=== PATIENT | male | born 1955 | race Caucasian/White ===

== ENCOUNTER 2019-01-09 11:03 | Inpatient (IN) | payer MEDICARE, MEDICAID ==
[~2019-01-09] VITALS: Ht 172.7 cm; Wt 73.2 kg
[2019-01-09] MEDS ORDERED: IV NORMAL SALINE 1,000ML 1,000 ML IV ONE ×2 (11:45→13:15)
[2019-01-09 11:50] LABS: BASO % 0 % (0-3); EOS % 0 % (0-3); HEMATOCRIT 43.8 % (39.0-53.0); HEMOGLOBIN 14.4 g/dL (13.0-17.5); LYMPH # 1.9 x10^3/uL (1.0-4.8); LYMPH % 15 % (24-48); MEAN CORPUSCULAR HEMOGLOBIN 29 pg (25-35); MEAN CORPUSCULAR HGB CONC 33 g/dL (31-37); MEAN CORPUSCULAR VOLUME 89 fL (79-100); MONO # 0.9 x10^3/uL (0.0-1.1); MONO % 7 % (0-9); NEUT # 9.7 x10^3uL (1.8-7.7); NEUT % 77 % (31-73); PLATELET COUNT 254 x10^3/uL (140-400); RED BLOOD COUNT 4.94 x10^6/uL (4.30-5.70); RED CELL DISTRIBUTION WIDTH 13.6 % (11.5-14.5); WHITE BLOOD COUNT 12.5 x10^3/uL (4.0-11.0)
[2019-01-09 12:11] LABS: ACETAMIN < 2.0 mcg/mL (10-30); SALIC 1.6 mg/dL (2.8-20.0)
[2019-01-09 12:17] LABS: ALBUMIN 3.7 g/dL (3.4-5.0); ALBUMIN/GLOBULIN RATIO 0.9 (1.0-1.7); CALCIUM 9.6 mg/dL (8.5-10.1); CREATININE 1.5 mg/dL (0.7-1.3); GFR 47.6; MAGNESIUM 2.3 mg/dL (1.8-2.4); POTASSIUM 3.6 mmol/L (3.5-5.1); TOTAL BILIRUBIN 2.3 mg/dL (0.2-1.0); TOTAL PROTEIN 7.6 g/dL (6.4-8.2)
--- NOTE | 2019-01-09 13:07 | PHYS DOC ---
Past History Past Medical History: Depression, Diabetes, High Cholesterol, Hypertension, Hypothyroid, Other Additional Past Medical Histor: schizoaffective disorder, insomnia, rosacea Past Surgical History: Appendectomy, Tonsillectomy Alcohol Use: None Drug Use: None Adult General Chief Complaint Chief Complaint: PSYCH EVALUATION HPI HPI Patient is a [age] year old [sex] who presents with [] Review of Systems Review of Systems Constitutional: Denies fever or chills [] Eyes: Denies change in visual acuity, redness, or eye pain [] HENT: Denies nasal congestion or sore throat [] Respiratory: Denies cough or shortness of breath [] Cardiovascular: No additional information not addressed in HPI [] GI: Denies abdominal pain, nausea, vomiting, bloody stools or diarrhea [] : Denies dysuria or hematuria [] Musculoskeletal: Denies back pain or joint pain [] Integument: Denies rash or skin lesions [] Neurologic: Denies headache, focal weakness or sensory changes [] Endocrine: Denies polyuria or polydipsia [] All other systems were reviewed and found to be within normal limits, except as documented in this note. Current Medications Current Medications Current Medications Medications (Trade) Dose Ordered Sig/Sanna Start Time Stop Time Status Last Admin Dose Admin Sodium Chloride 1,000 ml @ 1,000 mls/hr 1X ONCE 01/09/19 11:45 01/09/19 12:44 DC 01/09/19 11:52 1,000 MLS/HR Allergies Allergies Allergies Coded Allergies Type Severity Reaction Last Updated Verified No Known Drug Allergies 01/09/19 No Physical Exam Physical Exam Constitutional: Well developed, well nourished, no acute distress, non-toxic appearance. [] HENT: Normocephalic, atraumatic, bilateral external ears normal, oropharynx moist, no oral exudates, nose normal. [] Eyes: PERRLA, EOMI, conjunctiva normal, no discharge. [] Neck: Normal range of motion, no tenderness, supple, no stridor. [] Cardiovascular:Heart rate regular rhythm, no murmur [] Lungs & Thorax: Bilateral breath sounds clear to auscultation [] Abdomen: Bowel sounds normal, soft, no tenderness, no masses, no pulsatile masses. [] Skin: Warm, dry, no erythema, no rash. [] Back: No tenderness, no CVA tenderness. [] Extremities: No tenderness, no cyanosis, no clubbing, ROM intact, no edema. [] Neurologic: Alert and oriented X 3, normal motor function, normal sensory f unction, no focal deficits noted. [] Psychologic: Affect normal, judgement normal, mood normal. [] Current Patient Data Vital Signs Vital Signs Date Time Temp Pulse Resp B/P (MAP) Pulse Ox O2 Delivery O2 Flow Rate FiO2 01/09/19 11:16 97.6 117 16 97 Room Air Lab Results Laboratory Tests Test 01/09/19 11:30 01/09/19 12:00 White Blood Count 12.5 x10^3/uL (4.0-11.0) H Red Blood Count 4.94 x10^6/uL (4.30-5.70) Hemoglobin 14.4 g/dL (13.0-17.5) Hematocrit 43.8 % (39.0-53.0) Mean Corpuscular Volume 89 fL (79-100) Mean Corpuscular Hemoglobin 29 pg (25-35) Mean Corpuscular Hemoglobin Concent 33 g/dL (31-37) Red Cell Distribution Width 13.6 % (11.5-14.5) Platelet Count 254 x10^3/uL (140-400) Neutrophils (%) (Auto) 77 % (31-73) H Lymphocytes (%) (Auto) 15 % (24-48) L Monocytes (%) (Auto) 7 % (0-9) Eosinophils (%) (Auto) 0 % (0-3) Basophils (%) (Auto) 0 % (0-3) Neutrophils # (Auto) 9.7 x10^3uL (1.8-7.7) H Lymphocytes # (Auto) 1.9 x10^3/uL (1.0-4.8) Monocytes # (Auto) 0.9 x10^3/uL (0.0-1.1) Eosinophils # (Auto) 0.0 x10^3/uL (0.0-0.7) Basophils # (Auto) 0.0 x10^3/uL (0.0-0.2) Sodium Level 139 mmol/L (136-145) Potassium Level 3.6 mmol/L (3.5-5.1) Chloride Level 99 mmol/L (98-107) Carbon Dioxide Level 22 mmol/L (21-32) Anion Gap 18 (6-14) H Blood Urea Nitrogen 28 mg/dL (8-26) H Creatinine 1.5 mg/dL (0.7-1.3) H Estimated GFR (Cockcroft-Gault) 47.6 BUN/Creatinine Ratio 19 (6-20) Glucose Level 175 mg/dL (70-99) H Calcium Level 9.6 mg/dL (8.5-10.1) Magnesium Level 2.3 mg/dL (1.8-2.4) Total Bilirubin 2.3 mg/dL (0.2-1.0) H Aspartate Amino Transferase (AST) 83 U/L (15-37) H Alanine Aminotransferase (ALT) 101 U/L (16-63) H Alkaline Phosphatase 94 U/L (46-116) Creatine Kinase 2464 U/L (39-308) H Creatine Kinase MB (Mass) 11.6 ng/mL (0.0-3.6) H Creatine Kinase MB Relative Index 0.5 % (0-4) Troponin I Quantitative < 0.017 ng/mL (0-0.055) Total Protein 7.6 g/dL (6.4-8.2) Albumin 3.7 g/dL (3.4-5.0) Albumin/Globulin Ratio 0.9 (1.0-1.7) L Salicylates Level 1.6 mg/dL (2.8-20.0) L Salicylate Last Dose Date Unknown Salicylate Last Dose Time Unknown Acetaminophen Level < 2.0 mcg/mL (10-30) L Acetaminophen Last Dose Date Unknown Acetaminophen Last Dose Time Unknown Ethyl Alcohol Level < 10 mg/dL (0-10) Prothrombin Time 10.5 SEC (9.4-11.4) Prothrombin Time INR 1.0 (0.9-1.1) Activated Partial Thromboplast Time 24 SEC (23-33) EKG EKG @1140 Sinus tachycardia at 108bpm, NO ST elevation, QRS 86ms, QT/QTc 338/457ms Radiology/Procedures Radiology/Procedures [] Course & Med Decision Making Course & Med Decision Making Pertinent Labs and Imaging studies reviewed. (See chart for details) [] Dragon Disclaimer Dragon Disclaimer This electronic medical record was generated, in whole or in part, using a voice recognition dictation system. Departure Departure: Impression: Primary Impression: Rhabdomyolysis Additional Impressions: Renal insufficiency Dehydration Agitation Disposition: 09 ADMITTED INPATIENT Admitting Physician: Fermín Vera Condition: STABLE Referrals: REAGAN OSUNA DO (PCP) Problem Qualifiers Primary Impression: Rhabdomyolysis Rhabdomyolysis type: non-traumatic Qualified Codes: M62.82 - Rhabdomyolysis TAMMY SCHROEDER DO Jan 09, 2019 13:07
[2019-01-09] MEDS ORDERED: DEXTROSE 50% 25 GM / 50ML DISP.SYRIN. IV PRN (13:15)
[2019-01-09 13:24] LABS: AMPHETAMINE/METHAMPHETAMINE NEG (NEG); BARBITURATES NEG (NEG); BENZODIAZEPINES POS (NEG); CANNABINOIDS NEG (NEG); COCAINE NEG (NEG); METHADONE NEG (NEG); OPIATES NEG (NEG); PHENCYCLIDINE NEG (NEG)
[2019-01-09 13:37] LABS: BACTERIA,URINE FEW /HPF (0-FEW); BILIRUBIN,URINE SMALL (NEG); CLARITY,URINE HAZY; COLOR,URINE AMBER; GLUCOSE,URINE NEG (NEG); NITRITE,URINE NEG (NEG); RBC,URINE OCC /HPF (0-2); SQUAMOUS EPITHELIAL CELL,UR OCC /LPF; UROBILINOGEN,URINE 1 mg/dL (0.2 mg/dL); WBC,URINE OCC /HPF (0-4)
[2019-01-09 13:38] LABS: GRANULAR CASTS,URINE FEW /HPF; HYALINE CASTS, URINE FEW /HPF
[2019-01-09 14:30] VITALS: BP 112/72
[2019-01-09] MEDS ORDERED: METO-239 PO (15:15)
[2019-01-09] MEDS ORDERED: CLOZ100T7 PO (15:15)
[2019-01-09] MEDS ORDERED: MEGE400O2 PO (15:15)
[2019-01-09] MEDS ORDERED: GLIP2.5T4 PO (15:15)
[2019-01-09] MEDS ORDERED: DONE10TA7 PO (15:15)
[2019-01-09] MEDS ORDERED: CITA40TA12 PO (15:15)
[2019-01-09] MEDS ORDERED: LITH300C PO (15:15)
[2019-01-09] MEDS ORDERED: LINA290C PO (15:15)
[2019-01-09] MEDS ORDERED: DIAZ2TAB PO (15:15)
[2019-01-09] MEDS ORDERED: HALO5TAB PO (15:15)
[2019-01-09] MEDS ORDERED: MEDR2.5T28 PO (15:26)
[2019-01-09] MEDS ORDERED: LEVO75TA5 PO (15:26)
[2019-01-09] MEDS ORDERED: CYAN10002 IM (15:26)
[2019-01-09] MEDS ORDERED: TRAZ-86 PO (15:26)
[2019-01-09] MEDS ORDERED: SIMV20TA18 PO (15:26)
--- NOTE | 2019-01-09 15:30 | NUR ---
The patient, SEAN FONTAINE, 63 y/o, M admitted by STEPHANIE GAMING MD, was given written information regarding hospital policies, unit procedures and contact persons. Valuables were checked and left in room. Patient oriented to call light and room, able to make needs known. Denies pain or discomfort at this time. Patient complains of feeling anxious and would like the medication that was given to him in the ER. Dr Gaming here at this time to see patient. Home medications being reviewed at this time. IV fluids continued for possible rhabdo. Patient able to verbalize POC, Dr George consulted.
[2019-01-09] MEDS ORDERED: BENZ2AMP4 PO (15:32)
[2019-01-09] MEDS ORDERED: PANT40TA5 PO (15:32)
[2019-01-09] MEDS: INSULIN LISPRO 300 UNITS/3 ML VIAL. SQ SCH (16:50)
--- NOTE | 2019-01-09 17:18 | NUR ---
Patient feeling comfortable after PRN ativan given. Patient continues to state "just keep giving me meds to help, i know i am in good hands."
[2019-01-09] MEDS ORDERED: COGENTIN PO (18:02)
--- NOTE | 2019-01-09 18:19 | HP ---
ADMIT DATE: 01/09/2019 HISTORY OF PRESENT ILLNESS: The patient is a 63-year-old male patient, a resident at [facility] in [place], [place], who was referred to [facility] on account of self-neglect paranoid, not eating since 01/02/2019, not taking his medication since 01/02/2019, increased paranoia, pacing, has insomnia, combative towards staff on 01/08/2019, agitated, isolated, decreased communication, refused counseling, education, and encouragement. All this in a background of schizoaffective disorder, major depressive disorder; however, when he was evaluated in the Emergency Room of [facility], he was found to have rhabdomyolysis and acute kidney injury. His creatinine is up to 1.5 from his baseline of about 1 mg. As of 08/09/2018, his BUN at that time was also only 14 mg/dL and his CK was high at almost 2500 and therefore he was admitted with rhabdomyolysis as well as acute kidney injury and was started on IV fluid and once medically stabilized, he can be transferred to [facility] for inpatient psychiatric stabilization. PAST MEDICAL HISTORY: Significant for hypothyroidism, type 2 diabetes, hyperlipidemia, hypertension, benign prostatic hypertrophy. PAST SURGICAL HISTORY: Significant for appendectomy. ALLERGIES: He has no known drug allergies. MEDICATIONS: He is currently on following medications: He is on Aricept 10 mg at bedtime, simvastatin 20 mg at bedtime, metoprolol succinate 25 mg once a day, Celexa 40 mg once a day, trazodone 100 mg at bedtime, clozapine 175 mg p.o. b.i.d., haloperidol 5 mg p.o. every 6 hours, diazepam 2 mg 3 times a day, lithium carbonate 300 mg once a day, benztropine mesylate for Cogentin 1 mg twice a day, Protonix 40 mg once a day, linaclotide for Linzess 290 mcg once a day, glipizide 2.5 mg once a day. He is on medroxyprogesterone acetate 5 mg twice a day. He is on Megace 400 mg twice a day, levothyroxine sodium 75 mcg once a day, cyanocobalamin 1000 mcg once a day. FAMILY HISTORY: He has 1 older brother who is alive and apparently healthy. His both parents are still alive in their 90s and the patient is not aware of any medical problems. SOCIAL HISTORY: He is currently residing at [facility]. He is , has no children. He never smoked, does not drink alcohol or use any recreational drugs. 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 He went to college and apparently, according to his statement, he has been punished for his achievement in the college. REVIEW OF SYSTEMS: The patient denied any blurring of vision, cataract, glaucoma or macular degeneration. Denied any earache, tinnitus or sensorineural deafness. Denied any nosebleeds, stuffy nose or postnasal drip. Denied any sore throat, sore tongue, toothache, hoarseness of voice or difficulty swallowing. Denied any nausea, vomiting, diarrhea or constipation. Denied any hematemesis, melena or hematochezia. Denied any dysuria, frequency or hematuria. Denied any chest pain, shortness of breath, orthopnea or paroxysmal nocturnal dyspnea. Denied any cough, phlegm or hemoptysis. Denied any chills, rigors or fever. PHYSICAL EXAMINATION: GENERAL: On arrival to the Emergency Room, he looked well and was clearly in no apparent respiratory distress. No pallor, jaundice, cyanosis or thyromegaly. No jugular venous distention. No limb edema. VITAL SIGNS: His heart rate was 117, blood pressure was 138/77, temperature was 97.6, respiratory rate was 16, and oxygen saturation was 97%. HEAD, EYES, EARS, NOSE AND THROAT: Showed normocephalic, atraumatic. NECK: Supple. HEART: Showed normal first and second heart sounds. No gallop, rub or murmur. CHEST: Clear to auscultation. No crepitation or rhonchi. ABDOMEN: Distended, soft, nontender. NEUROLOGIC: He was awake, alert. Cranial nerves were intact. He is clearly paranoid. He is able to move his extremities without difficulty, apparently ambulates without assistance or assistive devices. LABORATORY DATA: His lab work showed his white cell count to be 12,500, hemoglobin 14.4, hematocrit 44, MCV 89 and platelet count 254,000 with normal manual differential. His chemistry showed a serum sodium 139, potassium 3.6, chloride 99, bicarbonate 22, anion gap of 18, BUN 28, creatinine 1.5, estimated GFR was 47 mL per minute. His glucose 175, calcium was 9.6, magnesium was 2.3. Total bilirubin 2.3. AST and ALT are elevated. Alkaline phosphatase is normal. His CK was 2464. Total protein was 7.6, albumin was 3.7. His prothrombin time was 10.5, INR 1, aPTT was 24. Urinalysis showed the urine was saad, hazy with a pH of 5.5, specific gravity of 1.020. There is trace of protein, negative for glucose, large amount of ketones, negative for blood or nitrite. There was small amount of bilirubin, negative for leukocyte esterase, no rbc's, no wbc's and no bacteria. Toxic screen was positive for benzodiazepine, but negative for opioids, methadone, barbiturates, phencyclidine, amphetamine, methamphetamine, cocaine, cannabinoids and alcohol. IMPRESSION AND PLAN: In summary, this is a 63-year-old male patient, who was evaluated in the Emergency Room for medical stability to be admitted to [facility] as the patient has been self-neglecting, not eating, paranoid since 01/02/2019, not taking his medication since 01/02/2019 with increased paranoia, pacing, insomnia, combative towards staff, agitated, isolated, decreased communication, refused any counseling, education and encouragement. All this is in a background of schizoaffective disorder and major depressive disorder. In the Emergency Room, he was found to have rhabdomyolysis and acute kidney injury and therefore the patient was admitted to [address] [place] [address] for medical stabilization. We will start him on IV fluid. I will probably hold his clozapine and his Haldol as a probable cause of his rhabdomyolysis. We will consult Dr. George to assist with his management and monitor his lab work on a daily basis. STEPHANIE GAMING MD DR: JAY/merced JOB#: [id number] / [id number]
[2019-01-09 19:33] VITALS: BP 105/67
[2019-01-09] MEDS: cloZAPine 100 MG TABLET PO SCH (20:00)
[2019-01-09] MEDS: medroxyPROGESTERone 5 MG TABLET PO SCH (20:00)
[2019-01-09] MEDS: BENZTROPINE MESYLATE 1 MG TABLET PO SCH (20:01)
[2019-01-09] MEDS: HALOPERIDOL 5 MG TABLET PO PRN (20:01)
[2019-01-09] MEDS: cloZAPine 25 MG TABLET PO SCH (20:01)
[2019-01-09] MEDS: diazePAM 2 MG TABLET PO SCH (20:01)
[2019-01-09] MEDS: DONEPEZIL HCL 10 MG TABLET PO SCH (20:01)
[2019-01-09] MEDS: traZODone 100 MG TABLET. PO SCH (20:01)
[2019-01-09] MEDS: MEGESTROL 400 MG/10 ML ORAL.SUSP. PO SCH (20:03)
--- NOTE | 2019-01-09 20:17 | PDOC ---
Exam Note: Vincent Note: Please also refer to the separate dictated note~for this date of service dictated separately.~Patient seen individually. Discussed the patient with Nursing staff reviewed the chart.~Reviewed interim history and current functioning. Reviewed vital signs,~Labs/ Radiology~and current medications noted below. Continue current treatment with the changes noted in the dictated addendum note Assessment: Vital Signs/I&O: Vital Signs Date Time Temp Pulse Resp B/P (MAP) Pulse Ox O2 Delivery O2 Flow Rate FiO2 01/09/19 19:33 97.4 82 20 105/67 (80) 98 Room Air Labs: Laboratory Tests Test 01/09/19 11:30 01/09/19 12:00 01/09/19 12:54 01/09/19 19:30 White Blood Count 12.5 x10^3/uL (4.0-11.0) H Red Blood Count 4.94 x10^6/uL (4.30-5.70) Hemoglobin 14.4 g/dL (13.0-17.5) Hematocrit 43.8 % (39.0-53.0) Mean Corpuscular Volume 89 fL (79-100) Mean Corpuscular Hemoglobin 29 pg (25-35) Mean Corpuscular Hemoglobin Concent 33 g/dL (31-37) Red Cell Distribution Width 13.6 % (11.5-14.5) Platelet Count 254 x10^3/uL (140-400) Neutrophils (%) (Auto) 77 % (31-73) H Lymphocytes (%) (Auto) 15 % (24-48) L Monocytes (%) (Auto) 7 % (0-9) Eosinophils (%) (Auto) 0 % (0-3) Basophils (%) (Auto) 0 % (0-3) Neutrophils # (Auto) 9.7 x10^3uL (1.8-7.7) H Lymphocytes # (Auto) 1.9 x10^3/uL (1.0-4.8) Monocytes # (Auto) 0.9 x10^3/uL (0.0-1.1) Eosinophils # (Auto) 0.0 x10^3/uL (0.0-0.7) Basophils # (Auto) 0.0 x10^3/uL (0.0-0.2) Sodium Level 139 mmol/L (136-145) Potassium Level 3.6 mmol/L (3.5-5.1) Chloride Level 99 mmol/L (98-107) Carbon Dioxide Level 22 mmol/L (21-32) Anion Gap 18 (6-14) H Blood Urea Nitrogen 28 mg/dL (8-26) H Creatinine 1.5 mg/dL (0.7-1.3) H Estimated GFR (Cockcroft-Gault) 47.6 BUN/Creatinine Ratio 19 (6-20) Glucose Level 175 mg/dL (70-99) H Calcium Level 9.6 mg/dL (8.5-10.1) Magnesium Level 2.3 mg/dL (1.8-2.4) Iron Level 24 ug/dL (65-175) L Total Iron Binding Capacity 268 ug/dL (250-450) Iron Saturation 9 % (15-34) L Total Bilirubin 2.3 mg/dL (0.2-1.0) H Aspartate Amino Transferase (AST) 83 U/L (15-37) H Alanine Aminotransferase (ALT) 101 U/L (16-63) H Alkaline Phosphatase 94 U/L (46-116) Creatine Kinase 2464 U/L (39-308) H Creatine Kinase MB (Mass) 11.6 ng/mL (0.0-3.6) H Creatine Kinase MB Relative Index 0.5 % (0-4) Troponin I Quantitative < 0.017 ng/mL (0-0.055) < 0.017 ng/mL (0-0.055) Total Protein 7.6 g/dL (6.4-8.2) Albumin 3.7 g/dL (3.4-5.0) Albumin/Globulin Ratio 0.9 (1.0-1.7) L Salicylates Level 1.6 mg/dL (2.8-20.0) L Salicylate Last Dose Date Unknown Salicylate Last Dose Time Unknown Acetaminophen Level < 2.0 mcg/mL (10-30) L Acetaminophen Last Dose Date Unknown Acetaminophen Last Dose Time Unknown [place] Level 0.1 mmol/L (0.6-1.2) L [place] Last Dose Date 01/08/19 [place] Last Dose Time 1999 Ethyl Alcohol Level < 10 mg/dL (0-10) Prothrombin Time 10.5 SEC (9.4-11.4) Prothrombin Time INR 1.0 (0.9-1.1) Activated Partial Thromboplast Time 24 SEC (23-33) Urine Collection Type Unknown Urine Color Raquel Urine Clarity Hazy Urine pH 5.5 Urine Specific [place] 1.020 Urine Protein Trace (NEG-TRACE) Urine Glucose (UA) Neg mg/dL (NEG) Urine Ketones (Stick) 40 mg/dL (NEG) Urine Blood Neg (NEG) Urine Nitrite Neg (NEG) Urine Bilirubin Small (NEG) Urine Urobilinogen Dipstick 1 mg/dL (0.2 mg/dL) Urine Leukocyte Esterase Neg (NEG) Urine RBC Occ /HPF (0-2) Urine WBC Occ /HPF (0-4) Urine Squamous Epithelial Cells Occ /LPF Urine Bacteria Few /HPF (0-FEW) Urine Cellular Casts Occ /HPF Urine Hyaline Casts Few /HPF Urine Granular Casts Few /HPF Urine Mucus Slight /LPF Urine Opiates Screen Neg (NEG) Urine Methadone Screen Neg (NEG) Urine Barbiturates Neg (NEG) Urine Phencyclidine Screen Neg (NEG) Urine Amphetamine/Methamphetamine Neg (NEG) Urine Benzodiazepines Screen Pos (NEG) Urine Cocaine Screen Neg (NEG) Urine Cannabinoids Screen Neg (NEG) Urine Ethyl Alcohol Neg (NEG) Current Medications: Meds: Current Medications Medications (Trade) Dose Ordered Sig/Sanna Route PRN Reason Start Time Stop Time Status Last Admin Dose Admin Sodium Chloride 1,000 ml @ 1,000 mls/hr 1X ONCE IV 01/09/19 11:45 01/09/19 12:44 DC 01/09/19 11:52 Sodium Chloride 1,000 ml @ 100 mls/hr 1X ONCE IV 01/09/19 13:15 01/09/19 23:14 01/09/19 13:30 Lorazepam (Ativan Inj) 0.5 mg 1X ONCE IVP 01/09/19 13:30 01/09/19 13:31 DC 01/09/19 13:29 Lorazepam (Ativan Inj) 2 mg PRN Q4HRS PRN IVP ANXIETY / AGITATION 01/09/19 15:45 01/09/19 16:02 Clozapine (Clozaril) 100 mg BID PO 01/09/19 21:00 01/09/19 20:00 Diazepam (Valium) 2 mg TID PO 01/09/19 21:00 01/09/19 20:01 Donepezil HCl (Aricept) 10 mg HS PO 01/09/19 21:00 01/09/19 20:01 Haloperidol (Haldol) 5 mg PRN Q6HRS PRN PO PSYCHOSIS 01/09/19 18:00 01/09/19 20:01 Medroxyprogesterone Acetate (Provera) 5 mg BID PO 01/09/19 21:00 01/09/19 20:00 Simvastatin (Zocor) 20 mg QHS PO 01/09/19 21:00 01/09/19 20:01 Trazodone HCl (Desyrel) 100 mg QHS PO 01/09/19 21:00 01/09/19 20:01 Megestrol Acetate (Megace) 400 mg BID PO 01/09/19 21:00 01/09/19 20:03 Benztropine Mesylate (Cogentin) 1 mg BID PO 01/09/19 21:00 01/09/19 20:01 Clozapine (Clozaril) 75 mg BID PO 01/09/19 21:00 01/09/19 20:01 I have reviewed the current psychotropics carefully including drug interactions. Risk benefit ratio favors no change other than as noted in my dictated progress note. Diagnosis: Problems: (1) Anxiety disorder (2) Schizoaffective disorder, chronic condition with acute exacerbation (3) Impulse control disorder KUNAL BEST MD Jan 09, 2019 20:17
[2019-01-09] MEDS ORDERED: SIMVASTATIN 20 MG TABLET PO SCH (21:00)
[2019-01-09] MEDS: IV NORMAL SALINE 1,000ML 1,000 ML IV SCH (23:07)
[2019-01-09 23:32] VITALS: BP 118/71
--- NOTE | 2019-01-10 04:07 | EKG ---
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
--- NOTE | 2019-01-10 05:52 | NUR ---
Shift Note: Pt is a/ox4, VSS, no c/o pain or n/v at this time, IV fluids infusing as ordered, steady gait observed, pt able to sleep throughout the night, pt c/o anxiety this am (haldol given). Pt also c/o congestion and would like throat lozenges, advised would let dayshift know to discuss w/physician during rounds, pt verbalized agreement.
[2019-01-10] MEDS: HALOPERIDOL 5 MG TABLET PO PRN (06:00)
[2019-01-10] MEDS ORDERED: LEVOTHYROXINE 75 MCG TABLET PO SCH (06:00)
[2019-01-10 06:16] LABS: HEMATOCRIT 32.6 % (39.0-53.0); RED BLOOD COUNT 3.7 x10^6/uL (4.30-5.70); RED CELL DISTRIBUTION WIDTH 13.5 % (11.5-14.5); WHITE BLOOD COUNT 6.5 x10^3/uL (4.0-11.0)
[2019-01-10 06:21] VITALS: BP 137/87
[2019-01-10 06:22] LABS: ALBUMIN 2.4 g/dL (3.4-5.0); ALBUMIN/GLOBULIN RATIO 0.8 (1.0-1.7); CALCIUM 7.9 mg/dL (8.5-10.1); CREATININE 1.2 mg/dL (0.7-1.3); GFR 61.6; POTASSIUM 3.1 mmol/L (3.5-5.1); TOTAL BILIRUBIN 0.7 mg/dL (0.2-1.0); TOTAL PROTEIN 5.3 g/dL (6.4-8.2)
[2019-01-10] MEDS ORDERED: LINACLOTIDE 145 MCG CAPSULE. PO SCH (07:00)
[2019-01-10] MEDS ORDERED: POTASSIUM CHLORIDE 20 MEQ TABLET.ER. PO ONE (07:45)
[2019-01-10] MEDS ORDERED: glipiZIDE ER 2.5 MG TAB.ER.24 PO SCH (08:00)
[2019-01-10] MEDS: cloZAPine 100 MG TABLET PO SCH ×2 (08:56→20:55)
[2019-01-10] MEDS: cloZAPine 25 MG TABLET PO SCH ×2 (08:56→20:56)
[2019-01-10] MEDS: medroxyPROGESTERone 5 MG TABLET PO SCH ×2 (08:56→20:56)
[2019-01-10] MEDS: MEGESTROL 400 MG/10 ML ORAL.SUSP. PO SCH ×2 (08:56→20:55)
[2019-01-10] MEDS: BENZTROPINE MESYLATE 1 MG TABLET PO SCH ×2 (08:57→20:55)
[2019-01-10] MEDS: IV NORMAL SALINE 1,000ML 1,000 ML IV SCH ×2 (08:58→19:15)
[2019-01-10] MEDS ORDERED: PANTOPRAZOLE 40 MG TABLET. PO SCH (09:00)
[2019-01-10] MEDS ORDERED: METOPROLOL SUCC 24HR ER 25 MG TAB.ER.24H. PO SCH (09:00)
[2019-01-10] MEDS ORDERED: CITALOPRAM 20 MG TABLET. PO SCH (09:00)
[2019-01-10] MEDS ORDERED: LITHIUM CARBONATE 300 MG TABLET PO SCH (09:00)
[2019-01-10] MEDS: INSULIN LISPRO 300 UNITS/3 ML VIAL. SQ SCH ×3 (09:06→16:35)
--- NOTE | 2019-01-10 09:10 | NUR ---
Patient complains of feeling very anxious. Scheduled diazepam not available in [facility], prn med provided per eMAR, will continue to monitor.
[2019-01-10 10:43] VITALS: BP 117/72
[2019-01-10] MEDS: diazePAM 2 MG TABLET PO SCH ×3 (10:56→20:56)
[2019-01-10 14:50] VITALS: BP 128/76
[2019-01-10 15:50] LABS: CALCIUM 8.1 mg/dL (8.5-10.1); CREATININE 1.2 mg/dL (0.7-1.3); GFR 61.6; POTASSIUM 3.6 mmol/L (3.5-5.1)
--- NOTE | 2019-01-10 17:47 | NUR ---
PT has had anxiety throughout the day most of the day. He was refusing to shower because he is 'not qualified' to take a shower here. He has been Obsessive and attention seeking throughout the shift. PT is to go back upstairs at 8 PM. PT want's to stay down here because he is comfortable here. Cheryl BAIRES
--- NOTE | 2019-01-10 18:57 | DS ---
DATE OF DISCHARGE: 01/09/2019 HOSPITAL COURSE: The patient is a 63-year-old male patient who was referred from [facility] on account of being self-neglect, paranoid and not eating since 01/02, not taking his medication with increased paranoia, pacing, has insomnia and combative towards staff, agitated, isolating himself and decreased communication, refused counseling, education encouragement, all this in a background of schizoaffective disorder, major depressive disorder. However when he was evaluated in the Emergency Room of [facility], he was found to have rhabdomyolysis and acute kidney injury and therefore he was admitted to [address] [place] [address] and was started on IV fluid as his CK was 2500. His kidney function is back to baseline with creatinine down to 1.2 from 1.5 and his CK came down from 2464 to 688 and therefore a decision was made to transfer him to [facility] to start the process of inpatient psychiatric stabilization. When I saw him this afternoon, he was resting flat in bed, in no apparent respiratory distress. PHYSICAL EXAMINATION: VITAL SIGNS: Heart rate was 93, blood pressure was 128/76, temperature was 98.3, respiratory rate 20, and oxygen saturation was 99% on room air. HEAD, EYES, EARS, NOSE AND THROAT: Showed normocephalic, atraumatic. NECK: Supple. HEART: Showed normal first and second heart sounds. No gallop or murmur. CHEST: Clear to auscultation. No crepitation or rhonchi. ABDOMEN: Distended, soft, nontender. NEUROLOGIC: He was awake, alert, responding appropriately. All cranial nerves intact. EXTREMITIES: He moves extremities without difficulty. He ambulates without assistance or assistive devices. LABORATORY DATA: This morning showed his white cell count to be 6500, hemoglobin 11, hematocrit 32, MCV 88 and platelet count of 167,000. His chemistry showed a serum sodium 147, potassium 3.6, chloride 113, bicarbonate 26, anion gap of 8, BUN 15, creatinine 1.2, estimated GFR was 61 mL per minute, his glucose 152, calcium was 8.1. CK was 688. DISCHARGE MEDICATIONS: He was transferred to [facility] to continue with all his medication including citalopram hydrobromide 40 mg once a day, clozapine 175 mg twice a day, Cogentin 1 mg twice a day, cyanocobalamin for vitamin B12 1000 mcg 1 mL intramuscular once a month, diazepam 2 mg 3 times a day, Aricept 10 mg at bedtime, glipizide 2.5 mg once a day, haloperidol 5 mg every 6 hours, levothyroxine sodium 75 mcg once a day, linaclotide for Linzess 290 mcg once a day, lithium carbonate 300 mg once a day, medroxyprogesterone acetate 5 mg twice a day, Megace 400 mg twice a day, metoprolol succinate 25 mg once a day, Protonix 40 mg once a day, simvastatin 20 mg at bedtime and trazodone 100 mg tablet at bedtime. FINAL DISCHARGE DIAGNOSES: 1. Acute kidney injury, resolved. 2. Rhabdomyolysis is improving, hypothyroidism, type 2 diabetes mellitus, hypertension, hyperlipidemia, benign prostatic hypertrophy. STEPHANIE GAMING MD DR: JAY/merced JOB#: [id number] / [id number]
--- NOTE | 2019-01-10 20:27 | PDOC ---
Exam Note: Vincent Note: Please also refer to the separate dictated note~for this date of service dictated separately.~Patient seen individually. Discussed the patient with Nursing staff reviewed the chart.~Reviewed interim history and current functioning. Reviewed vital signs,~Labs/ Radiology~and current medications noted below. Continue current treatment with the changes noted in the dictated addendum note Assessment: Vital Signs/I&O: Vital Signs Date Time Temp Pulse Resp B/P (MAP) Pulse Ox O2 Delivery O2 Flow Rate FiO2 01/10/19 14:50 98.3 93 20 128/76 (93) 99 01/10/19 10:43 Room Air I & O 01/09/19 01/09/19 01/10/19 15:00 23:00 07:00 Intake Total 1150 ml 930 ml 2660 ml Balance 1150 ml 930 ml 2660 ml Labs: Laboratory Tests Test 01/10/19 05:48 01/10/19 11:53 01/10/19 15:25 01/10/19 16:34 White Blood Count 6.5 x10^3/uL (4.0-11.0) Red Blood Count 3.70 x10^6/uL (4.30-5.70) L Hemoglobin 11.0 g/dL (13.0-17.5) L Hematocrit 32.6 % (39.0-53.0) L Mean Corpuscular Volume 88 fL (79-100) Mean Corpuscular Hemoglobin 30 pg (25-35) Mean Corpuscular Hemoglobin Concent 34 g/dL (31-37) Red Cell Distribution Width 13.5 % (11.5-14.5) Platelet Count 167 x10^3/uL (140-400) Sodium Level 143 mmol/L (136-145) 147 mmol/L (136-145) H Potassium Level 3.1 mmol/L (3.5-5.1) L 3.6 mmol/L (3.5-5.1) Chloride Level 110 mmol/L (98-107) H 113 mmol/L (98-107) H Carbon Dioxide Level 23 mmol/L (21-32) 26 mmol/L (21-32) Anion Gap 10 (6-14) 8 (6-14) Blood Urea Nitrogen 17 mg/dL (8-26) 15 mg/dL (8-26) Creatinine 1.2 mg/dL (0.7-1.3) 1.2 mg/dL (0.7-1.3) Estimated GFR (Cockcroft-Gault) 61.6 61.6 BUN/Creatinine Ratio 14 (6-20) Glucose Level 153 mg/dL (70-99) H 152 mg/dL (70-99) H Calcium Level 7.9 mg/dL (8.5-10.1) L 8.1 mg/dL (8.5-10.1) L Total Bilirubin 0.7 mg/dL (0.2-1.0) Aspartate Amino Transferase (AST) 40 U/L (15-37) H Alanine Aminotransferase (ALT) 61 U/L (16-63) Alkaline Phosphatase 69 U/L (46-116) Creatine Kinase 842 U/L (39-308) H 688 U/L (39-308) H Troponin I Quantitative < 0.017 ng/mL (0-0.055) Total Protein 5.3 g/dL (6.4-8.2) L Albumin 2.4 g/dL (3.4-5.0) L Albumin/Globulin Ratio 0.8 (1.0-1.7) L Thyroid Stimulating Hormone (TSH) 1.898 uIU/mL (0.358-3.740) Glucose (Fingerstick) 116 mg/dL (70-99) H 132 mg/dL (70-99) H Current Medications: Meds: Current Medications Medications (Trade) Dose Ordered Sig/Sanna Route PRN Reason Start Time Stop Time Status Last Admin Dose Admin Clozapine (Clozaril) 100 mg BID PO 01/09/19 21:00 01/10/19 08:56 Diazepam (Valium) 2 mg TID PO 01/09/19 21:00 01/10/19 13:39 Donepezil HCl (Aricept) 10 mg HS PO 01/09/19 21:00 01/09/19 20:01 Glipizide (Glucotrol Er) 2.5 mg DAILYWBKFT PO 01/10/19 08:00 01/10/19 08:57 Levothyroxine Sodium (Synthroid) 75 mcg DAILY06 PO 01/10/19 06:00 01/10/19 06:00 Medroxyprogesterone Acetate (Provera) 5 mg BID PO 01/09/19 21:00 01/10/19 08:56 Metoprolol Succinate (Toprol Xl) 25 mg DAILY PO 01/10/19 09:00 01/10/19 08:57 Pantoprazole Sodium (Protonix) 40 mg DAILY PO 01/10/19 09:00 01/10/19 08:57 Simvastatin (Zocor) 20 mg QHS PO 01/09/19 21:00 01/10/19 19:12 DC 01/09/19 20:01 Trazodone HCl (Desyrel) 100 mg QHS PO 01/09/19 21:00 01/09/19 20:01 Citalopram Hydrobromide (CeleXA) 40 mg DAILY PO 01/10/19 09:00 01/10/19 08:57 Linaclotide (Linzess) 290 mcg DAILY07 PO 01/10/19 07:00 01/10/19 06:00 Leland Carbonate 300 mg DAILY PO 01/10/19 09:00 01/10/19 08:56 Megestrol Acetate (Megace) 400 mg BID PO 01/09/19 21:00 01/10/19 08:56 Benztropine Mesylate (Cogentin) 1 mg BID PO 01/09/19 21:00 01/10/19 08:57 Clozapine (Clozaril) 75 mg BID PO 01/09/19 21:00 01/10/19 08:56 Sodium Chloride 1,000 ml @ 100 mls/hr Q10H IV 01/09/19 23:15 01/10/19 08:58 Potassium Chloride (Klor-Con) 40 meq 1X ONCE PO 01/10/19 07:45 01/10/19 07:46 DC 01/10/19 08:58 I have reviewed the current psychotropics carefully including drug interactions. Risk benefit ratio favors no change other than as noted in my dictated progress note. Diagnosis: Problems: (1) Anxiety disorder (2) Schizoaffective disorder, chronic condition with acute exacerbation (3) Impulse control disorder (4) Acute kidney injury (5) Rhabdomyolysis KUNAL BEST MD Jan 10, 2019 20:27
[2019-01-10 20:40] VITALS: BP 138/77
[2019-01-10] MEDS: DONEPEZIL HCL 10 MG TABLET PO SCH (20:55)
[2019-01-10] MEDS: traZODone 100 MG TABLET. PO SCH (20:56)
[2019-01-10 22:38] VITALS: BP 123/72
--- NOTE | 2019-01-11 00:54 | CONS ---
DATE OF CONSULTATION: 01/09/2019 PSYCHIATRIC CONSULTATION This late entry 01/09/2019 covers elements not covered in my initial note. I met with the patient evening of 01/09/2019. IDENTIFYING DATA: The patient is a 63-year-old male seen in bed [address], [address] [place] [address], for a psychiatric consult requested by Dr. Vera after the patient was admitted to [address] [place] [address] Medical/Surgical floor from the ER after he was referred to us from the [facility] by his legal guardian and the staff and his physicians on account of relapse of his schizoaffective disorder, bipolar type, with psychotic features. In the ER, he was found to have rhabdomyolysis and admitted to [address] [place] [address] for medical stabilization. He has remained psychotic, anxious, restless and is referred for psychiatric consultation for recommendations on psychotropics. The patient was seen individually evening of 01/09/2019. HISTORY OF PRESENT ILLNESS: The patient has a long history of schizoaffective disorder, bipolar type, mixed with psychotic features. He has been at the above nursing facility for some time, public sap basis administrator as his guardian. Over the past few weeks, he has been doing poorly, having self-neglect, not eating, paranoid, since start of this month, not taking his medications since 01/02/2019, pacing, having marked insomnia, combative towards staff, agitated, isolating. He has been followed by a psychiatrist at the halfway and has failed all of this with Dr. Adriana Gaytan. He has had a past psychiatric hospitalization in [place] in October-November of this year and [place] in April 2018. DRUG ALLERGIES: Negative. DIET: Regular. FAMILY HISTORY: Noncontributory. SOCIAL HISTORY: No alcohol, drug abuse, physical, sexual or elder abuse history is noted. He states he used to be in the [facility] and was posted in [employer] in 1975, talked about his having extramarital affairs and that is the reason he left her. CURRENT PSYCHOTROPICS: Clozaril 75 mg b.i.d., Celexa 40 mg a day, Valium 2 mg t.i.d., Aricept 10 mg a day, Haldol 5 mg q. 6 hours p.r.n. psychosis, lithium carbonate 300 mg daily, Provera 5 mg b.i.d. MENTAL STATUS EXAMINATION: The patient was seen individually evening of 01/09/2019 in his room. He is oriented to himself and situation. Speech has some latency, coherent, is quite verbal, open, forthcoming, but it is difficult to assess the veracity of some of his past history including his having extramarital affairs resulting in the divorce. Speech is coherent, abstraction fair, computation impaired, language function intact, attention span short. Mood and affect withdrawn, quite paranoid, psychotic. LABORATORY DATA: Reviewed. IMPRESSION: Schizoaffective disorder, bipolar type, mixed with psychotic features; anxiety disorder, unspecified; impulse control disorder, unspecified; rhabdomyolysis, hypothyroidism, diabetes mellitus, hyperlipidemia, hypertension. Rest unchanged. RECOMMENDATIONS: From a psychiatric standpoint, I would continue his current psychotropics. Since he is on Clozaril, weekly CBC, absolute neutrophil count should be checked, a lithium level should be checked. We would be happy to transfer him to [facility] once he is medically stable. Dr. Vera, thank you for the opportunity to participate in your patient's care. We will follow with you. KUNAL BEST MD DR: MARRY/merced JOB#: [id number] / [id number]
--- NOTE | 2019-01-11 03:20 | NUR ---
pt discharged from floor to senior behavioral. pt was escorted by senior behavioral staff in a wheelchair with his belongings.
--- NOTE | 2019-01-11 21:38 | PN ---
DATE: 01/10/2019 PSYCHIATRIC PROGRESS NOTE This late entry 01/10/2019 covers the elements not covered in my initial note. SUBJECTIVE: I met with the patient in his room in the evening. Discussed with nursing staff including staff from [facility] to help facilitate transfer to the Psychiatry service for stabilization. Overall, the patient remains somewhat anxious, restless, paranoid, suspicious, but not aggressive. His rhabdomyolysis seems to be stabilizing. REVIEW OF SYSTEMS: No CV, , pulmonary, eye system symptoms on review, does complain of tiredness. MENTAL STATUS EXAM: Reasonably oriented to place and situation. Speech has some latency, coherent. Abstraction fair, computation impaired, language function intact, attention span short. Mood and affect somewhat withdrawn. LABORATORY DATA: Reviewed. IMPRESSION: Schizoaffective disorder, bipolar type, mixed with psychotic features. Rest unchanged. PLAN: No change from initial note. Continue his current psychotropics. Follow labs level. Consequent to the Clozaril and the lithium, transferred to [facility]. MAN Alan BEST MD DR: MARRY/merced JOB#: [id number] / [id number]
[2019-02-08] MEDS ORDERED: CYANOCOBALAMIN (VITAMIN B-12) 1,000 MCG/ML VIAL IM SCH (09:00)
== END 2019-01-10 22:40 | DRG 557 ==
LOC: ER 11:03 → 1 SOUTH 13:00 → ER 14:14
PROVIDERS: ADMIT Internal Medicine; ATTEND Internal Medicine
DX: M62.82 Rhabdomyolysis (principal); N17.0 Acute kidney failure with tubular necrosis; E78.00 Pure hypercholesterolemia, unspecified; E03.9 Hypothyroidism, unspecified; I10 Essential (primary) hypertension; E11.9 Type 2 diabetes mellitus without complications; F25.0 Schizoaffective disorder, bipolar type; G47.00 Insomnia, unspecified; E78.5 Hyperlipidemia, unspecified; N40.0 Benign prostatic hyperplasia without lower urinary tract symptoms; F41.9 Anxiety disorder, unspecified; F63.9 Impulse disorder, unspecified; E86.0 Dehydration; Z79.899 Other long term (current) drug therapy; Z90.49 Acquired absence of other specified parts of digestive tract
CPT/HCPCS: 36415; 80048; 80053; 80178; 80307; 80329; 81001; 82550; 82553; 82947; 83540; 83550; 83735; 84443; 84484; 85025; 85027; 85610; 85730; 93005; 96361; 96374; G0480; J1815; J2060; 82003; 99285-25; J7030

== ENCOUNTER 2019-01-10 22:45 | Inpatient (IN) | payer MEDICARE, MEDICAID ==
[~2019-01-10] VITALS: Ht 172.7 cm; Wt 78.2 kg
[2019-01-10 22:45] VITALS: BP 134/81
[~2019-01-10 22:45] MED LIST: BENZ2AMP4 PO; CITA40TA12 PO; CLOZ100T7 PO; COGENTIN PO; CYAN10002 IM; DIAZ2TAB PO; DONE10TA7 PO; GLIP2.5T4 PO; HALO5TAB PO; LEVO75TA5 PO; LINA290C PO; LITH300C PO; MEDR2.5T28 PO; MEGE400O2 PO; METO-239 PO; PANT40TA5 PO; SIMV20TA18 PO; TRAZ-125 PO
--- NOTE | 2019-01-10 22:45 | NUR ---
Admission Note with Justification for Admission to [facility] Patient admitted to [facility] for protective oversight for emergency stabilization of acute psychiatric crisis. Pt admitted from: [address] Mode of arrival: wheelchair Accompanied By: [facility] Staff Precipitating behaviors that initiated intake and admission: self-neglect, not eating or taking meds, paranoia, insomnia, pacing, combative with staff Description of failure of out patient attempts at stabilization in previous setting list behavior and medication trials: medication, psychiatrist visit, counseling, education, encouragement Behaviors and assessment findings upon admission: calm, cooperative Plan: Admit for protective oversight for adjustment and stabilization of medications, behaviors and mood. Intense treatment regimen including groups, medication adjustments, therapy, consistent regimen for ADL's, self care, and sleep hygiene. Daily monitoring by Inpatient staff, Psychiatry, and Medical Physician.
[2019-01-11] MEDS ORDERED: MAG HYDROX/AL HYDROX/SIMETH 30 ML ORAL.SUSP PO PRN (03:45)
[2019-01-11] MEDS ORDERED: METHYL SALICYLATE/MENTHOL TOPICAL OINTMENT 57GM TUBE. TP PRN (03:45)
[2019-01-11] MEDS ORDERED: ACETAMINOPHEN 325 MG TABLET PO PRN (03:45)
[2019-01-11] MEDS ORDERED: HALOPERIDOL 5 MG TABLET PO PRN (04:00)
[2019-01-11] MEDS: LEVOTHYROXINE 75 MCG TABLET PO SCH ×2 (06:08→08:40)
[2019-01-11 06:19] VITALS: BP 152/85
[2019-01-11 06:41] LABS: BASO % 0 % (0-3); EOS % 0 % (0-3); HEMATOCRIT 36.2 % (39.0-53.0); HEMOGLOBIN 12.1 g/dL (13.0-17.5); LYMPH # 1.6 x10^3/uL (1.0-4.8); LYMPH % 29 % (24-48); MEAN CORPUSCULAR HEMOGLOBIN 30 pg (25-35); MEAN CORPUSCULAR HGB CONC 33 g/dL (31-37); MEAN CORPUSCULAR VOLUME 89 fL (79-100); MONO # 0.5 x10^3/uL (0.0-1.1); MONO % 9 % (0-9); NEUT # 3.4 x10^3uL (1.8-7.7); NEUT % 62 % (31-73); PLATELET COUNT 191 x10^3/uL (140-400); RED BLOOD COUNT 4.07 x10^6/uL (4.30-5.70); RED CELL DISTRIBUTION WIDTH 13.6 % (11.5-14.5); WHITE BLOOD COUNT 5.4 x10^3/uL (4.0-11.0)
[2019-01-11 06:47] LABS: ALBUMIN 2.8 g/dL (3.4-5.0); ALBUMIN/GLOBULIN RATIO 0.8 (1.0-1.7); CALCIUM 8.9 mg/dL (8.5-10.1); CREATININE 1.1 mg/dL (0.7-1.3); GFR 68.1; MAGNESIUM 2.1 mg/dL (1.8-2.4); TOTAL BILIRUBIN 0.5 mg/dL (0.2-1.0); TOTAL PROTEIN 6.1 g/dL (6.4-8.2)
[2019-01-11] MEDS: LUBIPROSTONE 24 MCG CAPSULE PO SCH ×2 (08:00→17:13)
[2019-01-11] MEDS: CITALOPRAM 20 MG TABLET. PO SCH (08:40)
[2019-01-11] MEDS: MEGESTROL 400 MG/10 ML ORAL.SUSP. PO SCH ×2 (08:40→20:15)
[2019-01-11] MEDS: PANTOPRAZOLE 40 MG TABLET. PO SCH (08:40)
[2019-01-11] MEDS: glipiZIDE ER 2.5 MG TAB.ER.24 PO SCH (08:41)
[2019-01-11] MEDS: BENZTROPINE MESYLATE 1 MG TABLET PO SCH ×2 (08:41→20:14)
[2019-01-11] MEDS: diazePAM 2 MG TABLET PO SCH ×3 (08:41→20:14)
[2019-01-11] MEDS: METOPROLOL SUCC 24HR ER 25 MG TAB.ER.24H. PO SCH (08:41)
[2019-01-11] MEDS: LITHIUM CARBONATE 300 MG TABLET PO SCH (08:43)
[2019-01-11] MEDS ORDERED: cloZAPine 100 MG TABLET PO SCH ×2 (09:00)
[2019-01-11] MEDS ORDERED: CYANOCOBALAMIN (VITAMIN B-12) 1,000 MCG/ML VIAL IM SCH (09:00)
[2019-01-11] MEDS ORDERED: cloZAPine 25 MG TABLET PO SCH (09:00)
--- NOTE | 2019-01-11 11:25 | NUR ---
SIMI spoke with pt son, Tacos, to find that he is the DPOA, as his Aunt has stepped down from the position. She no longer wants to have that position and reports that even if we did try her, she will refer to him. Pt son reports that pt does not complete transfers well. The first few days are rough for him, but after that is typically smooth sailing. Pt son clarified that pt started at [facility] and because [facility] couldn't maintain pt during the transfer, they had a lateral move to [facility]. [facility] had behaviors for a few days until pt was acclimated to the unit. [facility] wanted to send pt to [facility] and it did not work out as the family refused to have him transferred and had to get a lot of people involved to stop the move. Pt spent 3 weeks at [facility] and then transferred to [facility] which pt has been for the last couple weeks. Pt son reports that pt has never been physically aggressive to anyone at [facility]. SW went over the intake with pt and questioned that "held down by 8 men", in which pt son reports that is a delusion. He discussed it with his son and the son reports he is not sure if this happened as a nightmare or as an actual delusions through the day, but pt has never been held by 8 men. Pt son also reports that pt lived at home just up until 4 months ago. "his delusions and paranoia worsened, so we thought it was time for placement". Pt son also reports that pt , Stephen, is a major trigger and SW informed pt that she is not to call or visit at this time. Once pt is able to calm down and is appropriately medicated, this can be reconsidered. Pt son does report that pt likes to help, so if there is anyway to incorporate his "help" as a means to keep him busy, that will make him happy. Pt also likes to zac with things, listen to folk music and talk about his dog Lady. Pt son reports that pt will be going back to [facility] once stabilized. SW will complete the Psychosocial with more information later today and have it posted [facility]. Addendum: 01/11/19 at 1559 by JUAN MANUEL COMER SW Note on wrong person. Please disregard.
[2019-01-11 13:41] LABS: THYROID STIM HORMONE (TSH) 1.442 uIU/mL (0.358-3.740)
[2019-01-11] MEDS ORDERED: FLU VAX QS 2019-20 (36MOS+)/PF 0.5 ML SYRINGE. VAX IM ONE (16:00)
[2019-01-11 16:27] VITALS: BP 125/78
[2019-01-11] MEDS: cloZAPine 100 MG TABLET PO SCH (20:14)
[2019-01-11] MEDS: SIMVASTATIN 20 MG TABLET PO SCH (20:20)
[2019-01-11] MEDS: DONEPEZIL HCL 10 MG TABLET PO SCH (20:20)
[2019-01-11] MEDS: traZODone 100 MG TABLET. PO SCH (20:20)
--- NOTE | 2019-01-11 20:39 | PDOC ---
Exam Note: Vincent Note: Please also refer to the separate dictated note~for this date of service dictated separately. Discussed the patient with Nursing staff reviewed the chart.~Reviewed interim history and current functioning. Reviewed vital signs,~Labs/ Radiology~and current medications noted below. Continue current treatment with the changes noted in the dictated addendum note Assessment: Vital Signs/I&O: Vital Signs Date Time Temp Pulse Resp B/P (MAP) Pulse Ox O2 Delivery O2 Flow Rate FiO2 01/11/19 16:27 98.4 93 18 125/78 (94) 98 Room Air I & O 01/10/19 01/10/19 01/11/19 15:00 23:00 07:00 Intake Total 0 ml Balance 0 ml Labs: Laboratory Tests Test 01/11/19 06:18 01/11/19 07:12 White Blood Count 5.4 x10^3/uL (4.0-11.0) Red Blood Count 4.07 x10^6/uL (4.30-5.70) L Hemoglobin 12.1 g/dL (13.0-17.5) L Hematocrit 36.2 % (39.0-53.0) L Mean Corpuscular Volume 89 fL (79-100) Mean Corpuscular Hemoglobin 30 pg (25-35) Mean Corpuscular Hemoglobin Concent 33 g/dL (31-37) Red Cell Distribution Width 13.6 % (11.5-14.5) Platelet Count 191 x10^3/uL (140-400) Neutrophils (%) (Auto) 62 % (31-73) Lymphocytes (%) (Auto) 29 % (24-48) Monocytes (%) (Auto) 9 % (0-9) Eosinophils (%) (Auto) 0 % (0-3) Basophils (%) (Auto) 0 % (0-3) Neutrophils # (Auto) 3.4 x10^3uL (1.8-7.7) Lymphocytes # (Auto) 1.6 x10^3/uL (1.0-4.8) Monocytes # (Auto) 0.5 x10^3/uL (0.0-1.1) Eosinophils # (Auto) 0.0 x10^3/uL (0.0-0.7) Basophils # (Auto) 0.0 x10^3/uL (0.0-0.2) Sodium Level 149 mmol/L (136-145) H Potassium Level 4.0 mmol/L (3.5-5.1) Chloride Level 114 mmol/L (98-107) H Carbon Dioxide Level 25 mmol/L (21-32) Anion Gap 10 (6-14) Blood Urea Nitrogen 15 mg/dL (8-26) Creatinine 1.1 mg/dL (0.7-1.3) Estimated GFR (Cockcroft-Gault) 68.1 BUN/Creatinine Ratio 14 (6-20) Glucose Level 127 mg/dL (70-99) H Calcium Level 8.9 mg/dL (8.5-10.1) Magnesium Level 2.1 mg/dL (1.8-2.4) Iron Level 27 ug/dL (65-175) L Total Iron Binding Capacity 228 ug/dL (250-450) L Iron Saturation 12 % (15-34) L Total Bilirubin 0.5 mg/dL (0.2-1.0) Aspartate Amino Transferase (AST) 32 U/L (15-37) Alanine Aminotransferase (ALT) 60 U/L (16-63) Alkaline Phosphatase 74 U/L (46-116) Total Protein 6.1 g/dL (6.4-8.2) L Albumin 2.8 g/dL (3.4-5.0) L Albumin/Globulin Ratio 0.8 (1.0-1.7) L Triglycerides Level 107 mg/dL (0-150) Cholesterol Level 103 mg/dL (0-200) LDL Cholesterol, Calculated 43 mg/dL (0-100) VLDL Cholesterol, Calculated 21 mg/dL (0-40) Non-HDL Cholesterol Calculated 64 mg/dL (0-129) HDL Cholesterol 39 mg/dL (40-60) L Cholesterol/HDL Ratio 2.0 Vitamin B12 Level 398 pg/mL (247-911) 25-Hydroxy Vitamin D Total 19.6 ng/mL (30-100) L Thyroid Stimulating Hormone (TSH) 1.442 uIU/mL (0.358-3.740) Butner Level 0.2 mmol/L (0.6-1.2) L Butner Last Dose Date 01/09/19 Butner Last Dose Time 0900 Treponema pallidum Antibody Nonreactive (Nonreactive) Glucose (Fingerstick) 131 mg/dL (70-99) H Current Medications: Meds: Current Medications Medications (Trade) Dose Ordered Sig/Sanna Route PRN Reason Start Time Stop Time Status Last Admin Dose Admin Diazepam (Valium) 2 mg TID PO 01/11/19 09:00 01/11/19 20:14 Donepezil HCl (Aricept) 10 mg HS PO 01/11/19 21:00 01/11/19 20:20 Levothyroxine Sodium (Synthroid) 75 mcg DAILY07 PO 01/11/19 07:00 01/11/19 08:40 Medroxyprogesterone Acetate (Provera) 5 mg BID PO 01/11/19 09:00 01/11/19 20:14 Metoprolol Succinate (Toprol Xl) 25 mg DAILY PO 01/11/19 09:00 01/11/19 08:41 Pantoprazole Sodium (Protonix) 40 mg DAILYAC PO 01/11/19 07:30 01/11/19 08:40 Simvastatin (Zocor) 20 mg QHS PO 01/11/19 21:00 01/11/19 20:20 Trazodone HCl (Desyrel) 100 mg QHS PO 01/11/19 21:00 01/11/19 20:20 Citalopram Hydrobromide (CeleXA) 40 mg DAILY PO 01/11/19 09:00 01/11/19 08:40 Lubiprostone (Amitiza) 24 mcg BIDWMEALS PO 01/11/19 08:00 01/11/19 17:13 Butner Carbonate 300 mg DAILY PO 01/11/19 09:00 01/11/19 08:43 Megestrol Acetate (Megace) 400 mg BID PO 01/11/19 09:00 01/11/19 20:15 Benztropine Mesylate (Cogentin) 1 mg BID PO 01/11/19 09:00 01/11/19 20:14 Clozapine (Clozaril) 100 mg BID PO 01/11/19 09:00 01/11/19 17:38 DC 01/11/19 08:43 Clozapine (Clozaril) 75 mg BID PO 01/11/19 09:00 01/11/19 17:38 DC 01/11/19 08:42 Influenza Virus Vaccine Quadrival (Afluria Quad 2019-20 (3yr Up) Syringe) 0.5 ml ONCE ONCE VAX IM 01/11/19 16:00 01/11/19 16:01 DC 01/11/19 17:16 Clozapine (Clozaril) 200 mg BID PO 01/11/19 21:00 01/11/19 20:14 I have reviewed the current psychotropics carefully including drug interactions. Risk benefit ratio favors no change other than as noted in my dictated progress note. Diagnosis: Problems: (1) Anxiety disorder (2) Schizoaffective disorder, chronic condition with acute exacerbation (3) Impulse control disorder (4) Acute kidney injury KUNAL BEST MD Jan 11, 2019 20:39
[2019-01-11 22:06] LABS: THYROXINE 5.5 ug/dL (4.5-12.0)
--- NOTE | 2019-01-11 22:55 | NUR ---
Nsg Note: Patient was in day room at time of medication administration and assessments. Patient was calm, cooperative and compliant. Patient appeared anxious and shaky. Patient was open and friendly. Patient went to sleep shortly after interaction. No other notable behaviors at this time.
[2019-01-12 00:06] LABS: HEMOGLOBIN A1C 7.2 % (4.8-5.6)
[2019-01-12 06:03] VITALS: BP 129/73
[2019-01-12] MEDS: LUBIPROSTONE 24 MCG CAPSULE PO SCH ×2 (08:07→17:09)
[2019-01-12] MEDS: PANTOPRAZOLE 40 MG TABLET. PO SCH (08:07)
[2019-01-12] MEDS: CITALOPRAM 20 MG TABLET. PO SCH (08:08)
[2019-01-12] MEDS: cloZAPine 100 MG TABLET PO SCH ×2 (08:08→20:00)
[2019-01-12] MEDS: LITHIUM CARBONATE 300 MG TABLET PO SCH (08:08)
[2019-01-12] MEDS: BENZTROPINE MESYLATE 1 MG TABLET PO SCH ×2 (08:08→19:59)
[2019-01-12] MEDS: diazePAM 2 MG TABLET PO SCH ×3 (08:09→19:59)
[2019-01-12] MEDS: glipiZIDE ER 2.5 MG TAB.ER.24 PO SCH (08:09)
[2019-01-12] MEDS: MEGESTROL 400 MG/10 ML ORAL.SUSP. PO SCH ×2 (08:09→19:59)
[2019-01-12] MEDS: METOPROLOL SUCC 24HR ER 25 MG TAB.ER.24H. PO SCH (08:09)
--- NOTE | 2019-01-12 09:50 | NUR ---
Patient was in the dining room during morning rounding, took medications whole, allowed for morning assessment. Patient denies pain, said that he slept "alright." No agitation noted. Will continue to monitor.
[2019-01-12 16:00] VITALS: BP 120/76
[2019-01-12] MEDS ORDERED: LEVOTHYROXINE 75 MCG TABLET PO SCH (16:30)
[2019-01-12] MEDS: CHOLECALCIFEROL (VITAMIN D3) 50,000 UNIT CAPSULE PO SCH (17:09)
[2019-01-12] MEDS: SIMVASTATIN 20 MG TABLET PO SCH (19:59)
[2019-01-12] MEDS: DONEPEZIL HCL 10 MG TABLET PO SCH (19:59)
[2019-01-12] MEDS: traZODone 100 MG TABLET. PO SCH (20:00)
--- NOTE | 2019-01-12 20:42 | PDOC ---
Exam Note: Vincent Note: Please also refer to the separate dictated note~for this date of service dictated separately.~Patient seen individually. Discussed the patient with Nursing staff reviewed the chart.~Reviewed interim history and current functioning. Reviewed vital signs,~Labs/ Radiology~and current medications noted below. Continue current treatment with the changes noted in the dictated addendum note Assessment: Vital Signs/I&O: Vital Signs Date Time Temp Pulse Resp B/P (MAP) Pulse Ox O2 Delivery O2 Flow Rate FiO2 01/12/19 16:00 98.9 102 14 120/76 (91) 95 01/12/19 06:03 Room Air I & O 01/11/19 01/11/19 01/12/19 15:00 23:00 07:00 Intake Total 0 ml 720 ml Balance 0 ml 720 ml Labs: Laboratory Tests Test 01/12/19 07:51 Glucose (Fingerstick) 143 mg/dL (70-99) H Current Medications: Meds: Current Medications Medications (Trade) Dose Ordered Sig/Sanna Route PRN Reason Start Time Stop Time Status Last Admin Dose Admin Donepezil HCl (Aricept) 10 mg HS PO 01/11/19 21:00 01/12/19 19:59 Simvastatin (Zocor) 20 mg QHS PO 01/11/19 21:00 01/12/19 19:59 Trazodone HCl (Desyrel) 100 mg QHS PO 01/11/19 21:00 01/12/19 20:00 Clozapine (Clozaril) 200 mg BID PO 01/11/19 21:00 01/12/19 20:00 Vitamin D (Vitamin D3) 50,000 unit WEEKLY PO 01/12/19 17:00 01/12/19 17:09 I have reviewed the current psychotropics carefully including drug interactions. Risk benefit ratio favors no change other than as noted in my dictated progress note. Diagnosis: Problems: (1) Anxiety disorder (2) Schizoaffective disorder, chronic condition with acute exacerbation (3) Impulse control disorder (4) Acute kidney injury (5) Rhabdomyolysis KUNAL BEST MD Jan 12, 2019 20:42
--- NOTE | 2019-01-12 23:24 | NUR ---
Pt in room at shift change he did not want to shower said he had one yesterday, none was documented. He eventually did shower. Meds were taken whole without difficulty. Pt withdrawn to room with flat affect. No behaviors.
[2019-01-13] MEDS: LEVOTHYROXINE 100 MCG TABLET PO SCH (05:34)
[2019-01-13 05:50] VITALS: BP 126/81
[2019-01-13] MEDS: LUBIPROSTONE 24 MCG CAPSULE PO SCH ×2 (08:37→17:54)
[2019-01-13] MEDS: PANTOPRAZOLE 40 MG TABLET. PO SCH (08:38)
[2019-01-13] MEDS: glipiZIDE ER 2.5 MG TAB.ER.24 PO SCH (08:38)
[2019-01-13] MEDS: LITHIUM CARBONATE 300 MG TABLET PO SCH ×2 (08:38→19:52)
[2019-01-13] MEDS: CITALOPRAM 20 MG TABLET. PO SCH (08:38)
[2019-01-13] MEDS: METOPROLOL SUCC 24HR ER 25 MG TAB.ER.24H. PO SCH (08:39)
[2019-01-13] MEDS: diazePAM 2 MG TABLET PO SCH ×3 (08:39→19:53)
[2019-01-13] MEDS: MEGESTROL 400 MG/10 ML ORAL.SUSP. PO SCH ×2 (08:40→19:54)
[2019-01-13] MEDS: BENZTROPINE MESYLATE 1 MG TABLET PO SCH ×2 (08:40→19:53)
[2019-01-13] MEDS: cloZAPine 100 MG TABLET PO SCH ×2 (08:40→19:52)
[2019-01-13 08:56] LABS: CALCIUM 9.5 mg/dL (8.5-10.1); CREATININE 1.3 mg/dL (0.7-1.3); GFR 56.1; POTASSIUM 4.5 mmol/L (3.5-5.1)
--- NOTE | 2019-01-13 09:38 | CONS ---
DATE OF CONSULTATION: 01/12/2019 REASON FOR CONSULTATION: Medical management. HISTORY OF PRESENT ILLNESS: The patient is a 63-year-old male patient, a resident at [facility] in [place], [place] who was referred recently to [facility] on account of self-neglect, paranoid, not eating since 01/02/2019, not taking his medication since 01/02/2019. Increased paranoia, pacing, has insomnia, combative towards staff, agitated, isolated, decreased communication, refused counseling, education encouragement all this in a background of schizoaffective disorder, major depressive disorder, however, he was evaluated in the Emergency Room at [facility], he was found to have rhabdomyolysis, acute kidney injury. His creatinine was up to 1.5 from his baseline of about 1 mg as of 08/17/2018. His BUN at that time was only mg/dL. His CK was high at 2500 and therefore, he was admitted to [address] [place] [address] with rhabdomyolysis as well as acute kidney injury, was started on IV fluid and his lab work and his kidney function and CK has improved. His creatinine came down from 1.5 to 1.2 and his CK came down from to 688, it was felt that the patient is stable to be admitted to [facility] for inpatient psychiatric stabilization. PAST MEDICAL HISTORY: Significant for hypothyroidism, type 2 diabetes mellitus, hyperlipidemia, hypertension, benign prostatic hypertrophy. PAST SURGICAL HISTORY: Significant for appendectomy. ALLERGIES: He has no known drug allergies. FAMILY HISTORY: He has 1 older brother who is alive and apparently healthy. His both parents are still alive in their 90s and the patient is not aware of any medical problem. SOCIAL HISTORY: He is currently residing at [facility]. He is , has no children. He never smoked. Does not drink alcohol or use any recreational drugs. 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 He went to college and apparently, according to his statement has been for his achievement in the college. MEDICATIONS: He is currently on following medication: He is on Aricept 10 mg once a day, simvastatin 20 mg at bedtime, metoprolol succinate 25 mg once a day, citalopram hydrobromide 40 mg once a day, trazodone 100 mg at bedtime, clozapine 175 mg twice a day, haloperidol 5 mg every 6 hours as needed, diazepam 2 mg 3 times a day, lithium carbonate 300 mg 1 capsule once a day and Protonix 40 mg once a day, Linzess 290 mcg once a day, glipizide extended release 2.5 mg once a day, medroxyprogesterone acetate 5 mg twice a day and Megace 400 mg twice a day. He is also on levothyroxine sodium 75 mcg once a day, cyanocobalamin vitamin B12 1000 mcg in 1 mL intramuscular every month and he is on Cogentin 1 mg p.o. b.i.d. REVIEW OF SYSTEMS: As per history of present illness. When I saw him this afternoon, he was resting, slightly propped up in bed, in no apparent respiratory distress. Sleepy but arousable . On questioning him, he denied any complaint. The nursing staff did not voice any concern. PHYSICAL EXAMINATION: GENERAL: On examining him, he looked well and was clearly in no apparent respiratory distress. No pallor, jaundice, cyanosis or thyromegaly. No jugular venous distention. No limb edema. VITAL SIGNS: Her heart rate was 102, blood pressure was 120/76, temperature was 98.9, respiratory rate was 14 and oxygen saturation was 95%. HEAD, EYES, EARS, NOSE AND THROAT: Normocephalic, atraumatic. NECK: Supple. HEART: Showed normal first and second heart sounds. No gallop or murmur. CHEST: Clear to auscultation. No crepitation or rhonchi. ABDOMEN: Distended, soft, nontender. No guarding or rigidity. No organomegaly. All hernial orifice intact sounds normal. NEUROLOGIC: He was grossly intact. LABORATORY DATA: This morning showed a white cell count 5400, hemoglobin 12, hematocrit 36, MCV 89 and platelet count 291,000. His chemistry showed that his serum sodium 149, potassium 4, chloride 114, bicarbonate 25, anion gap of 10, BUN 15, creatinine 1.1, estimated GFR was 68 mL per minute, his glucose was 127, calcium was 8.9, magnesium was 2.1. Serum iron, TIBC and iron saturation are all low consistent with anemia of chronic disease. Total bilirubin, AST, ALT, alkaline phosphatase were all normal. Total protein is 6.1, albumin 2.8. Serum triglycerides 107, total cholesterol 103, LDL was 43, VLDL was 21, HDL was 39 and ratio was 2. His TSH was 1.44. His total T4 and total T3 are both normal, however, 25-hydroxy vitamin D is low at 19.6. His hemoglobin A1c was 7.2%. His pallidum antibodies were negative and toxic screen showed that the lithium level is very low. IMPRESSION: In summary, this is a 63-year-old male patient who was admitted to [facility] on account of self-neglect, paranoia, not eating, not taking his medication with increased paranoia, pacing, has insomnia, combative towards staff, agitated to decreased communication, refused counseling, education encouragement all this in a background of schizoaffective disorder, major depressive disorder. Medically, he is known to have type 2 diabetes mellitus, hypothyroidism, hyperlipidemia, hypertension, benign prostatic hypertrophy. He was diagnosed with acute kidney injury that has resolved, rhabdomyolysis that has improved. He now has hypernatremia as well as vitamin D deficiency. PLAN: My plan is to replenish his vitamin D and also encouraged water intake. I would repeat his lab work tomorrow, particularly his BMP as well as CK to make sure that his rhabdomyolysis has completely resolved. STEPHANIE GAMING MD DR: JAY/merced JOB#: [id number] / [id number]
--- NOTE | 2019-01-13 14:17 | NUR ---
PRN tylenol given for L hip pain. He has been up for meals, otherwise withdraws to bed. Would not get up for P/T eval. Refuses to answer or move, even though awake. This afternoon he did talk more with 2 pm valium. States the only thing that helps his hip pain is to stay off of it. If he walks too much it hurts. A & O X3. Denies hallucinations, does not appear delusional. States "I just don't talk much". Reports he grew up in [place], [place]. Denies needs.
[2019-01-13 15:40] VITALS: BP 133/88
[2019-01-13] MEDS: DONEPEZIL HCL 10 MG TABLET PO SCH (19:52)
[2019-01-13] MEDS: traZODone 100 MG TABLET. PO SCH (19:53)
[2019-01-13] MEDS: SIMVASTATIN 20 MG TABLET PO SCH (19:53)
[2019-01-13] MEDS: cloZAPine 25 MG TABLET PO SCH (19:54)
--- NOTE | 2019-01-13 19:59 | PDOC ---
Exam Note: Vincent Note: Please also refer to the separate dictated note~for this date of service dictated separately.~Patient seen individually. Discussed the patient with Nursing staff reviewed the chart.~Reviewed interim history and current functioning. Reviewed vital signs,~Labs/ Radiology~and current medications noted below. Continue current treatment with the changes noted in the dictated addendum note Assessment: Vital Signs/I&O: Vital Signs Date Time Temp Pulse Resp B/P (MAP) Pulse Ox O2 Delivery O2 Flow Rate FiO2 01/13/19 15:40 98.2 96 14 133/88 (103) 100 01/12/19 06:03 Room Air I & O 01/12/19 01/12/19 01/13/19 15:00 23:00 07:00 Intake Total 480 ml 540 ml Balance 480 ml 540 ml Labs: Laboratory Tests Test 01/13/19 07:28 01/13/19 07:53 Glucose (Fingerstick) 155 mg/dL (70-99) H Sodium Level 145 mmol/L (136-145) Potassium Level 4.5 mmol/L (3.5-5.1) Chloride Level 109 mmol/L (98-107) H Carbon Dioxide Level 28 mmol/L (21-32) Anion Gap 8 (6-14) Blood Urea Nitrogen 17 mg/dL (8-26) Creatinine 1.3 mg/dL (0.7-1.3) Estimated GFR (Cockcroft-Gault) 56.1 Glucose Level 164 mg/dL (70-99) H Calcium Level 9.5 mg/dL (8.5-10.1) Creatine Kinase 637 U/L (39-308) H Current Medications: Meds: Current Medications Medications (Trade) Dose Ordered Sig/Sanna Route PRN Reason Start Time Stop Time Status Last Admin Dose Admin Levothyroxine Sodium (Synthroid) 100 mcg DAILY@0600 PO 01/13/19 06:00 01/13/19 05:34 Clozapine (Clozaril) 200 mg DAILY PO 01/13/19 09:00 01/13/19 08:40 [place] Carbonate 300 mg BID PO 01/13/19 09:00 01/13/19 19:52 Clozapine (Clozaril) 25 mg HS PO 01/13/19 21:00 01/13/19 19:54 Clozapine (Clozaril) 200 mg QHS PO 01/13/19 21:00 01/13/19 19:52 I have reviewed the current psychotropics carefully including drug interactions. Risk benefit ratio favors no change other than as noted in my dictated progress note. Diagnosis: Problems: (1) Anxiety disorder (2) Schizoaffective disorder, chronic condition with acute exacerbation (3) Impulse control disorder (4) Acute kidney injury KUNAL BEST MD Jan 13, 2019 19:59
--- NOTE | 2019-01-13 21:41 | HP ---
ADMIT DATE: 01/10/2019 PSYCHIATRIC ADMISSION HISTORY/EVALUATION This late entry 01/11/2019 covers the elements not covered in my initial note. IDENTIFYING DATA: The patient is a 63-year-old male referred to us from [facility], admitted by his public marketing administrator guardian on account of relapse of his schizoaffective disorder, bipolar type, with psychotic features. He was having self-neglect, paranoia, not eating or taking his medications since 01/02/2019. He was pacing, had marked insomnia, agitated, isolative, combative towards staff since 01/08/2019. Behaviors were deemed dangerous, unmanageable, resulting in this referral. Following arrival at the ER at [facility], he was found to have rhabdomyolysis, admitted to [address] [place] [address]. I followed him there from a psychiatric standpoint, once stable, he is then being referred to us for this inpatient psychiatric stabilization. CHIEF COMPLAINT: "I am okay. I am just tired." HISTORY OF PRESENT ILLNESS: The patient has a long history of schizoaffective disorder, bipolar type. The reader is referred to my consultation report from [address] [place] [address] for details. He had been stable, but recently having marked relapse with sleep and appetite changes, paranoia, agitation. He also has a history of significant mood swings. No suicidal or homicidal ideation. PAST PSYCHIATRIC HISTORY: As above. MEDICAL HISTORY: Hypothyroidism, type 2 diabetes mellitus, hyperlipidemia, hypertension, BPH. ACCU-CHEKS: Before meals and at bedtime. DIET: Regular, diabetic, takes medications whole, ambulates independently. ALLERGIES: Negative. CODE STATUS: Full code. UA: On 01/09/2019 was negative. CURRENT PSYCHOTROPICS: Celexa 40 mg a day, clozapine 200 mg twice a day, Cogentin 2 mg daily, Valium 2 mg t.i.d., Aricept 10 mg a day, Haldol p.r.n., lithium level was significantly subtherapeutic on 300 mg at bedtime and increased to 300 mg twice a day. Check CBC, CMP, lithium level in 3 days, trazodone 100 mg at bedtime. He is on medroxyprogesterone 5 mg b.i.d. FAMILY HISTORY: Noncontributory. SOCIAL HISTORY: No alcohol, drug abuse, physical, sexual or elder abuse history is noted. Not known to be a perpetrator. REACTION TO HOSPITALIZATION: The patient accepting of it. ASSETS: Supportive living at the facility, public marketing administrator guardian. MENTAL STATUS EXAMINATION: The patient was seen individually in the evening of 01/11/2019. He is oriented to himself and situation, somewhat withdrawn. Speech has some latency, often responses monosyllabic. Abstraction fair, computation impaired, language function intact. He is somewhat paranoid. No active suicidal or homicidal ideation. LABORATORY DATA: Reviewed. IMPRESSION: Schizoaffective disorder, bipolar type, mixed with psychotic features; anxiety disorder, unspecified; impulse control disorder, unspecified; history of major depressive disorder. Rest unchanged from above. PLAN: Admit to geropsychiatry unit at [facility]. I will see the patient daily individually from a psychiatric standpoint. Medical followup with Dr. Vera. Increase clozapine from 200 b.i.d. to 200 a.m., 225 at bedtime. Check weekly CBC, absolute neutrophil count. Increase lithium carbonate from 300 mg a day to 300 mg twice a day. Check CBC, CMP, lithium level in 3 days. Rest unchanged for now and we will gradually reduce his Valium and perhaps the Cogentin. ESTIMATED LENGTH OF STAY: 10-12 days. DISPOSITION: Plans back to senior living when stable. MAN Alan BEST MD DR: MARRY/merced JOB#: [id number] / [id number]
--- NOTE | 2019-01-13 22:13 | NUR ---
Nursing note: Assumed care of pt in the day room. He was sitting alone and ready to go back to his room. He is compliant with meds and assessment but not very interactive. He has no behaviors and no c/o pain at this time.
[2019-01-14 06:12] VITALS: BP 145/91
[2019-01-14] MEDS: LEVOTHYROXINE 100 MCG TABLET PO SCH (06:21)
[2019-01-14 07:24] LABS: BASO % 0 % (0-3); EOS % 0 % (0-3); HEMATOCRIT 41.6 % (39.0-53.0); HEMOGLOBIN 13.6 g/dL (13.0-17.5); LYMPH # 2.1 x10^3/uL (1.0-4.8); LYMPH % 26 % (24-48); MEAN CORPUSCULAR HEMOGLOBIN 29 pg (25-35); MEAN CORPUSCULAR HGB CONC 33 g/dL (31-37); MEAN CORPUSCULAR VOLUME 89 fL (79-100); MONO # 0.6 x10^3/uL (0.0-1.1); MONO % 8 % (0-9); NEUT # 5.4 x10^3uL (1.8-7.7); NEUT % 66 % (31-73); PLATELET COUNT 239 x10^3/uL (140-400); RED BLOOD COUNT 4.66 x10^6/uL (4.30-5.70); RED CELL DISTRIBUTION WIDTH 13.3 % (11.5-14.5); WHITE BLOOD COUNT 8.1 x10^3/uL (4.0-11.0)
[2019-01-14 07:43] LABS: ALBUMIN 3.1 g/dL (3.4-5.0); ALBUMIN/GLOBULIN RATIO 0.8 (1.0-1.7); CALCIUM 9.6 mg/dL (8.5-10.1); CREATININE 1.3 mg/dL (0.7-1.3); GFR 56.1; POTASSIUM 4.4 mmol/L (3.5-5.1); TOTAL BILIRUBIN 0.5 mg/dL (0.2-1.0); TOTAL PROTEIN 6.9 g/dL (6.4-8.2)
[2019-01-14] MEDS: MEGESTROL 400 MG/10 ML ORAL.SUSP. PO SCH ×2 (08:30→21:00)
[2019-01-14] MEDS: LUBIPROSTONE 24 MCG CAPSULE PO SCH ×2 (08:31→17:30)
[2019-01-14] MEDS: BENZTROPINE MESYLATE 1 MG TABLET PO SCH ×2 (08:32→21:00)
[2019-01-14] MEDS: PANTOPRAZOLE 40 MG TABLET. PO SCH (08:32)
[2019-01-14] MEDS: LITHIUM CARBONATE 300 MG TABLET PO SCH ×2 (08:32→21:00)
[2019-01-14] MEDS: diazePAM 2 MG TABLET PO SCH ×3 (08:32→21:00)
[2019-01-14] MEDS: METOPROLOL SUCC 24HR ER 25 MG TAB.ER.24H. PO SCH (08:32)
[2019-01-14] MEDS: glipiZIDE ER 2.5 MG TAB.ER.24 PO SCH (08:32)
[2019-01-14] MEDS: cloZAPine 100 MG TABLET PO SCH ×2 (08:33→21:00)
[2019-01-14] MEDS: CITALOPRAM 20 MG TABLET. PO SCH (08:33)
--- NOTE | 2019-01-14 09:40 | NUR ---
ACTIVITY THERAPY ASSESSMENT Completed based on observation and interview. Pt. was laying in the supine position, in the secure hallway. He sat up and was initially willing to speak with GLOBAL MARKETING OPERATIONS MANAGER; however, had difficulty focusing and staying on topic and towards the end, he refused to answer any questions on leisure interest. He quickly explained he was in anguish, extreme anguish and that he was unable to cope. He thought he was going to or said he wish he had. He said he has felt this way for a very long time. He thought a nervous breakdown or a stroke could have started this and said prune juice was the only thing that seemed to help. He said he does take medication and takes whatever is asked of him. He wants to lay in his bed and thinks staff wants to kill or hurt him if they do not let him lay down. He was distressed, appear to be slightly trembling with a tense body. When asked about leisure interest/ hobbies, Pt. replied I am not required to answer that, then he laid in a supine position on the floor again, with his eyes closed. GLOBAL MARKETING OPERATIONS MANAGER asked if he was done talking and he said I think so. Initial goal aimed to increase relaxation techniques and leisure engagement: Pt. will participate in at least five individual or Activity Therapy groups before discharge. Addendum: 01/26/19 at 1230 by [employer] ACT Goal changed 01/24: Pt. will participate in at least one individual Activity Therapy group before discharge. Addendum: 02/16/19 at 0923 by FOREIGN SNOWDEN ACT Goal changed 02/15: Pt. will participate in at least one Activity Therapy group or individual session per week
--- NOTE | 2019-01-14 11:52 | NUR ---
Nursing note: Pt in dining room for morning meds and assessment. He was compliant with taking his meds whole and was cooperative with his assessment. Pt denied having any pain. Pt has been withdrawn to himself and walking the hallways this morning. Will continue to monitor.
--- NOTE | 2019-01-14 12:30 | NUR ---
SIMI spoke to Elizabeth Henderson, Public Wool Carder Batch Mixing Truck Driver, to let her know pt. had arrived on the unit, as notification was requested.
--- NOTE | 2019-01-14 15:30 | NUR ---
SIMI spoke with Elizabeth, the case picker through the PA office to gather information for pt PSA. Elizabeth reports that pt at this time is to return to placement and encouraged SW to contact placement to find out more information that may pertain to what they are seeing with pt at placement. SW to complete PSA with the information and keep Elizabeth up to date.
[2019-01-14 15:54] VITALS: BP 130/84
--- NOTE | 2019-01-14 15:55 | NUR ---
PSYCHOSOCIAL ASSESSMENT ADMISSION DATE: 01/10/19 CONTACT INFORMATION: DPOA/Guardian Contact Name: Elizabeth LuoKassie (Public Reel Worker) Contact Address: [place], [place] Contact Phone #: ETHNIC ORIGIN: REASONS FOR ADMISSION: Agitated Combative Poor impulse control Suspicious/paranoid Other ADDITIONAL ADMISSION COMMENTS: According to the intake, pt has increased paranoia, not eating or taking medications since 01/02, pacing, insomnia, combative towards staff, agitated and isolative. REASON FOR ADMISSION IN PATIENT/FAMILY'S OWN WORDS: Pt has been having an increase in paranoia, which is just an increase in behaviors for him. Non-compliant with medications. PATIENT/FAMILY EXPECTATIONS FOR ADMISSION: Medication and Behavioral Management LIVING SITUATION: Patient lives with: [facility] Other living arrangements: Contact Name: Grand Mullen Contact Address: [address] [place] [address]; [place] [address] Contact Phone #: Contact Fax #: FAMILY RELATIONS: Marital Status: Single # of Marriages: 1 # of Children: [address] 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 It is unknown if pt is or his has . SIGNIFICANT PSYCHIATRIC/MEDICAL HISTORY: Psychiatric/Treatment History: Pt has been in April 2018 and had some time at [facility] unit. Pt has a hx of Schizoaffective D/O and MDD. Pertinent Family History: Public Reel Worker is not sure at this time. HISTORICAL DATA: Childhood Environment: Other-see below Childhood Environment Additional Comments: Pt mother originally had guardianship of pt until she in June 2017. Pt father is still living at the age of 89 at [facility] in [place], [place]. Psychological Abuse: None Additional Comments: None that the public aix system administrator office is aware of. Drug Abuse History last 12 months: No Comment: PERSONAL HISTORY: Vocational history: Pt manly held positions in the . Once discharged, pt was not able to hold down a job with his diagnosis. While in the [employer], pt received enough education and is considered to have his associates. 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 service: Y [employer] Christian background: N/a Sexual orientation: Heterosexual Educational Level: Associates Past/Present Interests/Hobbies: N/A Financial support/resources: Social Security SS Disability Monthly income: Person handling finances: Pt has a conservator provided by the state Do you have a history of legal problems: N Cultural considerations: None SOCIAL RELATIONSHIPS-CURRENT/PAST: Psychiatrist: Dr. Asif PCP: Dr. Bergeron Counselor/Therapist: [facility]: Support Group: General Milling Superintendent/Mixing Tank Operator: Other relationships: STRENGTHS & WEAKNESSES: Patient's strengths: Good verbal skills Ambulatory Other patient strengths: Patient's weaknesses: Poor family support Impulsive Poor social skills Other patient weaknesses: PRELIMINARY PLAN OF TREATMENT: Preliminary plan: Dec. Hallucination/Delus Promote Coping Skill Medication Stabilization Other preliminary treatment comments: DISCHARGE PLANNING: Discharge planning/disposition: Current Living Arrange. Additional discharge needs identified: Pt to return to [facility] once stable. ADDITIONAL INFORMATION: Other Pertinent Data: All information from PSA was gathered by pt Public Reel Worker. SW will continue to keep her up to date over pt stay.
--- NOTE | 2019-01-14 18:37 | PN ---
DATE: 01/12/2019 PSYCHIATRIC PROGRESS NOTE This late entry 01/12/2019 covers elements not covered in my initial note. SUBJECTIVE: I met with the patient in the evening. The patient slept 8-1/4 hours previous night. He remains somewhat withdrawn, isolative, paranoid. REVIEW OF SYSTEMS: No CV, , pulmonary, eye system symptoms on review, met with him in his room. MENTAL STATUS EXAM: Oriented to himself and situation. Speech moderate latency, often responses monosyllabic. Abstraction fair, computation impaired, language function intact. Mood and affect withdrawn. LABORATORY DATA: Reviewed. IMPRESSION: Unchanged from initial note. PLAN: No change from initial note. MAN Alan BEST MD DR: MARRY/merced JOB#: [id number] / [id number]
--- NOTE | 2019-01-14 19:02 | PN ---
DATE: 01/13/2019 PSYCHIATRIC PROGRESS NOTE This late entry, 01/13/2019, covers the elements not covered in my initial note. SUBJECTIVE: I met with the patient in the evening. The patient slept 9-1/4 hours previous night. He is pleasant, somewhat withdrawn, compliant with medications, spends much time in his bed and I addressed this with him. He is still paranoid. REVIEW OF SYSTEMS: No CV, , pulmonary, or eye system symptoms on review. MENTAL STATUS EXAM: Oriented to himself and situation. Speech, moderate latency, often responses monosyllabic. Abstraction fair, computation impaired, language function intact, and attention span short. Mood and affect withdrawn, less paranoid. LABORATORY DATA: Reviewed. IMPRESSION: Unchanged from initial note. PLAN: No change from initial note. Clozapine has been increased. [place] is being adjusted. We will repeat CBC, ANC Monday and may increase Clozaril further. MAN Alan BEST MD DR: MARRY/merced JOB#: [id number] / [id number]
--- NOTE | 2019-01-14 19:53 | PDOC ---
Exam Note: Vincent Note: Please also refer to the separate dictated note~for this date of service dictated separately.~Patient seen individually. Discussed the patient with Nursing staff reviewed the chart.~Reviewed interim history and current functioning. Reviewed vital signs,~Labs/ Radiology~and current medications noted below. Continue current treatment with the changes noted in the dictated addendum note Assessment: Vital Signs/I&O: Vital Signs Date Time Temp Pulse Resp B/P (MAP) Pulse Ox O2 Delivery O2 Flow Rate FiO2 01/14/19 15:54 98.2 96 18 130/84 (99) 98 01/14/19 06:12 Room Air I & O 01/13/19 01/13/19 01/14/19 14:59 22:59 06:59 Intake Total 1080 ml 480 ml Balance 1080 ml 480 ml Labs: Laboratory Tests Test 01/14/19 06:50 01/14/19 07:20 White Blood Count 8.1 x10^3/uL (4.0-11.0) Red Blood Count 4.66 x10^6/uL (4.30-5.70) Hemoglobin 13.6 g/dL (13.0-17.5) Hematocrit 41.6 % (39.0-53.0) Mean Corpuscular Volume 89 fL (79-100) Mean Corpuscular Hemoglobin 29 pg (25-35) Mean Corpuscular Hemoglobin Concent 33 g/dL (31-37) Red Cell Distribution Width 13.3 % (11.5-14.5) Platelet Count 239 x10^3/uL (140-400) Neutrophils (%) (Auto) 66 % (31-73) Lymphocytes (%) (Auto) 26 % (24-48) Monocytes (%) (Auto) 8 % (0-9) Eosinophils (%) (Auto) 0 % (0-3) Basophils (%) (Auto) 0 % (0-3) Neutrophils # (Auto) 5.4 x10^3uL (1.8-7.7) Lymphocytes # (Auto) 2.1 x10^3/uL (1.0-4.8) Monocytes # (Auto) 0.6 x10^3/uL (0.0-1.1) Eosinophils # (Auto) 0.0 x10^3/uL (0.0-0.7) Basophils # (Auto) 0.0 x10^3/uL (0.0-0.2) Sodium Level 147 mmol/L (136-145) H Potassium Level 4.4 mmol/L (3.5-5.1) Chloride Level 110 mmol/L (98-107) H Carbon Dioxide Level 28 mmol/L (21-32) Anion Gap 9 (6-14) Blood Urea Nitrogen 17 mg/dL (8-26) Creatinine 1.3 mg/dL (0.7-1.3) Estimated GFR (Cockcroft-Gault) 56.1 BUN/Creatinine Ratio 13 (6-20) Glucose Level 162 mg/dL (70-99) H Calcium Level 9.6 mg/dL (8.5-10.1) Total Bilirubin 0.5 mg/dL (0.2-1.0) Aspartate Amino Transferase (AST) 21 U/L (15-37) Alanine Aminotransferase (ALT) 44 U/L (16-63) Alkaline Phosphatase 74 U/L (46-116) Total Protein 6.9 g/dL (6.4-8.2) Albumin 3.1 g/dL (3.4-5.0) L Albumin/Globulin Ratio 0.8 (1.0-1.7) L Glucose (Fingerstick) 172 mg/dL (70-99) H Current Medications: Meds: Current Medications Medications (Trade) Dose Ordered Sig/Snana Route PRN Reason Start Time Stop Time Status Last Admin Dose Admin Clozapine (Clozaril) 25 mg HS PO 01/13/19 21:00 01/13/19 19:54 Clozapine (Clozaril) 200 mg QHS PO 01/13/19 21:00 01/13/19 19:52 I have reviewed the current psychotropics carefully including drug interactions. Risk benefit ratio favors no change other than as noted in my dictated progress note. Diagnosis: Problems: (1) Anxiety disorder (2) Schizoaffective disorder, chronic condition with acute exacerbation (3) Impulse control disorder KUNAL BEST MD Jan 14, 2019 19:53
[2019-01-14] MEDS: SIMVASTATIN 20 MG TABLET PO SCH (21:00)
[2019-01-14] MEDS: cloZAPine 25 MG TABLET PO SCH (21:00)
[2019-01-14] MEDS: DONEPEZIL HCL 10 MG TABLET PO SCH (21:00)
[2019-01-14] MEDS: traZODone 100 MG TABLET. PO SCH (21:00)
--- NOTE | 2019-01-14 23:55 | NUR ---
Nursing Note Pt on the mattress in the quiet room with door open. Refuses meds and assessments. When I inquired about his day and how he was doing he responds "I was fine till you woke me, now get the hell out and leave me alone." Pt refused meds and assessments and is asleep on the floor.
[2019-01-15] MEDS: LEVOTHYROXINE 100 MCG TABLET PO SCH (05:58)
[2019-01-15 06:24] VITALS: BP 150/84
[2019-01-15] MEDS: MEGESTROL 400 MG/10 ML ORAL.SUSP. PO SCH ×2 (08:06→20:47)
[2019-01-15] MEDS: cloZAPine 100 MG TABLET PO SCH ×2 (08:06→20:48)
[2019-01-15] MEDS: LITHIUM CARBONATE 300 MG TABLET PO SCH ×2 (08:07→20:49)
[2019-01-15] MEDS: PANTOPRAZOLE 40 MG TABLET. PO SCH (08:07)
[2019-01-15] MEDS: BENZTROPINE MESYLATE 1 MG TABLET PO SCH ×2 (08:07→20:49)
[2019-01-15] MEDS: CITALOPRAM 20 MG TABLET. PO SCH (08:07)
[2019-01-15] MEDS: glipiZIDE ER 2.5 MG TAB.ER.24 PO SCH (08:07)
[2019-01-15] MEDS: cloZAPine 25 MG TABLET PO SCH ×2 (08:08→20:48)
[2019-01-15] MEDS: LUBIPROSTONE 24 MCG CAPSULE PO SCH ×2 (08:08→17:11)
[2019-01-15] MEDS: diazePAM 2 MG TABLET PO SCH ×3 (08:08→20:49)
[2019-01-15] MEDS: METOPROLOL SUCC 24HR ER 25 MG TAB.ER.24H. PO SCH (08:08)
--- NOTE | 2019-01-15 11:44 | NUR ---
Nursing note: Pt was in dining room for his morning meds and assessment. He was compliant with taking his meds whole and was cooperative with his assessment. He stated he is depressed because "I have no autonomy and I want to rest but I'm not given the chance". As soon as his assessment was finished, he asked to go back to his room because that's where he feels the most comfortable. Pt has been in his room for most of the morning. Will continue to monitor.
--- NOTE | 2019-01-15 12:33 | NUR ---
WEEKLY ACTIVITY THERAPY NOTE Date of Admission: 01/10/2019 Date of AT Assessment: 01/14/2019 Goal aimed: to increase relaxation techniques and leisure engagement Initial goal: Pt. will participate in at least five individual or Activity Therapy groups before discharge. Weekly progress towards goal: on track, 0/5 Group participation level: zero Weekly highlights: expressed he liked one song that was playing in group Behaviors observed: negative attitude/tone/affect, wants to lay down in bed, thinks staff wants to kill him or for him to , reports inability to cope Plan: no change to goal Beneficial adaptations: TBD
[2019-01-15 16:10] VITALS: BP 129/80
--- NOTE | 2019-01-15 19:56 | PDOC ---
Exam Note: Vincent Note: Please also refer to the separate dictated note~for this date of service dictated separately.~Patient seen individually. Discussed the patient with Nursing staff reviewed the chart.~Reviewed interim history and current functioning. Reviewed vital signs,~Labs/ Radiology~and current medications noted below. Continue current treatment with the changes noted in the dictated addendum note Assessment: Vital Signs/I&O: Vital Signs Date Time Temp Pulse Resp B/P (MAP) Pulse Ox O2 Delivery O2 Flow Rate FiO2 01/15/19 16:10 99.2 93 20 129/80 (96) 97 Room Air I & O 01/14/19 01/14/19 01/15/19 15:00 23:00 07:00 Intake Total 1080 ml 240 ml 80 ml Balance 1080 ml 240 ml 80 ml Labs: Laboratory Tests Test 01/15/19 08:09 Glucose (Fingerstick) 137 mg/dL (70-99) H Current Medications: Meds: Current Medications Medications (Trade) Dose Ordered Sig/Sanna Route PRN Reason Start Time Stop Time Status Last Admin Dose Admin Clozapine (Clozaril) 200 mg DAILY PO 01/15/19 09:00 01/15/19 08:06 Clozapine (Clozaril) 25 mg DAILY PO 01/15/19 09:00 01/15/19 08:08 I have reviewed the current psychotropics carefully including drug interactions. Risk benefit ratio favors no change other than as noted in my dictated progress note. Diagnosis: Problems: (1) Anxiety disorder (2) Schizoaffective disorder, chronic condition with acute exacerbation (3) Impulse control disorder (4) Acute kidney injury (5) Rhabdomyolysis KUNAL BEST MD Jan 15, 2019 19:56
[2019-01-15] MEDS: DONEPEZIL HCL 10 MG TABLET PO SCH (20:48)
[2019-01-15] MEDS: traZODone 100 MG TABLET. PO SCH (20:49)
[2019-01-15] MEDS: SIMVASTATIN 20 MG TABLET PO SCH (20:49)
--- NOTE | 2019-01-15 23:48 | PN ---
DATE: 01/14/2019 PSYCHIATRIC PROGRESS NOTE This late entry 01/14/2019 covers the elements not covered in my initial note. SUBJECTIVE: I met with the patient in the evening. Per VIRY Logan, the patient slept 8-1/4 hours previous night. He refused his morning Synthroid, took it later in the morning, wandering, restless, paranoid, absolute neutrophil count is 5346. He is currently on clozapine 200 mg a.m. 225 at bedtime. We will increase to 225 twice a day. REVIEW OF SYSTEMS: No CV, , pulmonary, eye system symptoms on review, somewhat tired. MENTAL STATUS EXAM: Oriented to himself and situation. Speech has some latency, often responses monosyllabic, coherent. Abstraction fair, computation impaired, language function intact, attention span short. Mood and affect somewhat withdrawn. LABORATORY DATA: Reviewed. IMPRESSION: Unchanged from initial note. PLAN: No change from initial note. We will reassess the need for his medroxyprogesterone, which is currently 5 mg b.i.d. MAN Alan BEST MD DR: MARRY/merced JOB#: [id number] / [id number]
--- NOTE | 2019-01-16 01:30 | NUR ---
Pt was in bed at shift change when he was woken up for meds he sat up and took them without difficulty. When talking to pt he did not respond to questions then laid back down in bed.
[2019-01-16] MEDS: LEVOTHYROXINE 100 MCG TABLET PO SCH (06:00)
[2019-01-16 06:20] LABS: BASO % 0 % (0-3); EOS % 0 % (0-3); HEMATOCRIT 41.6 % (39.0-53.0); HEMOGLOBIN 13.8 g/dL (13.0-17.5); LYMPH # 2.1 x10^3/uL (1.0-4.8); LYMPH % 25 % (24-48); MEAN CORPUSCULAR HEMOGLOBIN 30 pg (25-35); MEAN CORPUSCULAR HGB CONC 33 g/dL (31-37); MEAN CORPUSCULAR VOLUME 90 fL (79-100); MONO # 0.6 x10^3/uL (0.0-1.1); MONO % 7 % (0-9); NEUT # 5.9 x10^3uL (1.8-7.7); NEUT % 68 % (31-73); PLATELET COUNT 229 x10^3/uL (140-400); RED BLOOD COUNT 4.63 x10^6/uL (4.30-5.70); RED CELL DISTRIBUTION WIDTH 13.5 % (11.5-14.5); WHITE BLOOD COUNT 8.6 x10^3/uL (4.0-11.0)
[2019-01-16 06:30] LABS: ALBUMIN/GLOBULIN RATIO 0.8 (1.0-1.7); CREATININE 1.3 mg/dL (0.7-1.3); GFR 56.1; TOTAL BILIRUBIN 0.5 mg/dL (0.2-1.0); TOTAL PROTEIN 6.6 g/dL (6.4-8.2)
[2019-01-16 06:36] VITALS: BP 129/62
[2019-01-16] MEDS: LUBIPROSTONE 24 MCG CAPSULE PO SCH ×2 (09:13→16:41)
[2019-01-16] MEDS: MEGESTROL 400 MG/10 ML ORAL.SUSP. PO SCH ×2 (09:14→20:04)
[2019-01-16] MEDS: METOPROLOL SUCC 24HR ER 25 MG TAB.ER.24H. PO SCH (09:14)
[2019-01-16] MEDS: PANTOPRAZOLE 40 MG TABLET. PO SCH (09:14)
[2019-01-16] MEDS: BENZTROPINE MESYLATE 1 MG TABLET PO SCH ×2 (09:14→20:05)
[2019-01-16] MEDS: cloZAPine 25 MG TABLET PO SCH ×2 (09:14→20:04)
[2019-01-16] MEDS: LITHIUM CARBONATE 300 MG TABLET PO SCH ×2 (09:14→20:05)
[2019-01-16] MEDS: glipiZIDE ER 2.5 MG TAB.ER.24 PO SCH (09:15)
[2019-01-16] MEDS: CITALOPRAM 20 MG TABLET. PO SCH (09:15)
[2019-01-16] MEDS: cloZAPine 100 MG TABLET PO SCH ×2 (09:15→20:04)
[2019-01-16] MEDS: diazePAM 2 MG TABLET PO SCH ×3 (09:15→20:05)
[2019-01-16 15:44] VITALS: BP 121/78
--- NOTE | 2019-01-16 19:54 | PDOC ---
Exam Note: Vincent Note: Please also refer to the separate dictated note~for this date of service dictated separately.~Patient seen individually. Discussed the patient with Nursing staff reviewed the chart.~Reviewed interim history and current functioning. Reviewed vital signs,~Labs/ Radiology~and current medications noted below. Continue current treatment with the changes noted in the dictated addendum note Assessment: Vital Signs/I&O: Vital Signs Date Time Temp Pulse Resp B/P (MAP) Pulse Ox O2 Delivery O2 Flow Rate FiO2 01/16/19 15:44 97.8 98 20 121/78 (92) 97 01/15/19 16:10 Room Air I & O 01/15/19 01/15/19 01/16/19 15:00 23:00 07:00 Intake Total 960 ml 480 ml Balance 960 ml 480 ml Labs: Laboratory Tests Test 01/16/19 06:04 01/16/19 07:23 White Blood Count 8.6 x10^3/uL (4.0-11.0) Red Blood Count 4.63 x10^6/uL (4.30-5.70) Hemoglobin 13.8 g/dL (13.0-17.5) Hematocrit 41.6 % (39.0-53.0) Mean Corpuscular Volume 90 fL (79-100) Mean Corpuscular Hemoglobin 30 pg (25-35) Mean Corpuscular Hemoglobin Concent 33 g/dL (31-37) Red Cell Distribution Width 13.5 % (11.5-14.5) Platelet Count 229 x10^3/uL (140-400) Neutrophils (%) (Auto) 68 % (31-73) Lymphocytes (%) (Auto) 25 % (24-48) Monocytes (%) (Auto) 7 % (0-9) Eosinophils (%) (Auto) 0 % (0-3) Basophils (%) (Auto) 0 % (0-3) Neutrophils # (Auto) 5.9 x10^3uL (1.8-7.7) Lymphocytes # (Auto) 2.1 x10^3/uL (1.0-4.8) Monocytes # (Auto) 0.6 x10^3/uL (0.0-1.1) Eosinophils # (Auto) 0.0 x10^3/uL (0.0-0.7) Basophils # (Auto) 0.0 x10^3/uL (0.0-0.2) Sodium Level 144 mmol/L (136-145) Potassium Level 4.0 mmol/L (3.5-5.1) Chloride Level 108 mmol/L (98-107) H Carbon Dioxide Level 27 mmol/L (21-32) Anion Gap 9 (6-14) Blood Urea Nitrogen 22 mg/dL (8-26) Creatinine 1.3 mg/dL (0.7-1.3) Estimated GFR (Cockcroft-Gault) 56.1 BUN/Creatinine Ratio 17 (6-20) Glucose Level 162 mg/dL (70-99) H Calcium Level 9.0 mg/dL (8.5-10.1) Total Bilirubin 0.5 mg/dL (0.2-1.0) Aspartate Amino Transferase (AST) 15 U/L (15-37) Alanine Aminotransferase (ALT) 51 U/L (16-63) Alkaline Phosphatase 71 U/L (46-116) Total Protein 6.6 g/dL (6.4-8.2) Albumin 3.0 g/dL (3.4-5.0) L Albumin/Globulin Ratio 0.8 (1.0-1.7) L [place] Level 0.4 mmol/L (0.6-1.2) L [place] Last Dose Date 01/15/19 [place] Last Dose Time 2100 Glucose (Fingerstick) 140 mg/dL (70-99) H Current Medications: I have reviewed the current psychotropics carefully including drug interactions. Risk benefit ratio favors no change other than as noted in my dictated progress note. Diagnosis: Problems: (1) Anxiety disorder (2) Schizoaffective disorder, chronic condition with acute exacerbation (3) Impulse control disorder KUNAL BEST MD Jan 16, 2019 19:54
[2019-01-16] MEDS: MAGNESIUM HYDROXIDE 2,400 MG/30 ML ORAL.SUSP. PO PRN (20:03)
[2019-01-16] MEDS: traZODone 100 MG TABLET. PO SCH (20:04)
[2019-01-16] MEDS: SIMVASTATIN 20 MG TABLET PO SCH (20:04)
[2019-01-16] MEDS: DONEPEZIL HCL 10 MG TABLET PO SCH (20:04)
--- NOTE | 2019-01-16 21:04 | PN ---
DATE: 01/15/2019 PSYCHIATRIC PROGRESS NOTE This late entry 01/15/2019 covers the elements not covered in my initial note. SUBJECTIVE: I met with the patient in the evening of 01/15/2019 and staffed at a treatment team meeting with the entire team. The patient's appetite is 100%, sleeping about 8-1/2 hours. He spends much time in bed, not compliant with attending activities, using foul language at times, depressed, intermittently psychotic. Reviewed his history at length. It is unclear why he is on medroxyprogesterone and we will help clarify this and stop it if nothing clear is revealed about the reason for him taking it. REVIEW OF SYSTEMS: No CV, , pulmonary, eye system symptoms on review. Reliability varies. MENTAL STATUS EXAM: Oriented to himself and situation. Speech has some latency, coherent, often responses monosyllabic. Abstraction fair, computation impaired, language function intact, attention span short. Mood and affect withdrawn. LABORATORY DATA: Reviewed. IMPRESSION: Unchanged from initial note. PLAN: No change from initial note. We have increased his Clozaril. We will continue to adjust post-labs. He does have a father who is in his 90s and still living. Mother a few years back. KUNAL BEST MD DR: MARRY/merced JOB#: [id number] / [id number]
--- NOTE | 2019-01-16 22:10 | NUR ---
Pt sitting quietly in the day room at shift change. Pt calm, withdrawn to self. Pt cooperative with assessment and medications administered whole. Pt c/o constipation, PRN MOM administered as requested.
[2019-01-17 05:50] VITALS: BP 125/85
[2019-01-17] MEDS: LEVOTHYROXINE 100 MCG TABLET PO SCH (05:50)
[2019-01-17] MEDS: LITHIUM CARBONATE 300 MG TABLET PO SCH ×2 (08:13→19:39)
[2019-01-17] MEDS: MEGESTROL 400 MG/10 ML ORAL.SUSP. PO SCH ×2 (08:13→19:39)
[2019-01-17] MEDS: diazePAM 2 MG TABLET PO SCH ×3 (08:14→19:38)
[2019-01-17] MEDS: cloZAPine 100 MG TABLET PO SCH ×2 (08:14→19:39)
[2019-01-17] MEDS: PANTOPRAZOLE 40 MG TABLET. PO SCH (08:14)
[2019-01-17] MEDS: METOPROLOL SUCC 24HR ER 25 MG TAB.ER.24H. PO SCH (08:14)
[2019-01-17] MEDS: BENZTROPINE MESYLATE 1 MG TABLET PO SCH ×2 (08:14→19:39)
[2019-01-17] MEDS: cloZAPine 25 MG TABLET PO SCH ×2 (08:14→19:39)
[2019-01-17] MEDS: CITALOPRAM 20 MG TABLET. PO SCH (08:15)
[2019-01-17] MEDS: LUBIPROSTONE 24 MCG CAPSULE PO SCH ×2 (08:15→17:14)
[2019-01-17] MEDS: glipiZIDE ER 2.5 MG TAB.ER.24 PO SCH (08:15)
--- NOTE | 2019-01-17 11:06 | PN ---
DATE: 01/17/2019 PSYCHIATRIC PROGRESS NOTE This note covers elements not covered in my initial note of 01/17/2019. SUBJECTIVE: I met with the patient in the morning. The patient slept 7 hours previous night. He remains somewhat withdrawn, paranoid, isolative, but not aggressive. REVIEW OF SYSTEMS: No CV, , pulmonary, eye system symptoms on review. MENTAL STATUS EXAM: Reasonably oriented. Speech is moderate latency, often responses monosyllabic. Abstraction fair, computation impaired, language function intact. Mood and affect withdrawn. LABORATORY DATA: Reviewed. IMPRESSION: Unchanged from initial note. PLAN: No change from initial note. MAN Alan BEST MD DR: MARRY/merced JOB#: [id number] / [id number]
--- NOTE | 2019-01-17 11:06 | PN ---
DATE: 01/16/2019 PSYCHIATRIC PROGRESS NOTE This late entry 01/16/2019 covers elements not covered in my initial note. SUBJECTIVE Per nursing report, the patient slept 9-1/2 hours previous night. He has been isolative, withdrawn, still paranoid, comes out to the day room at times. At times, sits in the hallway. [place] level is 0.4 This is currently on 300 mg b.i.d. of lithium. REVIEW OF SYSTEMS: No CV, , pulmonary, eye system symptoms on review. MENTAL STATUS EXAM: Reasonably oriented to himself and situation. Speech moderate latency, often responses monosyllabic. Abstraction fair, computation impaired, language function intact. Mood and affect withdrawn. LABORATORY DATA: Reviewed. IMPRESSION: Schizoaffective disorder, bipolar type, mixed with psychotic features. Rest unchanged. PLAN: Increase lithium from 300 b.i.d. to 450 b.i.d. Check CBC, CMP, lithium level in 3 days. Rest unchanged. May consider tapering the Valium at some stage and gradually increase the clozapine which is currently 225 mg b.i.d. Maintain Celexa 40 mg a day, unclear on the need for medroxyprogesterone with no sexually inappropriate behaviors noted. Continue trazodone 100 mg at bedtime. MAN Alan BEST MD DR: MARRY/merced JOB#: [id number] / [id number]
--- NOTE | 2019-01-17 11:40 | NUR ---
Nursing note: Pt in dining room for morning meds and assessment. He was compliant with taking his meds whole and was cooperative with his assessment, but preoccupied about when he was able to go back to his room. He continues to state he is feeling depressed, but he did mention being able to sleep better. Pt is withdrawn to self in his room for most of the morning. He is currently sitting in the [place]ott. Will continue to monitor.
[2019-01-17 16:16] VITALS: BP 120/75
[2019-01-17] MEDS: DONEPEZIL HCL 10 MG TABLET PO SCH (19:38)
[2019-01-17] MEDS: traZODone 100 MG TABLET. PO SCH (19:38)
[2019-01-17] MEDS: SIMVASTATIN 20 MG TABLET PO SCH (19:38)
--- NOTE | 2019-01-17 20:40 | PDOC ---
Exam Note: Vincent Note: Please also refer to the separate dictated note~for this date of service dictated separately.~Patient seen individually. Discussed the patient with Nursing staff reviewed the chart.~Reviewed interim history and current functioning. Reviewed vital signs,~Labs/ Radiology~and current medications noted below. Continue current treatment with the changes noted in the dictated addendum note Assessment: Vital Signs/I&O: Vital Signs Date Time Temp Pulse Resp B/P (MAP) Pulse Ox O2 Delivery O2 Flow Rate FiO2 01/17/19 16:16 97.8 100 18 120/75 (90) 97 01/15/19 16:10 Room Air I & O 01/16/19 01/16/19 01/17/19 15:00 23:00 07:00 Intake Total 960 ml 720 ml Balance 960 ml 720 ml Labs: Laboratory Tests Test 01/17/19 07:58 Glucose (Fingerstick) 152 mg/dL (70-99) H Current Medications: Meds: Current Medications Medications (Trade) Dose Ordered Sig/Sanna Route PRN Reason Start Time Stop Time Status Last Admin Dose Admin Golinda Carbonate 450 mg BID PO 01/16/19 21:00 01/17/19 19:39 I have reviewed the current psychotropics carefully including drug interactions. Risk benefit ratio favors no change other than as noted in my dictated progress note. Diagnosis: Problems: (1) Anxiety disorder (2) Schizoaffective disorder, chronic condition with acute exacerbation (3) Impulse control disorder KUNAL BEST MD Jan 17, 2019 20:40
[2019-01-18] MEDS: LEVOTHYROXINE 100 MCG TABLET PO SCH (06:01)
[2019-01-18 06:30] VITALS: BP 124/86
[2019-01-18] MEDS: BENZTROPINE MESYLATE 1 MG TABLET PO SCH ×2 (08:23→19:46)
[2019-01-18] MEDS: LUBIPROSTONE 24 MCG CAPSULE PO SCH ×2 (08:23→17:13)
[2019-01-18] MEDS: MEGESTROL 400 MG/10 ML ORAL.SUSP. PO SCH ×2 (08:23→19:44)
[2019-01-18] MEDS: cloZAPine 25 MG TABLET PO SCH ×2 (08:23→19:45)
[2019-01-18] MEDS: cloZAPine 100 MG TABLET PO SCH ×2 (08:23→19:45)
[2019-01-18] MEDS: PANTOPRAZOLE 40 MG TABLET. PO SCH (08:23)
[2019-01-18] MEDS: METOPROLOL SUCC 24HR ER 25 MG TAB.ER.24H. PO SCH (08:24)
[2019-01-18] MEDS: LITHIUM CARBONATE 300 MG TABLET PO SCH ×2 (08:25→19:45)
[2019-01-18] MEDS: CITALOPRAM 20 MG TABLET. PO SCH (08:26)
[2019-01-18] MEDS: diazePAM 2 MG TABLET PO SCH ×3 (08:26→19:46)
[2019-01-18] MEDS: glipiZIDE ER 2.5 MG TAB.ER.24 PO SCH (08:31)
--- NOTE | 2019-01-18 11:06 | NUR ---
Patient attempted to leave dining room and go to bed before taking his morning medications. Patient returned when asked to and was compliant with his medications. Patient withdrawn to room most of the morning and is laying in his bed. He stated he "feels depressed" when asked but does not want to participate in any groups or activities when invited by staff. Patient has a fast gait and slipped in the bathroom while "running" from his bed to the toilet. L. Forearm has abrasion but skin is not open, patient denied pain/injury when asked. No other injuries apparent at this time. Patient denied urgency with urination and diarrhea when asked. Nurse cautioned patient to slow down and stop running.
[2019-01-18 15:36] VITALS: BP 122/81
[2019-01-18] MEDS: DONEPEZIL HCL 10 MG TABLET PO SCH (19:45)
[2019-01-18] MEDS: traZODone 100 MG TABLET. PO SCH (19:46)
[2019-01-18] MEDS: SIMVASTATIN 20 MG TABLET PO SCH (19:46)
--- NOTE | 2019-01-18 20:07 | PDOC ---
Exam Note: Vincent Note: Please also refer to the separate dictated note~for this date of service dictated separately.~Patient seen individually. Discussed the patient with Nursing staff reviewed the chart.~Reviewed interim history and current functioning. Reviewed vital signs,~Labs/ Radiology~and current medications noted below. Continue current treatment with the changes noted in the dictated addendum note Assessment: Vital Signs/I&O: Vital Signs Date Time Temp Pulse Resp B/P (MAP) Pulse Ox O2 Delivery O2 Flow Rate FiO2 01/18/19 15:36 98.9 100 16 122/81 (95) 99 01/15/19 16:10 Room Air I & O 01/17/19 01/17/19 01/18/19 14:59 22:59 06:59 Intake Total 720 ml 1080 ml Balance 720 ml 1080 ml Labs: Laboratory Tests Test 01/18/19 07:45 Glucose (Fingerstick) 160 mg/dL (70-99) H Current Medications: Meds: Current Medications Medications (Trade) Dose Ordered Sig/Sanna Route PRN Reason Start Time Stop Time Status Last Admin Dose Admin Diazepam (Valium) 2 mg BID PO 01/18/19 21:00 01/20/19 23:00 01/18/19 19:46 I have reviewed the current psychotropics carefully including drug interactions. Risk benefit ratio favors no change other than as noted in my dictated progress note. Diagnosis: Problems: (1) Anxiety disorder (2) Schizoaffective disorder, chronic condition with acute exacerbation (3) Impulse control disorder KUNAL BEST MD Jan 18, 2019 20:07
--- NOTE | 2019-01-18 22:45 | NUR ---
Pt took meds without difficulty he is more alert and interactive tonight. No behaviors tonight.
[2019-01-19] MEDS: LEVOTHYROXINE 100 MCG TABLET PO SCH (05:25)
[2019-01-19 06:13] VITALS: BP 114/94
[2019-01-19 06:50] LABS: BASO % 0 % (0-3); EOS % 0 % (0-3); HEMATOCRIT 41.3 % (39.0-53.0); HEMOGLOBIN 13.6 g/dL (13.0-17.5); LYMPH # 2.1 x10^3/uL (1.0-4.8); LYMPH % 18 % (24-48); MEAN CORPUSCULAR HEMOGLOBIN 30 pg (25-35); MEAN CORPUSCULAR HGB CONC 33 g/dL (31-37); MEAN CORPUSCULAR VOLUME 90 fL (79-100); MONO # 0.9 x10^3/uL (0.0-1.1); MONO % 8 % (0-9); NEUT # 8.6 x10^3uL (1.8-7.7); NEUT % 74 % (31-73); PLATELET COUNT 213 x10^3/uL (140-400); RED BLOOD COUNT 4.61 x10^6/uL (4.30-5.70); WHITE BLOOD COUNT 11.6 x10^3/uL (4.0-11.0)
[2019-01-19 06:55] LABS: ALBUMIN 3.3 g/dL (3.4-5.0); CALCIUM 9.4 mg/dL (8.5-10.1); CREATININE 1.4 mg/dL (0.7-1.3); GFR 51.5; POTASSIUM 4.3 mmol/L (3.5-5.1); TOTAL BILIRUBIN 0.5 mg/dL (0.2-1.0); TOTAL PROTEIN 6.6 g/dL (6.4-8.2)
[2019-01-19] MEDS: PANTOPRAZOLE 40 MG TABLET. PO SCH (07:30)
[2019-01-19] MEDS: LUBIPROSTONE 24 MCG CAPSULE PO SCH ×2 (09:24→17:09)
[2019-01-19] MEDS: LITHIUM CARBONATE 300 MG TABLET PO SCH ×2 (09:25→20:21)
[2019-01-19] MEDS: METOPROLOL SUCC 24HR ER 25 MG TAB.ER.24H. PO SCH (09:25)
[2019-01-19] MEDS: BENZTROPINE MESYLATE 1 MG TABLET PO SCH ×2 (09:25→20:21)
[2019-01-19] MEDS: CHOLECALCIFEROL (VITAMIN D3) 50,000 UNIT CAPSULE PO SCH (09:26)
[2019-01-19] MEDS: cloZAPine 100 MG TABLET PO SCH ×2 (09:26→20:21)
[2019-01-19] MEDS: glipiZIDE ER 2.5 MG TAB.ER.24 PO SCH (09:26)
[2019-01-19] MEDS: cloZAPine 25 MG TABLET PO SCH ×2 (09:26→20:21)
[2019-01-19] MEDS: diazePAM 2 MG TABLET PO SCH ×2 (09:26→20:21)
[2019-01-19] MEDS: CITALOPRAM 20 MG TABLET. PO SCH (09:26)
[2019-01-19] MEDS: MEGESTROL 400 MG/10 ML ORAL.SUSP. PO SCH ×2 (09:27→20:21)
--- NOTE | 2019-01-19 13:11 | NUR ---
Had been highly encouraged by staff to remain out of his room this morning, he then lied down in quiet room, with morning medication pass, reported feeling quite anxious and did not want to interact with anyone. Hand tremors severe, unable to hold drink without spilling with both hands. During lunch meal, got up and sat at another pt's tray and began eating it, has done before. No impulse control for waiting until he is served. Requesting water frequently. Took a.m. meds with prune juice. No agitated behaviors observed. Denies pain. No delusional behavior noted today. Is compliant with all medications whole.
[2019-01-19 15:51] VITALS: BP 106/70
[2019-01-19] MEDS: traZODone 100 MG TABLET. PO SCH (20:21)
[2019-01-19] MEDS: SIMVASTATIN 20 MG TABLET PO SCH (20:21)
[2019-01-19] MEDS: DONEPEZIL HCL 10 MG TABLET PO SCH (20:22)
--- NOTE | 2019-01-19 21:56 | PDOC ---
Exam Note: Vincent Note: Please also refer to the separate dictated note~for this date of service dictated separately.~Patient seen individually. Discussed the patient with Nursing staff reviewed the chart.~Reviewed interim history and current functioning. Reviewed vital signs,~Labs/ Radiology~and current medications noted below. Continue current treatment with the changes noted in the dictated addendum note Assessment: Vital Signs/I&O: Vital Signs Date Time Temp Pulse Resp B/P (MAP) Pulse Ox O2 Delivery O2 Flow Rate FiO2 01/19/19 15:51 98.4 104 18 106/70 (82) 98 01/15/19 16:10 Room Air I & O 01/18/19 01/18/19 01/19/19 15:00 23:00 07:00 Intake Total 1040 ml 480 ml 240 ml Balance 1040 ml 480 ml 240 ml Labs: Laboratory Tests Test 01/19/19 06:32 01/19/19 07:20 White Blood Count 11.6 x10^3/uL (4.0-11.0) H Red Blood Count 4.61 x10^6/uL (4.30-5.70) Hemoglobin 13.6 g/dL (13.0-17.5) Hematocrit 41.3 % (39.0-53.0) Mean Corpuscular Volume 90 fL (79-100) Mean Corpuscular Hemoglobin 30 pg (25-35) Mean Corpuscular Hemoglobin Concent 33 g/dL (31-37) Red Cell Distribution Width 14.0 % (11.5-14.5) Platelet Count 213 x10^3/uL (140-400) Neutrophils (%) (Auto) 74 % (31-73) H Lymphocytes (%) (Auto) 18 % (24-48) L Monocytes (%) (Auto) 8 % (0-9) Eosinophils (%) (Auto) 0 % (0-3) Basophils (%) (Auto) 0 % (0-3) Neutrophils # (Auto) 8.6 x10^3uL (1.8-7.7) H Lymphocytes # (Auto) 2.1 x10^3/uL (1.0-4.8) Monocytes # (Auto) 0.9 x10^3/uL (0.0-1.1) Eosinophils # (Auto) 0.0 x10^3/uL (0.0-0.7) Basophils # (Auto) 0.0 x10^3/uL (0.0-0.2) Sodium Level 145 mmol/L (136-145) Potassium Level 4.3 mmol/L (3.5-5.1) Chloride Level 109 mmol/L (98-107) H Carbon Dioxide Level 28 mmol/L (21-32) Anion Gap 8 (6-14) Blood Urea Nitrogen 22 mg/dL (8-26) Creatinine 1.4 mg/dL (0.7-1.3) H Estimated GFR (Cockcroft-Gault) 51.5 BUN/Creatinine Ratio 16 (6-20) Glucose Level 216 mg/dL (70-99) H Calcium Level 9.4 mg/dL (8.5-10.1) Total Bilirubin 0.5 mg/dL (0.2-1.0) Aspartate Amino Transferase (AST) 14 U/L (15-37) L Alanine Aminotransferase (ALT) 54 U/L (16-63) Alkaline Phosphatase 80 U/L (46-116) Total Protein 6.6 g/dL (6.4-8.2) Albumin 3.3 g/dL (3.4-5.0) L Albumin/Globulin Ratio 1.0 (1.0-1.7) [place] Level 0.7 mmol/L (0.6-1.2) [place] Last Dose Date 01/18/19 [place] Last Dose Time 2100 Glucose (Fingerstick) 256 mg/dL (70-99) H Current Medications: I have reviewed the current psychotropics carefully including drug interactions. Risk benefit ratio favors no change other than as noted in my dictated progress note. Diagnosis: Problems: (1) Anxiety disorder (2) Schizoaffective disorder, chronic condition with acute exacerbation (3) Impulse control disorder (4) Acute kidney injury (5) Rhabdomyolysis KUNAL BEST MD Jan 19, 2019 21:56
--- NOTE | 2019-01-19 23:34 | NUR ---
Pt located in his room all evening. Pt A/O and pleasant. Compliant with whole medications. Declined HS snack. Pt cooperative and thanked nurse for being kind.
[2019-01-20] MEDS: LEVOTHYROXINE 100 MCG TABLET PO SCH (05:19)
[2019-01-20 06:00] VITALS: BP 146/82
[2019-01-20] MEDS: CITALOPRAM 20 MG TABLET. PO SCH (08:05)
[2019-01-20] MEDS: LITHIUM CARBONATE 300 MG TABLET PO SCH ×2 (08:05→20:02)
[2019-01-20] MEDS: glipiZIDE ER 2.5 MG TAB.ER.24 PO SCH (08:05)
[2019-01-20] MEDS: cloZAPine 100 MG TABLET PO SCH ×2 (08:06→20:01)
[2019-01-20] MEDS: BENZTROPINE MESYLATE 1 MG TABLET PO SCH ×2 (08:06→20:01)
[2019-01-20] MEDS: PANTOPRAZOLE 40 MG TABLET. PO SCH (08:06)
[2019-01-20] MEDS: LUBIPROSTONE 24 MCG CAPSULE PO SCH ×2 (08:06→17:37)
[2019-01-20] MEDS: cloZAPine 25 MG TABLET PO SCH ×2 (08:06→20:01)
[2019-01-20] MEDS: diazePAM 2 MG TABLET PO SCH ×2 (08:07→20:01)
[2019-01-20] MEDS: MEGESTROL 400 MG/10 ML ORAL.SUSP. PO SCH ×2 (08:07→20:02)
[2019-01-20] MEDS: METOPROLOL SUCC 24HR ER 25 MG TAB.ER.24H. PO SCH (08:07)
--- NOTE | 2019-01-20 11:38 | NUR ---
Severe hand tremors noted again at breakfast while feeding self. Dr. Goncalves consulted and paged, with return call. Discussed his diabetes, stated he'd "been diabetic for a very long time, and that insulin never helped me". But whatever you all think I need. Infomed him his blood sugars had continued to be high. Told we would consult the medical Dr. for any order changes. Since he was admitted for not eating, and now is eating regularly, his diabetes might be indicative. WBC elevated on 01/18 labs, continues to have increased thirst for water.
[2019-01-20] MEDS ORDERED: DEXTROSE 50% 25 GM / 50ML DISP.SYRIN. IV PRN (15:45)
[2019-01-20 16:14] VITALS: BP 132/68
[2019-01-20] MEDS: INSULIN LISPRO 300 UNITS/3 ML VIAL. SQ SCH (17:40)
[2019-01-20] MEDS: DONEPEZIL HCL 10 MG TABLET PO SCH (20:00)
[2019-01-20] MEDS: traZODone 100 MG TABLET. PO SCH (20:01)
[2019-01-20] MEDS: SIMVASTATIN 20 MG TABLET PO SCH (20:01)
--- NOTE | 2019-01-20 20:44 | PDOC ---
Exam Note: Vincent Note: Please also refer to the separate dictated note~for this date of service dictated separately.~Patient seen individually. Discussed the patient with Nursing staff reviewed the chart.~Reviewed interim history and current functioning. Reviewed vital signs,~Labs/ Radiology~and current medications noted below. Continue current treatment with the changes noted in the dictated addendum note Assessment: Vital Signs/I&O: Vital Signs Date Time Temp Pulse Resp B/P (MAP) Pulse Ox O2 Delivery O2 Flow Rate FiO2 01/20/19 16:14 98.7 100 16 132/68 (89) 98 01/15/19 16:10 Room Air I & O 01/19/19 01/19/19 01/20/19 14:59 22:59 06:59 Intake Total 1600 ml 960 ml Balance 1600 ml 960 ml Labs: Laboratory Tests Test 01/20/19 07:10 01/20/19 16:38 01/20/19 19:12 Glucose (Fingerstick) 233 mg/dL (70-99) H 224 mg/dL (70-99) H 277 mg/dL (70-99) H Current Medications: Meds: Current Medications Medications (Trade) Dose Ordered Sig/Sanna Route PRN Reason Start Time Stop Time Status Last Admin Dose Admin Insulin Human Lispro (HumaLOG) 0-5 UNITS TIDWMEALS SQ 01/20/19 17:00 01/20/19 17:40 I have reviewed the current psychotropics carefully including drug interactions. Risk benefit ratio favors no change other than as noted in my dictated progress note. Diagnosis: Problems: (1) Anxiety disorder (2) Schizoaffective disorder, chronic condition with acute exacerbation (3) Impulse control disorder KUNAL BEST MD Jan 20, 2019 20:44
[2019-01-20] MEDS: INSULIN GLARGINE SYRINGE. SQ SCH (21:00)
--- NOTE | 2019-01-20 22:21 | NUR ---
Pt was located in the dayroom this evening, laying down and withdrawn to self. Compliant with whole medications. Pleasant and calm. Pt asked if he could go back to his room after taking medications.
--- NOTE | 2019-01-20 23:02 | PN ---
DATE: 01/18/2019 PSYCHIATRIC PROGRESS NOTE This late entry 01/18/2019 covers elements not covered in my initial note. SUBJECTIVE: I met with the patient in his room. He remains somewhat withdrawn, paranoid, less aggressive. REVIEW OF SYSTEMS: No CV, , pulmonary, eye system symptoms on review. Reliability varies. MENTAL STATUS EXAM: Oriented to himself and situation. Speech moderate latency, often responses monosyllabic. Abstraction fair. Computation impaired. Language function intact. Mood and affect withdrawn. LABORATORY DATA: Reviewed. IMPRESSION: Unchanged from initial note. PLAN: No change from initial note, but we will taper the Valium 2 mg t.i.d. down to 2 mg b.i.d. for 2 days, then once a day for 2 days, then stop. Continue rest unchanged. MAN Alan BEST MD DR: MARRY/merced JOB#: [id number] / [id number]
--- NOTE | 2019-01-21 02:34 | PN ---
DATE: 01/19/2019 PSYCHIATRIC PROGRESS NOTE This late entry 01/19/2019 covers elements not covered in my initial note. SUBJECTIVE: The patient slept 8-1/2 hours previous night. He remains somewhat isolative, was shaky in the morning per nursing report. We will check a lithium level, repeat in 2 days since the last level was 0.7, therapeutic. REVIEW OF SYSTEMS: Positive for tiredness. No CV, , pulmonary, eye system symptoms on review. I met with him in his room where he remains withdrawn. MENTAL STATUS EXAM: Reasonably oriented. Speech has some latency, coherent, often response is monosyllabic. Abstraction fair, computation impaired, language function intact. Mood and affect withdrawn. LABORATORY DATA: Reviewed. IMPRESSION: Unchanged from initial note. PLAN: No change from initial note and we will continue to taper the Valium gradually. MAN Alan BEST MD DR: MARRY/merced JOB#: [id number] / [id number]
[2019-01-21] MEDS: LEVOTHYROXINE 100 MCG TABLET PO SCH (05:52)
[2019-01-21 06:17] VITALS: BP 138/92
[2019-01-21 06:33] LABS: BASO % 0 % (0-3); EOS % 0 % (0-3); HEMATOCRIT 42.5 % (39.0-53.0); HEMOGLOBIN 14.2 g/dL (13.0-17.5); LYMPH % 18 % (24-48); MEAN CORPUSCULAR HEMOGLOBIN 30 pg (25-35); MEAN CORPUSCULAR HGB CONC 34 g/dL (31-37); MEAN CORPUSCULAR VOLUME 89 fL (79-100); MONO # 0.8 x10^3/uL (0.0-1.1); MONO % 7 % (0-9); NEUT # 8.5 x10^3uL (1.8-7.7); NEUT % 75 % (31-73); PLATELET COUNT 217 x10^3/uL (140-400); RED BLOOD COUNT 4.77 x10^6/uL (4.30-5.70); WHITE BLOOD COUNT 11.3 x10^3/uL (4.0-11.0)
[2019-01-21 06:41] LABS: ALBUMIN 3.5 g/dL (3.4-5.0); ALBUMIN/GLOBULIN RATIO 1.2 (1.0-1.7); CALCIUM 10.1 mg/dL (8.5-10.1); CREATININE 1.4 mg/dL (0.7-1.3); GFR 51.5; POTASSIUM 4.9 mmol/L (3.5-5.1); TOTAL BILIRUBIN 0.6 mg/dL (0.2-1.0); TOTAL PROTEIN 6.5 g/dL (6.4-8.2)
[2019-01-21 07:42] LABS: % BANDS 1 % (0-9); % LYMPHS 17 % (24-48); % MONOS 1 % (0-10); % SEGS 80 % (35-66); PLT ESTIMATE ADEQUATE (ADEQUATE)
[2019-01-21 07:43] LABS: % METAS 1 % (0-0)
[2019-01-21] MEDS: cloZAPine 100 MG TABLET PO SCH ×2 (08:47→21:05)
[2019-01-21] MEDS: LUBIPROSTONE 24 MCG CAPSULE PO SCH ×2 (08:47→17:16)
[2019-01-21] MEDS: MEGESTROL 400 MG/10 ML ORAL.SUSP. PO SCH ×2 (08:47→21:05)
[2019-01-21] MEDS: diazePAM 2 MG TABLET PO SCH (08:48)
[2019-01-21] MEDS: CITALOPRAM 20 MG TABLET. PO SCH (08:48)
[2019-01-21] MEDS: METOPROLOL SUCC 24HR ER 25 MG TAB.ER.24H. PO SCH (08:48)
[2019-01-21] MEDS: cloZAPine 25 MG TABLET PO SCH ×2 (08:48→21:06)
[2019-01-21] MEDS: BENZTROPINE MESYLATE 1 MG TABLET PO SCH ×2 (08:48→21:06)
[2019-01-21] MEDS: LITHIUM CARBONATE 300 MG TABLET PO SCH ×2 (08:48→21:05)
[2019-01-21] MEDS: PANTOPRAZOLE 40 MG TABLET. PO SCH (08:48)
[2019-01-21] MEDS: glipiZIDE ER 2.5 MG TAB.ER.24 PO SCH (08:48)
[2019-01-21] MEDS: INSULIN LISPRO 300 UNITS/3 ML VIAL. SQ SCH ×3 (08:55→17:20)
[2019-01-21] MEDS: INSULIN GLARGINE SYRINGE. SQ SCH ×3 (09:00→21:13)
--- NOTE | 2019-01-21 14:56 | NUR ---
Nursing note: Pt was in his room this morning for meds and assessment. He was compliant with his meds and cooperative with his assessment. He stated "I just want to be left alone. Addendum: 01/21/19 at 1501 by PEDRO SMITH RN RN Pt mentioned feeling a little depressed, but did not want to offer any information. He slept in his room all morning, but is currently in the day room this afternoon. Will continue to monitor.
[2019-01-21 16:12] VITALS: BP 151/95
--- NOTE | 2019-01-21 20:57 | PDOC ---
Exam Note: Vincent Note: Please also refer to the separate dictated note~for this date of service dictated separately.~Patient seen individually. Discussed the patient with Nursing staff reviewed the chart.~Reviewed interim history and current functioning. Reviewed vital signs,~Labs/ Radiology~and current medications noted below. Continue current treatment with the changes noted in the dictated addendum note Assessment: Vital Signs/I&O: Vital Signs Date Time Temp Pulse Resp B/P (MAP) Pulse Ox O2 Delivery O2 Flow Rate FiO2 01/21/19 16:12 98.5 102 16 151/95 (113) 96 01/15/19 16:10 Room Air I & O 01/20/19 01/20/19 01/21/19 15:00 23:00 07:00 Intake Total 720 ml 1080 ml Balance 720 ml 1080 ml Labs: Laboratory Tests Test 01/21/19 06:09 01/21/19 06:24 01/21/19 08:11 01/21/19 11:56 Sodium Level 145 mmol/L (136-145) Potassium Level 4.9 mmol/L (3.5-5.1) Chloride Level 107 mmol/L (98-107) Carbon Dioxide Level 31 mmol/L (21-32) Anion Gap 7 (6-14) Blood Urea Nitrogen 24 mg/dL (8-26) Creatinine 1.4 mg/dL (0.7-1.3) H Estimated GFR (Cockcroft-Gault) 51.5 BUN/Creatinine Ratio 17 (6-20) Glucose Level 214 mg/dL (70-99) H Calcium Level 10.1 mg/dL (8.5-10.1) Total Bilirubin 0.6 mg/dL (0.2-1.0) Aspartate Amino Transferase (AST) 16 U/L (15-37) Alanine Aminotransferase (ALT) 53 U/L (16-63) Alkaline Phosphatase 80 U/L (46-116) Total Protein 6.5 g/dL (6.4-8.2) Albumin 3.5 g/dL (3.4-5.0) Albumin/Globulin Ratio 1.2 (1.0-1.7) [place] Level 0.8 mmol/L (0.6-1.2) [place] Last Dose Date Unknown [place] Last Dose Time Unknown White Blood Count 11.3 x10^3/uL (4.0-11.0) H Red Blood Count 4.77 x10^6/uL (4.30-5.70) Hemoglobin 14.2 g/dL (13.0-17.5) Hematocrit 42.5 % (39.0-53.0) Mean Corpuscular Volume 89 fL (79-100) Mean Corpuscular Hemoglobin 30 pg (25-35) Mean Corpuscular Hemoglobin Concent 34 g/dL (31-37) Red Cell Distribution Width 14.0 % (11.5-14.5) Platelet Count 217 x10^3/uL (140-400) Neutrophils (%) (Auto) 75 % (31-73) H Lymphocytes (%) (Auto) 18 % (24-48) L Monocytes (%) (Auto) 7 % (0-9) Eosinophils (%) (Auto) 0 % (0-3) Basophils (%) (Auto) 0 % (0-3) Neutrophils # (Auto) 8.5 x10^3uL (1.8-7.7) H Lymphocytes # (Auto) 2.0 x10^3/uL (1.0-4.8) Monocytes # (Auto) 0.8 x10^3/uL (0.0-1.1) Eosinophils # (Auto) 0.0 x10^3/uL (0.0-0.7) Basophils # (Auto) 0.0 x10^3/uL (0.0-0.2) Segmented Neutrophils % 80 % (35-66) H Band Neutrophils % 1 % (0-9) Lymphocytes % 17 % (24-48) L Monocytes % 1 % (0-10) Metamyelocytes % 1 % (0-0) H Myelocytes % % (0-0) Platelet Estimate Adequate (ADEQUATE) Large Platelets Occ Glucose (Fingerstick) 218 mg/dL (70-99) H 160 mg/dL (70-99) H Test 01/21/19 17:00 01/21/19 19:15 Glucose (Fingerstick) 194 mg/dL (70-99) H 177 mg/dL (70-99) H Current Medications: Meds: Current Medications Medications (Trade) Dose Ordered Sig/Sanna Route PRN Reason Start Time Stop Time Status Last Admin Dose Admin Diazepam (Valium) 2 mg DAILY PO 01/21/19 09:00 01/24/19 08:59 01/21/19 08:48 Insulin Glargine (Lantus Syringe) 15 unit BID SQ 01/20/19 21:00 01/21/19 10:07 I have reviewed the current psychotropics carefully including drug interactions. Risk benefit ratio favors no change other than as noted in my dictated progress note. Diagnosis: Problems: (1) Anxiety disorder (2) Schizoaffective disorder, chronic condition with acute exacerbation (3) Impulse control disorder KUNAL BEST MD Jan 21, 2019 20:57
[2019-01-21] MEDS: DONEPEZIL HCL 10 MG TABLET PO SCH (21:06)
[2019-01-21] MEDS: SIMVASTATIN 20 MG TABLET PO SCH (21:07)
[2019-01-21] MEDS: traZODone 100 MG TABLET. PO SCH (21:07)
--- NOTE | 2019-01-21 22:22 | PN ---
DATE: 01/20/2019 PSYCHIATRIC PROGRESS NOTE. This late entry of 01/20/2019 covers the elements not covered in my initial note. SUBJECTIVE: I met with the patient in the evening of 01/20/2019 in his room. The patient has been withdrawn, isolative, sleeping well at night, tired during the day, less paranoid, but still psychotic. REVIEW OF SYSTEMS: Ambulation reasonable. No CV, , pulmonary, eye system symptoms on review. MENTAL STATUS EXAM: Reasonably oriented. Speech has some latency, coherent. Abstraction fair, computation impaired, language function intact. Mood and affect withdrawn. LABORATORY DATA: Reviewed. IMPRESSION: Unchanged from initial note. PLAN: No change from initial note. We will check CBC, absolute neutrophil count on 01/21/2019 and then may increase the Clozaril thereafter. [place] level is therapeutic at 0.7. Valium is being tapered. MAN Alan BEST MD DR: MARRY/merced JOB#: [id number] / [id number]
--- NOTE | 2019-01-21 23:39 | NUR ---
Nursing Note The patient was located in his room for his medication and assessment. The patient took his medication whole and was appropriate during interactions with this nurse and other staff. The patient was withdrawn this shift and stayed in bed this evening.
[2019-01-22 05:47] VITALS: BP 141/83
[2019-01-22] MEDS: LEVOTHYROXINE 100 MCG TABLET PO SCH (06:13)
[2019-01-22] MEDS: glipiZIDE ER 2.5 MG TAB.ER.24 PO SCH (09:28)
[2019-01-22] MEDS: MEGESTROL 400 MG/10 ML ORAL.SUSP. PO SCH ×2 (09:28→20:27)
[2019-01-22] MEDS: BENZTROPINE MESYLATE 1 MG TABLET PO SCH ×2 (09:29→20:27)
[2019-01-22] MEDS: PANTOPRAZOLE 40 MG TABLET. PO SCH (09:29)
[2019-01-22] MEDS: CITALOPRAM 20 MG TABLET. PO SCH (09:29)
[2019-01-22] MEDS: diazePAM 2 MG TABLET PO SCH (09:29)
[2019-01-22] MEDS: LITHIUM CARBONATE 300 MG TABLET PO SCH ×2 (09:30→20:27)
[2019-01-22] MEDS: cloZAPine 25 MG TABLET PO SCH ×2 (09:30→20:28)
[2019-01-22] MEDS: METOPROLOL SUCC 24HR ER 25 MG TAB.ER.24H. PO SCH (09:30)
[2019-01-22] MEDS: cloZAPine 100 MG TABLET PO SCH ×2 (09:31→20:28)
[2019-01-22] MEDS: LUBIPROSTONE 24 MCG CAPSULE PO SCH ×2 (09:31→17:25)
[2019-01-22] MEDS: INSULIN GLARGINE SYRINGE. SQ SCH ×2 (09:32→20:34)
[2019-01-22] MEDS: INSULIN LISPRO 300 UNITS/3 ML VIAL. SQ SCH ×3 (09:33→17:00)
--- NOTE | 2019-01-22 12:59 | NUR ---
Patient is fixated on returning to bed after meals. At morning med pass he was in his room and was irritated with orientation questions. He told the nurse to "stop the inquisition and give me my damn meds". Patient compliant with medications. Patient was in the day room for about 30 minutes but did not participate in group.
[2019-01-22 15:49] VITALS: BP 134/88
[2019-01-22] MEDS: DONEPEZIL HCL 10 MG TABLET PO SCH (20:27)
[2019-01-22] MEDS: traZODone 100 MG TABLET. PO SCH (20:27)
[2019-01-22] MEDS: SIMVASTATIN 20 MG TABLET PO SCH (20:29)
--- NOTE | 2019-01-22 20:39 | PDOC ---
Exam Note: Vincent Note: Please also refer to the separate dictated note~for this date of service dictated separately.~Patient seen individually. Discussed the patient with Nursing staff reviewed the chart.~Reviewed interim history and current functioning. Reviewed vital signs,~Labs/ Radiology~and current medications noted below. Continue current treatment with the changes noted in the dictated addendum note Assessment: Vital Signs/I&O: Vital Signs Date Time Temp Pulse Resp B/P (MAP) Pulse Ox O2 Delivery O2 Flow Rate FiO2 01/22/19 15:49 97.9 100 18 134/88 (103) 100 I & O 01/21/19 01/21/19 01/22/19 15:00 23:00 07:00 Intake Total 960 ml 480 ml Balance 960 ml 480 ml Labs: Laboratory Tests Test 01/22/19 07:32 01/22/19 11:58 01/22/19 16:47 01/22/19 19:15 Glucose (Fingerstick) 170 mg/dL (70-99) H 171 mg/dL (70-99) H 95 mg/dL (70-99) 160 mg/dL (70-99) H Current Medications: Meds: Current Medications Medications (Trade) Dose Ordered Sig/Sanna Route PRN Reason Start Time Stop Time Status Last Admin Dose Admin Clozapine (Clozaril) 200 mg QHS PO 01/21/19 21:00 01/22/19 20:28 Clozapine (Clozaril) 50 mg HS PO 01/21/19 21:00 01/22/19 20:28 I have reviewed the current psychotropics carefully including drug interactions. Risk benefit ratio favors no change other than as noted in my dictated progress note. Diagnosis: Problems: (1) Anxiety disorder (2) Schizoaffective disorder, chronic condition with acute exacerbation (3) Impulse control disorder KUNAL BEST MD Jan 22, 2019 20:39
--- NOTE | 2019-01-22 21:35 | PN ---
DATE: 01/21/2019 PSYCHIATRIC PROGRESS NOTE This late entry 01/21/2019 covers elements not covered in my initial note. SUBJECTIVE: I met with the patient in the evening. Per VIRY Espinoza, the patient slept 7-3/4 hours previous night. He remains withdrawn, spends much time in his room, which is where I met with him. He was cooperative with his meds in the morning along with assessments, came to the day room later in the day. Absolute neutrophil count is 8475 which is unremarkable. REVIEW OF SYSTEMS: No CV, , pulmonary, eye system symptoms on review. MENTAL STATUS EXAM: Oriented reasonably. Speech has some latency, often responses monosyllabic. Abstraction fair, computation impaired, language function intact, attention span short. Mood and affect withdrawn. He is still somewhat paranoid, suspicious but less so than before. LABORATORY DATA: Reviewed. IMPRESSION: Schizoaffective disorder, bipolar type, mixed with psychotic features. Rest unchanged. PLAN: The patient is currently on clozapine 225 mg b.i.d. We will increase to 225 mg a.m., 250 at bedtime. Continue lithium at current dosage 450 b.i.d. Repeat lithium level in 2 days. Continue Celexa, Cogentin, Aricept, Haldol p.r.n., trazodone, Valium is being tapered and medroxyprogesterone 5 mg b.i.d., may need to be tapered as well in a day or two. KUNAL BEST MD DR: MARRY/merced JOB#: [id number] / [id number]
[2019-01-23] MEDS: LEVOTHYROXINE 100 MCG TABLET PO SCH (05:41)
[2019-01-23 06:07] VITALS: BP 123/64
[2019-01-23] MEDS: MEGESTROL 400 MG/10 ML ORAL.SUSP. PO SCH ×2 (08:54→20:30)
[2019-01-23] MEDS: CITALOPRAM 20 MG TABLET. PO SCH (08:54)
[2019-01-23] MEDS: diazePAM 2 MG TABLET PO SCH (08:55)
[2019-01-23] MEDS: LITHIUM CARBONATE 300 MG TABLET PO SCH ×2 (08:55→20:29)
[2019-01-23] MEDS: LUBIPROSTONE 24 MCG CAPSULE PO SCH ×2 (08:56→17:05)
[2019-01-23] MEDS: PANTOPRAZOLE 40 MG TABLET. PO SCH (08:56)
[2019-01-23] MEDS: BENZTROPINE MESYLATE 1 MG TABLET PO SCH ×2 (08:56→20:29)
[2019-01-23] MEDS: METOPROLOL SUCC 24HR ER 25 MG TAB.ER.24H. PO SCH (08:56)
[2019-01-23] MEDS: cloZAPine 100 MG TABLET PO SCH ×2 (08:57→20:29)
[2019-01-23] MEDS: glipiZIDE ER 2.5 MG TAB.ER.24 PO SCH (08:57)
[2019-01-23] MEDS: cloZAPine 25 MG TABLET PO SCH ×2 (08:57→20:30)
[2019-01-23] MEDS: INSULIN GLARGINE SYRINGE. SQ SCH ×2 (08:58→20:31)
[2019-01-23] MEDS: INSULIN LISPRO 300 UNITS/3 ML VIAL. SQ SCH ×3 (09:01→17:24)
--- NOTE | 2019-01-23 10:13 | NUR ---
SIMI received call from pt father, Elias, who wanted to see how pt was doing. Elias reports that he is hopeful that pt will be able [facility]. He was not aware this had not been passed on to Elizabeth with the [facility]. Elias reports that pt is his own worst enemy and if there was a way to have pt be consistent on his medications, that would be most beneficial. Pt father reports that he will be 90 next year and cannot do much as he is in [place] himself, but likes to be kept in the loop of things. SIMI will make sure to contact Elias with updates.
--- NOTE | 2019-01-23 11:12 | NUR ---
SIMI attempted to contact Damian at pt facility, [facility], and was told she was out of the facility until this afternoon. SIMI left a message asking for her to contact SIMI when possible re: an update on pt.
--- NOTE | 2019-01-23 11:27 | NUR ---
SIMI attempted to contact Elizabeth at the [facility] office and left a message asking for a returned call when possible.
[2019-01-23 15:49] VITALS: BP 112/75
[2019-01-23] MEDS: SIMVASTATIN 20 MG TABLET PO SCH (20:28)
[2019-01-23] MEDS: traZODone 100 MG TABLET. PO SCH (20:29)
[2019-01-23] MEDS: DONEPEZIL HCL 10 MG TABLET PO SCH (20:29)
--- NOTE | 2019-01-23 23:27 | PN ---
DATE: 01/22/2019 PSYCHIATRIC PROGRESS NOTE This late entry 01/22/2019 covers the elements not covered in my initial note. SUBJECTIVE: I met with the patient at some length in his room individually. Per report from VIRY Carrillo, the patient slept 6-3/4 hours previous night. [place] level is 0.8. He remains somewhat withdrawn, but no clear hallucinations, suicidal or homicidal ideation. He remains somewhat paranoid. REVIEW OF SYSTEMS: Positive for tiredness. No CV, , pulmonary, eye system symptoms on review. MENTAL STATUS EXAM: Reasonably oriented. Speech is coherent, has some latency. Abstraction fair, computation impaired, language function intact. Mood and affect withdrawn. LABORATORY DATA: Reviewed. IMPRESSION: Unchanged from initial note. PLAN: No change from initial note. MAN Alan BEST MD DR: MARRY/merced JOB#: [id number] / [id number]
--- NOTE | 2019-01-23 23:57 | PN ---
DATE: 01/23/2019 SUBJECTIVE: The patient was seen today, met with the staff, chart reviewed. Staff reports that the patient staying in bed all the time, complains of weakness, fatigue and also isolating himself. The patient also irritable and fuentes. The patient also neglecting his appearance. The patient is also exhibiting mood swings, irritability. OBSERVATION: VITAL SIGNS: Temperature 97.8, blood pressure 123/64, pulse 89, respirations 20, O2 sat 93%. Slept about 10 hours last night. The patient's appetite is fair. MEDICATIONS: The patient's medications reviewed and is on clozaril 50 mg and 200 mg at bid, diazepam 2 mg daily, also Clozaril 25 mg daily, trazodone 100 mg at night, Aricept 10 mg at night, Cogentin 1 mg twice a day, Celexa 40 mg daily, Haldol 5 mg q. 6 hours p.r.n. LABORATORY DATA: The patient's lab reviewed. The patient's lithium level was 0.8. The patient's creatinine level was 1.4. ASSESSMENT: Schizoaffective disorder, bipolar type; anxiety disorder, unspecified. PLAN: Continue with the current treatment plan. LENGTH OF STAY: 5-7 days. JED ESTEVEZ MD DR: AISHWARYA/merced JOB#: [id number] / [id number] RILEY
[2019-01-24] MEDS: LEVOTHYROXINE 100 MCG TABLET PO SCH (05:42)
[2019-01-24 06:09] VITALS: BP 149/93
[2019-01-24] MEDS: INSULIN LISPRO 300 UNITS/3 ML VIAL. SQ SCH ×3 (09:36→17:45)
[2019-01-24] MEDS: INSULIN GLARGINE SYRINGE. SQ SCH ×2 (09:43→20:56)
[2019-01-24] MEDS: MEGESTROL 400 MG/10 ML ORAL.SUSP. PO SCH ×2 (09:44→20:53)
[2019-01-24] MEDS: cloZAPine 25 MG TABLET PO SCH ×2 (09:44→20:52)
[2019-01-24] MEDS: BENZTROPINE MESYLATE 1 MG TABLET PO SCH ×2 (09:44→20:52)
[2019-01-24] MEDS: METOPROLOL SUCC 24HR ER 25 MG TAB.ER.24H. PO SCH (09:44)
[2019-01-24] MEDS: cloZAPine 100 MG TABLET PO SCH ×2 (09:45→20:52)
[2019-01-24] MEDS: CITALOPRAM 20 MG TABLET. PO SCH (09:45)
[2019-01-24] MEDS: LUBIPROSTONE 24 MCG CAPSULE PO SCH ×2 (09:45→17:48)
[2019-01-24] MEDS: LITHIUM CARBONATE 300 MG TABLET PO SCH ×2 (09:45→20:52)
[2019-01-24] MEDS: glipiZIDE ER 2.5 MG TAB.ER.24 PO SCH (09:46)
[2019-01-24] MEDS: PANTOPRAZOLE 40 MG TABLET. PO SCH (09:46)
--- NOTE | 2019-01-24 13:06 | NUR ---
Patient irritable and withdrawn to room between meals. Patient stated "I don't want to discuss that now" when asked orientation questions and when asked if he had pain. Patient is eating well, eats quickly and returns to his room immediately after meal. Compliant with medications but irritated when he is woke up for them. Patient stated that he sleeps all the time because he "is tired and has fatigue."
[2019-01-24 16:23] VITALS: BP 110/73
--- NOTE | 2019-01-24 19:53 | NUR ---
WEEKLY ACTIVITY THERAPY NOTE Date of Admission: 01/10/2019 Date of AT Assessment: 01/14/2019 Goal aimed: to increase relaxation techniques and leisure engagement Initial goal: Pt. will participate in at least five individual or Activity Therapy groups before discharge. Weekly progress towards goal: on track, 0/5 Group participation level: zero Weekly highlights: Behaviors observed: Pt. was up and down regularly throughout the group on Monday morning. He wanted to leave, he laid on the sofa, non compliant with prompting, unable to be redirected with encouragement to participate. He complained not being about to "cope." He needed constant reminders and prompts to remain seated. He was unable to focus on group Plan: change goal to: Pt. will participate in at least one individual Activity Therapy group before discharge. Beneficial adaptations: TBD
--- NOTE | 2019-01-24 20:20 | PN ---
DATE: 01/24/2019 SUBJECTIVE: The patient was seen today, met with the staff, chart reviewed. The patient still depressed, tend to stay in bed most of the time. The patient likes to be left alone. The patient has been completely off the Valium. The patient continues to complain of feeling fatigued, tired, but denies of feeling depressed. The patient is not having any physical complaints. OBSERVATION: VITAL SIGNS: Temperature 98.1, blood pressure 149/93, pulse 109, respirations 20, O2 sat 94%. GENERAL: Slept about 9 hours last night. The patient's appetite is fair. LABORATORY DATA: The patient's lab reviewed. MEDICATIONS: The patient's current medications include clozapine 50 mg at night, 200 mg b.i.d. and 25 mg daily; lithium carbonate 450 mg b.i.d.; trazodone 100 mg at night; Aricept 10 mg at night; Celexa 40 mg daily; Haldol 5 mg q. 6 hours p.r.n. The patient denies of any side effects to the medications. ASSESSMENT: 1. Schizoaffective disorder, bipolar type. 2. Anxiety disorder, unspecified. JED ESTEVEZ MD DR: AISHWARYA/merced JOB#: [id number] / [id number]
[2019-01-24] MEDS: traZODone 100 MG TABLET. PO SCH (20:52)
[2019-01-24] MEDS: SIMVASTATIN 20 MG TABLET PO SCH (20:52)
[2019-01-24] MEDS: DONEPEZIL HCL 10 MG TABLET PO SCH (20:52)
--- NOTE | 2019-01-24 22:14 | NUR ---
Nsg Note: patient in room laying down at time of medication administration and assessments. Patient got up for medications. When asked if patient has been sleeping all day and all night, patient stated he just "lays there sometimes awake thinking." and, "his hands shake so he lays on them." Education given that patient needs to be eating meals and try to participate in groups during the day. Patient laid back down immediately after medication pass. No other notable behaviors at this time.
[2019-01-25] MEDS: LEVOTHYROXINE 100 MCG TABLET PO SCH (06:00)
[2019-01-25 07:24] VITALS: BP 139/89
[2019-01-25] MEDS: INSULIN LISPRO 300 UNITS/3 ML VIAL. SQ SCH ×3 (08:00→17:00)
[2019-01-25] MEDS: LUBIPROSTONE 24 MCG CAPSULE PO SCH ×2 (08:40→18:11)
[2019-01-25] MEDS: BENZTROPINE MESYLATE 1 MG TABLET PO SCH ×2 (08:41→20:50)
[2019-01-25] MEDS: MEGESTROL 400 MG/10 ML ORAL.SUSP. PO SCH ×2 (08:41→20:50)
[2019-01-25] MEDS: METOPROLOL SUCC 24HR ER 25 MG TAB.ER.24H. PO SCH (08:41)
[2019-01-25] MEDS: CITALOPRAM 20 MG TABLET. PO SCH (08:41)
[2019-01-25] MEDS: cloZAPine 25 MG TABLET PO SCH ×2 (08:41→20:51)
[2019-01-25] MEDS: LITHIUM CARBONATE 300 MG TABLET PO SCH ×2 (08:41→20:51)
[2019-01-25] MEDS: cloZAPine 100 MG TABLET PO SCH ×2 (08:42→20:50)
[2019-01-25] MEDS: glipiZIDE ER 2.5 MG TAB.ER.24 PO SCH (08:42)
[2019-01-25] MEDS: PANTOPRAZOLE 40 MG TABLET. PO SCH (08:42)
[2019-01-25] MEDS: INSULIN GLARGINE SYRINGE. SQ SCH ×2 (08:48→20:53)
--- NOTE | 2019-01-25 12:13 | NUR ---
Pt has been very irritable and resistive this morning. Pt has been sleeping in the quiet room all morning and refused to wake up for breakfast. Pt refused to acknowledge this nurse or open his eyes for medication administration. Pt eventually took medications with much resistance. Pt extremely resistive to shower. Pt taken to the dayroom after the shower where he began displaying behaviors: dumped his water purposefully and acted as if he was going to fall. Pt then went back to his room where he continued to sleep until lunch. Pt up for lunch with much resistance.
--- NOTE | 2019-01-25 14:30 | NUR ---
SIMI contacted Lu at pt facility to discuss how pt is doing. Lu reports that it is very typical for pt to place himself on the floor for reasons unknown, as well as to randomly be found doing jumping jacks. Lu did request that SIMI send over updated notes so that they can review them. SIMI alerted her of discharge to be the latter part of next week.
--- NOTE | 2019-01-25 15:00 | NUR ---
SIMI returned call to Elizabeth at the [facility] office to give her an update on pt. SIMI did let Elizabeth know that pt is being medication compliant; however, is very irritable with all of the assessment questions that nursing has to ask. SIMI also informed Elizabeth of pt placing himself on the floor, which she was not aware that he was doing. SIMI informed him that Lu reports that pt also does it at the facility. Elizabeth asks that SIMI give an update sometime next week and will finalize discharge plans at that time.
[2019-01-25 16:27] VITALS: BP 111/75
[2019-01-25] MEDS: traZODone 100 MG TABLET. PO SCH (20:50)
[2019-01-25] MEDS: DONEPEZIL HCL 10 MG TABLET PO SCH (20:50)
[2019-01-25] MEDS: SIMVASTATIN 20 MG TABLET PO SCH (20:50)
--- NOTE | 2019-01-26 00:44 | PN ---
DATE: 01/25/2019 SUBJECTIVE: The patient was seen today, met with the staff, chart reviewed. The patient continues to have mood swings, irritability, argumentative, poor eye contact, wants to stay in bed most of the time. The patient also has physical complaints, complaining of constipation, not having had a bowel movement lately. The patient also has some muscle twitchings almost like myoclonic jerks, also having involuntary movements. The patient continues to complain of feeling tired and weak, like to be left alone. OBSERVATION: VITAL SIGNS: Temperature 97.4, blood pressure 139/89, pulse 102, respirations 18, O2 sat 95%. GENERAL: Slept about 7 hours last night. The patient's appetite is fair. LABORATORY DATA: The patient's lab reviewed. MEDICATIONS: The patient's current medications include clozapine 50 mg at night, 200 mg b.i.d. and 25 mg daily; lithium carbonate 450 mg b.i.d.; trazodone 100 mg at night; Aricept 10 mg at night; Celexa 40 mg daily and Haldol 5 mg q. 6 hours p.r.n. The patient is not showing any side effects except that he has involuntary movements, is not sure whether this is related to medications that he is taking. ASSESSMENT: 1. Schizoaffective disorder, bipolar type. 2. Anxiety disorder, unspecified. PLAN: To continue with the treatment. LENGTH OF STAY: 5-7 days. JED ESTEVEZ MD DR: AISHWARYA/merced JOB#: [id number] / [id number]
--- NOTE | 2019-01-26 02:31 | NUR ---
Denisse Note: Patient was in room at time of medication pass and assessments, patient was laying in bed and when called answered angrily, "what now" patient got up moaning and groaning on edge of bed to take medications and was silent the entire time. Immediately laid back down afterwards. Addendum: 01/26/19 at 0236 by GYPSY MILLARD RN Glucose 362 -- Dr Vera notified. No new order given @ that time.
[2019-01-26] MEDS: LEVOTHYROXINE 100 MCG TABLET PO SCH (05:26)
[2019-01-26] MEDS: INSULIN LISPRO 300 UNITS/3 ML VIAL. SQ SCH ×3 (08:00→17:00)
[2019-01-26] MEDS: METOPROLOL SUCC 24HR ER 25 MG TAB.ER.24H. PO SCH (08:28)
[2019-01-26] MEDS: MEGESTROL 400 MG/10 ML ORAL.SUSP. PO SCH ×2 (08:30→20:33)
[2019-01-26] MEDS: LITHIUM CARBONATE 300 MG TABLET PO SCH ×2 (08:31→20:35)
[2019-01-26] MEDS: glipiZIDE ER 2.5 MG TAB.ER.24 PO SCH (08:31)
[2019-01-26] MEDS: cloZAPine 25 MG TABLET PO SCH ×2 (08:31→20:34)
[2019-01-26] MEDS: CITALOPRAM 20 MG TABLET. PO SCH (08:31)
[2019-01-26] MEDS: LUBIPROSTONE 24 MCG CAPSULE PO SCH ×2 (08:31→17:00)
[2019-01-26] MEDS: BENZTROPINE MESYLATE 1 MG TABLET PO SCH ×2 (08:31→20:34)
[2019-01-26] MEDS: PANTOPRAZOLE 40 MG TABLET. PO SCH (08:32)
[2019-01-26] MEDS: cloZAPine 100 MG TABLET PO SCH ×2 (08:32→20:34)
[2019-01-26] MEDS: CHOLECALCIFEROL (VITAMIN D3) 50,000 UNIT CAPSULE PO SCH (08:32)
[2019-01-26] MEDS: INSULIN GLARGINE SYRINGE. SQ SCH ×2 (08:52→20:42)
[2019-01-26 09:23] VITALS: BP 139/89
[2019-01-26 15:58] VITALS: BP 92/21
--- NOTE | 2019-01-26 16:38 | NUR ---
Pt up for meals. Has been compliant with meds. Significant hand tremors noted. Pt threw himself on floor during lunch. Pt returned to room in .
[2019-01-26] MEDS: traZODone 100 MG TABLET. PO SCH (20:34)
[2019-01-26] MEDS: DONEPEZIL HCL 10 MG TABLET PO SCH (20:35)
[2019-01-26] MEDS: SIMVASTATIN 20 MG TABLET PO SCH (20:35)
--- NOTE | 2019-01-27 02:48 | PN ---
DATE: 01/26/2019 SUBJECTIVE: The patient was seen today, met with the staff, chart reviewed. The patient continues to have tremors and also generalized involuntary movements and also having some myoclonic jerks. The patient is still irritable and fuentes, wanting to stay in bed most of the time. OBSERVATION: VITAL SIGNS: Temperature 97.8, blood pressure 92/71, pulse 104, respirations 16, O2 sat 99%. GENERAL: Slept about 8 hours last night. The patient's appetite is fair. The patient is not having any other physical complaints. The patient has been seen by Dr. Goncalves several times for his involuntary movements. MEDICATIONS: The patient's current medications include clozapine 50 mg at night, 200 mg b.i.d. and 25 mg daily; lithium carbonate 450 mg b.i.d.; trazodone 100 mg at night and Aricept 10 mg at night. The patient is also on Celexa 40 mg daily and Haldol 5 mg q. 6 hours p.r.n. The patient is not having any other side effects. ASSESSMENT: 1. Schizoaffective disorder, bipolar type. 2. Anxiety disorder, unspecified. PLAN: To continue with the treatment. LENGTH OF STAY: 5-7 days. JED ESTEVEZ MD DR: AISHWARYA/merced JOB#: [id number] / [id number]
[2019-01-27] MEDS: LEVOTHYROXINE 100 MCG TABLET PO SCH (06:00)
[2019-01-27 06:31] VITALS: BP 133/77
[2019-01-27] MEDS: INSULIN LISPRO 300 UNITS/3 ML VIAL. SQ SCH ×3 (08:00→17:00)
[2019-01-27] MEDS: MEGESTROL 400 MG/10 ML ORAL.SUSP. PO SCH ×2 (08:48→19:59)
[2019-01-27] MEDS: METOPROLOL SUCC 24HR ER 25 MG TAB.ER.24H. PO SCH (08:48)
[2019-01-27] MEDS: LITHIUM CARBONATE 300 MG TABLET PO SCH ×2 (08:50→19:58)
[2019-01-27] MEDS: PANTOPRAZOLE 40 MG TABLET. PO SCH (08:50)
[2019-01-27] MEDS: CITALOPRAM 20 MG TABLET. PO SCH (08:51)
[2019-01-27] MEDS: cloZAPine 100 MG TABLET PO SCH ×2 (08:51→19:58)
[2019-01-27] MEDS: BENZTROPINE MESYLATE 1 MG TABLET PO SCH ×2 (08:51→19:57)
[2019-01-27] MEDS: cloZAPine 25 MG TABLET PO SCH ×2 (08:51→19:58)
[2019-01-27] MEDS: glipiZIDE ER 2.5 MG TAB.ER.24 PO SCH (08:52)
[2019-01-27] MEDS: LUBIPROSTONE 24 MCG CAPSULE PO SCH ×2 (08:52→17:00)
[2019-01-27] MEDS: INSULIN GLARGINE SYRINGE. SQ SCH ×2 (09:00→20:04)
--- NOTE | 2019-01-27 12:25 | NUR ---
WEEKY NOTE: Pt is eating 75-100% of meals and sleeping on average 6.5 hours. Pt is withdrawn to his room and does not wish to attend groups. Pt does display irritability during nursing assessments and gets agitated when asked to complete tasks. Pt has been found sitting on the floor in the hallway from time to time and is redirected when asked to get up. Pt will look towards potential discharge for the end of next week.
[2019-01-27 15:36] VITALS: BP 97/66
--- NOTE | 2019-01-27 17:34 | NUR ---
Pt up for meals with encouragement. Withdrawn to room rest of time. Has been compliant with meds. Dr Suazo here to see pt. Dr damon pt has some muscular type degeneration . Dr spoke with Dr Goncalves and about plan of care. Dr Goncalves to see later today.
[2019-01-27] MEDS: DONEPEZIL HCL 10 MG TABLET PO SCH (19:58)
[2019-01-27] MEDS: SIMVASTATIN 20 MG TABLET PO SCH (19:59)
[2019-01-27] MEDS: traZODone 100 MG TABLET. PO SCH (19:59)
--- NOTE | 2019-01-27 23:26 | PN ---
DATE: 01/26/2019 SUBJECTIVE: The patient was seen today, met with the staff, chart reviewed. The patient continues to have muscle fasciculations, myoclonic jerks and involuntary movements and hand tremors, also unsteady gait. The patient also admits to feeling tired and weak. The patient also admits to having muscle spasms at times. The patient stays in bed most of the time. OBSERVATION: VITAL SIGNS: Temperature 97.8, blood pressure 92/65, respirations 16, pulse 104, O2 sat 99%. GENERAL: Slept fair. The patient is also irritable and fuentes, does not make eye contact. The patient also has generalized anxiety and agitation, and also concrete thinking and also blunting of affect. MEDICATIONS: Currently on clozapine 50 mg at night, 200 mg b.i.d. and 25 mg daily; lithium carbonate 450 mg b.i.d., trazodone 100 mg at night and Aricept 10 mg at night. The patient is also on Celexa 40 mg daily and Haldol 5 mg q. 6 hours p.r.n. ASSESSMENT: 1. Schizoaffective disorder, bipolar type. 2. Anxiety disorder, unspecified. PLAN: To continue with the treatment. LENGTH OF STAY: 5 to 7 days. JED ESTEVEZ MD DR: AISHWARYA/merced JOB#: [id number] / [id number] RILEY
--- NOTE | 2019-01-27 23:44 | NUR ---
Pt located in his room sleeping all evening. Pt compliant with sitting up and taking his medications, however pt did not speak or look at this nurse. After taking medications, pt laid back down in bed and went to sleep.
[2019-01-28] MEDS: LEVOTHYROXINE 100 MCG TABLET PO SCH (06:06)
[2019-01-28 06:11] VITALS: BP 129/70
[2019-01-28 06:23] LABS: BASO % 0 % (0-3); EOS % 0 % (0-3); HEMATOCRIT 46.5 % (39.0-53.0); HEMOGLOBIN 15.1 g/dL (13.0-17.5); LYMPH # 2.4 x10^3/uL (1.0-4.8); LYMPH % 15 % (24-48); MEAN CORPUSCULAR HEMOGLOBIN 29 pg (25-35); MEAN CORPUSCULAR HGB CONC 33 g/dL (31-37); MEAN CORPUSCULAR VOLUME 90 fL (79-100); MONO # 1.2 x10^3/uL (0.0-1.1); MONO % 7 % (0-9); NEUT # 12.3 x10^3uL (1.8-7.7); NEUT % 77 % (31-73); PLATELET COUNT 310 x10^3/uL (140-400); RED BLOOD COUNT 5.19 x10^6/uL (4.30-5.70); RED CELL DISTRIBUTION WIDTH 14.1 % (11.5-14.5); WHITE BLOOD COUNT 15.9 x10^3/uL (4.0-11.0)
[2019-01-28 06:38] LABS: ALBUMIN 3.8 g/dL (3.4-5.0); CALCIUM 10.3 mg/dL (8.5-10.1); CREATININE 1.4 mg/dL (0.7-1.3); GFR 51.5; POTASSIUM 4.5 mmol/L (3.5-5.1); TOTAL BILIRUBIN 0.5 mg/dL (0.2-1.0); TOTAL PROTEIN 7.5 g/dL (6.4-8.2)
[2019-01-28] MEDS: INSULIN LISPRO 300 UNITS/3 ML VIAL. SQ SCH ×3 (08:00→18:26)
[2019-01-28] MEDS: cloZAPine 25 MG TABLET PO SCH ×2 (08:01→20:30)
[2019-01-28] MEDS: MEGESTROL 400 MG/10 ML ORAL.SUSP. PO SCH ×2 (08:01→20:30)
[2019-01-28] MEDS: LUBIPROSTONE 24 MCG CAPSULE PO SCH ×2 (08:02→16:48)
[2019-01-28] MEDS: PANTOPRAZOLE 40 MG TABLET. PO SCH (08:02)
[2019-01-28] MEDS: cloZAPine 100 MG TABLET PO SCH ×2 (08:02→20:31)
[2019-01-28] MEDS: BENZTROPINE MESYLATE 1 MG TABLET PO SCH ×2 (08:02→20:31)
[2019-01-28] MEDS: glipiZIDE ER 2.5 MG TAB.ER.24 PO SCH (08:02)
[2019-01-28] MEDS: LITHIUM CARBONATE 300 MG TABLET PO SCH ×2 (08:03→20:30)
[2019-01-28] MEDS: METOPROLOL SUCC 24HR ER 25 MG TAB.ER.24H. PO SCH (08:03)
[2019-01-28] MEDS: CITALOPRAM 20 MG TABLET. PO SCH (08:04)
[2019-01-28] MEDS: INSULIN GLARGINE SYRINGE. SQ SCH ×2 (08:05→20:35)
[2019-01-28 08:58] LABS: % BANDS 3 % (0-9); % LYMPHS 20 % (24-48); % METAS 2 % (0-0); % MONOS 3 % (0-10); % SEGS 72 % (35-66); OVALOCYTES OCC; PLT ESTIMATE ADEQUATE (ADEQUATE)
--- NOTE | 2019-01-28 11:16 | RAD ---
CT HEAD WO CONTRAST Date: 01/28/2019 9:00 AM Clinical Indication: Comparison: None. Technique: 5 mm axial tomographic images were obtained of the head without contrast. These were viewed on brain and bone windows. One or more of the following dose reduction techniques were utilized: Automated exposure control (AEC), Adjustment of mA and/or kV according to patient size, Use of iterative reconstruction technique such as ASiR, CT scan done according to ALARA and image gently/image wisely Findings: Mild generalized cerebral and cerebellar volume loss. Mild nonspecific periventricular hypoattenuation, most commonly seen with chronic small vessel ischemic disease. No intra- or extra-axial mass or fluid collection. No acute hemorrhage. The ventricles are normal in size, shape, and morphology. The soriano-white matter junction is normal. The subarachnoid cisterns are patent. The visualized paranasal sinuses are normal. The visualized portions of the orbits and globes are normal. The mastoid air cells are clear. The photographic technician topogram shows no lytic lesion or fracture. Impression: No acute intracranial process. Mild cerebral volume loss. Mild chronic small vessel ischemic disease. Electronically signed by: Baron Rausch MD (01/28/2019 11:14 AM) [facility]
--- NOTE | 2019-01-28 12:52 | NUR ---
Patient is in the dining room for assessment and medication. He is flat, withdrawn, sitting with his head on the table until his breakfast tray is placed in front of him. He continues to have significant tremors. He was calm, cooperative and compliant, took all of his medications whole. He did withdraw back to his room after m Addendum: 01/28/19 at 1256 by KIA FELIX RN RN meals, was resistant to coming out of his room. Did come into the day room briefly after lunch. No agitation. Denies pain or discomfort. Denies SI.
[2019-01-28 15:41] VITALS: BP 90/36
[2019-01-28] MEDS: DONEPEZIL HCL 10 MG TABLET PO SCH (20:29)
[2019-01-28] MEDS: SIMVASTATIN 20 MG TABLET PO SCH (20:31)
[2019-01-28] MEDS: traZODone 100 MG TABLET. PO SCH (20:31)
[2019-01-28] MEDS: MAGNESIUM HYDROXIDE 2,400 MG/30 ML ORAL.SUSP. PO PRN (20:35)
--- NOTE | 2019-01-28 21:13 | NUR ---
Pt withdrawn to room, lying in bed at shift change. Pt calm, interactive w/staff when approached. Pt cooperative with assessment and compliant with medications administered whole. Pt c/o constipation, having not had a BM in 5 days. PRN MOM administered with HS medications.
--- NOTE | 2019-01-29 01:31 | PN ---
DATE: 01/28/2019 SUBJECTIVE: The patient was seen today, met with the staff, chart reviewed. The patient continues to have problems, hyperactive, restless, paranoid, demanding and also complaining of involuntary movements and wanting to stay in bed. OBSERVATION: VITAL SIGNS: Temperature 97.7, blood pressure 129/70, pulse 116, respirations 20, O2 sat 99%. Slept about 8 hours last night. The patient's appetite is fair. The patient was also seen by Dr. Goncalves and requested for a CT scan because the patient's continued problems with his involuntary movements. The patient is also concrete with his thinking. The patient has difficulty verbalizing his feelings, mostly focused on his physical complaints. The patient is also exhibiting poor impulse control and low frustration tolerance. MEDICATIONS: The patient's current medications include clozapine 50 mg at night, 200 mg b.i.d. and 25 mg daily, lithium carbonate 450 mg b.i.d., trazodone 100 mg at night, and Aricept 10 mg at night. The patient is also on Celexa 40 mg daily and Haldol 5 mg q. 6 hours p.r.n. ASSESSMENT: Schizoaffective disorder, bipolar type; anxiety disorder, unspecified. PLAN: To continue with the treatment. LENGTH OF STAY: 5-7 days. JED ESTEVEZ MD DR: AISHWARYA/merced JOB#: [id number] / [id number]
[2019-01-29] MEDS: LEVOTHYROXINE 100 MCG TABLET PO SCH (04:56)
[2019-01-29 06:14] VITALS: BP 158/81
[2019-01-29] MEDS: INSULIN LISPRO 300 UNITS/3 ML VIAL. SQ SCH ×3 (08:00→17:00)
[2019-01-29] MEDS: LUBIPROSTONE 24 MCG CAPSULE PO SCH ×2 (08:16→17:22)
[2019-01-29] MEDS: cloZAPine 100 MG TABLET PO SCH ×2 (08:16→20:12)
[2019-01-29] MEDS: PANTOPRAZOLE 40 MG TABLET. PO SCH (08:16)
[2019-01-29] MEDS: MEGESTROL 400 MG/10 ML ORAL.SUSP. PO SCH ×2 (08:16→20:12)
[2019-01-29] MEDS: cloZAPine 25 MG TABLET PO SCH ×2 (08:16→20:13)
[2019-01-29] MEDS: glipiZIDE ER 2.5 MG TAB.ER.24 PO SCH (08:17)
[2019-01-29] MEDS: METOPROLOL SUCC 24HR ER 25 MG TAB.ER.24H. PO SCH (08:17)
[2019-01-29] MEDS: BENZTROPINE MESYLATE 1 MG TABLET PO SCH ×2 (08:17→20:13)
[2019-01-29] MEDS: CITALOPRAM 20 MG TABLET. PO SCH (08:17)
[2019-01-29] MEDS: LITHIUM CARBONATE 300 MG TABLET PO SCH ×2 (08:17→20:13)
[2019-01-29] MEDS: INSULIN GLARGINE SYRINGE. SQ SCH ×2 (08:50→20:14)
--- NOTE | 2019-01-29 14:57 | NUR ---
Patient is in the dining room for assessment and medication. He is flat, withdrawn, sitting with his head on the table until his breakfast tray is placed in front of him. He continues to have significant tremors. He can be very demanding, especially when it comes to food and drink. Repeatedly asking for more food, more drinks, etc. When he is not eating, he lays with his head on the table or retreats to his room. Resistant to redirection. No complaints of pain or discomfort. Denies SI.
[2019-01-29 16:03] VITALS: BP 129/83
[2019-01-29] MEDS: DONEPEZIL HCL 10 MG TABLET PO SCH (20:12)
[2019-01-29] MEDS: SIMVASTATIN 20 MG TABLET PO SCH (20:13)
[2019-01-29] MEDS: traZODone 100 MG TABLET. PO SCH (20:13)
--- NOTE | 2019-01-29 23:33 | NUR ---
Pt sitting quietly in the day room, resting his head on a table, at shift change. Pt calm, interactive when approached but stays withdrawn to himself. Pt cooperative with assessment and compliant with medications administered whole.
--- NOTE | 2019-01-30 01:22 | PN ---
DATE: 01/29/2019 SUBJECTIVE: The patient was seen today, met with the staff, chart reviewed. The patient continues to be restless, hyperactive at times, still paranoid. The patient also showing marked blunting of affect. The patient is also exhibiting mild cognitive deficits. OBSERVATION: VITAL SIGNS: Temperature 98.1, blood pressure 158/81, pulse 81, respirations 18, O2 sat 92%. Slept about 8 hours last night. The patient continued to isolate himself, irritable and fuentes, does want to have any interaction with the staff or other residents. CURRENT MEDICATIONS: Include clozapine 50 mg at night, 200 mg b.i.d. and 25 mg daily; lithium carbonate 450 mg b.i.d.; trazodone 100 mg at night; Aricept 10 mg at night. The patient is also on Celexa 40 mg daily and Haldol 5 mg q. 6 hours p.r.n. LABORATORY DATA: The patient's lab reviewed. ASSESSMENT: 1. Schizoaffective disorder, bipolar type. 2. Anxiety disorder, unspecified. PLAN: To continue with the treatment. LENGTH OF STAY: 4-5 days. JED ESTEVEZ MD DR: AISHWARYA/merced JOB#: [id number] / [id number]
[2019-01-30] MEDS: LEVOTHYROXINE 100 MCG TABLET PO SCH (05:22)
[2019-01-30 06:13] VITALS: BP 136/90
--- NOTE | 2019-01-30 07:00 | NUR ---
Last night patient ate his entire dinner tray and drank coffee, tea and milk. He then asked for two hamburgers to be brought up from the kitchen (he didn't get them) and ate ice cream as well as pudding. He was then asking those seated around him if he could have their food. It was reported that at HS snack he ate 3 puddings and was asking for more. He has been eating this way most of the week. Patient is on Megace to stimulate his appetite.
[2019-01-30] MEDS: MEGESTROL 400 MG/10 ML ORAL.SUSP. PO SCH ×2 (07:40→17:58)
--- NOTE | 2019-01-30 07:40 | NUR ---
Held Megace r/t patients voracious appetite. Will consult Dr. Vera about discontinuing it as patient is now eating well.
[2019-01-30] MEDS: cloZAPine 100 MG TABLET PO SCH ×2 (08:14→20:54)
[2019-01-30] MEDS: cloZAPine 25 MG TABLET PO SCH ×2 (08:14→20:53)
[2019-01-30] MEDS: PANTOPRAZOLE 40 MG TABLET. PO SCH (08:14)
[2019-01-30] MEDS: LUBIPROSTONE 24 MCG CAPSULE PO SCH ×2 (08:15→17:17)
[2019-01-30] MEDS: LITHIUM CARBONATE 300 MG TABLET PO SCH ×2 (08:15→20:53)
[2019-01-30] MEDS: glipiZIDE ER 2.5 MG TAB.ER.24 PO SCH (08:15)
[2019-01-30] MEDS: BENZTROPINE MESYLATE 1 MG TABLET PO SCH ×2 (08:15→20:53)
[2019-01-30] MEDS: CITALOPRAM 20 MG TABLET. PO SCH (08:15)
[2019-01-30] MEDS: METOPROLOL SUCC 24HR ER 25 MG TAB.ER.24H. PO SCH (08:15)
[2019-01-30] MEDS: INSULIN LISPRO 300 UNITS/3 ML VIAL. SQ SCH ×3 (08:20→17:16)
[2019-01-30] MEDS: INSULIN GLARGINE SYRINGE. SQ SCH ×2 (08:21→20:57)
[2019-01-30] MEDS: MAGNESIUM HYDROXIDE 2,400 MG/30 ML ORAL.SUSP. PO PRN (08:30)
--- NOTE | 2019-01-30 08:32 | NUR ---
Patient has abdominal distention and cannot tell when his last bowel movement was. PRN MOM given with a full glass of water for constipation. Will continue to monitor.
--- NOTE | 2019-01-30 10:13 | NUR ---
Patient in dining room at breakfast asking for many cartons of milk. Compliant with medications, when asked if he was in pain he replied "No pain, just anguish" but refused to discuss it when asked questions by this nurse. Patient asked if he could return to his room when he finished his meal. Patient was then observed laying face down in his bed as is his usual.
[2019-01-30 16:55] VITALS: BP 115/61
--- NOTE | 2019-01-30 18:03 | NUR ---
Dr. Vera decreased Megace to once daily. Patient had returned to bed when new order was received and refused med. Patient continues to demand more food at meals and drank 7 drinks with dinner and was asking for more water/milk/tea. He became angry when he was told he had already had enough to drink and left the dining room.
[2019-01-30] MEDS: SIMVASTATIN 20 MG TABLET PO SCH (20:53)
[2019-01-30] MEDS: traZODone 100 MG TABLET. PO SCH (20:53)
[2019-01-30] MEDS: DONEPEZIL HCL 10 MG TABLET PO SCH (20:53)
--- NOTE | 2019-01-30 23:39 | NUR ---
Pt withdrawn to his room all evening. Pt flat, irritable when asked questions; however compliant with whole medications. States that he has not had a BM yet today.
--- NOTE | 2019-01-30 23:52 | PN ---
DATE: 01/30/2019 SUBJECTIVE: The patient was seen today, met with the staff, chart reviewed. The patient continues to have issues, problems with behaviors, hyperactive, restless, still paranoid, suspicious. The patient also is showing marked blunting of affect. The patient is also exhibiting some cognitive deficits. OBSERVATION: VITAL SIGNS: Temperature 97.5, blood pressure 136/90, pulse 115, respirations 18, O2 sat 95%. GENERAL: Slept about 7 hours last night. The patient's appetite is fair. LABORATORY DATA: The patient's lab reviewed. Awaiting for placement. MEDICATIONS: The patient's current medications include clozapine 50 mg at night, 200 mg b.i.d. and 25 mg daily, lithium carbonate 450 mg b.i.d., trazodone 100 mg at night and Aricept 10 mg at night. The patient is also on Celexa 40 mg daily and Haldol 5 mg q. 6 hours p.r.n. ASSESSMENT: 1. Schizoaffective disorder, bipolar type. 2. Anxiety disorder, unspecified. PLAN: To continue with the treatment. LENGTH OF STAY: 4-5 days. JED ESTEVEZ MD DR: AISHWARYA/merced JOB#: [id number] / [id number]
[2019-01-31] MEDS: LEVOTHYROXINE 100 MCG TABLET PO SCH (05:38)
[2019-01-31 05:59] VITALS: BP 115/58
[2019-01-31 07:17] LABS: BASO % 0 % (0-3); EOS % 0 % (0-3); HEMATOCRIT 44.9 % (39.0-53.0); HEMOGLOBIN 14.4 g/dL (13.0-17.5); LYMPH # 3.1 x10^3/uL (1.0-4.8); LYMPH % 17 % (24-48); MEAN CORPUSCULAR HEMOGLOBIN 29 pg (25-35); MEAN CORPUSCULAR HGB CONC 32 g/dL (31-37); MEAN CORPUSCULAR VOLUME 91 fL (79-100); MONO # 1.3 x10^3/uL (0.0-1.1); MONO % 7 % (0-9); NEUT # 13.4 x10^3uL (1.8-7.7); NEUT % 75 % (31-73); PLATELET COUNT 310 x10^3/uL (140-400); RED BLOOD COUNT 4.93 x10^6/uL (4.30-5.70); RED CELL DISTRIBUTION WIDTH 14.8 % (11.5-14.5); WHITE BLOOD COUNT 17.8 x10^3/uL (4.0-11.0)
[2019-01-31 07:30] LABS: ALBUMIN 3.6 g/dL (3.4-5.0); ALBUMIN/GLOBULIN RATIO 1.2 (1.0-1.7); CREATININE 1.6 mg/dL (0.7-1.3); GFR 44.2; POTASSIUM 4.3 mmol/L (3.5-5.1); TOTAL BILIRUBIN 0.6 mg/dL (0.2-1.0); TOTAL PROTEIN 6.6 g/dL (6.4-8.2)
[2019-01-31 07:49] LABS: % ATYL 1 % (0-0); % BANDS 1 % (0-9); % LYMPHS 20 % (24-48); % MONOS 7 % (0-10); % SEGS 71 % (35-66); OVALOCYTES OCC; PLT ESTIMATE ADEQUATE (ADEQUATE)
[2019-01-31] MEDS: MEGESTROL 400 MG/10 ML ORAL.SUSP. PO SCH (08:14)
[2019-01-31] MEDS: BENZTROPINE MESYLATE 1 MG TABLET PO SCH ×2 (08:14→21:05)
[2019-01-31] MEDS: cloZAPine 100 MG TABLET PO SCH ×2 (08:15→21:05)
[2019-01-31] MEDS: CITALOPRAM 20 MG TABLET. PO SCH (08:15)
[2019-01-31] MEDS: METOPROLOL SUCC 24HR ER 25 MG TAB.ER.24H. PO SCH (08:15)
[2019-01-31] MEDS: LUBIPROSTONE 24 MCG CAPSULE PO SCH ×2 (08:15→17:26)
[2019-01-31] MEDS: glipiZIDE ER 2.5 MG TAB.ER.24 PO SCH (08:15)
[2019-01-31] MEDS: cloZAPine 25 MG TABLET PO SCH ×2 (08:15→21:05)
[2019-01-31] MEDS: PANTOPRAZOLE 40 MG TABLET. PO SCH (08:16)
[2019-01-31] MEDS: LITHIUM CARBONATE 300 MG TABLET PO SCH ×2 (08:16→21:06)
[2019-01-31] MEDS: INSULIN GLARGINE SYRINGE. SQ SCH ×2 (09:41→21:08)
[2019-01-31] MEDS: INSULIN LISPRO 300 UNITS/3 ML VIAL. SQ SCH ×3 (09:41→17:25)
--- NOTE | 2019-01-31 10:31 | NUR ---
Patient continues to ask for multiple cups of water with meal and ask for boost with each meal as well. Maternity Floor Supervisor asked him if he wanted double portions and he declined. Patient returned to room after breakfast and laid back down in bed. Patients WBC 17.8 and BUN and CR are elevated as determined by labs this morning. Attempts have been made to obtain urine sample but patient had voided previously to attempts. Patient has dry, non-productive cough. Will discuss with Dr. Vera on rounds.
--- NOTE | 2019-01-31 12:26 | NUR ---
WEEKLY ACTIVITY THERAPY NOTE Date of Admission: 01/10/2019 Date of AT Assessment: 01/14/2019 Goal aimed: to increase relaxation techniques and leisure engagement Initial goal: Pt. will participate in at least five individual or Activity Therapy groups before discharge. Goal changed 01/24: Pt. will participate in at least one individual Activity Therapy group before discharge. Weekly progress towards goal: on track Group participation level: zero Weekly highlights: around day room, calmly on Monday and Monday Behaviors observed: when in day room-at quietly with his head resting on the table. He was near panicking, sweaty, distressed. Otherwise, withdrawn and difficult to engage Plan: no change to goal Beneficial adaptations:
[2019-01-31] MEDS: MAGNESIUM HYDROXIDE 2,400 MG/30 ML ORAL.SUSP. PO PRN (12:35)
--- NOTE | 2019-01-31 12:49 | NUR ---
Patient given MOM with lunch per his report of constipation. He reports that the MOM given yesterday was not effective, nor was the prune juice at breakfast.
--- NOTE | 2019-01-31 13:01 | NUR ---
Patient became agitated by peer at lunch. He yelled "get away from me" and when peer did not leave he became more agitated. Staff ushered peer away from patients table. Patient returned to room immediately after lunch and went back to bed.
[2019-01-31 13:06] LABS: BILIRUBIN,URINE NEG (NEG); CLARITY,URINE CLEAR; COLOR,URINE YELLOW; GLUCOSE,URINE 100 mg/dL (NEG); NITRITE,URINE NEG (NEG); UROBILINOGEN,URINE 0.2 mg/dL (0.2 mg/dL)
[2019-01-31 13:16] LABS: BACTERIA,URINE 0 /HPF (0-FEW); RBC,URINE RARE /HPF (0-2); SQUAMOUS EPITHELIAL CELL,UR OCC /LPF; WBC,URINE OCC /HPF (0-4)
[2019-01-31 13:17] LABS: HYALINE CASTS, URINE OCC /HPF
--- NOTE | 2019-01-31 15:42 | NUR ---
Spoke to Dr. Vera regarding patients lab work. Received STAT orders for CK, Lactic Acid, Bladder Scan, CT abdomen w/o contrast, chest xray. Bladder scan revealed >15ml in bladder. Patient had urinated in toilet before nurse entered the room. Addendum: 01/31/19 at 1659 by BEAN AGOSTO RN CT abdomen and chest X-ray resulted, lactic acid normal, CK normal. Dr. Vera aware. Received TO for IV fluids. / NS @ 100mls/hour.
[2019-01-31 16:00] VITALS: BP 91/58
--- NOTE | 2019-01-31 16:02 | NUR ---
SIMI contacted pt PA, Elizabeth to let her know that pt is having a lot of medical tests ran as he is really shaky and his labs returned as elevated. SIMI will plan to inform pt PA once more information and the game plan is known.
--- NOTE | 2019-01-31 16:39 | RAD ---
Indication: Elevated WBC TECHNIQUE:Portable AP chest X-ray COMPARISON: None FINDINGS: Heart is normal in size. Lungs are clear. No pneumothorax or pleural effusion. Visualized bony thorax within normal limits. IMPRESSION: No acute pulmonary process. PQRS Compliance statement: One or more of the following individualized dose reduction techniques were utilized for this examination: 1. Automated exposure control. 2. Adjustment of the mA and/or kV according to patient size. 3. Use of iterative reconstruction technique. INDICATION: Abdominal pain elevated labs. TECHNIQUE: CT of the abdomen pelvis without IV contrast with reformats COMPARISON: None FINDINGS: Limited evaluation of solid abdominal and pelvic organs due to lack of IV contrast. Heart is normal in size. No pericardial or pleural effusion. Clear lung bases. Noncontrast appearance of the liver, spleen, pancreas, adrenals within normal limits. Status post cholecystectomy. No nephrolithiasis or hydronephrosis. 1 cm partially exophytic lesion is seen in the interpolar lateral right kidney. No enlarged retroperitoneal or pelvic adenopathy. The prostate and seminal vesicles show no large mass. Large amount of colonic stool burden. No pneumoperitoneum. Urinary bladder demonstrates no radiopaque stone. No suspicious bony lesion. IMPRESSION: Limited evaluation of solid abdominal and pelvic organs due to lack of IV contrast. 1. Large amount of diffuse colonic stool burden, patient may be constipated. 2. Questionable right renal lesion or nonemergent ultrasound of the right kidney recommended. Electronically signed by: Master Busby DO (01/31/2019 4:36 PM) [facility]
[2019-01-31] MEDS: IV 1/2 NORMAL SALINE 1,000 ML IV SCH (18:23)
[2019-01-31] MEDS: SIMVASTATIN 20 MG TABLET PO SCH (21:05)
[2019-01-31] MEDS: traZODone 100 MG TABLET. PO SCH (21:05)
[2019-01-31] MEDS: DONEPEZIL HCL 10 MG TABLET PO SCH (21:06)
--- NOTE | 2019-01-31 22:39 | NUR ---
Nsg Note: Patient in room at time of medication pass and assessments. Patient very anxious about having IV and not knowing what is specifically going on with him at this time. Patient more fidgety than usual and on edge. Took medications; compliant and cooperative. No other notable behaviors at this time.
--- NOTE | 2019-02-01 00:12 | PN ---
DATE: 01/31/2019 SUBJECTIVE: The patient was seen today, met with the staff, chart reviewed. Staff reports no major problems except he isolates himself wants to stay in bed. He is compliant with the medications. The patient tend to be irritable and fuentes. The patient also impatient, exhibiting poor impulse control. OBSERVATION: VITAL SIGNS: Temperature 98.4, blood pressure 115/58, pulse 90, respirations 20, O2 sat 93%. GENERAL: Slept about 8 hours last night. The patient's appetite is fair. LABORATORY DATA: The patient's lab reviewed. MEDICATIONS: The patient's current medications include clozapine 50 mg at night, 200 mg b.i.d. and 25 mg daily, lithium carbonate 450 mg b.i.d., trazodone 100 mg at night and Aricept 10 mg at night. The patient is also on Celexa 40 mg daily and Haldol 5 mg q. 6 hours p.r.n. ASSESSMENT: 1. Schizoaffective disorder, bipolar type. 2. Anxiety disorder, unspecified. PLAN: To continue with the treatment. LENGTH OF STAY: 4-5 days. JED ESTEVEZ MD DR: AISHWARYA/merced JOB#: [id number] / [id number]
[2019-02-01] MEDS: IV 1/2 NORMAL SALINE 1,000 ML IV SCH (03:00)
[2019-02-01] MEDS: LEVOTHYROXINE 100 MCG TABLET PO SCH (05:13)
[2019-02-01 06:05] VITALS: BP 151/91
[2019-02-01] MEDS: INSULIN LISPRO 300 UNITS/3 ML VIAL. SQ SCH ×3 (08:00→17:00)
[2019-02-01] MEDS: MEGESTROL 400 MG/10 ML ORAL.SUSP. PO SCH (08:51)
[2019-02-01] MEDS: CITALOPRAM 20 MG TABLET. PO SCH (08:51)
[2019-02-01] MEDS: BENZTROPINE MESYLATE 1 MG TABLET PO SCH ×2 (08:51→21:03)
[2019-02-01] MEDS: METOPROLOL SUCC 24HR ER 25 MG TAB.ER.24H. PO SCH (08:51)
[2019-02-01] MEDS: glipiZIDE ER 2.5 MG TAB.ER.24 PO SCH (08:52)
[2019-02-01] MEDS: cloZAPine 25 MG TABLET PO SCH ×2 (08:52→21:03)
[2019-02-01] MEDS: LUBIPROSTONE 24 MCG CAPSULE PO SCH ×2 (08:52→17:00)
[2019-02-01] MEDS: LITHIUM CARBONATE 300 MG TABLET PO SCH ×2 (08:52→21:03)
[2019-02-01] MEDS: cloZAPine 100 MG TABLET PO SCH ×2 (08:52→21:03)
[2019-02-01] MEDS: PANTOPRAZOLE 40 MG TABLET. PO SCH (08:52)
[2019-02-01] MEDS: INSULIN GLARGINE SYRINGE. SQ SCH ×2 (09:00→21:00)
[2019-02-01] MEDS ORDERED: MAGNESIUM CITRATE 296 ML SOLUTION. PO ONE (09:30)
[2019-02-01 15:34] VITALS: BP 124/71
[2019-02-01] MEDS: DONEPEZIL HCL 10 MG TABLET PO SCH (21:03)
[2019-02-01] MEDS: traZODone 100 MG TABLET. PO SCH (21:03)
[2019-02-01] MEDS: SIMVASTATIN 20 MG TABLET PO SCH (21:03)
--- NOTE | 2019-02-02 01:21 | PN ---
DATE: 02/01/2019 SUBJECTIVE: The patient was seen today, met with the staff, chart reviewed. The patient's behavior remains the same, stays in bed most of the time, withdrawn, decreased psychomotor activity, also has tremors and some involuntary movements and also myoclonic jerks. Staff reports no major problems. OBSERVATION: VITAL SIGNS: Temperature 98, blood pressure 151/91, pulse 104, respiration 18, O2 sat 97%. Slept about 8 hours last night. LABORATORY DATA: The patient's lab reviewed. The patient's CT scan showed no acute intracranial processes except for mild cerebral volume loss, mild chronic small vessel ischemic disease. MEDICATIONS: The patient's current medications include clozapine 50 mg at night, 200 mg b.i.d. and 25 mg daily, lithium carbonate 450 mg b.i.d., trazodone 100 mg at night, Aricept 10 mg at night and Celexa 10 mg daily. The patient is also on Haldol 5 mg q. 6 hours p.r.n. The patient is not having any side effects except for the involuntary movements, also tremors. ASSESSMENT: 1. Schizoaffective disorder, bipolar type. 2. Anxiety disorder, unspecified. PLAN: The patient will continue with the current treatment plan, except that the patient's lithium will be decreased to 300 mg in the morning and 450 at night. LENGTH OF STAY: 4-5 days. JED ESTEVEZ MD DR: AISHWARYA/merced JOB#: [id number] / [id number]
--- NOTE | 2019-02-02 01:46 | NUR ---
Nursing Note Pt in bed at shift change, smiles on approach, is cooperative with meds. Denies complaints this PM states his tremors are actually improved, his upper extremities shake so violently it looks like he could hit himself in the head. Seem to be undetectable while sleeping.
[2019-02-02] MEDS: LEVOTHYROXINE 100 MCG TABLET PO SCH (05:42)
[2019-02-02 06:15] VITALS: BP 163/105
[2019-02-02 07:46] LABS: ALBUMIN 3.2 g/dL (3.4-5.0); ALBUMIN/GLOBULIN RATIO 0.9 (1.0-1.7); CALCIUM 9.4 mg/dL (8.5-10.1); CREATININE 1.6 mg/dL (0.7-1.3); GFR 44.2; POTASSIUM 4.4 mmol/L (3.5-5.1); TOTAL BILIRUBIN 0.4 mg/dL (0.2-1.0); TOTAL PROTEIN 6.6 g/dL (6.4-8.2)
[2019-02-02 07:48] LABS: BASO % 0 % (0-3); EOS % 0 % (0-3); HEMATOCRIT 42.8 % (39.0-53.0); HEMOGLOBIN 13.8 g/dL (13.0-17.5); LYMPH # 2.1 x10^3/uL (1.0-4.8); LYMPH % 18 % (24-48); MEAN CORPUSCULAR HEMOGLOBIN 29 pg (25-35); MEAN CORPUSCULAR HGB CONC 32 g/dL (31-37); MEAN CORPUSCULAR VOLUME 91 fL (79-100); MONO # 0.8 x10^3/uL (0.0-1.1); MONO % 7 % (0-9); NEUT % 76 % (31-73); PLATELET COUNT 257 x10^3/uL (140-400); RED BLOOD COUNT 4.71 x10^6/uL (4.30-5.70); RED CELL DISTRIBUTION WIDTH 14.9 % (11.5-14.5); WHITE BLOOD COUNT 11.9 x10^3/uL (4.0-11.0)
[2019-02-02] MEDS: LUBIPROSTONE 24 MCG CAPSULE PO SCH ×2 (07:56→17:00)
[2019-02-02] MEDS: CITALOPRAM 20 MG TABLET. PO SCH (07:57)
[2019-02-02] MEDS: PANTOPRAZOLE 40 MG TABLET. PO SCH (07:57)
[2019-02-02] MEDS: cloZAPine 100 MG TABLET PO SCH ×2 (07:58→20:56)
[2019-02-02] MEDS: cloZAPine 25 MG TABLET PO SCH ×2 (07:59→20:56)
[2019-02-02] MEDS: CHOLECALCIFEROL (VITAMIN D3) 50,000 UNIT CAPSULE PO SCH (07:59)
[2019-02-02] MEDS: METOPROLOL SUCC 24HR ER 25 MG TAB.ER.24H. PO SCH (07:59)
[2019-02-02] MEDS: MEGESTROL 400 MG/10 ML ORAL.SUSP. PO SCH (07:59)
[2019-02-02] MEDS: glipiZIDE ER 2.5 MG TAB.ER.24 PO SCH (07:59)
[2019-02-02] MEDS: LITHIUM CARBONATE 300 MG TABLET PO SCH ×2 (07:59→20:57)
[2019-02-02] MEDS: BENZTROPINE MESYLATE 1 MG TABLET PO SCH ×2 (08:00→20:56)
[2019-02-02] MEDS: INSULIN LISPRO 300 UNITS/3 ML VIAL. SQ SCH ×3 (08:01→17:00)
[2019-02-02] MEDS: INSULIN GLARGINE SYRINGE. SQ SCH ×2 (09:00→21:03)
[2019-02-02 10:46] LABS: % ATYL 4 % (0-0); % BANDS 3 % (0-9); % LYMPHS 11 % (24-48); % MONOS 8 % (0-10); % MYELOS 1 % (0-0); % SEGS 73 % (35-66)
[2019-02-02 10:47] LABS: PLT ESTIMATE ADEQUATE (ADEQUATE)
[2019-02-02 10:48] LABS: OVALOCYTES FEW
[2019-02-02 10:49] LABS: BURR CELLS FEW
[2019-02-02 15:39] VITALS: BP 152/88
--- NOTE | 2019-02-02 16:04 | NUR ---
Pt up for meals. In room rest of times. Still having significant tremors. White count better today. Pt drinking several glasses of fluids at each meal. Creatinine unchanged.
[2019-02-02] MEDS: DONEPEZIL HCL 10 MG TABLET PO SCH (20:55)
[2019-02-02] MEDS: SIMVASTATIN 20 MG TABLET PO SCH (20:55)
[2019-02-02] MEDS: traZODone 100 MG TABLET. PO SCH (20:56)
--- NOTE | 2019-02-03 01:22 | PN ---
DATE: 02/02/2019 SUBJECTIVE: The patient was seen today, met with the staff, chart reviewed. The patient's behavior remains the same. He stays in bed most of the day. He does not interact with anyone, social isolation, but gets up for lunch and dinner and breakfast. The patient is able to communicate fairly well. The patient is not admitting to having any major problems except feeling tired, wanting to stay in bed. The patient has not exhibited any major behavior problems. OBSERVATION: VITAL SIGNS: Temperature 98, blood pressure 151/91, the patient's pulse 104, respiration 18, O2 sat 97%. GENERAL: Slept about 8 hours last night. The patient's appetite is fair. LABORATORY DATA: The patient's lab reviewed. MEDICATIONS: The patient's current medications include clozapine 50 mg at night, 25 mg daily and 200 mg b.i.d.; lithium carbonate was decreased to 300 mg in the morning and 450 at night because of increased tremors. The patient is also on trazodone 100 mg at night, Aricept 10 mg at night and Celexa 10 mg daily. The patient is also on Haldol 5 mg q. 6 hours p.r.n. ASSESSMENT: 1. Schizoaffective disorder, bipolar type. 2. Anxiety disorder, unspecified. PLAN: To continue with the treatment. The patient is still waiting for placement. LENGTH OF STAY: 4-5 days. JED ESTEVEZ MD DR: AISHWARYA/merced JOB#: [id number] / [id number]
--- NOTE | 2019-02-03 04:00 | NUR ---
Nursing Note The patient was located in his room for his assessment and medication pass. The patient was calm and cooperative during interactions and took his medication whole. The patient is currently sleeping in his room.
[2019-02-03 05:53] VITALS: BP 160/89
[2019-02-03] MEDS: MAGNESIUM HYDROXIDE 2,400 MG/30 ML ORAL.SUSP. PO PRN (06:06)
[2019-02-03] MEDS: LEVOTHYROXINE 100 MCG TABLET PO SCH (06:07)
--- NOTE | 2019-02-03 06:27 | NUR ---
Nursing Note The patient received PRN MOM and prune juice with morning meds R/T no reported BM this shift.
[2019-02-03] MEDS: INSULIN LISPRO 300 UNITS/3 ML VIAL. SQ SCH ×3 (08:00→17:00)
[2019-02-03] MEDS: MEGESTROL 400 MG/10 ML ORAL.SUSP. PO SCH (08:06)
[2019-02-03] MEDS: glipiZIDE ER 2.5 MG TAB.ER.24 PO SCH (08:07)
[2019-02-03] MEDS: PANTOPRAZOLE 40 MG TABLET. PO SCH (08:07)
[2019-02-03] MEDS: BENZTROPINE MESYLATE 1 MG TABLET PO SCH ×2 (08:07→20:46)
[2019-02-03] MEDS: LUBIPROSTONE 24 MCG CAPSULE PO SCH ×2 (08:07→17:00)
[2019-02-03] MEDS: cloZAPine 25 MG TABLET PO SCH ×2 (08:07→20:45)
[2019-02-03] MEDS: cloZAPine 100 MG TABLET PO SCH ×2 (08:08→20:45)
[2019-02-03] MEDS: LITHIUM CARBONATE 300 MG TABLET PO SCH ×2 (08:08→20:46)
[2019-02-03] MEDS: METOPROLOL SUCC 24HR ER 25 MG TAB.ER.24H. PO SCH (08:08)
[2019-02-03] MEDS: CITALOPRAM 20 MG TABLET. PO SCH (08:09)
[2019-02-03] MEDS ORDERED: MAGNESIUM CITRATE 296 ML SOLUTION. PO PRN (08:30)
[2019-02-03] MEDS: INSULIN GLARGINE SYRINGE. SQ SCH ×2 (09:00→20:59)
[2019-02-03 16:14] VITALS: BP 93/62
--- NOTE | 2019-02-03 17:59 | NUR ---
Pt up for meals. withdrawn to room. Still has significant tremors with any movement. Has sat himself on floor several times stating he can't walk. When pt leaves DR alone after meal, does not have any difficulty returning to room. Has been compliant with meds. Constantly asks for several drinks during meal.
[2019-02-03] MEDS: SIMVASTATIN 20 MG TABLET PO SCH (20:45)
[2019-02-03] MEDS: DONEPEZIL HCL 10 MG TABLET PO SCH (20:45)
[2019-02-03] MEDS: traZODone 100 MG TABLET. PO SCH (20:46)
--- NOTE | 2019-02-04 00:40 | NUR ---
t has been his room this entire shift. When awaken for meds his tremors were so strong that he needed help holding his cup to avoid spilling. He denies having recent BM in spite of recent doses of meds to relive constipation. He requested prune juice at then wanted more after gulping it down.
[2019-02-04] MEDS: LEVOTHYROXINE 100 MCG TABLET PO SCH (05:10)
[2019-02-04 05:31] VITALS: BP 150/80
[2019-02-04] MEDS: INSULIN LISPRO 300 UNITS/3 ML VIAL. SQ SCH ×3 (08:00→18:24)
[2019-02-04] MEDS: INSULIN GLARGINE SYRINGE. SQ SCH ×2 (08:07→19:57)
[2019-02-04] MEDS: MEGESTROL 400 MG/10 ML ORAL.SUSP. PO SCH (08:08)
[2019-02-04] MEDS: PANTOPRAZOLE 40 MG TABLET. PO SCH (08:09)
[2019-02-04] MEDS: LITHIUM CARBONATE 300 MG TABLET PO SCH ×2 (08:09→19:55)
[2019-02-04] MEDS: cloZAPine 25 MG TABLET PO SCH ×2 (08:09→19:55)
[2019-02-04] MEDS: cloZAPine 100 MG TABLET PO SCH ×2 (08:09→19:55)
[2019-02-04] MEDS: LUBIPROSTONE 24 MCG CAPSULE PO SCH ×2 (08:10→18:25)
[2019-02-04] MEDS: BENZTROPINE MESYLATE 1 MG TABLET PO SCH ×2 (08:10→19:55)
[2019-02-04] MEDS: CITALOPRAM 20 MG TABLET. PO SCH (08:10)
[2019-02-04] MEDS: glipiZIDE ER 2.5 MG TAB.ER.24 PO SCH (08:10)
[2019-02-04] MEDS: METOPROLOL SUCC 24HR ER 25 MG TAB.ER.24H. PO SCH (08:10)
--- NOTE | 2019-02-04 09:59 | PN ---
DATE: SUBJECTIVE: The patient was seen today, met with the staff, chart reviewed. His behavior remains the same. He still stays in bed, not wanting to get up. The patient is still irritable, fuentes, very negative. The patient states he is not going to get better and states he is going to . The patient states he is not able to control his body anymore because of all the shakes, myoclonic jerks and involuntary movements. OBJECTIVE: VITAL SIGNS: Temperature 97.1, blood pressure 140/89, pulse 95, respirations 20, O2 sat 92%. GENERAL: Slept about 7 hours last night. The patient's appetite is fair. The patient is not participating in any activities, does not interact with the staff. The patient also has some blunting of affect. The patient also has concrete thinking, having problems with impulse control or low frustration tolerance. The patient at times also exhibits some speech impediment. CURRENT MEDICATIONS: The patient takes clozapine 50 mg at night, 25 mg daily and 200 mg b.i.d.; lithium carbonate 300 mg in the morning and 450 at night. The patient is also on trazodone 100 mg at night, Aricept 10 mg at night and Celexa 10 mg daily. He is also on Haldol 5 mg q.6 hours p.r.n. ASSESSMENT: 1. Schizoaffective disorder, bipolar type. 2. Anxiety disorder, unspecified. PLAN: To continue with the treatment. The patient is still awaiting for placement. JED ESTEVEZ MD DR: AISHWARYA/merced JOB#: [id number] / [id number]
--- NOTE | 2019-02-04 12:47 | NUR ---
SIMI received a voice mail from pt PA, Elizabeth, who wanted to see if the psychiatrist would be able to complete a form stating pt need for continued admission. She has a form that he would just have to fill out. SIMI emailed Elizabeth to let her know that SIMI will work on that and have it to her no later than Monday.
[2019-02-04 15:32] VITALS: BP 114/70
--- NOTE | 2019-02-04 18:30 | NUR ---
Pt compliant with meds and assessment. Pt extremely anxious, went back to bed after breakfast. When staff went to get pt up for lunch, pt threw himself on the floor because he wasn't wanting to get up and go to the dining room. Blood sugar at lunchtime was 48. Pt also seems extremely thirsty. After lunch, pt taken to day room, sat for a story read by Mary in activities. Pt remained in day room until dinnertime.
[2019-02-04] MEDS: SIMVASTATIN 20 MG TABLET PO SCH (19:55)
[2019-02-04] MEDS: DONEPEZIL HCL 10 MG TABLET PO SCH (19:56)
[2019-02-04] MEDS: traZODone 100 MG TABLET. PO SCH (19:56)
--- NOTE | 2019-02-04 23:04 | NUR ---
Pt withdrawn to room, lying in bed at shift change. Pt calm and interactive when approached. Pt cooperative with assessment and compliant with medications administered whole. HS insulin held this evening d/t FSBS 101 and pt had an FSBS of 48 earlier in the day.
--- NOTE | 2019-02-05 00:48 | PN ---
DATE: 02/04/2019 SUBJECTIVE: The patient was seen today, met with the staff, chart reviewed. The patient's behavior remains the same. He is still refusing to participate in activities, wants to stay in bed. The patient also complains of feeling depressed, feeling hopeless. The patient is afraid that he is going to . The patient is concrete with his thinking. Also, angry at times, also marked blunting of affect. The patient is also concrete with his thinking. The patient is not exhibiting any psychotic symptoms. OBSERVATION: VITAL SIGNS: Temperature 97.8, blood pressure 150/80, pulse 62, respirations 20, O2 sat 95%. Slept about 10 hours last night. LABORATORY DATA: The patient's lab reviewed. MEDICATIONS: The patient's current medications include clozapine 50 mg at night, 25 mg daily and 200 mg b.i.d., lithium carbonate 300 mg in the morning and 450 mg at night. He is also on trazodone 100 mg at night, Aricept 10 mg at night, Celexa 10 mg daily. He is also on Haldol 5 mg q. 6 hours p.r.n. ASSESSMENT: Schizoaffective disorder, bipolar type; anxiety disorder, unspecified. PLAN: To continue with the treatment, still awaiting for placement. JED ESTEVEZ MD DR: AISHWARYA/merced JOB#: [id number] / [id number]
[2019-02-05 05:22] VITALS: BP 125/74
[2019-02-05] MEDS: LEVOTHYROXINE 100 MCG TABLET PO SCH (05:43)
[2019-02-05] MEDS: LITHIUM CARBONATE 300 MG TABLET PO SCH ×2 (08:17→20:10)
[2019-02-05] MEDS: MEGESTROL 400 MG/10 ML ORAL.SUSP. PO SCH (08:17)
[2019-02-05] MEDS: METOPROLOL SUCC 24HR ER 25 MG TAB.ER.24H. PO SCH (08:17)
[2019-02-05] MEDS: LUBIPROSTONE 24 MCG CAPSULE PO SCH ×2 (08:17→17:19)
[2019-02-05] MEDS: cloZAPine 100 MG TABLET PO SCH ×2 (08:18→20:11)
[2019-02-05] MEDS: BENZTROPINE MESYLATE 1 MG TABLET PO SCH ×2 (08:18→20:10)
[2019-02-05] MEDS: glipiZIDE ER 2.5 MG TAB.ER.24 PO SCH (08:18)
[2019-02-05] MEDS: PANTOPRAZOLE 40 MG TABLET. PO SCH (08:18)
[2019-02-05] MEDS: CITALOPRAM 20 MG TABLET. PO SCH (08:18)
[2019-02-05] MEDS: cloZAPine 25 MG TABLET PO SCH ×2 (08:18→20:11)
[2019-02-05] MEDS: INSULIN LISPRO 300 UNITS/3 ML VIAL. SQ SCH ×3 (08:21→17:00)
[2019-02-05] MEDS: INSULIN GLARGINE SYRINGE. SQ SCH ×2 (09:00→19:06)
--- NOTE | 2019-02-05 14:13 | NUR ---
Patient in the dining room for medication and assessment. He is at the table with his head down. He remains that way unless there is food in front of him. Otherwise he is compliant with medications and assessments. Very demanding when it comes to food, drink and wanting to return to his room between every meal. He is not agitated, and denies pain or discomfort.
[2019-02-05 16:01] VITALS: BP 105/62
[2019-02-05] MEDS: traZODone 100 MG TABLET. PO SCH (20:10)
[2019-02-05] MEDS: DONEPEZIL HCL 10 MG TABLET PO SCH (20:11)
[2019-02-05] MEDS: SIMVASTATIN 20 MG TABLET PO SCH (20:11)
--- NOTE | 2019-02-05 22:03 | PDOC ---
Exam Note: Vincent Note: Please also refer to the separate dictated note~for this date of service dictated separately.~Patient seen individually. Discussed the patient with Nursing staff reviewed the chart.~Reviewed interim history and current functioning. Reviewed vital signs,~Labs/ Radiology~and current medications noted below. Continue current treatment with the changes noted in the dictated addendum note Assessment: Vital Signs/I&O: Vital Signs Date Time Temp Pulse Resp B/P (MAP) Pulse Ox O2 Delivery O2 Flow Rate FiO2 02/05/19 16:01 98.5 106 20 105/62 (76) 95 02/05/19 05:22 Room Air I & O 02/04/19 02/04/19 02/05/19 15:00 23:00 07:00 Intake Total 960 ml 480 ml 240 ml Balance 960 ml 480 ml 240 ml Labs: Laboratory Tests Test 02/05/19 07:57 02/05/19 12:09 02/05/19 16:45 02/05/19 19:13 Glucose (Fingerstick) 159 mg/dL (70-99) H 122 mg/dL (70-99) H 108 mg/dL (70-99) H 212 mg/dL (70-99) H Current Medications: Meds: Current Medications Medications (Trade) Dose Ordered Sig/Sanna Route PRN Reason Start Time Stop Time Status Last Admin Dose Admin Clozapine (Clozaril) 200 mg BID PO 02/05/19 21:00 02/05/19 20:11 Clozapine (Clozaril) 50 mg BID PO 02/05/19 21:00 02/05/19 20:11 I have reviewed the current psychotropics carefully including drug interactions. Risk benefit ratio favors no change other than as noted in my dictated progress note. Diagnosis: Problems: (1) Anxiety disorder (2) Schizoaffective disorder, chronic condition with acute exacerbation (3) Impulse control disorder KUNAL BEST MD Feb 05, 2019 22:03
--- NOTE | 2019-02-05 22:27 | NUR ---
Nursing Note Pt isolative to room, tells me he's not in a chatting kind of mood when I asked him how he was feeling. I offered him HS meds and a snack took both, gulping the water and the ice cream. Pt immediately goes back to laying on his belly face in the pillow after eating.
[2019-02-06] MEDS: LEVOTHYROXINE 100 MCG TABLET PO SCH (05:15)
[2019-02-06 05:21] VITALS: BP 107/74
[2019-02-06 07:30] LABS: BASO % 0 % (0-3); EOS % 0 % (0-3); HEMATOCRIT 42.2 % (39.0-53.0); HEMOGLOBIN 13.6 g/dL (13.0-17.5); LYMPH # 1.9 x10^3/uL (1.0-4.8); LYMPH % 19 % (24-48); MEAN CORPUSCULAR HEMOGLOBIN 30 pg (25-35); MEAN CORPUSCULAR HGB CONC 32 g/dL (31-37); MEAN CORPUSCULAR VOLUME 92 fL (79-100); MONO # 0.9 x10^3/uL (0.0-1.1); MONO % 9 % (0-9); NEUT # 7.2 x10^3uL (1.8-7.7); NEUT % 72 % (31-73); PLATELET COUNT 249 x10^3/uL (140-400); RED BLOOD COUNT 4.58 x10^6/uL (4.30-5.70); RED CELL DISTRIBUTION WIDTH 14.7 % (11.5-14.5)
[2019-02-06 07:41] LABS: CALCIUM 9.4 mg/dL (8.5-10.1); CREATININE 1.8 mg/dL (0.7-1.3); GFR 38.6; POTASSIUM 4.1 mmol/L (3.5-5.1)
[2019-02-06] MEDS: MEGESTROL 400 MG/10 ML ORAL.SUSP. PO SCH (08:06)
[2019-02-06] MEDS: cloZAPine 25 MG TABLET PO SCH ×2 (08:06→20:42)
[2019-02-06] MEDS: cloZAPine 100 MG TABLET PO SCH ×2 (08:06→20:42)
[2019-02-06] MEDS: glipiZIDE ER 2.5 MG TAB.ER.24 PO SCH (08:06)
[2019-02-06] MEDS: LUBIPROSTONE 24 MCG CAPSULE PO SCH ×2 (08:06→17:20)
[2019-02-06] MEDS: LITHIUM CARBONATE 300 MG TABLET PO SCH ×2 (08:07→20:42)
[2019-02-06] MEDS: BENZTROPINE MESYLATE 1 MG TABLET PO SCH ×2 (08:07→20:42)
[2019-02-06] MEDS: PANTOPRAZOLE 40 MG TABLET. PO SCH (08:07)
[2019-02-06] MEDS: METOPROLOL SUCC 24HR ER 25 MG TAB.ER.24H. PO SCH (08:07)
[2019-02-06] MEDS: CITALOPRAM 20 MG TABLET. PO SCH (08:07)
[2019-02-06] MEDS: INSULIN LISPRO 300 UNITS/3 ML VIAL. SQ SCH ×3 (08:13→17:00)
[2019-02-06] MEDS: MAGNESIUM HYDROXIDE 2,400 MG/30 ML ORAL.SUSP. PO PRN (10:08)
--- NOTE | 2019-02-06 14:44 | NUR ---
NURSING NOTES: PATIENT IN DINING ROOM EATING BREAKFAST AT TIME OF MEDICATION ADMINISTRATION AND ASSESSMENT. PATIENT CALM AND COOPERATIVE WITH STAFF. PATIENT CONTINUOUSLY ASKS FOR SOMETHING TO DRINK BUT INFORMED THAT HE CANNOT HAVE TOO MUCH TO DRINK D/T DILUTING HIS MEDICATION. PATIENT TAKES MEDICATIONS WHOLE, NO PROBLEMS NOTED. TREMORS TO ARMS, MD AWARE. NO OTHER BEHAVIORS NOTED THUS FAR. IN DAY ROOM AT THIS TIME.
[2019-02-06 16:26] VITALS: BP 101/62
[2019-02-06] MEDS: DONEPEZIL HCL 10 MG TABLET PO SCH (20:42)
[2019-02-06] MEDS: SIMVASTATIN 20 MG TABLET PO SCH (20:42)
[2019-02-06] MEDS: traZODone 100 MG TABLET. PO SCH (20:42)
[2019-02-06] MEDS: INSULIN GLARGINE SYRINGE. SQ SCH (20:59)
--- NOTE | 2019-02-06 22:21 | PN ---
DATE: 02/05/2019 PSYCHIATRIC PROGRESS NOTE This late entry, 02/05/2019, covers elements not covered in my initial note. SUBJECTIVE: I met with the patient in the evening of 02/05/2019. Reviewed information from Dr. Suazo who had covered for me over the past week or so. Per VIRY Maldonado, the patient slept reasonably last night and remains withdrawn to his room. He threw himself on the floor, the day before having a temper tantrum compliant with his medications. His WBC 11.9, neutrophils 76%. ANC is unremarkable and we will check CBC, ANC every Monday. REVIEW OF SYSTEMS: Positive for tiredness, met with him in his room. No CV, , pulmonary, eye system symptoms on review. MENTAL STATUS EXAM: Oriented to himself and situation. Speech moderate latency, often responses monosyllabic. Abstraction fair, computation impaired, language function intact, attention span short. Mood and affect withdrawn. LABORATORY DATA: Reviewed. IMPRESSION: Schizoaffective disorder, bipolar type, mixed with psychotic features; major depressive disorder, recurrent. Rest unchanged. PLAN: The patient is currently on Clozaril 225 mg a.m., 250 at bedtime. We will increase to 250 b.i.d. Check CBC, ANC every Monday. Maintain rest of the psychotropics, Celexa, Aricept, Cogentin, lithium 450 b.i.d., level therapeutic at 0.8. He is also on medroxyprogesterone, trazodone. Valium is being tapered. We will stop it in due course. KUNAL BEST MD DR: MARRY/merced JOB#: [id number] / [id number]
--- NOTE | 2019-02-06 23:29 | PDOC ---
Exam Note: Vincent Note: Please also refer to the separate dictated note~for this date of service dictated separately.~Patient seen individually. Discussed the patient with Nursing staff reviewed the chart.~Reviewed interim history and current functioning. Reviewed vital signs,~Labs/ Radiology~and current medications noted below. Continue current treatment with the changes noted in the dictated addendum note Assessment: Vital Signs/I&O: Vital Signs Date Time Temp Pulse Resp B/P (MAP) Pulse Ox O2 Delivery O2 Flow Rate FiO2 02/06/19 16:26 98.3 122 16 101/62 (75) 97 02/06/19 05:21 Room Air I & O 02/05/19 02/05/19 02/06/19 14:59 22:59 06:59 Intake Total 1100 ml 560 ml Balance 1100 ml 560 ml Labs: Laboratory Tests Test 02/06/19 07:05 02/06/19 07:44 02/06/19 12:13 02/06/19 16:52 White Blood Count 10.0 x10^3/uL (4.0-11.0) Red Blood Count 4.58 x10^6/uL (4.30-5.70) Hemoglobin 13.6 g/dL (13.0-17.5) Hematocrit 42.2 % (39.0-53.0) Mean Corpuscular Volume 92 fL (79-100) Mean Corpuscular Hemoglobin 30 pg (25-35) Mean Corpuscular Hemoglobin Concent 32 g/dL (31-37) Red Cell Distribution Width 14.7 % (11.5-14.5) H Platelet Count 249 x10^3/uL (140-400) Neutrophils (%) (Auto) 72 % (31-73) Lymphocytes (%) (Auto) 19 % (24-48) L Monocytes (%) (Auto) 9 % (0-9) Eosinophils (%) (Auto) 0 % (0-3) Basophils (%) (Auto) 0 % (0-3) Neutrophils # (Auto) 7.2 x10^3uL (1.8-7.7) Lymphocytes # (Auto) 1.9 x10^3/uL (1.0-4.8) Monocytes # (Auto) 0.9 x10^3/uL (0.0-1.1) Eosinophils # (Auto) 0.0 x10^3/uL (0.0-0.7) Basophils # (Auto) 0.0 x10^3/uL (0.0-0.2) Sodium Level 145 mmol/L (136-145) Potassium Level 4.1 mmol/L (3.5-5.1) Chloride Level 109 mmol/L (98-107) H Carbon Dioxide Level 30 mmol/L (21-32) Anion Gap 6 (6-14) Blood Urea Nitrogen 27 mg/dL (8-26) H Creatinine 1.8 mg/dL (0.7-1.3) H Estimated GFR (Cockcroft-Gault) 38.6 Glucose Level 181 mg/dL (70-99) H Calcium Level 9.4 mg/dL (8.5-10.1) Glucose (Fingerstick) 176 mg/dL (70-99) H 153 mg/dL (70-99) H 139 mg/dL (70-99) H Test 02/06/19 19:36 Glucose (Fingerstick) 189 mg/dL (70-99) H Current Medications: I have reviewed the current psychotropics carefully including drug interactions. Risk benefit ratio favors no change other than as noted in my dictated progress note. Diagnosis: Problems: (1) Agitation (2) Anxiety disorder (3) Schizoaffective disorder, chronic condition with acute exacerbation (4) Impulse control disorder KUNAL BEST MD Feb 06, 2019 23:29
--- NOTE | 2019-02-07 00:43 | CONS ---
DATE OF CONSULTATION: 01/20/2019 NEUROLOGY CONSULT REFERRING PHYSICIAN: Dr. George. REASON FOR CONSULTATION: Increased tremor of the upper extremities. HISTORY OF PRESENT ILLNESS: This is a 63-year-old right-handed male, who was admitted to [facility] on 01/10/2019 on account of increasing symptoms of paranoia, agitation, combative behavior towards the staff, isolation to himself, poor appetite, and refusing taking his medications. The patient has not been eating since 01/02/2019. Neuro consult was requested because the patient has had intermittent severe tremor of the upper extremities. Currently, the patient denies headaches, visual disturbances, nausea, vomiting, chest pain, shortness of breath or palpitation, dysarthria, dysphagia, weakness, or paresthesia. He stated his tremor has been intermittent for the last few years; however, the patient does not appear to be a good historian. He denies any recent head injuries or fall. PAST MEDICAL HISTORY: Significant for diabetes mellitus type 2, hypertension, hyperlipidemia, hypothyroidism, benign prostate hypertrophy, and history of dementia. PAST SURGICAL HISTORY: Appendectomy. FAMILY HISTORY: Noncontributory. SOCIAL HISTORY: The patient is . He has no children. He denies smoking, alcohol drinking, or illicit drug use. He is a resident at [facility]. CURRENT MEDICATIONS: Include Aricept 10 mg daily, simvastatin 20 mg daily, metoprolol 25 mg daily, citalopram 40 mg daily, trazodone 100 mg at bedtime, clozapine, haloperidol 5 mg q. 6 hours p.r.n. for agitation, diazepam 2 mg 3 times daily, lithium 300 mg 1 capsule daily, paroxetine 40 mg daily, Linzess 290 mcg daily, glipizide extended release 2.5 mg daily, medroxyprogesterone 5 mg twice daily, Megace 400 mg twice daily, levothyroxine 75 mcg daily, vitamin B12 1000 mcg intramuscularly every month, and Cogentin 1 mg b.i.d. REVIEW OF SYSTEMS: A 12-point review of system was performed as mentioned above in history of present illness, otherwise, consistent with severe and intermittent tremor of the upper extremities, aggravated by the anxiety and agitation. PHYSICAL EXAMINATION: GENERAL: Well-developed and well-nourished male, not in acute distress. He weighs 75.9 kilos. VITAL SIGNS: Blood pressure 132/68, respiratory rate 16, pulse is 100, temperature 98.7, and oxygen saturation 98% on room air. HEENT: Normocephalic and atraumatic, otherwise, unremarkable. NECK: Supple. Negative for carotid bruit, lymphadenopathy, or thyromegaly. LUNGS: Clear to A and P. CARDIOVASCULAR: Regular rate and rhythm. Normal S1 and S2. There is no S3, S4, or murmur. ABDOMEN: Soft. Bowel sounds are positive. EXTREMITIES: Negative for cyanosis, clubbing, or edema. NEUROLOGICAL: MENTAL STATUS: The patient is alert and oriented to place. Speech is fluent. There is no language dysfunction. Memory, judgment, and abstracting thinking are fair. The patient denies hallucination or delusion. CRANIAL NERVES: Visual perez are full. The pupils are reactive to light and accommodation. The extraocular movements are intact. There is no nystagmus. There is no motor or sensory deficit. Hearing is intact bilaterally. The palate is elevated symmetrically. Sternocleidomastoid muscles are powerful bilaterally. The patient shrugs his shoulders symmetrically, protrudes his tongue in the midline without fasciculation or atrophy. MOTOR: No focal muscle bulk was seen. The tone is normal. The strength is 5/5 throughout. The patient has intermittent resting, postural, and kinetic tremors of the upper extremities. He is very anxious. SENSORY: Revealed normal pinprick and light touch senses throughout. Deep tendon reflexes were asymmetric and active without much other responses. Gait and coordination are normal. LABORATORY DATA: From 01/19/2019 revealed white blood cells of 11.6 thousand, hemoglobin 13.6, hematocrit 41.3, and platelet count 213,000. Chemistry from 01/16/2019 revealed sodium 144, potassium 4, chloride 108, CO2 of 27, BUN 22, creatinine 1.3, glucose 162, and calcium 9. Liver enzymes are normal. Urine drug screen from 01/19/2019 revealed a lithium of 0.7. IMPRESSION: 1. Severe and intermittent tremor of the upper extremities induced by anxiety and agitation, no evidence of Parkinsonism at this time. 2. Multiple psychiatric problems include major depression, dementia, anxiety disorders. 3. Multiple medical problems include hypertension, hyperlipidemia, hypothyroidism, diabetes mellitus, and benign prostate hypertrophy. RECOMMENDATIONS: 1. Continue with the current medical and psychiatric care. 2. The patient has been on Cogentin 1 mg twice daily for tremor. M Fozia DOW MD DR: KAROLINE/merced JOB#: [id number] / [id number]
--- NOTE | 2019-02-07 01:31 | NUR ---
Nursing Note Pt isolative to room, tells me he's not in a chatting kind of mood when I asked him how he was feeling. I offered him water and a snack, declines snack but gulps water when handed to him to the point of choking. Pt immediately goes back to laying on his belly face in the pillow after eating.
[2019-02-07] MEDS: LEVOTHYROXINE 100 MCG TABLET PO SCH (06:01)
[2019-02-07 06:24] VITALS: BP 162/87
[2019-02-07] MEDS: INSULIN LISPRO 300 UNITS/3 ML VIAL. SQ SCH ×3 (08:00→17:00)
[2019-02-07] MEDS: MEGESTROL 400 MG/10 ML ORAL.SUSP. PO SCH (09:50)
[2019-02-07] MEDS: LITHIUM CARBONATE 300 MG TABLET PO SCH ×2 (09:51→21:28)
[2019-02-07] MEDS: cloZAPine 25 MG TABLET PO SCH ×2 (09:51→21:27)
[2019-02-07] MEDS: cloZAPine 100 MG TABLET PO SCH ×2 (09:51→21:28)
[2019-02-07] MEDS: LUBIPROSTONE 24 MCG CAPSULE PO SCH ×2 (09:51→17:22)
[2019-02-07] MEDS: CITALOPRAM 20 MG TABLET. PO SCH (09:51)
[2019-02-07] MEDS: PANTOPRAZOLE 40 MG TABLET. PO SCH (09:51)
[2019-02-07] MEDS: BENZTROPINE MESYLATE 1 MG TABLET PO SCH ×2 (09:52→21:28)
[2019-02-07] MEDS: glipiZIDE ER 2.5 MG TAB.ER.24 PO SCH (09:52)
[2019-02-07] MEDS: METOPROLOL SUCC 24HR ER 25 MG TAB.ER.24H. PO SCH (09:52)
[2019-02-07 16:17] VITALS: BP 110/61
--- NOTE | 2019-02-07 20:45 | PDOC ---
Exam Note: Vincent Note: Please also refer to the separate dictated note~for this date of service dictated separately.~Patient seen individually. Discussed the patient with Nursing staff reviewed the chart.~Reviewed interim history and current functioning. Reviewed vital signs,~Labs/ Radiology~and current medications noted below. Continue current treatment with the changes noted in the dictated addendum note Assessment: Vital Signs/I&O: Vital Signs Date Time Temp Pulse Resp B/P (MAP) Pulse Ox O2 Delivery O2 Flow Rate FiO2 02/07/19 16:17 99.4 101 22 110/61 (77) 99 02/06/19 05:21 Room Air I & O 02/06/19 02/06/19 02/07/19 15:00 23:00 07:00 Intake Total 1280 ml 240 ml Balance 1280 ml 240 ml Labs: Laboratory Tests Test 02/07/19 06:55 02/07/19 07:38 02/07/19 11:48 02/07/19 17:20 [place] Level 1.1 mmol/L (0.6-1.2) [place] Last Dose Date 02/06/19 [place] Last Dose Time 0900 Glucose (Fingerstick) 158 mg/dL (70-99) H 161 mg/dL (70-99) H 128 mg/dL (70-99) H Test 02/07/19 19:07 Glucose (Fingerstick) 264 mg/dL (70-99) H Current Medications: I have reviewed the current psychotropics carefully including drug interactions. Risk benefit ratio favors no change other than as noted in my dictated progress note. Diagnosis: Problems: (1) Anxiety disorder (2) Schizoaffective disorder, chronic condition with acute exacerbation (3) Impulse control disorder (4) Acute kidney injury (5) Agitation KUNAL BEST MD Feb 07, 2019 20:45
[2019-02-07] MEDS: SIMVASTATIN 20 MG TABLET PO SCH (21:27)
[2019-02-07] MEDS: DONEPEZIL HCL 10 MG TABLET PO SCH (21:28)
[2019-02-07] MEDS: traZODone 100 MG TABLET. PO SCH (21:28)
[2019-02-07] MEDS: INSULIN GLARGINE SYRINGE. SQ SCH (21:52)
[2019-02-08 05:00] VITALS: BP 133/77
[2019-02-08] MEDS: LEVOTHYROXINE 100 MCG TABLET PO SCH (05:39)
[2019-02-08] MEDS: INSULIN LISPRO 300 UNITS/3 ML VIAL. SQ SCH ×3 (08:00→17:00)
[2019-02-08] MEDS: glipiZIDE ER 2.5 MG TAB.ER.24 PO SCH (08:40)
[2019-02-08] MEDS: CITALOPRAM 20 MG TABLET. PO SCH (08:40)
[2019-02-08] MEDS: MEGESTROL 400 MG/10 ML ORAL.SUSP. PO SCH (08:40)
[2019-02-08] MEDS: PANTOPRAZOLE 40 MG TABLET. PO SCH (08:41)
[2019-02-08] MEDS: LUBIPROSTONE 24 MCG CAPSULE PO SCH ×2 (08:41→17:09)
[2019-02-08] MEDS: METOPROLOL SUCC 24HR ER 25 MG TAB.ER.24H. PO SCH (08:41)
[2019-02-08] MEDS: LITHIUM CARBONATE 300 MG TABLET PO SCH ×2 (08:41→20:08)
[2019-02-08] MEDS: BENZTROPINE MESYLATE 1 MG TABLET PO SCH ×2 (08:41→20:07)
[2019-02-08] MEDS ORDERED: CYANOCOBALAMIN (VITAMIN B-12) 1,000 MCG/ML VIAL IM SCH (09:00)
--- NOTE | 2019-02-08 12:17 | NUR ---
WEEKLY ACTIVITY THERAPY NOTE Date of Admission: 01/10/2019 Date of AT Assessment: 01/14/2019 Goal aimed: to increase relaxation techniques and leisure engagement Initial goal: Pt. will participate in at least five individual or Activity Therapy groups before discharge. Goal changed 01/24: Pt. will participate in at least one individual Activity Therapy group before discharge. Weekly progress towards goal: achieved in small group on Monday Group participation level: moderate in one group this week Weekly highlights: agreed to listen to 'Reinaldo Soni' read aloud on Monday Behaviors observed: not around group much at all this week but when he is he rests his head on the table and often seeks liquids to drink (drinks in desperation). Often appears restless, anxious, sweaty Plan: repeat goal Beneficial adaptations: potentially a drink schedule
[2019-02-08 16:12] VITALS: BP 115/60
[2019-02-08] MEDS: traZODone 100 MG TABLET. PO SCH (20:08)
[2019-02-08] MEDS: DONEPEZIL HCL 10 MG TABLET PO SCH (20:08)
[2019-02-08] MEDS: SIMVASTATIN 20 MG TABLET PO SCH (20:10)
[2019-02-08] MEDS: cloZAPine 100 MG TABLET PO SCH (20:10)
[2019-02-08] MEDS: INSULIN GLARGINE SYRINGE. SQ SCH (20:11)
--- NOTE | 2019-02-08 21:35 | PDOC ---
Exam Note: Vincent Note: Please also refer to the separate dictated note~for this date of service dictated separately.~Patient seen individually. Discussed the patient with Nursing staff reviewed the chart.~Reviewed interim history and current functioning. Reviewed vital signs,~Labs/ Radiology~and current medications noted below. Continue current treatment with the changes noted in the dictated addendum note Assessment: Vital Signs/I&O: Vital Signs Date Time Temp Pulse Resp B/P (MAP) Pulse Ox O2 Delivery O2 Flow Rate FiO2 02/08/19 16:12 97.8 99 22 115/60 (78) 95 Room Air I & O 02/07/19 02/07/19 02/08/19 15:00 23:00 07:00 Intake Total 1280 ml 600 ml Balance 1280 ml 600 ml Labs: Laboratory Tests Test 02/08/19 07:37 02/08/19 11:41 02/08/19 16:28 02/08/19 19:15 Glucose (Fingerstick) 142 mg/dL (70-99) H 118 mg/dL (70-99) H 86 mg/dL (70-99) 245 mg/dL (70-99) H Current Medications: Meds: Current Medications Medications (Trade) Dose Ordered Sig/Sanna Route PRN Reason Start Time Stop Time Status Last Admin Dose Admin Cyanocobalamin (Vitamin B-12) 1,000 mcg QMONTH IM 02/08/19 09:00 02/08/19 08:42 Clozapine (Clozaril) 500 mg QHS PO 02/08/19 21:00 02/08/19 20:10 Mcneil Carbonate 300 mg BID PO 02/08/19 21:00 02/08/19 20:08 I have reviewed the current psychotropics carefully including drug interactions. Risk benefit ratio favors no change other than as noted in my dictated progress note. Diagnosis: Problems: (1) Anxiety disorder (2) Schizoaffective disorder, chronic condition with acute exacerbation (3) Impulse control disorder (4) Agitation KUNAL BEST MD Feb 08, 2019 21:35
--- NOTE | 2019-02-08 22:58 | PN ---
DATE: 02/06/2019 This late entry 02/06/2019 covers elements not covered in my initial note. SUBJECTIVE: I met with the patient evening of 02/06/2019. Per VIRY Hanks, the patient slept 5 hours previous night. He is frequently asking for excessive amounts of water. We will repeat a lithium level on 02/06/2019. Remains withdrawn, seems to go back to his room whenever he can. REVIEW OF SYSTEMS: Positive for tiredness. No CV, , pulmonary, eye system symptoms on review. MENTAL STATUS EXAM: Oriented reasonably. Speech moderate latency, often responses monosyllabic. Abstraction fair, computation impaired, language function intact. Mood and affect withdrawn. LABORATORY DATA: Reviewed. IMPRESSION: Unchanged from initial note. PLAN: No change from initial note. We may consider changing the Clozaril entire dosage to nighttime if daytime sedation persists. Rest unchanged. Repeat lithium level. MAN Alan BEST MD DR: MARRY/merced JOB#: [id number] / [id number]
--- NOTE | 2019-02-08 23:04 | PN ---
DATE: 02/07/2019 PSYCHIATRIC PROGRESS NOTE This late entry, 02/07/2019, covers the elements not covered in my initial note. SUBJECTIVE: I met with the patient evening of 02/07/2019. Per nursing report, the patient slept 7-3/4 hours. He is rude at times. We will change the entire dosage of Clozaril 500 mg to bedtime instead of half in the day and half at night due to his daytime sedation. REVIEW OF SYSTEMS: No CV, , pulmonary, or eye system symptoms on review other than tiredness. MENTAL STATUS EXAM: Reasonably oriented. Speech is moderate latency, often responses monosyllabic. Abstraction fair, computation impaired, and language function intact. Mood and affect withdrawn. LABORATORY DATA: Reviewed. IMPRESSION: Unchanged from initial note. PLAN: No change from initial note. MAN Alan BEST MD DR: MARRY/merced JOB#: [id number] / [id number]
--- NOTE | 2019-02-09 01:03 | NUR ---
Last evening pt sat in day room he was quiet and cooperative. Meds were taken whole without difficulty. He would request water then guzzle it as quickly as possible. Hand tremors persist.
[2019-02-09] MEDS: LEVOTHYROXINE 100 MCG TABLET PO SCH (05:24)
[2019-02-09 05:54] VITALS: BP 151/79
[2019-02-09] MEDS: CITALOPRAM 20 MG TABLET. PO SCH (08:21)
[2019-02-09] MEDS: PANTOPRAZOLE 40 MG TABLET. PO SCH (08:21)
[2019-02-09] MEDS: LITHIUM CARBONATE 300 MG TABLET PO SCH ×2 (08:21→20:42)
[2019-02-09] MEDS: LUBIPROSTONE 24 MCG CAPSULE PO SCH ×2 (08:21→17:17)
[2019-02-09] MEDS: BENZTROPINE MESYLATE 1 MG TABLET PO SCH ×2 (08:21→20:42)
[2019-02-09] MEDS: METOPROLOL SUCC 24HR ER 25 MG TAB.ER.24H. PO SCH (08:22)
[2019-02-09] MEDS: glipiZIDE ER 2.5 MG TAB.ER.24 PO SCH (08:25)
[2019-02-09] MEDS: CHOLECALCIFEROL (VITAMIN D3) 50,000 UNIT CAPSULE PO SCH (08:26)
[2019-02-09] MEDS: INSULIN LISPRO 300 UNITS/3 ML VIAL. SQ SCH ×3 (08:27→17:00)
--- NOTE | 2019-02-09 11:20 | NUR ---
Pt is compliant with his medication and assessment. No agitation or aggression. No hallucinations or delusions noted. He does ask for water and fluid constantly during meals so fluid consumption must be monitored as he will drink it so fast he chokes. Pt can follow directions well.
[2019-02-09 16:11] VITALS: BP 162/81
[2019-02-09] MEDS: SIMVASTATIN 20 MG TABLET PO SCH (20:42)
[2019-02-09] MEDS: DONEPEZIL HCL 10 MG TABLET PO SCH (20:42)
[2019-02-09] MEDS: traZODone 100 MG TABLET. PO SCH (20:42)
[2019-02-09] MEDS: cloZAPine 100 MG TABLET PO SCH (20:42)
[2019-02-09] MEDS: INSULIN GLARGINE SYRINGE. SQ SCH (20:44)
--- NOTE | 2019-02-09 21:31 | PDOC ---
Exam Note: Vincent Note: Please also refer to the separate dictated note~for this date of service dictated separately.~Patient seen individually. Discussed the patient with Nursing staff reviewed the chart.~Reviewed interim history and current functioning. Reviewed vital signs,~Labs/ Radiology~and current medications noted below. Continue current treatment with the changes noted in the dictated addendum note Assessment: Vital Signs/I&O: Vital Signs Date Time Temp Pulse Resp B/P (MAP) Pulse Ox O2 Delivery O2 Flow Rate FiO2 02/09/19 16:11 97.4 98 16 162/81 (108) 96 02/09/19 05:54 Room Air I & O 02/08/19 02/08/19 02/09/19 15:00 23:00 07:00 Intake Total 820 ml 1460 ml Balance 820 ml 1460 ml Labs: Laboratory Tests Test 02/09/19 07:37 02/09/19 11:25 02/09/19 16:21 02/09/19 19:48 Glucose (Fingerstick) 169 mg/dL (70-99) H 233 mg/dL (70-99) H 95 mg/dL (70-99) 204 mg/dL (70-99) H Current Medications: I have reviewed the current psychotropics carefully including drug interactions. Risk benefit ratio favors no change other than as noted in my dictated progress note. Diagnosis: Problems: (1) Agitation (2) Anxiety disorder (3) Schizoaffective disorder, chronic condition with acute exacerbation (4) Impulse control disorder (5) Rhabdomyolysis KUNAL BEST MD Feb 09, 2019 21:31
--- NOTE | 2019-02-09 23:11 | NUR ---
Nursing Note Pt more awake this week, actually converses with me. Pleasant calm and cooperative. Although he is drinking an excessive amount of fluids. Electrolytes ordered for am.
[2019-02-09 23:45] LABS: BASO # 0.1 x10^3/uL (0.0-0.2); BASO % 1 % (0-3); EOS % 0 % (0-3); HEMATOCRIT 37.5 % (39.0-53.0); HEMOGLOBIN 12.2 g/dL (13.0-17.5); LYMPH # 2.3 x10^3/uL (1.0-4.8); LYMPH % 20 % (24-48); MEAN CORPUSCULAR HEMOGLOBIN 29 pg (25-35); MEAN CORPUSCULAR HGB CONC 33 g/dL (31-37); MEAN CORPUSCULAR VOLUME 90 fL (79-100); MONO % 9 % (0-9); NEUT # 8.1 x10^3uL (1.8-7.7); NEUT % 71 % (31-73); PLATELET COUNT 203 x10^3/uL (140-400); RED BLOOD COUNT 4.18 x10^6/uL (4.30-5.70); RED CELL DISTRIBUTION WIDTH 14.5 % (11.5-14.5); WHITE BLOOD COUNT 11.4 x10^3/uL (4.0-11.0)
[2019-02-10 00:17] LABS: ALBUMIN 2.9 g/dL (3.4-5.0); ALBUMIN/GLOBULIN RATIO 1.1 (1.0-1.7); CALCIUM 8.8 mg/dL (8.5-10.1); CREATININE 1.6 mg/dL (0.7-1.3); GFR 44.2; POTASSIUM 4.3 mmol/L (3.5-5.1); TOTAL BILIRUBIN 0.4 mg/dL (0.2-1.0); TOTAL PROTEIN 5.6 g/dL (6.4-8.2)
[2019-02-10 05:36] VITALS: BP 131/81
[2019-02-10] MEDS: LEVOTHYROXINE 100 MCG TABLET PO SCH (06:31)
[2019-02-10] MEDS: PANTOPRAZOLE 40 MG TABLET. PO SCH (09:31)
[2019-02-10] MEDS: LUBIPROSTONE 24 MCG CAPSULE PO SCH ×2 (09:31→17:18)
[2019-02-10] MEDS: LITHIUM CARBONATE 300 MG TABLET PO SCH ×2 (09:31→19:57)
[2019-02-10] MEDS: INSULIN LISPRO 300 UNITS/3 ML VIAL. SQ SCH ×3 (09:31→17:17)
[2019-02-10] MEDS: glipiZIDE ER 2.5 MG TAB.ER.24 PO SCH (09:32)
[2019-02-10] MEDS: CITALOPRAM 20 MG TABLET. PO SCH (09:32)
[2019-02-10] MEDS: BENZTROPINE MESYLATE 1 MG TABLET PO SCH ×2 (09:32→19:57)
[2019-02-10] MEDS: METOPROLOL SUCC 24HR ER 25 MG TAB.ER.24H. PO SCH (09:32)
--- NOTE | 2019-02-10 10:12 | NUR ---
Pt can follow directions well. Pt is compliant with his medication and assessment. No hallucinations or delusions noted. No agitation or aggression. He does ask for water and fluid constantly during meals so fluid consumption must be monitored as he will drink it so fast he chokes.
[2019-02-10 15:37] VITALS: BP 165/83
[2019-02-10] MEDS: INSULIN GLARGINE SYRINGE. SQ SCH (19:56)
[2019-02-10] MEDS: traZODone 100 MG TABLET. PO SCH (19:57)
[2019-02-10] MEDS: DONEPEZIL HCL 10 MG TABLET PO SCH (19:57)
[2019-02-10] MEDS: SIMVASTATIN 20 MG TABLET PO SCH (19:57)
[2019-02-10] MEDS: cloZAPine 100 MG TABLET PO SCH (19:57)
--- NOTE | 2019-02-10 21:07 | PDOC ---
Exam Note: Vincent Note: Please also refer to the separate dictated note~for this date of service dictated separately.~Patient seen individually. Discussed the patient with Nursing staff reviewed the chart.~Reviewed interim history and current functioning. Reviewed vital signs,~Labs/ Radiology~and current medications noted below. Continue current treatment with the changes noted in the dictated addendum note Assessment: Vital Signs/I&O: Vital Signs Date Time Temp Pulse Resp B/P (MAP) Pulse Ox O2 Delivery O2 Flow Rate FiO2 02/10/19 15:37 98.4 102 22 165/83 (110) 93 02/09/19 05:54 Room Air I & O 02/09/19 02/09/19 02/10/19 14:59 22:59 06:59 Intake Total 1300 ml 620 ml 360 ml Balance 1300 ml 620 ml 360 ml Labs: Laboratory Tests Test 02/09/19 23:35 02/10/19 07:46 02/10/19 11:15 02/10/19 17:03 White Blood Count 11.4 x10^3/uL (4.0-11.0) H Red Blood Count 4.18 x10^6/uL (4.30-5.70) L Hemoglobin 12.2 g/dL (13.0-17.5) L Hematocrit 37.5 % (39.0-53.0) L Mean Corpuscular Volume 90 fL (79-100) Mean Corpuscular Hemoglobin 29 pg (25-35) Mean Corpuscular Hemoglobin Concent 33 g/dL (31-37) Red Cell Distribution Width 14.5 % (11.5-14.5) Platelet Count 203 x10^3/uL (140-400) Neutrophils (%) (Auto) 71 % (31-73) Lymphocytes (%) (Auto) 20 % (24-48) L Monocytes (%) (Auto) 9 % (0-9) Eosinophils (%) (Auto) 0 % (0-3) Basophils (%) (Auto) 1 % (0-3) Neutrophils # (Auto) 8.1 x10^3uL (1.8-7.7) H Lymphocytes # (Auto) 2.3 x10^3/uL (1.0-4.8) Monocytes # (Auto) 1.0 x10^3/uL (0.0-1.1) Eosinophils # (Auto) 0.0 x10^3/uL (0.0-0.7) Basophils # (Auto) 0.1 x10^3/uL (0.0-0.2) Sodium Level 145 mmol/L (136-145) Potassium Level 4.3 mmol/L (3.5-5.1) Chloride Level 110 mmol/L (98-107) H Carbon Dioxide Level 30 mmol/L (21-32) Anion Gap 5 (6-14) L Blood Urea Nitrogen 29 mg/dL (8-26) H Creatinine 1.6 mg/dL (0.7-1.3) H Estimated GFR (Cockcroft-Gault) 44.2 BUN/Creatinine Ratio 18 (6-20) Glucose Level 134 mg/dL (70-99) H Calcium Level 8.8 mg/dL (8.5-10.1) Total Bilirubin 0.4 mg/dL (0.2-1.0) Aspartate Amino Transferase (AST) 17 U/L (15-37) Alanine Aminotransferase (ALT) 45 U/L (16-63) Alkaline Phosphatase 57 U/L (46-116) Total Protein 5.6 g/dL (6.4-8.2) L Albumin 2.9 g/dL (3.4-5.0) L Albumin/Globulin Ratio 1.1 (1.0-1.7) Glucose (Fingerstick) 146 mg/dL (70-99) H 288 mg/dL (70-99) H 144 mg/dL (70-99) H Test 02/10/19 19:11 Glucose (Fingerstick) 200 mg/dL (70-99) H Current Medications: I have reviewed the current psychotropics carefully including drug interactions. Risk benefit ratio favors no change other than as noted in my dictated progress note. Diagnosis: Problems: (1) Schizoaffective disorder, chronic condition with acute exacerbation (2) Anxiety disorder (3) Impulse control disorder (4) Agitation KUNAL BEST MD Feb 10, 2019 21:07
--- NOTE | 2019-02-10 21:12 | NUR ---
Nursing Note Pt up in day room, pleasant calm and cooperative. Compliant with meds and assessment.
[2019-02-11 05:25] VITALS: BP 135/87
[2019-02-11] MEDS: LEVOTHYROXINE 100 MCG TABLET PO SCH (06:08)
[2019-02-11 07:14] LABS: BASO % 0 % (0-3); EOS % 0 % (0-3); HEMATOCRIT 40.5 % (39.0-53.0); HEMOGLOBIN 13.1 g/dL (13.0-17.5); LYMPH # 1.9 x10^3/uL (1.0-4.8); LYMPH % 22 % (24-48); MEAN CORPUSCULAR HEMOGLOBIN 30 pg (25-35); MEAN CORPUSCULAR HGB CONC 32 g/dL (31-37); MEAN CORPUSCULAR VOLUME 92 fL (79-100); MONO # 0.7 x10^3/uL (0.0-1.1); MONO % 8 % (0-9); NEUT # 6.4 x10^3uL (1.8-7.7); NEUT % 71 % (31-73); PLATELET COUNT 195 x10^3/uL (140-400); RED BLOOD COUNT 4.41 x10^6/uL (4.30-5.70); RED CELL DISTRIBUTION WIDTH 14.9 % (11.5-14.5); WHITE BLOOD COUNT 9.1 x10^3/uL (4.0-11.0)
[2019-02-11] MEDS: INSULIN LISPRO 300 UNITS/3 ML VIAL. SQ SCH ×3 (08:44→17:21)
[2019-02-11] MEDS: glipiZIDE ER 2.5 MG TAB.ER.24 PO SCH (08:46)
[2019-02-11] MEDS: LUBIPROSTONE 24 MCG CAPSULE PO SCH ×2 (08:46→17:19)
[2019-02-11] MEDS: BENZTROPINE MESYLATE 1 MG TABLET PO SCH ×2 (08:46→21:02)
[2019-02-11] MEDS: LITHIUM CARBONATE 300 MG TABLET PO SCH ×2 (08:46→21:02)
[2019-02-11] MEDS: PANTOPRAZOLE 40 MG TABLET. PO SCH (08:46)
[2019-02-11] MEDS: CITALOPRAM 20 MG TABLET. PO SCH (08:46)
[2019-02-11] MEDS: METOPROLOL SUCC 24HR ER 25 MG TAB.ER.24H. PO SCH (08:49)
--- NOTE | 2019-02-11 10:43 | NUR ---
Pt is compliant with his medication and assessment. No agitation or aggression. No hallucinations or delusions noted. He does ask for water and fluids often even immediately after finishing a glass. Pt can follow directions well.
--- NOTE | 2019-02-11 11:39 | PN ---
DATE: 02/09/2019 PSYCHIATRIC PROGRESS NOTE This late entry 02/09/2019 covers elements not covered in my initial note. SUBJECTIVE: I met with the patient in the evening. The patient slept 5-3/4 hours previous night. He remains somewhat intrusive, seems to have increased fluid intake. Nursing staff had called me, we will check serum electrolytes and serum and urine osmolality to rule out SIADH. REVIEW OF SYSTEMS: No CV, , pulmonary, eye system symptoms on review. Does admit to being tired. MENTAL STATUS EXAM: Reasonably oriented. Speech has some latency, coherent. Abstraction fair, computation impaired, language function intact. Mood and affect withdrawn. LABORATORY DATA: Reviewed. IMPRESSION: Unchanged from initial note. PLAN: Workup as above. Rest unchanged for now, continue CBC, ANC weekly as he is on the Clozaril all of which has been changed to the bedtime dosage. We will repeat a lithium level as well. Currently 1.1. KUNAL BEST MD DR: AMRRY/merced JOB#: [id number] / [id number]
--- NOTE | 2019-02-11 11:40 | PN ---
DATE: 02/10/2019 PSYCHIATRIC PROGRESS NOTE This late entry 02/10/2019 covers elements not covered in my initial note. SUBJECTIVE: I met with the patient evening of 02/10/2019. The patient slept 4-3/4 hours previous night. He remains somewhat withdrawn, isolates to his room, but less so than before. The Clozaril was changed to BHS for the entire dosage. REVIEW OF SYSTEMS: No CV, , pulmonary, eye system symptoms on review. MENTAL STATUS EXAM: Reasonably oriented. Speech is coherent, has some latency. Abstraction fair, computation impaired, language function intact. Mood and affect withdrawn. LABORATORY DATA: Reviewed. IMPRESSION: Unchanged from initial note. PLAN: No change from initial note. Repeat lithium level. MAN Alan BEST MD DR: MARRY/merced JOB#: [id number] / [id number]
--- NOTE | 2019-02-11 11:45 | PN ---
DATE: 02/08/2019 PSYCHIATRIC PROGRESS NOTE This late entry 02/08/2019 covers elements not covered in my initial note. SUBJECTIVE: I met with the patient evening of 02/08/2019. The patient was staffed at a treatment team meeting with the entire team earlier in the day. He is sleeping 8-9 hours. Appetite 100%, remains on one-on-one status. Megace was stopped as he is on medroxyprogesterone. [place] level on 02/07/2019 is 1.1. REVIEW OF SYSTEMS: Ambulation impaired. He is constantly wanting to get back to his room, isolative. No CV, , pulmonary, eye system symptoms on review. MENTAL STATUS EXAM: Oriented reasonably. Speech is coherent, abstraction fair, computation impaired, language function intact, attention span short. Mood and affect withdrawn. LABORATORY DATA: Reviewed. IMPRESSION: Unchanged from initial note. PLAN: No change from initial note. KUNAL BEST MD DR: MARRY/merced JOB#: [id number] / [id number]
[2019-02-11 12:07] LABS: URINE OSMOLALITY 186 mOsmol/kg (.)
[2019-02-11 16:18] VITALS: BP 111/66
[2019-02-11] MEDS: SIMVASTATIN 20 MG TABLET PO SCH (21:02)
[2019-02-11] MEDS: traZODone 100 MG TABLET. PO SCH (21:02)
[2019-02-11] MEDS: cloZAPine 100 MG TABLET PO SCH (21:02)
[2019-02-11] MEDS: DONEPEZIL HCL 10 MG TABLET PO SCH (21:02)
[2019-02-11] MEDS: INSULIN GLARGINE SYRINGE. SQ SCH (21:03)
--- NOTE | 2019-02-11 21:29 | PDOC ---
Exam Note: Vincent Note: Please also refer to the separate dictated note~for this date of service dictated separately.~Patient seen individually. Discussed the patient with Nursing staff reviewed the chart.~Reviewed interim history and current functioning. Reviewed vital signs,~Labs/ Radiology~and current medications noted below. Continue current treatment with the changes noted in the dictated addendum note Assessment: Vital Signs/I&O: Vital Signs Date Time Temp Pulse Resp B/P (MAP) Pulse Ox O2 Delivery O2 Flow Rate FiO2 02/11/19 16:18 97.9 84 16 111/66 (81) 87 02/09/19 05:54 Room Air I & O 02/10/19 02/10/19 02/11/19 15:00 23:00 07:00 Intake Total 1080 ml 360 ml Balance 1080 ml 360 ml Labs: Laboratory Tests Test 02/11/19 06:50 02/11/19 07:29 02/11/19 12:04 02/11/19 17:15 White Blood Count 9.1 x10^3/uL (4.0-11.0) Red Blood Count 4.41 x10^6/uL (4.30-5.70) Hemoglobin 13.1 g/dL (13.0-17.5) Hematocrit 40.5 % (39.0-53.0) Mean Corpuscular Volume 92 fL (79-100) Mean Corpuscular Hemoglobin 30 pg (25-35) Mean Corpuscular Hemoglobin Concent 32 g/dL (31-37) Red Cell Distribution Width 14.9 % (11.5-14.5) H Platelet Count 195 x10^3/uL (140-400) Neutrophils (%) (Auto) 71 % (31-73) Lymphocytes (%) (Auto) 22 % (24-48) L Monocytes (%) (Auto) 8 % (0-9) Eosinophils (%) (Auto) 0 % (0-3) Basophils (%) (Auto) 0 % (0-3) Neutrophils # (Auto) 6.4 x10^3uL (1.8-7.7) Lymphocytes # (Auto) 1.9 x10^3/uL (1.0-4.8) Monocytes # (Auto) 0.7 x10^3/uL (0.0-1.1) Eosinophils # (Auto) 0.0 x10^3/uL (0.0-0.7) Basophils # (Auto) 0.0 x10^3/uL (0.0-0.2) [place]ren Level 0.8 mmol/L (0.6-1.2) Siren Last Dose Date 02/10/19 Siren Last Dose Time 2100 Glucose (Fingerstick) 152 mg/dL (70-99) H 136 mg/dL (70-99) H 151 mg/dL (70-99) H Test 02/11/19 19:22 Glucose (Fingerstick) 168 mg/dL (70-99) H Current Medications: I have reviewed the current psychotropics carefully including drug interactions. Risk benefit ratio favors no change other than as noted in my dictated progress note. Diagnosis: Problems: (1) Anxiety disorder (2) Schizoaffective disorder, chronic condition with acute exacerbation (3) Impulse control disorder KUNAL BEST MD Feb 11, 2019 21:29
[2019-02-12] MEDS: LEVOTHYROXINE 100 MCG TABLET PO SCH (04:57)
[2019-02-12 05:31] VITALS: BP 122/70
[2019-02-12] MEDS: INSULIN LISPRO 300 UNITS/3 ML VIAL. SQ SCH ×3 (08:26→17:17)
[2019-02-12] MEDS: PANTOPRAZOLE 40 MG TABLET. PO SCH (09:15)
[2019-02-12] MEDS: LUBIPROSTONE 24 MCG CAPSULE PO SCH ×2 (09:15→17:16)
[2019-02-12] MEDS: LITHIUM CARBONATE 300 MG TABLET PO SCH ×2 (09:15→21:12)
[2019-02-12] MEDS: BENZTROPINE MESYLATE 1 MG TABLET PO SCH ×2 (09:15→21:11)
[2019-02-12] MEDS: CITALOPRAM 20 MG TABLET. PO SCH (09:18)
[2019-02-12] MEDS: METOPROLOL SUCC 24HR ER 25 MG TAB.ER.24H. PO SCH (09:18)
--- NOTE | 2019-02-12 09:39 | NUR ---
Patient was sitting at a table eating his breakfast with his 1:1. The nurse was in day room attempting to scan patients ID bracelet for morning med pass Patient grabbed scanner and nurses right wrist, twisting wrist and refusing to let go when asked. Nurse was able to use BVP moves to get wrist out of patients grasp. Patient then stood up and began kicking staff and trying to stomp on staff feet. [facility] where he began running back and forth and kicking the doors. Patient was advised to stop kicking doors and sit on the mat. Patient was able to open the south doors by bumping into it four times. The 1:1 staff member observed patient from Nurses station as he is out of control and very combative at this time. Patient has already received his daily IM ativan at 0730 this morning. Addendum: 02/13/19 at 1120 by BEAN AGOSTO RN wrong patient.
[2019-02-12] MEDS: glipiZIDE ER 2.5 MG TAB.ER.24 PO SCH (09:53)
--- NOTE | 2019-02-12 15:00 | NUR ---
Patient took medications whole with water. He spent most of the day in his room laying in his bed. Patient continues to try to drink as much liquid as possible with each meal and between meals. When nurse talked to him about it he said that he just never feels satisfied and is always thirsty. Patient calm and cooperative.
[2019-02-12 16:10] VITALS: BP 131/83
[2019-02-12] MEDS: traZODone 100 MG TABLET. PO SCH (21:11)
[2019-02-12] MEDS: cloZAPine 100 MG TABLET PO SCH (21:11)
[2019-02-12] MEDS: SIMVASTATIN 20 MG TABLET PO SCH (21:12)
[2019-02-12] MEDS: DONEPEZIL HCL 10 MG TABLET PO SCH (21:12)
[2019-02-12] MEDS: INSULIN GLARGINE SYRINGE. SQ SCH (21:18)
--- NOTE | 2019-02-12 21:27 | PDOC ---
Exam Note: Vincent Note: Please also refer to the separate dictated note~for this date of service dictated separately.~Patient seen individually. Discussed the patient with Nursing staff reviewed the chart.~Reviewed interim history and current functioning. Reviewed vital signs,~Labs/ Radiology~and current medications noted below. Continue current treatment with the changes noted in the dictated addendum note Assessment: Vital Signs/I&O: Vital Signs Date Time Temp Pulse Resp B/P (MAP) Pulse Ox O2 Delivery O2 Flow Rate FiO2 02/12/19 16:10 98.2 98 18 131/83 (99) 97 02/09/19 05:54 Room Air I & O 02/11/19 02/11/19 02/12/19 15:00 23:00 07:00 Intake Total 1320 ml 600 ml Balance 1320 ml 600 ml Labs: Laboratory Tests Test 02/12/19 07:57 02/12/19 12:02 02/12/19 17:03 02/12/19 19:10 Glucose (Fingerstick) 115 mg/dL (70-99) H 165 mg/dL (70-99) H 153 mg/dL (70-99) H 188 mg/dL (70-99) H Current Medications: I have reviewed the current psychotropics carefully including drug interactions. Risk benefit ratio favors no change other than as noted in my dictated progress note. Diagnosis: Problems: (1) Agitation (2) Anxiety disorder (3) Schizoaffective disorder, chronic condition with acute exacerbation (4) Impulse control disorder KUNAL BEST MD Feb 12, 2019 21:27
[2019-02-13] MEDS: LEVOTHYROXINE 100 MCG TABLET PO SCH (05:36)
[2019-02-13 05:54] VITALS: BP 142/88
[2019-02-13] MEDS: LUBIPROSTONE 24 MCG CAPSULE PO SCH ×2 (09:19→17:37)
[2019-02-13] MEDS: LITHIUM CARBONATE 300 MG TABLET PO SCH ×2 (09:19→19:28)
[2019-02-13] MEDS: METOPROLOL SUCC 24HR ER 25 MG TAB.ER.24H. PO SCH (09:19)
[2019-02-13] MEDS: glipiZIDE ER 2.5 MG TAB.ER.24 PO SCH (09:19)
[2019-02-13] MEDS: buPROPion XL 150 MG TAB.ER.24H PO SCH (09:20)
[2019-02-13] MEDS: PANTOPRAZOLE 40 MG TABLET. PO SCH (09:20)
[2019-02-13] MEDS: BENZTROPINE MESYLATE 1 MG TABLET PO SCH ×2 (09:20→19:28)
[2019-02-13] MEDS: INSULIN LISPRO 300 UNITS/3 ML VIAL. SQ SCH ×3 (09:23→17:23)
--- NOTE | 2019-02-13 11:17 | NUR ---
Patient came to dining room for breakfast, ate very quickly and returned to his room to go back to bed. Patient is medication compliant and cooperative. When nurse asked patient if he had any pain he stated "just anguish" but was unwilling to explain further when asked. Patient continues to gulp all drinks given to him. He spends most of his time in his room lying face down on his bed and sleeping.
--- NOTE | 2019-02-13 12:49 | NUR ---
Patient drank 1000 ml fluids with lunch and is angry that staff will not give him more tea or water. He is sitting at the table with his head down, lifts it occasionally to say he is thirsty, then puts it back down.
[2019-02-13 15:50] VITALS: BP 103/71
--- NOTE | 2019-02-13 17:10 | NUR ---
Patient spent most of the afternoon in the day room. At approximately 1500 staff observed patient on the floor. Security reviewed the tape and patient was observed placing himself on the floor. It was determined to be a behavior and not a fall. On the tape it was noted that patient started "tremoring" only when staff was aware of his behavior. No injuries occurred. Prior to this event patient had asked for a third Gatorade and been told that two were enough.
--- NOTE | 2019-02-13 18:36 | PN ---
DATE: 02/11/2019 PSYCHIATRIC PROGRESS NOTE This late entry 02/11/2019 covers elements not covered in my initial note. SUBJECTIVE: I met with the patient in the evening. Per Milana RN, the patient slept 8 hours previous night. Remains withdrawn, less agitated. [place] level is 0.8. REVIEW OF SYSTEMS: No CV, , pulmonary, eye system symptoms on review. MENTAL STATUS EXAM: Reasonably oriented. Speech moderate latency, often responses monosyllabic. Abstraction fair, computation impaired, language function intact. Mood and affect withdrawn, less psychotic. LABORATORY DATA: Reviewed. IMPRESSION: Unchanged from initial note. PLAN: No change from initial note. MAN Alan BEST MD DR: MARRY/merced JOB#: [id number] / [id number]
--- NOTE | 2019-02-13 18:39 | PN ---
DATE: 02/12/2019 PSYCHIATRIC PROGRESS NOTE This late entry 02/12/2019 covers elements not covered in my initial note. SUBJECTIVE: I met with the patient in the evening. The patient slept 8-1/2 hours previous night. He has been more awake and alert during the day and interactive, coming out less sedated, but still withdraws and that is where I met with him in his room in the evening. REVIEW OF SYSTEMS: No CV, , pulmonary, eye system symptoms on review. MENTAL STATUS EXAM: Reasonably oriented. Speech is coherent, has some latency. Abstraction fair, computation impaired, language function intact. Mood and affect still withdrawn, but improved. No suicidal ideation. Less paranoid. LABORATORY DATA: Reviewed. IMPRESSION: Schizoaffective disorder, bipolar type, depressed with psychotic features in partial remission. Rest unchanged. PLAN: Change the Celexa to Wellbutrin XL 150 mg in the morning for 3 days, then 300 mg p.o. a.m. thereafter. We will in fact increase this after 2 days. I feel the Wellbutrin should be more activating, energizing, help with his immotivation, apathy, withdrawal status better than the Celexa. Continue lithium, Clozaril, Cogentin may need to be reduced. Maintain Aricept, medroxyprogesterone, trazodone for now. [place] level therapeutic at 0.8. MAN Alan BEST MD DR: MARRY/merced JOB#: [id number] / [id number]
[2019-02-13] MEDS: SIMVASTATIN 20 MG TABLET PO SCH (19:27)
[2019-02-13] MEDS: cloZAPine 100 MG TABLET PO SCH (19:28)
[2019-02-13] MEDS: DONEPEZIL HCL 10 MG TABLET PO SCH (19:28)
[2019-02-13] MEDS: traZODone 100 MG TABLET. PO SCH (19:28)
[2019-02-13] MEDS: INSULIN GLARGINE SYRINGE. SQ SCH (19:33)
--- NOTE | 2019-02-13 21:49 | PDOC ---
Exam Note: Vincent Note: Please also refer to the separate dictated note~for this date of service dictated separately.~Patient seen individually. Discussed the patient with Nursing staff reviewed the chart.~Reviewed interim history and current functioning. Reviewed vital signs,~Labs/ Radiology~and current medications noted below. Continue current treatment with the changes noted in the dictated addendum note Assessment: Vital Signs/I&O: Vital Signs Date Time Temp Pulse Resp B/P (MAP) Pulse Ox O2 Delivery O2 Flow Rate FiO2 02/13/19 15:50 97.2 78 16 103/71 (82) 77 02/13/19 05:54 Nasal Cannula 1.0 I & O 02/12/19 02/12/19 02/13/19 15:00 23:00 07:00 Intake Total 960 ml 760 ml Balance 960 ml 760 ml Labs: Laboratory Tests Test 02/13/19 07:48 02/13/19 12:07 02/13/19 16:58 02/13/19 18:56 Glucose (Fingerstick) 156 mg/dL (70-99) H 129 mg/dL (70-99) H 127 mg/dL (70-99) H 170 mg/dL (70-99) H Current Medications: Meds: Current Medications Medications (Trade) Dose Ordered Sig/Sanna Route PRN Reason Start Time Stop Time Status Last Admin Dose Admin Bupropion HCl (Wellbutrin Xl) 150 mg DAILY PO 02/13/19 09:00 02/15/19 10:00 02/13/19 09:20 I have reviewed the current psychotropics carefully including drug interactions. Risk benefit ratio favors no change other than as noted in my dictated progress note. Diagnosis: Problems: (1) Anxiety disorder (2) Schizoaffective disorder, chronic condition with acute exacerbation (3) Impulse control disorder KUNAL BEST MD Feb 13, 2019 21:49
--- NOTE | 2019-02-14 02:12 | NUR ---
Nursing Note Pt in day room, asking for gator aid, is calm and cooperative, med compliant.
[2019-02-14 05:20] VITALS: BP 133/72
[2019-02-14] MEDS: LEVOTHYROXINE 100 MCG TABLET PO SCH (06:00)
[2019-02-14] MEDS: INSULIN LISPRO 300 UNITS/3 ML VIAL. SQ SCH ×3 (08:00→17:00)
[2019-02-14] MEDS: PANTOPRAZOLE 40 MG TABLET. PO SCH (08:12)
[2019-02-14] MEDS: LUBIPROSTONE 24 MCG CAPSULE PO SCH ×2 (08:12→17:05)
[2019-02-14] MEDS: BENZTROPINE MESYLATE 1 MG TABLET PO SCH ×2 (08:13→20:50)
[2019-02-14] MEDS: glipiZIDE ER 2.5 MG TAB.ER.24 PO SCH (08:13)
[2019-02-14] MEDS: LITHIUM CARBONATE 300 MG TABLET PO SCH ×2 (08:13→20:50)
[2019-02-14] MEDS: buPROPion XL 150 MG TAB.ER.24H PO SCH (08:14)
[2019-02-14] MEDS: METOPROLOL SUCC 24HR ER 25 MG TAB.ER.24H. PO SCH (08:14)
--- NOTE | 2019-02-14 10:23 | NUR ---
Patient was in the dining room during morning rounding, took medications whole, allowed for morning assessment. Patient is laying in bed currently. No agitation noted, pt denies pain. Is withdrawn to his room, will continue to monitor.
[2019-02-14 15:47] VITALS: BP 124/78
[2019-02-14] MEDS: SIMVASTATIN 20 MG TABLET PO SCH (20:50)
[2019-02-14] MEDS: cloZAPine 100 MG TABLET PO SCH (20:50)
[2019-02-14] MEDS: DONEPEZIL HCL 10 MG TABLET PO SCH (20:50)
[2019-02-14] MEDS: traZODone 100 MG TABLET. PO SCH (20:50)
[2019-02-14] MEDS: INSULIN GLARGINE SYRINGE. SQ SCH (21:05)
--- NOTE | 2019-02-14 21:10 | PDOC ---
Exam Note: Vincent Note: Please also refer to the separate dictated note~for this date of service dictated separately.~Patient seen individually. Discussed the patient with Nursing staff reviewed the chart.~Reviewed interim history and current functioning. Reviewed vital signs,~Labs/ Radiology~and current medications noted below. Continue current treatment with the changes noted in the dictated addendum note Assessment: Vital Signs/I&O: Vital Signs Date Time Temp Pulse Resp B/P (MAP) Pulse Ox O2 Delivery O2 Flow Rate FiO2 02/14/19 15:47 98.7 107 20 124/78 (93) 99 02/14/19 05:20 Room Air 02/13/19 05:54 1.0 I & O 02/13/19 02/13/19 02/14/19 14:59 22:59 06:59 Intake Total 1860 ml Balance 1860 ml Labs: Laboratory Tests Test 02/14/19 07:32 02/14/19 12:02 02/14/19 17:02 02/14/19 20:06 Glucose (Fingerstick) 144 mg/dL (70-99) H 234 mg/dL (70-99) H 120 mg/dL (70-99) H 230 mg/dL (70-99) H Current Medications: I have reviewed the current psychotropics carefully including drug interactions. Risk benefit ratio favors no change other than as noted in my dictated progress note. Diagnosis: Problems: (1) Anxiety disorder (2) Schizoaffective disorder, chronic condition with acute exacerbation (3) Impulse control disorder (4) Agitation KUNAL BEST MD Feb 14, 2019 21:10
--- NOTE | 2019-02-15 00:28 | NUR ---
Nursing Note The patient was located in his room for his assessment and medication pass. The patient took his medication whole and was compliant with all cares and interactions. The patient is currently sleeping in his room.
[2019-02-15 05:14] VITALS: BP 143/84
[2019-02-15] MEDS: LEVOTHYROXINE 100 MCG TABLET PO SCH (05:46)
[2019-02-15] MEDS: glipiZIDE ER 2.5 MG TAB.ER.24 PO SCH (08:22)
[2019-02-15] MEDS: buPROPion XL 150 MG TAB.ER.24H PO SCH (08:22)
[2019-02-15] MEDS: METOPROLOL SUCC 24HR ER 25 MG TAB.ER.24H. PO SCH (08:22)
[2019-02-15] MEDS: LUBIPROSTONE 24 MCG CAPSULE PO SCH ×2 (08:22→17:19)
[2019-02-15] MEDS: LITHIUM CARBONATE 300 MG TABLET PO SCH ×2 (08:22→20:16)
[2019-02-15] MEDS: BENZTROPINE MESYLATE 1 MG TABLET PO SCH ×2 (08:22→20:16)
[2019-02-15] MEDS: PANTOPRAZOLE 40 MG TABLET. PO SCH (08:22)
[2019-02-15] MEDS: INSULIN LISPRO 300 UNITS/3 ML VIAL. SQ SCH ×3 (08:28→17:00)
--- NOTE | 2019-02-15 12:52 | PN ---
DATE: 02/14/2019 PSYCHIATRIC PROGRESS NOTE This late entry 02/14/2019 covers elements not covered in my initial note. SUBJECTIVE: I met with the patient evening of 02/14/2019. The patient slept 6 hours previous night. I met with him in his room. He has been less angry, spending much time in bed. REVIEW OF SYSTEMS: No CV, , pulmonary, eye system symptoms on review. MENTAL STATUS EXAM: Oriented to himself and situation. Speech has some latency, often responses monosyllabic. Abstraction fair, computation impaired, language function intact. Mood and affect withdrawn. Social skills are poor. No active hallucinations or suicidal ideation. LABORATORY DATA: Reviewed. IMPRESSION: Unchanged from initial note. PLAN: No change from initial note. Wellbutrin-XL, increase this to 300 mg a day on 02/16/2019. Rest unchanged. MAN Alan BEST MD DR: MARRY/merced JOB#: [id number] / [id number]
--- NOTE | 2019-02-15 14:19 | NUR ---
WEEKLY ACTIVITY THERAPY NOTE Date of Admission: 01/10/2019 Date of AT Assessment: 01/14/2019 Goal aimed: to increase relaxation techniques and leisure engagement Initial goal: Pt. will participate in at least five individual or Activity Therapy groups before discharge. Goal changed 01/24: Pt. will participate in at least one individual Activity Therapy group before discharge. Weekly progress towards goal: achieved 02/20 Group participation level: minimal Weekly highlights: accepted gift and candy cane on Monday for Chiristmas celebration Behaviors observed: sleepy, withdrawn, tremors, laying on the floor Plan: change gol to: Pt. will participate in at least one Activity Therapy group or individual session per week Beneficial adaptations: potentially a drink schedule
--- NOTE | 2019-02-15 14:48 | PN ---
DATE: 02/13/2019 PSYCHIATRIC PROGRESS NOTE This late entry 02/13/2019 covers elements not covered in my initial note. SUBJECTIVE: I met with the patient in the evening. The patient slept 9-1/4 hours previous night. He has been coming out to the day room. He had some tremors earlier in the day. Nursing staff reviewed the security tape and it appeared that per nursing report, this was a fake tremor and the patient was looking out for staff members before he manifested the tremors. He still tries to drink excessive amount of fluids. I addressed this with him, somewhat inappropriate in his social skills, eats the food off the tray of other patients, repeatedly wanting water and Gatorade. I met with him in his room. REVIEW OF SYSTEMS: No CV, , pulmonary, eye system symptoms on review. MENTAL STATUS EXAM: Reasonably oriented. Speech moderate latency, often responses monosyllabic. Abstraction fair, computation impaired, language function intact. Mood and affect withdrawn. LABORATORY DATA: Reviewed. IMPRESSION: Unchanged from initial note. PLAN: No change from initial note, gradually increase the Clozaril as tolerated, lithium therapeutic at 0.8. Maintain Wellbutrin, which is being increased to 300 mg a day and Zoloft was reduced to compensate for this. In fact, the Celexa was stopped when the Wellbutrin was initiated as he was in fact on Celexa, not Zoloft. KUNAL BEST MD DR: MARRY/merced JOB#: [id number] / [id number]
--- NOTE | 2019-02-15 15:29 | NUR ---
SIMI attempted to contact Lu at pt placement and was told she is out today. SIMI spoke with Mark, the DON, to inform him that pt would look at discharging back to them on Monday. SIMI will send updated notes and see about getting transport set up through the [facility] next week as she is out until Monday.
[2019-02-15 15:48] VITALS: BP 116/58
--- NOTE | 2019-02-15 15:56 | NUR ---
Nursing note: Pt was in dining room this morning for meds and assessment. Pt was compliant with meds and was cooperative and interactive with his assessment. He is preoccupied with asking for more to drink. He has been withdrawn to his room for most of the day, but has come out to the day room for a little bit and is withdrawn to himself. Pt is currently in his room sleeping. Will continue to monitor.
[2019-02-15] MEDS: SIMVASTATIN 20 MG TABLET PO SCH (20:15)
[2019-02-15] MEDS: traZODone 100 MG TABLET. PO SCH (20:16)
[2019-02-15] MEDS: DONEPEZIL HCL 10 MG TABLET PO SCH (20:16)
[2019-02-15] MEDS: cloZAPine 100 MG TABLET PO SCH (20:16)
[2019-02-15] MEDS: INSULIN GLARGINE SYRINGE. SQ SCH (21:17)
--- NOTE | 2019-02-15 21:35 | PDOC ---
Exam Note: Vincent Note: Please also refer to the separate dictated note~for this date of service dictated separately.~Patient seen individually. Discussed the patient with Nursing staff reviewed the chart.~Reviewed interim history and current functioning. Reviewed vital signs,~Labs/ Radiology~and current medications noted below. Continue current treatment with the changes noted in the dictated addendum note Assessment: Vital Signs/I&O: Vital Signs Date Time Temp Pulse Resp B/P (MAP) Pulse Ox O2 Delivery O2 Flow Rate FiO2 02/15/19 15:48 98.6 95 18 116/58 (77) 98 02/15/19 05:14 Room Air 02/13/19 05:54 1.0 I & O 0 02/14/19 02/14/19 02/15/19 15:00 23:00 07:00 Intake Total 960 ml 120 ml Balance 960 ml 120 ml Labs: Laboratory Tests Test 02/15/19 07:25 02/15/19 11:32 02/15/19 16:42 02/15/19 19:14 Glucose (Fingerstick) 166 mg/dL (70-99) H 186 mg/dL (70-99) H 106 mg/dL (70-99) H 140 mg/dL (70-99) H Current Medications: I have reviewed the current psychotropics carefully including drug interactions. Risk benefit ratio favors no change other than as noted in my dictated progress note. Diagnosis: Problems: (1) Agitation (2) Anxiety disorder (3) Schizoaffective disorder, chronic condition with acute exacerbation (4) Impulse control disorder KUNAL BEST MD Feb 15, 2019 21:35
--- NOTE | 2019-02-15 23:08 | NUR ---
Pt sitting in day room at shift change. Pt calm, pleasant, social and interactive this evening. Pt cooperative with assessment and compliant with medications administered whole. Pt continues to ask for beverages frequently.
[2019-02-16] MEDS: LEVOTHYROXINE 100 MCG TABLET PO SCH (04:52)
[2019-02-16 05:38] VITALS: BP 137/80
[2019-02-16] MEDS: LITHIUM CARBONATE 300 MG TABLET PO SCH ×2 (08:10→19:43)
[2019-02-16] MEDS: PANTOPRAZOLE 40 MG TABLET. PO SCH (08:10)
[2019-02-16] MEDS: LUBIPROSTONE 24 MCG CAPSULE PO SCH ×2 (08:10→18:25)
[2019-02-16] MEDS: glipiZIDE ER 2.5 MG TAB.ER.24 PO SCH (08:10)
[2019-02-16] MEDS: BENZTROPINE MESYLATE 1 MG TABLET PO SCH ×2 (08:10→19:44)
[2019-02-16] MEDS: METOPROLOL SUCC 24HR ER 25 MG TAB.ER.24H. PO SCH (08:11)
[2019-02-16] MEDS: CHOLECALCIFEROL (VITAMIN D3) 50,000 UNIT CAPSULE PO SCH (08:13)
[2019-02-16] MEDS: buPROPion XL 300 MG TAB.ER.24H. PO SCH (08:13)
[2019-02-16] MEDS: INSULIN LISPRO 300 UNITS/3 ML VIAL. SQ SCH ×3 (08:14→17:00)
[2019-02-16 10:04] LABS: BASO % 0 % (0-3); EOS % 0 % (0-3); HEMATOCRIT 37.9 % (39.0-53.0); HEMOGLOBIN 12.4 g/dL (13.0-17.5); LYMPH # 0.9 x10^3/uL (1.0-4.8); LYMPH % 13 % (24-48); MEAN CORPUSCULAR HEMOGLOBIN 30 pg (25-35); MEAN CORPUSCULAR HGB CONC 33 g/dL (31-37); MEAN CORPUSCULAR VOLUME 90 fL (79-100); MONO # 0.4 x10^3/uL (0.0-1.1); MONO % 6 % (0-9); NEUT # 5.5 x10^3uL (1.8-7.7); NEUT % 80 % (31-73); PLATELET COUNT 172 x10^3/uL (140-400); RED BLOOD COUNT 4.19 x10^6/uL (4.30-5.70); RED CELL DISTRIBUTION WIDTH 14.6 % (11.5-14.5); WHITE BLOOD COUNT 6.9 x10^3/uL (4.0-11.0)
[2019-02-16 10:20] LABS: ALBUMIN 2.7 g/dL (3.4-5.0); ALBUMIN/GLOBULIN RATIO 0.9 (1.0-1.7); CALCIUM 8.5 mg/dL (8.5-10.1); CREATININE 1.5 mg/dL (0.7-1.3); GFR 47.6; POTASSIUM 3.9 mmol/L (3.5-5.1); TOTAL BILIRUBIN 0.5 mg/dL (0.2-1.0); TOTAL PROTEIN 5.8 g/dL (6.4-8.2)
--- NOTE | 2019-02-16 11:38 | NUR ---
Pt is compliant with his medication and assessment. No agitation or aggression. No hallucinations or delusions noted.
--- NOTE | 2019-02-16 13:01 | PN ---
DATE: 02/16/2019 SUBJECTIVE: The patient was seen today, met with the staff, chart reviewed. The patient's behavior has improved slightly. The patient is still awaiting for placement. The patient is no longer having involuntary movements. Apparently, he responded to decrease of lithium. OBSERVATION: VITAL SIGNS: Temperature 97.1, blood pressure 137/80, pulse 98, respiration 18, O2 sat 100%. Slept about 6 hours last night. The patient's appetite is good. The patient is not having any other physical complaints. MEDICATIONS: The patient's current medications include Wellbutrin 300 mg daily, lithium carbonate 300 mg b.i.d., Clozaril 500 mg at night, trazodone 100 mg at night, Aricept 10 mg at night, Cogentin 1 mg b.i.d. and Haldol 5 mg q. 6 hours p.r.n. LABORATORY DATA: The patient's lab reviewed. No significant change from the previous levels. ASSESSMENT: Schizoaffective disorder, bipolar type, generalized anxiety disorder. PLAN: To continue with the treatment. The patient is awaiting placement. JED ESTEVEZ MD DR: AISHWARYA/merced JOB#: [id number] / [id number]
[2019-02-16 15:34] VITALS: BP 104/69
[2019-02-16] MEDS: traZODone 100 MG TABLET. PO SCH (19:43)
[2019-02-16] MEDS: cloZAPine 100 MG TABLET PO SCH (19:43)
[2019-02-16] MEDS: DONEPEZIL HCL 10 MG TABLET PO SCH (19:44)
[2019-02-16] MEDS: SIMVASTATIN 20 MG TABLET PO SCH (19:44)
[2019-02-16] MEDS: INSULIN GLARGINE SYRINGE. SQ SCH (19:49)
[2019-02-17] MEDS: LEVOTHYROXINE 100 MCG TABLET PO SCH (05:07)
[2019-02-17 05:42] VITALS: BP 155/90
[2019-02-17] MEDS: INSULIN LISPRO 300 UNITS/3 ML VIAL. SQ SCH ×3 (08:00→17:00)
[2019-02-17] MEDS: LITHIUM CARBONATE 300 MG TABLET PO SCH ×2 (08:18→20:43)
[2019-02-17] MEDS: buPROPion XL 300 MG TAB.ER.24H. PO SCH (08:18)
[2019-02-17] MEDS: METOPROLOL SUCC 24HR ER 25 MG TAB.ER.24H. PO SCH (08:18)
[2019-02-17] MEDS: BENZTROPINE MESYLATE 1 MG TABLET PO SCH ×2 (08:18→20:43)
[2019-02-17] MEDS: LUBIPROSTONE 24 MCG CAPSULE PO SCH ×2 (08:18→17:00)
[2019-02-17] MEDS: PANTOPRAZOLE 40 MG TABLET. PO SCH (08:19)
[2019-02-17] MEDS: glipiZIDE ER 2.5 MG TAB.ER.24 PO SCH (08:19)
[2019-02-17 16:12] VITALS: BP 105/72
--- NOTE | 2019-02-17 16:31 | NUR ---
Pt up for meals. Has been catalino euphoric and social during meals. Out to day room most of day. Compliant with meds and cares.
[2019-02-17] MEDS: DONEPEZIL HCL 10 MG TABLET PO SCH (20:43)
[2019-02-17] MEDS: SIMVASTATIN 20 MG TABLET PO SCH (20:43)
[2019-02-17] MEDS: traZODone 100 MG TABLET. PO SCH (20:43)
[2019-02-17] MEDS: cloZAPine 100 MG TABLET PO SCH (20:43)
[2019-02-17] MEDS: INSULIN GLARGINE SYRINGE. SQ SCH (20:46)
--- NOTE | 2019-02-17 21:25 | PN ---
DATE: 02/17/2019 SUBJECTIVE: The patient was seen today, met with the staff, and chart was reviewed. The patient's behavior remains the same, some improvement. The patient has been out of his room most of the time, participating in activities. The patient is still complaining of his water restriction. OBSERVATION: VITAL SIGNS: Temperature 98.2, blood pressure 155/90, pulse 112, respirations 20, and O2 sat 100%. GENERAL: Slept about 6 hours the last night. The patient's appetite is improved. LABORATORY DATA: Reviewed. CURRENT MEDICATIONS: Include Wellbutrin 300 mg daily, lithium carbonate 300 mg b.i.d., Clozaril 500 mg at night, Cogentin 1 mg b.i.d. p.o., Aricept 10 mg at night, and Haldol 5 mg q. 6 hours p.r.n. ASSESSMENT: 1. Schizoaffective disorder, bipolar type. 2. Generalized anxiety disorder. PLAN: To continue with the treatment. The patient is still awaiting for a placement. JED ESTEVEZ MD DR: AISHWARYA/merced JOB#: [id number] / [id number]
--- NOTE | 2019-02-17 22:44 | NUR ---
Nsg Note: Patient was in day room with head down on table at time of medication administration and assessments. Patient was cooperative and compliant with cares, slightly irritable and sarcastic. Patient went to bed shortly after this interaction. No other notable behaviors at this time.
[2019-02-18] MEDS: LEVOTHYROXINE 100 MCG TABLET PO SCH (05:45)
[2019-02-18 05:54] VITALS: BP 108/70
[2019-02-18] MEDS: LITHIUM CARBONATE 300 MG TABLET PO SCH ×2 (08:08→20:17)
[2019-02-18] MEDS: glipiZIDE ER 2.5 MG TAB.ER.24 PO SCH (08:08)
[2019-02-18] MEDS: BENZTROPINE MESYLATE 1 MG TABLET PO SCH ×2 (08:08→20:17)
[2019-02-18] MEDS: LUBIPROSTONE 24 MCG CAPSULE PO SCH ×2 (08:08→17:15)
[2019-02-18] MEDS: PANTOPRAZOLE 40 MG TABLET. PO SCH (08:08)
[2019-02-18] MEDS: buPROPion XL 300 MG TAB.ER.24H. PO SCH (08:09)
[2019-02-18] MEDS: METOPROLOL SUCC 24HR ER 25 MG TAB.ER.24H. PO SCH (08:09)
[2019-02-18] MEDS: INSULIN LISPRO 300 UNITS/3 ML VIAL. SQ SCH ×3 (08:10→17:16)
--- NOTE | 2019-02-18 10:34 | NUR ---
Pt is compliant with his medication and assessment. No hallucinations or delusions noted. During breakfast pt was eating his food very fast and chugging liquids to the point he would choke. Staff removed items from his tray and told him for safety they will give them to him one item at a time. This made him angry and he yelled at a SECY "give me my food now!" Staff deescalated pt and pt was able to stay in the dining room and finish his breakfast.
--- NOTE | 2019-02-18 15:06 | NUR ---
SIMI followed up with SIMI Salgado at [facility] re: pt discharge on Monday. Damian will have transportation set up and plan to call the unit he morning of discharge to go over transport time. SIMI will send update notes for pt facility to have and contact Elizabeth with that update.
[2019-02-18 15:52] VITALS: BP 105/66
[2019-02-18 18:25] LABS: BASO % 0 % (0-3); EOS % 0 % (0-3); HEMOGLOBIN 13.7 g/dL (13.0-17.5); LYMPH # 1.6 x10^3/uL (1.0-4.8); LYMPH % 18 % (24-48); MEAN CORPUSCULAR HEMOGLOBIN 30 pg (25-35); MEAN CORPUSCULAR HGB CONC 34 g/dL (31-37); MEAN CORPUSCULAR VOLUME 89 fL (79-100); MONO % 10 % (0-9); NEUT # 6.6 x10^3uL (1.8-7.7); NEUT % 72 % (31-73); PLATELET COUNT 227 x10^3/uL (140-400); RED BLOOD COUNT 4.49 x10^6/uL (4.30-5.70); RED CELL DISTRIBUTION WIDTH 14.6 % (11.5-14.5); WHITE BLOOD COUNT 9.2 x10^3/uL (4.0-11.0)
[2019-02-18] MEDS: DONEPEZIL HCL 10 MG TABLET PO SCH (20:16)
[2019-02-18] MEDS: traZODone 100 MG TABLET. PO SCH (20:17)
[2019-02-18] MEDS: cloZAPine 100 MG TABLET PO SCH (20:17)
[2019-02-18] MEDS: SIMVASTATIN 20 MG TABLET PO SCH (20:17)
--- NOTE | 2019-02-18 21:12 | PDOC ---
Exam Note: Vincent Note: Please also refer to the separate dictated note~for this date of service dictated separately.~Patient seen individually. Discussed the patient with Nursing staff reviewed the chart.~Reviewed interim history and current functioning. Reviewed vital signs,~Labs/ Radiology~and current medications noted below. Continue current treatment with the changes noted in the dictated addendum note Assessment: Vital Signs/I&O: Vital Signs Date Time Temp Pulse Resp B/P (MAP) Pulse Ox O2 Delivery O2 Flow Rate FiO2 02/18/19 15:52 98.7 100 16 105/66 (79) 98 02/16/19 05:38 Room Air 02/13/19 05:54 1.0 I & O 02/17/19 02/17/19 02/18/19 15:00 23:00 07:00 Intake Total 1800 ml 1150 ml Balance 1800 ml 1150 ml Labs: Laboratory Tests Test 02/18/19 07:54 02/18/19 12:01 02/18/19 16:54 02/18/19 18:16 Glucose (Fingerstick) 184 mg/dL (70-99) H 196 mg/dL (70-99) H 96 mg/dL (70-99) White Blood Count 9.2 x10^3/uL (4.0-11.0) Red Blood Count 4.49 x10^6/uL (4.30-5.70) Hemoglobin 13.7 g/dL (13.0-17.5) Hematocrit 40.0 % (39.0-53.0) Mean Corpuscular Volume 89 fL (79-100) Mean Corpuscular Hemoglobin 30 pg (25-35) Mean Corpuscular Hemoglobin Concent 34 g/dL (31-37) Red Cell Distribution Width 14.6 % (11.5-14.5) H Platelet Count 227 x10^3/uL (140-400) Neutrophils (%) (Auto) 72 % (31-73) Lymphocytes (%) (Auto) 18 % (24-48) L Monocytes (%) (Auto) 10 % (0-9) H Eosinophils (%) (Auto) 0 % (0-3) Basophils (%) (Auto) 0 % (0-3) Neutrophils # (Auto) 6.6 x10^3uL (1.8-7.7) Lymphocytes # (Auto) 1.6 x10^3/uL (1.0-4.8) Monocytes # (Auto) 1.0 x10^3/uL (0.0-1.1) Eosinophils # (Auto) 0.0 x10^3/uL (0.0-0.7) Basophils # (Auto) 0.0 x10^3/uL (0.0-0.2) Test 02/18/19 19:30 Glucose (Fingerstick) 255 mg/dL (70-99) H Current Medications: I have reviewed the current psychotropics carefully including drug interactions. Risk benefit ratio favors no change other than as noted in my dictated progress note. Diagnosis: Problems: (1) Anxiety disorder (2) Schizoaffective disorder, chronic condition with acute exacerbation (3) Impulse control disorder KUNAL BEST MD Feb 18, 2019 21:12
[2019-02-18] MEDS: INSULIN GLARGINE SYRINGE. SQ SCH (21:25)
--- NOTE | 2019-02-18 22:48 | PN ---
DATE: 02/15/2019 PSYCHIATRIC PROGRESS NOTE This late entry 02/15/2019 covers elements not covered in my initial note. SUBJECTIVE: I met with the patient evening of 02/15/2019 and staffed at a treatment team meeting with the entire team earlier in the day. The patient slept 7-1/2 hours previous night. He remains withdrawn, has been talking to himself frequently wanting excessive amounts of water. He is tolerating the Clozaril. REVIEW OF SYSTEMS: Positive for tiredness. No CV, , pulmonary, eye system symptoms on review. MENTAL STATUS EXAM: Reasonably oriented. Speech moderate latency, often responses monosyllabic. Abstraction fair, computation impaired, language function intact, attention span short. Mood and affect withdrawn. LABORATORY DATA: Reviewed. IMPRESSION: Unchanged from initial note. PLAN: No change from initial note. We may need to increase Clozaril further post next set of labs. Rest unchanged for now. KUNAL BEST MD DR: MARRY/merced JOB#: [id number] / [id number]
--- NOTE | 2019-02-19 02:18 | NUR ---
Last evening pt sat quietly in day room resting head on table. He was eager for HS meds so he could go to bed. Meds were taken whole without difficulty. Any water provided for pt was rapidly consumed. After going to bed he has been sleeping well. No behaviors tonight.
[2019-02-19 05:18] VITALS: BP 95/59
[2019-02-19] MEDS: LEVOTHYROXINE 100 MCG TABLET PO SCH (05:43)
[2019-02-19] MEDS: PANTOPRAZOLE 40 MG TABLET. PO SCH (08:45)
[2019-02-19] MEDS: buPROPion XL 300 MG TAB.ER.24H. PO SCH (08:45)
[2019-02-19] MEDS: LITHIUM CARBONATE 300 MG TABLET PO SCH ×2 (08:46→19:44)
[2019-02-19] MEDS: LUBIPROSTONE 24 MCG CAPSULE PO SCH ×2 (08:46→17:16)
[2019-02-19] MEDS: BENZTROPINE MESYLATE 1 MG TABLET PO SCH ×2 (08:46→19:46)
[2019-02-19] MEDS: METOPROLOL SUCC 24HR ER 25 MG TAB.ER.24H. PO SCH (08:46)
[2019-02-19] MEDS: glipiZIDE ER 2.5 MG TAB.ER.24 PO SCH (08:46)
[2019-02-19] MEDS: INSULIN LISPRO 300 UNITS/3 ML VIAL. SQ SCH ×3 (08:49→17:18)
--- NOTE | 2019-02-19 13:44 | NUR ---
[facility] Social Work Discharge Planning Form Patient Name SEAN FONTAINE Admit Date: 01/10/19 DISCHARGE PLAN Discharge Destination: Pt to return to [facility] Care Assessment: N/A Level II Assessment: N/A Transportation: Facility to pick pt up; will call first thing in the morning with a molded goods spot picker time. Special Instructions/Notes: Please fax discharge orders and discharge medication list to the fax number listed below. DISCHARGE TO FACILITY Facility: [facility] Address: [address] [place] [address] Contact Name: Lu (DON) or Damian (Traffic Workforce Representative): Contact Name: Elizabeth Alexandra (Public Logistics Director): PCP: Dr. Bergeron
--- NOTE | 2019-02-19 14:55 | NUR ---
Patient cooperative with meds, compliant. patient in day room most of shift, participated in relaxation group. No adverse behaviors noted.
--- NOTE | 2019-02-19 15:58 | NUR ---
Assumed care of patient around 1515. Patient is currently in the dayroom. Will continue to monitor.
[2019-02-19 16:16] VITALS: BP 125/74
[2019-02-19] MEDS: traZODone 100 MG TABLET. PO SCH (19:44)
[2019-02-19] MEDS: DONEPEZIL HCL 10 MG TABLET PO SCH (19:45)
[2019-02-19] MEDS: SIMVASTATIN 20 MG TABLET PO SCH (19:46)
[2019-02-19] MEDS: INSULIN GLARGINE SYRINGE. SQ SCH (20:50)
[2019-02-19] MEDS ORDERED: cloZAPine 100 MG TABLET PO SCH (21:00)
[2019-02-19] MEDS ORDERED: cloZAPine 25 MG TABLET PO SCH (21:00)
--- NOTE | 2019-02-19 21:30 | PDOC ---
Exam Note: Vincent Note: Please also refer to the separate dictated note~for this date of service dictated separately.~Patient seen individually. Discussed the patient with Nursing staff reviewed the chart.~Reviewed interim history and current functioning. Reviewed vital signs,~Labs/ Radiology~and current medications noted below. Continue current treatment with the changes noted in the dictated addendum note Assessment: Vital Signs/I&O: Vital Signs Date Time Temp Pulse Resp B/P (MAP) Pulse Ox O2 Delivery O2 Flow Rate FiO2 02/19/19 16:16 97.3 98 18 125/74 (91) 100 02/16/19 05:38 Room Air I & O 02/18/19 02/18/19 02/19/19 15:00 23:00 07:00 Intake Total 1260 ml 1000 ml Balance 1260 ml 1000 ml Labs: Laboratory Tests Test 02/19/19 07:32 02/19/19 12:00 02/19/19 16:51 02/19/19 19:24 Glucose (Fingerstick) 167 mg/dL (70-99) H 202 mg/dL (70-99) H 160 mg/dL (70-99) H 189 mg/dL (70-99) H Current Medications: Meds: Current Medications Medications (Trade) Dose Ordered Sig/Sanna Route PRN Reason Start Time Stop Time Status Last Admin Dose Admin Clozapine (Clozaril) 500 mg QHS PO 02/19/19 21:00 02/19/19 19:45 Clozapine (Clozaril) 25 mg QHS PO 02/19/19 21:00 02/19/19 19:45 I have reviewed the current psychotropics carefully including drug interactions. Risk benefit ratio favors no change other than as noted in my dictated progress note. Diagnosis: Problems: (1) Agitation (2) Anxiety disorder (3) Schizoaffective disorder, chronic condition with acute exacerbation (4) Impulse control disorder KUNAL BEST MD Feb 19, 2019 21:30
--- NOTE | 2019-02-20 01:19 | NUR ---
Last maxim pt was in day room until bedtime. He was social and took meds whole without difficulty. No behaviors tonight.
[2019-02-20] MEDS ORDERED: ACET325T21 PO (01:59)
[2019-02-20] MEDS ORDERED: CHOL500021 PO (02:00)
[2019-02-20] MEDS ORDERED: MAG30ORA2 PO (02:05)
[2019-02-20] MEDS ORDERED: MAGN296S68 PO (02:06)
[2019-02-20] MEDS ORDERED: MAGN2400 PO (02:08)
[2019-02-20] MEDS ORDERED: METH28OI2 TP (02:09)
[2019-02-20] MEDS ORDERED: BUPR300T3 PO (02:10)
[2019-02-20] MEDS ORDERED: LEVO100T5 PO (02:13)
[2019-02-20] MEDS ORDERED: BENZ1TAB5 PO (02:13)
[2019-02-20] MEDS ORDERED: INSU100I13 SQ (02:15)
[2019-02-20] MEDS ORDERED: INSU100V38 SQ (02:29)
[2019-02-20 05:15] VITALS: BP 115/77
[2019-02-20] MEDS: LEVOTHYROXINE 100 MCG TABLET PO SCH (05:43)
[2019-02-20] MEDS: INSULIN LISPRO 300 UNITS/3 ML VIAL. SQ SCH ×2 (09:13→13:02)
--- NOTE | 2019-02-20 09:14 | NUR ---
Non administered 0800 insulin as it is not available on the unit at this time and Pharmacy has none as they are waiting on a shipment of more insulin from [place]. Patients blood sugar was 156.
[2019-02-20] MEDS: glipiZIDE ER 2.5 MG TAB.ER.24 PO SCH (09:23)
[2019-02-20] MEDS: BENZTROPINE MESYLATE 1 MG TABLET PO SCH (09:23)
[2019-02-20] MEDS: LITHIUM CARBONATE 300 MG TABLET PO SCH (09:23)
[2019-02-20] MEDS: LUBIPROSTONE 24 MCG CAPSULE PO SCH (09:23)
[2019-02-20 09:24] VITALS: BP 115/77
[2019-02-20] MEDS: buPROPion XL 300 MG TAB.ER.24H. PO SCH (09:24)
[2019-02-20] MEDS: PANTOPRAZOLE 40 MG TABLET. PO SCH (09:24)
[2019-02-20] MEDS: METOPROLOL SUCC 24HR ER 25 MG TAB.ER.24H. PO SCH (09:24)
--- NOTE | 2019-02-20 10:18 | NUR ---
Patient compliant with medications. He returned to bed and went back to sleep after breakfast. Patient has flat affect and did not seem excited to be discharging today. Patient has had no paranoia, is eating and drinking well, sleeping good and is medication compliant. Patient got 7 hours of sleep last night.
--- NOTE | 2019-02-20 11:14 | NUR ---
Facility called and set up picking machine operator time for 1100. They then called back and changed it to 1400. Report given via phone to Charge Nurse VIRY Schneider at 1100 and discharge medication list faxed. Facility stated they did not receive the prior copy that was faxed earlier in the day (we had a fax confirmation sheet).
--- NOTE | 2019-02-20 13:25 | NUR ---
Transition Record was faxed to follow-up provider with the following elements: Reason for admission, procedures, tests, principal diagnosis, pending studies, patient instructions, 12/09 contact information for unit, phone number to obtain pending test results, plan for follow-up care, physician follow-up, advanced directive information, and medication list with dose, duration and instructions. This information was included in the following documents: History and physical, lab results, study results, progress notes, social work planning form, DC instruction form, patient visit summary, and medication reconciliation form. Date & time record faxed: 02/20/19 [phone] Record faxed to: alysa at [facility] [phone] Record discussed with/ report given to: VIRY Schneider
--- NOTE | 2019-02-22 01:05 | PN ---
DATE: 02/18/2019 PSYCHIATRIC PROGRESS NOTE This late entry, 02/18/2019, covers elements not covered in my initial note. SUBJECTIVE: I met with the patient in the evening. Per Milana RN, the patient slept 7 hours previous night. He has poor social skills, gobbles down his food, tends to choke at times, yelling when staff tried to help slow this down for him. REVIEW OF SYSTEMS: No CV, , pulmonary, eye, ENT system symptoms on review. MENTAL STATUS EXAM: Oriented to himself and situation. Speech has some latency, often responses monosyllabic. Abstraction fair, computation impaired, language function intact. Mood and affect withdrawn. LABORATORY DATA: Reviewed. IMPRESSION: Unchanged from initial note. PLAN: No change from initial note. MAN Alan BEST MD DR: MARRY/merced JOB#: [id number] / [id number]
--- NOTE | 2019-02-22 01:24 | PN ---
DATE: 02/19/2019 PSYCHIATRIC PROGRESS NOTE This late entry 02/19/2019 covers elements not covered in my initial note. SUBJECTIVE: I met with the patient in the evening. Per VIRY Logan, the patient slept 7 hours previous night. WBC 9.2, neutrophils 72%, absolute neutrophil count 6624. He remains somewhat withdrawn, anxious. REVIEW OF SYSTEMS: No CV, , pulmonary, eye system symptoms on review. MENTAL STATUS EXAMINATION: Oriented to self, situation. Speech moderate latency, often responses monosyllabic. Abstraction fair, computation impaired, language function intact. Mood and affect withdrawn. LABORATORY DATA: Reviewed. IMPRESSION: Unchanged from initial note. PLAN: Increase the Depakote ER from 500 t.i.d. to 625 t.i.d. since a valproic acid level is 31, subtherapeutic on the lower dosage. Check CBC, CMP, valproic acid level in 3 days. Rest unchanged for now. KUNAL BEST MD DR: MARRY/merced JOB#: [id number] / [id number]
--- NOTE | 2019-02-26 10:06 | DS ---
DATE OF DISCHARGE: 02/20/2019 DISCHARGE SUMMARY AND PSYCHIATRIC PROGRESS NOTE This late entry, date of service 02/20/2019, covers elements not covered in my initial note. REASON FOR ADMISSION: Please refer to the admission history for details. Briefly, the patient is a 63-year-old male referred to us from [facility] with a diagnosis of schizoaffective disorder, bipolar type with psychotic features and major depressive disorder. He was having self-neglect, was paranoid, not eating or taking his medications since 01/02/2019. He was psychotic, pacing with marked insomnia, agitated, isolative, combative towards staff since 01/08/2019. He had failed outpatient psychiatric interventions and was referred for inpatient psychiatric stabilization. SIGNIFICANT FINDINGS AND CLINICAL COURSE: Following admission, the patient was seen daily individually by myself from a psychiatric standpoint, medical followup with Dr. Vera. The patient was extremely withdrawn, paranoid, psychotic. Adjustments were made in his psychotropics. He seemed to respond to a combination of Wellbutrin-XL 300 mg a day, Clozaril 500 mg at bedtime and CBC, absolute neutrophil counts remained stable. Cogentin 1 mg b.i.d. and gradually this could be tapered. Aricept was 10 mg at bedtime, lithium carbonate 300 mg b.i.d. as a mood stabilizer with a lithium level of 0.8 and he remained on medroxyprogesterone 5 mg b.i.d., trazodone 100 mg at bedtime, Haldol 5 mg q. 6 hours p.r.n. psychosis and agitation. REVIEW OF SYSTEMS: Prior to discharge on 02/20/2019, no CV, , pulmonary, eye, ENT system symptoms on review. He was less tired coming out more for activities and groups. MENTAL STATUS EXAM: Oriented to himself and situation. Speech has some latency, often responses monosyllabic. Abstraction fair, computation impaired, language function intact, attention span short. Mood and affect remain withdrawn, but much less so than before and psychotic symptoms are much improved. No suicidal or homicidal ideation at discharge. CONDITION AT DISCHARGE: Improved. FINAL DIAGNOSES: Schizoaffective disorder, bipolar type, mixed with psychotic features, in partial remission; anxiety disorder, unspecified; major depressive disorder in partial remission; impulse control disorder. Rest unchanged from admission. DISCHARGE MEDICATIONS: Please refer to the [facility]. He will need weekly CBC, absolute neutrophil counts to monitor his blood work on Clozaril and lithium level every 2-3 months including a TSH every 2-3 months since he is on the lithium. DISCHARGE INSTRUCTIONS: [facility] Time for discharge day management greater than 30 minutes. MAN Alan BEST MD DR: MARRY/merced JOB#: [id number] / [id number]
== END 2019-02-20 13:28 | DRG 885 ==
LOC: GEROPSY 22:45
PROVIDERS: ADMIT Psychiatry & Neurology Psychiatry; ATTEND Psychiatry & Neurology Psychiatry
DX: F25.0 Schizoaffective disorder, bipolar type (principal); E87.0 Hyperosmolality and hypernatremia; E03.9 Hypothyroidism, unspecified; E11.9 Type 2 diabetes mellitus without complications; F41.1 Generalized anxiety disorder; F63.9 Impulse disorder, unspecified; G47.00 Insomnia, unspecified; E55.9 Vitamin D deficiency, unspecified; E78.5 Hyperlipidemia, unspecified; F03.90 Unspecified dementia, unspecified severity, without behavioral disturbance, psychotic disturbance, mood disturbance, and anxiety; G25.3 Myoclonus; I10 Essential (primary) hypertension; Z79.899 Other long term (current) drug therapy; N40.0 Benign prostatic hyperplasia without lower urinary tract symptoms; K59.00 Constipation, unspecified
CPT/HCPCS: 36415; 70450; 71045; 74176; 80048; 80053; 80061; 80178; 81001; 82306; 82550; 82607; 82947; 83036; 83540; 83550; 83605; 83735; 83930; 83935; 84436; 84443; 84480; 85007; 85025; 86592; 90471; 90686; J1815; J3420; J7030

== ENCOUNTER 2019-08-09 19:02 | Inpatient (IN) | payer MEDICARE, MEDICAID ==
[~2019-08-09] VITALS: Ht 170.2 cm; Wt 61.0 kg
[~2019-08-09 19:02] MED LIST changes: +ACET325T21 PO; +BENZ1TAB5 PO; +BUPR300T3 PO; +CHOL500021 PO; +INSU100I13 SQ; +INSU100V38 SQ; +LEVO100T5 PO; +MAG30ORA2 PO; +MAGN24003 PO; +MAGN296S68 PO; -MEGE400O2 PO; +MEGE400O6 PO; +METH28OI2 TP
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
--- NOTE | 2019-08-09 19:54 | RAD ---
EXAM: Chest, single view. HISTORY: Dyspnea. COMPARISON: 01/31/2019 FINDINGS: A frontal view of the chest is obtained. There is no infiltrate, pleural effusion or pneumothorax. The heart is normal in size. IMPRESSION: No acute pulmonary finding. Electronically signed by: Yvette Perry MD (08/09/2019 7:51 PM) [facility]
[2019-08-09] MEDS ORDERED: IV RINGERS SOLUTION,LACTATED 1,000 ML IV SCH (20:00)
--- NOTE | 2019-08-09 20:08 | RAD ---
CT scan of the head without contrast 08/09/2019 Clinical History: Mental status changes. Technique: Unenhanced, contiguous, 5 mm axial sections were obtained through the head. One or more of the following individualized dose reduction techniques were utilized for this study: 1. Automated exposure control. 2. Adjustment of the mA and/or kV according to patient size. 3. Use of iterative reconstruction technique. Findings: Comparison study is dated 01/28/2019. There is generalized parenchymal atrophy. Areas of decreased attenuation are seen within the periventricular and subcortical white matter of both cerebral hemispheres consistent with areas of small vessel ischemic disease. No acute parenchymal abnormality is seen. No extra-axial fluid collection is noted. No skull fracture is seen. Impression: No acute intracranial abnormality is seen. CT scan of the cervical spine without contrast 08/09/2019 Clinical history: Fall with neck injury. Technique: Unenhanced, contiguous, 0.625 mm axial sections were obtained through the cervical spine. Axial, coronal and sagittal reconstructed images were obtained. One or more of the following individualized dose reduction techniques were utilized for this study: 1. Automated exposure control. 2. Adjustment of the mA and/or kV according to patient size. 3. Use of iterative reconstruction technique. Findings: Sagittal and coronal reconstructed images demonstrate mild lateral curvature of the cervical spine, convex to the right. There is slight reversal of the normal cervical lordosis. Degenerative changes consisting of varying degrees of disc space narrowing, vertebral endplate sclerosis and mild to moderate anterior and posterior vertebral body osteophyte formation are seen involving the mid and lower cervical disc spaces. No fracture or subluxation of the cervical vertebrae is seen. Degenerative changes are seen involving the uncovertebral and facet joints throughout the cervical disc spaces. Impression: No fracture or subluxation of the cervical vertebra is identified. Electronically signed by: Parmjit Beyer MD (08/09/2019 8:05 PM) [id number]
[2019-08-09 20:28] LABS: BASO % 0 % (0-3); EOS % 0 % (0-3); HEMATOCRIT 42.5 % (39.0-53.0); LYMPH # 1.8 x10^3/uL (1.0-4.8); LYMPH % 14 % (24-48); MEAN CORPUSCULAR HEMOGLOBIN 29 pg (25-35); MEAN CORPUSCULAR HGB CONC 33 g/dL (31-37); MEAN CORPUSCULAR VOLUME 89 fL (79-100); MONO # 1.1 x10^3/uL (0.0-1.1); MONO % 9 % (0-9); NEUT # 9.4 x10^3uL (1.8-7.7); NEUT % 77 % (31-73); PLATELET COUNT 293 x10^3/uL (140-400); RED BLOOD COUNT 4.75 x10^6/uL (4.30-5.70); RED CELL DISTRIBUTION WIDTH 15.6 % (11.5-14.5); WHITE BLOOD COUNT 12.3 x10^3/uL (4.0-11.0)
[2019-08-09 20:37] LABS: CALCIUM 10.1 mg/dL (8.5-10.1); CREATININE 2.1 mg/dL (0.7-1.3); GFR 32.3; POTASSIUM 3.7 mmol/L (3.5-5.1)
[2019-08-09 20:51] LABS: ALBUMIN 3.5 g/dL (3.4-5.0); C REACTIVE PROTEIN 9.2 mg/L (0-3.3); DIRECT BILIRUBIN 0.2 mg/dL (0.0-0.2); MAGNESIUM 2.1 mg/dL (1.8-2.4); TOTAL BILIRUBIN 0.8 mg/dL (0.2-1.0); TOTAL PROTEIN 7.1 g/dL (6.4-8.2)
[2019-08-09 20:58] LABS: COLOR,URINE YELLOW
[2019-08-09 20:59] LABS: AMORPHOUS SEDIMENT,UR PRESENT /HPF; BACTERIA,URINE 0 /HPF (0-FEW); BILIRUBIN,URINE NEG (NEG); CLARITY,URINE HAZY; GLUCOSE,URINE NEG (NEG); HYALINE CASTS, URINE FEW /HPF; NITRITE,URINE NEG (NEG); RBC,URINE OCC /HPF (0-2); SQUAMOUS EPITHELIAL CELL,UR FEW /LPF; WBC,URINE OCC /HPF (0-4)
[2019-08-09 21:11] LABS: BARBITURATES NEG (NEG); BENZODIAZEPINES NEG (NEG); CANNABINOIDS NEG (NEG); COCAINE NEG (NEG); METHADONE NEG (NEG); OPIATES NEG (NEG); PHENCYCLIDINE NEG (NEG)
[2019-08-09 21:12] LABS: AMPHETAMINE/METHAMPHETAMINE NEG (NEG)
[2019-08-09] MEDS ORDERED: BENZ2TAB5 PO (21:33)
[2019-08-09] MEDS ORDERED: HALO2TAB PO ×2 (21:33)
[2019-08-09] MEDS ORDERED: ACET650T6 PO (21:33)
[2019-08-09] MEDS ORDERED: DOCU100C28 PO (21:33)
[2019-08-09] MEDS ORDERED: ACETAMINOPHEN 325 MG TABLET PO PRN ×2 (21:45→23:00)
[2019-08-09 21:47] LABS: % BANDS 1 % (0-9); % LYMPHS 16 % (24-48); % METAS 1 % (0-0); % MONOS 6 % (0-10); % SEGS 76 % (35-66)
[2019-08-09 21:48] LABS: PLT ESTIMATE ADEQUATE (ADEQUATE)
[2019-08-09 22:55] VITALS: BP 96/64
[2019-08-09] MEDS ORDERED: HALOPERIDOL 2 MG TABLET PO PRN (23:00)
[2019-08-09] MEDS ORDERED: ACETAMINOPHEN 650 MG PO PRN (23:00)
[2019-08-09] MEDS ORDERED: MAG HYDROX/AL HYDROX/SIMETH 30 ML ORAL.SUSP PO PRN (23:00)
[2019-08-09] MEDS ORDERED: METHYL SALICYLATE/MENTHOL TOPICAL OINTMENT 57GM TUBE. TP PRN (23:15)
[2019-08-09] MEDS ORDERED: MAGNESIUM HYDROXIDE 2,400 MG/30 ML ORAL.SUSP. PO PRN (23:15)
[2019-08-09] MEDS: HALOPERIDOL 2 MG TABLET PO SCH (23:45)
[2019-08-09] MEDS: cloZAPine 25 MG TABLET PO SCH (23:45)
[2019-08-09] MEDS: DONEPEZIL HCL 10 MG TABLET PO SCH (23:46)
[2019-08-09] MEDS: DOCUSATE SODIUM 100 MG CAPSULE PO SCH (23:46)
[2019-08-09] MEDS: cloZAPine 100 MG TABLET PO SCH (23:46)
[2019-08-09] MEDS: BENZTROPINE MESYLATE 1 MG TABLET PO SCH (23:46)
[2019-08-09] MEDS: SIMVASTATIN 20 MG TABLET PO SCH (23:46)
[2019-08-09] MEDS: traZODone 100 MG TABLET. PO SCH (23:46)
[2019-08-09] MEDS: LITHIUM CARBONATE 300 MG TABLET PO SCH (23:46)
--- NOTE | 2019-08-10 01:06 | EKG ---
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
[2019-08-10] MEDS: LEVOTHYROXINE 100 MCG TABLET PO SCH (05:40)
[2019-08-10 05:59] VITALS: BP 107/72
[2019-08-10] MEDS ORDERED: IPRATRPIUM/ALBUTEROL 0.5/2.5MG 3 ML NEBU. NEB SCH (08:00)
[2019-08-10] MEDS: LITHIUM CARBONATE 300 MG TABLET PO SCH ×2 (08:28→21:37)
[2019-08-10] MEDS: glipiZIDE ER 2.5 MG TAB.ER.24 PO SCH (08:29)
[2019-08-10] MEDS: METOPROLOL SUCC 24HR ER 25 MG TAB.ER.24H. PO SCH (08:29)
[2019-08-10] MEDS: buPROPion XL 300 MG TAB.ER.24H. PO SCH (08:29)
[2019-08-10] MEDS: DOCUSATE SODIUM 100 MG CAPSULE PO SCH ×2 (08:29→21:38)
[2019-08-10] MEDS: PANTOPRAZOLE 40 MG TABLET. PO SCH (08:29)
[2019-08-10] MEDS: BENZTROPINE MESYLATE 1 MG TABLET PO SCH ×2 (08:29→21:37)
[2019-08-10] MEDS: HALOPERIDOL 2 MG TABLET PO SCH ×3 (08:29→21:38)
--- NOTE | 2019-08-10 08:52 | PDOC ---
Exam Note: Vincent Note: Please also refer to the separate dictated note~for this date of service dictated separately.~Patient seen individually. Discussed the patient with Nursing staff reviewed the chart.~Reviewed interim history and current functioning. Reviewed vital signs,~Labs/ Radiology~and current medications noted below. Continue current treatment with the changes noted in the dictated addendum note Assessment: Vital Signs/I&O: Vital Signs Date Time Temp Pulse Resp B/P (MAP) Pulse Ox O2 Delivery O2 Flow Rate FiO2 08/10/19 08:29 103 107/72 08/10/19 05:59 98.3 18 98 08/09/19 20:37 Room Air I & O 08/09/19 08/09/19 08/10/19 14:59 22:59 06:59 Intake Total 1000 ml Balance 1000 ml Labs: Laboratory Tests Test 08/09/19 20:10 08/09/19 20:30 08/10/19 07:57 White Blood Count 12.3 x10^3/uL (4.0-11.0) H Red Blood Count 4.75 x10^6/uL (4.30-5.70) Hemoglobin 14.0 g/dL (13.0-17.5) Hematocrit 42.5 % (39.0-53.0) Mean Corpuscular Volume 89 fL (79-100) Mean Corpuscular Hemoglobin 29 pg (25-35) Mean Corpuscular Hemoglobin Concent 33 g/dL (31-37) Red Cell Distribution Width 15.6 % (11.5-14.5) H Platelet Count 293 x10^3/uL (140-400) Neutrophils (%) (Auto) 77 % (31-73) H Lymphocytes (%) (Auto) 14 % (24-48) L Monocytes (%) (Auto) 9 % (0-9) Eosinophils (%) (Auto) 0 % (0-3) Basophils (%) (Auto) 0 % (0-3) Neutrophils # (Auto) 9.4 x10^3uL (1.8-7.7) H Lymphocytes # (Auto) 1.8 x10^3/uL (1.0-4.8) Monocytes # (Auto) 1.1 x10^3/uL (0.0-1.1) Eosinophils # (Auto) 0.0 x10^3/uL (0.0-0.7) Basophils # (Auto) 0.0 x10^3/uL (0.0-0.2) Segmented Neutrophils % 76 % (35-66) H Band Neutrophils % 1 % (0-9) Lymphocytes % 16 % (24-48) L Monocytes % 6 % (0-10) Metamyelocytes % 1 % (0-0) H Platelet Estimate Adequate (ADEQUATE) Prothrombin Time 10.1 SEC (9.4-11.4) Prothrombin Time INR 1.0 (0.9-1.1) Activated Partial Thromboplast Time 22 SEC (23-33) L D-Dimer (Jinny) 0.36 mg/L (0.00-0.50) Sodium Level 144 mmol/L (136-145) Potassium Level 3.7 mmol/L (3.5-5.1) Chloride Level 105 mmol/L (98-107) Carbon Dioxide Level 31 mmol/L (21-32) Anion Gap 8 (6-14) Blood Urea Nitrogen 46 mg/dL (8-26) H Creatinine 2.1 mg/dL (0.7-1.3) H Estimated GFR (Cockcroft-Gault) 32.3 Glucose Level 157 mg/dL (70-99) H Calcium Level 10.1 mg/dL (8.5-10.1) Magnesium Level 2.1 mg/dL (1.8-2.4) Total Bilirubin 0.8 mg/dL (0.2-1.0) Direct Bilirubin 0.2 mg/dL (0.0-0.2) Aspartate Amino Transferase (AST) 22 U/L (15-37) Alanine Aminotransferase (ALT) 60 U/L (16-63) Alkaline Phosphatase 103 U/L (46-116) Creatine Kinase 132 U/L (39-308) Troponin I Quantitative < 0.017 ng/mL (0-0.055) C-Reactive Protein 9.2 mg/L (0-3.3) H KB-Nxw-B-Type Natriuretic Peptide 261 pg/mL (0-124) H Total Protein 7.1 g/dL (6.4-8.2) Albumin 3.5 g/dL (3.4-5.0) Lipase 140 U/L (73-393) Urine Collection Type U cath Urine Color Yellow Urine Clarity Hazy Urine pH 5.0 Urine Specific Egan 1.025 Urine Protein Trace (NEG-TRACE) Urine Glucose (UA) Neg mg/dL (NEG) Urine Ketones (Stick) 15 mg/dL (NEG) Urine Blood Neg (NEG) Urine Nitrite Neg (NEG) Urine Bilirubin Neg (NEG) Urine Urobilinogen Dipstick 1.0 mg/dL (0.2 mg/dL) Urine Leukocyte Esterase Neg (NEG) Urine RBC Occ /HPF (0-2) Urine WBC Occ /HPF (0-4) Urine Squamous Epithelial Cells Few /LPF Urine Amorphous Sediment Present /HPF Urine Bacteria 0 /HPF (0-FEW) Urine Hyaline Casts Few /HPF Urine Mucus Slight /LPF Urine Opiates Screen Neg (NEG) Urine Methadone Screen Neg (NEG) Urine Barbiturates Neg (NEG) Urine Phencyclidine Screen Neg (NEG) Urine Amphetamine/Methamphetamine Neg (NEG) Urine Benzodiazepines Screen Neg (NEG) Urine Cocaine Screen Neg (NEG) Urine Cannabinoids Screen Neg (NEG) Urine Ethyl Alcohol Neg (NEG) Glucose (Fingerstick) 120 mg/dL (70-99) H Current Medications: Meds: Current Medications Medications (Trade) Dose Ordered Sig/Sanna Route PRN Reason Start Time Stop Time Status Last Admin Dose Admin Lactated Ringer's 1,000 ml @ 100 mls/hr Q10H IV 08/09/19 20:00 08/10/19 06:00 DC 08/09/19 20:20 Bupropion HCl (Wellbutrin Xl) 300 mg DAILY PO 08/10/19 09:00 08/10/19 08:29 Clozapine (Clozaril) 500 mg HS PO 08/10/19 00:00 08/09/19 23:46 Donepezil HCl (Aricept) 10 mg HS PO 08/10/19 00:00 08/09/19 23:46 Haloperidol (Haldol) 2 mg TID PO 08/10/19 00:00 08/10/19 08:29 Medroxyprogesterone Acetate (Provera) 5 mg BID PO 08/10/19 00:00 08/10/19 08:29 Trazodone HCl (Desyrel) 100 mg QHS PO 08/10/19 00:00 08/09/19 23:46 Benztropine Mesylate (Cogentin) 2 mg BID PO 08/10/19 00:00 08/10/19 08:29 Ruskin Carbonate 300 mg BID PO 08/10/19 00:00 08/10/19 08:28 Docusate Sodium (Colace) 100 mg BID PO 08/10/19 00:00 08/10/19 08:29 Glipizide (Glucotrol Er) 2.5 mg DAILY PO 08/10/19 09:00 08/10/19 08:29 Levothyroxine Sodium (Synthroid) 100 mcg DAILY06 PO 08/10/19 06:00 08/10/19 05:40 Metoprolol Succinate (Toprol Xl) 25 mg DAILY PO 08/10/19 09:00 08/10/19 08:29 Pantoprazole Sodium (Protonix) 40 mg DAILYAC PO 08/10/19 07:30 08/10/19 08:29 Simvastatin (Zocor) 20 mg QHS PO 08/10/19 00:00 08/09/19 23:46 Clozapine (Clozaril) 25 mg QHS PO 08/10/19 00:00 08/09/19 23:45 I have reviewed the current psychotropics carefully including drug interactions. Risk benefit ratio favors no change other than as noted in my dictated progress note. Diagnosis: Problems: (1) Anxiety disorder (2) Schizoaffective disorder, chronic condition with acute exacerbation (3) Impulse control disorder KUNAL BEST MD Aug 10, 2019 08:52
[2019-08-10 10:12] LABS: BASO % 0 % (0-3); EOS % 0 % (0-3); HEMATOCRIT 37.8 % (39.0-53.0); HEMOGLOBIN 12.3 g/dL (13.0-17.5); LYMPH # 1.2 x10^3/uL (1.0-4.8); LYMPH % 19 % (24-48); MEAN CORPUSCULAR HEMOGLOBIN 29 pg (25-35); MEAN CORPUSCULAR HGB CONC 33 g/dL (31-37); MEAN CORPUSCULAR VOLUME 90 fL (79-100); MONO # 0.5 x10^3/uL (0.0-1.1); MONO % 9 % (0-9); NEUT # 4.5 x10^3uL (1.8-7.7); NEUT % 73 % (31-73); PLATELET COUNT 228 x10^3/uL (140-400); RED BLOOD COUNT 4.22 x10^6/uL (4.30-5.70); RED CELL DISTRIBUTION WIDTH 15.4 % (11.5-14.5); WHITE BLOOD COUNT 6.2 x10^3/uL (4.0-11.0)
[2019-08-10 10:23] LABS: ALBUMIN 3.1 g/dL (3.4-5.0); CALCIUM 9.5 mg/dL (8.5-10.1); CREATININE 1.6 mg/dL (0.7-1.3); GFR 44.2; POTASSIUM 3.6 mmol/L (3.5-5.1); TOTAL BILIRUBIN 1.1 mg/dL (0.2-1.0); TOTAL PROTEIN 6.2 g/dL (6.4-8.2)
[2019-08-10 16:27] VITALS: BP 98/65
[2019-08-10] MEDS: CHOLECALCIFEROL (VITAMIN D3) 50,000 UNIT CAPSULE PO SCH (17:01)
[2019-08-10] MEDS: SIMVASTATIN 20 MG TABLET PO SCH (21:37)
[2019-08-10] MEDS: cloZAPine 100 MG TABLET PO SCH (21:37)
[2019-08-10] MEDS: cloZAPine 25 MG TABLET PO SCH (21:38)
[2019-08-10] MEDS: DONEPEZIL HCL 10 MG TABLET PO SCH (21:38)
[2019-08-10] MEDS: traZODone 100 MG TABLET. PO SCH (21:38)
[2019-08-11 02:06] LABS: HEMOGLOBIN A1C 5.8 % (4.8-5.6); THYROXINE 7.2 ug/dL (4.5-12.0)
[2019-08-11] MEDS: LEVOTHYROXINE 100 MCG TABLET PO SCH (05:28)
[2019-08-11 06:19] VITALS: BP 94/65
[2019-08-11] MEDS: METOPROLOL SUCC 24HR ER 25 MG TAB.ER.24H. PO SCH (08:15)
[2019-08-11] MEDS: glipiZIDE ER 2.5 MG TAB.ER.24 PO SCH (08:15)
[2019-08-11] MEDS: BENZTROPINE MESYLATE 1 MG TABLET PO SCH ×2 (08:15→20:26)
[2019-08-11] MEDS: PANTOPRAZOLE 40 MG TABLET. PO SCH (08:16)
[2019-08-11] MEDS: DOCUSATE SODIUM 100 MG CAPSULE PO SCH ×2 (08:16→20:25)
[2019-08-11] MEDS: HALOPERIDOL 2 MG TABLET PO SCH ×2 (08:16→12:24)
[2019-08-11] MEDS: LITHIUM CARBONATE 300 MG TABLET PO SCH ×2 (08:16→20:27)
[2019-08-11] MEDS: buPROPion XL 300 MG TAB.ER.24H. PO SCH (08:16)
--- NOTE | 2019-08-11 09:00 | HP ---
ADMIT DATE: 08/10/2019 PSYCHIATRIC ADMISSION HISTORY AND EVALUATION This late entry 08/10/2019 covers elements not covered in my initial note. IDENTIFYING DATA: The patient is a 63-year-old male referred back to us from [facility], referred by Dr. Bergeron, his primary care physician and Dr. Bagley, psychiatrist after he failed outpatient psychiatric interventions. He is increasingly psychotic within the context of schizoaffective disorder, bipolar type. He has been refusing his medication, refusing meals because he just wants to . He has been increasingly agitated, verbally aggressive, paranoid, suspicious. He has failed outpatient psychiatric interventions resulting in this referral. CHIEF COMPLAINT: "I don't care." The patient is lying in bed, head down, but verbally interact with me. HISTORY OF PRESENT ILLNESS: The patient has a history of schizoaffective disorder, bipolar type, anxiety disorder, impulse control disorder. He has been residing at the above facility for some time and has had a prior inpatient psychiatric hospitalization at [facility] with us. He has been stable until recently when he has had acute exacerbation of his paranoia, psychosis, refusing meals and fleeting suicidal ideation. He denies active suicidal ideation. He does have a history of mood swings. PAST PSYCHIATRIC HISTORY: As above. MEDICAL HISTORY: Positive for hypothyroidism, type 2 diabetes mellitus, hyperlipidemia, hypertension, recurrent UTIs. DIET: Dysphagia to honey thickened. Ambulates ad venu. CODE STATUS: Full code. ALLERGIES: Negative. CURRENT PSYCHOTROPICS: Cogentin 1 mg b.i.d., Wellbutrin 300 mg a day, Clozaril 25 mg at bedtime, Aricept 10 mg a day, Haldol 2 mg three times a day, lithium carbonate 300 mg b.i.d., Provera 5 mg b.i.d., trazodone mg at bedtime, Haldol 2 mg t.i.d. p.r.n. psychosis. FAMILY HISTORY: Noncontributory. SOCIAL HISTORY: No history of alcohol, drug abuse, physical, sexual or elder abuse. Not known to be a perpetrator. REVIEW OF SYSTEMS: Positive for tiredness. No CV, , pulmonary, eye system symptoms on review. MENTAL STATUS EXAMINATION: The patient was seen individually evening of 08/10/2019. He is oriented to himself. Speech is often responses monosyllabic, has some latency. Abstraction fair, computation impaired, language function intact, attention span short. He is quite paranoid, suspicious. Mood and affect withdrawn. He denies active suicidal ideation. LABORATORY DATA: Reviewed. IMPRESSION: Schizoaffective disorder, bipolar type, mixed with psychotic features versus bipolar disorder, mixed with psychotic features, depressed, anxiety disorder, unspecified, impulse control disorder, unspecified. Rest as above. PLAN: Admit to Geropsychiatry Unit at [facility]. I will see the patient daily individually from a psychiatric standpoint. Medical followup per Dr. Vera/Dr. Muhammad. We will check his WBC and absolute neutrophil counts weekly as he is on Clozaril. Consider stopping the lithium since he is on Haldol, changing the Haldol or stopping it since he is on the Clozaril best to avoid 2 antipsychotics in combination. This may help stop the Cogentin as well, may need to increase the Wellbutrin, consider Depakote as a mood stabilizer. ESTIMATED LENGTH OF STAY: 10-12 days. DISPOSITION: Plans back to half-way when stable. KUNAL BEST MD DR: MARRY/merced JOB#: [id number] / [id number]
--- NOTE | 2019-08-11 12:47 | CONS ---
DATE OF CONSULTATION: REASON FOR CONSULTATION: Medical management. HISTORY OF PRESENT ILLNESS: The patient is a 63-year-old male patient, a resident at [facility], who was admitted to senior behavioral unit on account of refusing medication, refusing meals because he just wants to , has increased agitation, verbal aggression, suicidal ideation, all this in a background of schizoaffective bipolar-type anxiety and impulse control disorder. He apparently was found unresponsive on 07/20/2019 with recurrent tonic-clonic seizures. He was on the ventilator from 07/20/2019 to 08/02/2019. He was discharged to [facility] on 08/08/2019 and was admitted to this facility on 08/09/2019 on account of his making suicidal ideation and wanting to . PAST MEDICAL HISTORY: Significant for hypertension, hyperlipidemia, type 2 diabetes, hypothyroidism, anxiety and depression, osteoarthritis, and schizophrenia. PAST SURGICAL HISTORY: Significant for appendectomy, tonsillectomy. ALLERGIES: He has no known drug allergies. MEDICATIONS: He is currently on following medications: He is currently on Aricept 10 mg once a day, simvastatin 20 mg at bedtime, metoprolol succinate 25 mg once a day, analgesic balm applied topically daily, acetaminophen 650 mg every 6 hours, Wellbutrin-XL 300 mg once a day, trazodone 100 mg at bedtime, clozapine ____ mg at bedtime. He is on haloperidol 2 mg 3 times a day as needed, lithium carbonate 300 mg twice a day, benztropine mesylate 2 mg twice a day, Maalox 15 mL as needed. He is on Colace 100 mg twice a day, milk of magnesia 30 mL p.o. daily p.r.n. for constipation. He is on Protonix 40 mg once a day, glipizide 2.5 mg once a day, medroxyprogesterone 5 mg twice a day, levothyroxine sodium 100 mcg once a day, cyanocobalamin 1000 mcg/mL once every month and cholecalciferol 50,000 units once weekly. FAMILY HISTORY: Unremarkable. SOCIAL HISTORY: He apparently is single, never , has no children of his own. He does not smoke, drink alcohol. On questioning him, he basically wanted to have diet Sprite and he wanted thin liquid. Apparently, he has severe dysphagia and we have already consulted the speech therapist to come and see him after he gets off of his quarantine. PHYSICAL EXAMINATION: GENERAL: When I saw him this afternoon, he looked well and was clearly in no apparent respiratory distress. He was somewhat cachectic, but no jaundice, cyanosis or thyromegaly. No jugular venous distention. No limb edema. VITAL SIGNS: His heart rate was 102, blood pressure was 98/65, temperature was 98, respiratory rate 20, and oxygen saturation was 97%. HEAD, EYES, EARS, NOSE AND THROAT: Normocephalic, atraumatic. NECK: Supple. HEART: Showed normal first and second heart sounds. No gallop, rub or murmur. CHEST: Clear to auscultation. No crepitation or rhonchi. ABDOMEN: Scaphoid, soft, nontender. No guarding or rigidity. No organomegaly. All hernial orifices intact. Bowel sounds normal. NEUROLOGIC: He was definitely awake, alert. All his cranial nerves are intact. EXTREMITIES: He moves extremities without difficulty, although he is very unsteady on his feet. LABORATORY DATA: His lab work showed that his white cell count was 12,300, hemoglobin 14, hematocrit 42, MCV 89 and platelet count 293,000. His chemistry showed a serum sodium 144, potassium 3.7, chloride 105, bicarbonate 31, anion gap of 8, BUN 46, creatinine 2.1, estimated GFR was 52 mL per minute. His glucose 157, calcium was ____, magnesium was 2.1. Total bilirubin, AST, ALT, alkaline phosphatase were normal. His CK was 132. C-reactive protein was 9.2. Total protein was 7.1, albumin 3.5. His serum lipase was 114. His TSH was normal at 1.431. Serum triglycerides were 158, total cholesterol 192, LDL was 121, VLDL was 31, HDL was 40 and ratio was 4. Serum iron was 42, TIBC was 318 and iron saturation was 13%. His prothrombin time, INR and aPTT normal. D-dimer was 0.36. Urinalysis was basically unremarkable. Toxicology screen was essentially negative. His actually lithium level was 0.4 millimoles per liter, which is below therapeutic range. CT scan of his head and cervical spine showed that the patient has generalized parenchymal atrophy, areas of decreased attenuation are seen within the periventricular and subcortical white matter of both cerebral hemispheres consistent with areas of small vessel ischemic disease. No acute parenchymal abnormality seen. No extraaxial fluid collection is noted. No skull fracture is seen. CT scan of the cervical spine without contrast showed that the patient has no fracture or subluxation of cervical vertebrae seen. Degenerative changes are seen involving the uncovertebral and facet joints throughout the cervical disk spaces. IMPRESSION: In summary, this is a 63-year-old male patient who was admitted on account of refusing medication, refusing meals because he just wants to with increased agitation, verbal aggression and suicidal ideation. His past medical history is significant for type 2 diabetes mellitus, hypertension, hyperlipidemia, hypothyroidism, chronic kidney disease and past psychiatric history is significant for schizoaffective disorder, bipolar type, schizophrenia, anxiety and impulse control disorder. All in all, he seemed to be medically stable. His medications are appropriate. His lab work showed that his lithium level is subtherapeutic. His chemistry showed that his kidney function is slightly improving. His creatinine came down from 2.1 to 1.6. PLAN: My plan is to monitor his labs closely. We did his C-reactive protein which was 9.2 mg per liter. Given his amount of weight loss, we will obviously have to monitor also his H and H although his thyroid function is normal at 1.431. Thank you, Dr. George for allowing me to participate in the care of this patient. STEPHANIE GAMING MD DR: JAY/merced JOB#: [id number] / [id number]
[2019-08-11 16:29] VITALS: BP 91/60
[2019-08-11] MEDS: cloZAPine 100 MG TABLET PO SCH (20:24)
[2019-08-11] MEDS: traZODone 100 MG TABLET. PO SCH (20:25)
[2019-08-11] MEDS: SIMVASTATIN 20 MG TABLET PO SCH (20:26)
[2019-08-11] MEDS: DONEPEZIL HCL 10 MG TABLET PO SCH (20:27)
[2019-08-11] MEDS: cloZAPine 25 MG TABLET PO SCH (20:27)
--- NOTE | 2019-08-11 22:52 | PDOC ---
Exam Note: Vincent Note: Please also refer to the separate dictated note~for this date of service dictated separately.~Patient seen individually. Discussed the patient with Nursing staff reviewed the chart.~Reviewed interim history and current functioning. Reviewed vital signs,~Labs/ Radiology~and current medications noted below. Continue current treatment with the changes noted in the dictated addendum note Assessment: Vital Signs/I&O: Vital Signs Date Time Temp Pulse Resp B/P (MAP) Pulse Ox O2 Delivery O2 Flow Rate FiO2 08/11/19 16:29 97.4 98 18 91/60 (70) 97 08/10/19 16:27 Room Air I & O 08/10/19 08/10/19 08/11/19 15:00 23:00 07:00 Intake Total 720 ml 240 ml 360 ml Balance 720 ml 240 ml 360 ml Labs: Laboratory Tests Test 08/11/19 07:24 Glucose (Fingerstick) 119 mg/dL (70-99) H Current Medications: Meds: Current Medications Medications (Trade) Dose Ordered Sig/Sanna Route PRN Reason Start Time Stop Time Status Last Admin Dose Admin Clozapine (Clozaril) 50 mg QHS PO 08/11/19 21:00 08/11/19 20:27 I have reviewed the current psychotropics carefully including drug interactions. Risk benefit ratio favors no change other than as noted in my dictated progress note. Diagnosis: Problems: (1) Schizoaffective disorder, bipolar type (2) Bipolar disorder with psychotic features (3) Schizoaffective disorder, chronic condition with acute exacerbation (4) Anxiety disorder (5) Impulse control disorder KUNAL BEST MD Aug 11, 2019 22:52
[2019-08-12] MEDS: LEVOTHYROXINE 100 MCG TABLET PO SCH (05:14)
[2019-08-12 06:37] VITALS: BP 107/71
[2019-08-12 06:58] LABS: BASO % 0 % (0-3); EOS % 0 % (0-3); HEMATOCRIT 37.6 % (39.0-53.0); HEMOGLOBIN 12.3 g/dL (13.0-17.5); LYMPH # 1.6 x10^3/uL (1.0-4.8); LYMPH % 30 % (24-48); MEAN CORPUSCULAR HEMOGLOBIN 29 pg (25-35); MEAN CORPUSCULAR HGB CONC 33 g/dL (31-37); MEAN CORPUSCULAR VOLUME 90 fL (79-100); MONO # 0.5 x10^3/uL (0.0-1.1); MONO % 9 % (0-9); NEUT # 3.3 x10^3uL (1.8-7.7); NEUT % 61 % (31-73); PLATELET COUNT 220 x10^3/uL (140-400); RED BLOOD COUNT 4.18 x10^6/uL (4.30-5.70); RED CELL DISTRIBUTION WIDTH 15.6 % (11.5-14.5); WHITE BLOOD COUNT 5.5 x10^3/uL (4.0-11.0)
[2019-08-12 07:07] LABS: CALCIUM 9.4 mg/dL (8.5-10.1); CREATININE 1.6 mg/dL (0.7-1.3); GFR 44.2; POTASSIUM 3.9 mmol/L (3.5-5.1); TOTAL BILIRUBIN 0.7 mg/dL (0.2-1.0); TOTAL PROTEIN 5.9 g/dL (6.4-8.2)
[2019-08-12] MEDS: buPROPion XL 300 MG TAB.ER.24H. PO SCH (10:03)
[2019-08-12] MEDS: METOPROLOL SUCC 24HR ER 25 MG TAB.ER.24H. PO SCH (10:03)
[2019-08-12] MEDS: LITHIUM CARBONATE 300 MG TABLET PO SCH ×2 (10:03→20:46)
[2019-08-12] MEDS: BENZTROPINE MESYLATE 1 MG TABLET PO SCH ×2 (10:03→20:46)
[2019-08-12] MEDS: DOCUSATE SODIUM 100 MG CAPSULE PO SCH ×2 (10:03→20:45)
[2019-08-12] MEDS: PANTOPRAZOLE 40 MG TABLET. PO SCH (10:03)
[2019-08-12] MEDS: glipiZIDE ER 2.5 MG TAB.ER.24 PO SCH (10:04)
--- NOTE | 2019-08-12 11:18 | PDOC ---
Exam Note: Vincent Note: This note is a late entry for 08/11/2019 covers elements not covered in my initial note. Subjective: The patient was seen individually the evening of 08/11/2019. Per Ge BAIRES, he slept 2-1/2 hours previous night. [place] level 0.4. He did well this morning. I have talked to nursing staff couple of times in between the visits. He was suicidal at admission and nursing staff is keeping a close watch on him. He states he likes 7-Up and Sprite and we will request the nursing staff to make this more readily available for him. We will check his weekly CBC, absolute neutrophil counts. He is lying in bed, met with him at great length in his room. Review of Systems: Ambulation impaired at times but otherwise he ambulates Ad venu. No CV, , pulmonary, eye system symptoms on review. Mental Status Exam: Reasonably oriented. Speech moderate latency. Often response is monosyllabic. Abstraction fair. Computation impaired. Language function intact. Mood and affect withdrawn. Laboratory Data: Reviewed. Impression: Schizoaffective disorder, bipolar type mixed with psychotic features. Anxiety disorder unspecified. Impulse control disorder unspecified. Plan: Check weekly CBC on Monday for his absolute neutrophil count on Clozaril. Increase Clozaril to from 525 mg h.s. to 550 mg h.s. DC the Haldol currently 2 mg t.i.d. since he is on the Clozaril. Currently WBC is 6.2, neutrophil 73%, absolute neutrophil count is stable. We may considering tapering and stopping Cogentin in the future. I discussed all of this at great length with the patient. Assessment: Vital Signs/I&O: Vital Signs Date Time Temp Pulse Resp B/P (MAP) Pulse Ox O2 Delivery O2 Flow Rate FiO2 08/12/19 10:03 105 107/71 08/12/19 06:37 98.5 16 96 08/10/19 16:27 Room Air I & O 08/11/19 08/11/19 08/12/19 15:00 23:00 07:00 Intake Total 480 ml 240 ml Output Total 240 ml Balance 240 ml 240 ml Labs: Laboratory Tests Test 08/12/19 06:45 08/12/19 07:33 White Blood Count 5.5 x10^3/uL (4.0-11.0) Red Blood Count 4.18 x10^6/uL (4.30-5.70) L Hemoglobin 12.3 g/dL (13.0-17.5) L Hematocrit 37.6 % (39.0-53.0) L Mean Corpuscular Volume 90 fL (79-100) Mean Corpuscular Hemoglobin 29 pg (25-35) Mean Corpuscular Hemoglobin Concent 33 g/dL (31-37) Red Cell Distribution Width 15.6 % (11.5-14.5) H Platelet Count 220 x10^3/uL (140-400) Neutrophils (%) (Auto) 61 % (31-73) Lymphocytes (%) (Auto) 30 % (24-48) Monocytes (%) (Auto) 9 % (0-9) Eosinophils (%) (Auto) 0 % (0-3) Basophils (%) (Auto) 0 % (0-3) Neutrophils # (Auto) 3.3 x10^3uL (1.8-7.7) Lymphocytes # (Auto) 1.6 x10^3/uL (1.0-4.8) Monocytes # (Auto) 0.5 x10^3/uL (0.0-1.1) Eosinophils # (Auto) 0.0 x10^3/uL (0.0-0.7) Basophils # (Auto) 0.0 x10^3/uL (0.0-0.2) Sodium Level 147 mmol/L (136-145) H Potassium Level 3.9 mmol/L (3.5-5.1) Chloride Level 113 mmol/L (98-107) H Carbon Dioxide Level 31 mmol/L (21-32) Anion Gap 3 (6-14) L Blood Urea Nitrogen 17 mg/dL (8-26) Creatinine 1.6 mg/dL (0.7-1.3) H Estimated GFR (Cockcroft-Gault) 44.2 BUN/Creatinine Ratio 11 (6-20) Glucose Level 109 mg/dL (70-99) H Calcium Level 9.4 mg/dL (8.5-10.1) Total Bilirubin 0.7 mg/dL (0.2-1.0) Aspartate Amino Transferase (AST) 11 U/L (15-37) L Alanine Aminotransferase (ALT) 36 U/L (16-63) Alkaline Phosphatase 81 U/L (46-116) Total Protein 5.9 g/dL (6.4-8.2) L Albumin 3.0 g/dL (3.4-5.0) L Albumin/Globulin Ratio 1.0 (1.0-1.7) Glucose (Fingerstick) 92 mg/dL (70-99) Current Medications: Meds: Current Medications Medications (Trade) Dose Ordered Sig/Sanna Route PRN Reason Start Time Stop Time Status Last Admin Dose Admin Clozapine (Clozaril) 50 mg QHS PO 08/11/19 21:00 08/11/19 20:27 I have reviewed the current psychotropics carefully including drug interactions. Risk benefit ratio favors no change other than as noted in my dictated progress note. Diagnosis: Problems: (1) Schizoaffective disorder, bipolar type (2) Bipolar disorder with psychotic features (3) Impulse control disorder (4) Schizoaffective disorder, chronic condition with acute exacerbation (5) Anxiety disorder KUNAL BEST MD Aug 12, 2019 11:18
--- NOTE | 2019-08-12 15:53 | TX PLAN ---
Interdisciplinary Tx Plan Admission Information Aug 09, 2019 at 22:33 Legal Status (on Admission): Voluntary DPOA/Guardian Name: Elizabeth Alexandra (Public Melting Operator) Contact Other Contact Name: Grand Mullen Other Contact Verified Code Status: Full Code Allergies: Coded Allergies: No Known Drug Allergies (Unverified , 01/09/19) Diagnoses Primary Diagnosis: Schizoaffective D/O, Bipolar type; anxiety unspecified; impulse control d/o Reasons for Admission: Depressed, Angry, Anxiety/Panic, Suicidal ideation, Poor impulse control Problem in Patient's Words: N/A Additional Admission Comments: According to the intake, pt is refusing medications, refusing meals because he wants to , increase in agitation and SI. Problems Active Problems: Non-compliant with medications Refusal of meds Somewhat demanding Swallow concerns Inactive Problems: Appropriate during Covoid isolation Pt Strengths/Limitations Ability for Mineral: Poor Cognitive Functioning/Ability: Fair Communication Skills/Ability: Fair Financial Resources: Fair Insight/Judgement: Poor Intellectual Ability: Fair Physical Health: Poor Social Skills: Fair Stability in Family: Poor Stability in School/Work: Poor Verbal Skills: Fair Discharge Criteria Discharge Criteria: Able meet basic life need, Adequate arrangements @DC, Improved behavior, Improved mood/thought Preliminary Discharge Plan Preliminary DC Plan: Current Living Arrange., Outpatient Followup Special Precautions Special Precautions: Swallowing/Choking Fall Risk: Low Initial D/C Plan Pt will plan to return to [facility] in [place] Identified Discharge Needs: Continued psychiatric services Safety Plan Currently Utilized Resources Currently Utilized Resources/P: Continued PCP services Does have a psychiatrist Identified Problems/Hx/Goals Objectives/Short-Term Goals Short Term Goals: Medication Stabilization, Monitor Med Effects, No Suicidal/Malachi. ideation, Promote Coping Skill Short Term Goals in Patient's: N/A Interventions/Frequency Staff Interventions/Frequency&: Psychiatrist to assess pt at least 3x per week. Social Work to assess pt at least 2x per week. Nursing to assess bx, medications and complete 15 minute checks daily. Encourage group particpation in activities or 1:1 engagement dependent on Activity Dept assessment and goals. 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 Did not work afterwards due to his diagnosis. Education: [facility] Follow-up Primary Care Physician Psychiatrist Treatment Plan Explained Patient/Bilingual School Psychologist had this treatment plan explained to him/her as indicated by the signature below and has been given the opportunity to ask questions and make suggestions: Date: Patient/Bilingual School Psychologist Signature: Patient/Bilingual School Psychologist Decline: No (Pt has a Public Melting Operator who will be involved) JUAN MANUEL COMER Aug 12, 2019 15:53
[2019-08-12 16:16] VITALS: BP 94/64
[2019-08-12] MEDS: SIMVASTATIN 20 MG TABLET PO SCH (20:45)
[2019-08-12] MEDS: traZODone 100 MG TABLET. PO SCH (20:45)
[2019-08-12] MEDS: cloZAPine 25 MG TABLET PO SCH (20:46)
[2019-08-12] MEDS: cloZAPine 100 MG TABLET PO SCH (20:46)
[2019-08-12] MEDS: DONEPEZIL HCL 10 MG TABLET PO SCH (20:46)
--- NOTE | 2019-08-12 22:46 | PDOC ---
Exam Note: Vincent Note: Please also refer to the separate dictated note~for this date of service dictated separately.~Patient seen individually. Discussed the patient with Nursing staff reviewed the chart.~Reviewed interim history and current functioning. Reviewed vital signs,~Labs/ Radiology~and current medications noted below. Continue current treatment with the changes noted in the dictated addendum note Assessment: Vital Signs/I&O: Vital Signs Date Time Temp Pulse Resp B/P (MAP) Pulse Ox O2 Delivery O2 Flow Rate FiO2 08/12/19 16:16 98.7 99 18 94/64 (74) 97 08/10/19 16:27 Room Air I & O 08/11/19 08/11/19 08/12/19 15:00 23:00 07:00 Intake Total 480 ml 240 ml Output Total 240 ml Balance 240 ml 240 ml Labs: Laboratory Tests Test 08/12/19 06:45 08/12/19 07:33 White Blood Count 5.5 x10^3/uL (4.0-11.0) Red Blood Count 4.18 x10^6/uL (4.30-5.70) L Hemoglobin 12.3 g/dL (13.0-17.5) L Hematocrit 37.6 % (39.0-53.0) L Mean Corpuscular Volume 90 fL (79-100) Mean Corpuscular Hemoglobin 29 pg (25-35) Mean Corpuscular Hemoglobin Concent 33 g/dL (31-37) Red Cell Distribution Width 15.6 % (11.5-14.5) H Platelet Count 220 x10^3/uL (140-400) Neutrophils (%) (Auto) 61 % (31-73) Lymphocytes (%) (Auto) 30 % (24-48) Monocytes (%) (Auto) 9 % (0-9) Eosinophils (%) (Auto) 0 % (0-3) Basophils (%) (Auto) 0 % (0-3) Neutrophils # (Auto) 3.3 x10^3uL (1.8-7.7) Lymphocytes # (Auto) 1.6 x10^3/uL (1.0-4.8) Monocytes # (Auto) 0.5 x10^3/uL (0.0-1.1) Eosinophils # (Auto) 0.0 x10^3/uL (0.0-0.7) Basophils # (Auto) 0.0 x10^3/uL (0.0-0.2) Sodium Level 147 mmol/L (136-145) H Potassium Level 3.9 mmol/L (3.5-5.1) Chloride Level 113 mmol/L (98-107) H Carbon Dioxide Level 31 mmol/L (21-32) Anion Gap 3 (6-14) L Blood Urea Nitrogen 17 mg/dL (8-26) Creatinine 1.6 mg/dL (0.7-1.3) H Estimated GFR (Cockcroft-Gault) 44.2 BUN/Creatinine Ratio 11 (6-20) Glucose Level 109 mg/dL (70-99) H Calcium Level 9.4 mg/dL (8.5-10.1) Total Bilirubin 0.7 mg/dL (0.2-1.0) Aspartate Amino Transferase (AST) 11 U/L (15-37) L Alanine Aminotransferase (ALT) 36 U/L (16-63) Alkaline Phosphatase 81 U/L (46-116) Total Protein 5.9 g/dL (6.4-8.2) L Albumin 3.0 g/dL (3.4-5.0) L Albumin/Globulin Ratio 1.0 (1.0-1.7) [place] Level 0.9 mmol/L (0.6-1.2) [place] Last Dose Date 08/11/19 [place] Last Dose Time 0800 Glucose (Fingerstick) 92 mg/dL (70-99) Current Medications: Meds: Current Medications Medications (Trade) Dose Ordered Sig/Sanna Route PRN Reason Start Time Stop Time Status Last Admin Dose Admin Benztropine Mesylate (Cogentin) 1 mg BID PO 08/12/19 21:00 08/12/19 20:46 I have reviewed the current psychotropics carefully including drug interactions. Risk benefit ratio favors no change other than as noted in my dictated progress note. Diagnosis: Problems: (1) Schizoaffective disorder, bipolar type (2) Bipolar disorder with psychotic features (3) Anxiety disorder (4) Schizoaffective disorder, chronic condition with acute exacerbation (5) Impulse control disorder KUNAL BEST MD Aug 12, 2019 22:46
[2019-08-13] MEDS: LEVOTHYROXINE 100 MCG TABLET PO SCH (06:12)
[2019-08-13 06:32] VITALS: BP 106/70
[2019-08-13] MEDS: buPROPion XL 300 MG TAB.ER.24H. PO SCH (08:35)
[2019-08-13] MEDS: DOCUSATE SODIUM 100 MG CAPSULE PO SCH ×2 (08:35→20:51)
[2019-08-13] MEDS: BENZTROPINE MESYLATE 1 MG TABLET PO SCH ×2 (08:35→20:50)
[2019-08-13] MEDS: glipiZIDE ER 2.5 MG TAB.ER.24 PO SCH (08:35)
[2019-08-13] MEDS: PANTOPRAZOLE 40 MG TABLET. PO SCH (08:35)
[2019-08-13] MEDS: LITHIUM CARBONATE 300 MG TABLET PO SCH ×2 (08:36→20:50)
[2019-08-13] MEDS: METOPROLOL SUCC 24HR ER 25 MG TAB.ER.24H. PO SCH (09:32)
--- NOTE | 2019-08-13 10:03 | PDOC ---
Exam Note: Vincent Note: This note is a late entry for 08/12/2019 covers elements not covered in my initial note. Subjective: The patient was seen individually in the morning of 08/12/2019 with treatment team meeting with Angella (social service staff), [facility] staff, and Viv BAIRES. I met with the patient in the evening with Viv BAIRES. Her appetite is 75%. Average sleep is 2.5 hours. She slept 5-1/2 hours previous night. He has been irritable with nursing staff. Absolute neutrophil count is 3300. [place] level 0.4. He had some choking. Speech of evaluation is completed but we since stopped the Haldol and we are reducing the Cogentin from 2 mg b.i.d. down to 1 mg b.i.d. Review of Systems: Positive for tiredness. No CV, , pulmonary, eye system symptoms on review. Mental Status Exam: Reasonably oriented. Speech moderate latency. Often response is monosyllabic. Abstraction fair. Computation impaired. Language function intact. Mood and affect withdrawn. Laboratory Data: Reviewed. Impression: Schizoaffective disorder, bipolar type mixed with psychotic features. Anxiety disorder unspecified. Impulse control disorder unspecified. Plan: Repeat the fact that we will check a weekly absolute neutrophil count and reduce the Cogentin. Haldol was stopped. Clozaril was increased a day back and we will increase it again after we repeat absolute neutrophil count on Monday. Assessment: Vital Signs/I&O: Vital Signs Date Time Temp Pulse Resp B/P (MAP) Pulse Ox O2 Delivery O2 Flow Rate FiO2 08/13/19 09:32 87 106/70 08/13/19 06:32 98.7 20 97 08/10/19 16:27 Room Air I & O 08/12/19 08/12/19 08/13/19 15:00 23:00 07:00 Intake Total 960 ml 240 ml Balance 960 ml 240 ml Labs: Laboratory Tests Test 08/13/19 07:12 Glucose (Fingerstick) 101 mg/dL (70-99) H Current Medications: Meds: Current Medications Medications (Trade) Dose Ordered Sig/Sanna Route PRN Reason Start Time Stop Time Status Last Admin Dose Admin Benztropine Mesylate (Cogentin) 1 mg BID PO 08/12/19 21:00 08/13/19 08:35 I have reviewed the current psychotropics carefully including drug interactions. Risk benefit ratio favors no change other than as noted in my dictated progress note. Diagnosis: Problems: (1) Schizoaffective disorder, bipolar type (2) Bipolar disorder with psychotic features (3) Anxiety disorder (4) Schizoaffective disorder, chronic condition with acute exacerbation (5) Impulse control disorder KUNAL BEST MD Aug 13, 2019 10:03
[2019-08-13 16:05] VITALS: BP 94/65
[2019-08-13] MEDS: cloZAPine 100 MG TABLET PO SCH (20:49)
[2019-08-13] MEDS: traZODone 100 MG TABLET. PO SCH (20:50)
[2019-08-13] MEDS: SIMVASTATIN 20 MG TABLET PO SCH (20:50)
[2019-08-13] MEDS: DONEPEZIL HCL 10 MG TABLET PO SCH (20:50)
[2019-08-13] MEDS: cloZAPine 25 MG TABLET PO SCH (20:51)
--- NOTE | 2019-08-13 22:33 | PDOC ---
Exam Note: Vincent Note: Please also refer to the separate dictated note~for this date of service dictated separately.~Patient seen individually. Discussed the patient with Nursing staff reviewed the chart.~Reviewed interim history and current functioning. Reviewed vital signs,~Labs/ Radiology~and current medications noted below. Continue current treatment with the changes noted in the dictated addendum note Assessment: Vital Signs/I&O: Vital Signs Date Time Temp Pulse Resp B/P (MAP) Pulse Ox O2 Delivery O2 Flow Rate FiO2 08/13/19 16:05 98.9 94 20 94/65 (75) 99 Room Air I & O 08/12/19 08/12/19 08/13/19 15:00 23:00 07:00 Intake Total 960 ml 240 ml Balance 960 ml 240 ml Labs: Laboratory Tests Test 08/13/19 07:12 Glucose (Fingerstick) 101 mg/dL (70-99) H Current Medications: Meds: Current Medications Medications (Trade) Dose Ordered Sig/Sanna Route PRN Reason Start Time Stop Time Status Last Admin Dose Admin Clozapine (Clozaril) 75 mg QHS PO 08/13/19 21:00 08/13/19 20:51 I have reviewed the current psychotropics carefully including drug interactions. Risk benefit ratio favors no change other than as noted in my dictated progress note. Diagnosis: Problems: (1) Bipolar disorder with psychotic features (2) Schizoaffective disorder, bipolar type (3) Anxiety disorder (4) Schizoaffective disorder, chronic condition with acute exacerbation (5) Impulse control disorder KUNAL BEST MD Aug 13, 2019 22:33
[2019-08-14 05:37] VITALS: BP 122/81
[2019-08-14] MEDS: LEVOTHYROXINE 100 MCG TABLET PO SCH (06:00)
[2019-08-14] MEDS: glipiZIDE ER 2.5 MG TAB.ER.24 PO SCH (08:19)
[2019-08-14] MEDS: DOCUSATE SODIUM 100 MG CAPSULE PO SCH ×2 (08:20→21:42)
[2019-08-14] MEDS: LITHIUM CARBONATE 300 MG TABLET PO SCH ×2 (08:20→21:43)
[2019-08-14] MEDS: METOPROLOL SUCC 24HR ER 25 MG TAB.ER.24H. PO SCH (08:20)
[2019-08-14] MEDS: buPROPion XL 300 MG TAB.ER.24H. PO SCH (08:20)
[2019-08-14] MEDS: BENZTROPINE MESYLATE 1 MG TABLET PO SCH (08:20)
[2019-08-14] MEDS: PANTOPRAZOLE 40 MG TABLET. PO SCH (08:20)
[2019-08-14 16:05] VITALS: BP 89/57
[2019-08-14] MEDS ORDERED: BENZTROPINE MESYLATE 1 MG TABLET PO SCH (21:00)
[2019-08-14] MEDS: SIMVASTATIN 20 MG TABLET PO SCH (21:00)
[2019-08-14] MEDS: DONEPEZIL HCL 10 MG TABLET PO SCH (21:42)
[2019-08-14] MEDS: traZODone 100 MG TABLET. PO SCH (21:43)
[2019-08-14] MEDS: cloZAPine 25 MG TABLET PO SCH (21:43)
[2019-08-14] MEDS: cloZAPine 100 MG TABLET PO SCH (21:43)
--- NOTE | 2019-08-14 22:33 | PDOC ---
Exam Note: Vincent Note: Please also refer to the separate dictated note~for this date of service dictated separately.~Patient seen individually. Discussed the patient with Nursing staff reviewed the chart.~Reviewed interim history and current functioning. Reviewed vital signs,~Labs/ Radiology~and current medications noted below. Continue current treatment with the changes noted in the dictated addendum note Assessment: Vital Signs/I&O: Vital Signs Date Time Temp Pulse Resp B/P (MAP) Pulse Ox O2 Delivery O2 Flow Rate FiO2 08/14/19 16:05 99.2 95 18 89/57 (68) 97 08/13/19 16:05 Room Air I & O 08/13/19 08/13/19 08/14/19 15:00 23:00 07:00 Intake Total 1140 ml 600 ml Balance 1140 ml 600 ml Labs: Laboratory Tests Test 08/14/19 07:33 Glucose (Fingerstick) 105 mg/dL (70-99) H Current Medications: Meds: Current Medications Medications (Trade) Dose Ordered Sig/Sanna Route PRN Reason Start Time Stop Time Status Last Admin Dose Admin Benztropine Mesylate (Cogentin) 1 mg HS PO 08/14/19 21:00 08/14/19 21:43 I have reviewed the current psychotropics carefully including drug interactions. Risk benefit ratio favors no change other than as noted in my dictated progress note. Diagnosis: Problems: (1) Bipolar disorder with psychotic features (2) Schizoaffective disorder, bipolar type (3) Anxiety disorder (4) Schizoaffective disorder, chronic condition with acute exacerbation (5) Impulse control disorder KUNAL BEST MD Aug 14, 2019 22:33
[2019-08-15] MEDS: LEVOTHYROXINE 100 MCG TABLET PO SCH (06:08)
[2019-08-15 06:16] LABS: BASO % 0 % (0-3); EOS % 0 % (0-3); HEMATOCRIT 36.1 % (39.0-53.0); HEMOGLOBIN 11.7 g/dL (13.0-17.5); LYMPH % 23 % (24-48); MEAN CORPUSCULAR HEMOGLOBIN 29 pg (25-35); MEAN CORPUSCULAR HGB CONC 32 g/dL (31-37); MEAN CORPUSCULAR VOLUME 90 fL (79-100); MONO # 0.8 x10^3/uL (0.0-1.1); MONO % 9 % (0-9); NEUT # 6.1 x10^3uL (1.8-7.7); NEUT % 68 % (31-73); PLATELET COUNT 209 x10^3/uL (140-400); RED BLOOD COUNT 4.03 x10^6/uL (4.30-5.70); RED CELL DISTRIBUTION WIDTH 15.3 % (11.5-14.5)
[2019-08-15 06:27] LABS: ALBUMIN 2.8 g/dL (3.4-5.0); CALCIUM 9.2 mg/dL (8.5-10.1); CREATININE 1.5 mg/dL (0.7-1.3); GFR 47.6; POTASSIUM 4.2 mmol/L (3.5-5.1); TOTAL BILIRUBIN 0.5 mg/dL (0.2-1.0); TOTAL PROTEIN 5.5 g/dL (6.4-8.2)
[2019-08-15 06:43] VITALS: BP 90/60
[2019-08-15] MEDS: PANTOPRAZOLE 40 MG TABLET. PO SCH (08:27)
[2019-08-15] MEDS: DOCUSATE SODIUM 100 MG CAPSULE PO SCH ×2 (08:27→20:05)
[2019-08-15] MEDS: buPROPion XL 300 MG TAB.ER.24H. PO SCH (08:27)
[2019-08-15] MEDS: glipiZIDE ER 2.5 MG TAB.ER.24 PO SCH (08:28)
[2019-08-15] MEDS: LITHIUM CARBONATE 300 MG TABLET PO SCH ×2 (08:28→20:05)
[2019-08-15] MEDS: METOPROLOL SUCC 24HR ER 25 MG TAB.ER.24H. PO SCH (08:29)
--- NOTE | 2019-08-15 09:22 | PDOC ---
Exam Note: Vincent Note: This note is a late entry for 08/13/2019 covers elements not covered in my initial note. Subjective: The patient was seen individually in the evening of 08/13/2019. Per Loerna BAIRES, she slept 6-1/2 hours previous night. I met with him at some length in his room. He has been fixated and obsessed about wanting barbiturates. He frequently questions me whether he is crazy. Review of Systems: Ambulation impaired. No CV, , pulmonary, eye system symptoms on review. Mental Status Exam: Oriented to himself and situation. Speech has some latency, coherent. Abstraction fair. Computation impaired. Language function intact. Attention span short. Mood and affect withdrawn. He was lying in bed as I met with him. Laboratory Data: Reviewed. Impression: Schizoaffective disorder, bipolar type mixed with psychotic features. Anxiety disorder unspecified. Impulse control disorder unspecified. Plan: Increase Clozaril from 550 mg h.s. to 575 mg h.s. Maintain Aricept, Wellbutrin, Cogentin, lithium carbonate and lithium level is therapeutic. Maintain Provera, trazodone. Schedule Haldol has been stopped. Continue p.r.n. Haldol. Assessment: Vital Signs/I&O: Vital Signs Date Time Temp Pulse Resp B/P (MAP) Pulse Ox O2 Delivery O2 Flow Rate FiO2 08/15/19 08:29 91 90/60 08/15/19 06:43 98.4 16 97 08/13/19 16:05 Room Air I & O 08/14/19 08/14/19 08/15/19 14:59 22:59 06:59 Intake Total 960 ml 600 ml 1100 ml Balance 960 ml 600 ml 1100 ml Labs: Laboratory Tests Test 08/15/19 06:05 08/15/19 07:48 White Blood Count 9.0 x10^3/uL (4.0-11.0) Red Blood Count 4.03 x10^6/uL (4.30-5.70) L Hemoglobin 11.7 g/dL (13.0-17.5) L Hematocrit 36.1 % (39.0-53.0) L Mean Corpuscular Volume 90 fL (79-100) Mean Corpuscular Hemoglobin 29 pg (25-35) Mean Corpuscular Hemoglobin Concent 32 g/dL (31-37) Red Cell Distribution Width 15.3 % (11.5-14.5) H Platelet Count 209 x10^3/uL (140-400) Neutrophils (%) (Auto) 68 % (31-73) Lymphocytes (%) (Auto) 23 % (24-48) L Monocytes (%) (Auto) 9 % (0-9) Eosinophils (%) (Auto) 0 % (0-3) Basophils (%) (Auto) 0 % (0-3) Neutrophils # (Auto) 6.1 x10^3uL (1.8-7.7) Lymphocytes # (Auto) 2.0 x10^3/uL (1.0-4.8) Monocytes # (Auto) 0.8 x10^3/uL (0.0-1.1) Eosinophils # (Auto) 0.0 x10^3/uL (0.0-0.7) Basophils # (Auto) 0.0 x10^3/uL (0.0-0.2) Sodium Level 145 mmol/L (136-145) Potassium Level 4.2 mmol/L (3.5-5.1) Chloride Level 110 mmol/L (98-107) H Carbon Dioxide Level 32 mmol/L (21-32) Anion Gap 3 (6-14) L Blood Urea Nitrogen 16 mg/dL (8-26) Creatinine 1.5 mg/dL (0.7-1.3) H Estimated GFR (Cockcroft-Gault) 47.6 BUN/Creatinine Ratio 11 (6-20) Glucose Level 112 mg/dL (70-99) H Calcium Level 9.2 mg/dL (8.5-10.1) Total Bilirubin 0.5 mg/dL (0.2-1.0) Aspartate Amino Transferase (AST) 14 U/L (15-37) L Alanine Aminotransferase (ALT) 36 U/L (16-63) Alkaline Phosphatase 69 U/L (46-116) Total Protein 5.5 g/dL (6.4-8.2) L Albumin 2.8 g/dL (3.4-5.0) L Albumin/Globulin Ratio 1.0 (1.0-1.7) Glucose (Fingerstick) 107 mg/dL (70-99) H Current Medications: Meds: Current Medications Medications (Trade) Dose Ordered Sig/Sanna Route PRN Reason Start Time Stop Time Status Last Admin Dose Admin Benztropine Mesylate (Cogentin) 1 mg HS PO 08/14/19 21:00 08/14/19 21:43 I have reviewed the current psychotropics carefully including drug interactions. Risk benefit ratio favors no change other than as noted in my dictated progress note. Diagnosis: Problems: (1) Schizoaffective disorder, chronic condition with acute exacerbation (2) Impulse control disorder (3) Anxiety disorder (4) Bipolar disorder with psychotic features (5) Schizoaffective disorder, bipolar type KUNAL BEST MD Aug 15, 2019 09:22
[2019-08-15 15:56] VITALS: BP 102/67
[2019-08-15] MEDS: cloZAPine 25 MG TABLET PO SCH (20:04)
[2019-08-15] MEDS: cloZAPine 100 MG TABLET PO SCH (20:05)
[2019-08-15] MEDS: traZODone 100 MG TABLET. PO SCH (20:05)
[2019-08-15] MEDS: DONEPEZIL HCL 10 MG TABLET PO SCH (20:05)
[2019-08-15] MEDS: SIMVASTATIN 20 MG TABLET PO SCH (20:05)
[2019-08-15] MEDS: BENZTROPINE MESYLATE 1 MG TABLET PO SCH (20:06)
--- NOTE | 2019-08-15 22:21 | PDOC ---
Exam Note: Vincent Note: Please also refer to the separate dictated note~for this date of service dictated separately.~Patient seen individually. Discussed the patient with Nursing staff reviewed the chart.~Reviewed interim history and current functioning. Reviewed vital signs,~Labs/ Radiology~and current medications noted below. Continue current treatment with the changes noted in the dictated addendum note Assessment: Vital Signs/I&O: Vital Signs Date Time Temp Pulse Resp B/P (MAP) Pulse Ox O2 Delivery O2 Flow Rate FiO2 08/15/19 15:56 99.0 104 22 102/67 (79) 99 Room Air I & O 08/14/19 08/14/19 08/15/19 15:00 23:00 07:00 Intake Total 960 ml 600 ml 1100 ml Balance 960 ml 600 ml 1100 ml Labs: Laboratory Tests Test 08/15/19 06:05 08/15/19 07:48 White Blood Count 9.0 x10^3/uL (4.0-11.0) Red Blood Count 4.03 x10^6/uL (4.30-5.70) L Hemoglobin 11.7 g/dL (13.0-17.5) L Hematocrit 36.1 % (39.0-53.0) L Mean Corpuscular Volume 90 fL (79-100) Mean Corpuscular Hemoglobin 29 pg (25-35) Mean Corpuscular Hemoglobin Concent 32 g/dL (31-37) Red Cell Distribution Width 15.3 % (11.5-14.5) H Platelet Count 209 x10^3/uL (140-400) Neutrophils (%) (Auto) 68 % (31-73) Lymphocytes (%) (Auto) 23 % (24-48) L Monocytes (%) (Auto) 9 % (0-9) Eosinophils (%) (Auto) 0 % (0-3) Basophils (%) (Auto) 0 % (0-3) Neutrophils # (Auto) 6.1 x10^3uL (1.8-7.7) Lymphocytes # (Auto) 2.0 x10^3/uL (1.0-4.8) Monocytes # (Auto) 0.8 x10^3/uL (0.0-1.1) Eosinophils # (Auto) 0.0 x10^3/uL (0.0-0.7) Basophils # (Auto) 0.0 x10^3/uL (0.0-0.2) Sodium Level 145 mmol/L (136-145) Potassium Level 4.2 mmol/L (3.5-5.1) Chloride Level 110 mmol/L (98-107) H Carbon Dioxide Level 32 mmol/L (21-32) Anion Gap 3 (6-14) L Blood Urea Nitrogen 16 mg/dL (8-26) Creatinine 1.5 mg/dL (0.7-1.3) H Estimated GFR (Cockcroft-Gault) 47.6 BUN/Creatinine Ratio 11 (6-20) Glucose Level 112 mg/dL (70-99) H Calcium Level 9.2 mg/dL (8.5-10.1) Total Bilirubin 0.5 mg/dL (0.2-1.0) Aspartate Amino Transferase (AST) 14 U/L (15-37) L Alanine Aminotransferase (ALT) 36 U/L (16-63) Alkaline Phosphatase 69 U/L (46-116) Total Protein 5.5 g/dL (6.4-8.2) L Albumin 2.8 g/dL (3.4-5.0) L Albumin/Globulin Ratio 1.0 (1.0-1.7) [place] Level 0.9 mmol/L (0.6-1.2) [place] Last Dose Date 08/14/19 [place] Last Dose Time 2100 Glucose (Fingerstick) 107 mg/dL (70-99) H Current Medications: Meds: Current Medications Medications (Trade) Dose Ordered Sig/Sanna Route PRN Reason Start Time Stop Time Status Last Admin Dose Admin Benztropine Mesylate (Cogentin) 1 mg BID PO 08/15/19 21:00 08/15/19 20:06 I have reviewed the current psychotropics carefully including drug interactions. Risk benefit ratio favors no change other than as noted in my dictated progress note. Diagnosis: Problems: (1) Impulse control disorder (2) Schizoaffective disorder, chronic condition with acute exacerbation (3) Anxiety disorder (4) Bipolar disorder with psychotic features (5) Schizoaffective disorder, bipolar type KUNAL BEST MD Aug 15, 2019 22:21
[2019-08-16] MEDS: LEVOTHYROXINE 100 MCG TABLET PO SCH (05:35)
[2019-08-16 06:18] VITALS: BP 101/66
[2019-08-16] MEDS: buPROPion XL 300 MG TAB.ER.24H. PO SCH (08:06)
[2019-08-16] MEDS: BENZTROPINE MESYLATE 1 MG TABLET PO SCH ×2 (08:06→19:28)
[2019-08-16] MEDS: PANTOPRAZOLE 40 MG TABLET. PO SCH (08:07)
[2019-08-16] MEDS: DOCUSATE SODIUM 100 MG CAPSULE PO SCH ×2 (08:07→19:28)
[2019-08-16] MEDS: LITHIUM CARBONATE 300 MG TABLET PO SCH ×2 (08:07→19:28)
[2019-08-16] MEDS: glipiZIDE ER 2.5 MG TAB.ER.24 PO SCH (08:07)
[2019-08-16] MEDS: METOPROLOL SUCC 24HR ER 25 MG TAB.ER.24H. PO SCH (08:07)
[2019-08-16 15:40] VITALS: BP 104/71
[2019-08-16] MEDS: SIMVASTATIN 20 MG TABLET PO SCH (19:28)
[2019-08-16] MEDS: cloZAPine 100 MG TABLET PO SCH (19:28)
[2019-08-16] MEDS: DONEPEZIL HCL 10 MG TABLET PO SCH (19:28)
[2019-08-16] MEDS: cloZAPine 25 MG TABLET PO SCH (19:28)
[2019-08-16] MEDS: traZODone 100 MG TABLET. PO SCH (19:28)
--- NOTE | 2019-08-16 22:31 | PDOC ---
Exam Note: Vincent Note: Please also refer to the separate dictated note~for this date of service dictated separately.~Patient seen individually. Discussed the patient with Nursing staff reviewed the chart.~Reviewed interim history and current functioning. Reviewed vital signs,~Labs/ Radiology~and current medications noted below. Continue current treatment with the changes noted in the dictated addendum note Assessment: Vital Signs/I&O: Vital Signs Date Time Temp Pulse Resp B/P (MAP) Pulse Ox O2 Delivery O2 Flow Rate FiO2 08/16/19 15:40 98.2 111 20 104/71 (82) 100 08/16/19 06:18 Room Air I & O 08/15/19 08/15/19 08/16/19 15:00 23:00 07:00 Intake Total 960 ml 600 ml 1140 ml Balance 960 ml 600 ml 1140 ml Labs: Laboratory Tests Test 08/16/19 07:42 Glucose (Fingerstick) 96 mg/dL (70-99) Current Medications: I have reviewed the current psychotropics carefully including drug interactions. Risk benefit ratio favors no change other than as noted in my dictated progress note. Diagnosis: Problems: (1) Impulse control disorder (2) Schizoaffective disorder, chronic condition with acute exacerbation (3) Anxiety disorder (4) Bipolar disorder with psychotic features (5) Schizoaffective disorder, bipolar type KUNAL BEST MD Aug 16, 2019 22:31
[2019-08-17] MEDS: LEVOTHYROXINE 100 MCG TABLET PO SCH (05:59)
[2019-08-17 06:55] VITALS: BP 120/80
--- NOTE | 2019-08-17 07:23 | PDOC ---
Exam Note: Vincent Note: This note is a late entry for 08/14/2019 covers elements not covered in my initial note. Subjective: The patient was seen individually in the evening of 08/14/2019. Per Lorena BAIRES, she slept 7-1/4 hours previous night. He resents the honey thickened liquids, spends much time in his bed. He is threatening staff that he would urinate in his bed if they bothered him. [place] level is 0.9. Review of Systems: Ambulation impaired. No CV, , pulmonary, eye system symptoms on review. Positive for some tiredness. Mental Status Exam: Reasonably oriented. Speech coherent. Often response is monosyllabic. Abstraction fair. Computation impaired. Language function intact. Attention span short. Mood and affect withdrawn. No suicidal or homicidal ideation. Laboratory Data: Reviewed. Impression: Schizoaffective disorder, bipolar type. Anxiety disorder unspecified. Impulse control disorder unspecified. Plan: The patient is on Cogentin 1 mg b.i.d. No EPS is noted. Haldol has been stopped which could have been contributing to the EPS. We will reduce the Cogentin to 1 mg a day. Maintain Wellbutrin 300 mg a day, Clozaril 575 mg h.s., Aricept 10 mg a day, lithium carbonate 300 mg b.i.d., Provera 5 mg b.i.d., trazodone 100 mg h.s., Haldol p.r.n. Adjust further as clinically indicated. Assessment: Vital Signs/I&O: Vital Signs Date Time Temp Pulse Resp B/P (MAP) Pulse Ox O2 Delivery O2 Flow Rate FiO2 08/17/19 06:55 97.8 113 18 120/80 (93) 99 08/16/19 06:18 Room Air I & O 08/16/19 08/16/19 08/17/19 15:00 23:00 07:00 Intake Total 880 ml 960 ml Balance 880 ml 960 ml Labs: Laboratory Tests Test 08/16/19 07:42 Glucose (Fingerstick) 96 mg/dL (70-99) Current Medications: I have reviewed the current psychotropics carefully including drug interactions. Risk benefit ratio favors no change other than as noted in my dictated progress note. Diagnosis: Problems: (1) Schizoaffective disorder, chronic condition with acute exacerbation (2) Anxiety disorder (3) Bipolar disorder with psychotic features (4) Schizoaffective disorder, bipolar type (5) Impulse control disorder KUNAL BEST MD Aug 17, 2019 07:23
--- NOTE | 2019-08-17 07:51 | PDOC ---
Exam Note: Vincent Note: This note is a late entry for 08/15/2019 covers elements not covered in my initial note. Subjective: The patient was seen individually in the evening of 08/15/2019. Per Lorena BAIRES, he has had increased tremors since Cogentin was reduced. We will increase it back to 1 mg twice a day. [place] level 0.9. He has not urinated in his bed. Review of Systems: Ambulation impaired. No CV, , pulmonary, eye system symptoms on review. Mental Status Exam: Reasonably oriented. Speech coherent. Often response is monosyllabic. Abstraction fair. Computation impaired. Language function intact. Attention span short. Mood and affect withdrawn. No suicidal or homicidal ideation. Laboratory Data: Reviewed. Impression: Schizoaffective disorder, bipolar type. Anxiety disorder unspecified. Impulse control disorder unspecified. Plan: No change from initial note other than increasing the Cogentin back to 1 mg b.i.d. Adjust further as clinically indicated. Assessment: Vital Signs/I&O: Vital Signs Date Time Temp Pulse Resp B/P (MAP) Pulse Ox O2 Delivery O2 Flow Rate FiO2 08/17/19 06:55 97.8 113 18 120/80 (93) 99 08/16/19 06:18 Room Air I & O 08/16/19 08/16/19 08/17/19 14:59 22:59 06:59 Intake Total 880 ml 960 ml Balance 880 ml 960 ml Current Medications: I have reviewed the current psychotropics carefully including drug interactions. Risk benefit ratio favors no change other than as noted in my dictated progress note. Diagnosis: Problems: (1) Schizoaffective disorder, bipolar type (2) Bipolar disorder with psychotic features (3) Anxiety disorder (4) Schizoaffective disorder, chronic condition with acute exacerbation (5) Impulse control disorder KUNAL BEST MD Aug 17, 2019 07:51
[2019-08-17] MEDS: DOCUSATE SODIUM 100 MG CAPSULE PO SCH ×2 (08:01→21:26)
[2019-08-17] MEDS: buPROPion XL 300 MG TAB.ER.24H. PO SCH (08:01)
[2019-08-17] MEDS: BENZTROPINE MESYLATE 1 MG TABLET PO SCH ×2 (08:01→21:25)
[2019-08-17] MEDS: PANTOPRAZOLE 40 MG TABLET. PO SCH (08:01)
[2019-08-17] MEDS: LITHIUM CARBONATE 300 MG TABLET PO SCH ×2 (08:01→21:26)
[2019-08-17] MEDS: glipiZIDE ER 2.5 MG TAB.ER.24 PO SCH (08:01)
[2019-08-17] MEDS: METOPROLOL SUCC 24HR ER 25 MG TAB.ER.24H. PO SCH (08:03)
[2019-08-17] MEDS: CHOLECALCIFEROL (VITAMIN D3) 50,000 UNIT CAPSULE PO SCH (13:07)
[2019-08-17 16:09] VITALS: BP 155/60
[2019-08-17] MEDS: traZODone 100 MG TABLET. PO SCH (21:25)
[2019-08-17] MEDS: DONEPEZIL HCL 10 MG TABLET PO SCH (21:26)
[2019-08-17] MEDS: cloZAPine 25 MG TABLET PO SCH (21:26)
[2019-08-17] MEDS: SIMVASTATIN 20 MG TABLET PO SCH (21:26)
[2019-08-17] MEDS: cloZAPine 100 MG TABLET PO SCH (21:26)
--- NOTE | 2019-08-17 22:20 | PDOC ---
Exam Note: Vincent Note: Please also refer to the separate dictated note~for this date of service dictated separately.~Patient seen individually. Discussed the patient with Nursing staff reviewed the chart.~Reviewed interim history and current functioning. Reviewed vital signs,~Labs/ Radiology~and current medications noted below. Continue current treatment with the changes noted in the dictated addendum note Assessment: Vital Signs/I&O: Vital Signs Date Time Temp Pulse Resp B/P (MAP) Pulse Ox O2 Delivery O2 Flow Rate FiO2 08/17/19 16:09 98.3 115 24 155/60 (91) 99 08/16/19 06:18 Room Air I & O 08/16/19 08/16/19 08/17/19 15:00 23:00 07:00 Intake Total 880 ml 960 ml Balance 880 ml 960 ml Labs: Laboratory Tests Test 08/17/19 08:16 Glucose (Fingerstick) 240 mg/dL (70-99) H Current Medications: I have reviewed the current psychotropics carefully including drug interactions. Risk benefit ratio favors no change other than as noted in my dictated progress note. Diagnosis: Problems: (1) Impulse control disorder (2) Schizoaffective disorder, chronic condition with acute exacerbation (3) Anxiety disorder (4) Bipolar disorder with psychotic features (5) Schizoaffective disorder, bipolar type KUNAL BEST MD Aug 17, 2019 22:20
[2019-08-18] MEDS: LEVOTHYROXINE 100 MCG TABLET PO SCH (06:00)
[2019-08-18 06:44] VITALS: BP 95/60
--- NOTE | 2019-08-18 07:26 | PDOC ---
Exam Note: [place] Note: This note is a late entry for 08/16/2019 covers elements not covered in my initial note. Subjective: The patient was seen individually in the evening of 08/16/2019. Per Renae BAIRES, the patient is obsessed wanting his medications in liquid and wanting regular water rather than thickened and I addressed this with him. [place] level 0.9, therapeutic. Appetite is fair. He slept 6 hours previous night, isolates in his room. Review of Systems: Ambulation impaired. No CV, , pulmonary, eye system symptoms on review. Mental Status Exam: Reasonably oriented. Speech coherent. Often response is monosyllabic. Abstraction fair. Computation impaired. Language function intact. Attention span short. Mood and affect withdrawn. No suicidal or homicidal ideation. Laboratory Data: Reviewed. Impression: Schizoaffective disorder, bipolar type. Anxiety disorder unspecified. Impulse control disorder unspecified. Plan: No change from initial note. Assessment: Vital Signs/I&O: Vital Signs Date Time Temp Pulse Resp B/P (MAP) Pulse Ox O2 Delivery O2 Flow Rate FiO2 08/18/19 06:44 97.4 93 16 95/60 (72) 99 08/16/19 06:18 Room Air I & O 08/17/19 08/17/19 08/18/19 15:00 23:00 07:00 Intake Total 960 ml 480 ml 240 ml Balance 960 ml 480 ml 240 ml Labs: Laboratory Tests Test 08/17/19 08:16 Glucose (Fingerstick) 240 mg/dL (70-99) H Current Medications: I have reviewed the current psychotropics carefully including drug interactions. Risk benefit ratio favors no change other than as noted in my dictated progress note. Diagnosis: Problems: (1) Impulse control disorder (2) Schizoaffective disorder, chronic condition with acute exacerbation (3) Anxiety disorder (4) Bipolar disorder with psychotic features (5) Schizoaffective disorder, bipolar type KUNAL BEST MD Aug 18, 2019 07:26
--- NOTE | 2019-08-18 07:47 | PDOC ---
Exam Note: Vincent Note: This note is a late entry for 08/17/2019 covers elements not covered in my initial note. Subjective: The patient was seen individually in the evening of 08/17/2019. Per Renae BAIRES, he slept 7-3/4 hours previous night. He has been quite obsessive about fluids, putting himself on the floor, no injuries noted. Nursing staff are encouraging him to come to the dayroom. He resents this. Nursing staff report he states not a happy camper and he is encouraged to come out of the room. I met with him in his room. Review of Systems: Ambulation impaired. No CV, , pulmonary, eye system symptoms on review. He is obsessed about thickened liquids. I processed this with him. Mental Status Exam: Reasonably oriented. Speech coherent. Often response is monosyllabic. Abstraction fair. Computation impaired. Language function intact. Attention span short. Mood and affect withdrawn. No suicidal or homicidal ideation. Laboratory Data: Reviewed. Impression: Schizoaffective disorder, bipolar type. Anxiety disorder unspecified. Impulse control disorder unspecified. Plan: No change from initial note. We will adjust psychotropics further as clinically indicated. Clozaril has been increased. [place] is therapeutic. He remains on Cogentin, Wellbutrin, Provera and trazodone h.s. for insomnia. Assessment: Vital Signs/I&O: Vital Signs Date Time Temp Pulse Resp B/P (MAP) Pulse Ox O2 Delivery O2 Flow Rate FiO2 08/18/19 06:44 97.4 93 16 95/60 (72) 99 08/16/19 06:18 Room Air I & O 08/17/19 08/17/19 08/18/19 15:00 23:00 07:00 Intake Total 960 ml 480 ml 240 ml Balance 960 ml 480 ml 240 ml Labs: Laboratory Tests Test 08/17/19 08:16 Glucose (Fingerstick) 240 mg/dL (70-99) H Current Medications: I have reviewed the current psychotropics carefully including drug interactions. Risk benefit ratio favors no change other than as noted in my dictated progress note. Diagnosis: Problems: (1) Impulse control disorder (2) Schizoaffective disorder, chronic condition with acute exacerbation (3) Anxiety disorder (4) Bipolar disorder with psychotic features (5) Schizoaffective disorder, bipolar type KUNAL BEST MD Aug 18, 2019 07:47
[2019-08-18] MEDS: LITHIUM CARBONATE 300 MG TABLET PO SCH ×2 (08:03→20:01)
[2019-08-18] MEDS: DOCUSATE SODIUM 100 MG CAPSULE PO SCH ×2 (08:03→20:00)
[2019-08-18] MEDS: BENZTROPINE MESYLATE 1 MG TABLET PO SCH ×2 (08:03→20:01)
[2019-08-18] MEDS: PANTOPRAZOLE 40 MG TABLET. PO SCH (08:03)
[2019-08-18] MEDS: glipiZIDE ER 2.5 MG TAB.ER.24 PO SCH (08:03)
[2019-08-18] MEDS: buPROPion XL 300 MG TAB.ER.24H. PO SCH (08:03)
[2019-08-18] MEDS: METOPROLOL SUCC 24HR ER 25 MG TAB.ER.24H. PO SCH (08:04)
[2019-08-18 16:37] VITALS: BP 116/73
[2019-08-18] MEDS: cloZAPine 100 MG TABLET PO SCH (20:00)
[2019-08-18] MEDS: DONEPEZIL HCL 10 MG TABLET PO SCH (20:00)
[2019-08-18] MEDS: cloZAPine 25 MG TABLET PO SCH (20:00)
[2019-08-18] MEDS: traZODone 100 MG TABLET. PO SCH (20:01)
[2019-08-18] MEDS: SIMVASTATIN 20 MG TABLET PO SCH (20:01)
--- NOTE | 2019-08-18 22:25 | PDOC ---
Exam Note: Vincent Note: Please also refer to the separate dictated note~for this date of service dictated separately.~Patient seen individually. Discussed the patient with Nursing staff reviewed the chart.~Reviewed interim history and current functioning. Reviewed vital signs,~Labs/ Radiology~and current medications noted below. Continue current treatment with the changes noted in the dictated addendum note Assessment: Vital Signs/I&O: Vital Signs Date Time Temp Pulse Resp B/P (MAP) Pulse Ox O2 Delivery O2 Flow Rate FiO2 08/18/19 16:37 98.8 92 18 116/73 (87) 99 08/16/19 06:18 Room Air I & O 08/17/19 08/17/19 08/18/19 15:00 23:00 07:00 Intake Total 960 ml 480 ml 240 ml Balance 960 ml 480 ml 240 ml Labs: Laboratory Tests Test 08/18/19 08:00 Glucose (Fingerstick) 85 mg/dL (70-99) Current Medications: I have reviewed the current psychotropics carefully including drug interactions. Risk benefit ratio favors no change other than as noted in my dictated progress note. Diagnosis: Problems: (1) Schizoaffective disorder, bipolar type (2) Bipolar disorder with psychotic features (3) Anxiety disorder (4) Schizoaffective disorder, chronic condition with acute exacerbation (5) Impulse control disorder KUNAL BEST MD Aug 18, 2019 22:25
[2019-08-19 05:06] VITALS: BP 114/75
[2019-08-19] MEDS: LEVOTHYROXINE 100 MCG TABLET PO SCH (05:41)
[2019-08-19 06:43] LABS: BASO % 0 % (0-3); EOS % 0 % (0-3); HEMATOCRIT 36.4 % (39.0-53.0); HEMOGLOBIN 11.9 g/dL (13.0-17.5); LYMPH # 1.4 x10^3/uL (1.0-4.8); LYMPH % 23 % (24-48); MEAN CORPUSCULAR HEMOGLOBIN 30 pg (25-35); MEAN CORPUSCULAR HGB CONC 33 g/dL (31-37); MEAN CORPUSCULAR VOLUME 90 fL (79-100); MONO # 0.6 x10^3/uL (0.0-1.1); MONO % 10 % (0-9); NEUT % 67 % (31-73); PLATELET COUNT 198 x10^3/uL (140-400); RED BLOOD COUNT 4.05 x10^6/uL (4.30-5.70); RED CELL DISTRIBUTION WIDTH 14.9 % (11.5-14.5)
[2019-08-19] MEDS: glipiZIDE ER 2.5 MG TAB.ER.24 PO SCH (08:35)
[2019-08-19] MEDS: LITHIUM CARBONATE 300 MG TABLET PO SCH ×2 (08:35→20:07)
[2019-08-19] MEDS: METOPROLOL SUCC 24HR ER 25 MG TAB.ER.24H. PO SCH (08:35)
[2019-08-19] MEDS: DOCUSATE SODIUM 100 MG CAPSULE PO SCH ×2 (08:35→20:06)
[2019-08-19] MEDS: BENZTROPINE MESYLATE 1 MG TABLET PO SCH ×2 (08:35→20:06)
[2019-08-19] MEDS: buPROPion XL 300 MG TAB.ER.24H. PO SCH (08:35)
[2019-08-19] MEDS: PANTOPRAZOLE 40 MG TABLET. PO SCH (08:35)
--- NOTE | 2019-08-19 10:04 | PDOC ---
Exam Note: Vincent Note: This note is a late entry for 08/18/2019 covers elements not covered in my initial note. Subjective: The patient was seen individually in the evening of 08/18/2019. Per Renae BAIRES, he slept 7-1/2 hours previous night. He has been somewhat obsessed, wanting liquids to drink rather than thickened liquids. He threw himself on the floor, talking to himself, actively hallucinating but denies this as I met with him in his room. Review of Systems: Ambulation impaired. No CV, , pulmonary, eye system symptoms on review. Mental Status Exam: Reasonably oriented. Speech coherent. Often response is monosyllabic. Abstraction fair. Computation impaired. Language function intact. Attention span short. Mood and affect withdrawn. No suicidal or homicidal ideation. Laboratory Data: Reviewed. Impression: Schizoaffective disorder, bipolar type. Anxiety disorder unspecified. Impulse control disorder unspecified. Plan: No change from initial note. We will check CBC, absolute neutrophil count tomorrow on Monday08/19/2019. Increase Clozaril to 600 mg h.s., if the CBC and ANC is unremarkable. Haldol has been stopped. Maintain Cogentin for some extrapyramidal side effects that persist despite the Haldol being stopped. Maintain Wellbutrin, Aricept, lithium, Provera and trazodone p.r.n. Adjust further as clinically indicated. Assessment: Vital Signs/I&O: Vital Signs Date Time Temp Pulse Resp B/P (MAP) Pulse Ox O2 Delivery O2 Flow Rate FiO2 08/19/19 08:35 64 114/75 08/19/19 05:06 98.3 20 96 08/16/19 06:18 Room Air I & O 08/18/19 08/18/19 08/19/19 15:00 23:00 07:00 Intake Total 960 ml 720 ml Balance 960 ml 720 ml Labs: Laboratory Tests Test 08/19/19 06:17 08/19/19 07:32 White Blood Count 6.0 x10^3/uL (4.0-11.0) Red Blood Count 4.05 x10^6/uL (4.30-5.70) L Hemoglobin 11.9 g/dL (13.0-17.5) L Hematocrit 36.4 % (39.0-53.0) L Mean Corpuscular Volume 90 fL (79-100) Mean Corpuscular Hemoglobin 30 pg (25-35) Mean Corpuscular Hemoglobin Concent 33 g/dL (31-37) Red Cell Distribution Width 14.9 % (11.5-14.5) H Platelet Count 198 x10^3/uL (140-400) Neutrophils (%) (Auto) 67 % (31-73) Lymphocytes (%) (Auto) 23 % (24-48) L Monocytes (%) (Auto) 10 % (0-9) H Eosinophils (%) (Auto) 0 % (0-3) Basophils (%) (Auto) 0 % (0-3) Neutrophils # (Auto) 4.0 x10^3uL (1.8-7.7) Lymphocytes # (Auto) 1.4 x10^3/uL (1.0-4.8) Monocytes # (Auto) 0.6 x10^3/uL (0.0-1.1) Eosinophils # (Auto) 0.0 x10^3/uL (0.0-0.7) Basophils # (Auto) 0.0 x10^3/uL (0.0-0.2) Glucose (Fingerstick) 110 mg/dL (70-99) H Current Medications: I have reviewed the current psychotropics carefully including drug interactions. Risk benefit ratio favors no change other than as noted in my dictated progress note. Diagnosis: Problems: (1) Bipolar disorder with psychotic features (2) Schizoaffective disorder, bipolar type (3) Anxiety disorder (4) Schizoaffective disorder, chronic condition with acute exacerbation (5) Impulse control disorder KUNAL BEST MD Aug 19, 2019 10:04
[2019-08-19 16:50] VITALS: BP 101/66
[2019-08-19] MEDS: cloZAPine 100 MG TABLET PO SCH (20:05)
[2019-08-19] MEDS: SIMVASTATIN 20 MG TABLET PO SCH (20:06)
[2019-08-19] MEDS: DONEPEZIL HCL 10 MG TABLET PO SCH (20:06)
[2019-08-19] MEDS: traZODone 100 MG TABLET. PO SCH (20:06)
--- NOTE | 2019-08-19 22:25 | PDOC ---
Exam Note: Vincent Note: Please also refer to the separate dictated note~for this date of service dictated separately.~Patient seen individually. Discussed the patient with Nursing staff reviewed the chart.~Reviewed interim history and current functioning. Reviewed vital signs,~Labs/ Radiology~and current medications noted below. Continue current treatment with the changes noted in the dictated addendum note Assessment: Vital Signs/I&O: Vital Signs Date Time Temp Pulse Resp B/P (MAP) Pulse Ox O2 Delivery O2 Flow Rate FiO2 08/19/19 16:50 98.0 93 22 101/66 (78) 96 08/16/19 06:18 Room Air I & O 08/18/19 08/18/19 08/19/19 15:00 23:00 07:00 Intake Total 960 ml 720 ml Balance 960 ml 720 ml Labs: Laboratory Tests Test 08/19/19 06:17 08/19/19 07:32 White Blood Count 6.0 x10^3/uL (4.0-11.0) Red Blood Count 4.05 x10^6/uL (4.30-5.70) L Hemoglobin 11.9 g/dL (13.0-17.5) L Hematocrit 36.4 % (39.0-53.0) L Mean Corpuscular Volume 90 fL (79-100) Mean Corpuscular Hemoglobin 30 pg (25-35) Mean Corpuscular Hemoglobin Concent 33 g/dL (31-37) Red Cell Distribution Width 14.9 % (11.5-14.5) H Platelet Count 198 x10^3/uL (140-400) Neutrophils (%) (Auto) 67 % (31-73) Lymphocytes (%) (Auto) 23 % (24-48) L Monocytes (%) (Auto) 10 % (0-9) H Eosinophils (%) (Auto) 0 % (0-3) Basophils (%) (Auto) 0 % (0-3) Neutrophils # (Auto) 4.0 x10^3uL (1.8-7.7) Lymphocytes # (Auto) 1.4 x10^3/uL (1.0-4.8) Monocytes # (Auto) 0.6 x10^3/uL (0.0-1.1) Eosinophils # (Auto) 0.0 x10^3/uL (0.0-0.7) Basophils # (Auto) 0.0 x10^3/uL (0.0-0.2) Glucose (Fingerstick) 110 mg/dL (70-99) H Current Medications: Meds: Current Medications Medications (Trade) Dose Ordered Sig/Sanna Route PRN Reason Start Time Stop Time Status Last Admin Dose Admin Clozapine (Clozaril) 600 mg HS PO 08/19/19 21:00 08/19/19 20:05 I have reviewed the current psychotropics carefully including drug interactions. Risk benefit ratio favors no change other than as noted in my dictated progress note. Diagnosis: Problems: (1) Bipolar disorder with psychotic features (2) Schizoaffective disorder, bipolar type (3) Schizoaffective disorder, chronic condition with acute exacerbation (4) Impulse control disorder (5) Anxiety disorder KUNAL BEST MD Aug 19, 2019 22:25
[2019-08-20] MEDS: LEVOTHYROXINE 100 MCG TABLET PO SCH (05:36)
[2019-08-20 05:43] VITALS: BP 106/61
--- NOTE | 2019-08-20 07:34 | PDOC ---
Exam Note: Vincent Note: This note is a late entry for 08/19/2019 covers elements not covered in my initial note. Subjective: The patient was seen individually in the morning of 08/19/2019 with treatment team meeting with Angella Manzanares RN (social service staff), [facility] staff. I met with the patient in the evening. Also discussed with Glenna BAIRES in the evening. Appetite is 100%. He slept 6-1/2 hours previous night. His absolute neutrophil count is 4000. Sodium 145. We have checked with his past history. He was on pureed diet. A video swallow maybe indicated once he has been discharged from here. Speech was consulted again with that recommendation. He is wanting his thickened liquids changed back to regular liquids and we will wait till the video swallow is completed because he had been intubated recently and was septic and swallowing has been compromised. Review of Systems: Ambulation impaired. No CV, , pulmonary, eye system symptoms on review. Mental Status Exam: Reasonably oriented. Speech coherent. Often response is monosyllabic. Abstraction fair. Computation impaired. Language function intact. Attention span short. Mood and affect withdrawn. No suicidal or antonia icidal ideation. He is intermittently psychotic, hallucinating. Laboratory Data: Reviewed. Impression: Schizoaffective disorder, bipolar type. Anxiety disorder unspecified. Impulse control disorder unspecified. Plan: Since the absolute neutrophil count is unremarkable, we will increase the Clozaril from 575 mg to 600 mg h.s.. Continue rest unchanged. Assessment: Vital Signs/I&O: Vital Signs Date Time Temp Pulse Resp B/P (MAP) Pulse Ox O2 Delivery O2 Flow Rate FiO2 08/20/19 05:43 97.8 104 18 106/61 (76) 99 08/16/19 06:18 Room Air I & O 08/19/19 08/19/19 08/20/19 15:00 23:00 07:00 Intake Total 720 ml 480 ml 120 ml Balance 720 ml 480 ml 120 ml Labs: Laboratory Tests Test 08/20/19 07:23 Glucose (Fingerstick) 109 mg/dL (70-99) H Current Medications: Meds: Current Medications Medications (Trade) Dose Ordered Sig/Sanna Route PRN Reason Start Time Stop Time Status Last Admin Dose Admin Clozapine (Clozaril) 600 mg HS PO 08/19/19 21:00 08/19/19 20:05 I have reviewed the current psychotropics carefully including drug interactions. Risk benefit ratio favors no change other than as noted in my dictated progress note. Diagnosis: Problems: (1) Schizoaffective disorder, bipolar type (2) Bipolar disorder with psychotic features (3) Anxiety disorder (4) Schizoaffective disorder, chronic condition with acute exacerbation (5) Impulse control disorder KUNAL BETS MD Aug 20, 2019 07:33
[2019-08-20] MEDS: METOPROLOL SUCC 24HR ER 25 MG TAB.ER.24H. PO SCH (10:28)
[2019-08-20] MEDS: PANTOPRAZOLE 40 MG TABLET. PO SCH (10:29)
[2019-08-20] MEDS: glipiZIDE ER 2.5 MG TAB.ER.24 PO SCH (10:29)
[2019-08-20] MEDS: BENZTROPINE MESYLATE 1 MG TABLET PO SCH ×2 (10:29→20:20)
[2019-08-20] MEDS: buPROPion XL 300 MG TAB.ER.24H. PO SCH (10:29)
[2019-08-20] MEDS: LITHIUM CARBONATE 300 MG TABLET PO SCH ×2 (10:29→20:20)
[2019-08-20] MEDS: DOCUSATE SODIUM 100 MG CAPSULE PO SCH ×2 (10:29→20:20)
[2019-08-20 15:59] VITALS: BP 85/62
[2019-08-20] MEDS: SIMVASTATIN 20 MG TABLET PO SCH (20:19)
[2019-08-20] MEDS: DONEPEZIL HCL 10 MG TABLET PO SCH (20:19)
[2019-08-20] MEDS: traZODone 100 MG TABLET. PO SCH (20:20)
[2019-08-20] MEDS: cloZAPine 100 MG TABLET PO SCH (20:20)
--- NOTE | 2019-08-20 22:16 | PDOC ---
Exam Note: Vincent Note: Please also refer to the separate dictated note~for this date of service dictated separately.~Patient seen individually. Discussed the patient with Nursing staff reviewed the chart.~Reviewed interim history and current functioning. Reviewed vital signs,~Labs/ Radiology~and current medications noted below. Continue current treatment with the changes noted in the dictated addendum note Assessment: Vital Signs/I&O: Vital Signs Date Time Temp Pulse Resp B/P (MAP) Pulse Ox O2 Delivery O2 Flow Rate FiO2 08/20/19 15:59 98.1 93 18 85/62 (70) 98 Room Air I & O 08/19/19 08/19/19 08/20/19 15:00 23:00 07:00 Intake Total 720 ml 480 ml 120 ml Balance 720 ml 480 ml 120 ml Labs: Laboratory Tests Test 08/20/19 07:23 Glucose (Fingerstick) 109 mg/dL (70-99) H Current Medications: Meds: Current Medications Medications (Trade) Dose Ordered Sig/Sanna Route PRN Reason Start Time Stop Time Status Last Admin Dose Admin Olanzapine (ZyPREXA ZYDIS) 2.5 mg PRN Q2HR PRN PO 1ST CHOICE PSYCHOSIS 08/20/19 21:45 08/20/19 21:51 I have reviewed the current psychotropics carefully including drug interactions. Risk benefit ratio favors no change other than as noted in my dictated progress note. Diagnosis: Problems: (1) Impulse control disorder (2) Schizoaffective disorder, chronic condition with acute exacerbation (3) Anxiety disorder (4) Bipolar disorder with psychotic features (5) Schizoaffective disorder, bipolar type KUNAL BEST MD Aug 20, 2019 22:16
[2019-08-21 05:28] VITALS: BP 100/67
[2019-08-21] MEDS: LEVOTHYROXINE 100 MCG TABLET PO SCH (06:08)
--- NOTE | 2019-08-21 07:24 | PDOC ---
Exam Note: Vincent Note: This note is a late entry for 08/20/2019 covers elements not covered in my initial note. Subjective: The patient was seen individually in the evening of 08/20/2019. Per Lorena BAIRES, he slept 3 hours previous night. Per nursing report, he has appeared somewhat weird. He has been isolating in his room, withdrawn, intermittently hallucinating, put himself on the floor today and previous night. He is somewhat obsessive regarding thin liquids. We are unable to do video swallow and change in diet will have to be deferred till after his discharge and they are able to complete the video swallow. He has been in bed all day. I met with him in his room at length in the evening and then around 10 p.m. Emma BAIRES called me. The patient was hyperverbal, anxious, depressed having some tremors. We will consult Dr. Goncalves for the tremors. He was paranoid as well. We will start Zyprexa 2.5 mg q.2h. p.r.n. psychosis and agitation. Review of Systems: Ambulation impaired. No CV, , pulmonary, eye system symptoms on review. Mental Status Exam: Reasonably oriented. Speech coherent. Often response is monosyllabic. Abstraction fair. Computation impaired. Language function intact. Attention span short. Mood and affect withdrawn, hallucinating, isolating himself in his room. No suicidal or homicidal ideation. Laboratory Data: Reviewed. Impression: Schizoaffective disorder, bipolar type. Anxiety disorder unspecified. Impulse control disorder unspecified. Plan: We will continue Wellbutrin XL 300 mg a day. Clozaril was increased to 60 mg a day after absolute neutrophil count was unremarkable. Maintain Aricept 10 mg a day, Cogentin 1 mg b.i.d., lithium carbonate 300 mg b.i.d. Last level w as 0.9 mg. We will repeat level tomorrow morning, trazodone 100 mg h.s. Haldol p.r.n. Adjust further as clinically indicated. Assessment: Vital Signs/I&O: Vital Signs Date Time Temp Pulse Resp B/P (MAP) Pulse Ox O2 Delivery O2 Flow Rate FiO2 08/21/19 05:28 97.4 95 18 100/67 (78) 96 Room Air I & O 0 08/20/19 08/20/19 08/21/19 15:00 23:00 07:00 Intake Total 840 ml 720 ml Balance 840 ml 720 ml Current Medications: Meds: Current Medications Medications (Trade) Dose Ordered Sig/Sanna Route PRN Reason Start Time Stop Time Status Last Admin Dose Admin Olanzapine (ZyPREXA ZYDIS) 2.5 mg PRN Q2HR PRN PO 1ST CHOICE PSYCHOSIS 08/20/19 21:45 08/20/19 21:51 I have reviewed the current psychotropics carefully including drug interactions. Risk benefit ratio favors no change other than as noted in my dictated progress note. Diagnosis: Problems: (1) Bipolar disorder with psychotic features (2) Schizoaffective disorder, bipolar type (3) Anxiety disorder (4) Schizoaffective disorder, chronic condition with acute exacerbation (5) Impulse control disorder KUNAL BEST MD Aug 21, 2019 07:24
[2019-08-21] MEDS: METOPROLOL SUCC 24HR ER 25 MG TAB.ER.24H. PO SCH (08:13)
[2019-08-21] MEDS: PANTOPRAZOLE 40 MG TABLET. PO SCH (08:16)
[2019-08-21] MEDS: BENZTROPINE MESYLATE 1 MG TABLET PO SCH ×2 (08:16→21:31)
[2019-08-21] MEDS: LITHIUM CARBONATE 300 MG TABLET PO SCH ×2 (08:16→21:31)
[2019-08-21] MEDS: buPROPion XL 300 MG TAB.ER.24H. PO SCH (08:16)
[2019-08-21] MEDS: glipiZIDE ER 2.5 MG TAB.ER.24 PO SCH (08:16)
[2019-08-21] MEDS: DOCUSATE SODIUM 100 MG CAPSULE PO SCH ×2 (08:17→21:31)
[2019-08-21 16:56] VITALS: BP 97/66
[2019-08-21] MEDS: DONEPEZIL HCL 10 MG TABLET PO SCH (21:31)
[2019-08-21] MEDS: SIMVASTATIN 20 MG TABLET PO SCH (21:31)
[2019-08-21] MEDS: traZODone 100 MG TABLET. PO SCH (21:31)
[2019-08-21] MEDS: cloZAPine 100 MG TABLET PO SCH (21:31)
--- NOTE | 2019-08-21 22:31 | PDOC ---
Exam Note: Vincent Note: Please also refer to the separate dictated note~for this date of service dictated separately.~Patient seen individually. Discussed the patient with Nursing staff reviewed the chart.~Reviewed interim history and current functioning. Reviewed vital signs,~Labs/ Radiology~and current medications noted below. Continue current treatment with the changes noted in the dictated addendum note Assessment: Vital Signs/I&O: Vital Signs Date Time Temp Pulse Resp B/P (MAP) Pulse Ox O2 Delivery O2 Flow Rate FiO2 08/21/19 16:56 97.8 73 20 97/66 (76) 96 08/21/19 05:28 Room Air I & O 08/20/19 08/20/19 08/21/19 15:00 23:00 07:00 Intake Total 840 ml 720 ml Balance 840 ml 720 ml Labs: Laboratory Tests Test 08/21/19 06:18 08/21/19 07:55 [place] Level 1.2 mmol/L (0.6-1.2) [place] Last Dose Date 08/19 [place] Last Dose Time 2100 Glucose (Fingerstick) 190 mg/dL (70-99) H Current Medications: I have reviewed the current psychotropics carefully including drug interactions. Risk benefit ratio favors no change other than as noted in my dictated progress note. Diagnosis: Problems: (1) Impulse control disorder (2) Schizoaffective disorder, chronic condition with acute exacerbation (3) Anxiety disorder (4) Bipolar disorder with psychotic features (5) Schizoaffective disorder, bipolar type KUNAL BEST MD Aug 21, 2019 22:31
[2019-08-22 05:45] VITALS: BP 111/73
[2019-08-22] MEDS: LEVOTHYROXINE 100 MCG TABLET PO SCH (05:57)
[2019-08-22 06:40] LABS: BASO % 0 % (0-3); EOS % 0 % (0-3); HEMATOCRIT 38.5 % (39.0-53.0); HEMOGLOBIN 12.6 g/dL (13.0-17.5); LYMPH # 1.6 x10^3/uL (1.0-4.8); LYMPH % 16 % (24-48); MEAN CORPUSCULAR HEMOGLOBIN 29 pg (25-35); MEAN CORPUSCULAR HGB CONC 33 g/dL (31-37); MEAN CORPUSCULAR VOLUME 89 fL (79-100); MONO # 0.9 x10^3/uL (0.0-1.1); MONO % 9 % (0-9); NEUT # 7.4 x10^3uL (1.8-7.7); NEUT % 75 % (31-73); PLATELET COUNT 195 x10^3/uL (140-400); RED BLOOD COUNT 4.34 x10^6/uL (4.30-5.70); RED CELL DISTRIBUTION WIDTH 14.6 % (11.5-14.5); WHITE BLOOD COUNT 9.9 x10^3/uL (4.0-11.0)
[2019-08-22 06:54] LABS: ALBUMIN 2.8 g/dL (3.4-5.0); ALBUMIN/GLOBULIN RATIO 0.9 (1.0-1.7); CALCIUM 9.4 mg/dL (8.5-10.1); CREATININE 1.5 mg/dL (0.7-1.3); GFR 47.6; POTASSIUM 4.8 mmol/L (3.5-5.1); TOTAL BILIRUBIN 0.5 mg/dL (0.2-1.0); TOTAL PROTEIN 5.8 g/dL (6.4-8.2)
--- NOTE | 2019-08-22 07:33 | PDOC ---
Exam Note: Vincent Note: This note is a late entry for 08/21/2019 covers elements not covered in my initial note. Subjective: The patient was seen individually in the evening of 08/21/2019. Per Lorena BAIRES, he slept 2 hours previous night. The patient was seen by Dr. Goncalves, Neurology consult. No further recommendations noted. BP 100/67 mmHg. Metoprolol was held. He is tired of being dysphagia 2 diet. We will repeat his lithium level in the morning. He is withdrawn, spends much time in his bed during the day. Review of Systems: Ambulation impaired. No CV, , pulmonary, eye system symptoms on review. Mental Status Exam: Reasonably oriented. Speech coherent. Abstraction fair. Computation impaired. Language function intact. Attention span short. Mood and affect withdrawn, hallucinating, isolating himself in his room. No suicidal or homicidal ideation. Laboratory Data: Reviewed. Impression: Schizoaffective disorder, bipolar type. Anxiety disorder unspecified. Impulse control disorder unspecified. Plan: Clozaril was increased to 600 mg h.s. May need to increase further in due course. Continue Cogentin, Wellbutrin, Aricept, lithium, Provera, along with trazodone p.r.n. Assessment: Vital Signs/I&O: Vital Signs Date Time Temp Pulse Resp B/P (MAP) Pulse Ox O2 Delivery O2 Flow Rate FiO2 08/22/19 05:45 98.2 95 18 111/73 (86) 98 Room Air I & O 08/21/19 08/21/19 08/22/19 15:00 23:00 07:00 Intake Total 720 ml 360 ml Balance 720 ml 360 ml Labs: Laboratory Tests Test 08/21/19 07:55 08/22/19 06:28 Glucose (Fingerstick) 190 mg/dL (70-99) H White Blood Count 9.9 x10^3/uL (4.0-11.0) Red Blood Count 4.34 x10^6/uL (4.30-5.70) Hemoglobin 12.6 g/dL (13.0-17.5) L Hematocrit 38.5 % (39.0-53.0) L Mean Corpuscular Volume 89 fL (79-100) Mean Corpuscular Hemoglobin 29 pg (25-35) Mean Corpuscular Hemoglobin Concent 33 g/dL (31-37) Red Cell Distribution Width 14.6 % (11.5-14.5) H Platelet Count 195 x10^3/uL (140-400) Neutrophils (%) (Auto) 75 % (31-73) H Lymphocytes (%) (Auto) 16 % (24-48) L Monocytes (%) (Auto) 9 % (0-9) Eosinophils (%) (Auto) 0 % (0-3) Basophils (%) (Auto) 0 % (0-3) Neutrophils # (Auto) 7.4 x10^3uL (1.8-7.7) Lymphocytes # (Auto) 1.6 x10^3/uL (1.0-4.8) Monocytes # (Auto) 0.9 x10^3/uL (0.0-1.1) Eosinophils # (Auto) 0.0 x10^3/uL (0.0-0.7) Basophils # (Auto) 0.0 x10^3/uL (0.0-0.2) Sodium Level 146 mmol/L (136-145) H Potassium Level 4.8 mmol/L (3.5-5.1) Chloride Level 110 mmol/L (98-107) H Carbon Dioxide Level 30 mmol/L (21-32) Anion Gap 6 (6-14) Blood Urea Nitrogen 22 mg/dL (8-26) Creatinine 1.5 mg/dL (0.7-1.3) H Estimated GFR (Cockcroft-Gault) 47.6 BUN/Creatinine Ratio 15 (6-20) Glucose Level 188 mg/dL (70-99) H Calcium Level 9.4 mg/dL (8.5-10.1) Total Bilirubin 0.5 mg/dL (0.2-1.0) Aspartate Amino Transferase (AST) 20 U/L (15-37) Alanine Aminotransferase (ALT) 60 U/L (16-63) Alkaline Phosphatase 88 U/L (46-116) Total Protein 5.8 g/dL (6.4-8.2) L Albumin 2.8 g/dL (3.4-5.0) L Albumin/Globulin Ratio 0.9 (1.0-1.7) L Current Medications: I have reviewed the current psychotropics carefully including drug interactions. Risk benefit ratio favors no change other than as noted in my dictated progress note. Diagnosis: Problems: (1) Impulse control disorder (2) Schizoaffective disorder, chronic condition with acute exacerbation (3) Anxiety disorder (4) Bipolar disorder with psychotic features (5) Schizoaffective disorder, bipolar type KUNAL BEST MD Aug 22, 2019 07:33
[2019-08-22] MEDS: glipiZIDE ER 2.5 MG TAB.ER.24 PO SCH (09:00)
[2019-08-22] MEDS: buPROPion XL 300 MG TAB.ER.24H. PO SCH (10:24)
[2019-08-22] MEDS: BENZTROPINE MESYLATE 1 MG TABLET PO SCH ×2 (10:24→21:33)
[2019-08-22] MEDS: DOCUSATE SODIUM 100 MG CAPSULE PO SCH ×2 (10:25→21:33)
[2019-08-22] MEDS: LITHIUM CARBONATE 300 MG TABLET PO SCH (10:25)
[2019-08-22] MEDS: PANTOPRAZOLE 40 MG TABLET. PO SCH (10:25)
[2019-08-22] MEDS: METOPROLOL SUCC 24HR ER 25 MG TAB.ER.24H. PO SCH (10:26)
[2019-08-22 15:40] VITALS: BP 132/93
[2019-08-22] MEDS: SIMVASTATIN 20 MG TABLET PO SCH (21:32)
[2019-08-22] MEDS: cloZAPine 100 MG TABLET PO SCH (21:33)
[2019-08-22] MEDS: DONEPEZIL HCL 10 MG TABLET PO SCH (21:33)
--- NOTE | 2019-08-22 22:12 | PDOC ---
Exam Note: Vincent Note: Please also refer to the separate dictated note~for this date of service dictated separately.~Patient seen individually. Discussed the patient with Nursing staff reviewed the chart.~Reviewed interim history and current functioning. Reviewed vital signs,~Labs/ Radiology~and current medications noted below. Continue current treatment with the changes noted in the dictated addendum note Assessment: Vital Signs/I&O: Vital Signs Date Time Temp Pulse Resp B/P (MAP) Pulse Ox O2 Delivery O2 Flow Rate FiO2 08/22/19 15:40 98.4 106 24 132/93 (106) 96 08/22/19 05:45 Room Air I & O 08/21/19 08/21/19 08/22/19 15:00 23:00 07:00 Intake Total 720 ml 360 ml Balance 720 ml 360 ml Labs: Laboratory Tests Test 08/22/19 06:28 08/22/19 07:40 White Blood Count 9.9 x10^3/uL (4.0-11.0) Red Blood Count 4.34 x10^6/uL (4.30-5.70) Hemoglobin 12.6 g/dL (13.0-17.5) L Hematocrit 38.5 % (39.0-53.0) L Mean Corpuscular Volume 89 fL (79-100) Mean Corpuscular Hemoglobin 29 pg (25-35) Mean Corpuscular Hemoglobin Concent 33 g/dL (31-37) Red Cell Distribution Width 14.6 % (11.5-14.5) H Platelet Count 195 x10^3/uL (140-400) Neutrophils (%) (Auto) 75 % (31-73) H Lymphocytes (%) (Auto) 16 % (24-48) L Monocytes (%) (Auto) 9 % (0-9) Eosinophils (%) (Auto) 0 % (0-3) Basophils (%) (Auto) 0 % (0-3) Neutrophils # (Auto) 7.4 x10^3uL (1.8-7.7) Lymphocytes # (Auto) 1.6 x10^3/uL (1.0-4.8) Monocytes # (Auto) 0.9 x10^3/uL (0.0-1.1) Eosinophils # (Auto) 0.0 x10^3/uL (0.0-0.7) Basophils # (Auto) 0.0 x10^3/uL (0.0-0.2) Sodium Level 146 mmol/L (136-145) H Potassium Level 4.8 mmol/L (3.5-5.1) Chloride Level 110 mmol/L (98-107) H Carbon Dioxide Level 30 mmol/L (21-32) Anion Gap 6 (6-14) Blood Urea Nitrogen 22 mg/dL (8-26) Creatinine 1.5 mg/dL (0.7-1.3) H Estimated GFR (Cockcroft-Gault) 47.6 BUN/Creatinine Ratio 15 (6-20) Glucose Level 188 mg/dL (70-99) H Calcium Level 9.4 mg/dL (8.5-10.1) Total Bilirubin 0.5 mg/dL (0.2-1.0) Aspartate Amino Transferase (AST) 20 U/L (15-37) Alanine Aminotransferase (ALT) 60 U/L (16-63) Alkaline Phosphatase 88 U/L (46-116) Total Protein 5.8 g/dL (6.4-8.2) L Albumin 2.8 g/dL (3.4-5.0) L Albumin/Globulin Ratio 0.9 (1.0-1.7) L Glucose (Fingerstick) 116 mg/dL (70-99) H Current Medications: I have reviewed the current psychotropics carefully including drug interactions. Risk benefit ratio favors no change other than as noted in my dictated progress note. Diagnosis: Problems: (1) Impulse control disorder (2) Schizoaffective disorder, chronic condition with acute exacerbation (3) Anxiety disorder (4) Bipolar disorder with psychotic features (5) Schizoaffective disorder, bipolar type KUNAL BEST MD Aug 22, 2019 22:12
[2019-08-23 05:33] VITALS: BP 99/65
[2019-08-23] MEDS: LEVOTHYROXINE 100 MCG TABLET PO SCH (06:26)
[2019-08-23] MEDS: BENZTROPINE MESYLATE 1 MG TABLET PO SCH ×2 (08:32→21:21)
[2019-08-23] MEDS: DOCUSATE SODIUM 100 MG CAPSULE PO SCH ×2 (08:32→21:21)
[2019-08-23] MEDS: PANTOPRAZOLE 40 MG TABLET. PO SCH (08:32)
[2019-08-23] MEDS: glipiZIDE ER 2.5 MG TAB.ER.24 PO SCH (08:32)
[2019-08-23] MEDS: LITHIUM CARBONATE 300 MG TABLET PO SCH (08:36)
[2019-08-23] MEDS: METOPROLOL SUCC 24HR ER 25 MG TAB.ER.24H. PO SCH (09:00)
[2019-08-23 15:56] VITALS: BP 109/75
[2019-08-23] MEDS: SIMVASTATIN 20 MG TABLET PO SCH (21:20)
[2019-08-23] MEDS: DONEPEZIL HCL 10 MG TABLET PO SCH (21:21)
[2019-08-23] MEDS: cloZAPine 100 MG TABLET PO SCH (21:21)
--- NOTE | 2019-08-23 22:13 | PDOC ---
Exam Note: Vincent Note: Please also refer to the separate dictated note~for this date of service dictated separately.~Patient seen individually. Discussed the patient with Nursing staff reviewed the chart.~Reviewed interim history and current functioning. Reviewed vital signs,~Labs/ Radiology~and current medications noted below. Continue current treatment with the changes noted in the dictated addendum note Assessment: Vital Signs/I&O: Vital Signs Date Time Temp Pulse Resp B/P (MAP) Pulse Ox O2 Delivery O2 Flow Rate FiO2 08/23/19 15:56 98.6 102 18 109/75 (86) 99 08/22/19 05:45 Room Air I & O 08/22/19 08/22/19 08/23/19 15:00 23:00 07:00 Intake Total 240 ml Balance 240 ml Labs: Laboratory Tests Test 08/23/19 07:37 Glucose (Fingerstick) 149 mg/dL (70-99) H Current Medications: Meds: Current Medications Medications (Trade) Dose Ordered Sig/Sanna Route PRN Reason Start Time Stop Time Status Last Admin Dose Admin [place] Carbonate 300 mg DAILY PO 08/23/19 09:00 08/23/19 08:36 I have reviewed the current psychotropics carefully including drug interactions. Risk benefit ratio favors no change other than as noted in my dictated progress note. Diagnosis: Problems: (1) Bipolar disorder with psychotic features (2) Schizoaffective disorder, bipolar type (3) Impulse control disorder (4) Schizoaffective disorder, chronic condition with acute exacerbation (5) Anxiety disorder KUNAL BEST MD Aug 23, 2019 22:13
[2019-08-24 05:28] VITALS: BP 97/64
[2019-08-24] MEDS: LEVOTHYROXINE 100 MCG TABLET PO SCH (05:40)
--- NOTE | 2019-08-24 07:28 | PDOC ---
Exam Note: Vincent Note: This note is a late entry for 08/22/2019 covers elements not covered in my initial note. Subjective: The patient was seen individually in the morning of 08/22/2019 with treatment team meeting with Angella Cormier RN (social service staff), [facility] staff. The patients lithium level is 1.2. He is having some hair loss, tremors, resistive to getting out of bed, refusing to use the walker. We will have pharmacy consult to see if any of his medications is contributing to the hair loss and we will also reduce the lithium carbonate to 300 mg a day. Check CBC, CMP, lithium level in 3 days. Adjust further as indicated. Discussed with Lorena BAIRES in the evening. Nursing staff has reported him as weird. Pharmacy consult suggested Wellbutrin and trazodone contributing to hair loss. We will stop both of them. I met with him in his room, quite withdrawn, isolative. Review of Systems: Ambulation impaired. No CV, , pulmonary, eye system symptoms on review. He resents the thickened liquids and wants regular liquids. I addressed this with him. Mental Status Exam: Reasonably oriented. Speech coherent. Abstraction fair. Computation impaired. Language function intact. Attention span short. Mood and affect withdrawn, isolating himself in his room. No suicidal or homicidal ideation. Laboratory Data: Reviewed. BUN 22 and creatinine 1.5. Impression: Schizoaffective disorder, bipolar type. Anxiety disorder unspecified. Impulse control disorder unspecified. Plan: We will consider reduction of lithium, stopping Wellbutrin, trazodone. Make further adjustments as clinically indicated. Assessment: Vital Signs/I&O: Vital Signs Date Time Temp Pulse Resp B/P (MAP) Pulse Ox O2 Delivery O2 Flow Rate FiO2 08/24/19 05:28 98.3 113 16 97/64 (75) 98 Room Air I & O 08/23/19 08/23/19 08/24/19 15:00 23:00 07:00 Intake Total 960 ml 480 ml 240 ml Balance 960 ml 480 ml 240 ml Labs: Laboratory Tests Test 08/23/19 07:37 Glucose (Fingerstick) 149 mg/dL (70-99) H Current Medications: Meds: Current Medications Medications (Trade) Dose Ordered Sig/Sanna Route PRN Reason Start Time Stop Time Status Last Admin Dose Admin [place] Carbonate 300 mg DAILY PO 08/23/19 09:00 08/23/19 08:36 I have reviewed the current psychotropics carefully including drug interactions. Risk benefit ratio favors no change other than as noted in my dictated progress note. Diagnosis: Problems: (1) Schizoaffective disorder, chronic condition with acute exacerbation (2) Impulse control disorder (3) Anxiety disorder (4) Bipolar disorder with psychotic features (5) Schizoaffective disorder, bipolar type KUNAL BEST MD Aug 24, 2019 07:28
--- NOTE | 2019-08-24 08:04 | PDOC ---
Exam Note: Vincent Note: This note is a late entry for 08/23/2019 covers elements not covered in my initial note. Subjective: The patient was seen individually in the evening of 08/23/2019. Per Yung BAIRES, he slept 6-1/2 hours previous night. He has been manipulative with his medications, withdrawn, refusing the thickened liquids. Review of Systems: Ambulation impaired. No CV, , pulmonary, eye system symptoms on review. Positive for some tiredness. Mental Status Exam: Reasonably oriented. Speech coherent. Abstraction fair. Computation impaired. Language function intact. Attention span short. Mood and affect withdrawn, isolating himself in his room. No suicidal or homicidal ideation. Laboratory Data: Reviewed. Impression: Schizoaffective disorder, bipolar type. Anxiety disorder unspecified. Impulse control disorder unspecified. Plan: No change from prior note. We will await lithium level and adjust as clinically indicated. Assessment: Vital Signs/I&O: Vital Signs Date Time Temp Pulse Resp B/P (MAP) Pulse Ox O2 Delivery O2 Flow Rate FiO2 08/24/19 05:28 98.3 113 16 97/64 (75) 98 Room Air I & O 08/23/19 08/23/19 08/24/19 15:00 23:00 07:00 Intake Total 960 ml 480 ml 240 ml Balance 960 ml 480 ml 240 ml Labs: Laboratory Tests Test 08/24/19 07:40 Glucose (Fingerstick) 110 mg/dL (70-99) H Current Medications: Meds: Current Medications Medications (Trade) Dose Ordered Sig/Sanna Route PRN Reason Start Time Stop Time Status Last Admin Dose Admin [place] Carbonate 300 mg DAILY PO 08/23/19 09:00 08/23/19 08:36 I have reviewed the current psychotropics carefully including drug interactions. Risk benefit ratio favors no change other than as noted in my dictated progress note. Diagnosis: Problems: (1) Bipolar disorder with psychotic features (2) Schizoaffective disorder, bipolar type (3) Anxiety disorder (4) Impulse control disorder KUNAL BEST MD Aug 24, 2019 08:04
[2019-08-24] MEDS: DOCUSATE SODIUM 100 MG CAPSULE PO SCH ×2 (08:38→21:36)
[2019-08-24] MEDS: PANTOPRAZOLE 40 MG TABLET. PO SCH (08:38)
[2019-08-24] MEDS: glipiZIDE ER 2.5 MG TAB.ER.24 PO SCH (08:39)
[2019-08-24] MEDS: BENZTROPINE MESYLATE 1 MG TABLET PO SCH ×2 (08:39→21:36)
[2019-08-24] MEDS: METOPROLOL SUCC 24HR ER 25 MG TAB.ER.24H. PO SCH (08:39)
[2019-08-24] MEDS: LITHIUM CARBONATE 300 MG TABLET PO SCH (08:39)
[2019-08-24] MEDS ORDERED: CHOLECALCIFEROL (VITAMIN D3) 50,000 UNIT CAPSULE PO SCH (09:00)
[2019-08-24 16:42] VITALS: BP 108/73
[2019-08-24] MEDS: cloZAPine 100 MG TABLET PO SCH (21:36)
[2019-08-24] MEDS: DONEPEZIL HCL 10 MG TABLET PO SCH (21:36)
[2019-08-24] MEDS: SIMVASTATIN 20 MG TABLET PO SCH (21:36)
--- NOTE | 2019-08-24 22:22 | PDOC ---
Exam Note: Vincent Note: Please also refer to the separate dictated note~for this date of service dictated separately.~Patient seen individually. Discussed the patient with Nursing staff reviewed the chart.~Reviewed interim history and current functioning. Reviewed vital signs,~Labs/ Radiology~and current medications noted below. Continue current treatment with the changes noted in the dictated addendum note Assessment: Vital Signs/I&O: Vital Signs Date Time Temp Pulse Resp B/P (MAP) Pulse Ox O2 Delivery O2 Flow Rate FiO2 08/24/19 16:42 97.4 108 20 108/73 (85) 98 Room Air I & O 08/23/19 08/23/19 08/24/19 15:00 23:00 07:00 Intake Total 960 ml 480 ml 240 ml Balance 960 ml 480 ml 240 ml Labs: Laboratory Tests Test 08/24/19 07:40 Glucose (Fingerstick) 110 mg/dL (70-99) H Current Medications: Meds: Current Medications Medications (Trade) Dose Ordered Sig/Sanna Route PRN Reason Start Time Stop Time Status Last Admin Dose Admin Vitamin D (Vitamin D3) 50,000 unit QSA PO 08/24/19 09:00 08/24/19 15:15 DC 08/24/19 08:40 I have reviewed the current psychotropics carefully including drug interactions. Risk benefit ratio favors no change other than as noted in my dictated progress note. Diagnosis: Problems: (1) Bipolar disorder with psychotic features (2) Anxiety disorder (3) Schizoaffective disorder, chronic condition with acute exacerbation (4) Impulse control disorder KUNAL BEST MD Aug 24, 2019 22:22
[2019-08-25] MEDS: LEVOTHYROXINE 100 MCG TABLET PO SCH (05:37)
[2019-08-25 06:00] VITALS: BP 110/73
--- NOTE | 2019-08-25 07:29 | PDOC ---
Exam Note: Vincent Note: This note is a late entry for 08/24/2019 covers elements not covered in my initial note. Subjective: The patient was seen individually in the evening of 08/24/2019. Per Marty BAIRES, he spends much time in his room, comes out for snacks, otherwise, he is in bed which is where I met with him. He states he does not feel well but non-specific about this is usual. He does seem to talk to himself but perhaps this is a little better since we have increased the Clozaril. Review of Systems: Ambulation impaired. No CV, , pulmonary, eye system symptoms on review. Mental Status Exam: Reasonably oriented. Speech coherent. Abstraction fair. Computation impaired. Language function intact. Attention span short. Mood and affect withdrawn, isolating himself in his room. No suicidal or homicidal ideation. Laboratory Data: Reviewed. Impression: Schizoaffective disorder, bipolar type. Anxiety disorder unspecified. Impulse control disorder unspecified. Plan: No change from prior note. Clozaril was increased to 600 mg h.s. We may need to increase this again in a day or two. [place] carbonate 300 mg daily since level was 1.2 on 300 mg b.i.d. We will repeat a level. Adjust further as clinically indicated. Continue Cogentin, Aricept, and Provera 5 mg b.i.d. Assessment: Vital Signs/I&O: Vital Signs Date Time Temp Pulse Resp B/P (MAP) Pulse Ox O2 Delivery O2 Flow Rate FiO2 08/25/19 06:00 98.3 101 18 110/73 (85) 100 Room Air I & O 08/24/19 08/24/19 08/25/19 15:00 23:00 07:00 Intake Total 360 ml 480 ml Balance 360 ml 480 ml Labs: Laboratory Tests Test 08/24/19 07:40 08/25/19 07:23 Glucose (Fingerstick) 110 mg/dL (70-99) H 119 mg/dL (70-99) H Current Medications: Meds: Current Medications Medications (Trade) Dose Ordered Sig/Sanna Route PRN Reason Start Time Stop Time Status Last Admin Dose Admin Vitamin D (Vitamin D3) 50,000 unit QSA PO 08/24/19 09:00 08/24/19 15:15 DC 08/24/19 08:40 I have reviewed the current psychotropics carefully including drug interactions. Risk benefit ratio favors no change other than as noted in my dictated progress note. Diagnosis: Problems: (1) Schizoaffective disorder, bipolar type (2) Anxiety disorder (3) Impulse control disorder (4) Bipolar disorder with psychotic features KUNAL BEST MD Aug 25, 2019 07:29
[2019-08-25] MEDS: PANTOPRAZOLE 40 MG TABLET. PO SCH (08:41)
[2019-08-25] MEDS: glipiZIDE ER 2.5 MG TAB.ER.24 PO SCH (08:41)
[2019-08-25] MEDS: BENZTROPINE MESYLATE 1 MG TABLET PO SCH ×2 (08:41→20:08)
[2019-08-25] MEDS: DOCUSATE SODIUM 100 MG CAPSULE PO SCH ×2 (08:41→20:08)
[2019-08-25] MEDS: METOPROLOL SUCC 24HR ER 25 MG TAB.ER.24H. PO SCH (08:42)
[2019-08-25] MEDS: LITHIUM CARBONATE 300 MG TABLET PO SCH (08:42)
[2019-08-25 15:33] VITALS: BP 100/68
[2019-08-25] MEDS: DONEPEZIL HCL 10 MG TABLET PO SCH (20:08)
[2019-08-25] MEDS: SIMVASTATIN 20 MG TABLET PO SCH (20:08)
[2019-08-25] MEDS: cloZAPine 100 MG TABLET PO SCH (20:08)
--- NOTE | 2019-08-25 22:03 | PDOC ---
Exam Note: Vincent Note: Please also refer to the separate dictated note~for this date of service dictated separately.~Patient seen individually. Discussed the patient with Nursing staff reviewed the chart.~Reviewed interim history and current functioning. Reviewed vital signs,~Labs/ Radiology~and current medications noted below. Continue current treatment with the changes noted in the dictated addendum note Assessment: Vital Signs/I&O: Vital Signs Date Time Temp Pulse Resp B/P (MAP) Pulse Ox O2 Delivery O2 Flow Rate FiO2 08/25/19 15:33 98.6 91 16 100/68 (79) 99 08/25/19 06:00 Room Air I & O 08/24/19 08/24/19 08/25/19 15:00 23:00 07:00 Intake Total 360 ml 480 ml Balance 360 ml 480 ml Labs: Laboratory Tests Test 08/25/19 07:23 08/25/19 19:55 Glucose (Fingerstick) 119 mg/dL (70-99) H 136 mg/dL (70-99) H Current Medications: I have reviewed the current psychotropics carefully including drug interactions. Risk benefit ratio favors no change other than as noted in my dictated progress note. Diagnosis: Problems: (1) Bipolar disorder with psychotic features (2) Anxiety disorder (3) Schizoaffective disorder, bipolar type (4) Impulse control disorder KUNAL BEST MD Aug 25, 2019 22:03
--- NOTE | 2019-08-25 22:34 | CONS ---
DATE OF CONSULTATION: 08/21/2019 NEUROLOGY CONSULTATION REFERRING PHYSICIAN: Dr. George. REASON FOR CONSULTATION: Tremor, rule out seizure. HISTORY OF PRESENT ILLNESS: This is a 63-year-old right-handed male who was admitted on 08/09/2019 to [facility] on account of having suicidal ideations, refusing medications, aggressive behavior and intermittent agitation with psychotic features. The patient has been on multiple psychotropic medications including olanzapine and clozapine. Neuro consult was requested because the patient has had intermittent significant tremor of the upper extremity and sometimes lower extremities. According to the patient, he has been having "fainting spells" when he lost consciousness for a few seconds and goes to the floor. The patient did recall the event, but he denies bowel or bladder incontinence. According to the nursing staff. They have not seen any seizure-like activity since admission. The patient denies headaches, visual disturbances, nausea, vomiting, chest pain, shortness of breath or palpitation, dysarthria or dysphagia. He complains of generalized weakness mainly in the lower extremities and he has been using a walker for ambulation. PAST MEDICAL HISTORY: Significant for hypertension, hyperlipidemia, hypothyroidism, diabetes mellitus type 2, osteoarthritis. PAST PSYCHIATRIC PROBLEMS: Includes bipolar disorder, anxiety disorders, schizoaffective disorders. PAST SURGICAL HISTORY: Positive for tonsillectomy, appendectomy. FAMILY HISTORY: Noncontributory. SOCIAL HISTORY: The patient is single. He has no children. He denies smoking, alcohol drinking or illicit drug use. REVIEW OF SYSTEMS: A 12-point review of system was performed as mentioned above in history of present illness, otherwise unremarkable, except for frequent fainting spells. CURRENT MEDICATIONS: Include vitamin B12, vitamin D, vitamin D3, lithium, olanzapine, clozapine, Cogentin, metoprolol, glipizide, pantoprazole, levothyroxine, simvastatin, donepezil and Tylenol. ALLERGIES: No known drug allergies. PHYSICAL EXAMINATION: GENERAL: Well-developed, well-nourished male, in acute distress. He weighs 59.2 kilos. VITAL SIGNS: Blood pressure 97/66, respiratory rate 20, pulse is 73 and regular, temperature 97.8, oxygen saturation 96% on room air. HEENT: Normocephalic, atraumatic, otherwise unremarkable. NECK: Supple. Negative for carotid bruit, lymphadenopathy or thyromegaly. LUNGS: Clear to A and P. CARDIOVASCULAR: Regular rate and rhythm. Normal S1, S2. ABDOMEN: Soft. Bowel sounds positive. No palpable mass, organomegaly or tenderness. EXTREMITIES: Negative for cyanosis, clubbing or pitting edema. NEUROLOGICAL: Mental status: The patient is alert and oriented to time, place and person. Speech is fluid. There is no language dysfunction. Memory, judgment and abstracting thinkings are fair. The patient denies hallucination or delusion. Cranial nerves: Visual perez are full. The pupils are reactive to light and accommodation. The extraocular movements are intact. There is no nystagmus. There is no facial motor or sensory deficit. Hearing is intact bilaterally. The palate is elevated symmetrically. Sternocleidomastoid muscles are powerful bilaterally. The patient shrugs his shoulders symmetrically, protrudes his tongue in the midline without fasciculation or atrophy. Motor examination: No focal muscle bulk wasting. The tone is normal. The strength is 5/5 throughout. The patient has intermittent kinetic and postural tremors of both upper extremities. Sensory examination revealed normal pinprick, light touch, vibratory and position senses. Deep tendon reflexes were asymmetric and hypoactive without pathologic responses. Gait: The patient uses a walker for ambulation. DIAGNOSTIC DATA: Chest x-ray from 08/09/2019 revealed no acute pulmonary findings and head CT scan revealed no acute intracranial process, but it showed bilateral small vessel ischemic disease. A CT of the cervical spine revealed no fracture or subluxation noted, but there is multilevel degenerative disk disease. LABORATORY DATA: From 08/19/2019 revealed white blood cells of 6000, hemoglobin 11.9, hematocrit 36.4, platelet count 198,000. Chemistry is pending. Urinalysis is negative for urinary tract infections. Coagulation, normal D-dimer. Urine drug screen is negative. IMPRESSION: 1. Intermittent tremor of the upper extremities, aggravated by anxiety and being under stress, etiology uncertain, probably due to underlying multiple psychotropic medications. 2. Frequent fainting spells with loss of consciousness of uncertain etiology; however, seizure should be ruled out. 3. Multiple medical problems include hypertension, but today his blood pressure is low, hyperlipidemia, hypothyroidism, anemia, diabetes mellitus, gastroesophageal reflux disease. 4. Multiple medical problems include anxiety disorders, suicidal ideations, bipolar disorders, history of schizoaffective disorders and dementia. RECOMMENDATIONS: 1. Continue with current medical management. However, if the patient had witnessed seizure-like activities, he should have an electroencephalogram. 2. Continue with current medical management initiated by Dr. Vera. 3. Continue with current psychiatric management initiated by Dr. George. M Fozia DOW MD DR: KAROLINE/merced JOB#: [id number] / [id number]
--- NOTE | 2019-08-26 00:05 | PN ---
DATE: 08/22/2019 SUBJECTIVE: The patient denies any new medical or neurological complaints; however, he continues to complain from intermittent tremor and dizziness described as spinning mainly when he stands up quickly or he changed his body quickly. The patient denies any recent falls or seizure-like activities. However, it has been reported he has been agitated, refused medications and refused to leave the bed and using a walker. The patient stated he has been losing his hair. He denies chest pain, shortness of breath or palpitation, dysarthria, dysphagia. OBJECTIVE: GENERAL: Well-developed, well-nourished male, not in acute distress. VITAL SIGNS: Blood pressure 99/65, respiratory rate 20, pulse is 109, temperature 97.9, oxygen saturation 96% on room air. HEENT: Normocephalic, atraumatic, otherwise unremarkable. NECK: Supple. Negative for carotid bruit, lymphadenopathy or thyromegaly. LUNGS: Clear to A and P. CARDIOVASCULAR: Regular rate and rhythm, normal S1, S2. ABDOMEN: Soft. Bowel sounds positive. EXTREMITIES: Negative for cyanosis, clubbing or edema. NEUROLOGICAL EXAM: Mental Status: The patient is alert and oriented x 2. Speech is fluent. There is no language dysfunction. Memory, judgment, and abstract thinking are fair. The patient denies hallucination or delusion. Cranial nerves are intact. No nitrite. Motor examination: No focal muscle bulk was seen. The tone is normal. The strength is 4/5 throughout. The patient has fine intermittent postural and kinetic tremors of both hands. Sensory examination revealed normal pinprick and light touch senses throughout. Deep tendon reflexes were asymmetric and hypoactive without pathologic responses. Gait: The patient uses a walker for ambulation. LABORATORY DATA: CBC revealed white blood cells of 9.9 thousand, hemoglobin 12.6, hematocrit 38.5, platelet count 195,000. Chemistry revealed sodium of 146, potassium 4.8, chloride 110, CO2 of 30, BUN 22, creatinine 1.5, glucose 188, plasma osmolality is high at 308, calcium 9.4, magnesium normal at 2.1. Iron is low at 42 and low iron saturation at 13. Normal liver enzymes with normal troponin level and high CRP at 9.2 and elevated LDL at 121 with normal vitamin B12, vitamin D, and TSH. [place] level on 08/21/2019 was normal at 1.2. IMPRESSION: 1. Intermittent tremor of the upper extremity, probably due to underlying psychotropic. 2. Multiple medical problems include diabetes mellitus, hypertension, hyperlipidemia, hypothyroidism, gastroesophageal reflux disease. 3. Schizoaffective disorder. 4. Bipolar disorder with psychotic features and anxiety disorder. RECOMMENDATIONS: We will continue with current medical and psychiatric care. M Fozia DOW MD DR: KAROLINE/merced JOB#: [id number] / [id number]
[2019-08-26] MEDS: LEVOTHYROXINE 100 MCG TABLET PO SCH (05:10)
[2019-08-26 06:08] VITALS: BP 155/98
[2019-08-26 06:12] VITALS: BP 98/64
[2019-08-26 06:37] LABS: BASO % 0 % (0-3); EOS % 0 % (0-3); HEMATOCRIT 38.4 % (39.0-53.0); HEMOGLOBIN 12.5 g/dL (13.0-17.5); LYMPH % 24 % (24-48); MEAN CORPUSCULAR HEMOGLOBIN 29 pg (25-35); MEAN CORPUSCULAR HGB CONC 33 g/dL (31-37); MEAN CORPUSCULAR VOLUME 89 fL (79-100); MONO # 0.6 x10^3/uL (0.0-1.1); MONO % 8 % (0-9); NEUT # 5.7 x10^3uL (1.8-7.7); NEUT % 68 % (31-73); PLATELET COUNT 227 x10^3/uL (140-400); RED BLOOD COUNT 4.33 x10^6/uL (4.30-5.70); RED CELL DISTRIBUTION WIDTH 14.8 % (11.5-14.5); WHITE BLOOD COUNT 8.4 x10^3/uL (4.0-11.0)
--- NOTE | 2019-08-26 07:40 | PDOC ---
Exam Note: Vincent Note: This note is a late entry for 08/25/2019 covers elements not covered in my initial note. Subjective: The patient was seen individually in the evening of 08/25/2019. Per Ge BAIRES, he slept 3-1/2 hours previous night. I met with him in his room. Repeat swallow study is recommended. Dysphagia-2 diet and video swallow to be done post discharge before regular liquids are permitted. He has been isolative. He was less anxious and less negative as I met with him, not stating that he was not well but indicating that may be he is getting a little better. Review of Systems: Ambulation impaired. No CV, , pulmonary, eye system symptoms on review. Mental Status Exam: Reasonably oriented. Speech coherent. Abstraction fair. Computation impaired. Language function intact. Attention span short. Mood and affect withdrawn, isolating himself in his room. No suicidal or homicidal ideation. Laboratory Data: Reviewed. Impression: Schizoaffective disorder, bipolar type. Anxiety disorder unspecified. Impulse control disorder unspecified. Plan: No change from prior note. Assessment: Vital Signs/I&O: Vital Signs Date Time Temp Pulse Resp B/P (MAP) Pulse Ox O2 Delivery O2 Flow Rate FiO2 08/26/19 06:12 97.8 90 16 98/64 (75) 100 Room Air I & O 08/25/19 08/25/19 08/26/19 15:00 23:00 07:00 Intake Total 240 ml 360 ml Balance 240 ml 360 ml Labs: Laboratory Tests Test 08/25/19 19:55 08/26/19 06:20 Glucose (Fingerstick) 136 mg/dL (70-99) H White Blood Count 8.4 x10^3/uL (4.0-11.0) Red Blood Count 4.33 x10^6/uL (4.30-5.70) Hemoglobin 12.5 g/dL (13.0-17.5) L Hematocrit 38.4 % (39.0-53.0) L Mean Corpuscular Volume 89 fL (79-100) Mean Corpuscular Hemoglobin 29 pg (25-35) Mean Corpuscular Hemoglobin Concent 33 g/dL (31-37) Red Cell Distribution Width 14.8 % (11.5-14.5) H Platelet Count 227 x10^3/uL (140-400) Neutrophils (%) (Auto) 68 % (31-73) Lymphocytes (%) (Auto) 24 % (24-48) Monocytes (%) (Auto) 8 % (0-9) Eosinophils (%) (Auto) 0 % (0-3) Basophils (%) (Auto) 0 % (0-3) Neutrophils # (Auto) 5.7 x10^3uL (1.8-7.7) Lymphocytes # (Auto) 2.0 x10^3/uL (1.0-4.8) Monocytes # (Auto) 0.6 x10^3/uL (0.0-1.1) Eosinophils # (Auto) 0.0 x10^3/uL (0.0-0.7) Basophils # (Auto) 0.0 x10^3/uL (0.0-0.2) Current Medications: I have reviewed the current psychotropics carefully including drug interactions. Risk benefit ratio favors no change other than as noted in my dictated progress note. Diagnosis: Problems: (1) Schizoaffective disorder, bipolar type (2) Anxiety disorder (3) Impulse control disorder KUNAL BEST MD Aug 26, 2019 07:39
[2019-08-26] MEDS: DOCUSATE SODIUM 100 MG CAPSULE PO SCH ×2 (08:28→19:47)
[2019-08-26] MEDS: METOPROLOL SUCC 24HR ER 25 MG TAB.ER.24H. PO SCH (08:28)
[2019-08-26] MEDS: LITHIUM CARBONATE 300 MG TABLET PO SCH (08:28)
[2019-08-26] MEDS: PANTOPRAZOLE 40 MG TABLET. PO SCH (08:28)
[2019-08-26] MEDS: glipiZIDE ER 2.5 MG TAB.ER.24 PO SCH (08:28)
[2019-08-26] MEDS: BENZTROPINE MESYLATE 1 MG TABLET PO SCH ×2 (08:28→19:48)
--- NOTE | 2019-08-26 12:08 | TX PLAN ---
Interdisciplinary Tx Plan Admission Information Aug 09, 2019 at 22:33 Legal Status (on Admission): Voluntary DPOA/Guardian Name: Elizabeth Alexandra (Public Data Processing Systems Consultant) Contact Other Contact Name: Grand Mullen Other Contact Verified Code Status: Full Code Allergies: Coded Allergies: No Known Drug Allergies (Unverified , 01/09/19) Diagnoses Primary Diagnosis: Schizoaffective D/O, Bipolar type; anxiety unspecified; impulse control d/o Reasons for Admission: Depressed, Angry, Anxiety/Panic, Suicidal ideation, Poor impulse control Problem in Patient's Words: N/A Additional Admission Comments: According to the intake, pt is refusing medications, refusing meals because he wants to , increase in agitation and SI. Problems Active Problems: Non-compliant with medications Refusal of meds Somewhat demanding Swallow concerns Inactive Problems: Appropriate during Covoid isolation Pt Strengths/Limitations Ability for Dent: Poor Cognitive Functioning/Ability: Fair Communication Skills/Ability: Fair Financial Resources: Fair Insight/Judgement: Poor Intellectual Ability: Fair Physical Health: Poor Social Skills: Fair Stability in Family: Poor Stability in School/Work: Poor Verbal Skills: Fair Discharge Criteria Discharge Criteria: Able meet basic life need, Adequate arrangements @DC, Improved behavior, Improved mood/thought Preliminary Discharge Plan Preliminary DC Plan: Current Living Arrange., Outpatient Followup Special Precautions Special Precautions: Swallowing/Choking Fall Risk: Low Initial D/C Plan Pt will plan to return to [facility] in [place] Identified Discharge Needs: Continued psychiatric services Safety Plan Currently Utilized Resources Currently Utilized Resources/P: Continued PCP services Does have a psychiatrist Identified Problems/Hx/Goals Objectives/Short-Term Goals Short Term Goals: Medication Stabilization, Monitor Med Effects, No Suicidal/Malachi. ideation, Promote Coping Skill Short Term Goals in Patient's: N/A Interventions/Frequency Staff Interventions/Frequency&: Psychiatrist to assess pt at least 3x per week. Social Work to assess pt at least 2x per week. Nursing to assess bx, medications and complete 15 minute checks daily. Encourage group particpation in activities or 1:1 engagement dependent on Activity Dept assessment and goals. 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 Did not work afterwards due to his diagnosis. 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 Pt is withdrawn to his room and needs encouragement to participate in any group activity. Pt has poor eye contact; but is compliant with all cares and staff direction. Pt does need to be watched as he has been attempting to get water, despite his need to be on honey thickened liquids per the speech eval. Speech therapy does not feel the need to come and re-eval pt and will not change his diet of dysphagia II; however, does recommend that once pt is discharged that he receive a speech evaluation. Pt is currently on Reynolds, Cogentin, Clozaril and Aricept. SW to follow up as to why pt is on Provera and get back to the team. ELOS is . JUAN MANUEL COMER Aug 26, 2019 12:08
[2019-08-26 16:23] VITALS: BP 102/65
[2019-08-26] MEDS: SIMVASTATIN 20 MG TABLET PO SCH (19:47)
[2019-08-26] MEDS: cloZAPine 100 MG TABLET PO SCH (19:48)
[2019-08-26] MEDS: DONEPEZIL HCL 10 MG TABLET PO SCH (19:48)
--- NOTE | 2019-08-26 22:04 | PDOC ---
Exam Note: Vincent Note: Please also refer to the separate dictated note~for this date of service dictated separately.~Patient seen individually. Discussed the patient with Nursing staff reviewed the chart.~Reviewed interim history and current functioning. Reviewed vital signs,~Labs/ Radiology~and current medications noted below. Continue current treatment with the changes noted in the dictated addendum note Assessment: Vital Signs/I&O: Vital Signs Date Time Temp Pulse Resp B/P (MAP) Pulse Ox O2 Delivery O2 Flow Rate FiO2 08/26/19 16:23 98.2 96 18 102/65 (77) 98 08/26/19 06:12 Room Air I & O 08/25/19 08/25/19 08/26/19 15:00 23:00 07:00 Intake Total 240 ml 360 ml Balance 240 ml 360 ml Labs: Laboratory Tests Test 08/26/19 06:20 08/26/19 07:38 08/26/19 20:18 White Blood Count 8.4 x10^3/uL (4.0-11.0) Red Blood Count 4.33 x10^6/uL (4.30-5.70) Hemoglobin 12.5 g/dL (13.0-17.5) L Hematocrit 38.4 % (39.0-53.0) L Mean Corpuscular Volume 89 fL (79-100) Mean Corpuscular Hemoglobin 29 pg (25-35) Mean Corpuscular Hemoglobin Concent 33 g/dL (31-37) Red Cell Distribution Width 14.8 % (11.5-14.5) H Platelet Count 227 x10^3/uL (140-400) Neutrophils (%) (Auto) 68 % (31-73) Lymphocytes (%) (Auto) 24 % (24-48) Monocytes (%) (Auto) 8 % (0-9) Eosinophils (%) (Auto) 0 % (0-3) Basophils (%) (Auto) 0 % (0-3) Neutrophils # (Auto) 5.7 x10^3uL (1.8-7.7) Lymphocytes # (Auto) 2.0 x10^3/uL (1.0-4.8) Monocytes # (Auto) 0.6 x10^3/uL (0.0-1.1) Eosinophils # (Auto) 0.0 x10^3/uL (0.0-0.7) Basophils # (Auto) 0.0 x10^3/uL (0.0-0.2) Herman Level 0.7 mmol/L (0.6-1.2) Herman Last Dose Date Unknown Herman Last Dose Time Unknown Glucose (Fingerstick) 120 mg/dL (70-99) H 131 mg/dL (70-99) H Current Medications: I have reviewed the current psychotropics carefully including drug interactions. Risk benefit ratio favors no change other than as noted in my dictated progress note. Diagnosis: Problems: (1) Bipolar disorder with psychotic features (2) Anxiety disorder (3) Schizoaffective disorder, bipolar type (4) Impulse control disorder KUNAL BEST MD Aug 26, 2019 22:04
[2019-08-27] MEDS: LEVOTHYROXINE 100 MCG TABLET PO SCH (05:14)
[2019-08-27 06:14] VITALS: BP 135/74
[2019-08-27] MEDS: PANTOPRAZOLE 40 MG TABLET. PO SCH (08:08)
[2019-08-27] MEDS: DOCUSATE SODIUM 100 MG CAPSULE PO SCH ×2 (08:08→19:51)
[2019-08-27] MEDS: LITHIUM CARBONATE 300 MG TABLET PO SCH (08:08)
[2019-08-27] MEDS: BENZTROPINE MESYLATE 1 MG TABLET PO SCH ×2 (08:08→19:50)
[2019-08-27] MEDS: METOPROLOL SUCC 24HR ER 25 MG TAB.ER.24H. PO SCH (08:08)
[2019-08-27] MEDS: glipiZIDE ER 2.5 MG TAB.ER.24 PO SCH (08:08)
[2019-08-27 16:08] VITALS: BP 103/65
[2019-08-27] MEDS: SIMVASTATIN 20 MG TABLET PO SCH (19:50)
[2019-08-27] MEDS: DONEPEZIL HCL 10 MG TABLET PO SCH (19:50)
[2019-08-27] MEDS ORDERED: cloZAPine 100 MG TABLET PO SCH (21:00)
--- NOTE | 2019-08-27 22:05 | PDOC ---
Exam Note: Vincent Note: Please also refer to the separate dictated note~for this date of service dictated separately.~Patient seen individually. Discussed the patient with Nursing staff reviewed the chart.~Reviewed interim history and current functioning. Reviewed vital signs,~Labs/ Radiology~and current medications noted below. Continue current treatment with the changes noted in the dictated addendum note Assessment: Vital Signs/I&O: Vital Signs Date Time Temp Pulse Resp B/P (MAP) Pulse Ox O2 Delivery O2 Flow Rate FiO2 08/27/19 16:08 98.0 108 18 103/65 (78) 94 Room Air I & O 08/26/19 08/26/19 08/27/19 15:00 23:00 07:00 Intake Total 720 ml 480 ml Balance 720 ml 480 ml Labs: Laboratory Tests Test 08/27/19 07:22 08/27/19 19:03 Glucose (Fingerstick) 115 mg/dL (70-99) H 107 mg/dL (70-99) H Current Medications: Meds: Current Medications Medications (Trade) Dose Ordered Sig/Sanna Route PRN Reason Start Time Stop Time Status Last Admin Dose Admin Clozapine (Clozaril) 625 mg HS PO 08/27/19 21:00 08/27/19 20:47 DC 08/27/19 19:51 I have reviewed the current psychotropics carefully including drug interactions. Risk benefit ratio favors no change other than as noted in my dictated progress note. Diagnosis: Problems: (1) Bipolar disorder with psychotic features (2) Anxiety disorder (3) Impulse control disorder KUNAL BEST MD Aug 27, 2019 22:05
[2019-08-28 05:00] VITALS: BP 113/75
[2019-08-28] MEDS: LEVOTHYROXINE 100 MCG TABLET PO SCH (05:14)
--- NOTE | 2019-08-28 07:23 | PDOC ---
Exam Note: Vincent Note: This note is a late entry for 08/26/2019 covers elements not covered in my initial note. Subjective: The patient was seen individually in the morning of 08/26/2019 with treatment team meeting with Angella (social service staff), Priscilla Activity Therapy staff, YAMIL Larsen. We discussed inquiring why the patient was on Provera since we had seen no sexually inappropriate behaviors. Later after treatment team meeting Kylah got this information from intermediate indicating that patient had been sexually inappropriate at the facility in the past and therefore the Provera was started. I had initially thought of stopping it but then on further consideration since we are adjusting the rest of the psychotropics we will leave the Provera unchanged and I will make a note in the discharge summary for the intermediate to consider stopping it if no sexually inappropriate is noted about two months post discharge. The patient was also seen in the evening with Marty BAIRES, he slept 5 hours previous night. Appetite is 70%. He has been withdrawn, spends much time in bed, but did play trivia in the activity therapy group. Absolute neutrophil count is 5712. Overall the patient remains somewhat paranoid, withdrawn, talks to himself at times but less evident recently. [place] level is 0.7. We will repeat it in two days on lithium carbonate 300 mg daily. Review of Systems: Positive for tiredness. No CV, , pulmonary, eye system symptoms on review. Mental Status Exam: Reasonably oriented. I met with him in his room in the evening. Speech coherent. Abstraction fair. Computation impaired. Language function intact. Attention span short. Mood and affect withdrawn, paranoid, not very verbal. Laboratory Data: Reviewed. Impression: Schizoaffective disorder, bipolar type. Anxiety disorder unspecified. Impulse control disorder unspecified. Plan: [place] level is 0.7. We will repeat it in two days on lithium carbonate 300 mg daily. Absolute neutrophil count is unremarkable on the Clozaril 600 mg h.s. We will watch him another day and then may need to increase Clozaril further as clinically indicated. Continue rest of the psychotropics unchanged. Assessment: Vital Signs/I&O: Vital Signs Date Time Temp Pulse Resp B/P (MAP) Pulse Ox O2 Delivery O2 Flow Rate FiO2 08/28/19 05:00 97.5 95 16 113/75 (88) 99 08/27/19 16:08 Room Air I & O 08/27/19 08/27/19 08/28/19 15:00 23:00 07:00 Intake Total 960 ml 480 ml Balance 960 ml 480 ml Labs: Laboratory Tests Test 08/27/19 19:03 Glucose (Fingerstick) 107 mg/dL (70-99) H Current Medications: Meds: Current Medications Medications (Trade) Dose Ordered Sig/Sanna Route PRN Reason Start Time Stop Time Status Last Admin Dose Admin Clozapine (Clozaril) 625 mg HS PO 08/27/19 21:00 08/27/19 20:47 DC 08/27/19 19:51 I have reviewed the current psychotropics carefully including drug interactions. Risk benefit ratio favors no change other than as noted in my dictated progress note. Diagnosis: Problems: (1) Bipolar disorder with psychotic features (2) Anxiety disorder (3) Schizoaffective disorder, bipolar type (4) Impulse control disorder KUNAL BEST MD Aug 28, 2019 07:23
[2019-08-28] MEDS: PANTOPRAZOLE 40 MG TABLET. PO SCH (08:03)
[2019-08-28] MEDS: DOCUSATE SODIUM 100 MG CAPSULE PO SCH ×2 (08:03→20:47)
[2019-08-28] MEDS: BENZTROPINE MESYLATE 1 MG TABLET PO SCH ×2 (08:03→20:47)
[2019-08-28] MEDS: glipiZIDE ER 2.5 MG TAB.ER.24 PO SCH (08:03)
[2019-08-28] MEDS: LITHIUM CARBONATE 300 MG TABLET PO SCH (08:04)
[2019-08-28] MEDS: METOPROLOL SUCC 24HR ER 25 MG TAB.ER.24H. PO SCH (08:04)
--- NOTE | 2019-08-28 08:05 | PDOC ---
Exam Note: Vincent Note: This note is a late entry for 08/27/2019 covers elements not covered in my initial note. Subjective: The patient was seen individually in the evening of 08/27/2019. Per Marty BAIRES, he slept 7 hours previous night. He was somewhat irritable in the mornings, withdrawn, less sarcastic nevertheless. He has noted to be talking to himself at times per nursing report. Review of Systems: I met with him in his room, withdrawn, lying in bed. No CV, , pulmonary, eye system symptoms on review. He does admit to being tired. Mental Status Exam: Reasonably oriented. Speech coherent. Abstraction fair. Computation impaired. Language function intact. Attention span short. Mood and affect withdrawn. Laboratory Data: Reviewed. Impression: Schizoaffective disorder, bipolar type. Anxiety disorder unspecified. Impulse control disorder unspecified. Plan: We will increase Clozaril from 600 mg h.s. to 625 mg h.s. given his ongoing psychotic symptoms noted by nursing staff to be talking to himself. Continue rest of the psychotropics unchanged. [place] carbonate 300 mg daily. Level is 0.7, Aricept 10 mg a day, Cogentin 1 mg twice a day, Provera 5 mg b.i.d., Haldol p.r.n. Assessment: Vital Signs/I&O: Vital Signs Date Time Temp Pulse Resp B/P (MAP) Pulse Ox O2 Delivery O2 Flow Rate FiO2 08/28/19 05:00 97.5 95 16 113/75 (88) 99 08/27/19 16:08 Room Air I & O 08/27/19 08/27/19 08/28/19 15:00 23:00 07:00 Intake Total 960 ml 480 ml Balance 960 ml 480 ml Labs: Laboratory Tests Test 08/27/19 19:03 08/28/19 07:49 Glucose (Fingerstick) 107 mg/dL (70-99) H 105 mg/dL (70-99) H Current Medications: Meds: Current Medications Medications (Trade) Dose Ordered Sig/Sanna Route PRN Reason Start Time Stop Time Status Last Admin Dose Admin Clozapine (Clozaril) 625 mg HS PO 08/27/19 21:00 08/27/19 20:47 DC 08/27/19 19:51 I have reviewed the current psychotropics carefully including drug interactions. Risk benefit ratio favors no change other than as noted in my dictated progress note. Diagnosis: Problems: (1) Bipolar disorder with psychotic features (2) Anxiety disorder (3) Impulse control disorder (4) Schizoaffective disorder, bipolar type KUNAL BEST MD Aug 28, 2019 08:05
[2019-08-28 16:04] VITALS: BP 94/68
[2019-08-28] MEDS: SIMVASTATIN 20 MG TABLET PO SCH (20:47)
[2019-08-28] MEDS: cloZAPine 100 MG TABLET PO SCH (20:47)
[2019-08-28] MEDS: DONEPEZIL HCL 10 MG TABLET PO SCH (20:47)
[2019-08-28] MEDS: cloZAPine 25 MG TABLET PO SCH (20:47)
--- NOTE | 2019-08-28 22:34 | PDOC ---
Exam Note: Vincent Note: Please also refer to the separate dictated note~for this date of service dictated separately.~Patient seen individually. Discussed the patient with Nursing staff reviewed the chart.~Reviewed interim history and current functioning. Reviewed vital signs,~Labs/ Radiology~and current medications noted below. Continue current treatment with the changes noted in the dictated addendum note Assessment: Vital Signs/I&O: Vital Signs Date Time Temp Pulse Resp B/P (MAP) Pulse Ox O2 Delivery O2 Flow Rate FiO2 08/28/19 16:04 99.3 95 20 94/68 (77) 98 08/27/19 16:08 Room Air I & O 08/27/19 08/27/19 08/28/19 15:00 23:00 07:00 Intake Total 960 ml 480 ml Balance 960 ml 480 ml Labs: Laboratory Tests Test 08/28/19 07:49 Glucose (Fingerstick) 105 mg/dL (70-99) H Current Medications: Meds: Current Medications Medications (Trade) Dose Ordered Sig/Sanna Route PRN Reason Start Time Stop Time Status Last Admin Dose Admin Clozapine (Clozaril) 600 mg HS PO 08/28/19 21:00 08/28/19 20:47 Clozapine (Clozaril) 25 mg HS PO 08/28/19 21:00 08/28/19 20:47 I have reviewed the current psychotropics carefully including drug interactions. Risk benefit ratio favors no change other than as noted in my dictated progress note. Diagnosis: Problems: (1) Anxiety disorder (2) Impulse control disorder (3) Schizoaffective disorder, chronic condition with acute exacerbation (4) Bipolar disorder with psychotic features KUNAL BEST MD Aug 28, 2019 22:34
[2019-08-29 05:13] VITALS: BP 107/76
[2019-08-29] MEDS: LEVOTHYROXINE 100 MCG TABLET PO SCH (05:39)
[2019-08-29 06:33] LABS: BASO % 0 % (0-3); EOS % 0 % (0-3); HEMOGLOBIN 12.9 g/dL (13.0-17.5); LYMPH # 2.4 x10^3/uL (1.0-4.8); LYMPH % 23 % (24-48); MEAN CORPUSCULAR HEMOGLOBIN 29 pg (25-35); MEAN CORPUSCULAR HGB CONC 33 g/dL (31-37); MEAN CORPUSCULAR VOLUME 88 fL (79-100); MONO # 0.9 x10^3/uL (0.0-1.1); MONO % 8 % (0-9); NEUT # 7.2 x10^3uL (1.8-7.7); NEUT % 69 % (31-73); PLATELET COUNT 226 x10^3/uL (140-400); RED BLOOD COUNT 4.46 x10^6/uL (4.30-5.70); RED CELL DISTRIBUTION WIDTH 14.5 % (11.5-14.5); WHITE BLOOD COUNT 10.5 x10^3/uL (4.0-11.0)
[2019-08-29 06:46] LABS: ALBUMIN 2.7 g/dL (3.4-5.0); ALBUMIN/GLOBULIN RATIO 0.9 (1.0-1.7); CALCIUM 8.7 mg/dL (8.5-10.1); CREATININE 1.5 mg/dL (0.7-1.3); GFR 47.6; POTASSIUM 3.9 mmol/L (3.5-5.1); TOTAL BILIRUBIN 0.6 mg/dL (0.2-1.0); TOTAL PROTEIN 5.6 g/dL (6.4-8.2)
[2019-08-29] MEDS: BENZTROPINE MESYLATE 1 MG TABLET PO SCH ×2 (09:12→21:23)
[2019-08-29] MEDS: DOCUSATE SODIUM 100 MG CAPSULE PO SCH ×2 (09:12→21:23)
[2019-08-29] MEDS: PANTOPRAZOLE 40 MG TABLET. PO SCH (09:12)
[2019-08-29] MEDS: LITHIUM CARBONATE 300 MG TABLET PO SCH (09:12)
[2019-08-29] MEDS: glipiZIDE ER 2.5 MG TAB.ER.24 PO SCH (09:13)
[2019-08-29] MEDS: METOPROLOL SUCC 24HR ER 25 MG TAB.ER.24H. PO SCH (09:13)
[2019-08-29 15:34] VITALS: BP 153/78
[2019-08-29] MEDS: cloZAPine 100 MG TABLET PO SCH (21:23)
[2019-08-29] MEDS: SIMVASTATIN 20 MG TABLET PO SCH (21:23)
[2019-08-29] MEDS: DONEPEZIL HCL 10 MG TABLET PO SCH (21:23)
[2019-08-29] MEDS: cloZAPine 25 MG TABLET PO SCH (21:23)
--- NOTE | 2019-08-29 22:02 | PDOC ---
Exam Note: Vincent Note: Please also refer to the separate dictated note~for this date of service dictated separately.~Patient seen individually. Discussed the patient with Nursing staff reviewed the chart.~Reviewed interim history and current functioning. Reviewed vital signs,~Labs/ Radiology~and current medications noted below. Continue current treatment with the changes noted in the dictated addendum note Assessment: Vital Signs/I&O: Vital Signs Date Time Temp Pulse Resp B/P (MAP) Pulse Ox O2 Delivery O2 Flow Rate FiO2 08/29/19 15:34 98.0 62 16 153/78 (103) 98 08/27/19 16:08 Room Air I & O 08/28/19 08/28/19 08/29/19 15:00 23:00 07:00 Intake Total 600 ml 360 ml 360 ml Balance 600 ml 360 ml 360 ml Labs: Laboratory Tests Test 08/29/19 06:01 08/29/19 07:34 08/29/19 17:05 08/29/19 19:29 White Blood Count 10.5 x10^3/uL (4.0-11.0) Red Blood Count 4.46 x10^6/uL (4.30-5.70) Hemoglobin 12.9 g/dL (13.0-17.5) L Hematocrit 39.0 % (39.0-53.0) Mean Corpuscular Volume 88 fL (79-100) Mean Corpuscular Hemoglobin 29 pg (25-35) Mean Corpuscular Hemoglobin Concent 33 g/dL (31-37) Red Cell Distribution Width 14.5 % (11.5-14.5) Platelet Count 226 x10^3/uL (140-400) Neutrophils (%) (Auto) 69 % (31-73) Lymphocytes (%) (Auto) 23 % (24-48) L Monocytes (%) (Auto) 8 % (0-9) Eosinophils (%) (Auto) 0 % (0-3) Basophils (%) (Auto) 0 % (0-3) Neutrophils # (Auto) 7.2 x10^3uL (1.8-7.7) Lymphocytes # (Auto) 2.4 x10^3/uL (1.0-4.8) Monocytes # (Auto) 0.9 x10^3/uL (0.0-1.1) Eosinophils # (Auto) 0.0 x10^3/uL (0.0-0.7) Basophils # (Auto) 0.0 x10^3/uL (0.0-0.2) Sodium Level 143 mmol/L (136-145) Potassium Level 3.9 mmol/L (3.5-5.1) Chloride Level 108 mmol/L (98-107) H Carbon Dioxide Level 31 mmol/L (21-32) Anion Gap 4 (6-14) L Blood Urea Nitrogen 18 mg/dL (8-26) Creatinine 1.5 mg/dL (0.7-1.3) H Estimated GFR (Cockcroft-Gault) 47.6 BUN/Creatinine Ratio 12 (6-20) Glucose Level 128 mg/dL (70-99) H Calcium Level 8.7 mg/dL (8.5-10.1) Total Bilirubin 0.6 mg/dL (0.2-1.0) Aspartate Amino Transferase (AST) 12 U/L (15-37) L Alanine Aminotransferase (ALT) 38 U/L (16-63) Alkaline Phosphatase 97 U/L (46-116) Total Protein 5.6 g/dL (6.4-8.2) L Albumin 2.7 g/dL (3.4-5.0) L Albumin/Globulin Ratio 0.9 (1.0-1.7) L Drew Level 0.3 mmol/L (0.6-1.2) L Drew Last Dose Date Unk Drew Last Dose Time Unk Glucose (Fingerstick) 111 mg/dL (70-99) H 75 mg/dL (70-99) 113 mg/dL (70-99) H Current Medications: I have reviewed the current psychotropics carefully including drug interactions. Risk benefit ratio favors no change other than as noted in my dictated progress note. Diagnosis: Problems: (1) Bipolar disorder with psychotic features (2) Anxiety disorder (3) Schizoaffective disorder, bipolar type (4) Impulse control disorder KUNAL BEST MD Aug 29, 2019 22:02
[2019-08-30] MEDS: LEVOTHYROXINE 100 MCG TABLET PO SCH (05:46)
[2019-08-30 06:06] VITALS: BP 105/57
--- NOTE | 2019-08-30 06:55 | PDOC ---
Exam Note: Vincent Note: This note is a late entry for 08/28/2019 covers elements not covered in my initial note. Subjective: The patient was seen individually in the evening of 08/28/2019. Per Marty BAIRES, he slept 1-1/4 hours previous night. He has been in the [facility] to reduce sensory stimuli. 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 Oral intake is poor. He takes his meds crushed in pudding. He was bent over walking and fell forward. No injuries noted. Later he was walking quite straight. Previous night he had received Ativan x2, Zyprexa x1 and was probably a little sedated in the morning prior to the fall. Review of Systems: No CV, , pulmonary, eye, ENT system symptoms on review. Reliability poor. Mental Status Exam: Oriented reasonably. Insight and judgment, recent and remote memory, attention and concentration, fund of knowledge is poor consistent with his diagnoses. Laboratory Data: Reviewed. Impression: Major neurocognitive disorder, Alzheimer, vascular with delusion, depression, behavioral disturbance. Anxiety disorder unspecified. Impulse control disorder unspecified. Plan: No change from initial note. The patient appears to be little weaker, more confused. We will monitor this and defer medical management to Dr. Vera/Dr. Muhammad. Assessment: Vital Signs/I&O: Vital Signs Date Time Temp Pulse Resp B/P (MAP) Pulse Ox O2 Delivery O2 Flow Rate FiO2 08/30/19 06:06 97.8 91 18 105/57 (73) 100 08/27/19 16:08 Room Air I & O 08/29/19 08/29/19 08/30/19 15:00 23:00 07:00 Intake Total 720 ml 480 ml Balance 720 ml 480 ml Labs: Laboratory Tests Test 08/29/19 07:34 08/29/19 17:05 08/29/19 19:29 Glucose (Fingerstick) 111 mg/dL (70-99) H 75 mg/dL (70-99) 113 mg/dL (70-99) H Current Medications: I have reviewed the current psychotropics carefully including drug interactions. Risk benefit ratio favors no change other than as noted in my dictated progress note. Diagnosis: Problems: (1) Bipolar disorder with psychotic features (2) Anxiety disorder (3) Schizoaffective disorder, bipolar type (4) Impulse control disorder KUNAL BEST MD 10, 2020 06:55
--- NOTE | 2019-08-30 07:01 | PDOC ---
Exam Note: Vincent Note: The previous note of Luis Carlos Cabrera of 08/28/19 is an error. Please ignore. Please also refer to the separate dictated note~for this date of service dictated separately.~Patient seen individually. Discussed the patient with Nursing staff reviewed the chart.~Reviewed interim history and current funct ioning. Reviewed vital signs,~Labs/ Radiology~and current medications noted below. Continue current treatment with the changes noted in the dictated addendum note Assessment: Vital Signs/I&O: Vital Signs Date Time Temp Pulse Resp B/P (MAP) Pulse Ox O2 Delivery O2 Flow Rate FiO2 08/30/19 06:06 97.8 91 18 105/57 (73) 100 08/27/19 16:08 Room Air I & O 08/29/19 08/29/19 08/30/19 15:00 23:00 07:00 Intake Total 720 ml 480 ml Balance 720 ml 480 ml Labs: Laboratory Tests Test 08/29/19 07:34 08/29/19 17:05 08/29/19 19:29 Glucose (Fingerstick) 111 mg/dL (70-99) H 75 mg/dL (70-99) 113 mg/dL (70-99) H Current Medications: I have reviewed the current psychotropics carefully including drug interactions. Risk benefit ratio favors no change other than as noted in my dictated progress note. Diagnosis: Problems: (1) Anxiety disorder (2) Schizoaffective disorder, chronic condition with acute exacerbation (3) Impulse control disorder KUNAL BEST MD Aug 30, 2019 07:01
--- NOTE | 2019-08-30 07:06 | PDOC ---
Exam Note: Vincent Note: This is the corrected note for 08/28/2019. This note is a late entry for 08/28/2019 covers elements not covered in my initial note. Subjective: The patient was seen individually in the evening of 08/28/2019. Per Marty BAIRES, he slept 5-3/4 hours previous night. He spends much time of the day in his bed, withdrawn, otherwise, pleasant. Last weekend he was complaining of pain, since then it is better. Review of Systems: No CV, , pulmonary, eye, ENT system symptoms on review. He does admit to being tired. Mental Status Exam: Reasonably oriented. Speech coherent. Abstraction fair. Computation impaired. Language function intact. Attention span short. Mood and affect less paranoid than before. Laboratory Data: Reviewed. Impression: Schizoaffective disorder, bipolar type. Anxiety disorder unspecified. Impulse control disorder unspecified. Plan: Continue current psychotropics unchanged. Adjust further as clinically indicated. Clozaril has been increased to 625 mg h.s. He remains on Cogentin, Aricept, lithium carbonate 300 mg daily, Provera 3 mg daily, Haldol p.r.n., Zyprexa p.r.n. Assessment: Vital Signs/I&O: Vital Signs Date Time Temp Pulse Resp B/P (MAP) Pulse Ox O2 Delivery O2 Flow Rate FiO2 08/30/19 06:06 97.8 91 18 105/57 (73) 100 08/27/19 16:08 Room Air I & O 08/29/19 08/29/19 08/30/19 15:00 23:00 07:00 Intake Total 720 ml 480 ml Balance 720 ml 480 ml Labs: Laboratory Tests Test 08/29/19 07:34 08/29/19 17:05 08/29/19 19:29 Glucose (Fingerstick) 111 mg/dL (70-99) H 75 mg/dL (70-99) 113 mg/dL (70-99) H Current Medications: I have reviewed the current psychotropics carefully including drug interactions. Risk benefit ratio favors no change other than as noted in my dictated progress note. Diagnosis: Problems: (1) Bipolar disorder with psychotic features (2) Schizoaffective disorder, bipolar type (3) Anxiety disorder (4) Impulse control disorder KUNAL BEST MD Aug 30, 2019 07:06
--- NOTE | 2019-08-30 07:34 | PDOC ---
Exam Note: Vincent Note: This note is a late entry for 08/29/2019 covers elements not covered in my initial note. Subjective: The patient was seen individually in the evening of 08/29/2019. Per Marty BAIRES, the patient slept 5-3/4 hours previous night. He did not have any behaviors previous night He has been pleasant, somewhat withdrawn into his room. Review of Systems: Positive for tiredness. No CV, , pulmonary, eye, ENT system symptoms on review. Mental Status Exam: Reasonably oriented. Speech coherent. Abstraction fair. Computation impaired. Language function intact. Attention span short. Mood and affect less paranoid. Laboratory Data: Reviewed. Impression: Schizoaffective disorder, bipolar type. Anxiety disorder unspecified. Impulse control disorder unspecified. Plan: No change from initial note. Assessment: Vital Signs/I&O: Vital Signs Date Time Temp Pulse Resp B/P (MAP) Pulse Ox O2 Delivery O2 Flow Rate FiO2 08/30/19 06:06 97.8 91 18 105/57 (73) 100 08/27/19 16:08 Room Air I & O 08/29/19 08/29/19 08/30/19 15:00 23:00 07:00 Intake Total 720 ml 480 ml Balance 720 ml 480 ml Labs: Laboratory Tests Test 08/29/19 07:34 08/29/19 17:05 08/29/19 19:29 08/30/19 07:17 Glucose (Fingerstick) 111 mg/dL (70-99) H 75 mg/dL (70-99) 113 mg/dL (70-99) H 114 mg/dL (70-99) H Current Medications: I have reviewed the current psychotropics carefully including drug interactions. Risk benefit ratio favors no change other than as noted in my dictated progress note. Diagnosis: Problems: (1) Bipolar disorder with psychotic features (2) Anxiety disorder (3) Schizoaffective disorder, bipolar type (4) Impulse control disorder KUNAL BEST MD Aug 30, 2019 07:34
[2019-08-30] MEDS: PANTOPRAZOLE 40 MG TABLET. PO SCH (08:02)
[2019-08-30] MEDS: LITHIUM CARBONATE 300 MG TABLET PO SCH ×2 (08:02→19:48)
[2019-08-30] MEDS: DOCUSATE SODIUM 100 MG CAPSULE PO SCH ×2 (08:02→19:48)
[2019-08-30] MEDS: BENZTROPINE MESYLATE 1 MG TABLET PO SCH ×2 (08:02→19:48)
[2019-08-30] MEDS: glipiZIDE ER 2.5 MG TAB.ER.24 PO SCH (08:02)
[2019-08-30] MEDS: METOPROLOL SUCC 24HR ER 25 MG TAB.ER.24H. PO SCH (08:02)
[2019-08-30 15:37] VITALS: BP 111/74
[2019-08-30] MEDS: DONEPEZIL HCL 10 MG TABLET PO SCH (19:47)
[2019-08-30] MEDS: cloZAPine 25 MG TABLET PO SCH (19:48)
[2019-08-30] MEDS: SIMVASTATIN 20 MG TABLET PO SCH (19:49)
[2019-08-30] MEDS: cloZAPine 100 MG TABLET PO SCH (19:50)
--- NOTE | 2019-08-30 21:58 | PDOC ---
Exam Note: Vincent Note: Please also refer to the separate dictated note~for this date of service dictated separately.~Patient seen individually. Discussed the patient with Nursing staff reviewed the chart.~Reviewed interim history and current functioning. Reviewed vital signs,~Labs/ Radiology~and current medications noted below. Continue current treatment with the changes noted in the dictated addendum note Assessment: Vital Signs/I&O: Vital Signs Date Time Temp Pulse Resp B/P (MAP) Pulse Ox O2 Delivery O2 Flow Rate FiO2 08/30/19 15:37 98.1 96 18 111/74 (86) 97 Room Air I & O 08/29/19 08/29/19 08/30/19 15:00 23:00 07:00 Intake Total 720 ml 480 ml Balance 720 ml 480 ml Labs: Laboratory Tests Test 08/30/19 07:17 08/30/19 17:11 08/30/19 19:36 Glucose (Fingerstick) 114 mg/dL (70-99) H 96 mg/dL (70-99) 157 mg/dL (70-99) H Current Medications: Meds: Current Medications Medications (Trade) Dose Ordered Sig/Sanna Route PRN Reason Start Time Stop Time Status Last Admin Dose Admin Markle Carbonate 150 mg HS PO 08/30/19 21:00 08/30/19 19:48 I have reviewed the current psychotropics carefully including drug interactions. Risk benefit ratio favors no change other than as noted in my dictated progress note. Diagnosis: Problems: (1) Schizoaffective disorder, bipolar type (2) Bipolar disorder with psychotic features (3) Anxiety disorder (4) Impulse control disorder KUNAL BEST MD Aug 30, 2019 21:58
[2019-08-31] MEDS: LEVOTHYROXINE 100 MCG TABLET PO SCH (04:17)
[2019-08-31 05:58] VITALS: BP 106/70
[2019-08-31] MEDS: PANTOPRAZOLE 40 MG TABLET. PO SCH (08:16)
[2019-08-31] MEDS: BENZTROPINE MESYLATE 1 MG TABLET PO SCH ×2 (08:16→20:08)
[2019-08-31] MEDS: DOCUSATE SODIUM 100 MG CAPSULE PO SCH ×2 (08:16→20:08)
[2019-08-31] MEDS: LITHIUM CARBONATE 300 MG TABLET PO SCH ×2 (08:16→20:08)
[2019-08-31] MEDS: METOPROLOL SUCC 24HR ER 25 MG TAB.ER.24H. PO SCH (08:17)
[2019-08-31] MEDS: glipiZIDE ER 2.5 MG TAB.ER.24 PO SCH (08:17)
[2019-08-31] MEDS: CHOLECALCIFEROL (VITAMIN D3) 50,000 UNIT CAPSULE PO SCH (08:19)
[2019-08-31 16:07] VITALS: BP 126/86
[2019-08-31] MEDS: cloZAPine 100 MG TABLET PO SCH (20:07)
[2019-08-31] MEDS: DONEPEZIL HCL 10 MG TABLET PO SCH (20:08)
[2019-08-31] MEDS: cloZAPine 25 MG TABLET PO SCH (20:08)
[2019-08-31] MEDS: SIMVASTATIN 20 MG TABLET PO SCH (20:08)
--- NOTE | 2019-08-31 22:14 | PDOC ---
Exam Note: Vincent Note: Please also refer to the separate dictated note~for this date of service dictated separately.~Patient seen individually. Discussed the patient with Nursing staff reviewed the chart.~Reviewed interim history and current functioning. Reviewed vital signs,~Labs/ Radiology~and current medications noted below. Continue current treatment with the changes noted in the dictated addendum note Assessment: Vital Signs/I&O: Vital Signs Date Time Temp Pulse Resp B/P (MAP) Pulse Ox O2 Delivery O2 Flow Rate FiO2 08/31/19 16:07 98.0 78 17 126/86 (99) 97 08/31/19 05:58 Room Air I & O 08/30/19 08/30/19 08/31/19 15:00 23:00 07:00 Intake Total 720 ml 1180 ml Balance 720 ml 1180 ml Labs: Laboratory Tests Test 08/31/19 08:06 08/31/19 19:14 Glucose (Fingerstick) 106 mg/dL (70-99) H 104 mg/dL (70-99) H Current Medications: Meds: Current Medications Medications (Trade) Dose Ordered Sig/Sanna Route PRN Reason Start Time Stop Time Status Last Admin Dose Admin Vitamin D (Vitamin D3) 50,000 unit WEEKLY PO 08/31/19 09:00 08/31/19 08:19 I have reviewed the current psychotropics carefully including drug interactions. Risk benefit ratio favors no change other than as noted in my dictated progress note. Diagnosis: Problems: (1) Schizoaffective disorder, bipolar type (2) Bipolar disorder with psychotic features (3) Anxiety disorder (4) Impulse control disorder KUNAL BEST MD Aug 31, 2019 22:14
[2019-09-01] MEDS: LEVOTHYROXINE 100 MCG TABLET PO SCH (05:31)
[2019-09-01 05:39] VITALS: BP 112/68
--- NOTE | 2019-09-01 06:50 | PDOC ---
Exam Note: Vincent Note: This note is a late entry for 08/30/2019 covers elements not covered in my initial note. Subjective: The patient was seen individually in the evening of 08/30/2019. Per Renae BAIRES, the patient slept 6-3/4 hours previous night. He has been somewhat withdrawn, spends much time in his room. His lithium level is 0.3 on lithium carbonate 300 mg p.o. a.m. We will increase to 300 mg and 50 mg h.s. Check CBC, CMP, lithium level in 3 days. Rest unchanged for now. Review of Systems: No CV, , pulmonary, eye, ENT system symptoms on review. Mental Status Exam: Reasonably oriented. The patient is less negative as I met with him. He remains somewhat anxious, restless. Speech coherent. Abstraction fair. Computation impaired. Language function intact. Attention span short. Mood and affect withdrawn. Laboratory Data: Reviewed. Impression: Schizoaffective disorder, bipolar type. Anxiety disorder unspecified. Impulse control disorder unspecified. Plan: As noted above with adjustment of lithium. Clozaril was increased to 625 mg h.s. He remains on Cogentin 1 mg b.i.d., Aricept 10 mg a day, Provera 5 mg b.i.d., Haldol p.r.n. Check CBC, CMP, lithium level in 3 days. Rest unchanged for now. Assessment: Vital Signs/I&O: Vital Signs Date Time Temp Pulse Resp B/P (MAP) Pulse Ox O2 Delivery O2 Flow Rate FiO2 09/01/19 05:39 98.4 98 14 112/68 (83) 100 08/31/19 05:58 Room Air I & O 08/31/19 08/31/19 09/01/19 15:00 23:00 07:00 Intake Total 720 ml 450 ml Balance 720 ml 450 ml Labs: Laboratory Tests Test 08/31/19 08:06 08/31/19 19:14 Glucose (Fingerstick) 106 mg/dL (70-99) H 104 mg/dL (70-99) H Current Medications: Meds: Current Medications Medications (Trade) Dose Ordered Sig/Sanna Route PRN Reason Start Time Stop Time Status Last Admin Dose Admin Vitamin D (Vitamin D3) 50,000 unit WEEKLY PO 08/31/19 09:00 08/31/19 08:19 I have reviewed the current psychotropics carefully including drug interactions. Risk benefit ratio favors no change other than as noted in my dictated progress note. Diagnosis: Problems: (1) Schizoaffective disorder, bipolar type (2) Bipolar disorder with psychotic features (3) Anxiety disorder (4) Impulse control disorder KUNAL BEST MD Sep 01, 2019 06:50
--- NOTE | 2019-09-01 07:11 | PDOC ---
Exam Note: Vincent Note: This note is a late entry for 08/31/2019 covers elements not covered in my initial note. Subjective: The patient was seen individually in the evening of 08/31/2019. Per Renae BAIRES, the patient slept 7-1/4 hours previous night. Review of Systems: Positive for tiredness. No CV, , pulmonary, eye, ENT system symptoms on review. Mental Status Exam: Reasonably oriented. Speech coherent. Abstraction fair. Computation impaired. Language function intact. Attention span short. Mood and affect withdrawn, anxious. Laboratory Data: Reviewed. Impression: Schizoaffective disorder, bipolar type. Anxiety disorder unspecified. Impulse control disorder unspecified. Plan: No change from initial note. We will check a lithium level on Monday, 09/01 in the morning. Assessment: Vital Signs/I&O: Vital Signs Date Time Temp Pulse Resp B/P (MAP) Pulse Ox O2 Delivery O2 Flow Rate FiO2 09/01/19 05:39 98.4 98 14 112/68 (83) 100 08/31/19 05:58 Room Air I & O 08/31/19 08/31/19 09/01/19 15:00 23:00 07:00 Intake Total 720 ml 450 ml Balance 720 ml 450 ml Labs: Laboratory Tests Test 08/31/19 08:06 08/31/19 19:14 Glucose (Fingerstick) 106 mg/dL (70-99) H 104 mg/dL (70-99) H Current Medications: Meds: Current Medications Medications (Trade) Dose Ordered Sig/Sanna Route PRN Reason Start Time Stop Time Status Last Admin Dose Admin Vitamin D (Vitamin D3) 50,000 unit WEEKLY PO 08/31/19 09:00 08/31/19 08:19 I have reviewed the current psychotropics carefully including drug interactions. Risk benefit ratio favors no change other than as noted in my dictated progress note. Diagnosis: Problems: (1) Bipolar disorder with psychotic features (2) Schizoaffective disorder, bipolar type (3) Anxiety disorder (4) Impulse control disorder KUNAL BEST MD Sep 01, 2019 07:10
[2019-09-01] MEDS: BENZTROPINE MESYLATE 1 MG TABLET PO SCH ×2 (08:11→19:59)
[2019-09-01] MEDS: DOCUSATE SODIUM 100 MG CAPSULE PO SCH ×2 (08:11→19:58)
[2019-09-01] MEDS: LITHIUM CARBONATE 300 MG TABLET PO SCH ×2 (08:11→19:58)
[2019-09-01] MEDS: METOPROLOL SUCC 24HR ER 25 MG TAB.ER.24H. PO SCH (08:11)
[2019-09-01] MEDS: PANTOPRAZOLE 40 MG TABLET. PO SCH (08:11)
[2019-09-01] MEDS: glipiZIDE ER 2.5 MG TAB.ER.24 PO SCH (08:15)
[2019-09-01 15:41] VITALS: BP 123/80
[2019-09-01] MEDS: cloZAPine 25 MG TABLET PO SCH (19:57)
[2019-09-01] MEDS: DONEPEZIL HCL 10 MG TABLET PO SCH (19:58)
[2019-09-01] MEDS: SIMVASTATIN 20 MG TABLET PO SCH (19:58)
[2019-09-01] MEDS: cloZAPine 100 MG TABLET PO SCH (20:00)
--- NOTE | 2019-09-01 21:59 | PDOC ---
Exam Note: Vincent Note: Please also refer to the separate dictated note~for this date of service dictated separately.~Patient seen individually. Discussed the patient with Nursing staff reviewed the chart.~Reviewed interim history and current functioning. Reviewed vital signs,~Labs/ Radiology~and current medications noted below. Continue current treatment with the changes noted in the dictated addendum note Assessment: Vital Signs/I&O: Vital Signs Date Time Temp Pulse Resp B/P (MAP) Pulse Ox O2 Delivery O2 Flow Rate FiO2 09/01/19 15:41 98.4 94 20 123/80 (94) 100 08/31/19 05:58 Room Air I & O 08/31/19 08/31/19 09/01/19 14:59 22:59 06:59 Intake Total 720 ml 450 ml Balance 720 ml 450 ml Labs: Laboratory Tests Test 09/01/19 08:09 09/01/19 19:23 Glucose (Fingerstick) 127 mg/dL (70-99) H 127 mg/dL (70-99) H Current Medications: I have reviewed the current psychotropics carefully including drug interactions. Risk benefit ratio favors no change other than as noted in my dictated progress note. Diagnosis: Problems: (1) Schizoaffective disorder, bipolar type (2) Bipolar disorder with psychotic features (3) Anxiety disorder (4) Impulse control disorder KUNAL BEST MD Sep 01, 2019 21:59
[2019-09-02] MEDS: LEVOTHYROXINE 100 MCG TABLET PO SCH (05:22)
[2019-09-02 05:38] VITALS: BP 127/83
[2019-09-02 07:38] LABS: BASO % 0 % (0-3); EOS % 0 % (0-3); HEMOGLOBIN 12.4 g/dL (13.0-17.5); LYMPH # 1.5 x10^3/uL (1.0-4.8); LYMPH % 18 % (24-48); MEAN CORPUSCULAR HEMOGLOBIN 29 pg (25-35); MEAN CORPUSCULAR HGB CONC 34 g/dL (31-37); MEAN CORPUSCULAR VOLUME 88 fL (79-100); MONO # 0.7 x10^3/uL (0.0-1.1); MONO % 8 % (0-9); NEUT # 6.1 x10^3uL (1.8-7.7); NEUT % 74 % (31-73); PLATELET COUNT 197 x10^3/uL (140-400); RED BLOOD COUNT 4.22 x10^6/uL (4.30-5.70); RED CELL DISTRIBUTION WIDTH 14.8 % (11.5-14.5); WHITE BLOOD COUNT 8.3 x10^3/uL (4.0-11.0)
[2019-09-02 08:07] LABS: ALBUMIN 2.6 g/dL (3.4-5.0); ALBUMIN/GLOBULIN RATIO 0.9 (1.0-1.7); CALCIUM 8.8 mg/dL (8.5-10.1); CREATININE 1.4 mg/dL (0.7-1.3); GFR 51.5; POTASSIUM 4.1 mmol/L (3.5-5.1); TOTAL BILIRUBIN 0.5 mg/dL (0.2-1.0); TOTAL PROTEIN 5.4 g/dL (6.4-8.2)
[2019-09-02] MEDS: PANTOPRAZOLE 40 MG TABLET. PO SCH (08:13)
[2019-09-02] MEDS: DOCUSATE SODIUM 100 MG CAPSULE PO SCH ×2 (08:13→19:45)
[2019-09-02] MEDS: glipiZIDE ER 2.5 MG TAB.ER.24 PO SCH (08:13)
[2019-09-02] MEDS: BENZTROPINE MESYLATE 1 MG TABLET PO SCH ×2 (08:13→19:45)
[2019-09-02] MEDS: METOPROLOL SUCC 24HR ER 25 MG TAB.ER.24H. PO SCH (08:14)
[2019-09-02] MEDS: LITHIUM CARBONATE 300 MG TABLET PO SCH ×2 (08:14→19:47)
[2019-09-02 16:08] VITALS: BP 134/80
[2019-09-02] MEDS: SIMVASTATIN 20 MG TABLET PO SCH (19:45)
[2019-09-02] MEDS: DONEPEZIL HCL 10 MG TABLET PO SCH (19:46)
[2019-09-02] MEDS: cloZAPine 25 MG TABLET PO SCH (19:46)
[2019-09-02] MEDS: cloZAPine 100 MG TABLET PO SCH (19:46)
--- NOTE | 2019-09-02 21:58 | PDOC ---
Exam Note: Vincent Note: Please also refer to the separate dictated note~for this date of service dictated separately.~Patient seen individually. Discussed the patient with Nursing staff reviewed the chart.~Reviewed interim history and current functioning. Reviewed vital signs,~Labs/ Radiology~and current medications noted below. Continue current treatment with the changes noted in the dictated addendum note Assessment: Vital Signs/I&O: Vital Signs Date Time Temp Pulse Resp B/P (MAP) Pulse Ox O2 Delivery O2 Flow Rate FiO2 09/02/19 16:08 98.8 96 18 134/80 (98) 99 08/31/19 05:58 Room Air I & O 09/01/19 09/01/19 09/02/19 15:00 23:00 07:00 Intake Total 720 ml 540 ml Balance 720 ml 540 ml Labs: Laboratory Tests Test 09/02/19 07:12 09/02/19 08:10 09/02/19 19:18 White Blood Count 8.3 x10^3/uL (4.0-11.0) Red Blood Count 4.22 x10^6/uL (4.30-5.70) L Hemoglobin 12.4 g/dL (13.0-17.5) L Hematocrit 37.0 % (39.0-53.0) L Mean Corpuscular Volume 88 fL (79-100) Mean Corpuscular Hemoglobin 29 pg (25-35) Mean Corpuscular Hemoglobin Concent 34 g/dL (31-37) Red Cell Distribution Width 14.8 % (11.5-14.5) H Platelet Count 197 x10^3/uL (140-400) Neutrophils (%) (Auto) 74 % (31-73) H Lymphocytes (%) (Auto) 18 % (24-48) L Monocytes (%) (Auto) 8 % (0-9) Eosinophils (%) (Auto) 0 % (0-3) Basophils (%) (Auto) 0 % (0-3) Neutrophils # (Auto) 6.1 x10^3uL (1.8-7.7) Lymphocytes # (Auto) 1.5 x10^3/uL (1.0-4.8) Monocytes # (Auto) 0.7 x10^3/uL (0.0-1.1) Eosinophils # (Auto) 0.0 x10^3/uL (0.0-0.7) Basophils # (Auto) 0.0 x10^3/uL (0.0-0.2) Sodium Level 145 mmol/L (136-145) Potassium Level 4.1 mmol/L (3.5-5.1) Chloride Level 112 mmol/L (98-107) H Carbon Dioxide Level 29 mmol/L (21-32) Anion Gap 4 (6-14) L Blood Urea Nitrogen 16 mg/dL (8-26) Creatinine 1.4 mg/dL (0.7-1.3) H Estimated GFR (Cockcroft-Gault) 51.5 BUN/Creatinine Ratio 11 (6-20) Glucose Level 126 mg/dL (70-99) H Calcium Level 8.8 mg/dL (8.5-10.1) Total Bilirubin 0.5 mg/dL (0.2-1.0) Aspartate Amino Transferase (AST) 12 U/L (15-37) L Alanine Aminotransferase (ALT) 34 U/L (16-63) Alkaline Phosphatase 89 U/L (46-116) Total Protein 5.4 g/dL (6.4-8.2) L Albumin 2.6 g/dL (3.4-5.0) L Albumin/Globulin Ratio 0.9 (1.0-1.7) L [place] Level 0.6 mmol/L (0.6-1.2) [place] Last Dose Date 09/01/19 [place] Last Dose Time 2100 Glucose (Fingerstick) 105 mg/dL (70-99) H 114 mg/dL (70-99) H Current Medications: Meds: Current Medications Medications (Trade) Dose Ordered Sig/Sanna Route PRN Reason Start Time Stop Time Status Last Admin Dose Admin Clozapine (Clozaril) 50 mg HS PO 09/02/19 21:00 09/02/19 19:46 I have reviewed the current psychotropics carefully including drug interactions. Risk benefit ratio favors no change other than as noted in my dictated progress note. Diagnosis: Problems: (1) Bipolar disorder with psychotic features (2) Schizoaffective disorder, bipolar type (3) Anxiety disorder (4) Impulse control disorder UKNAL BEST MD Sep 02, 2019 21:58
[2019-09-03 05:00] VITALS: BP 134/84
[2019-09-03] MEDS: LEVOTHYROXINE 100 MCG TABLET PO SCH (06:00)
--- NOTE | 2019-09-03 08:51 | PDOC ---
Exam Note: Vincent Note: This note is a late entry for 09/01/2019 covers elements not covered in my initial note. Subjective: The patient was seen individually in the evening of 09/01/2019. Per Renae BAIRES, the patient has been laughing and a little more appropriate, less paranoid, thankful to staff and wishing staff good night in the end of the evening. We are going to check labs morning of 09/01. Other than that the patient does remain fair amount of time in his room, withdrawn which is where I met with him. Review of Systems: No CV, , pulmonary, eye, ENT system symptoms on review. Mental Status Exam: Reasonably oriented. Speech coherent. Abstraction fair. Computation impaired. Language function intact. Attention span short. Mood and affect withdrawn, less paranoid. Laboratory Data: Reviewed. Impression: Schizoaffective disorder, bipolar type. Anxiety disorder unspecified. Impulse control disorder unspecified. Plan: No change from initial note. We are going to check labs morning of 09/01. Assessment: Vital Signs/I&O: Vital Signs Date Time Temp Pulse Resp B/P (MAP) Pulse Ox O2 Delivery O2 Flow Rate FiO2 09/03/19 08:24 97.3 09/02/19 16:08 96 18 134/80 (98) 99 08/31/19 05:58 Room Air I & O 09/02/19 09/02/19 09/03/19 15:00 23:00 07:00 Intake Total 360 ml 600 ml Balance 360 ml 600 ml Labs: Laboratory Tests Test 09/02/19 19:18 Glucose (Fingerstick) 114 mg/dL (70-99) H Current Medications: Meds: Current Medications Medications (Trade) Dose Ordered Sig/Sanna Route PRN Reason Start Time Stop Time Status Last Admin Dose Admin Clozapine (Clozaril) 50 mg HS PO 09/02/19 21:00 09/02/19 19:46 I have reviewed the current psychotropics carefully including drug interactions. Risk benefit ratio favors no change other than as noted in my dictated progress note. Diagnosis: Problems: (1) Schizoaffective disorder, bipolar type (2) Bipolar disorder with psychotic features (3) Anxiety disorder (4) Impulse control disorder KUNAL BEST MD Sep 03, 2019 08:51
--- NOTE | 2019-09-03 09:09 | PDOC ---
Exam Note: Vincent Note: This note is a late entry for 09/02/2019 covers elements not covered in my initial note. Subjective: The patient was seen individually in the morning of 09/02/2019 with treatment team meeting with Angella (social service staff), [facility] staff, and Yung BAIRES. The patient was agitated in the morning, fighting with staff, wanting thin liquids which had been inadvertently placed in front of him. They were quickly retrieved by the nursing staff before he could drink anything and he was quite upset. I addressed this with him in the evening individually. WBC 8.3, neutrophil count 75%. ANC is unremarkable on Clozaril 625 mg p.o. h.s. Also discussed the patient with Viv BAIRES in the evening. He slept 7-1/4 hours previous night. Review of Systems: No CV, , pulmonary, eye, ENT system symptoms on review. Mental Status Exam: Reasonably oriented. Speech coherent. Abstraction fair. Computation impaired. Language function intact. Attention span short. Mood and affect agitated, anxious. Laboratory Data: Reviewed. Impression: Schizoaffective disorder, bipolar type. Anxiety disorder unspecified. Impulse control disorder unspecified. Plan: The patients absolute neutrophil count is unremarkable. We will increase the Clozaril to 650 mg p.o. h.s. Continue rest of the psychotropics unchanged. Absolute neutrophil count is 6100, lithium level is 0.6. Assessment: Vital Signs/I&O: Vital Signs Date Time Temp Pulse Resp B/P (MAP) Pulse Ox O2 Delivery O2 Flow Rate FiO2 09/03/19 08:24 97.3 09/02/19 16:08 96 18 134/80 (98) 99 08/31/19 05:58 Room Air I & O 09/02/19 09/02/19 09/03/19 15:00 23:00 07:00 Intake Total 360 ml 600 ml Balance 360 ml 600 ml Labs: Laboratory Tests Test 09/02/19 19:18 Glucose (Fingerstick) 114 mg/dL (70-99) H Current Medications: Meds: Current Medications Medications (Trade) Dose Ordered Sig/Sanna Route PRN Reason Start Time Stop Time Status Last Admin Dose Admin Clozapine (Clozaril) 50 mg HS PO 09/02/19 21:00 7/13/20 19:46 I have reviewed the current psychotropics carefully including drug interactions. Risk benefit ratio favors no change other than as noted in my dictated progress note. Diagnosis: Problems: (1) Dehydration (2) Schizoaffective disorder, bipolar type (3) Bipolar disorder with psychotic features (4) Anxiety disorder (5) Impulse control disorder KUNAL BEST MD Sep 03, 2019 09:09
[2019-09-03] MEDS: glipiZIDE ER 2.5 MG TAB.ER.24 PO SCH (09:12)
[2019-09-03] MEDS: PANTOPRAZOLE 40 MG TABLET. PO SCH (09:12)
[2019-09-03] MEDS: BENZTROPINE MESYLATE 1 MG TABLET PO SCH ×2 (09:12→20:33)
[2019-09-03] MEDS: DOCUSATE SODIUM 100 MG CAPSULE PO SCH ×2 (09:12→20:34)
[2019-09-03] MEDS: LITHIUM CARBONATE 300 MG TABLET PO SCH ×2 (09:13→20:34)
[2019-09-03] MEDS: METOPROLOL SUCC 24HR ER 25 MG TAB.ER.24H. PO SCH (09:13)
[2019-09-03 15:18] VITALS: BP 116/79
[2019-09-03] MEDS: SIMVASTATIN 20 MG TABLET PO SCH (20:33)
[2019-09-03] MEDS: cloZAPine 25 MG TABLET PO SCH (20:33)
[2019-09-03] MEDS: DONEPEZIL HCL 10 MG TABLET PO SCH (20:33)
[2019-09-03] MEDS: cloZAPine 100 MG TABLET PO SCH (20:33)
--- NOTE | 2019-09-03 21:57 | PDOC ---
Exam Note: Vincent Note: Please also refer to the separate dictated note~for this date of service dictated separately.~Patient seen individually. Discussed the patient with Nursing staff reviewed the chart.~Reviewed interim history and current functioning. Reviewed vital signs,~Labs/ Radiology~and current medications noted below. Continue current treatment with the changes noted in the dictated addendum note Assessment: Vital Signs/I&O: Vital Signs Date Time Temp Pulse Resp B/P (MAP) Pulse Ox O2 Delivery O2 Flow Rate FiO2 09/03/19 20:42 98.6 96 09/03/19 15:18 110 22 116/79 (91) 08/31/19 05:58 Room Air I & O 09/02/19 09/02/19 09/03/19 15:00 23:00 07:00 Intake Total 360 ml 600 ml Balance 360 ml 600 ml Current Medications: I have reviewed the current psychotropics carefully including drug interactions. Risk benefit ratio favors no change other than as noted in my dictated progress note. Diagnosis: Problems: (1) Bipolar disorder with psychotic features (2) Schizoaffective disorder, bipolar type (3) Anxiety disorder (4) Impulse control disorder KUNAL BEST MD Sep 03, 2019 21:57
[2019-09-04] MEDS: LEVOTHYROXINE 100 MCG TABLET PO SCH (05:47)
[2019-09-04 06:08] VITALS: BP 110/77
--- NOTE | 2019-09-04 07:35 | PDOC ---
Exam Note: Vincent Note: This note is a late entry for 09/03/2019 covers elements not covered in my initial note. Subjective: The patient was seen on telehealth rounds in the evening of 09/03/2019 with Erick RN and Jossy RN. COVID-19 screen has been done on all patients and staff members since one patient has turned up positive for COVID-19 on the unit today. The unit is on lockdown per the [facility] ([facility]Centers for Disease Control (CDC) due to the COVID positive patient on our unit, which was discovered. All patients are back in their rooms and are not using main dining room either to avoid group activities and exposure. Per Viv BAIRES, the patient slept 8 hours previous night. He is somewhat withdrawn. He still gets frustrated with thickened liquids more accepting of it. Review of Systems: No CV, , pulmonary, eye, ENT system symptoms on review. Mental Status Exam: Reasonably oriented. The patient is quite interactive. He has not to be found talking to himself and it appears actual hallucinations auditory are better. He was able to verbalize this. Speech coherent. Abstraction fair. Computation impaired. Language function intact. Attention span short. Mood and affect withdrawn, less paranoid. Laboratory Data: Reviewed. Impression: Schizoaffective disorder, bipolar type. Anxiety disorder unspecified. Impulse control disorder unspecified. Plan: Continue rest of the psychotropics unchanged. Assessment: Vital Signs/I&O: Vital Signs Date Time Temp Pulse Resp B/P (MAP) Pulse Ox O2 Delivery O2 Flow Rate FiO2 09/04/19 06:08 98.0 104 18 110/77 (88) 99 08/31/19 05:58 Room Air I & O 09/03/19 09/03/19 09/04/19 15:00 23:00 07:00 Intake Total 1080 ml 360 ml Balance 1080 ml 360 ml Current Medications: I have reviewed the current psychotropics carefully including drug interactions. Risk benefit ratio favors no change other than as noted in my dictated progress note. Diagnosis: Problems: (1) Schizoaffective disorder, bipolar type (2) Bipolar disorder with psychotic features (3) Anxiety disorder (4) Impulse control disorder KUNAL BEST MD Sep 04, 2019 07:35
[2019-09-04] MEDS: BENZTROPINE MESYLATE 1 MG TABLET PO SCH ×2 (07:47→21:31)
[2019-09-04] MEDS: glipiZIDE ER 2.5 MG TAB.ER.24 PO SCH (07:47)
[2019-09-04] MEDS: LITHIUM CARBONATE 300 MG TABLET PO SCH ×2 (07:47→21:32)
[2019-09-04] MEDS: PANTOPRAZOLE 40 MG TABLET. PO SCH (07:47)
[2019-09-04] MEDS: METOPROLOL SUCC 24HR ER 25 MG TAB.ER.24H. PO SCH (07:48)
[2019-09-04] MEDS: DOCUSATE SODIUM 100 MG CAPSULE PO SCH ×2 (07:48→21:32)
--- NOTE | 2019-09-04 11:35 | TX PLAN ---
Interdisciplinary Tx Plan Admission Information Aug 09, 2019 at 22:33 Legal Status (on Admission): Voluntary DPOA/Guardian Name: Elizabeth Alexandra (Public Used Car Manager) Contact Other Contact Name: Grand Mullen Other Contact Verified Code Status: Full Code Allergies: Coded Allergies: No Known Drug Allergies (Unverified , 01/09/19) Diagnoses Primary Diagnosis: Schizoaffective D/O, Bipolar type; anxiety unspecified; impulse control d/o Reasons for Admission: Depressed, Angry, Anxiety/Panic, Suicidal ideation, Poor impulse control Problem in Patient's Words: N/A Additional Admission Comments: According to the intake, pt is refusing medications, refusing meals because he wants to , increase in agitation and SI. Problems Active Problems: Non-compliant with medications Refusal of meds Somewhat demanding Swallow concerns Inactive Problems: Appropriate during Covoid isolation Pt Strengths/Limitations Ability for [place]: Poor Cognitive Functioning/Ability: Fair Communication Skills/Ability: Fair Financial Resources: Fair Insight/Judgement: Poor Intellectual Ability: Fair Physical Health: Poor Social Skills: Fair Stability in Family: Poor Stability in School/Work: Poor Verbal Skills: Fair Discharge Criteria Discharge Criteria: Able meet basic life need, Adequate arrangements @DC, Improved behavior, Improved mood/thought Preliminary Discharge Plan Preliminary DC Plan: Current Living Arrange., Outpatient Followup Special Precautions Special Precautions: Swallowing/Choking Fall Risk: Low Initial D/C Plan Pt will plan to return to [facility] in [place] Identified Discharge Needs: Continued psychiatric services Safety Plan Currently Utilized Resources Currently Utilized Resources/P: Continued PCP services Does have a psychiatrist Identified Problems/Hx/Goals Objectives/Short-Term Goals Short Term Goals: Medication Stabilization, Monitor Med Effects, No Suicidal/Malachi. ideation, Promote Coping Skill Short Term Goals in Patient's: N/A Interventions/Frequency Staff Interventions/Frequency&: Psychiatrist to assess pt at least 3x per week. Social Work to assess pt at least 2x per week. Nursing to assess bx, medications and complete 15 minute checks daily. Encourage group particpation in activities or 1:1 engagement dependent on Activity Dept assessment and goals. 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 Did not work afterwards due to his diagnosis. Education: [facility] Follow-up Primary Care Physician Psychiatrist Treatment Plan Explained Patient/Fondant Puff Maker had this treatment plan explained to him/her as indicated by the signature below and has been given the opportunity to ask questions and make suggestions: Date: Patient/Fondant Puff Maker Signature: Status Update Update Pt is eating 100% of meals and sleeping on average 7 hours per night. Pt continues to be withdrawn to his room and needs encouragement to participate in groups. Pt is pleasant with medications and presents his greatest barrier surrounding his swallow precautions. Pt is to be on honey thickened liquids and will often be found with thin liquids. Pt does require redirection for this which can make him agitated. Pt is walking with a RW and is mostly independent with all ADL"s. Pt was planned to discharge this week; however, pt will not be able to as the unit will be under quarantine for the next couple of weeks. ELOS for discharge is the beginning of the week after next. JUAN MANUEL COMER Sep 04, 2019 11:35
[2019-09-04 15:32] VITALS: BP 119/77
[2019-09-04] MEDS: DONEPEZIL HCL 10 MG TABLET PO SCH (21:32)
[2019-09-04] MEDS: cloZAPine 100 MG TABLET PO SCH (21:32)
[2019-09-04] MEDS: cloZAPine 25 MG TABLET PO SCH (21:33)
[2019-09-04] MEDS: SIMVASTATIN 20 MG TABLET PO SCH (21:33)
--- NOTE | 2019-09-04 22:03 | PDOC ---
Exam Note: Vincent Note: Please also refer to the separate dictated note~for this date of service dictated separately.~Patient seen individually. Discussed the patient with Nursing staff reviewed the chart.~Reviewed interim history and current functioning. Reviewed vital signs,~Labs/ Radiology~and current medications noted below. Continue current treatment with the changes noted in the dictated addendum note Assessment: Vital Signs/I&O: Vital Signs Date Time Temp Pulse Resp B/P (MAP) Pulse Ox O2 Delivery O2 Flow Rate FiO2 09/04/19 19:02 97.9 09/04/19 15:32 99 18 119/77 (91) 98 08/31/19 05:58 Room Air I & O 09/03/19 09/03/19 09/04/19 15:00 23:00 07:00 Intake Total 1080 ml 360 ml Balance 1080 ml 360 ml Current Medications: I have reviewed the current psychotropics carefully including drug interactions. Risk benefit ratio favors no change other than as noted in my dictated progress note. Diagnosis: Problems: (1) Schizoaffective disorder, bipolar type (2) Bipolar disorder with psychotic features (3) Anxiety disorder (4) Impulse control disorder KUNAL BEST MD Sep 04, 2019 22:03
[2019-09-05] MEDS: LEVOTHYROXINE 100 MCG TABLET PO SCH (05:46)
[2019-09-05 06:20] VITALS: BP 137/83
--- NOTE | 2019-09-05 07:00 | PDOC ---
Exam Note: Vincent Note: This note is a late entry for 09/04/2019 covers elements not covered in my initial note. Subjective: The patient was seen on telehealth rounds in the evening of 09/04/2019 with nursing staff. The unit is on lockdown due to the COVID positive patient on our unit, which was discovered. Each patient is in their room, not able to come out to the dining room or to interact with others according to the recommendation by the [facility]. Per Viv BAIRES, the patient slept 7-1/4 hours previous night. He has had a better mood, somewhat withdrawn, still very upset about thickened liquids and wanting regular liquids. I addressed this with him at some length in the evening on telehealth rounds. His COVID-19 test is pending. Review of Systems: No CV, , pulmonary, eye, ENT system symptoms on review. Mental Status Exam: Reasonably oriented. Speech coherent. Abstraction fair. Computation impaired. Language function intact. Attention span short. Mood and affect better, somewhat withdrawn. No clear hallucinations, suicidal or homicidal ideation. Laboratory Data: Reviewed. Impression: Schizoaffective disorder, bipolar type. Anxiety disorder unspecified. Impulse control disorder unspecified. Plan: Continue rest of the psychotropics unchanged. We have increased the Clozaril to 650 mg p.o. h.s. We will continue at this dosage. Repeat lithium level. Adjust further as clinically indicated. Assessment: Vital Signs/I&O: Vital Signs Date Time Temp Pulse Resp B/P (MAP) Pulse Ox O2 Delivery O2 Flow Rate FiO2 09/05/19 06:20 98.0 114 20 137/83 (101) 97 08/31/19 05:58 Room Air I & O 09/04/19 09/04/19 09/05/19 15:00 23:00 07:00 Intake Total 720 ml 360 ml 360 ml Balance 720 ml 360 ml 360 ml Current Medications: I have reviewed the current psychotropics carefully including drug interactions. Risk benefit ratio favors no change other than as noted in my dictated progress note. Diagnosis: Problems: (1) Schizoaffective disorder, bipolar type (2) Bipolar disorder with psychotic features (3) Anxiety disorder (4) Impulse control disorder KUNAL BEST MD Sep 05, 2019 07:00
[2019-09-05] MEDS: PANTOPRAZOLE 40 MG TABLET. PO SCH (09:05)
[2019-09-05] MEDS: METOPROLOL SUCC 24HR ER 25 MG TAB.ER.24H. PO SCH (09:06)
[2019-09-05] MEDS: LITHIUM CARBONATE 300 MG TABLET PO SCH ×2 (09:06→20:29)
[2019-09-05] MEDS: DOCUSATE SODIUM 100 MG CAPSULE PO SCH ×2 (09:06→20:27)
[2019-09-05] MEDS: BENZTROPINE MESYLATE 1 MG TABLET PO SCH ×2 (09:06→20:29)
[2019-09-05] MEDS: glipiZIDE ER 2.5 MG TAB.ER.24 PO SCH (09:08)
[2019-09-05 16:35] VITALS: BP 106/71
[2019-09-05] MEDS: cloZAPine 25 MG TABLET PO SCH (20:27)
[2019-09-05] MEDS: cloZAPine 100 MG TABLET PO SCH (20:28)
[2019-09-05] MEDS: SIMVASTATIN 20 MG TABLET PO SCH (20:29)
[2019-09-05] MEDS: DONEPEZIL HCL 10 MG TABLET PO SCH (20:29)
--- NOTE | 2019-09-05 22:04 | PDOC ---
Exam Note: Vincent Note: Please also refer to the separate dictated note~for this date of service dictated separately.~Patient seen individually. Discussed the patient with Nursing staff reviewed the chart.~Reviewed interim history and current functioning. Reviewed vital signs,~Labs/ Radiology~and current medications noted below. Continue current treatment with the changes noted in the dictated addendum note Assessment: Vital Signs/I&O: Vital Signs Date Time Temp Pulse Resp B/P (MAP) Pulse Ox O2 Delivery O2 Flow Rate FiO2 09/05/19 18:22 99.1 09/05/19 16:35 102 18 106/71 (83) 99 Room Air I & O 09/04/19 09/04/19 09/05/19 15:00 23:00 07:00 Intake Total 720 ml 360 ml 360 ml Balance 720 ml 360 ml 360 ml Current Medications: I have reviewed the current psychotropics carefully including drug interactions. Risk benefit ratio favors no change other than as noted in my dictated progress note. Diagnosis: Problems: (1) Schizoaffective disorder, bipolar type (2) Bipolar disorder with psychotic features (3) Anxiety disorder (4) Impulse control disorder KUNAL BEST MD Sep 05, 2019 22:04
--- NOTE | 2019-09-05 23:26 | PDOC ---
Exam Note: Vincent Note: This note for 09/05/2019 covers elements not covered in my initial note. Subjective: The patient was seen on telehealth rounds in the evening of 09/05/2019 with nursing staff. Per Yung BAIRES, the patient slept 5-3/4 hours previous night. He is resistive to taking his medications. His COVID-19 swab is pending. The patient spends much time in his room, again wanting thin liquids and has difficulty understanding the reason for his thickened liquids. Review of Systems: Positive for some tiredness. No CV, , pulmonary, eye, ENT system symptoms on review. Mental Status Exam: Reasonably oriented. Speech has some latency, coherent. Abstraction fair. Computation impaired. Language function intact. Attention span short. Mood and affect withdrawn. Laboratory Data: Reviewed. Impression: Schizoaffective disorder, bipolar type. Anxiety disorder unspecified. Impulse control disorder unspecified. Plan: No change from initial note. Assessment: Vital Signs/I&O: Vital Signs Date Time Temp Pulse Resp B/P (MAP) Pulse Ox O2 Delivery O2 Flow Rate FiO2 09/05/19 23:20 98.3 99 Room Air 09/05/19 16:35 102 18 106/71 (83) I & O 09/04/19 09/04/19 09/05/19 15:00 23:00 07:00 Intake Total 720 ml 360 ml 360 ml Balance 720 ml 360 ml 360 ml Current Medications: I have reviewed the current psychotropics carefully including drug interactions. Risk benefit ratio favors no change other than as noted in my dictated progress note. Diagnosis: Problems: (1) Bipolar disorder with psychotic features (2) Schizoaffective disorder, bipolar type (3) Anxiety disorder (4) Impulse control disorder KUNAL BEST MD Sep 05, 2019 23:26
[2019-09-06] MEDS: LEVOTHYROXINE 100 MCG TABLET PO SCH (06:18)
[2019-09-06 06:21] VITALS: BP 132/86
[2019-09-06] MEDS: LITHIUM CARBONATE 300 MG TABLET PO SCH ×2 (08:15→19:26)
[2019-09-06] MEDS: PANTOPRAZOLE 40 MG TABLET. PO SCH (08:15)
[2019-09-06] MEDS: BENZTROPINE MESYLATE 1 MG TABLET PO SCH ×2 (08:16→19:29)
[2019-09-06] MEDS: DOCUSATE SODIUM 100 MG CAPSULE PO SCH ×2 (08:16→19:29)
[2019-09-06] MEDS: METOPROLOL SUCC 24HR ER 25 MG TAB.ER.24H. PO SCH (08:16)
[2019-09-06] MEDS: glipiZIDE ER 2.5 MG TAB.ER.24 PO SCH (08:16)
[2019-09-06 15:15] VITALS: BP 121/84
[2019-09-06] MEDS: SIMVASTATIN 20 MG TABLET PO SCH (19:25)
[2019-09-06] MEDS: cloZAPine 100 MG TABLET PO SCH (19:27)
[2019-09-06] MEDS: cloZAPine 25 MG TABLET PO SCH (19:28)
[2019-09-06] MEDS: DONEPEZIL HCL 10 MG TABLET PO SCH (19:28)
--- NOTE | 2019-09-06 21:56 | PDOC ---
Exam Note: Vincent Note: Please also refer to the separate dictated note~for this date of service dictated separately.~Patient seen individually. Discussed the patient with Nursing staff reviewed the chart.~Reviewed interim history and current functioning. Reviewed vital signs,~Labs/ Radiology~and current medications noted below. Continue current treatment with the changes noted in the dictated addendum note Assessment: Vital Signs/I&O: Vital Signs Date Time Temp Pulse Resp B/P (MAP) Pulse Ox O2 Delivery O2 Flow Rate FiO2 09/06/19 20:00 98.2 99 09/06/19 15:15 108 22 121/84 (96) Room Air I & O 09/05/19 09/05/19 09/06/19 15:00 23:00 07:00 Intake Total 480 ml 480 ml 0 ml Balance 480 ml 480 ml 0 ml Current Medications: I have reviewed the current psychotropics carefully including drug interactions. Risk benefit ratio favors no change other than as noted in my dictated progress note. Diagnosis: Problems: (1) Bipolar disorder with psychotic features (2) Schizoaffective disorder, bipolar type (3) Anxiety disorder (4) Impulse control disorder KUNAL BEST MD Sep 06, 2019 21:56
[2019-09-07] MEDS: LEVOTHYROXINE 100 MCG TABLET PO SCH (05:30)
[2019-09-07 06:29] VITALS: BP 115/74
[2019-09-07 07:58] VITALS: BP 115/74
[2019-09-07] MEDS: DOCUSATE SODIUM 100 MG CAPSULE PO SCH ×2 (08:23→20:03)
[2019-09-07] MEDS: CHOLECALCIFEROL (VITAMIN D3) 50,000 UNIT CAPSULE PO SCH (08:23)
[2019-09-07] MEDS: METOPROLOL SUCC 24HR ER 25 MG TAB.ER.24H. PO SCH (08:23)
[2019-09-07] MEDS: PANTOPRAZOLE 40 MG TABLET. PO SCH (08:23)
[2019-09-07] MEDS: glipiZIDE ER 2.5 MG TAB.ER.24 PO SCH (08:24)
[2019-09-07] MEDS: BENZTROPINE MESYLATE 1 MG TABLET PO SCH ×2 (08:24→20:02)
[2019-09-07] MEDS: LITHIUM CARBONATE 300 MG TABLET PO SCH ×2 (08:24→20:02)
[2019-09-07 16:13] VITALS: BP 120/72
[2019-09-07] MEDS: cloZAPine 100 MG TABLET PO SCH (20:01)
[2019-09-07] MEDS: DONEPEZIL HCL 10 MG TABLET PO SCH (20:02)
[2019-09-07] MEDS: cloZAPine 25 MG TABLET PO SCH (20:02)
[2019-09-07] MEDS: SIMVASTATIN 20 MG TABLET PO SCH (20:02)
--- NOTE | 2019-09-07 21:53 | PDOC ---
Exam Note: Vincent Note: Please also refer to the separate dictated note~for this date of service dictated separately.~Patient seen individually. Discussed the patient with Nursing staff reviewed the chart.~Reviewed interim history and current functioning. Reviewed vital signs,~Labs/ Radiology~and current medications noted below. Continue current treatment with the changes noted in the dictated addendum note Assessment: Vital Signs/I&O: Vital Signs Date Time Temp Pulse Resp B/P (MAP) Pulse Ox O2 Delivery O2 Flow Rate FiO2 09/07/19 20:33 98.4 97 09/07/19 16:13 101 18 120/72 (88) Room Air I & O 09/06/19 09/06/19 09/07/19 15:00 23:00 07:00 Intake Total 660 ml 600 ml Balance 660 ml 600 ml Labs: Laboratory Tests Test 09/07/19 06:18 [place] Level 0.7 mmol/L (0.6-1.2) [place] Last Dose Date 09/06/19 [place] Last Dose Time 2100 Current Medications: I have reviewed the current psychotropics carefully including drug interactions. Risk benefit ratio favors no change other than as noted in my dictated progress note. Diagnosis: Problems: (1) Schizoaffective disorder, bipolar type (2) Anxiety disorder (3) Impulse control disorder (4) Bipolar disorder with psychotic features KUNAL BEST MD Sep 07, 2019 21:53
[2019-09-08] MEDS: LEVOTHYROXINE 100 MCG TABLET PO SCH (05:36)
[2019-09-08 06:27] VITALS: BP 111/78
--- NOTE | 2019-09-08 06:46 | PDOC ---
Exam Note: Vincent Note: This note is a late entry for 09/06/2019 covers elements not covered in my initial note. Subjective: The patient was seen on telehealth rounds in the evening of 09/06/2019 with Yung BAIRES taking the camera around. Per Yung BAIRES, the patient slept 7-1/4 hours previous night. He is somewhat withdrawn, wanting barbiturates and he was fixated on this as I met with him on telehealth rounds. He feels little fixed to all his problems. He refused the calendar that was provided to all the patients in their rooms to help with orientation. Review of Systems: Positive for some tiredness. No CV, , pulmonary, eye system symptoms on review. Mental Status Exam: Reasonably oriented. Speech coherent. Abstraction fair. Computation impaired. Language function intact. Attention span short. Mood and affect somewhat withdrawn. Laboratory Data: Reviewed. Impression: Schizoaffective disorder, bipolar type. Anxiety disorder unspecified. Impulse control disorder unspecified. Plan: No change from initial note. We will check lithium level morning of 09/06. Assessment: Vital Signs/I&O: Vital Signs Date Time Temp Pulse Resp B/P (MAP) Pulse Ox O2 Delivery O2 Flow Rate FiO2 09/08/19 06:27 98.7 120 16 111/78 (89) 94 09/07/19 16:13 Room Air I & O 09/07/19 09/07/19 09/08/19 15:00 23:00 07:00 Intake Total 860 ml 220 ml Balance 860 ml 220 ml Current Medications: I have reviewed the current psychotropics carefully including drug interactions. Risk benefit ratio favors no change other than as noted in my dictated progress note. Diagnosis: Problems: (1) Schizoaffective disorder, bipolar type (2) Bipolar disorder with psychotic features (3) Anxiety disorder (4) Impulse control disorder KUNAL BEST MD Sep 08, 2019 06:46
--- NOTE | 2019-09-08 06:57 | PDOC ---
Exam Note: Vincent Note: This note is a late entry for 09/07/2019 covers elements not covered in my initial note. Subjective: The patient was seen on telehealth rounds in the evening of 09/07/2019 with Genia BAIRES taking the camera around. Per Ge BAIRES, the patient, remains somewhat withdrawn but denies overt hallucinations, suicidal or homicidal ideation. Review of Systems: No CV, , pulmonary, eye system symptoms on review. Mental Status Exam: He is fairly quite withdrawn, again fixated wanting barbiturates. Speech is coherent. Abstraction fair. Computation impaired. Language function intact. Attention span short. Mood and affect withdrawn. Laboratory Data: Reviewed. Impression: Schizoaffective disorder, bipolar type. Anxiety disorder unspecified. Impulse control disorder unspecified. Plan: [place] level is 0.7 therapeutic. Continue Clozaril. Rest of the psychotropics unchanged. Assessment: Vital Signs/I&O: Vital Signs Date Time Temp Pulse Resp B/P (MAP) Pulse Ox O2 Delivery O2 Flow Rate FiO2 09/08/19 06:27 98.7 120 16 111/78 (89) 94 09/07/19 16:13 Room Air I & O 09/07/19 09/07/19 09/08/19 14:59 22:59 06:59 Intake Total 860 ml 220 ml Balance 860 ml 220 ml Current Medications: I have reviewed the current psychotropics carefully including drug interactions. Risk benefit ratio favors no change other than as noted in my dictated progress note. Diagnosis: Problems: (1) Bipolar disorder with psychotic features (2) Schizoaffective disorder, bipolar type (3) Anxiety disorder (4) Impulse control disorder KUNAL BEST MD Sep 08, 2019 06:57
[2019-09-08] MEDS: PANTOPRAZOLE 40 MG TABLET. PO SCH (08:20)
[2019-09-08] MEDS: METOPROLOL SUCC 24HR ER 25 MG TAB.ER.24H. PO SCH (08:20)
[2019-09-08] MEDS: BENZTROPINE MESYLATE 1 MG TABLET PO SCH ×2 (08:20→19:49)
[2019-09-08] MEDS: glipiZIDE ER 2.5 MG TAB.ER.24 PO SCH (08:21)
[2019-09-08] MEDS: LITHIUM CARBONATE 300 MG TABLET PO SCH ×2 (08:21→19:50)
[2019-09-08] MEDS: DOCUSATE SODIUM 100 MG CAPSULE PO SCH ×2 (08:21→19:49)
[2019-09-08] MEDS ORDERED: CYANOCOBALAMIN (VITAMIN B-12) 1,000 MCG/ML VIAL. IM SCH (09:00)
[2019-09-08 16:26] VITALS: BP 122/78
[2019-09-08] MEDS: cloZAPine 100 MG TABLET PO SCH (19:49)
[2019-09-08] MEDS: DONEPEZIL HCL 10 MG TABLET PO SCH (19:49)
[2019-09-08] MEDS: SIMVASTATIN 20 MG TABLET PO SCH (19:49)
[2019-09-08] MEDS: cloZAPine 25 MG TABLET PO SCH (19:50)
--- NOTE | 2019-09-08 21:53 | PDOC ---
Exam Note: Vincent Note: Please also refer to the separate dictated note~for this date of service dictated separately.~Patient seen individually. Discussed the patient with Nursing staff reviewed the chart.~Reviewed interim history and current functioning. Reviewed vital signs,~Labs/ Radiology~and current medications noted below. Continue current treatment with the changes noted in the dictated addendum note Assessment: Vital Signs/I&O: Vital Signs Date Time Temp Pulse Resp B/P (MAP) Pulse Ox O2 Delivery O2 Flow Rate FiO2 09/08/19 21:35 98.7 98 09/08/19 16:26 98 18 122/78 (93) 09/07/19 16:13 Room Air I & O 09/07/19 09/07/19 09/08/19 15:00 23:00 07:00 Intake Total 860 ml 220 ml Balance 860 ml 220 ml Current Medications: Meds: Current Medications Medications (Trade) Dose Ordered Sig/Sanna Route PRN Reason Start Time Stop Time Status Last Admin Dose Admin Cyanocobalamin (Vitamin B-12) 1,000 mcg QMONTH IM 09/08/19 09:00 09/08/19 08:21 I have reviewed the current psychotropics carefully including drug interactions. Risk benefit ratio favors no change other than as noted in my dictated progress note. Diagnosis: Problems: (1) Schizoaffective disorder, bipolar type (2) Bipolar disorder with psychotic features (3) Anxiety disorder (4) Impulse control disorder KUNAL BEST MD Sep 08, 2019 21:53
--- NOTE | 2019-09-08 23:01 | PDOC ---
Exam Note: Vincent Note: This note is for 09/08/2019 covers elements not covered in my initial note. Subjective: The patient was seen on telehealth rounds in the evening of 09/08/2019 with Genia BAIRES with the camera around. Per Genia BAIRES, the patient slept 7-1/2 hours previous night. I met with him audiovisually in his room. He has been little more disorganized, confused. When questioned states I cant cope. He then requested barbiturates as he does every day because he feels thats the only thing that will cure him. We are going to check labs in the morning but last lithium level was 0.7. Review of Systems: No CV, , pulmonary, eye system symptoms on review. Mental Status Exam: Oriented reasonably. Speech is coherent. Abstraction fair. Computation impaired. Language function intact. Attention span short. Mood and affect withdrawn. Laboratory Data: Reviewed. Impression: Schizoaffective disorder, bipolar type. Anxiety disorder unspecified. Impulse control disorder unspecified. Plan: Continue rest of the psychotropics unchanged. Assessment: Vital Signs/I&O: Vital Signs Date Time Temp Pulse Resp B/P (MAP) Pulse Ox O2 Delivery O2 Flow Rate FiO2 09/08/19 21:35 98.7 98 09/08/19 16:26 98 18 122/78 (93) 09/07/19 16:13 Room Air I & O 09/07/19 09/07/19 09/08/19 15:00 23:00 07:00 Intake Total 860 ml 220 ml Balance 860 ml 220 ml Current Medications: Meds: Current Medications Medications (Trade) Dose Ordered Sig/Sanna Route PRN Reason Start Time Stop Time Status Last Admin Dose Admin Cyanocobalamin (Vitamin B-12) 1,000 mcg QMONTH IM 09/08/19 09:00 09/08/19 08:21 I have reviewed the current psychotropics carefully including drug interactions. Risk benefit ratio favors no change other than as noted in my dictated progress note. Diagnosis: Problems: (1) Schizoaffective disorder, bipolar type (2) Bipolar disorder with psychotic features (3) Anxiety disorder (4) Impulse control disorder KUNAL BEST MD Sep 08, 2019 23:01
[2019-09-09] MEDS: LEVOTHYROXINE 100 MCG TABLET PO SCH (05:13)
[2019-09-09 05:47] VITALS: BP 137/88
[2019-09-09 08:09] LABS: BASO % 0 % (0-3); EOS % 0 % (0-3); HEMATOCRIT 38.5 % (39.0-53.0); HEMOGLOBIN 12.7 g/dL (13.0-17.5); LYMPH % 26 % (24-48); MEAN CORPUSCULAR HEMOGLOBIN 29 pg (25-35); MEAN CORPUSCULAR HGB CONC 33 g/dL (31-37); MEAN CORPUSCULAR VOLUME 88 fL (79-100); MONO # 0.6 x10^3/uL (0.0-1.1); MONO % 8 % (0-9); NEUT # 5.2 x10^3uL (1.8-7.7); NEUT % 67 % (31-73); PLATELET COUNT 160 x10^3/uL (140-400); RED BLOOD COUNT 4.38 x10^6/uL (4.30-5.70); RED CELL DISTRIBUTION WIDTH 14.6 % (11.5-14.5); WHITE BLOOD COUNT 7.9 x10^3/uL (4.0-11.0)
[2019-09-09] MEDS: PANTOPRAZOLE 40 MG TABLET. PO SCH (08:22)
[2019-09-09] MEDS: LITHIUM CARBONATE 300 MG TABLET PO SCH ×2 (08:22→19:32)
[2019-09-09] MEDS: BENZTROPINE MESYLATE 1 MG TABLET PO SCH ×2 (08:22→19:33)
[2019-09-09] MEDS: DOCUSATE SODIUM 100 MG CAPSULE PO SCH ×2 (08:23→19:33)
[2019-09-09] MEDS: glipiZIDE ER 2.5 MG TAB.ER.24 PO SCH (08:24)
[2019-09-09] MEDS: METOPROLOL SUCC 24HR ER 25 MG TAB.ER.24H. PO SCH (08:24)
[2019-09-09 08:37] LABS: ALBUMIN 2.7 g/dL (3.4-5.0); ALBUMIN/GLOBULIN RATIO 0.9 (1.0-1.7); CALCIUM 8.8 mg/dL (8.5-10.1); CREATININE 1.2 mg/dL (0.7-1.3); GFR 61.6; POTASSIUM 4.1 mmol/L (3.5-5.1); TOTAL BILIRUBIN 0.6 mg/dL (0.2-1.0); TOTAL PROTEIN 5.6 g/dL (6.4-8.2)
--- NOTE | 2019-09-09 14:13 | TX PLAN ---
Interdisciplinary Tx Plan Admission Information Aug 09, 2019 at 22:33 Legal Status (on Admission): Voluntary DPOA/Guardian Name: Elizabeth Alexandra (Public Feed Manager) Contact Other Contact Name: Grand Mullen Other Contact Verified Code Status: Full Code Allergies: Coded Allergies: No Known Drug Allergies (Unverified , 01/09/19) Diagnoses Primary Diagnosis: Schizoaffective D/O, Bipolar type; anxiety unspecified; impulse control d/o Reasons for Admission: Depressed, Angry, Anxiety/Panic, Suicidal ideation, Poor impulse control Problem in Patient's Words: N/A Additional Admission Comments: According to the intake, pt is refusing medications, refusing meals because he wants to , increase in agitation and SI. Problems Active Problems: Non-compliant with medications Refusal of meds Somewhat demanding Swallow concerns Inactive Problems: Appropriate during Covoid isolation Pt Strengths/Limitations Ability for [place]: Poor Cognitive Functioning/Ability: Fair Communication Skills/Ability: Fair Financial Resources: Fair Insight/Judgement: Poor Intellectual Ability: Fair Physical Health: Poor Social Skills: Fair Stability in Family: Poor Stability in School/Work: Poor Verbal Skills: Fair Discharge Criteria Discharge Criteria: Able meet basic life need, Adequate arrangements @DC, Improved behavior, Improved mood/thought Preliminary Discharge Plan Preliminary DC Plan: Current Living Arrange., Outpatient Followup Special Precautions Special Precautions: Swallowing/Choking Fall Risk: Low Initial D/C Plan Pt will plan to return to [facility] in [place] Identified Discharge Needs: Continued psychiatric services Safety Plan Currently Utilized Resources Currently Utilized Resources/P: Continued PCP services Does have a psychiatrist Identified Problems/Hx/Goals Objectives/Short-Term Goals Short Term Goals: Medication Stabilization, Monitor Med Effects, No Suicidal/Malachi. ideation, Promote Coping Skill Short Term Goals in Patient's: N/A Interventions/Frequency Staff Interventions/Frequency&: Psychiatrist to assess pt at least 3x per week. Social Work to assess pt at least 2x per week. Nursing to assess bx, medications and complete 15 minute checks daily. Encourage group particpation in activities or 1:1 engagement dependent on Activity Dept assessment and goals. 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 Did not work afterwards due to his diagnosis. Education: [facility] Follow-up Primary Care Physician Psychiatrist Treatment Plan Explained Patient/Mailer Apprentice had this treatment plan explained to him/her as indicated by the signature below and has been given the opportunity to ask questions and make suggestions: Date: Patient/Mailer Apprentice Signature: Status Update Update Pt is eating 100% of meals and sleeping on average 7.5 hours. Pt is withdrawn to his room and maintains a flat affect; however, pleasant with staff and compliant with cares and medications. Pt will need a video swallow upon discharge, in which SW will pass on to pt facility. Pt was swabbed for COVOID, which resulted in a negative test. Per Grand Mullen's request, pt will need 2 negative swabs within a 48 hour time frame. SW will plan to coordinate pt discharge with his facility and Public Feed Manager during the week of September 05 as the facility will be released off quarantine during that time. JUAN MANUEL COMER Sep 09, 2019 14:13
[2019-09-09 16:23] VITALS: BP 131/82
[2019-09-09] MEDS: SIMVASTATIN 20 MG TABLET PO SCH (19:33)
[2019-09-09] MEDS: DONEPEZIL HCL 10 MG TABLET PO SCH (19:33)
[2019-09-09] MEDS: cloZAPine 25 MG TABLET PO SCH (19:33)
[2019-09-09] MEDS: cloZAPine 100 MG TABLET PO SCH (19:33)
--- NOTE | 2019-09-09 22:06 | PDOC ---
Exam Note: Vincent Note: Please also refer to the separate dictated note~for this date of service dictated separately.~Patient seen individually. Discussed the patient with Nursing staff reviewed the chart.~Reviewed interim history and current functioning. Reviewed vital signs,~Labs/ Radiology~and current medications noted below. Continue current treatment with the changes noted in the dictated addendum note Assessment: Vital Signs/I&O: Vital Signs Date Time Temp Pulse Resp B/P (MAP) Pulse Ox O2 Delivery O2 Flow Rate FiO2 09/09/19 20:59 98.3 100 09/09/19 16:23 100 20 131/82 (98) Room Air I & O 09/08/19 09/08/19 09/09/19 15:00 23:00 07:00 Intake Total 840 ml 1200 ml Balance 840 ml 1200 ml Labs: Laboratory Tests Test 09/09/19 07:07 White Blood Count 7.9 x10^3/uL (4.0-11.0) Red Blood Count 4.38 x10^6/uL (4.30-5.70) Hemoglobin 12.7 g/dL (13.0-17.5) L Hematocrit 38.5 % (39.0-53.0) L Mean Corpuscular Volume 88 fL (79-100) Mean Corpuscular Hemoglobin 29 pg (25-35) Mean Corpuscular Hemoglobin Concent 33 g/dL (31-37) Red Cell Distribution Width 14.6 % (11.5-14.5) H Platelet Count 160 x10^3/uL (140-400) Neutrophils (%) (Auto) 67 % (31-73) Lymphocytes (%) (Auto) 26 % (24-48) Monocytes (%) (Auto) 8 % (0-9) Eosinophils (%) (Auto) 0 % (0-3) Basophils (%) (Auto) 0 % (0-3) Neutrophils # (Auto) 5.2 x10^3uL (1.8-7.7) Lymphocytes # (Auto) 2.0 x10^3/uL (1.0-4.8) Monocytes # (Auto) 0.6 x10^3/uL (0.0-1.1) Eosinophils # (Auto) 0.0 x10^3/uL (0.0-0.7) Basophils # (Auto) 0.0 x10^3/uL (0.0-0.2) Sodium Level 147 mmol/L (136-145) H Potassium Level 4.1 mmol/L (3.5-5.1) Chloride Level 112 mmol/L (98-107) H Carbon Dioxide Level 31 mmol/L (21-32) Anion Gap 4 (6-14) L Blood Urea Nitrogen 13 mg/dL (8-26) Creatinine 1.2 mg/dL (0.7-1.3) Estimated GFR (Cockcroft-Gault) 61.6 BUN/Creatinine Ratio 11 (6-20) Glucose Level 147 mg/dL (70-99) H Calcium Level 8.8 mg/dL (8.5-10.1) Total Bilirubin 0.6 mg/dL (0.2-1.0) Aspartate Amino Transferase (AST) 62 U/L (15-37) H Alanine Aminotransferase (ALT) 134 U/L (16-63) H Alkaline Phosphatase 81 U/L (46-116) Total Protein 5.6 g/dL (6.4-8.2) L Albumin 2.7 g/dL (3.4-5.0) L Albumin/Globulin Ratio 0.9 (1.0-1.7) L Current Medications: I have reviewed the current psychotropics carefully including drug interactions. Risk benefit ratio favors no change other than as noted in my dictated progress note. Diagnosis: Problems: (1) Schizoaffective disorder, bipolar type (2) Bipolar disorder with psychotic features (3) Anxiety disorder (4) Impulse control disorder KUNAL BEST MD Sep 09, 2019 22:06
[2019-09-10] MEDS: PANTOPRAZOLE 40 MG TABLET. PO SCH (05:47)
[2019-09-10] MEDS: LEVOTHYROXINE 100 MCG TABLET PO SCH (05:47)
[2019-09-10 06:08] VITALS: BP 112/68
[2019-09-10] MEDS: BENZTROPINE MESYLATE 1 MG TABLET PO SCH ×2 (08:22→20:29)
[2019-09-10] MEDS: METOPROLOL SUCC 24HR ER 25 MG TAB.ER.24H. PO SCH (08:22)
[2019-09-10] MEDS: LITHIUM CARBONATE 300 MG TABLET PO SCH ×2 (08:22→20:37)
[2019-09-10] MEDS: glipiZIDE ER 2.5 MG TAB.ER.24 PO SCH (08:22)
[2019-09-10] MEDS: DOCUSATE SODIUM 100 MG CAPSULE PO SCH ×2 (08:22→20:30)
[2019-09-10 15:46] VITALS: BP 103/71
[2019-09-10] MEDS: SIMVASTATIN 20 MG TABLET PO SCH (20:29)
[2019-09-10] MEDS: cloZAPine 25 MG TABLET PO SCH (20:30)
[2019-09-10] MEDS: DONEPEZIL HCL 10 MG TABLET PO SCH (20:30)
[2019-09-10] MEDS: cloZAPine 100 MG TABLET PO SCH (20:30)
--- NOTE | 2019-09-10 22:31 | PDOC ---
Exam Note: Vincent Note: Please also refer to the separate dictated note~for this date of service dictated separately.~Patient seen individually. Discussed the patient with Nursing staff reviewed the chart.~Reviewed interim history and current functioning. Reviewed vital signs,~Labs/ Radiology~and current medications noted below. Continue current treatment with the changes noted in the dictated addendum note Assessment: Vital Signs/I&O: Vital Signs Date Time Temp Pulse Resp B/P (MAP) Pulse Ox O2 Delivery O2 Flow Rate FiO2 09/10/19 21:22 98.0 09/10/19 15:46 103 20 103/71 (82) 98 Room Air I & O 09/09/19 09/09/19 09/10/19 15:00 23:00 07:00 Intake Total 1320 ml 220 ml Balance 1320 ml 220 ml Current Medications: I have reviewed the current psychotropics carefully including drug interactions. Risk benefit ratio favors no change other than as noted in my dictated progress note. Diagnosis: Problems: (1) Bipolar disorder with psychotic features (2) Schizoaffective disorder, bipolar type (3) Anxiety disorder (4) Impulse control disorder KUNAL BEST MD Sep 10, 2019 22:31
[2019-09-11] MEDS: LEVOTHYROXINE 100 MCG TABLET PO SCH (05:41)
[2019-09-11] MEDS: PANTOPRAZOLE 40 MG TABLET. PO SCH (05:41)
[2019-09-11 05:59] VITALS: BP 143/89
--- NOTE | 2019-09-11 07:02 | PDOC ---
Exam Note: Vincent Note: This note is a late entry for 09/09/2019 covers elements not covered in my initial note. Subjective: The patient was evaluated in the morning of 09/09/2019 with treatment team meeting with Milad (social service staff) and Genia BAIRES. Sleeping average 7 hours. He slept 6-3/4 hours previous night but he lies in his bed most of the day. He is withdrawn, wanting barbiturates and states what I cant cope? Appetite is 100%. Previous evening he was found drinking regular water out of the sink. His absolute neutrophil count is 4500. He has had another COVID swab done for a negative. Review of Systems: No CV, , pulmonary, eye system symptoms on review. Mental Status Exam: Oriented reasonably. The patient was quite fixated on wanting barbiturates and I discussed at some length with him the inappropriateness of this. Abstraction fair. Computation impaired. Language function intact. Attention span is somewhat distractible. Mood and affect withdrawn. No suicidal or homicidal ideation. Laboratory Data: Reviewed. Impression: Schizoaffective disorder, bipolar type. Anxiety disorder unspecified. Impulse control disorder unspecified. Plan: Continue rest of the psychotropics but if he continues to express his anxiety and questionable psychotic symptoms, we may need to increase the Clozaril further. [place] level is therapeutic. Assessment: Vital Signs/I&O: Vital Signs Date Time Temp Pulse Resp B/P (MAP) Pulse Ox O2 Delivery O2 Flow Rate FiO2 09/11/19 05:59 98.1 106 18 143/89 (107) 98 09/10/19 15:46 Room Air I & O 09/10/19 09/10/19 09/11/19 15:00 23:00 07:00 Intake Total 960 ml 660 ml Balance 960 ml 660 ml Current Medications: I have reviewed the current psychotropics carefully including drug interactions. Risk benefit ratio favors no change other than as noted in my dictated progress note. Diagnosis: Problems: (1) Schizoaffective disorder, bipolar type (2) Bipolar disorder with psychotic features (3) Anxiety disorder (4) Impulse control disorder KUNAL BEST MD Sep 11, 2019 07:02
--- NOTE | 2019-09-11 07:12 | PDOC ---
Exam Note: Vincent Note: This note is a late entry for 09/10/2019 covers elements not covered in my initial note. Subjective: The patient was seen on telehealth rounds in the evening of 09/10/2019 with Pepper, nursing staff. Per Marty BAIRES, the patient reportedly has complained of increased tremors. He slept 7 hours previous night. Again wanting barbiturates as I met with him. We talked about keeping his mind busy. He states he does not like to do Crossword puzzles but agrees to listen to the flaco for music to keep himself busy and distracted especially since he is isolated to his room like the rest of the patients consequent to other patients being positive for COVID on the unit. Review of Systems: No CV, , pulmonary, eye system symptoms on review. Mental Status Exam: Oriented reasonably. Speech is coherent. Abstraction neema r. Computation impaired. Language function intact. Attention span is distractible. Mood and affect withdrawn. No suicidal or homicidal ideation. Laboratory Data: Reviewed. Impression: Schizoaffective disorder, bipolar type. Anxiety disorder unspe cified. Impulse control disorder unspecified. Plan: Continue rest of the psychotropics unchanged. Assessment: Vital Signs/I&O: Vital Signs Date Time Temp Pulse Resp B/P (MAP) Pulse Ox O2 Delivery O2 Flow Rate FiO2 09/11/19 05:59 98.1 106 18 143/89 (107) 98 09/10/19 15:46 Room Air I & O 0 09/10/19 09/10/19 09/11/19 15:00 23:00 07:00 Intake Total 960 ml 660 ml Balance 960 ml 660 ml Current Medications: I have reviewed the current psychotropics carefully including drug interactions. Risk benefit ratio favors no change other than as noted in my dictated progress note. Diagnosis: Problems: (1) Schizoaffective disorder, bipolar type (2) Bipolar disorder with psychotic features (3) Anxiety disorder (4) Impulse control disorder KUNAL BEST MD Sep 11, 2019 07:12
[2019-09-11] MEDS: LITHIUM CARBONATE 300 MG TABLET PO SCH ×2 (09:08→21:19)
[2019-09-11] MEDS: DOCUSATE SODIUM 100 MG CAPSULE PO SCH ×2 (09:08→21:18)
[2019-09-11] MEDS: METOPROLOL SUCC 24HR ER 25 MG TAB.ER.24H. PO SCH (09:08)
[2019-09-11] MEDS: BENZTROPINE MESYLATE 1 MG TABLET PO SCH ×2 (09:08→21:18)
[2019-09-11] MEDS: glipiZIDE ER 2.5 MG TAB.ER.24 PO SCH (09:08)
[2019-09-11 15:35] VITALS: BP 106/72
[2019-09-11] MEDS: cloZAPine 100 MG TABLET PO SCH (21:18)
[2019-09-11] MEDS: DONEPEZIL HCL 10 MG TABLET PO SCH (21:18)
[2019-09-11] MEDS: cloZAPine 25 MG TABLET PO SCH (21:18)
[2019-09-11] MEDS: SIMVASTATIN 20 MG TABLET PO SCH (21:18)
--- NOTE | 2019-09-11 22:02 | PDOC ---
Exam Note: Vincent Note: Please also refer to the separate dictated note~for this date of service dictated separately.~Patient seen individually. Discussed the patient with Nursing staff reviewed the chart.~Reviewed interim history and current functioning. Reviewed vital signs,~Labs/ Radiology~and current medications noted below. Continue current treatment with the changes noted in the dictated addendum note Assessment: Vital Signs/I&O: Vital Signs Date Time Temp Pulse Resp B/P (MAP) Pulse Ox O2 Delivery O2 Flow Rate FiO2 09/11/19 19:52 99.0 96 09/11/19 15:35 106 24 106/72 (83) 09/11/19 08:20 Room Air I & O 09/10/19 09/10/19 09/11/19 15:00 23:00 07:00 Intake Total 960 ml 660 ml Balance 960 ml 660 ml Current Medications: I have reviewed the current psychotropics carefully including drug interactions. Risk benefit ratio favors no change other than as noted in my dictated progress note. Diagnosis: Problems: (1) Bipolar disorder with psychotic features (2) Schizoaffective disorder, bipolar type (3) Anxiety disorder (4) Impulse control disorder KUNAL BEST MD Sep 11, 2019 22:02
[2019-09-12] MEDS: LEVOTHYROXINE 100 MCG TABLET PO SCH (06:21)
[2019-09-12 06:24] VITALS: BP 120/79
[2019-09-12] MEDS: LITHIUM CARBONATE 300 MG TABLET PO SCH ×2 (07:58→19:55)
[2019-09-12] MEDS: BENZTROPINE MESYLATE 1 MG TABLET PO SCH ×2 (07:58→19:55)
[2019-09-12] MEDS: METOPROLOL SUCC 24HR ER 25 MG TAB.ER.24H. PO SCH (07:58)
[2019-09-12] MEDS: DOCUSATE SODIUM 100 MG CAPSULE PO SCH ×2 (07:59→19:55)
[2019-09-12] MEDS: PANTOPRAZOLE 40 MG TABLET. PO SCH (07:59)
[2019-09-12] MEDS: glipiZIDE ER 2.5 MG TAB.ER.24 PO SCH (07:59)
[2019-09-12 15:47] VITALS: BP 119/77
[2019-09-12] MEDS: cloZAPine 25 MG TABLET PO SCH (19:54)
[2019-09-12] MEDS: SIMVASTATIN 20 MG TABLET PO SCH (19:54)
[2019-09-12] MEDS: cloZAPine 100 MG TABLET PO SCH (19:55)
[2019-09-12] MEDS: DONEPEZIL HCL 10 MG TABLET PO SCH (19:55)
--- NOTE | 2019-09-12 22:01 | PDOC ---
Exam Note: Vincent Note: Please also refer to the separate dictated note~for this date of service dictated separately.~Patient seen individually. Discussed the patient with Nursing staff reviewed the chart.~Reviewed interim history and current functioning. Reviewed vital signs,~Labs/ Radiology~and current medications noted below. Continue current treatment with the changes noted in the dictated addendum note Assessment: Vital Signs/I&O: Vital Signs Date Time Temp Pulse Resp B/P (MAP) Pulse Ox O2 Delivery O2 Flow Rate FiO2 09/12/19 20:21 98.8 99 09/12/19 15:47 96 18 119/77 (91) 09/11/19 08:20 Room Air I & O 09/11/19 09/11/19 09/12/19 15:00 23:00 07:00 Intake Total 840 ml 200 ml Balance 840 ml 200 ml Current Medications: I have reviewed the current psychotropics carefully including drug interactions. Risk benefit ratio favors no change other than as noted in my dictated progress note. Diagnosis: Problems: (1) Bipolar disorder with psychotic features (2) Schizoaffective disorder, bipolar type (3) Anxiety disorder (4) Impulse control disorder KUNAL BEST MD Sep 12, 2019 22:01
[2019-09-13 05:28] VITALS: BP 132/88
[2019-09-13] MEDS: LEVOTHYROXINE 100 MCG TABLET PO SCH (05:41)
[2019-09-13] MEDS: BENZTROPINE MESYLATE 1 MG TABLET PO SCH ×2 (07:39→19:47)
[2019-09-13] MEDS: PANTOPRAZOLE 40 MG TABLET. PO SCH (07:39)
[2019-09-13] MEDS: LITHIUM CARBONATE 300 MG TABLET PO SCH ×2 (07:39→19:44)
[2019-09-13] MEDS: glipiZIDE ER 2.5 MG TAB.ER.24 PO SCH (07:40)
[2019-09-13] MEDS: DOCUSATE SODIUM 100 MG CAPSULE PO SCH ×2 (07:40→19:46)
[2019-09-13] MEDS: METOPROLOL SUCC 24HR ER 25 MG TAB.ER.24H. PO SCH (07:40)
[2019-09-13 16:12] VITALS: BP 144/87
[2019-09-13] MEDS: DONEPEZIL HCL 10 MG TABLET PO SCH (19:43)
[2019-09-13] MEDS: cloZAPine 100 MG TABLET PO SCH (19:44)
[2019-09-13] MEDS: cloZAPine 25 MG TABLET PO SCH (19:46)
[2019-09-13] MEDS: SIMVASTATIN 20 MG TABLET PO SCH (19:46)
--- NOTE | 2019-09-13 22:04 | PDOC ---
Exam Note: Vincent Note: Please also refer to the separate dictated note~for this date of service dictated separately.~Patient seen individually. Discussed the patient with Nursing staff reviewed the chart.~Reviewed interim history and current functioning. Reviewed vital signs,~Labs/ Radiology~and current medications noted below. Continue current treatment with the changes noted in the dictated addendum note Assessment: Vital Signs/I&O: Vital Signs Date Time Temp Pulse Resp B/P (MAP) Pulse Ox O2 Delivery O2 Flow Rate FiO2 09/13/19 21:52 98.4 98 09/13/19 16:12 110 22 144/87 (106) 09/13/19 05:28 Room Air I & O 09/12/19 09/12/19 09/13/19 15:00 23:00 07:00 Intake Total 960 ml 480 ml Balance 960 ml 480 ml Current Medications: I have reviewed the current psychotropics carefully including drug interactions. Risk benefit ratio favors no change other than as noted in my dictated progress note. Diagnosis: Problems: (1) Schizoaffective disorder, bipolar type (2) Bipolar disorder with psychotic features (3) Anxiety disorder (4) Impulse control disorder KUNAL BEST MD Sep 13, 2019 22:04
[2019-09-14] MEDS: LEVOTHYROXINE 100 MCG TABLET PO SCH (05:38)
[2019-09-14 06:03] VITALS: BP 149/73
--- NOTE | 2019-09-14 07:01 | PDOC ---
Exam Note: Vincent Note: This note is a late entry for 09/11/2019 covers elements not covered in my initial note. Subjective: The patient was seen on telehealth rounds in the evening of 09/11/2019 with nursing staff. Per Viv BAIRES, he slept 5-1/4 hours previous night. He continues to state he is not well, isolates in his room. During the individual visit on telehealth we addressed keeping his mind busy and active and we will provide him a flaco for music and he was very appreciative of this. Review of Systems: Positive for I have difficulty coping. Complains of tiredness. No CV, , pulmonary, eye system symptoms on review. Mental Status Exam: Oriented reasonably. Speech is coherent. Abstraction f air. Computation impaired. Language function intact. Attention span is distractible. Mood and affect withdrawn and anxious. Laboratory Data: Reviewed. Impression: Schizoaffective disorder, bipolar type. Anxiety disorder unspecified. Impulse control disorder unspecified. Plan: Continue rest of the psychotropics unchanged. Assessment: Vital Signs/I&O: Vital Signs Date Time Temp Pulse Resp B/P (MAP) Pulse Ox O2 Delivery O2 Flow Rate FiO2 09/14/19 06:03 98.6 98 16 149/73 (98) 99 Room Air I & O 09/13/19 09/13/19 09/14/19 15:00 23:00 07:00 Intake Total 960 ml 840 ml Balance 960 ml 840 ml Current Medications: I have reviewed the current psychotropics carefully including drug interactions. Risk benefit ratio favors no change other than as noted in my dictated progress note. Diagnosis: Problems: (1) Schizoaffective disorder, bipolar type (2) Bipolar disorder with psychotic features (3) Anxiety disorder (4) Impulse control disorder KUNAL BEST MD Sep 14, 2019 07:01
--- NOTE | 2019-09-14 07:08 | PDOC ---
Exam Note: Vincent Note: This note is a late entry for 09/12/2019 covers elements not covered in my initial note. Subjective: The patient was seen on telehealth rounds in the evening of 09/12/2019 with nursing staff. Per Viv BAIRES, the patient slept reasonably previous night. He remains withdrawn in his room, which is typical for him but he did listen to the flaco music and was appreciative of this. The battery had discharged and the nursing staff will recharge it and provide it to him. No active hallucinations or psychotic symptoms and he is tolerating the Clozaril adequately. Review of Systems: No CV, , pulmonary, eye system symptoms on review. Mental Status Exam: Oriented reasonably. Speech is coherent. Abstraction fair. Computation impaired. Language function intact. Attention span is short. Mood and affect withdrawn. No active hallucinations or psychotic symptoms noted. Laboratory Data: Reviewed. Impression: Schizoaffective disorder, bipolar type. Anxiety disorder unspecified. Impulse control disorder unspecified. Plan: Continue rest of the psychotropics unchanged. Assessment: Vital Signs/I&O: Vital Signs Date Time Temp Pulse Resp B/P (MAP) Pulse Ox O2 Delivery O2 Flow Rate FiO2 09/14/19 06:03 98.6 98 16 149/73 (98) 99 Room Air I & O 09/13/19 09/13/19 09/14/19 15:00 23:00 07:00 Intake Total 960 ml 840 ml Balance 960 ml 840 ml Current Medications: I have reviewed the current psychotropics carefully including drug interactions. Risk benefit ratio favors no change other than as noted in my dictated progress note. Diagnosis: Problems: (1) Bipolar disorder with psychotic features (2) Schizoaffective disorder, bipolar type (3) Anxiety disorder (4) Impulse control disorder KUNAL BEST MD Sep 14, 2019 07:08
--- NOTE | 2019-09-14 07:18 | PDOC ---
Exam Note: Vincent Note: This note is a late entry for 09/13/2019 covers elements not covered in my initial note. Subjective: The patient was seen on telehealth rounds in the evening of 09/13/2019 with nursing staff. Per Viv BAIRES, the patient slept 6-3/4 hours previous night. He was irritable in the morning, pleasant later in the day. The patient seemed little calmer today, was less fixated on wanting barbiturates as he was fixated on yesterday and the day before. Review of Systems: No CV, , pulmonary, eye system symptoms on review. Mental Status Exam: Oriented reasonably. Speech is coherent. Abstraction fair. Computation impaired. Language function intact. Attention span is shot. Mood and affect withdrawn. No suicidal or homicidal ideation. No psychotic symptoms or hallucinations noted. Laboratory Data: Reviewed. Impression: Schizoaffective disorder, bipolar type. Anxiety disorder unspecified. Impulse control disorder unspecified. Plan: Continue rest of the psychotropics unchanged. Assessment: Vital Signs/I&O: Vital Signs Date Time Temp Pulse Resp B/P (MAP) Pulse Ox O2 Delivery O2 Flow Rate FiO2 09/14/19 06:03 98.6 98 16 149/73 (98) 99 Room Air I & O 09/13/19 09/13/19 09/14/19 15:00 23:00 07:00 Intake Total 960 ml 840 ml Balance 960 ml 840 ml Current Medications: I have reviewed the current psychotropics carefully including drug interactions. Risk benefit ratio favors no change other than as noted in my dictated progress note. Diagnosis: Problems: (1) Bipolar disorder with psychotic features (2) Schizoaffective disorder, bipolar type (3) Anxiety disorder (4) Impulse control disorder KUNAL BEST MD Sep 14, 2019 07:18
[2019-09-14] MEDS: DOCUSATE SODIUM 100 MG CAPSULE PO SCH ×2 (08:23→19:37)
[2019-09-14] MEDS: LITHIUM CARBONATE 300 MG TABLET PO SCH ×2 (08:23→19:38)
[2019-09-14] MEDS: PANTOPRAZOLE 40 MG TABLET. PO SCH (08:24)
[2019-09-14] MEDS: BENZTROPINE MESYLATE 1 MG TABLET PO SCH ×2 (08:24→19:37)
[2019-09-14] MEDS: METOPROLOL SUCC 24HR ER 25 MG TAB.ER.24H. PO SCH (08:24)
[2019-09-14] MEDS: glipiZIDE ER 2.5 MG TAB.ER.24 PO SCH (08:25)
[2019-09-14] MEDS: CHOLECALCIFEROL (VITAMIN D3) 50,000 UNIT CAPSULE PO SCH (08:25)
[2019-09-14 16:50] VITALS: BP 122/79
[2019-09-14] MEDS: cloZAPine 25 MG TABLET PO SCH (19:35)
[2019-09-14] MEDS: SIMVASTATIN 20 MG TABLET PO SCH (19:37)
[2019-09-14] MEDS: cloZAPine 100 MG TABLET PO SCH (19:37)
[2019-09-14] MEDS: DONEPEZIL HCL 10 MG TABLET PO SCH (19:37)
--- NOTE | 2019-09-14 22:03 | PDOC ---
Exam Note: Vincent Note: Please also refer to the separate dictated note~for this date of service dictated separately.~Patient seen individually. Discussed the patient with Nursing staff reviewed the chart.~Reviewed interim history and current functioning. Reviewed vital signs,~Labs/ Radiology~and current medications noted below. Continue current treatment with the changes noted in the dictated addendum note Assessment: Vital Signs/I&O: Vital Signs Date Time Temp Pulse Resp B/P (MAP) Pulse Ox O2 Delivery O2 Flow Rate FiO2 09/14/19 20:41 99.0 96 09/14/19 16:50 93 18 122/79 (93) 09/14/19 06:03 Room Air I & O 09/13/19 09/13/19 09/14/19 15:00 23:00 07:00 Intake Total 960 ml 840 ml Balance 960 ml 840 ml Current Medications: I have reviewed the current psychotropics carefully including drug interactions. Risk benefit ratio favors no change other than as noted in my dictated progress note. Diagnosis: Problems: (1) Schizoaffective disorder, bipolar type (2) Bipolar disorder with psychotic features (3) Anxiety disorder (4) Impulse control disorder KUNAL BEST MD Sep 14, 2019 22:03
[2019-09-15] MEDS: LEVOTHYROXINE 100 MCG TABLET PO SCH (05:23)
[2019-09-15 06:00] VITALS: BP 132/86
[2019-09-15] MEDS: LITHIUM CARBONATE 300 MG TABLET PO SCH ×2 (08:32→20:25)
[2019-09-15] MEDS: DOCUSATE SODIUM 100 MG CAPSULE PO SCH ×2 (08:32→20:24)
[2019-09-15] MEDS: BENZTROPINE MESYLATE 1 MG TABLET PO SCH ×2 (08:32→20:24)
[2019-09-15] MEDS: PANTOPRAZOLE 40 MG TABLET. PO SCH (08:32)
[2019-09-15] MEDS: glipiZIDE ER 2.5 MG TAB.ER.24 PO SCH (08:33)
[2019-09-15] MEDS: METOPROLOL SUCC 24HR ER 25 MG TAB.ER.24H. PO SCH (08:33)
[2019-09-15 15:30] VITALS: BP 128/84
[2019-09-15] MEDS: cloZAPine 25 MG TABLET PO SCH (20:24)
[2019-09-15] MEDS: cloZAPine 100 MG TABLET PO SCH (20:24)
[2019-09-15] MEDS: DONEPEZIL HCL 10 MG TABLET PO SCH (20:25)
[2019-09-15] MEDS: SIMVASTATIN 20 MG TABLET PO SCH (20:25)
[2019-09-16] MEDS: LEVOTHYROXINE 100 MCG TABLET PO SCH (05:46)
[2019-09-16 06:05] LABS: ALBUMIN/GLOBULIN RATIO 1.2 (1.0-1.7); CREATININE 1.4 mg/dL (0.7-1.3); GFR 51.5; TOTAL BILIRUBIN 0.7 mg/dL (0.2-1.0); TOTAL PROTEIN 5.6 g/dL (6.4-8.2)
[2019-09-16 06:17] VITALS: BP 131/88
--- NOTE | 2019-09-16 07:12 | PDOC ---
Exam Note: Vincent Note: This note is a late entry for 09/14/2019 covers elements not covered in my initial note. Subjective: The patient was seen on telehealth rounds in the evening of 09/14/2019 with Lorena BAIRES. Per Lorena BAIRES, the patient slept 7 hours previous night. He has been in his room listening to music from the 60s in the [facility], appreciative of this. However, when I met with him he was insisting he needed to be drinking regular water rather than thickened liquids. We have to follow the speech therapy recommendation given his aspiration risk and I addressed this with him. He was then wanting phenobarbitals as before. Attempted to distract him by focusing him on other things he should keep his mind busy with including listening to music that he enjoys and he did seem to redirect. Review of Systems: No CV, , pulmonary, eye system symptoms on review. Mental Status Exam: Oriented reasonably. Speech is coherent. Abstraction fair. Computation impaired. Language function intact. Attention span is short. Mood and affect anxious, withdrawn. No suicidal or homicidal ideation. No psychotic symptoms or hallucinations noted. Laboratory Data: Reviewed. Impression: Schizoaffective disorder, bipolar type. Anxiety disorder unspecified. Impulse control disorder unspecified. Plan: Continue rest of the psychotropics unchanged. Assessment: Vital Signs/I&O: Vital Signs Date Time Temp Pulse Resp B/P (MAP) Pulse Ox O2 Delivery O2 Flow Rate FiO2 09/16/19 06:17 98.4 95 24 131/88 (102) 96 09/15/19 15:30 Room Air I & O 09/15/19 09/15/19 09/16/19 15:00 23:00 07:00 Intake Total 960 ml 640 ml 160 ml Balance 960 ml 640 ml 160 ml Labs: Laboratory Tests Test 09/16/19 05:40 Sodium Level 140 mmol/L (136-145) Potassium Level 4.0 mmol/L (3.5-5.1) Chloride Level 108 mmol/L (98-107) H Carbon Dioxide Level 30 mmol/L (21-32) Anion Gap 2 (6-14) L Blood Urea Nitrogen 16 mg/dL (8-26) Creatinine 1.4 mg/dL (0.7-1.3) H Estimated GFR (Cockcroft-Gault) 51.5 BUN/Creatinine Ratio 11 (6-20) Glucose Level 138 mg/dL (70-99) H Calcium Level 9.0 mg/dL (8.5-10.1) Total Bilirubin 0.7 mg/dL (0.2-1.0) Aspartate Amino Transferase (AST) 56 U/L (15-37) H Alanine Aminotransferase (ALT) 117 U/L (16-63) H Alkaline Phosphatase 92 U/L (46-116) Total Protein 5.6 g/dL (6.4-8.2) L Albumin 3.0 g/dL (3.4-5.0) L Albumin/Globulin Ratio 1.2 (1.0-1.7) Current Medications: I have reviewed the current psychotropics carefully including drug interactions. Risk benefit ratio favors no change other than as noted in my dictated progress note. Diagnosis: Problems: (1) Schizoaffective disorder, bipolar type (2) Bipolar disorder with psychotic features (3) Anxiety disorder (4) Impulse control disorder KUNAL BEST MD Sep 16, 2019 07:12
--- NOTE | 2019-09-16 07:13 | PDOC ---
Exam Note: Vincent Note: This is a late entry for DOS 09/15/19. Please also refer to the separate dictated note~for this date of service dictated separately.~Patient seen individually. Discussed the patient with Nursing staff reviewed the chart.~Reviewed interim history and current functioning. Reviewed vital signs,~Labs/ Radiology~and current medications noted below. Continue current treatment with the changes noted in the dictated addendum note Assessment: Vital Signs/I&O: Vital Signs Date Time Temp Pulse Resp B/P (MAP) Pulse Ox O2 Delivery O2 Flow Rate FiO2 09/16/19 06:17 98.4 95 24 131/88 (102) 96 09/15/19 15:30 Room Air I & O 09/15/19 09/15/19 09/16/19 15:00 23:00 07:00 Intake Total 960 ml 640 ml 160 ml Balance 960 ml 640 ml 160 ml Labs: Laboratory Tests Test 09/16/19 05:40 Sodium Level 140 mmol/L (136-145) Potassium Level 4.0 mmol/L (3.5-5.1) Chloride Level 108 mmol/L (98-107) H Carbon Dioxide Level 30 mmol/L (21-32) Anion Gap 2 (6-14) L Blood Urea Nitrogen 16 mg/dL (8-26) Creatinine 1.4 mg/dL (0.7-1.3) H Estimated GFR (Cockcroft-Gault) 51.5 BUN/Creatinine Ratio 11 (6-20) Glucose Level 138 mg/dL (70-99) H Calcium Level 9.0 mg/dL (8.5-10.1) Total Bilirubin 0.7 mg/dL (0.2-1.0) Aspartate Amino Transferase (AST) 56 U/L (15-37) H Alanine Aminotransferase (ALT) 117 U/L (16-63) H Alkaline Phosphatase 92 U/L (46-116) Total Protein 5.6 g/dL (6.4-8.2) L Albumin 3.0 g/dL (3.4-5.0) L Albumin/Globulin Ratio 1.2 (1.0-1.7) Current Medications: I have reviewed the current psychotropics carefully including drug interactions. Risk benefit ratio favors no change other than as noted in my dictated progress note. Diagnosis: Problems: (1) Schizoaffective disorder, bipolar type (2) Bipolar disorder with psychotic features (3) Anxiety disorder (4) Impulse control disorder KUNAL BEST MD Sep 16, 2019 07:13
[2019-09-16] MEDS: LITHIUM CARBONATE 300 MG TABLET PO SCH ×2 (08:08→20:16)
[2019-09-16] MEDS: DOCUSATE SODIUM 100 MG CAPSULE PO SCH ×2 (08:08→20:14)
[2019-09-16] MEDS: BENZTROPINE MESYLATE 1 MG TABLET PO SCH ×2 (08:08→20:15)
[2019-09-16] MEDS: METOPROLOL SUCC 24HR ER 25 MG TAB.ER.24H. PO SCH (08:08)
[2019-09-16] MEDS: PANTOPRAZOLE 40 MG TABLET. PO SCH (08:09)
[2019-09-16] MEDS: glipiZIDE ER 2.5 MG TAB.ER.24 PO SCH (08:09)
[2019-09-16 09:14] LABS: BASO % 0 % (0-3); EOS % 0 % (0-3); HEMATOCRIT 38.9 % (39.0-53.0); HEMOGLOBIN 12.7 g/dL (13.0-17.5); LYMPH # 1.4 x10^3/uL (1.0-4.8); LYMPH % 15 % (24-48); MEAN CORPUSCULAR HEMOGLOBIN 29 pg (25-35); MEAN CORPUSCULAR HGB CONC 33 g/dL (31-37); MEAN CORPUSCULAR VOLUME 88 fL (79-100); MONO # 0.6 x10^3/uL (0.0-1.1); MONO % 6 % (0-9); NEUT # 7.5 x10^3uL (1.8-7.7); NEUT % 79 % (31-73); PLATELET COUNT 167 x10^3/uL (140-400); RED BLOOD COUNT 4.41 x10^6/uL (4.30-5.70); RED CELL DISTRIBUTION WIDTH 14.8 % (11.5-14.5); WHITE BLOOD COUNT 9.5 x10^3/uL (4.0-11.0)
[2019-09-16 15:34] VITALS: BP 121/75
[2019-09-16] MEDS: DONEPEZIL HCL 10 MG TABLET PO SCH (20:15)
[2019-09-16] MEDS: cloZAPine 25 MG TABLET PO SCH (20:15)
[2019-09-16] MEDS: cloZAPine 100 MG TABLET PO SCH (20:16)
[2019-09-16] MEDS: SIMVASTATIN 20 MG TABLET PO SCH (20:16)
--- NOTE | 2019-09-16 21:56 | PDOC ---
Exam Note: Vincent Note: Please also refer to the separate dictated note~for this date of service dictated separately.~Patient seen individually. Discussed the patient with Nursing staff reviewed the chart.~Reviewed interim history and current functioning. Reviewed vital signs,~Labs/ Radiology~and current medications noted below. Continue current treatment with the changes noted in the dictated addendum note Assessment: Vital Signs/I&O: Vital Signs Date Time Temp Pulse Resp B/P (MAP) Pulse Ox O2 Delivery O2 Flow Rate FiO2 09/16/19 19:55 98.4 09/16/19 15:34 103 22 121/75 (90) 98 09/16/19 08:17 Room Air I & O 09/15/19 09/15/19 09/16/19 15:00 23:00 07:00 Intake Total 960 ml 640 ml 160 ml Balance 960 ml 640 ml 160 ml Labs: Laboratory Tests Test 09/16/19 05:40 09/16/19 08:58 Sodium Level 140 mmol/L (136-145) Potassium Level 4.0 mmol/L (3.5-5.1) Chloride Level 108 mmol/L (98-107) H Carbon Dioxide Level 30 mmol/L (21-32) Anion Gap 2 (6-14) L Blood Urea Nitrogen 16 mg/dL (8-26) Creatinine 1.4 mg/dL (0.7-1.3) H Estimated GFR (Cockcroft-Gault) 51.5 BUN/Creatinine Ratio 11 (6-20) Glucose Level 138 mg/dL (70-99) H Calcium Level 9.0 mg/dL (8.5-10.1) Total Bilirubin 0.7 mg/dL (0.2-1.0) Aspartate Amino Transferase (AST) 56 U/L (15-37) H Alanine Aminotransferase (ALT) 117 U/L (16-63) H Alkaline Phosphatase 92 U/L (46-116) Total Protein 5.6 g/dL (6.4-8.2) L Albumin 3.0 g/dL (3.4-5.0) L Albumin/Globulin Ratio 1.2 (1.0-1.7) White Blood Count 9.5 x10^3/uL (4.0-11.0) Red Blood Count 4.41 x10^6/uL (4.30-5.70) Hemoglobin 12.7 g/dL (13.0-17.5) L Hematocrit 38.9 % (39.0-53.0) L Mean Corpuscular Volume 88 fL (79-100) Mean Corpuscular Hemoglobin 29 pg (25-35) Mean Corpuscular Hemoglobin Concent 33 g/dL (31-37) Red Cell Distribution Width 14.8 % (11.5-14.5) H Platelet Count 167 x10^3/uL (140-400) Neutrophils (%) (Auto) 79 % (31-73) H Lymphocytes (%) (Auto) 15 % (24-48) L Monocytes (%) (Auto) 6 % (0-9) Eosinophils (%) (Auto) 0 % (0-3) Basophils (%) (Auto) 0 % (0-3) Neutrophils # (Auto) 7.5 x10^3uL (1.8-7.7) Lymphocytes # (Auto) 1.4 x10^3/uL (1.0-4.8) Monocytes # (Auto) 0.6 x10^3/uL (0.0-1.1) Eosinophils # (Auto) 0.0 x10^3/uL (0.0-0.7) Basophils # (Auto) 0.0 x10^3/uL (0.0-0.2) Current Medications: I have reviewed the current psychotropics carefully including drug interactions. Risk benefit ratio favors no change other than as noted in my dictated progress note. Diagnosis: Problems: (1) Schizoaffective disorder, bipolar type (2) Bipolar disorder with psychotic features (3) Anxiety disorder (4) Impulse control disorder KUNAL BEST MD Sep 16, 2019 21:56
[2019-09-17] MEDS: LEVOTHYROXINE 100 MCG TABLET PO SCH (05:21)
[2019-09-17 06:04] VITALS: BP 122/81
[2019-09-17] MEDS: PANTOPRAZOLE 40 MG TABLET. PO SCH (08:06)
[2019-09-17] MEDS: BENZTROPINE MESYLATE 1 MG TABLET PO SCH ×2 (08:06→19:37)
[2019-09-17] MEDS: glipiZIDE ER 2.5 MG TAB.ER.24 PO SCH (08:07)
[2019-09-17] MEDS: METOPROLOL SUCC 24HR ER 25 MG TAB.ER.24H. PO SCH (08:07)
[2019-09-17] MEDS: LITHIUM CARBONATE 300 MG TABLET PO SCH ×2 (08:07→19:38)
[2019-09-17] MEDS: DOCUSATE SODIUM 100 MG CAPSULE PO SCH ×2 (08:07→19:37)
[2019-09-17 15:24] VITALS: BP 116/71
[2019-09-17] MEDS: cloZAPine 100 MG TABLET PO SCH (19:36)
[2019-09-17] MEDS: cloZAPine 25 MG TABLET PO SCH (19:37)
[2019-09-17] MEDS: DONEPEZIL HCL 10 MG TABLET PO SCH (19:37)
[2019-09-17] MEDS: SIMVASTATIN 20 MG TABLET PO SCH (19:38)
--- NOTE | 2019-09-17 21:59 | PDOC ---
Exam Note: Vincent Note: Please also refer to the separate dictated note~for this date of service dictated separately.~Patient seen individually. Discussed the patient with Nursing staff reviewed the chart.~Reviewed interim history and current functioning. Reviewed vital signs,~Labs/ Radiology~and current medications noted below. Continue current treatment with the changes noted in the dictated addendum note Assessment: Vital Signs/I&O: Vital Signs Date Time Temp Pulse Resp B/P (MAP) Pulse Ox O2 Delivery O2 Flow Rate FiO2 09/17/19 19:44 97.5 98 09/17/19 15:24 103 18 116/71 (86) 09/17/19 06:04 Room Air I & O 09/16/19 09/16/19 09/17/19 15:00 23:00 07:00 Intake Total 1140 ml 660 ml Balance 1140 ml 660 ml Current Medications: I have reviewed the current psychotropics carefully including drug interactions. Risk benefit ratio favors no change other than as noted in my dictated progress note. Diagnosis: Problems: (1) Schizoaffective disorder, bipolar type (2) Bipolar disorder with psychotic features (3) Anxiety disorder (4) Impulse control disorder KUNAL BEST MD Sep 17, 2019 21:59
[2019-09-18] MEDS: LEVOTHYROXINE 100 MCG TABLET PO SCH (05:34)
[2019-09-18 06:29] VITALS: BP 147/93
--- NOTE | 2019-09-18 06:52 | PDOC ---
Exam Note: Vincent Note: This note is a late entry for 09/15/2019 covers elements not covered in my initial note. Subjective: The patient was seen on telehealth rounds in the evening of 09/15/2019 with nursing staff. Per Genia BAIRES, the patient slept 7-1/2 hours previous night. Temperature was 99.3 degrees F. We will defer to Dr. Muhammad, heart rate was 114. Later it appeared to stabilize. He does continue to listen to the music of the 60s on his flaco. Later as I met with him, he was again asking about barbiturates thats the only thing that will help me. Ill need it. I processed pros and cons with this. Review of Systems: No CV, , pulmonary, eye system symptoms on review. Mental Status Exam: Oriented reasonably. Speech is coherent. Abstraction fair. Computation impaired. Language function intact. Attention span is panda rt. Mood and affect anxious, withdrawn. No psychotic symptoms or hallucinations noted. Laboratory Data: Reviewed. Impression: Schizoaffective disorder, bipolar type. Anxiety disorder unspecified. Impulse control disorder unspecified. Plan: He is currently on Clozaril 650 mg h.s. This seems adequate dosage for now. No active hallucinations or psychotic symptoms noted and he is tolerating it well. Continue rest of the psychotropics unchanged. Assessment: Vital Signs/I&O: Vital Signs Date Time Temp Pulse Resp B/P (MAP) Pulse Ox O2 Delivery O2 Flow Rate FiO2 09/18/19 06:29 98.9 108 20 147/93 (111) 98 Room Air I & O 09/17/19 09/17/19 09/18/19 15:00 23:00 07:00 Intake Total 960 ml 1375 ml Balance 960 ml 1375 ml Current Medications: I have reviewed the current psychotropics carefully including drug interactions. Risk benefit ratio favors no change other than as noted in my dictated progress note. Diagnosis: Problems: (1) Bipolar disorder with psychotic features (2) Schizoaffective disorder, bipolar type (3) Anxiety disorder (4) Impulse control disorder KUNAL BEST MD Sep 18, 2019 06:52
--- NOTE | 2019-09-18 07:05 | PDOC ---
Exam Note: Vincent Note: This note is a late entry for 09/16/2019 covers elements not covered in my initial note. Subjective: The patient was evaluated in the morning of 09/16/2019 with treatment team meeting with Milad (social service staff) and Marty BAIRES. Absolute neutrophil count is 7505. He did run a temperature of 99.3 degrees F but repeat is 98.4 degrees F. Sleeping average is 6 hours, slept 61/4 hours previous night. As before he is again wanting barbiturates and does not like the thickened liquids. I addressed this with him. He was seen in his room somewhat isolative at times and frequently states I cant cope. Review of Systems: No CV, , pulmonary, eye system symptoms on review. Mental Status Exam: Oriented reasonably. Speech is coherent. Abstraction fair. Computation impaired. Language function intact. Attention span is short. Mood and affect anxious, withdrawn. No suicidal or homicidal ideation. No psychotic symptoms or hallucinations noted. Laboratory Data: Reviewed. Impression: Schizoaffective disorder, bipolar type. Anxiety disorder unspecified. Impulse control disorder unspecified. Plan: Continue rest of the psychotropics unchanged. Assessment: Vital Signs/I&O: Vital Signs Date Time Temp Pulse Resp B/P (MAP) Pulse Ox O2 Delivery O2 Flow Rate FiO2 09/18/19 06:29 98.9 108 20 147/93 (111) 98 Room Air I & O 09/17/19 09/17/19 09/18/19 15:00 23:00 07:00 Intake Total 960 ml 1375 ml Balance 960 ml 1375 ml Current Medications: I have reviewed the current psychotropics carefully including drug interactions. Risk benefit ratio favors no change other than as noted in my dictated progress note. Diagnosis: Problems: (1) Bipolar disorder with psychotic features (2) Schizoaffective disorder, bipolar type (3) Anxiety disorder (4) Impulse control disorder KUNAL BEST MD Sep 18, 2019 07:05
--- NOTE | 2019-09-18 07:17 | PDOC ---
Exam Note: Vincent Note: This note is a late entry for 09/17/2019 covers elements not covered in my initial note. Subjective: The patient was seen on telehealth rounds in the evening of 09/17/2019 with Susan BAIRES with camera around. Per Viv BAIRES, the patient slept 6-3/4 hours previous night. The patient spends much time in his room. He stays in bed. Initially he refused the flaco but did accept it later and he was quite actively listening to music of the 60s. He was less fixated on wanting barbiturates but did ask for it once during the visit today. This is the only thing that will help me. He is somewhat tired, withdrawn typical for him. Review of Systems: No CV, , pulmonary, eye system symptoms on review. Mental Status Exam: Oriented reasonably. Speech is coherent. Abstraction fair. Computation impaired. Language function intact. Attention span is short. Mood and affect withdrawn. No suicidal or homicidal ideation. No psychotic symptoms or hallucinations noted. Laboratory Data: Reviewed. Impression: Schizoaffective disorder, bipolar type. Anxiety disorder u nspecified. Impulse control disorder unspecified. Plan: Continue rest of the psychotropics unchanged. Assessment: Vital Signs/I&O: Vital Signs Date Time Temp Pulse Resp B/P (MAP) Pulse Ox O2 Delivery O2 Flow Rate FiO2 09/18/19 06:29 98.9 108 20 147/93 (111) 98 Room Air I & O 09/17/19 09/17/19 09/18/19 15:00 23:00 07:00 Intake Total 960 ml 1375 ml Balance 960 ml 1375 ml Current Medications: I have reviewed the current psychotropics carefully including drug interactions. Risk benefit ratio favors no change other than as noted in my dictated progress note. Diagnosis: Problems: (1) Bipolar disorder with psychotic features (2) Anxiety disorder (3) Impulse control disorder (4) Schizoaffective disorder, bipolar type KUNAL BEST MD Sep 18, 2019 07:17
[2019-09-18] MEDS: LITHIUM CARBONATE 300 MG TABLET PO SCH ×3 (08:16→21:00)
[2019-09-18] MEDS: DOCUSATE SODIUM 100 MG CAPSULE PO SCH ×3 (08:17→21:00)
[2019-09-18] MEDS: PANTOPRAZOLE 40 MG TABLET. PO SCH (08:17)
[2019-09-18] MEDS: METOPROLOL SUCC 24HR ER 25 MG TAB.ER.24H. PO SCH (08:17)
[2019-09-18] MEDS: BENZTROPINE MESYLATE 1 MG TABLET PO SCH ×3 (08:17→21:00)
[2019-09-18] MEDS: glipiZIDE ER 2.5 MG TAB.ER.24 PO SCH (08:18)
[2019-09-18 15:27] VITALS: BP 106/70
[2019-09-18] MEDS: DONEPEZIL HCL 10 MG TABLET PO SCH ×2 (20:34→21:00)
[2019-09-18] MEDS: cloZAPine 25 MG TABLET PO SCH ×2 (20:35→21:00)
[2019-09-18] MEDS: cloZAPine 100 MG TABLET PO SCH ×2 (20:35→21:00)
[2019-09-18] MEDS: SIMVASTATIN 20 MG TABLET PO SCH ×2 (20:35→21:00)
--- NOTE | 2019-09-18 22:00 | PDOC ---
Exam Note: Vincent Note: Please also refer to the separate dictated note~for this date of service dictated separately.~Patient seen individually. Discussed the patient with Nursing staff reviewed the chart.~Reviewed interim history and current functioning. Reviewed vital signs,~Labs/ Radiology~and current medications noted below. Continue current treatment with the changes noted in the dictated addendum note Assessment: Vital Signs/I&O: Vital Signs Date Time Temp Pulse Resp B/P (MAP) Pulse Ox O2 Delivery O2 Flow Rate FiO2 09/18/19 20:33 98.8 97 09/18/19 15:27 108 18 106/70 (82) 09/18/19 06:29 Room Air I & O 09/17/19 09/17/19 09/18/19 15:00 23:00 07:00 Intake Total 960 ml 1375 ml Balance 960 ml 1375 ml Current Medications: I have reviewed the current psychotropics carefully including drug interactions. Risk benefit ratio favors no change other than as noted in my dictated progress note. Diagnosis: Problems: (1) Schizoaffective disorder, bipolar type (2) Bipolar disorder with psychotic features (3) Anxiety disorder (4) Impulse control disorder KUNAL BEST MD Sep 18, 2019 22:00
[2019-09-19 05:01] VITALS: BP 118/74
[2019-09-19] MEDS: LEVOTHYROXINE 100 MCG TABLET PO SCH (05:25)
[2019-09-19] MEDS: METOPROLOL SUCC 24HR ER 25 MG TAB.ER.24H. PO SCH (08:28)
[2019-09-19] MEDS: DOCUSATE SODIUM 100 MG CAPSULE PO SCH ×2 (08:28→19:46)
[2019-09-19] MEDS: LITHIUM CARBONATE 300 MG TABLET PO SCH ×2 (08:28→19:47)
[2019-09-19] MEDS: BENZTROPINE MESYLATE 1 MG TABLET PO SCH ×2 (08:28→19:47)
[2019-09-19] MEDS: PANTOPRAZOLE 40 MG TABLET. PO SCH (08:29)
[2019-09-19] MEDS: glipiZIDE ER 2.5 MG TAB.ER.24 PO SCH (08:29)
[2019-09-19 15:15] VITALS: BP 125/76
[2019-09-19] MEDS: DONEPEZIL HCL 10 MG TABLET PO SCH (19:46)
[2019-09-19] MEDS: cloZAPine 25 MG TABLET PO SCH (19:46)
[2019-09-19] MEDS: cloZAPine 100 MG TABLET PO SCH (19:46)
[2019-09-19] MEDS: SIMVASTATIN 20 MG TABLET PO SCH (19:47)
--- NOTE | 2019-09-19 21:57 | PDOC ---
Exam Note: Vincent Note: Please also refer to the separate dictated note~for this date of service dictated separately.~Patient seen individually. Discussed the patient with Nursing staff reviewed the chart.~Reviewed interim history and current functioning. Reviewed vital signs,~Labs/ Radiology~and current medications noted below. Continue current treatment with the changes noted in the dictated addendum note Assessment: Vital Signs/I&O: Vital Signs Date Time Temp Pulse Resp B/P (MAP) Pulse Ox O2 Delivery O2 Flow Rate FiO2 09/19/19 20:24 98.5 97 09/19/19 15:15 86 18 125/76 (92) Room Air I & O 09/18/19 09/18/19 09/19/19 15:00 23:00 07:00 Intake Total 600 ml 600 ml Balance 600 ml 600 ml Labs: Laboratory Tests Test 09/19/19 07:25 09/19/19 16:55 09/19/19 19:07 Glucose (Fingerstick) 134 mg/dL (70-99) H 111 mg/dL (70-99) H 128 mg/dL (70-99) H Current Medications: I have reviewed the current psychotropics carefully including drug interactions. Risk benefit ratio favors no change other than as noted in my dictated progress note. Diagnosis: Problems: (1) Schizoaffective disorder, bipolar type (2) Bipolar disorder with psychotic features (3) Anxiety disorder (4) Impulse control disorder KUNAL BEST MD Sep 19, 2019 21:57
[2019-09-20] MEDS: LEVOTHYROXINE 100 MCG TABLET PO SCH (05:35)
[2019-09-20 05:51] VITALS: BP 93/63
--- NOTE | 2019-09-20 07:08 | PDOC ---
Exam Note: Vincent Note: This note is a late entry for 09/18/2019 covers elements not covered in my initial note. Subjective: The patient was seen on telehealth rounds in the evening of 09/18/2019 with nursing RN. Per Viv BAIRES, the patient slept 6-3/4 hours previous night. He did well at night, refused to listen to music on 2 occas ions, later accepted it. As I met with her, he complains of being tired and states I cant cope. When questioned specifically on what he means by this he is unable to elaborate and goes right back to stating the only thing that will help him is barbiturates. Review of Systems: Positive for tiredness. No CV, , pulmonary, eye system symptoms on review. Mental Status Exam: Oriented reasonably. Speech is coherent. Abstraction fair. Computation impaired. Language function intact. Attention span is short. Mood and affect withdrawn. No psychotic symptoms or hallucinations noted. Laboratory Data: Reviewed. Impression: Schizoaffective disorder, bipolar type. Anxiety disorder unspecified. Impulse control disorder unspecified. Plan: Continue rest of the psychotropics unchanged. Assessment: Vital Signs/I&O: Vital Signs Date Time Temp Pulse Resp B/P (MAP) Pulse Ox O2 Delivery O2 Flow Rate FiO2 09/20/19 05:51 98.2 101 22 93/63 (73) 99 09/19/19 15:15 Room Air I & O 09/19/19 09/19/19 09/20/19 15:00 23:00 07:00 Intake Total 600 ml 240 ml Balance 600 ml 240 ml Labs: Laboratory Tests Test 09/19/19 07:25 09/19/19 16:55 09/19/19 19:07 Glucose (Fingerstick) 134 mg/dL (70-99) H 111 mg/dL (70-99) H 128 mg/dL (70-99) H Current Medications: I have reviewed the current psychotropics carefully including drug interactions. Risk benefit ratio favors no change other than as noted in my dictated progress note. Diagnosis: Problems: (1) Bipolar disorder with psychotic features (2) Schizoaffective disorder, bipolar type (3) Anxiety disorder (4) Impulse control disorder KUNAL BEST MD Sep 20, 2019 07:08
--- NOTE | 2019-09-20 07:18 | PDOC ---
Exam Note: Vincent Note: This note is a late entry for 09/19/2019 covers elements not covered in my initial note. Subjective: The patient was seen on telehealth rounds in the evening of 09/19/2019 with nursing staff. Per Yung BAIRES, the patient has been pleasant, calm. Review of Systems: Positive for tiredness. No CV, , pulmonary, eye system symptoms on review. Mental Status Exam: Oriented reasonably. Once again the patient was fixated on wanting barbiturates your medication is not helping me. I know the only thing that will help me is barbiturates. I processed this with him. Abstraction fair. Computation impaired. Language function intact. Attention span is short. No suicidal or homicidal ideation. No psychotic symptoms or hallucinations noted. Laboratory Data: Reviewed. Impression: Schizoaffective disorder, bipolar type. Anxiety disorder unspecified. Impulse control disorder unspecified. Plan: Continue rest of the psychotropics unchanged. Assessment: Vital Signs/I&O: Vital Signs Date Time Temp Pulse Resp B/P (MAP) Pulse Ox O2 Delivery O2 Flow Rate FiO2 09/20/19 05:51 98.2 101 22 93/63 (73) 99 09/19/19 15:15 Room Air I & O 09/19/19 09/19/19 09/20/19 15:00 23:00 07:00 Intake Total 600 ml 240 ml Balance 600 ml 240 ml Labs: Laboratory Tests Test 09/19/19 07:25 09/19/19 16:55 09/19/19 19:07 Glucose (Fingerstick) 134 mg/dL (70-99) H 111 mg/dL (70-99) H 128 mg/dL (70-99) H Current Medications: I have reviewed the current psychotropics carefully including drug interactions. Risk benefit ratio favors no change other than as noted in my dictated progress note. Diagnosis: Problems: (1) Schizoaffective disorder, bipolar type (2) Bipolar disorder with psychotic features (3) Anxiety disorder (4) Impulse control disorder KUNAL BEST MD Sep 20, 2019 07:18
[2019-09-20 07:59] VITALS: BP 124/80
[2019-09-20] MEDS: PANTOPRAZOLE 40 MG TABLET. PO SCH (08:00)
[2019-09-20] MEDS: BENZTROPINE MESYLATE 1 MG TABLET PO SCH ×2 (08:00→20:00)
[2019-09-20] MEDS: DOCUSATE SODIUM 100 MG CAPSULE PO SCH ×2 (08:00→20:00)
[2019-09-20] MEDS: METOPROLOL SUCC 24HR ER 25 MG TAB.ER.24H. PO SCH (08:01)
[2019-09-20] MEDS: glipiZIDE ER 2.5 MG TAB.ER.24 PO SCH (08:01)
[2019-09-20] MEDS: LITHIUM CARBONATE 300 MG TABLET PO SCH ×2 (08:01→20:00)
[2019-09-20 16:06] VITALS: BP 115/75
[2019-09-20] MEDS: DONEPEZIL HCL 10 MG TABLET PO SCH (19:59)
[2019-09-20] MEDS: cloZAPine 100 MG TABLET PO SCH (20:01)
[2019-09-20] MEDS: SIMVASTATIN 20 MG TABLET PO SCH (20:01)
[2019-09-20] MEDS: cloZAPine 25 MG TABLET PO SCH (20:01)
--- NOTE | 2019-09-20 21:57 | PDOC ---
Exam Note: Vincent Note: Please also refer to the separate dictated note~for this date of service dictated separately.~Patient seen individually. Discussed the patient with Nursing staff reviewed the chart.~Reviewed interim history and current functioning. Reviewed vital signs,~Labs/ Radiology~and current medications noted below. Continue current treatment with the changes noted in the dictated addendum note Assessment: Vital Signs/I&O: Vital Signs Date Time Temp Pulse Resp B/P (MAP) Pulse Ox O2 Delivery O2 Flow Rate FiO2 09/20/19 20:32 99.1 97 09/20/19 16:06 103 20 115/75 (88) 09/19/19 15:15 Room Air I & O 09/19/19 09/19/19 09/20/19 15:00 23:00 07:00 Intake Total 600 ml 240 ml Balance 600 ml 240 ml Labs: Laboratory Tests Test 09/20/19 07:49 09/20/19 16:44 09/20/19 19:04 Glucose (Fingerstick) 106 mg/dL (70-99) H 153 mg/dL (70-99) H 132 mg/dL (70-99) H Current Medications: I have reviewed the current psychotropics carefully including drug interactions. Risk benefit ratio favors no change other than as noted in my dictated progress note. Diagnosis: Problems: (1) Bipolar disorder with psychotic features (2) Schizoaffective disorder, bipolar type (3) Anxiety disorder (4) Impulse control disorder KUNAL BEST MD Sep 20, 2019 21:57
[2019-09-21] MEDS: LEVOTHYROXINE 100 MCG TABLET PO SCH (05:17)
[2019-09-21 05:51] VITALS: BP 118/73
[2019-09-21 05:55] VITALS: BP 118/73
[2019-09-21] MEDS: PANTOPRAZOLE 40 MG TABLET. PO SCH (08:49)
[2019-09-21] MEDS: glipiZIDE ER 2.5 MG TAB.ER.24 PO SCH (08:50)
[2019-09-21] MEDS: BENZTROPINE MESYLATE 1 MG TABLET PO SCH ×2 (08:50→19:30)
[2019-09-21] MEDS: LITHIUM CARBONATE 300 MG TABLET PO SCH ×2 (08:50→19:30)
[2019-09-21] MEDS: DOCUSATE SODIUM 100 MG CAPSULE PO SCH ×2 (08:50→19:31)
[2019-09-21] MEDS: METOPROLOL SUCC 24HR ER 25 MG TAB.ER.24H. PO SCH (08:50)
[2019-09-21] MEDS: CHOLECALCIFEROL (VITAMIN D3) 50,000 UNIT CAPSULE PO SCH (08:52)
[2019-09-21 10:00] LABS: BASO % 0 % (0-3); EOS % 0 % (0-3); HEMATOCRIT 37.3 % (39.0-53.0); HEMOGLOBIN 12.5 g/dL (13.0-17.5); LYMPH # 1.3 x10^3/uL (1.0-4.8); LYMPH % 16 % (24-48); MEAN CORPUSCULAR HEMOGLOBIN 29 pg (25-35); MEAN CORPUSCULAR HGB CONC 34 g/dL (31-37); MEAN CORPUSCULAR VOLUME 87 fL (79-100); MONO # 0.6 x10^3/uL (0.0-1.1); MONO % 7 % (0-9); NEUT # 6.3 x10^3uL (1.8-7.7); NEUT % 77 % (31-73); PLATELET COUNT 185 x10^3/uL (140-400); RED BLOOD COUNT 4.29 x10^6/uL (4.30-5.70); RED CELL DISTRIBUTION WIDTH 14.3 % (11.5-14.5); WHITE BLOOD COUNT 8.2 x10^3/uL (4.0-11.0)
[2019-09-21 10:14] LABS: ALBUMIN 2.7 g/dL (3.4-5.0); ALBUMIN/GLOBULIN RATIO 0.9 (1.0-1.7); CALCIUM 8.6 mg/dL (8.5-10.1); CREATININE 1.5 mg/dL (0.7-1.3); GFR 47.6; POTASSIUM 3.8 mmol/L (3.5-5.1); TOTAL BILIRUBIN 0.9 mg/dL (0.2-1.0); TOTAL PROTEIN 5.6 g/dL (6.4-8.2)
[2019-09-21 16:00] VITALS: BP 116/77
[2019-09-21] MEDS: cloZAPine 100 MG TABLET PO SCH (19:30)
[2019-09-21] MEDS: DONEPEZIL HCL 10 MG TABLET PO SCH (19:32)
[2019-09-21] MEDS: SIMVASTATIN 20 MG TABLET PO SCH (19:32)
[2019-09-21] MEDS: cloZAPine 25 MG TABLET PO SCH (19:32)
--- NOTE | 2019-09-21 21:59 | PDOC ---
Exam Note: Vincent Note: Please also refer to the separate dictated note~for this date of service dictated separately.~Patient seen individually. Discussed the patient with Nursing staff reviewed the chart.~Reviewed interim history and current functioning. Reviewed vital signs,~Labs/ Radiology~and current medications noted below. Continue current treatment with the changes noted in the dictated addendum note Assessment: Vital Signs/I&O: Vital Signs Date Time Temp Pulse Resp B/P (MAP) Pulse Ox O2 Delivery O2 Flow Rate FiO2 09/21/19 20:02 99.1 09/21/19 16:00 112 22 116/77 (90) 99 09/21/19 08:43 Room Air I & O 09/20/19 09/20/19 09/21/19 15:00 23:00 07:00 Intake Total 960 ml 480 ml Balance 960 ml 480 ml Labs: Laboratory Tests Test 09/21/19 09:30 09/21/19 19:12 White Blood Count 8.2 x10^3/uL (4.0-11.0) Red Blood Count 4.29 x10^6/uL (4.30-5.70) L Hemoglobin 12.5 g/dL (13.0-17.5) L Hematocrit 37.3 % (39.0-53.0) L Mean Corpuscular Volume 87 fL (79-100) Mean Corpuscular Hemoglobin 29 pg (25-35) Mean Corpuscular Hemoglobin Concent 34 g/dL (31-37) Red Cell Distribution Width 14.3 % (11.5-14.5) Platelet Count 185 x10^3/uL (140-400) Neutrophils (%) (Auto) 77 % (31-73) H Lymphocytes (%) (Auto) 16 % (24-48) L Monocytes (%) (Auto) 7 % (0-9) Eosinophils (%) (Auto) 0 % (0-3) Basophils (%) (Auto) 0 % (0-3) Neutrophils # (Auto) 6.3 x10^3uL (1.8-7.7) Lymphocytes # (Auto) 1.3 x10^3/uL (1.0-4.8) Monocytes # (Auto) 0.6 x10^3/uL (0.0-1.1) Eosinophils # (Auto) 0.0 x10^3/uL (0.0-0.7) Basophils # (Auto) 0.0 x10^3/uL (0.0-0.2) Sodium Level 143 mmol/L (136-145) Potassium Level 3.8 mmol/L (3.5-5.1) Chloride Level 108 mmol/L (98-107) H Carbon Dioxide Level 28 mmol/L (21-32) Anion Gap 7 (6-14) Blood Urea Nitrogen 15 mg/dL (8-26) Creatinine 1.5 mg/dL (0.7-1.3) H Estimated GFR (Cockcroft-Gault) 47.6 BUN/Creatinine Ratio 10 (6-20) Glucose Level 219 mg/dL (70-99) H Calcium Level 8.6 mg/dL (8.5-10.1) Total Bilirubin 0.9 mg/dL (0.2-1.0) Aspartate Amino Transferase (AST) 21 U/L (15-37) Alanine Aminotransferase (ALT) 91 U/L (16-63) H Alkaline Phosphatase 106 U/L (46-116) Total Protein 5.6 g/dL (6.4-8.2) L Albumin 2.7 g/dL (3.4-5.0) L Albumin/Globulin Ratio 0.9 (1.0-1.7) L Glucose (Fingerstick) 112 mg/dL (70-99) H Current Medications: I have reviewed the current psychotropics carefully including drug interactions. Risk benefit ratio favors no change other than as noted in my dictated progress note. Diagnosis: Problems: (1) Bipolar disorder with psychotic features (2) Schizoaffective disorder, bipolar type (3) Anxiety disorder (4) Impulse control disorder KUNAL BEST MD Sep 21, 2019 21:59
[2019-09-22] MEDS: LEVOTHYROXINE 100 MCG TABLET PO SCH (05:15)
[2019-09-22 06:04] VITALS: BP 128/82
--- NOTE | 2019-09-22 06:56 | PDOC ---
Exam Note: Vincent Note: This note is a late entry for 09/20/2019 covers elements not covered in my initial note. Subjective: The patient was seen on telehealth rounds in the evening of 09/20/2019 with Viv BAIRES. Per Viv BAIRES, the patient slept 8-1/2 hours previous night. He did well previous night, somewhat withdrawn during the day. In the morning he said he could not walk and states he fell to the floor, had a bowel movement on the floor. Thereafter he was walking quite well. He initially refused to use the headphones and music which seems to help him but later in the day he did use it. Review of Systems: No CV, , pulmonary, eye system symptoms on review. He complains of being tired. Mental Status Exam: Oriented reasonably. He is still fixated but only thing that will cure his problems is getting on barbiturates. I processed this with him. Abstraction fair. Computation impaired. Language function intact. Attention span is short. No psychotic symptoms or hallucinations noted. Laboratory Data: Reviewed. Impression: Schizoaffective disorder, bipolar type. Anxiety disorder unspecified. Impulse control disorder unspecified. Plan: Continue rest of the psychotropics unchanged. Assessment: Vital Signs/I&O: Vital Signs Date Time Temp Pulse Resp B/P (MAP) Pulse Ox O2 Delivery O2 Flow Rate FiO2 09/22/19 06:04 98.6 100 16 128/82 (97) 97 09/21/19 08:43 Room Air I & O 09/21/19 09/21/19 09/22/19 15:00 23:00 07:00 Intake Total 600 ml 480 ml Balance 600 ml 480 ml Labs: Laboratory Tests Test 09/21/19 09:30 09/21/19 19:12 White Blood Count 8.2 x10^3/uL (4.0-11.0) Red Blood Count 4.29 x10^6/uL (4.30-5.70) L Hemoglobin 12.5 g/dL (13.0-17.5) L Hematocrit 37.3 % (39.0-53.0) L Mean Corpuscular Volume 87 fL (79-100) Mean Corpuscular Hemoglobin 29 pg (25-35) Mean Corpuscular Hemoglobin Concent 34 g/dL (31-37) Red Cell Distribution Width 14.3 % (11.5-14.5) Platelet Count 185 x10^3/uL (140-400) Neutrophils (%) (Auto) 77 % (31-73) H Lymphocytes (%) (Auto) 16 % (24-48) L Monocytes (%) (Auto) 7 % (0-9) Eosinophils (%) (Auto) 0 % (0-3) Basophils (%) (Auto) 0 % (0-3) Neutrophils # (Auto) 6.3 x10^3uL (1.8-7.7) Lymphocytes # (Auto) 1.3 x10^3/uL (1.0-4.8) Monocytes # (Auto) 0.6 x10^3/uL (0.0-1.1) Eosinophils # (Auto) 0.0 x10^3/uL (0.0-0.7) Basophils # (Auto) 0.0 x10^3/uL (0.0-0.2) Sodium Level 143 mmol/L (136-145) Potassium Level 3.8 mmol/L (3.5-5.1) Chloride Level 108 mmol/L (98-107) H Carbon Dioxide Level 28 mmol/L (21-32) Anion Gap 7 (6-14) Blood Urea Nitrogen 15 mg/dL (8-26) Creatinine 1.5 mg/dL (0.7-1.3) H Estimated GFR (Cockcroft-Gault) 47.6 BUN/Creatinine Ratio 10 (6-20) Glucose Level 219 mg/dL (70-99) H Calcium Level 8.6 mg/dL (8.5-10.1) Total Bilirubin 0.9 mg/dL (0.2-1.0) Aspartate Amino Transferase (AST) 21 U/L (15-37) Alanine Aminotransferase (ALT) 91 U/L (16-63) H Alkaline Phosphatase 106 U/L (46-116) Total Protein 5.6 g/dL (6.4-8.2) L Albumin 2.7 g/dL (3.4-5.0) L Albumin/Globulin Ratio 0.9 (1.0-1.7) L Glucose (Fingerstick) 112 mg/dL (70-99) H Current Medications: I have reviewed the current psychotropics carefully including drug interactions. Risk benefit ratio favors no change other than as noted in my dictated progress note. Diagnosis: Problems: (1) Bipolar disorder with psychotic features (2) Schizoaffective disorder, bipolar type (3) Anxiety disorder (4) Impulse control disorder KUNAL BEST MD Sep 22, 2019 06:56
--- NOTE | 2019-09-22 07:13 | PDOC ---
Exam Note: Vincent Note: This note is a late entry for 09/21/2019 covers elements not covered in my initial note. Subjective: The patient was seen on telehealth rounds in the evening of 09/21/2019 with [facility] staff. Per [facility] RN, the patient slept 8 hours previous night. He was agitated in the morning, received Zyprexa p.r.n. He has refused to listen to music all day and when I addressed this with him during telehealth rounds he was agreeable to it. Review of Systems: Positive for tiredness. No CV, , pulmonary, eye system symptoms on review. Mental Status Exam: Oriented reasonably. Speech has some latency. Often response is monosyllabic, coherent, still fixated on wanting barbiturates. I processed this with him. Language function intact. Attention span is short. No suicidal or homicidal ideation. No psychotic symptoms or hallucinations noted. Laboratory Data: Reviewed. Impression: Schizoaffective disorder, bipolar type. Anxiety disorder u nspecified. Impulse control disorder unspecified. Plan: Continue rest of the psychotropics unchanged. Assessment: Vital Signs/I&O: Vital Signs Date Time Temp Pulse Resp B/P (MAP) Pulse Ox O2 Delivery O2 Flow Rate FiO2 09/22/19 06:04 98.6 100 16 128/82 (97) 97 09/21/19 08:43 Room Air I & O 09/21/19 09/21/19 09/22/19 15:00 23:00 07:00 Intake Total 600 ml 480 ml Balance 600 ml 480 ml Labs: Laboratory Tests Test 09/21/19 09:30 09/21/19 19:12 White Blood Count 8.2 x10^3/uL (4.0-11.0) Red Blood Count 4.29 x10^6/uL (4.30-5.70) L Hemoglobin 12.5 g/dL (13.0-17.5) L Hematocrit 37.3 % (39.0-53.0) L Mean Corpuscular Volume 87 fL (79-100) Mean Corpuscular Hemoglobin 29 pg (25-35) Mean Corpuscular Hemoglobin Concent 34 g/dL (31-37) Red Cell Distribution Width 14.3 % (11.5-14.5) Platelet Count 185 x10^3/uL (140-400) Neutrophils (%) (Auto) 77 % (31-73) H Lymphocytes (%) (Auto) 16 % (24-48) L Monocytes (%) (Auto) 7 % (0-9) Eosinophils (%) (Auto) 0 % (0-3) Basophils (%) (Auto) 0 % (0-3) Neutrophils # (Auto) 6.3 x10^3uL (1.8-7.7) Lymphocytes # (Auto) 1.3 x10^3/uL (1.0-4.8) Monocytes # (Auto) 0.6 x10^3/uL (0.0-1.1) Eosinophils # (Auto) 0.0 x10^3/uL (0.0-0.7) Basophils # (Auto) 0.0 x10^3/uL (0.0-0.2) Sodium Level 143 mmol/L (136-145) Potassium Level 3.8 mmol/L (3.5-5.1) Chloride Level 108 mmol/L (98-107) H Carbon Dioxide Level 28 mmol/L (21-32) Anion Gap 7 (6-14) Blood Urea Nitrogen 15 mg/dL (8-26) Creatinine 1.5 mg/dL (0.7-1.3) H Estimated GFR (Cockcroft-Gault) 47.6 BUN/Creatinine Ratio 10 (6-20) Glucose Level 219 mg/dL (70-99) H Calcium Level 8.6 mg/dL (8.5-10.1) Total Bilirubin 0.9 mg/dL (0.2-1.0) Aspartate Amino Transferase (AST) 21 U/L (15-37) Alanine Aminotransferase (ALT) 91 U/L (16-63) H Alkaline Phosphatase 106 U/L (46-116) Total Protein 5.6 g/dL (6.4-8.2) L Albumin 2.7 g/dL (3.4-5.0) L Albumin/Globulin Ratio 0.9 (1.0-1.7) L Glucose (Fingerstick) 112 mg/dL (70-99) H Current Medications: I have reviewed the current psychotropics carefully including drug interactions. Risk benefit ratio favors no change other than as noted in my dictated progress note. Diagnosis: Problems: (1) Bipolar disorder with psychotic features (2) Schizoaffective disorder, bipolar type (3) Impulse control disorder (4) Anxiety disorder KUNAL BEST MD Sep 22, 2019 07:13
[2019-09-22] MEDS: LITHIUM CARBONATE 300 MG TABLET PO SCH ×2 (08:31→19:44)
[2019-09-22] MEDS: BENZTROPINE MESYLATE 1 MG TABLET PO SCH ×2 (08:31→19:44)
[2019-09-22] MEDS: DOCUSATE SODIUM 100 MG CAPSULE PO SCH ×2 (08:31→19:44)
[2019-09-22] MEDS: PANTOPRAZOLE 40 MG TABLET. PO SCH (08:31)
[2019-09-22] MEDS: glipiZIDE ER 2.5 MG TAB.ER.24 PO SCH (08:43)
[2019-09-22] MEDS: METOPROLOL SUCC 24HR ER 25 MG TAB.ER.24H. PO SCH (08:44)
[2019-09-22 15:29] VITALS: BP 113/74
[2019-09-22] MEDS: DONEPEZIL HCL 10 MG TABLET PO SCH (19:44)
[2019-09-22] MEDS: SIMVASTATIN 20 MG TABLET PO SCH (19:45)
[2019-09-22] MEDS: cloZAPine 25 MG TABLET PO SCH (19:45)
[2019-09-22] MEDS: cloZAPine 100 MG TABLET PO SCH (19:46)
--- NOTE | 2019-09-22 22:14 | PDOC ---
Exam Note: Vincent Note: Please also refer to the separate dictated note~for this date of service dictated separately.~Patient seen individually. Discussed the patient with Nursing staff reviewed the chart.~Reviewed interim history and current functioning. Reviewed vital signs,~Labs/ Radiology~and current medications noted below. Continue current treatment with the changes noted in the dictated addendum note Assessment: Vital Signs/I&O: Vital Signs Date Time Temp Pulse Resp B/P (MAP) Pulse Ox O2 Delivery O2 Flow Rate FiO2 09/22/19 20:03 99.0 96 09/22/19 15:29 114 20 113/74 (87) 09/22/19 08:43 Room Air I & O 09/21/19 09/21/19 09/22/19 15:00 23:00 07:00 Intake Total 600 ml 480 ml Balance 600 ml 480 ml Labs: Laboratory Tests Test 09/22/19 19:04 Glucose (Fingerstick) 205 mg/dL (70-99) H Current Medications: I have reviewed the current psychotropics carefully including drug interactions. Risk benefit ratio favors no change other than as noted in my dictated progress note. Diagnosis: Problems: (1) Schizoaffective disorder, bipolar type (2) Bipolar disorder with psychotic features (3) Anxiety disorder (4) Impulse control disorder KUNAL BEST MD Sep 22, 2019 22:14
[2019-09-23] MEDS: LEVOTHYROXINE 100 MCG TABLET PO SCH (05:30)
[2019-09-23 06:01] LABS: BASO % 0 % (0-3); EOS % 0 % (0-3); HEMATOCRIT 39.5 % (39.0-53.0); HEMOGLOBIN 13.1 g/dL (13.0-17.5); LYMPH % 23 % (24-48); MEAN CORPUSCULAR HEMOGLOBIN 29 pg (25-35); MEAN CORPUSCULAR HGB CONC 33 g/dL (31-37); MEAN CORPUSCULAR VOLUME 88 fL (79-100); MONO # 0.7 x10^3/uL (0.0-1.1); MONO % 8 % (0-9); NEUT % 69 % (31-73); PLATELET COUNT 203 x10^3/uL (140-400); RED CELL DISTRIBUTION WIDTH 14.6 % (11.5-14.5); WHITE BLOOD COUNT 8.7 x10^3/uL (4.0-11.0)
[2019-09-23 06:05] VITALS: BP 123/80
[2019-09-23] MEDS: DOCUSATE SODIUM 100 MG CAPSULE PO SCH ×2 (08:01→19:43)
[2019-09-23] MEDS: BENZTROPINE MESYLATE 1 MG TABLET PO SCH ×2 (08:01→19:43)
[2019-09-23] MEDS: PANTOPRAZOLE 40 MG TABLET. PO SCH (08:01)
[2019-09-23] MEDS: LITHIUM CARBONATE 300 MG TABLET PO SCH ×2 (08:01→19:43)
[2019-09-23] MEDS: METOPROLOL SUCC 24HR ER 25 MG TAB.ER.24H. PO SCH (08:01)
[2019-09-23] MEDS: glipiZIDE ER 2.5 MG TAB.ER.24 PO SCH (08:02)
--- NOTE | 2019-09-23 10:39 | TX PLAN ---
Interdisciplinary Tx Plan Admission Information Aug 09, 2019 at 22:33 Legal Status (on Admission): Voluntary DPOA/Guardian Name: Elizabeth Alexandra ([employer] Operator) Contact Other Contact Name: Grand Mullen Other Contact Verified Code Status: Full Code Allergies: Coded Allergies: No Known Drug Allergies (Unverified , 01/09/19) Diagnoses Primary Diagnosis: Schizoaffective D/O, Bipolar type; anxiety unspecified; impulse control d/o Reasons for Admission: Depressed, Angry, Anxiety/Panic, Suicidal ideation, Poor impulse control Problem in Patient's Words: N/A Additional Admission Comments: According to the intake, pt is refusing medications, refusing meals because he wants to , increase in agitation and SI. Problems Active Problems: Non-compliant with medications Refusal of meds Somewhat demanding Swallow concerns Inactive Problems: Appropriate during Covoid isolation Pt Strengths/Limitations Ability for [place]: Poor Cognitive Functioning/Ability: Fair Communication Skills/Ability: Fair Financial Resources: Fair Insight/Judgement: Poor Intellectual Ability: Fair Physical Health: Poor Social Skills: Fair Stability in Family: Poor Stability in School/Work: Poor Verbal Skills: Fair Discharge Criteria Discharge Criteria: Able meet basic life need, Adequate arrangements @DC, Improved behavior, Improved mood/thought Preliminary Discharge Plan Preliminary DC Plan: Current Living Arrange., Outpatient Followup Special Precautions Special Precautions: Swallowing/Choking Fall Risk: Low Initial D/C Plan Pt will plan to return to [facility] in [place] Identified Discharge Needs: Continued psychiatric services Safety Plan Currently Utilized Resources Currently Utilized Resources/P: Continued PCP services Does have a psychiatrist Identified Problems/Hx/Goals Objectives/Short-Term Goals Short Term Goals: Medication Stabilization, Monitor Med Effects, No Suicidal/Malachi. ideation, Promote Coping Skill Short Term Goals in Patient's: N/A Interventions/Frequency Staff Interventions/Frequency&: Psychiatrist to assess pt at least 3x per week. Social Work to assess pt at least 2x per week. Nursing to assess bx, medications and complete 15 minute checks daily. Encourage group particpation in activities or 1:1 engagement dependent on Activity Dept assessment and goals. 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 Did not work afterwards due to his diagnosis. Education: [facility] Follow-up Primary Care Physician Psychiatrist Treatment Plan Explained Patient/Client Delivery Manager had this treatment plan explained to him/her as indicated by the signature below and has been given the opportunity to ask questions and make suggestions: Date: Patient/Client Delivery Manager Signature: Status Update Update WEEKLY NOTE/UPDATE: Luis Carlos is averaging 80% of meal intakes and 7.5 hours of sleep at night. He is somewhat withdrawn but is medication compliant. Luis Carlos reports that taking Zydis at night has proved helpful with his anxiety and sleep. Luis Carlos was negative for Covid on 09/21 and will be re-tested on 09/23 as [facility] requires two negative Covid swabs within 72 hours of discharge. Luis Carlos is stable for discharge once unit quarantine is completed. SW will assist with upcoming d/c. BERTHA PATEL Sep 23, 2019 10:39
[2019-09-23 15:29] VITALS: BP 108/72
[2019-09-23] MEDS: cloZAPine 25 MG TABLET PO SCH (19:42)
[2019-09-23] MEDS: cloZAPine 100 MG TABLET PO SCH (19:42)
[2019-09-23] MEDS: SIMVASTATIN 20 MG TABLET PO SCH (19:43)
[2019-09-23] MEDS: DONEPEZIL HCL 10 MG TABLET PO SCH (19:44)
--- NOTE | 2019-09-23 22:00 | PDOC ---
Exam Note: Vincent Note: Please also refer to the separate dictated note~for this date of service dictated separately.~Patient seen individually. Discussed the patient with Nursing staff reviewed the chart.~Reviewed interim history and current functioning. Reviewed vital signs,~Labs/ Radiology~and current medications noted below. Continue current treatment with the changes noted in the dictated addendum note Assessment: Vital Signs/I&O: Vital Signs Date Time Temp Pulse Resp B/P (MAP) Pulse Ox O2 Delivery O2 Flow Rate FiO2 09/23/19 19:44 98.8 99 09/23/19 15:29 95 16 108/72 (84) 09/23/19 06:05 Room Air I & O 09/22/19 09/22/19 09/23/19 15:00 23:00 07:00 Intake Total 1072 ml 840 ml Balance 1072 ml 840 ml Labs: Laboratory Tests Test 09/23/19 05:45 White Blood Count 8.7 x10^3/uL (4.0-11.0) Red Blood Count 4.50 x10^6/uL (4.30-5.70) Hemoglobin 13.1 g/dL (13.0-17.5) Hematocrit 39.5 % (39.0-53.0) Mean Corpuscular Volume 88 fL (79-100) Mean Corpuscular Hemoglobin 29 pg (25-35) Mean Corpuscular Hemoglobin Concent 33 g/dL (31-37) Red Cell Distribution Width 14.6 % (11.5-14.5) H Platelet Count 203 x10^3/uL (140-400) Neutrophils (%) (Auto) 69 % (31-73) Lymphocytes (%) (Auto) 23 % (24-48) L Monocytes (%) (Auto) 8 % (0-9) Eosinophils (%) (Auto) 0 % (0-3) Basophils (%) (Auto) 0 % (0-3) Neutrophils # (Auto) 6.0 x10^3uL (1.8-7.7) Lymphocytes # (Auto) 2.0 x10^3/uL (1.0-4.8) Monocytes # (Auto) 0.7 x10^3/uL (0.0-1.1) Eosinophils # (Auto) 0.0 x10^3/uL (0.0-0.7) Basophils # (Auto) 0.0 x10^3/uL (0.0-0.2) Current Medications: I have reviewed the current psychotropics carefully including drug interactions. Risk benefit ratio favors no change other than as noted in my dictated progress note. Diagnosis: Problems: (1) Schizoaffective disorder, bipolar type (2) Bipolar disorder with psychotic features (3) Anxiety disorder (4) Impulse control disorder KUNAL BSET MD Sep 23, 2019 22:00
[2019-09-24] MEDS: LEVOTHYROXINE 100 MCG TABLET PO SCH (05:36)
[2019-09-24 06:03] VITALS: BP 132/86
[2019-09-24] MEDS: DOCUSATE SODIUM 100 MG CAPSULE PO SCH ×2 (08:57→19:51)
[2019-09-24] MEDS: BENZTROPINE MESYLATE 1 MG TABLET PO SCH ×2 (08:57→19:51)
[2019-09-24] MEDS: METOPROLOL SUCC 24HR ER 25 MG TAB.ER.24H. PO SCH (08:57)
[2019-09-24] MEDS: glipiZIDE ER 2.5 MG TAB.ER.24 PO SCH (08:57)
[2019-09-24] MEDS: LITHIUM CARBONATE 300 MG TABLET PO SCH ×2 (08:57→19:50)
[2019-09-24] MEDS: PANTOPRAZOLE 40 MG TABLET. PO SCH (08:57)
[2019-09-24 16:06] VITALS: BP 111/73
[2019-09-24] MEDS: cloZAPine 25 MG TABLET PO SCH (19:49)
[2019-09-24] MEDS: DONEPEZIL HCL 10 MG TABLET PO SCH (19:49)
[2019-09-24] MEDS: SIMVASTATIN 20 MG TABLET PO SCH (19:49)
[2019-09-24] MEDS: cloZAPine 100 MG TABLET PO SCH (19:49)
--- NOTE | 2019-09-24 22:21 | PDOC ---
Exam Note: Vincent Note: Please also refer to the separate dictated note~for this date of service dictated separately.~Patient seen individually. Discussed the patient with Nursing staff reviewed the chart.~Reviewed interim history and current functioning. Reviewed vital signs,~Labs/ Radiology~and current medications noted below. Continue current treatment with the changes noted in the dictated addendum note Assessment: Vital Signs/I&O: Vital Signs Date Time Temp Pulse Resp B/P (MAP) Pulse Ox O2 Delivery O2 Flow Rate FiO2 09/24/19 20:24 98.8 97 09/24/19 16:06 96 18 111/73 (86) Room Air I & O 09/23/19 09/23/19 09/24/19 14:59 22:59 06:59 Intake Total 600 ml 600 ml Balance 600 ml 600 ml Labs: Laboratory Tests Test 09/24/19 07:35 Glucose (Fingerstick) 105 mg/dL (70-99) H Current Medications: I have reviewed the current psychotropics carefully including drug interactions. Risk benefit ratio favors no change other than as noted in my dictated progress note. Diagnosis: Problems: (1) Bipolar disorder with psychotic features (2) Schizoaffective disorder, bipolar type (3) Anxiety disorder (4) Impulse control disorder KUNAL BEST MD Sep 24, 2019 22:21
[2019-09-25] MEDS: LEVOTHYROXINE 100 MCG TABLET PO SCH (05:36)
[2019-09-25 05:52] VITALS: BP 134/61
--- NOTE | 2019-09-25 07:06 | PDOC ---
Exam Note: Vincent Note: This note is a late entry for 09/22/2019 covers elements not covered in my initial note. Subjective: The patient was seen on telehealth rounds in the evening of 09/22/2019 with [facility] BAIRES. The patient slept 7 hours previous night. He has been agitated at times. Received Zyprexa Zydis p.r.n. Review of Systems: No CV, , pulmonary, eye system symptoms on review. Mental Status Exam: Oriented reasonably. Speech is coherent, has some latency. He is fixated on wanting barbiturates as I met with him on audiovisual rounds in the evening. Language function intact. Attention span is short. No suicidal or homicidal ideation. No psychotic symptoms or hallucinations noted. Laboratory Data: Reviewed. Impression: Schizoaffective disorder, bipolar type. Anxiety disorder unspecified. Impulse control disorder unspecified. Plan: Continue rest of the psychotropics unchanged. Assessment: Vital Signs/I&O: Vital Signs Date Time Temp Pulse Resp B/P (MAP) Pulse Ox O2 Delivery O2 Flow Rate FiO2 09/25/19 05:52 98.7 108 18 134/61 (85) 100 09/24/19 16:06 Room Air I & O 09/24/19 09/24/19 09/25/19 14:59 22:59 06:59 Intake Total 840 ml 720 ml Balance 840 ml 720 ml Labs: Laboratory Tests Test 09/24/19 07:35 09/24/19 10:20 Glucose (Fingerstick) 105 mg/dL (70-99) H Coronavirus (PCR) Not detected (Not Detected) Current Medications: I have reviewed the current psychotropics carefully including drug interactions. Risk benefit ratio favors no change other than as noted in my dictated progress note. Diagnosis: Problems: (1) Bipolar disorder with psychotic features (2) Schizoaffective disorder, bipolar type (3) Anxiety disorder (4) Impulse control disorder KUNAL BEST MD Sep 25, 2019 07:06
--- NOTE | 2019-09-25 07:22 | PDOC ---
Exam Note: Vincent Note: This note is a late entry for 09/23/2019 covers elements not covered in my initial note. Subjective: The patient was evaluated in the morning of 09/23/2019 with treatment team meeting with Becka (social service staff) and Yung BAIRES. The patient was also seen on telehealth rounds in the evening of 09/23/2019 with Nikhil BAIRES. Absolute neutrophil count is unremarkable. WBC 8.7, neutrophil 69%. He is tolerating the Clozaril. His second COVID test was negative on 09/21. He is still fixated on wanting barbiturates as I met with him, complains of tiredness, does listen to music on flaco, which seems to distract him. Review of Systems: Positive for tiredness. No CV, , pulmonary, eye system symptoms on review. Mental Status Exam: Oriented reasonably. Speech coherent. Often response is monosyllabic, coherent, still fixated on wanting barbiturates. Language function intact. Attention span is short. No suicidal or homicidal ideation. Laboratory Data: Reviewed. Impression: Schizoaffective disorder, bipolar type. Anxiety disorder unspecified. Impulse control disorder unspecified. Plan: Continue rest of the psychotropics unchanged. Assessment: Vital Signs/I&O: Vital Signs Date Time Temp Pulse Resp B/P (MAP) Pulse Ox O2 Delivery O2 Flow Rate FiO2 09/25/19 05:52 98.7 108 18 134/61 (85) 100 09/24/19 16:06 Room Air I & O 09/24/19 09/24/19 09/25/19 15:00 23:00 07:00 Intake Total 840 ml 720 ml Balance 840 ml 720 ml Labs: Laboratory Tests Test 09/24/19 07:35 09/24/19 10:20 Glucose (Fingerstick) 105 mg/dL (70-99) H Coronavirus (PCR) Not detected (Not Detected) Current Medications: I have reviewed the current psychotropics carefully including drug interactions. Risk benefit ratio favors no change other than as noted in my dictated progress note. Diagnosis: Problems: (1) Schizoaffective disorder, bipolar type (2) Bipolar disorder with psychotic features (3) Anxiety disorder (4) Impulse control disorder KUNAL BEST MD Sep 25, 2019 07:22
--- NOTE | 2019-09-25 07:29 | PDOC ---
Exam Note: Vincent Note: This note is a late entry for 09/24/2019 covers elements not covered in my initial note. Subjective: The patient was seen on telehealth rounds in the evening of 09/24/2019 with Lorena BAIRES. The patient has had low-grade temperature 99 degrees F. No cough. He was agitated middle of last night at 12.40 a.m., r eceived Zyprexa p.r.n. because he could not sleep. He slept 6-1/4 hours previous night but he is again fixated wanting barbiturates in the evening as I met with him on telehealth rounds but does agree to listen to music to distract himself. Review of Systems: Positive for tiredness. No CV, , pulmonary, eye system symptoms on review. Mental Status Exam: Oriented reasonably. Speech coherent, has some latency. Abstraction is fair. Computation is impaired. Language function intact. Attention span is short. No clear suicidal or homicidal ideation or psychotic symptoms. Laboratory Data: Reviewed. Impression: Schizoaffective disorder, bipolar type. Anxiety disorder unspecified. Impulse control disorder unspecified. Plan: Continue rest of the psychotropics unchanged. Assessment: Vital Signs/I&O: Vital Signs Date Time Temp Pulse Resp B/P (MAP) Pulse Ox O2 Delivery O2 Flow Rate FiO2 09/25/19 05:52 98.7 108 18 134/61 (85) 100 09/24/19 16:06 Room Air I & O 09/24/19 09/24/19 09/25/19 15:00 23:00 07:00 Intake Total 840 ml 720 ml Balance 840 ml 720 ml Labs: Laboratory Tests Test 09/24/19 07:35 09/24/19 10:20 Glucose (Fingerstick) 105 mg/dL (70-99) H Coronavirus (PCR) Not detected (Not Detected) Current Medications: I have reviewed the current psychotropics carefully including drug interactions. Risk benefit ratio favors no change other than as noted in my dictated progress note. Diagnosis: Problems: (1) Schizoaffective disorder, bipolar type (2) Bipolar disorder with psychotic features (3) Anxiety disorder (4) Impulse control disorder KUNAL BEST MD Sep 25, 2019 07:29
[2019-09-25] MEDS: METOPROLOL SUCC 24HR ER 25 MG TAB.ER.24H. PO SCH (08:29)
[2019-09-25] MEDS: DOCUSATE SODIUM 100 MG CAPSULE PO SCH ×2 (08:29→20:17)
[2019-09-25] MEDS: BENZTROPINE MESYLATE 1 MG TABLET PO SCH ×2 (08:29→20:17)
[2019-09-25] MEDS: LITHIUM CARBONATE 300 MG TABLET PO SCH ×2 (08:29→20:18)
[2019-09-25] MEDS: glipiZIDE ER 2.5 MG TAB.ER.24 PO SCH (08:30)
[2019-09-25] MEDS: PANTOPRAZOLE 40 MG TABLET. PO SCH (08:30)
[2019-09-25 15:22] VITALS: BP 123/80
[2019-09-25] MEDS ORDERED: CLOZ25TA PO (17:41)
[2019-09-25] MEDS ORDERED: LITH300T3 PO (17:43)
[2019-09-25] MEDS ORDERED: BENZ1TAB5 PO (17:45)
[2019-09-25] MEDS ORDERED: OLAN5TAB99 PO (18:27)
[2019-09-25] MEDS: SIMVASTATIN 20 MG TABLET PO SCH (20:17)
[2019-09-25] MEDS: cloZAPine 25 MG TABLET PO SCH (20:18)
[2019-09-25] MEDS: cloZAPine 100 MG TABLET PO SCH (20:18)
[2019-09-25] MEDS: DONEPEZIL HCL 10 MG TABLET PO SCH (20:18)
--- NOTE | 2019-09-25 21:52 | PDOC ---
Exam Note: Vincent Note: Please also refer to the separate dictated note~for this date of service dictated separately.~Patient seen individually. Discussed the patient with Nursing staff reviewed the chart.~Reviewed interim history and current functioning. Reviewed vital signs,~Labs/ Radiology~and current medications noted below. Continue current treatment with the changes noted in the dictated addendum note Assessment: Vital Signs/I&O: Vital Signs Date Time Temp Pulse Resp B/P (MAP) Pulse Ox O2 Delivery O2 Flow Rate FiO2 09/25/19 20:27 98.7 99 09/25/19 15:22 109 18 123/80 (94) 09/25/19 08:19 Room Air I & O 09/24/19 09/24/19 09/25/19 15:00 23:00 07:00 Intake Total 840 ml 720 ml Balance 840 ml 720 ml Labs: Laboratory Tests Test 09/25/19 19:14 Glucose (Fingerstick) 152 mg/dL (70-99) H Current Medications: I have reviewed the current psychotropics carefully including drug interactions. Risk benefit ratio favors no change other than as noted in my dictated progress note. Diagnosis: Problems: (1) Bipolar disorder with psychotic features (2) Schizoaffective disorder, bipolar type (3) Anxiety disorder (4) Impulse control disorder KUNAL BEST MD Sep 25, 2019 21:52
[2019-09-26 06:17] VITALS: BP 125/78
[2019-09-26] MEDS: LEVOTHYROXINE 100 MCG TABLET PO SCH (06:17)
--- NOTE | 2019-09-26 06:43 | PDOC ---
Exam Note: Vincent Note: This note is a late entry for 09/25/2019 covers elements not covered in my initial note. Subjective: The patient was seen on telehealth rounds in the evening of 09/25/2019 with Lorena BAIRES. He slept 6-3/4 hours previous night. Previous evening he was complaining of having some twitching and asking the nursing staff for Zyprexa p.r.n. Alphonso BAIRES offered the patient some Cogentin if he was having some extrapyramidal side effects but in fact on assessment there are no EPS and he has had no symptoms during the day today. He remains in his room, somewhat withdrawn but as I met with him on telehealth rounds in the evening he spontaneously told me that he was a little better. He has been listening to music on the flaco, slept in his chair. Review of Systems: No CV, , pulmonary, eye system symptoms on review. Mental Status Exam: Oriented reasonably. Speech coherent. Abstraction is fair. Computation is impaired. Language function intact. Attention span is short. No clear suicidal or homicidal ideation or psychotic symptoms. Laboratory Data: Reviewed. Impression: Schizoaffective disorder, bipolar type. Anxiety disorder unspecified. Impulse control disorder unspecified. Plan: Transition the patient back to his fdc. He is tolerating the Clozaril and the rest of the psychotropics. He is less fixated on wanting barbiturates today. Assessment: Vital Signs/I&O: Vital Signs Date Time Temp Pulse Resp B/P (MAP) Pulse Ox O2 Delivery O2 Flow Rate FiO2 09/26/19 06:17 98.7 97 16 125/78 (94) 98 09/25/19 08:19 Room Air I & O 09/25/19 09/25/19 09/26/19 15:00 23:00 07:00 Intake Total 1020 ml 480 ml Balance 1020 ml 480 ml Labs: Laboratory Tests Test 09/25/19 19:14 Glucose (Fingerstick) 152 mg/dL (70-99) H Current Medications: I have reviewed the current psychotropics carefully including drug interactions. Risk benefit ratio favors no change other than as noted in my dictated progress note. Diagnosis: Problems: (1) Schizoaffective disorder, bipolar type (2) Bipolar disorder with psychotic features (3) Anxiety disorder (4) Impulse control disorder KUNAL BEST MD Sep 26, 2019 06:43
[2019-09-26] MEDS: LITHIUM CARBONATE 300 MG TABLET PO SCH (07:33)
[2019-09-26 07:34] VITALS: BP 125/78
[2019-09-26] MEDS: METOPROLOL SUCC 24HR ER 25 MG TAB.ER.24H. PO SCH (07:34)
[2019-09-26] MEDS: PANTOPRAZOLE 40 MG TABLET. PO SCH (07:34)
[2019-09-26] MEDS: BENZTROPINE MESYLATE 1 MG TABLET PO SCH (07:34)
[2019-09-26] MEDS: DOCUSATE SODIUM 100 MG CAPSULE PO SCH (07:34)
[2019-09-26] MEDS: glipiZIDE ER 2.5 MG TAB.ER.24 PO SCH (07:35)
--- NOTE | 2019-09-26 21:51 | PDOC ---
Exam Note: Vincent Note: Please also refer to the separate dictated note~for this date of service dictated separately.~Patient seen individually. Discussed the patient with Nursing staff reviewed the chart.~Reviewed interim history and current functioning. Reviewed vital signs,~Labs/ Radiology~and current medications noted below. Continue current treatment with the changes noted in the dictated addendum note Assessment: Vital Signs/I&O: Vital Signs Date Time Temp Pulse Resp B/P (MAP) Pulse Ox O2 Delivery O2 Flow Rate FiO2 09/26/19 09:11 97.9 98 09/26/19 07:34 97 125/78 09/26/19 06:17 16 09/25/19 08:19 Room Air I & O 09/25/19 09/25/19 09/26/19 15:00 23:00 07:00 Intake Total 1020 ml 480 ml Balance 1020 ml 480 ml Labs: Laboratory Tests Test 09/26/19 07:56 Glucose (Fingerstick) 131 mg/dL (70-99) H Current Medications: I have reviewed the current psychotropics carefully including drug interactions. Risk benefit ratio favors no change other than as noted in my dictated progress note. Diagnosis: Problems: (1) Schizoaffective disorder, bipolar type (2) Bipolar disorder with psychotic features (3) Anxiety disorder (4) Impulse control disorder KUNAL BEST MD Sep 26, 2019 21:51
--- NOTE | 2019-09-28 23:31 | DS ---
DATE OF DISCHARGE: 09/26/2019 DISCHARGE SUMMARY/PSYCHIATRIC PROGRESS NOTE This late entry for date of service 09/26/2019 covers the elements not covered in my initial note. REASON FOR ADMISSION: Please refer to the admission history for details. Briefly, the patient is a 63-year-old male referred to us from [facility] by his primary care physician on account of an acute exacerbation of psychotic symptoms within the context of his schizoaffective disorder, bipolar type; anxiety disorder and impulse control disorder. He was refusing medications at the long-term, refusing meals because he wanted to . He is increasingly agitated, verbally aggressive, and voicing suicidal ideation. The patient's behaviors were dangerous, unmanageable at the facility. He is quite paranoid, psychotic as well. He had failed outpatient psychiatric interventions resulting in this referral. SIGNIFICANT FINDINGS AND CLINICAL COURSE: Following admission, the patient was seen daily individually by myself from a psychiatric standpoint, medical followup per Dr. Vera/Dr. Muhammad. The patient was paranoid, psychotic, fixated and obsessed about wanting barbiturates. Adjustments were made in his psychotropics. Clozaril was gradually increased while the weekly CBC, absolute neutrophil counts were monitored. He finally appeared to do better on a combination of Clozaril 650 mg at bedtime, Cogentin 1 mg b.i.d., Aricept 10 mg at bedtime. [place] was adjusted and he had a therapeutic level of 0.7 on 300 mg daily and 150 at bedtime, remained on Provera 5 mg b.i.d. for his past history of sexually aggressive behaviors. Haldol was p.r.n., Zyprexa p.r.n. REVIEW OF SYSTEMS: Prior to discharge, no CV, , pulmonary, eye system symptoms on review. MENTAL STATUS EXAM: Reasonably oriented. Speech has some latency, often responses monosyllabic. Abstraction fair, computation impaired, language function intact, attention span short. Mood and affect still withdrawn, but he would do better when you listen to music on the flaco provided to him. CONDITION AT DISCHARGE: Improved. FINAL DIAGNOSES: Schizoaffective disorder, bipolar type, mixed with psychotic features, in partial remission; anxiety disorder, unspecified; impulse control disorder, unspecified. Rest unchanged from admission. DISCHARGE MEDICATIONS: Please refer to the MRAD. DISCHARGE INSTRUCTIONS: Outpatient psychiatric and medical followup at the long-term with his primary care physician. The patient needs weekly CBC, CMP and monthly chemistry profile as followup on the Clozaril labs. KUNAL BEST MD DR: MARRY/merced JOB#: [id number] / [id number]
== END 2019-09-26 10:45 | DRG 885 ==
LOC: ER 19:02 → GEROPSY 22:33
PROVIDERS: ADMIT Psychiatry & Neurology Psychiatry; ATTEND Psychiatry & Neurology Psychiatry
DX: F25.0 Schizoaffective disorder, bipolar type (principal); N17.0 Acute kidney failure with tubular necrosis; R45.851 Suicidal ideations; D64.9 Anemia, unspecified; D72.829 Elevated white blood cell count, unspecified; E03.9 Hypothyroidism, unspecified; E11.22 Type 2 diabetes mellitus with diabetic chronic kidney disease; E78.00 Pure hypercholesterolemia, unspecified; E78.5 Hyperlipidemia, unspecified; E86.0 Dehydration; F01.50 Vascular dementia, unspecified severity, without behavioral disturbance, psychotic disturbance, mood disturbance, and anxiety; F02.80 Dementia in other diseases classified elsewhere, unspecified severity, without behavioral disturbance, psychotic disturbance, mood disturbance, and anxiety; F41.9 Anxiety disorder, unspecified; F63.9 Impulse disorder, unspecified; G30.9 Alzheimer's disease, unspecified; I12.9 Hypertensive chronic kidney disease with stage 1 through stage 4 chronic kidney disease, or unspecified chronic kidney disease; K21.9 Gastro-esophageal reflux disease without esophagitis; N18.9 Chronic kidney disease, unspecified; N40.1 Benign prostatic hyperplasia with lower urinary tract symptoms; R13.10 Dysphagia, unspecified; Z79.899 Other long term (current) drug therapy; Z87.440 Personal history of urinary (tract) infections; Z90.49 Acquired absence of other specified parts of digestive tract; G47.00 Insomnia, unspecified; L25.9 Unspecified contact dermatitis, unspecified cause; M19.90 Unspecified osteoarthritis, unspecified site; R33.8 Other retention of urine; Z20.828 Contact with and (suspected) exposure to other viral communicable diseases; R79.82 Elevated C-reactive protein (CRP)
CPT/HCPCS: 36415; 70450; 71045; 72125; 80048; 80053; 80061; 80076; 80178; 80307; 81001; 82306; 82550; 82607; 82947; 83036; 83540; 83550; 83690; 83735; 83880; 84436; 84443; 84480; 84484; 85007; 85025; 85379; 85610; 85730; 86140; 86592; 93005; 96360; J3420; J7120; P9612; 92610; 97110; 97530; 97535; 99285-25; U0003-CS

== ENCOUNTER 2020-02-24 21:26 | Inpatient (IN) | payer MEDICARE, MEDICAID ==
[~2020-02-24] VITALS: Ht 170.2 cm; Wt 55.2 kg
[2020-02-24 21:00] VITALS: BP 117/74
[~2020-02-24 21:26] MED LIST changes: +ACET650T6 PO; +BENZ2TAB5 PO; +CLOZ25TA PO; +DOCU100C28 PO; +HALO2TAB PO; +LITH300T3 PO; +OLAN5TAB99 PO; -PANT40TA5 PO; +PANT40TA6 PO
[2020-02-24] MEDS ORDERED: MAG HYDROX/AL HYDROX/SIMETH 30 ML ORAL.SUSP PO PRN (21:45)
[2020-02-24] MEDS ORDERED: METHYL SALICYLATE/MENTHOL TOPICAL OINTMENT 57GM TUBE. TP PRN (21:45)
[2020-02-24] MEDS ORDERED: MAGNESIUM HYDROXIDE 2,400 MG/30 ML ORAL.SUSP. PO PRN (21:45)
--- NOTE | 2020-02-24 21:57 | NUR ---
Admission Note with Justification for Admission to [facility] Patient admitted to [facility] for protective oversight for emergency stabilization of acute psychiatric crisis. Pt admitted from: [facility] in [place], [place] Mode of arrival: Van transportation Accompanied By: Van transportation personnel did not come into building. [facility] staff went to front door to picking crew supervisor patient. Precipitating behaviors that initiated intake and admission: It was reported that patient has been stating that he wishes to . He has been non-compliant with medications, hitting the staff and lab personnel. He was agitated, yelling and cursing at staff. He has also been isolating himself. Patient had been recently discharged from Hospice for Failure to Thrive. Description of failure of out patient attempts at stabilization in previous setting list behavior and medication trials: Patient has been to [facility] in 2019 and then 2019, he has had medications changes and PRN ativan. Patient was sent to ER. Behaviors and assessment findings upon admission: Patient attempted to hit DOOR PANELER in the elevator on the way to [facility] unit. Patient assisted to chair in [facility] by staff x3 where he continued to be combative, kicking at and attempting to hit staff. Vital signs obtained, patient was changed into hospital gown. Patient had a bandaid on his R buttock and one on his L Deltoid that appeared to be injection sites the rest of his skin is intact. Patient is very thin and appears underweight for his height. It is unknown if patient received his HS medications as no report was called. Patient had been in ER since the afternoon, according to his facility. Facility also stated that patient has been refusing his medications "most of the time". Since patients arrival, he has been yelling "I need barbiturates" and "give me my medications". Patient was moved from quiet room/hallway to his room and then he continued to attempt to get up and set the bed alarm off. Patient oriented to self and place, stated year was 2019. He also stated that he was told he was "coming here to get barbiturates". Patient reported that he has already eaten dinner at the hospital. He denied making SI statements when asked. Plan: Admit for protective oversight for adjustment and stabilization of medications, behaviors and mood. Intense treatment regimen including groups, medication adjustments, therapy, consistent regimen for ADL's, self care, and sleep hygiene. Daily monitoring by Inpatient staff, Psychiatry, and Medical Physician.
--- NOTE | 2020-02-24 22:11 | NUR ---
Patient restless and continued to set his bed alarm off. Patient was provided education by nurse regarding his medications. He is now aware that nurse will be unable to get them ready soon if he continues to get up and nurse has to respond to alarm. Patient is calm and laying in bed at this moment.
[2020-02-24] MEDS ORDERED: NON FORMULARY ITEM (Magnesium Hydroxide (Milk Of Magnesia) 2,400 MG) PO PRN (22:30)
[2020-02-24] MEDS ORDERED: METO25TA4 PO (22:43)
[2020-02-24] MEDS ORDERED: CLOZ100T PO (22:43)
[2020-02-24] MEDS ORDERED: SERT50TA PO (22:43)
[2020-02-24] MEDS ORDERED: MENT118G TP (22:43)
[2020-02-24] MEDS ORDERED: LORA-254 PO (22:43)
[2020-02-24] MEDS ORDERED: MELA3TAB4 PO (22:43)
[2020-02-24] MEDS ORDERED: NON FORMULARY ITEM (Menthol (Biofreeze) 1 APP) TP PRN (23:15)
[2020-02-24] MEDS: LORazepam 1 MG TABLET PO PRN (23:41)
--- NOTE | 2020-02-24 23:42 | NUR ---
Patient states he cannot sleep, he continues to be restless and state that he needs barbiturates. PRN ativan given for anxiety and zydis for psychosis per orders. Will continue to monitor.
[2020-02-25 05:39] VITALS: BP 122/71
[2020-02-25] MEDS: LEVOTHYROXINE 100 MCG TABLET PO SCH ×2 (05:42→05:50)
--- NOTE | 2020-02-25 05:51 | NUR ---
Patient combative this morning, calling staff "biggest assholes" and very resistive with vital signs. Vital signs obtained via staff x4. Patient swabbed for admittance Covid. Patient remained uncooperative and asking for "liquid lithium". Patient refused to take his morning Levothyroxine and called staff more names.
[2020-02-25 06:27] LABS: BASO % 0 % (0-3); EOS % 0 % (0-3); HEMATOCRIT 37.5 % (39.0-53.0); HEMOGLOBIN 12.7 g/dL (13.0-17.5); LYMPH # 1.8 x10^3/uL (1.0-4.8); LYMPH % 27 % (24-48); MEAN CORPUSCULAR HEMOGLOBIN 28 pg (25-35); MEAN CORPUSCULAR HGB CONC 34 g/dL (31-37); MEAN CORPUSCULAR VOLUME 82 fL (79-100); MONO # 0.7 x10^3/uL (0.0-1.1); MONO % 10 % (0-9); NEUT # 4.2 x10^3uL (1.8-7.7); NEUT % 63 % (31-73); PLATELET COUNT 271 x10^3/uL (140-400); RED BLOOD COUNT 4.59 x10^6/uL (4.30-5.70); RED CELL DISTRIBUTION WIDTH 15.8 % (11.5-14.5); WHITE BLOOD COUNT 6.8 x10^3/uL (4.0-11.0)
[2020-02-25 06:47] LABS: ALBUMIN 3.4 g/dL (3.4-5.0); ALBUMIN/GLOBULIN RATIO 1.2 (1.0-1.7); CALCIUM 9.2 mg/dL (8.5-10.1); CREATININE 1.2 mg/dL (0.7-1.3); GFR 61.3; MAGNESIUM 1.6 mg/dL (1.8-2.4); POTASSIUM 3.5 mmol/L (3.5-5.1); TOTAL BILIRUBIN 0.9 mg/dL (0.2-1.0); TOTAL PROTEIN 6.3 g/dL (6.4-8.2)
[2020-02-25] MEDS: PANTOPRAZOLE 40 MG TABLET. PO SCH ×2 (07:30→07:52)
[2020-02-25] MEDS: SERTRALINE 50 MG TABLET. PO SCH ×2 (07:52→09:00)
[2020-02-25] MEDS: DOCUSATE SODIUM 100 MG CAPSULE PO SCH ×2 (07:52→09:00)
[2020-02-25] MEDS: cloZAPine 100 MG TABLET PO SCH ×2 (07:52→09:00)
[2020-02-25 08:11] LABS: BACTERIA,URINE 0 /HPF (0-FEW); BILIRUBIN,URINE NEG (NEG); CLARITY,URINE CLEAR; COLOR,URINE YELLOW; GLUCOSE,URINE NEG (NEG); NITRITE,URINE NEG (NEG); RBC,URINE OCC /HPF (0-2); SQUAMOUS EPITHELIAL CELL,UR FEW /LPF; UROBILINOGEN,URINE 0.2 mg/dL (0.2 mg/dL)
[2020-02-25] MEDS: LORazepam 1 MG TABLET PO PRN (10:37)
[2020-02-25] MEDS: HALOPERIDOL LACT 5 MG/ML VIAL. IM SCH (11:43)
--- NOTE | 2020-02-25 12:39 | NUR ---
PSYCHOSOCIAL ASSESSMENT ADMISSION DATE: 02/24/2020 CONTACT INFORMATION: DPOA/Guardian Contact Name: Elizabethnkechi Alexandra or Rik Diaz (Public Field Ironworker) Contact Address: [place], [place] Contact Phone #: [phone] ETHNIC ORIGIN: REASONS FOR ADMISSION: Agitated Verbal aggression Poor impulse control SI thoughts Other ADDITIONAL ADMISSION COMMENTS: According to the intake pt is has been expressing wanting to , he has been non-compliant with medications, hitting staff, agitated, yelling and cursing at staff. REASON FOR ADMISSION IN PATIENT/FAMILY'S OWN WORDS: Pt has been having thoughts of wanting to and he has been agitated and aggressive with staff. PATIENT/FAMILY EXPECTATIONS FOR ADMISSION: Medication and Behavioral Management LIVING SITUATION: Patient lives with: Long Term Other living arrangements: Contact Name: Denver SpringsDamian (SW), Sandy (certified welding inspector), Phoebe (professor of forestry) Contact [address]: [address] [place] [id number] Contact Phone #: Contact Fax #: FAMILY RELATIONS: Marital Status: Single # of Marriages: 1 # of Children: 0 [facility] Family Support: Concerned Additional Comments r/t Family: According to the Public Field Ironworker, pt did while overseas with the ; however, he did not have any children. It is unknown if pt is or his has . SIGNIFICANT PSYCHIATRIC/MEDICAL HISTORY: Psychiatric/Treatment History: [place]. Pt has a hx of Schizoaffective D/O and MDD. Pertinent Family History: Public Field Ironworker is not sure at this time. HISTORICAL DATA: Childhood Environment: Other-see below Childhood Environment Additional Comments: Pt mother originally had guardianship of pt until she in June 2017. Pt father is still living at the age of 91 at [facility] in [place], [place]. Psychological Abuse: None Additional Comments: None that the public mine administrator supervisor office is aware of. Drug Abuse History last 12 months: No Comment: PERSONAL HISTORY: Vocational history: Pt manly held positions in the . Once discharged, pt was not able to hold down a job with his diagnosis. While in the [employer], pt received enough education and is considered to have his associates. 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 service: [place] Buddhism background: N/a Sexual orientation: Heterosexual Educational Level: Associates Past/Present Interests/Hobbies: N/A Financial support/resources: Social Security SS Disability Monthly income: Person handling finances: Pt has a conservator provided by the state Do you have a history of legal problems: N Cultural considerations: None SOCIAL RELATIONSHIPS-CURRENT/PAST: Psychiatrist: Dr. Prashanth Whatley [phone] (F)[phone] PCP: Dr. Ken Sears (P)[phone] Counselor/Therapist: [facility]: Support Group: Milieu Technician/Urology Physician Assistant: Damian at [facility] (P)[phone] ([phone] STRENGTHS & WEAKNESSES: Patient's strengths: Good verbal skills Ambulatory Other patient strengths: Patient's weaknesses: Poor family support Impulsive Poor social skills Other patient weaknesses: PRELIMINARY PLAN OF TREATMENT: Preliminary plan: Dec. Hallucination/Delus Promote Coping Skill Medication Stabilization Other preliminary treatment comments: DISCHARGE PLANNING: Discharge planning/disposition: Current Living Arrange. Additional discharge needs identified: Pt to return to [facility] once stable. ADDITIONAL INFORMATION: Other Pertinent Data: All hx obtained from PSA was gathered by pt Public Field Ironworker in 2019; but no information has changed. SW will continue to keep her up to date over pt stay; as well as the facility pt came from.
--- NOTE | 2020-02-25 14:30 | NUR ---
Nursing note: Pt in his room sleeping at time of AM med pass. He was very angry, refusing to take his meds yelling "I don't want those meds! Just give me the barbiturates! Why do hate me so much?! Just give me the barbiturates and then I'll know you love me!" Pt began swinging at me as I gave him more encouragement to take his meds. After multiple different attempts to give pt his meds, psych meds were crushed and put in a syringe. Staff x4 assisted in giving the syringed meds to pt, which he proceeded to spit out, receiving none of the meds. Pt then turned over on his stomach and began crying and stating "why can't you just leave me alone to ". Pt was combative with redirection, he was taken to the quiet abbott where he dropped to his knees and acted as if he is unable to walk. Dr. George paged d/t pt's behaviors. New orders received for IM haldol 5mg daily and IM ativan 1mg daily. Injections were given. Pt continued to lay on the floor in the quiet abbott where he was heard to be having a conversation with someone not there. It was unknown when pt last received his Clozaril. According to the facility, pt only received Clozaril once in the past week on 02/18. Will inform Dr. George when giving report. Pt is currently laying in his room. He continues to ask for barbiturates and believes he is here to receive barbiturates in a syringe every morning. Will continue to monitor.
[2020-02-25 16:15] VITALS: BP 119/70
[2020-02-25 18:57] LABS: THYROID STIM HORMONE (TSH) 4.952 uIU/mL (0.358-3.740)
--- NOTE | 2020-02-25 20:26 | CONS ---
DATE OF CONSULTATION: 02/25/2020 REASON FOR CONSULTATION: Medical management. HISTORY OF PRESENT ILLNESS: The patient is a 64-year-old male patient, a resident at [facility] and who [facility] on account of stating that he wants to . He is noncompliant with his medication, hitting staff, agitated, yelling and cursing at staff, isolating himself. He was taken off hospice on 02/11/2020 for failure to thrive and all this in a background of schizoaffective disorder, bipolar type, mixed with psychotic features, anxiety disorder, impulse control disorder. PAST MEDICAL HISTORY: Significant for hypothyroidism, type 2 diabetes mellitus, hyperlipidemia, hypertension, benign prostatic hypertrophy, stage 2 chronic kidney disease, rosacea, dysphagia. He is also known to have hyponatremia, headache. PAST SURGICAL HISTORY: Significant for appendectomy and tonsillectomy. ALLERGIES: He has no known drug allergies. FAMILY HISTORY: Unremarkable. SOCIAL HISTORY: He is currently single, never , has no children of his own. He does not smoke, drink alcohol or use any recreational drugs. MEDICATIONS: He is currently on the following medications: He is on melatonin 6 mg at bedtime, clozapine 500 mg at bedtime, Aricept 10 mg at bedtime, haloperidol lactate 5 mg intramuscular daily, lorazepam 1 mg daily intramuscular, sertraline 50 mg p.o. daily, Colace 100 mg once a day, clozapine 100 mg daily, medroxyprogesterone 5 mg twice a day, glipizide 5 mg daily, Protonix 40 mg once a day, levothyroxine sodium 100 mcg once a day, olanzapine 2.5 mg every 4 hours and lorazepam 1 mg every 8 hours as needed for anxiety and agitation. He is on milk of magnesia 30 mL p.o. daily p.r.n. for constipation, Mylanta 50 mL after meals and as needed and acetaminophen 650 mg every 6 hours as needed. PHYSICAL EXAMINATION: GENERAL: When I saw him this afternoon, he was resting slightly propped up in bed, in no apparent respiratory distress. He basically wanted barbiturate that he claims that it shrinks his heart and enhance the performance of his brain as he studied in an introductory psychology book 20 years ago according to him. On examining him, there was no pallor, jaundice, cyanosis or thyromegaly. No jugular venous distention. No limb edema. VITAL SIGNS: His heart rate was 115, blood pressure was 119/70, temperature 98.9, respiratory rate was 16, and oxygen saturation was 97%. HEAD, EYES, EARS, NOSE AND THROAT: Showed normocephalic, atraumatic. NECK: Supple. HEART: Showed normal first and second heart sounds. No gallop or murmur. CHEST: Clear to auscultation. No crepitation or rhonchi. ABDOMEN: Distended, soft, nontender. NEUROLOGIC: He was awake, alert. All his cranial nerves are intact. EXTREMITIES: He moves extremities without difficulty, though has somewhat muscle wasting and he is cachectic with body mass index only 21 kilograms square meter. LABORATORY DATA: His lab work showed a white cell count of 6800; hemoglobin 12.7; hematocrit 37.5; MCV 82 and platelet count 271,000 with normal manual differential. Serum sodium was 139, potassium 3.5, chloride 105, bicarbonate 26, anion gap of 8, BUN 14, creatinine 1.2, estimated GFR was 61 mL per minute. His glucose was 131, calcium was 9.2, magnesium was 1.6. Total bilirubin, AST, ALT, alkaline phosphatase were normal. His total protein was 6.3, albumin was 3.4. His total T4 was normal; however, total T3 was slightly below the lower limit of normal. His D-dimer was 0.68, has urinalysis essentially unremarkable. It was negative. He apparently is COVID-19 negative at his shelter facility; however, our testing here still pending at the time of this dictation. IMPRESSION: All in all, this is a 64-year-old male patient who was admitted on account of wanting to . He is noncompliant with his medication, hitting staff, agitated, yelling and cursing the staff, isolating himself. He was on hospice; however, he was taken off hospice on 02/11/2020 to failure to thrive. This is all on the background of schizoaffective disorder, bipolar type, mixed with psychotic features, anxiety disorder, impulse control disorder. Medically, he seemed to be stable, although he has episodes of sinus tachycardia, which is also mentioned in the past medical history. He seems otherwise stable. All his lab works are well within normal range. He does have hypomagnesemia, for which he was started on magnesium oxide. Otherwise, the patient seems to be fairly stable medically. Thank you kindly for allowing me to participate in the care of this patient. STEPHANIE GAMING MD DR: JAY/merced JOB#: [id number] / [id number]
--- NOTE | 2020-02-25 20:44 | PDOC ---
Exam Note: Vincent Note: Please also refer to the separate dictated note~for this date of service dictated separately.~Patient seen individually. Discussed the patient with Nursing staff reviewed the chart.~Reviewed interim history and current functioning. Reviewed vital signs,~Labs/ Radiology~and current medications noted below. Continue current treatment with the changes noted in the dictated addendum note Assessment: Vital Signs/I&O: Vital Signs Date Time Temp Pulse Resp B/P (MAP) Pulse Ox O2 Delivery O2 Flow Rate FiO2 02/25/20 16:15 98.9 115 16 119/70 (86) 97 02/24/20 21:00 Room Air I & O 02/24/20 02/24/20 02/25/20 15:00 23:00 07:00 Intake Total 0 ml Balance 0 ml Labs: Laboratory Tests Test 02/25/20 06:05 02/25/20 07:45 02/25/20 07:47 White Blood Count 6.8 x10^3/uL (4.0-11.0) Red Blood Count 4.59 x10^6/uL (4.30-5.70) Hemoglobin 12.7 g/dL (13.0-17.5) L Hematocrit 37.5 % (39.0-53.0) L Mean Corpuscular Volume 82 fL (79-100) Mean Corpuscular Hemoglobin 28 pg (25-35) Mean Corpuscular Hemoglobin Concent 34 g/dL (31-37) Red Cell Distribution Width 15.8 % (11.5-14.5) H Platelet Count 271 x10^3/uL (140-400) Neutrophils (%) (Auto) 63 % (31-73) Lymphocytes (%) (Auto) 27 % (24-48) Monocytes (%) (Auto) 10 % (0-9) H Eosinophils (%) (Auto) 0 % (0-3) Basophils (%) (Auto) 0 % (0-3) Neutrophils # (Auto) 4.2 x10^3uL (1.8-7.7) Lymphocytes # (Auto) 1.8 x10^3/uL (1.0-4.8) Monocytes # (Auto) 0.7 x10^3/uL (0.0-1.1) Eosinophils # (Auto) 0.0 x10^3/uL (0.0-0.7) Basophils # (Auto) 0.0 x10^3/uL (0.0-0.2) D-Dimer (Jinny) 0.68 mg/L (0.00-0.50) H Sodium Level 139 mmol/L (136-145) Potassium Level 3.5 mmol/L (3.5-5.1) Chloride Level 105 mmol/L (98-107) Carbon Dioxide Level 26 mmol/L (21-32) Anion Gap 8 (6-14) Blood Urea Nitrogen 14 mg/dL (8-26) Creatinine 1.2 mg/dL (0.7-1.3) Estimated GFR (Cockcroft-Gault) 61.3 BUN/Creatinine Ratio 12 (6-20) Glucose Level 131 mg/dL (70-99) H Calcium Level 9.2 mg/dL (8.5-10.1) Magnesium Level 1.6 mg/dL (1.8-2.4) L Iron Level 24 ug/dL (65-175) L Total Iron Binding Capacity 269 ug/dL (250-450) Iron Saturation 9 % (15-34) L Total Bilirubin 0.9 mg/dL (0.2-1.0) Aspartate Amino Transferase (AST) 15 U/L (15-37) Alanine Aminotransferase (ALT) 18 U/L (16-63) Alkaline Phosphatase 110 U/L (46-116) Total Protein 6.3 g/dL (6.4-8.2) L Albumin 3.4 g/dL (3.4-5.0) Albumin/Globulin Ratio 1.2 (1.0-1.7) Triglycerides Level 94 mg/dL (0-150) Cholesterol Level 175 mg/dL (0-200) LDL Cholesterol, Calculated 111 mg/dL (0-100) H VLDL Cholesterol, Calculated 18 mg/dL (0-40) Non-HDL Cholesterol Calculated 129 mg/dL (0-129) HDL Cholesterol 46 mg/dL (40-60) Cholesterol/HDL Ratio 3.0 Vitamin B12 Level 503 pg/mL (247-911) 25-Hydroxy Vitamin D Total 32.6 ng/mL (30-100) Thyroid Stimulating Hormone (TSH) 4.952 uIU/mL (0.358-3.740) Thyroxine (T4) 6.0 ug/dL (4.5-12.0) Total Triiodothyronine (TT3) 69 ng/dL (71-180) L Treponema pallidum Antibody Nonreactive (Nonreactive) Urine Collection Type Unknown Urine Color Yellow Urine Clarity Clear Urine pH 5.0 Urine Specific [place] <=1.005 Urine Protein Neg (NEG-TRACE) Urine Glucose (UA) Neg mg/dL (NEG) Urine Ketones (Stick) Neg mg/dL (NEG) Urine Blood Neg (NEG) Urine Nitrite Neg (NEG) Urine Bilirubin Neg (NEG) Urine Urobilinogen Dipstick 0.2 mg/dL (0.2 mg/dL) Urine Leukocyte Esterase Neg (NEG) Urine RBC Occ /HPF (0-2) Urine WBC 1-4 /HPF (0-4) Urine Squamous Epithelial Cells Few /LPF Urine Bacteria 0 /HPF (0-FEW) Urine Mucus Slight /LPF Glucose (Fingerstick) 116 mg/dL (70-99) H Current Medications: Meds: Current Medications Medications (Trade) Dose Ordered Sig/Sanna Route PRN Reason Start Time Stop Time Status Last Admin Dose Admin Lorazepam (Ativan) 1 mg PRN Q8HRS PRN PO ANXIETY / AGITATION 02/24/20 23:15 02/24/20 23:41 Olanzapine (ZyPREXA ZYDIS) 2.5 mg PRN Q4HRS PRN PO psychosis 02/24/20 23:15 02/24/20 23:41 Lorazepam (Ativan Inj) 1 mg DAILY IM 02/25/20 11:15 02/25/20 11:43 Haloperidol Lactate (Haldol) 5 mg DAILY IM 02/25/20 11:15 02/25/20 11:43 I have reviewed the current psychotropics carefully including drug interactions. Risk benefit ratio favors no change other than as noted in my dictated progress note. Diagnosis: Problems: (1) MDD (major depressive disorder) (2) Schizoaffective disorder, bipolar type KUNAL BEST MD Feb 25, 2020 20:44
[2020-02-25] MEDS ORDERED: cloZAPine 100 MG TABLET PO SCH (21:00)
[2020-02-25] MEDS: MELATONIN 3 MG TABLET PO SCH (21:20)
[2020-02-25] MEDS: MAGNESIUM OXIDE 400 MG TABLET PO SCH (21:20)
[2020-02-25] MEDS: DONEPEZIL HCL 10 MG TABLET PO SCH (21:20)
--- NOTE | 2020-02-25 21:20 | NUR ---
When nurse entered the room with HS medications patient yelled at nurse to get out of his room. He is very sarcastic tonight. He refused to take HS medications because there were "no barbiturates". Nurse attempted to explain to patient that barbiturates are not used very much anymore and have been replaced by other, newer and more effective drugs but patient is not listening and told nurse that he is a "college graduate" and then told nurse to "get the fuck" out of his room.
[2020-02-26 00:11] LABS: HEMOGLOBIN A1C 5.8 % (4.8-5.6)
[2020-02-26] MEDS: LEVOTHYROXINE 100 MCG TABLET PO SCH (05:03)
[2020-02-26 05:35] VITALS: BP 118/79
[2020-02-26] MEDS: SERTRALINE 50 MG TABLET. PO SCH (07:58)
[2020-02-26] MEDS: PANTOPRAZOLE 40 MG TABLET. PO SCH (07:59)
[2020-02-26] MEDS: MAGNESIUM OXIDE 400 MG TABLET PO SCH ×2 (07:59→20:27)
[2020-02-26] MEDS: DOCUSATE SODIUM 100 MG CAPSULE PO SCH (08:01)
[2020-02-26] MEDS: HALOPERIDOL LACT 5 MG/ML VIAL. IM SCH (08:02)
--- NOTE | 2020-02-26 09:24 | HP ---
ADMIT DATE: 02/25/2020 PSYCHIATRIC ADMISSION HISTORY/EVALUATION This late entry for date of service 02/24 and covers elements not covered in my initial note of 02/24. The patient was seen on telehealth rounds for this evaluation. IDENTIFYING DATA: The patient is a 64-year-old male who returns back to us from [facility], referred by his primary care physician on account of an acute exacerbation of schizoaffective disorder, bipolar type, mixed with psychotic features. The patient was making repeated statements that he wanted to . He was noncompliant with his medications, physically attacking staff. He was agitated, yelling and cursing at staff, isolating himself. He had been previously taken off hospice on 02/08 to 02/12, which was initiated for failure to thrive. The patient has failed outpatient psychiatric interventions despite significant dosages of Clozaril. He has been noncompliant with his Clozaril as well further complicating his presentation. CHIEF COMPLAINT: "I just want barbiturates, that is all that will cure me, give me barbiturates." HISTORY OF PRESENT ILLNESS: The patient has a long history of bipolar disorder versus schizoaffective disorder, bipolar type. He has been hospitalized with us before and stabilized on Clozaril, but recently has been noncompliant with his medications. He has been extremely psychotic, paranoid, angry, irritable, labile in his mood. No active homicidal ideation. He continues to have mood swings, but recently has been more depressed. PAST PSYCHIATRIC HISTORY: As above. MEDICAL HISTORY: Hypothyroidism, type 2 diabetes mellitus, hyperlipidemia, marked insomnia, hypertension, BPH, stage 2 chronic kidney disease, rosacea, dysphagia, history of pneumonia, sinus tachycardia, history of hyponatremia, history of headaches, blurred vision, frequent falls. Accu-Cheks daily. CODE STATUS: DNR. ALLERGIES: Negative. DIET: Dysphagia to regular liquids. CURRENT PSYCHOTROPICS: Aricept 10 mg a day, Ativan p.r.n., Provera 5 mg a day, melatonin 6 mg at bedtime, Zyprexa was added p.r.n. at admission on account of his psychosis and agitation, Zoloft 50 mg a day, Clozaril 100 mg a.m. and 500 mg at bedtime, but not compliant with this. Admission CBC, absolute neutrophil count consequent to Clozaril is stable. FAMILY HISTORY: Noncontributory. SOCIAL HISTORY: No history of alcohol, drug abuse, physical, sexual or elder abuse. He is not known to be a perpetrator. REACTION TO HOSPITALIZATION: The patient quite dismissive of this. MENTAL STATUS EXAMINATION: The patient was seen individually evening of 02/24 on telehealth rounds. Prior to this, had been called by the nursing staff several times on account of increased agitation, aggression, disruptive behavior, noncompliance with his medications. He was refusing Clozaril all other oral medications and he was started on a combination of Haldol 5 mg mixed with Ativan 1 mg IM daily and has been less psychotic, somewhat less agitated since then. Abstraction fair, computation impaired, language function intact, attention span short. Mood and affect depressed. He is quite obsessive, ruminative. LABORATORY DATA: Reviewed. IMPRESSION: Schizoaffective disorder, bipolar type, depressed with psychotic features; anxiety disorder, unspecified; impulse control disorder, unspecified. Rest as above. PLAN: Admit to Geropsychiatry Unit at [facility]. I will see the patient daily individually from a psychiatric standpoint. Medical followup with Dr. Vera/Dr. Muhammad. At my request, nursing staff inquired from the retirement about average how much Clozaril the patient had been taking and this has been very minimal. There was just one day in the past 7 days he has taken the full dosage 600 mg a day. We will go ahead and stop the Clozaril due to noncompliance of the potential for interactions with his absolute neutrophil counts due to sudden escalation in removal of the dosages and consider starting him on long-acting atypical antipsychotics perhaps Risperdal, ____ or an alternative. In the interim, continue his current psychotropics. Adjust further as clinically indicated. ESTIMATED LENGTH OF STAY: 10-12 days. DISPOSITION: Plans back to retirement when stable. KUNAL BEST MD DR: MARRY/merced JOB#: [id number] / [id number]
--- NOTE | 2020-02-26 13:10 | NUR ---
ACTIVITY THERAPY ASSESSMENT completed based on observation, notes, and interview. AT attempted an assessment at 1230 and returned at 1310 when pt was awake. Pt was sitting up eating lunch in his room. Pt requested some tea with lunch. AT asked pt if she could ask some questions first and then she would get him a drink. Pt agreed and was calm and agreeable when answering questions. Pt said that he likes to drive his car, play basketball and play monopoly. AT asked pt to tell her a bit about his family. Pt said 'yes my dad is a man and my mom is a woman.' AT asked pt if he had a or children and he said 'none' to both of them. Pt said that he came from [place], [place] from a facility. AT asked pt if he knew where he was and he said ' I think [place].' Pt said that name of the hospital was [facility]. AT asked pt if he reports and stress. Pt said 'no' then said 'how many more questions do you have?' AT concluded by asking pt what he likes/liked to do with his family and friends. Pt response was 'I haven't been with my family for 20 years.' Per notes pt has been restless, agitated and combative towards staff. Initial goal aimed to increase time management and motivation skills. Pt will participate in at least one individual or group Activity Therapy session before discharge.
[2020-02-26] MEDS ORDERED: FLU VACC QS 2020-21(6MOS+)/PF 0.5 ML SYRINGE. VAX IM ONE (14:00)
[2020-02-26 15:27] VITALS: BP 100/62
--- NOTE | 2020-02-26 15:28 | NUR ---
Nursing note: Pt has been withdrawn to his room this shift. He continues to refuse his meds and demand barbiturates. Pt became combative with encouragement, punching staff. Pt eventually did put whole medications in his mouth and drank water and appeared to have taken meds whole. Pt quickly got up and went to the bathroom and staff noticed that he still had pills in his mouth. As pt sat on the toilet, he spit his meds out into his hand and threw some of them in the toilet. He had one remaining in his hand which he did end up taking whole. It is unknown what/how many of his meds pt received. Pt again attempted to hit and kick staff. He was assisted off the toilet to a chair in his room where he proceeded to eat breakfast. Pt tolerated IM injections and flu shot well with very little resistance. He spent a little time working with PT/OT this morning and has taken a short walk around the unit. Pt is currently laying in his bed. Will continue to monitor.
[2020-02-26] MEDS: MELATONIN 3 MG TABLET PO SCH (20:27)
[2020-02-26] MEDS: DONEPEZIL HCL 10 MG TABLET PO SCH (20:27)
[2020-02-26] MEDS: risperiDONE ORAL 1 MG/ML 30ml BOTTLE. PO SCH (20:38)
--- NOTE | 2020-02-26 21:19 | NUR ---
Nursing Note: Pt withdrawn to room, lying in bed at shift change. Pt irritable and resistive this evening, requesting "barbiturates". Pt compliant with medications administered whole, pt checked to ensure that he did not cheek or hide his medications, pt did in fact swallow the medications. Liquid Risperdal initiated this evening, when approached with medication, pt stated "barbiturates?" Pt informed that he was not getting barbiturates and that the doctor has prescribed his medications to which he was receptive and complied with medication administration.
--- NOTE | 2020-02-26 21:38 | PDOC ---
Exam Note: Vincent Note: Please also refer to the separate dictated note~for this date of service dictated separately.~Patient seen individually. Discussed the patient with Nursing staff reviewed the chart.~Reviewed interim history and current functioning. Reviewed vital signs,~Labs/ Radiology~and current medications noted below. Continue current treatment with the changes noted in the dictated addendum note Assessment: Vital Signs/I&O: Vital Signs Date Time Temp Pulse Resp B/P (MAP) Pulse Ox O2 Delivery O2 Flow Rate FiO2 02/26/20 15:27 98.9 101 17 100/62 (75) 94 02/26/20 05:35 Room Air I & O 02/25/20 02/25/20 02/26/20 14:59 22:59 06:59 Intake Total 240 ml 240 ml Balance 240 ml 240 ml Labs: Laboratory Tests Test 02/26/20 07:41 Glucose (Fingerstick) 120 mg/dL (70-99) H Current Medications: Meds: Laboratory Tests Test 02/26/20 07:41 Glucose (Fingerstick) 120 mg/dL Current Medications Medications (Trade) Dose Ordered Sig/Sanna Route PRN Reason Start Time Stop Time Status Last Admin Dose Admin Acetaminophen (Tylenol) 650 mg PRN Q6HRS PRN PO MILD PAIN / TEMP > 100.3'F 02/24/20 21:45 Multi-Ingredient Ointment (Analgesic [place]) 1 sushma PRN QID PRN TP MUSCLE PAIN 02/24/20 21:45 Al Hydroxide/Mg Hydroxide (Mylanta Plus Xs) 15 ml PRN AFTMEALHC PRN PO DYSPEPSIA 02/24/20 21:45 Magnesium Hydroxide (Milk Of Magnesia) 2,400 mg PRN QHS PRN PO CONSTIPATION 02/24/20 21:45 Donepezil HCl (Aricept) 10 mg HS PO 02/25/20 21:00 02/26/20 20:27 Levothyroxine Sodium (Synthroid) 100 mcg DAILY06 PO 02/25/20 06:00 02/26/20 05:03 Medroxyprogesterone Acetate (Provera) 5 mg BID PO 02/25/20 09:00 02/26/20 20:27 Pantoprazole Sodium (Protonix) 40 mg DAILYAC PO 02/25/20 07:30 02/26/20 07:59 Non-Formulary Medication (Magnesium Hydroxide (Milk Of Magnesia)) 2,400 mg PRN QHS PRN PO CONSTIPATION 02/24/20 22:30 UNV Clozapine (Clozaril) 500 mg HS PO 02/25/20 21:00 02/25/20 18:48 DC Clozapine (Clozaril) 100 mg DAILY PO 02/25/20 09:00 02/25/20 18:48 DC Docusate Sodium (Colace) 100 mg DAILY PO 02/25/20 09:00 02/26/20 08:01 Glipizide (Glucotrol Er) 5 mg DAILY08 PO 02/25/20 08:00 02/26/20 07:59 Lorazepam (Ativan) 1 mg PRN Q8HRS PRN PO ANXIETY / AGITATION 02/24/20 23:15 02/24/20 23:41 Melatonin (Melatonin) 6 mg HS PO 02/25/20 21:00 02/26/20 20:27 Olanzapine (ZyPREXA ZYDIS) 2.5 mg PRN Q4HRS PRN PO psychosis 02/24/20 23:15 02/24/20 23:41 Sertraline HCl (Zoloft) 50 mg DAILY PO 02/25/20 09:00 02/26/20 07:58 Non-Formulary Medication (Menthol (Biofreeze)) 1 sushma PRN DAILY PRN TP PAIN 02/24/20 23:15 UNV Lorazepam (Ativan Inj) 1 mg DAILY IM 02/25/20 11:15 02/26/20 08:03 Haloperidol Lactate (Haldol) 5 mg DAILY IM 02/25/20 11:15 02/26/20 08:02 Magnesium Oxide (Magnesium Oxide) 400 mg BID PO 02/25/20 21:00 02/26/20 20:27 Influenza Virus Vaccine Quadrival (Fluzone Quad Syringe) 0.5 ml ONCE ONCE VAX IM 02/26/20 14:00 02/26/20 14:01 DC 02/26/20 08:31 Risperidone (RisperDAL) 0.5 mg QHS PO 02/26/20 21:00 02/27/20 23:00 02/26/20 20:38 Risperidone (RisperDAL CONSTA) 25 mg Q2WKS IM 02/28/20 09:00 Current Medications Medications (Trade) Dose Ordered Sig/Sanna Route PRN Reason Start Time Stop Time Status Last Admin Dose Admin Influenza Virus Vaccine Quadrival (Fluzone Quad Syringe) 0.5 ml ONCE ONCE VAX IM 02/26/20 14:00 02/26/20 14:01 DC 02/26/20 08:31 Risperidone (RisperDAL) 0.5 mg QHS PO 02/26/20 21:00 02/27/20 23:00 02/26/20 20:38 I have reviewed the current psychotropics carefully including drug interactions. Risk benefit ratio favors no change other than as noted in my dictated progress note. Diagnosis: Problems: (1) Schizoaffective disorder, bipolar type (2) Impulse control disorder (3) Bipolar disorder with psychotic features (4) Anxiety disorder KUNAL BEST MD Feb 26, 2020 21:38
[2020-02-27] MEDS: LEVOTHYROXINE 100 MCG TABLET PO SCH (05:15)
[2020-02-27 06:20] VITALS: BP 119/70
[2020-02-27] MEDS: HALOPERIDOL LACT 5 MG/ML VIAL. IM SCH (07:48)
[2020-02-27] MEDS: PANTOPRAZOLE 40 MG TABLET. PO SCH (07:48)
[2020-02-27] MEDS: MAGNESIUM OXIDE 400 MG TABLET PO SCH ×2 (07:48→19:45)
[2020-02-27] MEDS: DOCUSATE SODIUM 100 MG CAPSULE PO SCH (07:48)
[2020-02-27] MEDS: SERTRALINE 50 MG TABLET. PO SCH (07:48)
--- NOTE | 2020-02-27 08:13 | PDOC ---
Exam Note: Vincent Note: This note is a late entry for 02/26/2020 covers elements not covered in my initial note. Subjective: The patient was reviewed on telehealth rounds in the evening of 02/26/2020 with Viv BAIRES. Discussed with nursing staff, reviewed the chart. The patient slept 6-3/4 hours previous night. He has refused his medications. He spits them out in the toilet. He was agitated, aggressive in the morning, punching staff, paranoid, and delusional. He is fixated repeatedly asking me to give him barbiturates and otherwise his life is useless. He did tolerate the IM Haldol, Ativan. Review of Systems: Positive for tiredness. No CV, , pulmonary, eye, ENT system symptoms on review. Reliability poor. Mental Status Exam: The patient is oriented to himself and situation. Speech has latency. Often response is monosyllabic. Abstraction is fair. Computation is impaired. Language function is intact. Attention span is short. Mood and affect quite withdrawn, paranoid, delusional. Laboratory Data: Reviewed. Impression: Schizoaffective disorder, bipolar type, mixed with psychotic features. Major depressive disorder with psychotic features. Impulse control disorder unspecified. Plan: Given his significant non-compliance with the oral psychotropics and the dangers of using Clozaril intermittently due to his non-compliance, we will go ahead and stop the Clozaril. Start Risperdal oral 0.5 mg for 2 doses and if tolerates this well we will start Risperdal Consta 25 mg IM q. 2 weeks. Continue rest of the psychotropics unchanged from initial note. For now maintain Haldol and Ativan IM scheduled, Aricept, Provera 5 mg a day, melatonin 6 mg h.s., Zyprexa p.r.n., Zoloft 50 mg a day. Assessment: Vital Signs/I&O: Vital Signs Date Time Temp Pulse Resp B/P (MAP) Pulse Ox O2 Delivery O2 Flow Rate FiO2 02/27/20 06:20 98.0 78 16 119/70 (86) 97 Room Air I & O 02/26/20 02/26/20 02/27/20 14:59 22:59 06:59 Intake Total 840 ml 360 ml Balance 840 ml 360 ml Labs: Laboratory Tests Test 02/27/20 07:45 Glucose (Fingerstick) 135 mg/dL (70-99) H Current Medications: Meds: Laboratory Tests Test 02/27/20 07:45 Glucose (Fingerstick) 135 mg/dL Current Medications Medications (Trade) Dose Ordered Sig/Sanna Route PRN Reason Start Time Stop Time Status Last Admin Dose Admin Acetaminophen (Tylenol) 650 mg PRN Q6HRS PRN PO MILD PAIN / TEMP > 100.3'F 02/24/20 21:45 Multi-Ingredient Ointment (Analgesic [place]) 1 sushma PRN QID PRN TP MUSCLE PAIN 02/24/20 21:45 Al Hydroxide/Mg Hydroxide (Mylanta Plus Xs) 15 ml PRN AFTMEALHC PRN PO DYSPEPSIA 02/24/20 21:45 Magnesium Hydroxide (Milk Of Magnesia) 2,400 mg PRN QHS PRN PO CONSTIPATION 02/24/20 21:45 Donepezil HCl (Aricept) 10 mg HS PO 02/25/20 21:00 02/26/20 20:27 Levothyroxine Sodium (Synthroid) 100 mcg DAILY06 PO 02/25/20 06:00 02/27/20 05:15 Medroxyprogesterone Acetate (Provera) 5 mg BID PO 02/25/20 09:00 02/27/20 07:44 Pantoprazole Sodium (Protonix) 40 mg DAILYAC PO 02/25/20 07:30 02/27/20 07:48 Non-Formulary Medication (Magnesium Hydroxide (Milk Of Magnesia)) 2,400 mg PRN QHS PRN PO CONSTIPATION 02/24/20 22:30 UNV Clozapine (Clozaril) 500 mg HS PO 02/25/20 21:00 02/25/20 18:48 DC Clozapine (Clozaril) 100 mg DAILY PO 02/25/20 09:00 02/25/20 18:48 DC Docusate Sodium (Colace) 100 mg DAILY PO 02/25/20 09:00 02/27/20 07:48 Glipizide (Glucotrol Er) 5 mg DAILY08 PO 02/25/20 08:00 02/27/20 07:44 Lorazepam (Ativan) 1 mg PRN Q8HRS PRN PO ANXIETY / AGITATION 02/24/20 23:15 02/24/20 23:41 Melatonin (Melatonin) 6 mg HS PO 02/25/20 21:00 02/26/20 20:27 Olanzapine (ZyPREXA ZYDIS) 2.5 mg PRN Q4HRS PRN PO psychosis 02/24/20 23:15 02/24/20 23:41 Sertraline HCl (Zoloft) 50 mg DAILY PO 02/25/20 09:00 02/27/20 07:48 Non-Formulary Medication (Menthol (Biofreeze)) 1 sushma PRN DAILY PRN TP PAIN 02/24/20 23:15 UNV Lorazepam (Ativan Inj) 1 mg DAILY IM 02/25/20 11:15 02/27/20 07:51 Haloperidol Lactate (Haldol) 5 mg DAILY IM 02/25/20 11:15 02/27/20 07:48 Magnesium Oxide (Magnesium Oxide) 400 mg BID PO 02/25/20 21:00 02/27/20 07:48 Influenza Virus Vaccine Quadrival (Fluzone Quad Syringe) 0.5 ml ONCE ONCE VAX IM 02/26/20 14:00 02/26/20 14:01 DC 02/26/20 08:31 Risperidone (RisperDAL) 0.5 mg QHS PO 02/26/20 21:00 02/27/20 23:00 02/26/20 20:38 Risperidone (RisperDAL CONSTA) 25 mg Q2WKS IM 02/28/20 09:00 Current Medications Medications (Trade) Dose Ordered Sig/Sanna Route PRN Reason Start Time Stop Time Status Last Admin Dose Admin Influenza Virus Vaccine Quadrival (Fluzone Quad Syringe) 0.5 ml ONCE ONCE VAX IM 02/26/20 14:00 02/26/20 14:01 DC 02/26/20 08:31 Risperidone (RisperDAL) 0.5 mg QHS PO 02/26/20 21:00 02/27/20 23:00 02/26/20 20:38 I have reviewed the current psychotropics carefully including drug interactions. Risk benefit ratio favors no change other than as noted in my dictated progress note. Diagnosis: Problems: (1) Bipolar disorder with psychotic features (2) Schizoaffective disorder, bipolar type (3) Impulse control disorder (4) Anxiety disorder (5) MDD (major depressive disorder) KUNAL BEST MD Feb 27, 2020 08:13
[2020-02-27] MEDS: buPROPion XL 150 MG TAB.ER.24H PO SCH (10:45)
--- NOTE | 2020-02-27 10:51 | NUR ---
Nursing Note Pt sat up in bed took meds pleasant and cooperative. Checked for retained meds in his oral cavity. Used della to get pt to be compliant. Also he refused breakfast but drank an entire ensure. When he was finished he rolled over on his belly and went back to sleep.
--- NOTE | 2020-02-27 10:55 | NUR ---
WEEKLY ACTIVITY THERAPY NOTE Date of Admission: 02/24/2020 Date of AT Assessment: 02/26/2020 Precipitating behaviors that initiated intake and admission:It was reported that patient has been stating that he wishes to . He has been non-compliant with medications, hitting the staff and lab personnel. He was agitated, yelling and cursing at staff. He has also been isolating himself. Patient had been recently discharged from Hospice for Failure to Thrive. Goal aimed: increase time management and motivation skills Initial Goal: Pt will participate in at least one individual or group Activity Therapy session before discharge. Weekly progress towards goal: on track, 0/1 Group participation level: zero Weekly highlights: some cooperation with assessment Behaviors observed: withdrawn to room, in bed, mocked staff on Monday when invited to group Plan: no change to goal Behaviors observed:
--- NOTE | 2020-02-27 12:09 | TX PLAN ---
Interdisciplinary Tx Plan Admission Information Feb 24, 2020 at 21:26 Legal Status (on Admission): Voluntary DPOA/Guardian Name: Elizabeth Alexandra or Rik Diaz (Public Recorder [employer]) Contact or [phone] Other Contact Name: Grand Mullen Other Contact Verified Code Status: DNR Allergies: Coded Allergies: No Known Drug Allergies (Unverified , 01/09/19) Diagnoses Primary Diagnosis: Schizoeffective D/O, Bipolar with psychotic features, Anxiety D/O unspecified, Impulse Control D/O Reasons for Admission: Aggressive, Agitated, Depressed, Suicidal ideation, Combative, Isolating, Poor impulse control Problem in Patient's Words: Pt has been having thoughts of wanting to and he has been agitated and aggressive with staff. "I just want to be left alone. I'd rather have the barbiturates." Additional Admission Comments: None Problems Active Problems: Isolating, agitation, combative, cheeking medications, expressions of wanting to , yelling at staff Inactive Problems: None Pt Strengths/Limitations Ability for [place]: Poor Cognitive Functioning/Ability: Poor Communication Skills/Ability: Poor Financial Resources: Fair Insight/Judgement: Poor Intellectual Ability: Poor Physical Health: Poor Social Skills: Poor Stability in Family: Poor Stability in School/Work: Fair Verbal Skills: Fair Discharge Criteria Discharge Criteria: Able meet basic life need, Adequate arrangements @DC, Adequate self-care, Verbal commit med comply, Improved behavior, Improved mood/t hought Preliminary Discharge Plan Preliminary DC Plan: [facility], [facility] Special Precautions Special Precautions: Agitation/Assault, Suicide Risk Fall Risk: Moderate Initial D/C Plan Pt plan is to return to [facility] Identified Discharge Needs: Continued psychiatric services Safety Plan Currently Utilized Resources Currently Utilized Resources/P: PCP: Dr. Ken Sears ([phone] Psychiatrist: Dr. Prashanth Whatley [phone])[phone] Guardian: Elizabeth Alexandra or Rik Diaz (Public Recorder [employer]) [phone] [facility]: Damian (SW), Sandy (oven equipment repairer), Phoebe (spindraw operator) ([phone])[phone] Referrals Community Resources: None noted at this time. Identified Problems/Hx/Goals Objectives/Short-Term Goals Short Term Goals: Control abnormal behavior, Dec. Aggression, Dec. Anxiety/Panic, Dec. Hallucination/Delus, Decrease Isolation, Dec. Outbursts, Dec. Symp. Depression, Improved Social Skills, Medication Stabilization, Monitor Med Effects, No Suicidal/Malachi. ideation, Prevent Deterioration, Promote Coping Skill Short Term Goals in Patient's: Get medications right. Interventions/Frequency Staff Interventions/Frequency&: Psychiatry to assess pt three times per week for medication management. Nursing to assess behaviors, monitor medicatins, and complete 15 minute checks daily. Social work to see pt at least two times weekly to aid in return to placement. Activities to encourage pt to participate in group activities daily. History Vocational History: Pt mainly held positions in the . Once discharged, pt was not able to hold down a job with his diagnosis. While in the [employer], pt received enough education and is considered to have his associates. 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 Education: Associates Community Follow-up PCP and psychiatrist Treatment Plan Explained Patient/Administrative Services Director had this treatment plan explained to him/her as indicated by the signature below and has been given the opportunity to ask questions and make suggestions: Date: Patient/Administrative Services Director Signature: JAJA LOPEZ Feb 27, 2020 12:09
[2020-02-27 15:31] VITALS: BP 126/75
[2020-02-27] MEDS: DONEPEZIL HCL 10 MG TABLET PO SCH (19:44)
[2020-02-27] MEDS: MELATONIN 3 MG TABLET PO SCH (19:44)
[2020-02-27] MEDS: risperiDONE ORAL 1 MG/ML 30ml BOTTLE. PO SCH (19:45)
--- NOTE | 2020-02-27 20:54 | NUR ---
Nursing Note: Pt withdrawn to room, lying in bed with eyes closed at shift change. Pt less irritable this evening but continues to have a flat, depressed affect with minimal interaction with others. Pt cooperative with assessment and compliant with medications administered whole, no pocketing noted.
--- NOTE | 2020-02-27 20:55 | PDOC ---
Exam Note: Vincent Note: Please also refer to the separate dictated note~for this date of service dictated separately.~Patient seen individually. Discussed the patient with Nursing staff reviewed the chart.~Reviewed interim history and current functioning. Reviewed vital signs,~Labs/ Radiology~and current medications noted below. Continue current treatment with the changes noted in the dictated addendum note Assessment: Vital Signs/I&O: Vital Signs Date Time Temp Pulse Resp B/P (MAP) Pulse Ox O2 Delivery O2 Flow Rate FiO2 02/27/20 15:31 98.2 89 16 126/75 (92) 99 02/27/20 06:20 Room Air I & O 02/26/20 02/26/20 02/27/20 15:00 23:00 07:00 Intake Total 840 ml 360 ml Balance 840 ml 360 ml Labs: Laboratory Tests Test 02/27/20 07:45 Glucose (Fingerstick) 135 mg/dL (70-99) H Current Medications: Meds: Laboratory Tests Test 02/27/20 07:45 Glucose (Fingerstick) 135 mg/dL Current Medications Medications (Trade) Dose Ordered Sig/Sanna Route PRN Reason Start Time Stop Time Status Last Admin Dose Admin Acetaminophen (Tylenol) 650 mg PRN Q6HRS PRN PO MILD PAIN / TEMP > 100.3'F 02/24/20 21:45 Multi-Ingredient Ointment (Analgesic [place]) 1 sushma PRN QID PRN TP MUSCLE PAIN 02/24/20 21:45 Al Hydroxide/Mg Hydroxide (Mylanta Plus Xs) 15 ml PRN AFTMEALHC PRN PO DYSPEPSIA 02/24/20 21:45 Magnesium Hydroxide (Milk Of Magnesia) 2,400 mg PRN QHS PRN PO CONSTIPATION 02/24/20 21:45 Donepezil HCl (Aricept) 10 mg HS PO 02/25/20 21:00 02/27/20 19:44 Levothyroxine Sodium (Synthroid) 100 mcg DAILY06 PO 02/25/20 06:00 02/27/20 05:15 Medroxyprogesterone Acetate (Provera) 5 mg BID PO 02/25/20 09:00 02/27/20 19:44 Pantoprazole Sodium (Protonix) 40 mg DAILYAC PO 02/25/20 07:30 02/27/20 07:48 Non-Formulary Medication (Magnesium Hydroxide (Milk Of Magnesia)) 2,400 mg PRN QHS PRN PO CONSTIPATION 02/24/20 22:30 UNV Clozapine (Clozaril) 500 mg HS PO 02/25/20 21:00 02/25/20 18:48 DC Clozapine (Clozaril) 100 mg DAILY PO 02/25/20 09:00 02/25/20 18:48 DC Docusate Sodium (Colace) 100 mg DAILY PO 02/25/20 09:00 02/27/20 07:48 Glipizide (Glucotrol Er) 5 mg DAILY08 PO 02/25/20 08:00 02/27/20 07:44 Lorazepam (Ativan) 1 mg PRN Q8HRS PRN PO ANXIETY / AGITATION 02/24/20 23:15 02/24/20 23:41 Melatonin (Melatonin) 6 mg HS PO 02/25/20 21:00 02/27/20 19:44 Olanzapine (ZyPREXA ZYDIS) 2.5 mg PRN Q4HRS PRN PO psychosis 02/24/20 23:15 02/24/20 23:41 Sertraline HCl (Zoloft) 50 mg DAILY PO 02/25/20 09:00 02/27/20 07:48 Non-Formulary Medication (Menthol (Biofreeze)) 1 sushma PRN DAILY PRN TP PAIN 02/24/20 23:15 UNV Lorazepam (Ativan Inj) 1 mg DAILY IM 02/25/20 11:15 02/27/20 07:51 Haloperidol Lactate (Haldol) 5 mg DAILY IM 02/25/20 11:15 02/27/20 07:48 Magnesium Oxide (Magnesium Oxide) 400 mg BID PO 02/25/20 21:00 02/27/20 19:45 Influenza Virus Vaccine Quadrival (Fluzone Quad Syringe) 0.5 ml ONCE ONCE VAX IM 02/26/20 14:00 02/26/20 14:01 DC 02/26/20 08:31 Risperidone (RisperDAL) 0.5 mg QHS PO 02/26/20 21:00 02/27/20 23:00 02/27/20 19:45 Risperidone (RisperDAL CONSTA) 25 mg Q2WKS IM 02/28/20 09:00 Bupropion HCl (Wellbutrin Xl) 150 mg DAILY PO 02/27/20 10:45 02/29/20 21:00 02/27/20 10:45 Bupropion HCl (Wellbutrin Xl) 300 mg DAILY PO 03/02/20 09:00 02/27/20 14:29 DC Bupropion HCl (Wellbutrin Xl) 300 mg DAILY PO 03/01/20 09:00 Current Medications Medications (Trade) Dose Ordered Sig/Sanna Route PRN Reason Start Time Stop Time Status Last Admin Dose Admin Risperidone (RisperDAL) 0.5 mg QHS PO 02/26/20 21:00 02/27/20 23:00 02/27/20 19:45 Bupropion HCl (Wellbutrin Xl) 150 mg DAILY PO 02/27/20 10:45 02/29/20 21:00 02/27/20 10:45 I have reviewed the current psychotropics carefully including drug interactions. Risk benefit ratio favors no change other than as noted in my dictated progress note. Diagnosis: Problems: (1) Bipolar disorder with psychotic features (2) Schizoaffective disorder, bipolar type (3) Impulse control disorder (4) Anxiety disorder KUNAL BEST MD Feb 27, 2020 20:55
[2020-02-28] MEDS: LEVOTHYROXINE 100 MCG TABLET PO SCH (05:29)
[2020-02-28 06:26] VITALS: BP 136/79
[2020-02-28] MEDS ORDERED: risperiDONE MICROSPHERES 25 MG/2 ML DISP.SYRIN. IM SCH (09:00)
[2020-02-28] MEDS: HALOPERIDOL LACT 5 MG/ML VIAL. IM SCH (09:45)
[2020-02-28] MEDS: DOCUSATE SODIUM 100 MG CAPSULE PO SCH (09:50)
[2020-02-28] MEDS: PANTOPRAZOLE 40 MG TABLET. PO SCH (09:50)
[2020-02-28] MEDS: MAGNESIUM OXIDE 400 MG TABLET PO SCH ×2 (09:50→19:59)
[2020-02-28] MEDS: buPROPion XL 150 MG TAB.ER.24H PO SCH (09:51)
[2020-02-28] MEDS: SERTRALINE 50 MG TABLET. PO SCH (09:51)
[2020-02-28 15:00] VITALS: BP 109/66
--- NOTE | 2020-02-28 18:11 | NUR ---
After breakfast pt became agitated and hostile towards staff. He was escorted to [facility] for time by himself to regulate his emotions. After a period of time pt was calm and complaint with staff directions and requests. He was compliant with all medication administrations. He was then escorted back to his room where he has remained in bed for most of the day. Checks continue q15m. Will continue to monitor and report to oncoming shift.
[2020-02-28] MEDS: DONEPEZIL HCL 10 MG TABLET PO SCH (19:58)
[2020-02-28] MEDS: MELATONIN 3 MG TABLET PO SCH (19:58)
--- NOTE | 2020-02-28 21:03 | PDOC ---
Exam Note: Vincent Note: Please also refer to the separate dictated note~for this date of service dictated separately.~Patient seen individually. Discussed the patient with Nursing staff reviewed the chart.~Reviewed interim history and current functioning. Reviewed vital signs,~Labs/ Radiology~and current medications noted below. Continue current treatment with the changes noted in the dictated addendum note Assessment: Vital Signs/I&O: Vital Signs Date Time Temp Pulse Resp B/P (MAP) Pulse Ox O2 Delivery O2 Flow Rate FiO2 02/28/20 15:00 98.9 76 18 109/66 (80) 97 Room Air I & O 02/27/20 02/27/20 02/28/20 15:00 23:00 07:00 Intake Total 320 ml Balance 320 ml Labs: Laboratory Tests Test 02/28/20 07:50 Glucose (Fingerstick) 111 mg/dL (70-99) H Current Medications: Meds: Laboratory Tests Test 02/28/20 07:50 Glucose (Fingerstick) 111 mg/dL Current Medications Medications (Trade) Dose Ordered Sig/Sanna Route PRN Reason Start Time Stop Time Status Last Admin Dose Admin Acetaminophen (Tylenol) 650 mg PRN Q6HRS PRN PO MILD PAIN / TEMP > 100.3'F 02/24/20 21:45 Multi-Ingredient Ointment (Analgesic [place]) 1 sushma PRN QID PRN TP MUSCLE PAIN 02/24/20 21:45 Al Hydroxide/Mg Hydroxide (Mylanta Plus Xs) 15 ml PRN AFTMEALHC PRN PO DYSPEPSIA 02/24/20 21:45 Magnesium Hydroxide (Milk Of Magnesia) 2,400 mg PRN QHS PRN PO CONSTIPATION 02/24/20 21:45 Donepezil HCl (Aricept) 10 mg HS PO 02/25/20 21:00 02/28/20 19:58 Levothyroxine Sodium (Synthroid) 100 mcg DAILY06 PO 02/25/20 06:00 02/28/20 05:29 Medroxyprogesterone Acetate (Provera) 5 mg BID PO 02/25/20 09:00 02/28/20 19:59 Pantoprazole Sodium (Protonix) 40 mg DAILYAC PO 02/25/20 07:30 02/28/20 09:50 Non-Formulary Medication (Magnesium Hydroxide (Milk Of Magnesia)) 2,400 mg PRN QHS PRN PO CONSTIPATION 02/24/20 22:30 UNV Clozapine (Clozaril) 500 mg HS PO 02/25/20 21:00 02/25/20 18:48 DC Clozapine (Clozaril) 100 mg DAILY PO 02/25/20 09:00 02/25/20 18:48 DC Docusate Sodium (Colace) 100 mg DAILY PO 02/25/20 09:00 02/28/20 09:50 Glipizide (Glucotrol Er) 5 mg DAILY08 PO 02/25/20 08:00 02/28/20 09:51 Lorazepam (Ativan) 1 mg PRN Q8HRS PRN PO ANXIETY / AGITATION 02/24/20 23:15 02/24/20 23:41 Melatonin (Melatonin) 6 mg HS PO 02/25/20 21:00 02/28/20 19:58 Olanzapine (ZyPREXA ZYDIS) 2.5 mg PRN Q4HRS PRN PO psychosis 02/24/20 23:15 02/24/20 23:41 Sertraline HCl (Zoloft) 50 mg DAILY PO 02/25/20 09:00 02/28/20 09:51 Non-Formulary Medication (Menthol (Biofreeze)) 1 sushma PRN DAILY PRN TP PAIN 02/24/20 23:15 UNV Lorazepam (Ativan Inj) 1 mg DAILY IM 02/25/20 11:15 02/28/20 09:42 Haloperidol Lactate (Haldol) 5 mg DAILY IM 02/25/20 11:15 02/28/20 09:45 Magnesium Oxide (Magnesium Oxide) 400 mg BID PO 02/25/20 21:00 02/28/20 19:59 Influenza Virus Vaccine Quadrival (Fluzone Quad [id number] Syringe) 0.5 ml ONCE ONCE VAX IM 02/26/20 14:00 02/26/20 14:01 DC 02/26/20 08:31 Risperidone (RisperDAL) 0.5 mg QHS PO 02/26/20 21:00 02/27/20 23:00 DC 02/27/20 19:45 Risperidone (RisperDAL CONSTA) 25 mg Q2WKS IM 02/28/20 09:00 02/28/20 13:12 Bupropion HCl (Wellbutrin Xl) 150 mg DAILY PO 02/27/20 10:45 02/29/20 21:00 02/28/20 09:51 Bupropion HCl (Wellbutrin Xl) 300 mg DAILY PO 03/02/20 09:00 02/27/20 14:29 DC Bupropion HCl (Wellbutrin Xl) 300 mg DAILY PO 03/01/20 09:00 Current Medications Medications (Trade) Dose Ordered Sig/Sanna Route PRN Reason Start Time Stop Time Status Last Admin Dose Admin Risperidone (RisperDAL CONSTA) 25 mg Q2WKS IM 02/28/20 09:00 02/28/20 13:12 I have reviewed the current psychotropics carefully including drug interactions. Risk benefit ratio favors no change other than as noted in my dictated progress note. Diagnosis: Problems: (1) Impulse control disorder (2) Schizoaffective disorder, bipolar type (3) Bipolar disorder with psychotic features (4) Anxiety disorder KUNAL BEST MD Feb 28, 2020 21:03
--- NOTE | 2020-02-28 23:10 | NUR ---
Nursing Note Pt in room wide eyed and very irritable, when offered meds he states N-O-, and continues to stare off into space. While in the shower, the patient took a swing at the tech in anger, she needed help to keep the situation under control with the wet surfaces mixed with his intense aggression. Non redirectable at that point. Pt laid in bed for quite a while and then agreed to take the meds later.
[2020-02-29] MEDS: LEVOTHYROXINE 100 MCG TABLET PO SCH (05:34)
[2020-02-29 06:23] VITALS: BP 129/74
[2020-02-29] MEDS: MAGNESIUM OXIDE 400 MG TABLET PO SCH ×2 (08:07→20:06)
[2020-02-29] MEDS: buPROPion XL 150 MG TAB.ER.24H PO SCH (08:07)
[2020-02-29] MEDS: DOCUSATE SODIUM 100 MG CAPSULE PO SCH (08:07)
[2020-02-29] MEDS: PANTOPRAZOLE 40 MG TABLET. PO SCH (08:07)
[2020-02-29] MEDS: SERTRALINE 50 MG TABLET. PO SCH (08:08)
[2020-02-29] MEDS: HALOPERIDOL LACT 5 MG/ML VIAL. IM SCH (08:08)
--- NOTE | 2020-02-29 08:18 | PDOC ---
Exam Note: Vincent Note: This note is a late entry for 02/27/2020 covers elements not covered in my initial note. Subjective: The patient was reviewed on telehealth rounds in the morning of 02/27/2020 for a treatment team meeting with Becka Belle and Ngozi (social media content specialist), Priscilla, activity therapy and Emma RN. Discussed with nursing staff, reviewed the chart. The patient slept 5 hours previous night. He has been withdrawn, anxious, restless, somewhat labile in his mood, paranoid, spends much time in bed wanting barbiturates, fixated on this as I met with him in the evening on telehealth rounds. Appetite is 75%. Review of Systems: No CV, , pulmonary, eye, ENT system symptoms on review. Mental Status Exam: The patient is oriented to himself and situation. He is quite withdrawn, paranoid, suspicious. Speech has latency. Often response is monosyllabic. Abstraction is fair. Computation is impaired. Language function is intact. Attention span is short. Mood and affect quite withdrawn, paranoid. No suicidal or homicidal ideation. Laboratory Data: Reviewed. Impression: Schizoaffective disorder, bipolar type, mixed with psychotic features. Major depressive disorder with psychotic features. Impulse control disorder unspecified. Plan: Given the patients marked withdrawal, apathy, poor motivation, depression, we will start him on Wellbutrin XL 150 mg a day for 3 days, then 300 mg a day thereafter. Continue rest of the psychotropics unchanged from initial note. Assessment: Vital Signs/I&O: Vital Signs Date Time Temp Pulse Resp B/P (MAP) Pulse Ox O2 Delivery O2 Flow Rate FiO2 02/29/20 06:23 98.2 81 16 129/74 (92) 97 02/28/20 15:00 Room Air I & O 02/28/20 02/28/20 02/29/20 15:00 23:00 07:00 Intake Total 960 ml Balance 960 ml Labs: Laboratory Tests Test 02/29/20 07:45 Glucose (Fingerstick) 128 mg/dL (70-99) H Current Medications: Meds: Laboratory Tests Test 02/29/20 07:45 Glucose (Fingerstick) 128 mg/dL Current Medications Medications (Trade) Dose Ordered Sig/Sanna Route PRN Reason Start Time Stop Time Status Last Admin Dose Admin Acetaminophen (Tylenol) 650 mg PRN Q6HRS PRN PO MILD PAIN / TEMP > 100.3'F 02/24/20 21:45 Multi-Ingredient Ointment (Analgesic [place]) 1 sushma PRN QID PRN TP MUSCLE PAIN 02/24/20 21:45 Al Hydroxide/Mg Hydroxide (Mylanta Plus Xs) 15 ml PRN AFTMEALHC PRN PO DYSPEPSIA 02/24/20 21:45 Magnesium Hydroxide (Milk Of Magnesia) 2,400 mg PRN QHS PRN PO CONSTIPATION 02/24/20 21:45 Donepezil HCl (Aricept) 10 mg HS PO 02/25/20 21:00 02/28/20 19:58 Levothyroxine Sodium (Synthroid) 100 mcg DAILY06 PO 02/25/20 06:00 02/29/20 05:34 Medroxyprogesterone Acetate (Provera) 5 mg BID PO 02/25/20 09:00 02/28/20 19:59 Pantoprazole Sodium (Protonix) 40 mg DAILYAC PO 02/25/20 07:30 02/28/20 09:50 Non-Formulary Medication (Magnesium Hydroxide (Milk Of Magnesia)) 2,400 mg PRN QHS PRN PO CONSTIPATION 02/24/20 22:30 UNV Clozapine (Clozaril) 500 mg HS PO 02/25/20 21:00 02/25/20 18:48 DC Clozapine (Clozaril) 100 mg DAILY PO 02/25/20 09:00 02/25/20 18:48 DC Docusate Sodium (Colace) 100 mg DAILY PO 02/25/20 09:00 02/28/20 09:50 Glipizide (Glucotrol Er) 5 mg DAILY08 PO 02/25/20 08:00 02/28/20 09:51 Lorazepam (Ativan) 1 mg PRN Q8HRS PRN PO ANXIETY / AGITATION 02/24/20 23:15 02/24/20 23:41 Melatonin (Melatonin) 6 mg HS PO 02/25/20 21:00 02/28/20 19:58 Olanzapine (ZyPREXA ZYDIS) 2.5 mg PRN Q4HRS PRN PO psychosis 02/24/20 23:15 02/24/20 23:41 Sertraline HCl (Zoloft) 50 mg DAILY PO 02/25/20 09:00 02/28/20 09:51 Non-Formulary Medication (Menthol (Biofreeze)) 1 sushma PRN DAILY PRN TP PAIN 02/24/20 23:15 UNV Lorazepam (Ativan Inj) 1 mg DAILY IM 02/25/20 11:15 02/28/20 09:42 Haloperidol Lactate (Haldol) 5 mg DAILY IM 02/25/20 11:15 02/28/20 09:45 Magnesium Oxide (Magnesium Oxide) 400 mg BID PO 02/25/20 21:00 02/28/20 19:59 Influenza Virus Vaccine Quadrival (Fluzone Quad Syringe) 0.5 ml ONCE ONCE VAX IM 02/26/20 14:00 02/26/20 14:01 DC 02/26/20 08:31 Risperidone (RisperDAL) 0.5 mg QHS PO 02/26/20 21:00 02/27/20 23:00 DC 02/27/20 19:45 Risperidone (RisperDAL CONSTA) 25 mg Q2WKS IM 02/28/20 09:00 02/28/20 13:12 Bupropion HCl (Wellbutrin Xl) 150 mg DAILY PO 02/27/20 10:45 02/29/20 21:00 02/28/20 09:51 Bupropion HCl (Wellbutrin Xl) 300 mg DAILY PO 03/02/20 09:00 02/27/20 14:29 DC Bupropion HCl (Wellbutrin Xl) 300 mg DAILY PO 03/01/20 09:00 Current Medications Medications (Trade) Dose Ordered Sig/Sanna Route PRN Reason Start Time Stop Time Status Last Admin Dose Admin Risperidone (RisperDAL CONSTA) 25 mg Q2WKS IM 02/28/20 09:00 02/28/20 13:12 I have reviewed the current psychotropics carefully including drug interactions. Risk benefit ratio favors no change other than as noted in my dictated progress note. Diagnosis: Problems: (1) Bipolar disorder with psychotic features (2) MDD (major depressive disorder) (3) Impulse control disorder (4) Anxiety disorder KUNAL BEST MD Feb 29, 2020 08:18
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
--- NOTE | 2020-02-29 10:25 | NUR ---
Staff heard several loud banging noises. When staff went in the pts room pt had banged his head on the wall. Staff redirected pt and validated pt. When staff asked what can they do to help him right now pt stated "give me a lethal dose of medication." Staff again redirected and validated pt. Staff escorted pt to the quiet room. While in the quiet room staff asked pt if he had suicidal thoughts, pt stated "of course I do." When asked what is his plan he stated "that would be stupid of me to tell you." Nurse validated pts feelings. Pt stated he will feel this way because he is physically incapable of living because he got milk of magnesia poisoning at [facility]. He also feels the staff here will harm him. Nurse reassured pt of his safety. Dr. Ariel corrales. new orders to start risperdal 2mg daily may use tablet or liquid, increase zyprexa zydis from 2.5mg to 5mg q4 hours prn, change PRN ativan to ativan 1mg TID PRN. and 1:1 observation for safety. While nurse was on the phone with Dr. George pt began banging his head against the wall. When nurse intervened he started crying and stated "help me, give me medicine."
[2020-02-29] MEDS ORDERED: LORazepam 1 MG TABLET PO PRN (11:00)
[2020-02-29] MEDS: risperiDONE 2 MG TABLET. PO SCH (11:18)
[2020-02-29] MEDS: ACETAMINOPHEN 325 MG TABLET PO PRN ×2 (11:49→20:07)
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
[2020-02-29 19:36] VITALS: BP 145/89
[2020-02-29] MEDS: DONEPEZIL HCL 10 MG TABLET PO SCH (20:05)
[2020-02-29] MEDS: MELATONIN 3 MG TABLET PO SCH (20:06)
--- NOTE | 2020-02-29 21:01 | PDOC ---
Exam Note: Vincent Note: Please also refer to the separate dictated note~for this date of service dictated separately.~Patient seen individually. Discussed the patient with Nursing staff reviewed the chart.~Reviewed interim history and current functioning. Reviewed vital signs,~Labs/ Radiology~and current medications noted below. Continue current treatment with the changes noted in the dictated addendum note Assessment: Vital Signs/I&O: Vital Signs Date Time Temp Pulse Resp B/P (MAP) Pulse Ox O2 Delivery O2 Flow Rate FiO2 02/29/20 19:36 98.2 97 18 145/89 (107) 97 02/28/20 15:00 Room Air I & O 02/28/20 02/28/20 02/29/20 15:00 23:00 07:00 Intake Total 960 ml Balance 960 ml Labs: Laboratory Tests Test 02/29/20 07:45 Glucose (Fingerstick) 128 mg/dL (70-99) H Current Medications: Meds: Laboratory Tests Test 02/29/20 07:45 Glucose (Fingerstick) 128 mg/dL Current Medications Medications (Trade) Dose Ordered Sig/Sanna Route PRN Reason Start Time Stop Time Status Last Admin Dose Admin Acetaminophen (Tylenol) 650 mg PRN Q6HRS PRN PO MILD PAIN / TEMP > 100.3'F 02/24/20 21:45 02/29/20 20:07 Multi-Ingredient Ointment (Analgesic [place]) 1 sushma PRN QID PRN TP MUSCLE PAIN 02/24/20 21:45 Al Hydroxide/Mg Hydroxide (Mylanta Plus Xs) 15 ml PRN AFTMEALHC PRN PO DYSPEPSIA 02/24/20 21:45 Magnesium Hydroxide (Milk Of Magnesia) 2,400 mg PRN QHS PRN PO CONSTIPATION 02/24/20 21:45 Donepezil HCl (Aricept) 10 mg HS PO 02/25/20 21:00 02/29/20 20:05 Levothyroxine Sodium (Synthroid) 100 mcg DAILY06 PO 02/25/20 06:00 02/29/20 05:34 Medroxyprogesterone Acetate (Provera) 5 mg BID PO 02/25/20 09:00 02/29/20 20:05 Pantoprazole Sodium (Protonix) 40 mg DAILYAC PO 02/25/20 07:30 02/29/20 08:07 Non-Formulary Medication (Magnesium Hydroxide (Milk Of Magnesia)) 2,400 mg PRN QHS PRN PO CONSTIPATION 02/24/20 22:30 UNV Clozapine (Clozaril) 500 mg HS PO 02/25/20 21:00 02/25/20 18:48 DC Clozapine (Clozaril) 100 mg DAILY PO 02/25/20 09:00 02/25/20 18:48 DC Docusate Sodium (Colace) 100 mg DAILY PO 02/25/20 09:00 02/29/20 08:07 Glipizide (Glucotrol Er) 5 mg DAILY08 PO 02/25/20 08:00 02/29/20 08:07 Lorazepam (Ativan) 1 mg PRN Q8HRS PRN PO ANXIETY / AGITATION 02/24/20 23:15 02/29/20 10:59 DC 02/24/20 23:41 Melatonin (Melatonin) 6 mg HS PO 02/25/20 21:00 02/29/20 20:06 Olanzapine (ZyPREXA ZYDIS) 2.5 mg PRN Q4HRS PRN PO psychosis 02/24/20 23:15 02/29/20 11:00 DC 02/24/20 23:41 Sertraline HCl (Zoloft) 50 mg DAILY PO 02/25/20 09:00 02/29/20 08:08 Non-Formulary Medication (Menthol (Biofreeze)) 1 sushma PRN DAILY PRN TP PAIN 02/24/20 23:15 UNV Lorazepam (Ativan Inj) 1 mg DAILY IM 02/25/20 11:15 02/29/20 08:08 Haloperidol Lactate (Haldol) 5 mg DAILY IM 02/25/20 11:15 02/29/20 08:08 Magnesium Oxide (Magnesium Oxide) 400 mg BID PO 02/25/20 21:00 02/29/20 20:06 Influenza Virus Vaccine Quadrival (Fluzone Quad Syringe) 0.5 ml ONCE ONCE VAX IM 02/26/20 14:00 02/26/20 14:01 DC 02/26/20 08:31 Risperidone (RisperDAL) 0.5 mg QHS PO 02/26/20 21:00 02/27/20 23:00 DC 02/27/20 19:45 Risperidone (RisperDAL CONSTA) 25 mg Q2WKS IM 02/28/20 09:00 02/28/20 13:12 Bupropion HCl (Wellbutrin Xl) 150 mg DAILY PO 02/27/20 10:45 02/29/20 21:00 02/29/20 08:07 Bupropion HCl (Wellbutrin Xl) 300 mg DAILY PO 03/02/20 09:00 02/27/20 14:29 DC Bupropion HCl (Wellbutrin Xl) 300 mg DAILY PO 03/01/20 09:00 Lorazepam (Ativan) 1 mg TID PRN PRN PO ANXIETY / AGITATION 02/29/20 11:00 Olanzapine (ZyPREXA ZYDIS) 5 mg PRN Q4HRS PRN PO psychosis 02/29/20 11:00 Risperidone (RisperDAL) 2 mg DAILY PO 02/29/20 11:30 02/29/20 11:18 Current Medications Medications (Trade) Dose Ordered Sig/Sanna Route PRN Reason Start Time Stop Time Status Last Admin Dose Admin Risperidone (RisperDAL) 2 mg DAILY PO 02/29/20 11:30 02/29/20 11:18 I have reviewed the current psychotropics carefully including drug interactions. Risk benefit ratio favors no change other than as noted in my dictated progress note. Diagnosis: Problems: (1) MDD (major depressive disorder) (2) Schizoaffective disorder, bipolar type (3) Bipolar disorder with psychotic features (4) Anxiety disorder (5) Impulse control disorder KUNAL BEST MD Feb 29, 2020 21:01
--- NOTE | 2020-02-29 23:51 | NUR ---
Pt in his room all evening with staff present. Pt on continuous 1:1 observation. Compliant with whole medications. Pt stated that he wants to by banging his head on the wall. Pt had one episode of agitation this evening, posturing at male staff. At one point, pt was sitting on edge of bed as if he was going to slide himself out of his bed onto the floor. Mats placed on floor beside bed for pt safety.
[2020-03-01] MEDS: LEVOTHYROXINE 100 MCG TABLET PO SCH (05:28)
[2020-03-01 06:07] VITALS: BP 135/70
--- NOTE | 2020-03-01 08:20 | PDOC ---
Exam Note: Vincent Note: This note is a late entry for 02/29/2020 covers elements not covered in my initial note. Subjective: The patient was reviewed on telehealth rounds in the evening of 02/29/2020 with Raquel BAIRES. Discussed with nursing staff, reviewed the chart. The patient slept 5-1/4 hours previous night. He had a very difficult day. I was called stat as an emergency this morning as the patient was loudly banging his head on the wall, making repeated statements that he wanted to because we were not giving him barbiturates. He was paranoid, psychotic. We did place him on one-on-one status due to the above and added oral Risperdal 2 mg daily, we may need to increase this. He has been started on Risperdal Const[place] 25 mg IM q. 2 weeks and also remains on the daily Haldol, Ativan IM combination due to failure of oral psychotropics. Review of Systems: Positive for tiredness. No CV, , pulmonary, eye, ENT system symptoms on review. Mental Status Exam: The patient is oriented to himself and situation. Speech moderate latency. Often response is monosyllabic. Abstraction is fair. Computation is impaired. Language function is intact. Attention span is short. Mood and affect depressed, withdrawn, paranoid. Laboratory Data: Reviewed. Impression: Schizoaffective disorder, bipolar type, mixed with psychotic features. Major depressive disorder with psychotic features. Impulse control disorder unspecified. Plan: Continue one-on-one status. Risperdal has been added oral 2 mg daily, we may need to increase this. We may also need to adjust the Zoloft and Wellbutrin is being gradually increased to 300 mg a day on 03/01. Adjust further as clinically indicated. Assessment: Vital Signs/I&O: Vital Signs Date Time Temp Pulse Resp B/P (MAP) Pulse Ox O2 Delivery O2 Flow Rate FiO2 03/01/20 06:07 97.6 79 18 135/70 (91) 93 Room Air I & O 02/29/20 02/29/20 03/01/20 15:00 23:00 07:00 Intake Total 360 ml 600 ml Balance 360 ml 600 ml Labs: Laboratory Tests Test 03/01/20 07:33 Glucose (Fingerstick) 144 mg/dL (70-99) H Current Medications: Meds: Laboratory Tests Test 03/01/20 07:33 Glucose (Fingerstick) 144 mg/dL Current Medications Medications (Trade) Dose Ordered Sig/Sanna Route PRN Reason Start Time Stop Time Status Last Admin Dose Admin Acetaminophen (Tylenol) 650 mg PRN Q6HRS PRN PO MILD PAIN / TEMP > 100.3'F 02/24/20 21:45 02/29/20 20:07 Multi-Ingredient Ointment (Analgesic [place]) 1 sushma PRN QID PRN TP MUSCLE PAIN 02/24/20 21:45 Al Hydroxide/Mg Hydroxide (Mylanta Plus Xs) 15 ml PRN AFTMEALHC PRN PO DYSPEPSIA 02/24/20 21:45 Magnesium Hydroxide (Milk Of Magnesia) 2,400 mg PRN QHS PRN PO CONSTIPATION 02/24/20 21:45 Donepezil HCl (Aricept) 10 mg HS PO 02/25/20 21:00 02/29/20 20:05 Levothyroxine Sodium (Synthroid) 100 mcg DAILY06 PO 02/25/20 06:00 03/01/20 05:28 Medroxyprogesterone Acetate (Provera) 5 mg BID PO 02/25/20 09:00 02/29/20 20:05 Pantoprazole Sodium (Protonix) 40 mg DAILYAC PO 02/25/20 07:30 02/29/20 08:07 Non-Formulary Medication (Magnesium Hydroxide (Milk Of Magnesia)) 2,400 mg PRN QHS PRN PO CONSTIPATION 02/24/20 22:30 UNV Clozapine (Clozaril) 500 mg HS PO 02/25/20 21:00 02/25/20 18:48 DC Clozapine (Clozaril) 100 mg DAILY PO 02/25/20 09:00 02/25/20 18:48 DC Docusate Sodium (Colace) 100 mg DAILY PO 02/25/20 09:00 02/29/20 08:07 Glipizide (Glucotrol Er) 5 mg DAILY08 PO 02/25/20 08:00 02/29/20 08:07 Lorazepam (Ativan) 1 mg PRN Q8HRS PRN PO ANXIETY / AGITATION 02/24/20 23:15 02/29/20 10:59 DC 02/24/20 23:41 Melatonin (Melatonin) 6 mg HS PO 02/25/20 21:00 02/29/20 20:06 Olanzapine (ZyPREXA ZYDIS) 2.5 mg PRN Q4HRS PRN PO psychosis 02/24/20 23:15 02/29/20 11:00 DC 02/24/20 23:41 Sertraline HCl (Zoloft) 50 mg DAILY PO 02/25/20 09:00 02/29/20 08:08 Non-Formulary Medication (Menthol (Biofreeze)) 1 sushma PRN DAILY PRN TP PAIN 02/24/20 23:15 UNV Lorazepam (Ativan Inj) 1 mg DAILY IM 02/25/20 11:15 02/29/20 08:08 Haloperidol Lactate (Haldol) 5 mg DAILY IM 02/25/20 11:15 02/29/20 08:08 Magnesium Oxide (Magnesium Oxide) 400 mg BID PO 02/25/20 21:00 02/29/20 20:06 Influenza Virus Vaccine Quadrival (Fluzone Quad Syringe) 0.5 ml ONCE ONCE VAX IM 02/26/20 14:00 02/26/20 14:01 DC 02/26/20 08:31 Risperidone (RisperDAL) 0.5 mg QHS PO 02/26/20 21:00 02/27/20 23:00 DC 02/27/20 19:45 Risperidone (RisperDAL CONSTA) 25 mg Q2WKS IM 02/28/20 09:00 02/28/20 13:12 Bupropion HCl (Wellbutrin Xl) 150 mg DAILY PO 02/27/20 10:45 02/29/20 21:00 DC 02/29/20 08:07 Bupropion HCl (Wellbutrin Xl) 300 mg DAILY PO 03/02/20 09:00 02/27/20 14:29 DC Bupropion HCl (Wellbutrin Xl) 300 mg DAILY PO 03/01/20 09:00 Lorazepam (Ativan) 1 mg TID PRN PRN PO ANXIETY / AGITATION 02/29/20 11:00 Olanzapine (ZyPREXA ZYDIS) 5 mg PRN Q4HRS PRN PO psychosis 02/29/20 11:00 Risperidone (RisperDAL) 2 mg DAILY PO 02/29/20 11:30 02/29/20 11:18 Current Medications Medications (Trade) Dose Ordered Sig/Sanna Route PRN Reason Start Time Stop Time Status Last Admin Dose Admin Risperidone (RisperDAL) 2 mg DAILY PO 02/29/20 11:30 02/29/20 11:18 I have reviewed the current psychotropics carefully including drug interactions. Risk benefit ratio favors no change other than as noted in my dictated progress note. Diagnosis: Problems: (1) Schizoaffective disorder, bipolar type (2) Bipolar disorder with psychotic features (3) Impulse control disorder (4) Anxiety disorder KUNAL BEST MD Mar 01, 2020 08:20
[2020-03-01] MEDS: PANTOPRAZOLE 40 MG TABLET. PO SCH (09:19)
[2020-03-01] MEDS: DOCUSATE SODIUM 100 MG CAPSULE PO SCH (09:20)
[2020-03-01] MEDS: SERTRALINE 50 MG TABLET. PO SCH (09:22)
[2020-03-01] MEDS: MAGNESIUM OXIDE 400 MG TABLET PO SCH ×2 (09:22→20:27)
[2020-03-01] MEDS: risperiDONE 2 MG TABLET. PO SCH (09:22)
[2020-03-01] MEDS: buPROPion XL 300 MG TAB.ER.24H. PO SCH (09:22)
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
[2020-03-01] MEDS: ACETAMINOPHEN 325 MG TABLET PO PRN (10:11)
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
[2020-03-01 16:03] VITALS: BP 148/76
[2020-03-01] MEDS: DONEPEZIL HCL 10 MG TABLET PO SCH (20:27)
[2020-03-01] MEDS: MELATONIN 3 MG TABLET PO SCH (20:27)
--- NOTE | 2020-03-01 21:00 | PDOC ---
Exam Note: Vincent Note: Please also refer to the separate dictated note~for this date of service dictated separately.~Patient seen individually. Discussed the patient with Nursing staff reviewed the chart.~Reviewed interim history and current functioning. Reviewed vital signs,~Labs/ Radiology~and current medications noted below. Continue current treatment with the changes noted in the dictated addendum note Assessment: Vital Signs/I&O: Vital Signs Date Time Temp Pulse Resp B/P (MAP) Pulse Ox O2 Delivery O2 Flow Rate FiO2 03/01/20 16:03 98.0 115 16 148/76 (100) 98 03/01/20 06:07 Room Air I & O 02/29/20 02/29/20 03/01/20 14:59 22:59 06:59 Intake Total 360 ml 600 ml Balance 360 ml 600 ml Labs: Laboratory Tests Test 03/01/20 07:33 Glucose (Fingerstick) 144 mg/dL (70-99) H Current Medications: Meds: Laboratory Tests Test 03/01/20 07:33 Glucose (Fingerstick) 144 mg/dL Current Medications Medications (Trade) Dose Ordered Sig/Sanna Route PRN Reason Start Time Stop Time Status Last Admin Dose Admin Acetaminophen (Tylenol) 650 mg PRN Q6HRS PRN PO MILD PAIN / TEMP > 100.3'F 02/24/20 21:45 03/01/20 10:11 Multi-Ingredient Ointment (Analgesic [place]) 1 sushma PRN QID PRN TP MUSCLE PAIN 02/24/20 21:45 Al Hydroxide/Mg Hydroxide (Mylanta Plus Xs) 15 ml PRN AFTMEALHC PRN PO DYSPEPSIA 02/24/20 21:45 Magnesium Hydroxide (Milk Of Magnesia) 2,400 mg PRN QHS PRN PO CONSTIPATION 02/24/20 21:45 Donepezil HCl (Aricept) 10 mg HS PO 02/25/20 21:00 03/01/20 20:27 Levothyroxine Sodium (Synthroid) 100 mcg DAILY06 PO 02/25/20 06:00 03/01/20 05:28 Medroxyprogesterone Acetate (Provera) 5 mg BID PO 02/25/20 09:00 03/01/20 20:27 Pantoprazole Sodium (Protonix) 40 mg DAILYAC PO 02/25/20 07:30 03/01/20 09:19 Non-Formulary Medication (Magnesium Hydroxide (Milk Of Magnesia)) 2,400 mg PRN QHS PRN PO CONSTIPATION 02/24/20 22:30 UNV Clozapine (Clozaril) 500 mg HS PO 02/25/20 21:00 02/25/20 18:48 DC Clozapine (Clozaril) 100 mg DAILY PO 02/25/20 09:00 02/25/20 18:48 DC Docusate Sodium (Colace) 100 mg DAILY PO 02/25/20 09:00 03/01/20 09:20 Glipizide (Glucotrol Er) 5 mg DAILY08 PO 02/25/20 08:00 03/01/20 09:19 Lorazepam (Ativan) 1 mg PRN Q8HRS PRN PO ANXIETY / AGITATION 02/24/20 23:15 02/29/20 10:59 DC 02/24/20 23:41 Melatonin (Melatonin) 6 mg HS PO 02/25/20 21:00 03/01/20 20:27 Olanzapine (ZyPREXA ZYDIS) 2.5 mg PRN Q4HRS PRN PO psychosis 02/24/20 23:15 02/29/20 11:00 DC 02/24/20 23:41 Sertraline HCl (Zoloft) 50 mg DAILY PO 02/25/20 09:00 03/01/20 09:22 Non-Formulary Medication (Menthol (Biofreeze)) 1 sushma PRN DAILY PRN TP PAIN 02/24/20 23:15 UNV Lorazepam (Ativan Inj) 1 mg DAILY IM 02/25/20 11:15 02/29/20 08:08 Haloperidol Lactate (Haldol) 5 mg DAILY IM 02/25/20 11:15 02/29/20 08:08 Magnesium Oxide (Magnesium Oxide) 400 mg BID PO 02/25/20 21:00 03/01/20 20:27 Influenza Virus Vaccine Quadrival (Fluzone Quad Syringe) 0.5 ml ONCE ONCE VAX IM 02/26/20 14:00 02/26/20 14:01 DC 02/26/20 08:31 Risperidone (RisperDAL) 0.5 mg QHS PO 02/26/20 21:00 02/27/20 23:00 DC 02/27/20 19:45 Risperidone (RisperDAL CONSTA) 25 mg Q2WKS IM 02/28/20 09:00 02/28/20 13:12 Bupropion HCl (Wellbutrin Xl) 150 mg DAILY PO 02/27/20 10:45 02/29/20 21:00 DC 02/29/20 08:07 Bupropion HCl (Wellbutrin Xl) 300 mg DAILY PO 03/02/20 09:00 02/27/20 14:29 DC Bupropion HCl (Wellbutrin Xl) 300 mg DAILY PO 03/01/20 09:00 03/01/20 09:22 Lorazepam (Ativan) 1 mg TID PRN PRN PO ANXIETY / AGITATION 02/29/20 11:00 Olanzapine (ZyPREXA ZYDIS) 5 mg PRN Q4HRS PRN PO psychosis 02/29/20 11:00 Risperidone (RisperDAL) 2 mg DAILY PO 02/29/20 11:30 03/01/20 09:22 Current Medications Medications (Trade) Dose Ordered Sig/Sanna Route PRN Reason Start Time Stop Time Status Last Admin Dose Admin Bupropion HCl (Wellbutrin Xl) 300 mg DAILY PO 03/01/20 09:00 03/01/20 09:22 I have reviewed the current psychotropics carefully including drug interactions. Risk benefit ratio favors no change other than as noted in my dictated progress note. Diagnosis: Problems: (1) Schizoaffective disorder, bipolar type (2) MDD (major depressive disorder) (3) Impulse control disorder (4) Bipolar disorder with psychotic features (5) Anxiety disorder KUNAL BEST MD Mar 01, 2020 21:00
--- NOTE | 2020-03-01 21:46 | NUR ---
Pt located in his room all evening with 1:1 sitter. Pt irritable, initially refusing to acknowledge this RN with his HS medications. Pt eventually compliant with whole medications after much coaxing from this RN. No agitation or aggression this evening.
[2020-03-02] MEDS: LEVOTHYROXINE 100 MCG TABLET PO SCH (05:25)
[2020-03-02 05:46] VITALS: BP 157/98
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
[2020-03-02] MEDS ORDERED: buPROPion XL 300 MG TAB.ER.24H. PO SCH (09:00)
[2020-03-02] MEDS: DOCUSATE SODIUM 100 MG CAPSULE PO SCH (09:36)
[2020-03-02] MEDS: MAGNESIUM OXIDE 400 MG TABLET PO SCH ×2 (09:36→20:32)
[2020-03-02] MEDS: PANTOPRAZOLE 40 MG TABLET. PO SCH (09:36)
[2020-03-02] MEDS: risperiDONE 2 MG TABLET. PO SCH (09:36)
[2020-03-02] MEDS: SERTRALINE 50 MG TABLET. PO SCH (09:37)
[2020-03-02] MEDS: buPROPion XL 300 MG TAB.ER.24H. PO SCH (09:37)
[2020-03-02 10:05] VITALS: BP 142/100
--- NOTE | 2020-03-02 10:11 | NUR ---
1005: Nurse asked security to standby with medication administration. Pt took medication without incident. When nurse assessed pt, pts appeared to have worsening tremors, pt reported difficulty swallowing, when auscultating chest pt sounded tachycardic. Vital signs obtained: 142/100-manual, 136, 97.9, 99% on RA. his L pupil appears larger than his right and is more sluggish. Dr. Muhammad paged [phone]: Dr Muhammad called back with a new order: STAT CT of the head.
--- NOTE | 2020-03-02 10:51 | RAD ---
CT HEAD/BRAIN WO Clinical indications: banging head on the wall and floor COMPARISON: August 09, 2019. Technique: Noncontrast axial cross sectional scanning of the head was performed. PQRS compliance Statement One or more of the following individualized dose reduction techniques were utilized for this study: 1. Automated exposure control 2. Adjustment of the mA and/or kV according to patient size 3. Use of iterative reconstruction technique Findings: No acute intracranial hemorrhage or midline shift or mass-effect or hydrocephalus or extra- axial fluid collection is seen. No focal hypodense area or sulci effacement is seen to indicate an ac [place]roquois infarct or edema radiographically. No skull fracture or pneumocephalus is seen. No opacification of the mastoid sinuses or the middle ear cavities or the paranasal sinuses is seen. The maxillary si nuses are not completely seen in this study. IMPRESSION: No acute intracranial abnormality is seen. Electronically signed by: Kenji Madrigal MD (03/02/2020 10:46 AM) [id number]
[2020-03-02 12:26] LABS: BASO % 0 % (0-3); EOS % 0 % (0-3); HEMATOCRIT 40.1 % (39.0-53.0); HEMOGLOBIN 13.2 g/dL (13.0-17.5); LYMPH % 13 % (24-48); MEAN CORPUSCULAR HEMOGLOBIN 28 pg (25-35); MEAN CORPUSCULAR HGB CONC 33 g/dL (31-37); MEAN CORPUSCULAR VOLUME 84 fL (79-100); MONO # 0.6 x10^3/uL (0.0-1.1); MONO % 8 % (0-9); NEUT % 79 % (31-73); PLATELET COUNT 257 x10^3/uL (140-400); RED BLOOD COUNT 4.76 x10^6/uL (4.30-5.70); RED CELL DISTRIBUTION WIDTH 16.2 % (11.5-14.5); WHITE BLOOD COUNT 7.6 x10^3/uL (4.0-11.0)
[2020-03-02 12:36] LABS: CALCIUM 9.4 mg/dL (8.5-10.1); GFR 75.7; POTASSIUM 3.8 mmol/L (3.5-5.1)
[2020-03-02 12:47] LABS: ALBUMIN 3.5 g/dL (3.4-5.0); ALBUMIN/GLOBULIN RATIO 1.1 (1.0-1.7); TOTAL PROTEIN 6.7 g/dL (6.4-8.2)
--- NOTE | 2020-03-02 13:36 | NUR ---
Upon review of pts chart and medication nurses observed pts metoprolol 75mg BID did not get restarted. Dr. Muhammad informed. new order to restart metoprolol 75mg BID.
[2020-03-02 13:50] VITALS: BP 146/84
[2020-03-02] MEDS: METOPROLOL TART IMMED RELEASE 25 MG TABLET. PO SCH ×2 (13:54→20:34)
[2020-03-02 15:58] VITALS: BP 150/87
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
[2020-03-02] MEDS: DONEPEZIL HCL 10 MG TABLET PO SCH (20:32)
[2020-03-02] MEDS: MELATONIN 3 MG TABLET PO SCH (20:32)
--- NOTE | 2020-03-02 21:03 | RAD ---
XR CHEST 2V History: Reason: possible aspiration with cough and congestion. / Spl. Instructions: / History: Comparison: August 09, 2019 Findings: No consolidation or pleural effusion. Normal heart size. No pneumothorax. Postop changes right upper quadrant. Impression: 1. No acute cardiopulmonary process. Electronically signed by: Rakan Coleman DO (03/02/2020 9:01 PM) [facility] [place]
--- NOTE | 2020-03-02 21:07 | PDOC ---
Exam Note: Vincent Note: Please also refer to the separate dictated note~for this date of service dictated separately.~Patient seen individually. Discussed the patient with Nursing staff reviewed the chart.~Reviewed interim history and current functioning. Reviewed vital signs,~Labs/ Radiology~and current medications noted below. Continue current treatment with the changes noted in the dictated addendum note Assessment: Vital Signs/I&O: Vital Signs Date Time Temp Pulse Resp B/P (MAP) Pulse Ox O2 Delivery O2 Flow Rate FiO2 03/02/20 20:34 69 150/87 03/02/20 15:58 97.4 16 96 03/01/20 06:07 Room Air I & O 03/01/20 03/01/20 03/02/20 15:00 23:00 07:00 Intake Total 600 ml 360 ml Balance 600 ml 360 ml Labs: Laboratory Tests Test 03/02/20 07:43 03/02/20 12:15 Glucose (Fingerstick) 131 mg/dL (70-99) H White Blood Count 7.6 x10^3/uL (4.0-11.0) Red Blood Count 4.76 x10^6/uL (4.30-5.70) Hemoglobin 13.2 g/dL (13.0-17.5) Hematocrit 40.1 % (39.0-53.0) Mean Corpuscular Volume 84 fL (79-100) Mean Corpuscular Hemoglobin 28 pg (25-35) Mean Corpuscular Hemoglobin Concent 33 g/dL (31-37) Red Cell Distribution Width 16.2 % (11.5-14.5) H Platelet Count 257 x10^3/uL (140-400) Neutrophils (%) (Auto) 79 % (31-73) H Lymphocytes (%) (Auto) 13 % (24-48) L Monocytes (%) (Auto) 8 % (0-9) Eosinophils (%) (Auto) 0 % (0-3) Basophils (%) (Auto) 0 % (0-3) Neutrophils # (Auto) 6.0 x10^3uL (1.8-7.7) Lymphocytes # (Auto) 1.0 x10^3/uL (1.0-4.8) Monocytes # (Auto) 0.6 x10^3/uL (0.0-1.1) Eosinophils # (Auto) 0.0 x10^3/uL (0.0-0.7) Basophils # (Auto) 0.0 x10^3/uL (0.0-0.2) Sodium Level 140 mmol/L (136-145) Potassium Level 3.8 mmol/L (3.5-5.1) Chloride Level 103 mmol/L (98-107) Carbon Dioxide Level 32 mmol/L (21-32) Anion Gap 5 (6-14) L Blood Urea Nitrogen 11 mg/dL (8-26) Creatinine 1.0 mg/dL (0.7-1.3) Estimated GFR (Cockcroft-Gault) 75.7 BUN/Creatinine Ratio 11 (6-20) Glucose Level 142 mg/dL (70-99) H Calcium Level 9.4 mg/dL (8.5-10.1) Total Bilirubin 1.0 mg/dL (0.2-1.0) Aspartate Amino Transferase (AST) 12 U/L (15-37) L Alanine Aminotransferase (ALT) 27 U/L (16-63) Alkaline Phosphatase 95 U/L (46-116) Creatine Kinase 65 U/L (39-308) Total Protein 6.7 g/dL (6.4-8.2) Albumin 3.5 g/dL (3.4-5.0) Albumin/Globulin Ratio 1.1 (1.0-1.7) Current Medications: Meds: Laboratory Tests Test 03/02/20 07:43 03/02/20 12:15 Glucose (Fingerstick) 131 mg/dL White Blood Count 7.6 x10^3/uL Red Blood Count 4.76 x10^6/uL Hemoglobin 13.2 g/dL Hematocrit 40.1 % Mean Corpuscular Volume 84 fL Mean Corpuscular Hemoglobin 28 pg Mean Corpuscular Hemoglobin Concent 33 g/dL Red Cell Distribution Width 16.2 % Platelet Count 257 x10^3/uL Neutrophils (%) (Auto) 79 % Lymphocytes (%) (Auto) 13 % Monocytes (%) (Auto) 8 % Eosinophils (%) (Auto) 0 % Basophils (%) (Auto) 0 % Neutrophils # (Auto) 6.0 x10^3uL Lymphocytes # (Auto) 1.0 x10^3/uL Monocytes # (Auto) 0.6 x10^3/uL Eosinophils # (Auto) 0.0 x10^3/uL Basophils # (Auto) 0.0 x10^3/uL Sodium Level 140 mmol/L Potassium Level 3.8 mmol/L Chloride Level 103 mmol/L Carbon Dioxide Level 32 mmol/L Anion Gap 5 Blood Urea Nitrogen 11 mg/dL Creatinine 1.0 mg/dL Estimated GFR (Cockcroft-Gault) 75.7 BUN/Creatinine Ratio 11 Glucose Level 142 mg/dL Calcium Level 9.4 mg/dL Total Bilirubin 1.0 mg/dL Aspartate Amino Transf (AST/SGOT) 12 U/L Alanine Aminotransferase (ALT/SGPT) 27 U/L Alkaline Phosphatase 95 U/L Creatine Kinase 65 U/L Total Protein 6.7 g/dL Albumin 3.5 g/dL Albumin/Globulin Ratio 1.1 Current Medications Medications (Trade) Dose Ordered Sig/Sanna Route PRN Reason Start Time Stop Time Status Last Admin Dose Admin Acetaminophen (Tylenol) 650 mg PRN Q6HRS PRN PO MILD PAIN / TEMP > 100.3'F 02/24/20 21:45 03/01/20 10:11 Multi-Ingredient Ointment (Analgesic [place]) 1 sushma PRN QID PRN TP MUSCLE PAIN 02/24/20 21:45 Al Hydroxide/Mg Hydroxide (Mylanta Plus Xs) 15 ml PRN AFTMEALHC PRN PO DYSPEPSIA 02/24/20 21:45 Magnesium Hydroxide (Milk Of Magnesia) 2,400 mg PRN QHS PRN PO CONSTIPATION 02/24/20 21:45 Donepezil HCl (Aricept) 10 mg HS PO 02/25/20 21:00 03/02/20 20:32 Levothyroxine Sodium (Synthroid) 100 mcg DAILY06 PO 02/25/20 06:00 03/01/20 05:28 Medroxyprogesterone Acetate (Provera) 5 mg BID PO 02/25/20 09:00 03/02/20 20:32 Pantoprazole Sodium (Protonix) 40 mg DAILYAC PO 02/25/20 07:30 03/02/20 09:36 Non-Formulary Medication (Magnesium Hydroxide (Milk Of Magnesia)) 2,400 mg PRN QHS PRN PO CONSTIPATION 02/24/20 22:30 UNV Clozapine (Clozaril) 500 mg HS PO 02/25/20 21:00 02/25/20 18:48 DC Clozapine (Clozaril) 100 mg DAILY PO 02/25/20 09:00 02/25/20 18:48 DC Docusate Sodium (Colace) 100 mg DAILY PO 02/25/20 09:00 03/02/20 09:36 Glipizide (Glucotrol Er) 5 mg DAILY08 PO 02/25/20 08:00 03/02/20 09:36 Lorazepam (Ativan) 1 mg PRN Q8HRS PRN PO ANXIETY / AGITATION 02/24/20 23:15 02/29/20 10:59 DC 02/24/20 23:41 Melatonin (Melatonin) 6 mg HS PO 02/25/20 21:00 03/02/20 20:32 Olanzapine (ZyPREXA ZYDIS) 2.5 mg PRN Q4HRS PRN PO psychosis 02/24/20 23:15 02/29/20 11:00 DC 02/24/20 23:41 Sertraline HCl (Zoloft) 50 mg DAILY PO 02/25/20 09:00 03/02/20 09:37 Non-Formulary Medication (Menthol (Biofreeze)) 1 sushma PRN DAILY PRN TP PAIN 02/24/20 23:15 UNV Lorazepam (Ativan Inj) 1 mg DAILY IM 02/25/20 11:15 03/02/20 11:31 DC 02/29/20 08:08 Haloperidol Lactate (Haldol) 5 mg DAILY IM 02/25/20 11:15 03/02/20 11:31 DC 02/29/20 08:08 Magnesium Oxide (Magnesium Oxide) 400 mg BID PO 02/25/20 21:00 03/02/20 20:32 Influenza Virus Vaccine Quadrival (Fluzone Quad Syringe) 0.5 ml ONCE ONCE VAX IM 02/26/20 14:00 02/26/20 14:01 DC 02/26/20 08:31 Risperidone (RisperDAL) 0.5 mg QHS PO 02/26/20 21:00 02/27/20 23:00 DC 02/27/20 19:45 Risperidone (RisperDAL CONSTA) 25 mg Q2WKS IM 02/28/20 09:00 02/28/20 13:12 Bupropion HCl (Wellbutrin Xl) 150 mg DAILY PO 02/27/20 10:45 02/29/20 21:00 DC 02/29/20 08:07 Bupropion HCl (Wellbutrin Xl) 300 mg DAILY PO 03/02/20 09:00 02/27/20 14:29 DC Bupropion HCl (Wellbutrin Xl) 300 mg DAILY PO 03/01/20 09:00 03/02/20 09:37 Lorazepam (Ativan) 1 mg TID PRN PRN PO ANXIETY / AGITATION 02/29/20 11:00 Olanzapine (ZyPREXA ZYDIS) 5 mg PRN Q4HRS PRN PO psychosis 02/29/20 11:00 Risperidone (RisperDAL) 2 mg DAILY PO 02/29/20 11:30 03/02/20 09:36 Metoprolol Tartrate (Lopressor) 75 mg BID PO 03/02/20 13:45 03/02/20 20:34 Current Medications Medications (Trade) Dose Ordered Sig/Sanna Route PRN Reason Start Time Stop Time Status Last Admin Dose Admin Metoprolol Tartrate (Lopressor) 75 mg BID PO 03/02/20 13:45 03/02/20 20:34 I have reviewed the current psychotropics carefully including drug interactions. Risk benefit ratio favors no change other than as noted in my dictated progress note. Diagnosis: Problems: (1) MDD (major depressive disorder) (2) Impulse control disorder (3) Anxiety disorder (4) Bipolar disorder with psychotic features (5) Schizoaffective disorder, bipolar type KUNAL BEST MD Mar 02, 2020 21:07
--- NOTE | 2020-03-02 23:56 | NUR ---
Pt located in his room with 1:1 sitter. Pt compliant with whole medications. No agitation or combativeness this evening. Pt noted to have coarse lung sounds, wheezes bilaterally, and a moist productive cough. Dr. Jb corrales. Received orders for CXR and speech therapy consult.
[2020-03-03 05:37] VITALS: BP 115/71
[2020-03-03] MEDS: LEVOTHYROXINE 100 MCG TABLET PO SCH (05:37)
[2020-03-03 06:00] LABS: HEMATOCRIT 41.3 % (39.0-53.0); HEMOGLOBIN 13.3 g/dL (13.0-17.5); RED BLOOD COUNT 4.84 x10^6/uL (4.30-5.70); RED CELL DISTRIBUTION WIDTH 16.1 % (11.5-14.5); WHITE BLOOD COUNT 6.9 x10^3/uL (4.0-11.0)
[2020-03-03 06:19] LABS: ALBUMIN 3.4 g/dL (3.4-5.0); CALCIUM 9.3 mg/dL (8.5-10.1); CREATININE 1.1 mg/dL (0.7-1.3); GFR 67.8; POTASSIUM 4.7 mmol/L (3.5-5.1); TOTAL BILIRUBIN 1.5 mg/dL (0.2-1.0); TOTAL PROTEIN 6.7 g/dL (6.4-8.2)
[2020-03-03 08:19] VITALS: BP 178/80
[2020-03-03] MEDS: METOPROLOL TART IMMED RELEASE 25 MG TABLET. PO SCH (08:19)
--- NOTE | 2020-03-03 08:20 | PDOC ---
Exam Note: Vincent Note: This note is a late entry for 03/02/2020 covers elements not covered in my initial note. Subjective: The patient was reviewed on telehealth rounds in the morning of 03/02/2020 for a treatment team meeting with Kylah Renteria, Becka Belle and Ngozi (high school social studies tutor), Priscilla, activity therapy and Genia BAIRES. Discussed with nursing staff, reviewed the chart. The patient slept 7-1/4 hours previous night. I met with the patient on telehealth rounds in the evening. He remains on one-on-one status. He has had some increased tremors. His temperature and oxygen are unchanged. He has sinus tachycardia, heart rate in 120s, crackles in his lungs in the right upper lobe. There was a question whether he might have neuroleptic malignant syndrome. We are checking serum prolactin, CK and CBC. We will consult Dr. Goncalves. However, by my rounds in the evening, nursing staff had clarified his admission medications and apparently the metoprolol he was taking prior to admission had not been continued during this hospitalization. He has since been restarted on it and his heart rate is down to 69, BP is 150/87 in the evening. EKG QT corrected interval is 449 unremarkable. The patient remains depressed, withdrawn, still voicing suicidal ideation, refuses to share a plan. He gets intermittently aggressive at staff. Review of Systems: Impaired ambulation, tiredness. No CV, , pulmonary, eye, ENT system symptoms on review. Mental Status Exam: The patient is oriented to himself and situation. Speech moderate latency. Often response is monosyllabic. He is obsessing wanting barbiturates. Abstraction is fair. Computation is impaired. Language function is intact. Attention span is short. Mood and affect withdrawn. Laboratory Data: Reviewed. Impression: Schizoaffective disorder, bipolar type, mixed with psychotic fea tures. Major depressive disorder with psychotic features. Impulse control disorder unspecified. Plan: Continue current psychotropics noted in my initial note with changes noted above. Assessment: Vital Signs/I&O: Vital Signs Date Time Temp Pulse Resp B/P (MAP) Pulse Ox O2 Delivery O2 Flow Rate FiO2 03/03/20 05:37 97.6 64 18 115/71 (86) 100 Room Air I & O 03/02/20 03/02/2003/03/21 15:00 23:00 07:00 Intake Total 0 ml 0 ml Balance 0 ml 0 ml Labs: Laboratory Tests Test 03/02/20 12:15 03/03/20 05:47 03/03/20 07:11 White Blood Count 7.6 x10^3/uL (4.0-11.0) 6.9 x10^3/uL (4.0-11.0) Red Blood Count 4.76 x10^6/uL (4.30-5.70) 4.84 x10^6/uL (4.30-5.70) Hemoglobin 13.2 g/dL (13.0-17.5) 13.3 g/dL (13.0-17.5) Hematocrit 40.1 % (39.0-53.0) 41.3 % (39.0-53.0) Mean Corpuscular Volume 84 fL (79-100) 85 fL (79-100) Mean Corpuscular Hemoglobin 28 pg (25-35) 28 pg (25-35) Mean Corpuscular Hemoglobin Concent 33 g/dL (31-37) 32 g/dL (31-37) Red Cell Distribution Width 16.2 % (11.5-14.5) H 16.1 % (11.5-14.5) H Platelet Count 257 x10^3/uL (140-400) 278 x10^3/uL (140-400) Neutrophils (%) (Auto) 79 % (31-73) H Lymphocytes (%) (Auto) 13 % (24-48) L Monocytes (%) (Auto) 8 % (0-9) Eosinophils (%) (Auto) 0 % (0-3) Basophils (%) (Auto) 0 % (0-3) Neutrophils # (Auto) 6.0 x10^3uL (1.8-7.7) Lymphocytes # (Auto) 1.0 x10^3/uL (1.0-4.8) Monocytes # (Auto) 0.6 x10^3/uL (0.0-1.1) Eosinophils # (Auto) 0.0 x10^3/uL (0.0-0.7) Basophils # (Auto) 0.0 x10^3/uL (0.0-0.2) Sodium Level 140 mmol/L (136-145) 143 mmol/L (136-145) Potassium Level 3.8 mmol/L (3.5-5.1) 4.7 mmol/L (3.5-5.1) Chloride Level 103 mmol/L (98-107) 106 mmol/L (98-107) Carbon Dioxide Level 32 mmol/L (21-32) 30 mmol/L (21-32) Anion Gap 5 (6-14) L 7 (6-14) Blood Urea Nitrogen 11 mg/dL (8-26) 13 mg/dL (8-26) Creatinine 1.0 mg/dL (0.7-1.3) 1.1 mg/dL (0.7-1.3) Estimated GFR (Cockcroft-Gault) 75.7 67.8 BUN/Creatinine Ratio 11 (6-20) 12 (6-20) Glucose Level 142 mg/dL (70-99) H 115 mg/dL (70-99) H Calcium Level 9.4 mg/dL (8.5-10.1) 9.3 mg/dL (8.5-10.1) Total Bilirubin 1.0 mg/dL (0.2-1.0) 1.5 mg/dL (0.2-1.0) H Aspartate Amino Transferase (AST) 12 U/L (15-37) L 16 U/L (15-37) Alanine Aminotransferase (ALT) 27 U/L (16-63) 25 U/L (16-63) Alkaline Phosphatase 95 U/L (46-116) 95 U/L (46-116) Creatine Kinase 65 U/L (39-308) Total Protein 6.7 g/dL (6.4-8.2) 6.7 g/dL (6.4-8.2) Albumin 3.5 g/dL (3.4-5.0) 3.4 g/dL (3.4-5.0) Albumin/Globulin Ratio 1.1 (1.0-1.7) 1.0 (1.0-1.7) Prolactin 43.6 ng/mL (4.0-15.2) H Glucose (Fingerstick) 124 mg/dL (70-99) H Current Medications: Meds: Laboratory Tests Test 03/02/20 12:15 03/03/20 05:47 03/03/20 07:11 White Blood Count 7.6 x10^3/uL 6.9 x10^3/uL Red Blood Count 4.76 x10^6/uL 4.84 x10^6/uL Hemoglobin 13.2 g/dL 13.3 g/dL Hematocrit 40.1 % 41.3 % Mean Corpuscular Volume 84 fL 85 fL Mean Corpuscular Hemoglobin 28 pg 28 pg Mean Corpuscular Hemoglobin Concent 33 g/dL 32 g/dL Red Cell Distribution Width 16.2 % 16.1 % Platelet Count 257 x10^3/uL 278 x10^3/uL Neutrophils (%) (Auto) 79 % Lymphocytes (%) (Auto) 13 % Monocytes (%) (Auto) 8 % Eosinophils (%) (Auto) 0 % Basophils (%) (Auto) 0 % Neutrophils # (Auto) 6.0 x10^3uL Lymphocytes # (Auto) 1.0 x10^3/uL Monocytes # (Auto) 0.6 x10^3/uL Eosinophils # (Auto) 0.0 x10^3/uL Basophils # (Auto) 0.0 x10^3/uL Sodium Level 140 mmol/L 143 mmol/L Potassium Level 3.8 mmol/L 4.7 mmol/L Chloride Level 103 mmol/L 106 mmol/L Carbon Dioxide Level 32 mmol/L 30 mmol/L Anion Gap 5 7 Blood Urea Nitrogen 11 mg/dL 13 mg/dL Creatinine 1.0 mg/dL 1.1 mg/dL Estimated GFR (Cockcroft-Gault) 75.7 67.8 BUN/Creatinine Ratio 11 12 Glucose Level 142 mg/dL 115 mg/dL Calcium Level 9.4 mg/dL 9.3 mg/dL Total Bilirubin 1.0 mg/dL 1.5 mg/dL Aspartate Amino Transf (AST/SGOT) 12 U/L 16 U/L Alanine Aminotransferase (ALT/SGPT) 27 U/L 25 U/L Alkaline Phosphatase 95 U/L 95 U/L Creatine Kinase 65 U/L Total Protein 6.7 g/dL 6.7 g/dL Albumin 3.5 g/dL 3.4 g/dL Albumin/Globulin Ratio 1.1 1.0 Prolactin 43.6 ng/mL Glucose (Fingerstick) 124 mg/dL Current Medications Medications (Trade) Dose Ordered Sig/Sanna Route PRN Reason Start Time Stop Time Status Last Admin Dose Admin Acetaminophen (Tylenol) 650 mg PRN Q6HRS PRN PO MILD PAIN / TEMP > 100.3'F 02/24/20 21:45 03/01/20 10:11 Multi-Ingredient Ointment (Analgesic [place]) 1 sushma PRN QID PRN TP MUSCLE PAIN 02/24/20 21:45 Al Hydroxide/Mg Hydroxide (Mylanta Plus Xs) 15 ml PRN AFTMEALHC PRN PO DYSPEPSIA 02/24/20 21:45 Magnesium Hydroxide (Milk Of Magnesia) 2,400 mg PRN QHS PRN PO CONSTIPATION 02/24/20 21:45 Donepezil HCl (Aricept) 10 mg HS PO 02/25/20 21:00 03/02/20 20:32 Levothyroxine Sodium (Synthroid) 100 mcg DAILY06 PO 02/25/20 06:00 03/03/20 05:37 Medroxyprogesterone Acetate (Provera) 5 mg BID PO 02/25/20 09:00 03/02/20 20:32 Pantoprazole Sodium (Protonix) 40 mg DAILYAC PO 02/25/20 07:30 03/02/20 09:36 Non-Formulary Medication (Magnesium Hydroxide (Milk Of Magnesia)) 2,400 mg PRN QHS PRN PO CONSTIPATION 02/24/20 22:30 UNV Clozapine (Clozaril) 500 mg HS PO 02/25/20 21:00 02/25/20 18:48 DC Clozapine (Clozaril) 100 mg DAILY PO 02/25/20 09:00 02/25/20 18:48 DC Docusate Sodium (Colace) 100 mg DAILY PO 02/25/20 09:00 03/02/20 09:36 Glipizide (Glucotrol Er) 5 mg DAILY08 PO 02/25/20 08:00 03/02/20 09:36 Lorazepam (Ativan) 1 mg PRN Q8HRS PRN PO ANXIETY / AGITATION 02/24/20 23:15 02/29/20 10:59 DC 02/24/20 23:41 Melatonin (Melatonin) 6 mg HS PO 02/25/20 21:00 03/02/20 20:32 Olanzapine (ZyPREXA ZYDIS) 2.5 mg PRN Q4HRS PRN PO psychosis 02/24/20 23:15 02/29/20 11:00 DC 02/24/20 23:41 Sertraline HCl (Zoloft) 50 mg DAILY PO 02/25/20 09:00 03/02/20 09:37 Non-Formulary Medication (Menthol (Biofreeze)) 1 sushma PRN DAILY PRN TP PAIN 02/24/20 23:15 UNV Lorazepam (Ativan Inj) 1 mg DAILY IM 02/25/20 11:15 03/02/20 11:31 DC 02/29/20 08:08 Haloperidol Lactate (Haldol) 5 mg DAILY IM 02/25/20 11:15 03/02/20 11:31 DC 02/29/20 08:08 Magnesium Oxide (Magnesium Oxide) 400 mg BID PO 02/25/20 21:00 03/02/20 20:32 Influenza Virus Vaccine Quadrival (Fluzone Quad [id number] Syringe) 0.5 ml ONCE ONCE VAX IM 02/26/20 14:00 02/26/20 14:01 DC 02/26/20 08:31 Risperidone (RisperDAL) 0.5 mg QHS PO 02/26/20 21:00 02/27/20 23:00 DC 02/27/20 19:45 Risperidone (RisperDAL CONSTA) 25 mg Q2WKS IM 02/28/20 09:00 02/28/20 13:12 Bupropion HCl (Wellbutrin Xl) 150 mg DAILY PO 02/27/20 10:45 02/29/20 21:00 DC 02/29/20 08:07 Bupropion HCl (Wellbutrin Xl) 300 mg DAILY PO 03/02/20 09:00 02/27/20 14:29 DC Bupropion HCl (Wellbutrin Xl) 300 mg DAILY PO 03/01/20 09:00 03/02/20 09:37 Lorazepam (Ativan) 1 mg TID PRN PRN PO ANXIETY / AGITATION 02/29/20 11:00 Olanzapine (ZyPREXA ZYDIS) 5 mg PRN Q4HRS PRN PO psychosis 02/29/20 11:00 Risperidone (RisperDAL) 2 mg DAILY PO 1/9/21 11:30 03/02/20 09:36 Metoprolol Tartrate (Lopressor) 75 mg BID PO 03/02/20 13:45 03/02/20 20:34 Current Medications Medications (Trade) Dose Ordered Sig/Sanna Route PRN Reason Start Time Stop Time Status Last Admin Dose Admin Metoprolol Tartrate (Lopressor) 75 mg BID PO 03/02/20 13:45 03/02/20 20:34 I have reviewed the current psychotropics carefully including drug interactions. Risk benefit ratio favors no change other than as noted in my dictated progress note. Diagnosis: Problems: (1) Schizoaffective disorder, bipolar type (2) MDD (major depressive disorder) (3) Bipolar disorder with psychotic features (4) Impulse control disorder (5) Anxiety disorder KUNAL BEST MD Mar 03, 2020 08:20
--- NOTE | 2020-03-03 08:30 | NUR ---
Patient was initially combative with cares this morning, attempting to punch the OTR DRIVER as she completed the FSBS. About 0745, 1:1 sitter reports patient having increased difficulty breathing. Patient has a moist cough with moderate amounts of sputum; primary nurse attempted to suction with scant return. Automatic SV=065/78, Manual right arm EE=620/80, primary nurse administered scheduled BP medication. Patient placed on NBR at 5Lpm, SpO2=95%; paged, no new orders at this time. Patient became diaphoretic on his torso and upper extremities, skin cool to the touch; lethargic and slow to respond to questions. SpO2 is in the upper 80%s, O2 increased to 10Lpm. Patient continues to de-sat, SpO2 is now in the upper 60%s to low 70%s. Rapid response called at about 0830.
--- NOTE | 2020-03-03 08:40 | NUR ---
Transition Record was faxed to follow-up provider with the following elements: Reason for admission, procedures, tests, principal diagnosis, pending studies, patient instructions, 12/09 contact information for unit, phone number to obtain pending test results, plan for follow-up care, physician follow-up, advanced directive information, and medication list with dose, duration and instructions. This information was included in the following documents: History and physical, lab results, study results, progress notes, social work planning form, DC instruction form, patient visit summary, and medication reconciliation form. Date & time record faxed: Record faxed to: Record discussed with/ report given to: Sandy BAIRES & Loreto RN in [facility] ICU. Copies of chart were made and hand delivered to ICU.
[2020-03-03] MEDS ORDERED: MAGN400T5 PO (17:45)
[2020-03-03] MEDS ORDERED: PANT40TA6 PO (17:45)
[2020-03-03] MEDS ORDERED: MEDR2.5T28 PO (17:45)
[2020-03-03] MEDS ORDERED: MELA3CAP2 PO (17:45)
[2020-03-03] MEDS ORDERED: OLAN5TAB3 PO (17:45)
[2020-03-03] MEDS ORDERED: DOCU100C28 PO (17:45)
[2020-03-03] MEDS ORDERED: DONE10TA7 PO (17:45)
[2020-03-03] MEDS ORDERED: METO25TA4 PO (17:45)
[2020-03-03] MEDS ORDERED: BUPR300T92 PO (17:45)
[2020-03-03] MEDS ORDERED: LEVO100T5 PO (17:45)
[2020-03-03] MEDS ORDERED: METH57CR17 TP (17:45)
[2020-03-03] MEDS ORDERED: RISP2TAB33 PO (17:45)
[2020-03-03] MEDS ORDERED: RISP25DI IM (17:45)
[2020-03-03] MEDS ORDERED: SERT50TA PO (17:45)
[2020-03-03] MEDS ORDERED: GLIP5TAB22 PO (17:45)
[2020-03-03] MEDS ORDERED: ACET-1874 PO (17:45)
--- NOTE | 2020-03-03 21:18 | DS ---
DATE OF DISCHARGE: 03/03/2020 DISCHARGE SUMMARY/PSYCHIATRIC PROGRESS NOTE This note covers elements not covered in my initial note on 03/03/2020. REASON FOR ADMISSION: Please refer to the admission history for details. Briefly, the patient is a 64-year-old male who returns back to us from [facility] on account of an acute exacerbation of his schizoaffective disorder, bipolar type, mixed with psychotic features. The patient was making repeated statements that he wanted to . He was noncompliant with his medications, hitting staff, agitated, yelling, cursing at staff, isolating himself. He was recently taken off hospice on 02/11/2020 for failure to thrive. He had failed outpatient psychiatric interventions resulting in this referral. SIGNIFICANT FINDINGS AND CLINICAL COURSE: Following admission, the patient was seen daily individually by myself from a psychiatric standpoint, medical followup with Dr. Vera/Dr. Muhammad. Review of his past stay with us indicated he had responded well to Clozaril, but he had been refusing this in the recent past with worsening of his psychotic symptoms, agitation, depression and aggressive behaviors. Given his noncompliance with Clozaril and the fact of significant side effects with intermittent usage, we opted to change to Risperdal Consta 25 mg IM every 2 weeks after we noted no allergy opposed to oral dosages. He was also started on oral Risperdal given his marked psychotic symptoms at 2 mg a day and Zoloft 50 mg a day. The patient remained quite psychotic, depressed, was threatening suicide, placed on one-on-one status continued to be aggressive, disruptive, hitting at nursing staff, demanding barbiturates. Adjustments will be made in his psychotropics, but on 03/03/2020, he was found to have low oxygen saturations despite 10 liters of oxygen with possibility of aspiration pneumonia, respiratory distress and was transferred to the ICU per Dr. Vera/Dr. Muhammad. MENTAL STATUS EXAM: Prior to discharge, oriented to himself and situation. Speech moderate latency, often responses monosyllabic. Abstraction fair, computation impaired, language function intact, attention span short. Mood and affect withdrawn with suicidal ideation persisting no active plan though he refused to share any of this information during conversation. FINAL DIAGNOSES: Schizoaffective disorder, bipolar type, mixed with psychotic features; impulse control disorder; anxiety disorder, unspecified; acute respiratory failure. Rest diagnosis unchanged from admission. DISCHARGE MEDICATIONS: Please refer to the MRAD. DISCHARGE INSTRUCTIONS: Psychiatric medical followup in the ICU. Time for discharge day management greater than 30 minutes. KUNAL BEST MD DR: MARRY/merced JOB#: [id number] / [id number]
--- NOTE | 2020-03-03 21:19 | PDOC ---
Exam Note: Vincent Note: Please also refer to the separate dictated note~for this date of service dictated separately.~Patient seen individually. Discussed the patient with Nursing staff reviewed the chart.~Reviewed interim history and current functioning. Reviewed vital signs,~Labs/ Radiology~and current medications noted below. Continue current treatment with the changes noted in the dictated addendum note Assessment: Vital Signs/I&O: Vital Signs Date Time Temp Pulse Resp B/P (MAP) Pulse Ox O2 Delivery O2 Flow Rate FiO2 03/03/20 08:19 76 178/80 03/03/20 05:37 97.6 18 100 Room Air I & O 03/02/20 03/02/20 03/03/20 15:00 23:00 07:00 Intake Total 0 ml 0 ml Balance 0 ml 0 ml Labs: Laboratory Tests Test 03/03/20 05:47 03/03/20 07:11 03/03/20 08:36 White Blood Count 6.9 x10^3/uL (4.0-11.0) Red Blood Count 4.84 x10^6/uL (4.30-5.70) Hemoglobin 13.3 g/dL (13.0-17.5) Hematocrit 41.3 % (39.0-53.0) Mean Corpuscular Volume 85 fL (79-100) Mean Corpuscular Hemoglobin 28 pg (25-35) Mean Corpuscular Hemoglobin Concent 32 g/dL (31-37) Red Cell Distribution Width 16.1 % (11.5-14.5) H Platelet Count 278 x10^3/uL (140-400) Sodium Level 143 mmol/L (136-145) Potassium Level 4.7 mmol/L (3.5-5.1) Chloride Level 106 mmol/L (98-107) Carbon Dioxide Level 30 mmol/L (21-32) Anion Gap 7 (6-14) Blood Urea Nitrogen 13 mg/dL (8-26) Creatinine 1.1 mg/dL (0.7-1.3) Estimated GFR (Cockcroft-Gault) 67.8 BUN/Creatinine Ratio 12 (6-20) Glucose Level 115 mg/dL (70-99) H Calcium Level 9.3 mg/dL (8.5-10.1) Total Bilirubin 1.5 mg/dL (0.2-1.0) H Aspartate Amino Transferase (AST) 16 U/L (15-37) Alanine Aminotransferase (ALT) 25 U/L (16-63) Alkaline Phosphatase 95 U/L (46-116) Total Protein 6.7 g/dL (6.4-8.2) Albumin 3.4 g/dL (3.4-5.0) Albumin/Globulin Ratio 1.0 (1.0-1.7) Glucose (Fingerstick) 124 mg/dL (70-99) H 238 mg/dL (70-99) H Current Medications: Meds: Laboratory Tests Test 03/03/20 05:47 03/03/20 07:11 03/03/20 08:36 White Blood Count 6.9 x10^3/uL Red Blood Count 4.84 x10^6/uL Hemoglobin 13.3 g/dL Hematocrit 41.3 % Mean Corpuscular Volume 85 fL Mean Corpuscular Hemoglobin 28 pg Mean Corpuscular Hemoglobin Concent 32 g/dL Red Cell Distribution Width 16.1 % Platelet Count 278 x10^3/uL Sodium Level 143 mmol/L Potassium Level 4.7 mmol/L Chloride Level 106 mmol/L Carbon Dioxide Level 30 mmol/L Anion Gap 7 Blood Urea Nitrogen 13 mg/dL Creatinine 1.1 mg/dL Estimated GFR (Cockcroft-Gault) 67.8 BUN/Creatinine Ratio 12 Glucose Level 115 mg/dL Calcium Level 9.3 mg/dL Total Bilirubin 1.5 mg/dL Aspartate Amino Transf (AST/SGOT) 16 U/L Alanine Aminotransferase (ALT/SGPT) 25 U/L Alkaline Phosphatase 95 U/L Total Protein 6.7 g/dL Albumin 3.4 g/dL Albumin/Globulin Ratio 1.0 Glucose (Fingerstick) 124 mg/dL 238 mg/dL Current Medications Medications (Trade) Dose Ordered Sig/Sanna Route PRN Reason Start Time Stop Time Status Last Admin Dose Admin Acetaminophen (Tylenol) 650 mg PRN Q6HRS PRN PO MILD PAIN / TEMP > 100.3'F 02/24/20 21:45 03/03/20 08:34 DC 03/01/20 10:11 Multi-Ingredient Ointment (Analgesic Milbank) 1 sushma PRN QID PRN TP MUSCLE PAIN 02/24/20 21:45 03/03/20 08:34 DC Al Hydroxide/Mg Hydroxide (Mylanta Plus Xs) 15 ml PRN AFTMEALHC PRN PO DYSPEPSIA 02/24/20 21:45 03/03/20 08:34 DC Magnesium Hydroxide (Milk Of Magnesia) 2,400 mg PRN QHS PRN PO CONSTIPATION 02/24/20 21:45 03/03/20 08:34 DC Donepezil HCl (Aricept) 10 mg HS PO 02/25/20 21:00 03/03/20 08:34 DC 03/02/20 20:32 Levothyroxine Sodium (Synthroid) 100 mcg DAILY06 PO 02/25/20 06:00 03/03/20 08:34 DC 03/03/20 05:37 Medroxyprogesterone Acetate (Provera) 5 mg BID PO 02/25/20 09:00 03/03/20 08:34 DC 03/02/20 20:32 Pantoprazole Sodium (Protonix) 40 mg DAILYAC PO 02/25/20 07:30 03/03/20 08:34 DC 03/02/20 09:36 Non-Formulary Medication (Magnesium Hydroxide (Milk Of Magnesia)) 2,400 mg PRN QHS PRN PO CONSTIPATION 02/24/20 22:30 UNV Clozapine (Clozaril) 500 mg HS PO 02/25/20 21:00 02/25/20 18:48 DC Clozapine (Clozaril) 100 mg DAILY PO 02/25/20 09:00 02/25/20 18:48 DC Docusate Sodium (Colace) 100 mg DAILY PO 02/25/20 09:00 03/03/20 08:34 DC 03/02/20 09:36 Glipizide (Glucotrol Er) 5 mg DAILY08 PO 02/25/20 08:00 03/03/20 08:34 DC 03/02/20 09:36 Lorazepam (Ativan) 1 mg PRN Q8HRS PRN PO ANXIETY / AGITATION 02/24/20 23:15 02/29/20 10:59 DC 02/24/20 23:41 Melatonin (Melatonin) 6 mg HS PO 02/25/20 21:00 03/03/20 08:34 DC 03/02/20 20:32 Olanzapine (ZyPREXA ZYDIS) 2.5 mg PRN Q4HRS PRN PO psychosis 02/24/20 23:15 02/29/20 11:00 DC 02/24/20 23:41 Sertraline HCl (Zoloft) 50 mg DAILY PO 02/25/20 09:00 03/03/20 08:34 DC 03/02/20 09:37 Non-Formulary Medication (Menthol (Biofreeze)) 1 sushma PRN DAILY PRN TP PAIN 02/24/20 23:15 UNV Lorazepam (Ativan Inj) 1 mg DAILY IM 02/25/20 11:15 03/02/20 11:31 DC 02/29/20 08:08 Haloperidol Lactate (Haldol) 5 mg DAILY IM 02/25/20 11:15 03/02/20 11:31 DC 02/29/20 08:08 Magnesium Oxide (Magnesium Oxide) 400 mg BID PO 02/25/20 21:00 03/03/20 08:34 DC 03/02/20 20:32 Influenza Virus Vaccine Quadrival (Fluzone Quad Syringe) 0.5 ml ONCE ONCE VAX IM 02/26/20 14:00 02/26/20 14:01 DC 02/26/20 08:31 Risperidone (RisperDAL) 0.5 mg QHS PO 02/26/20 21:00 02/27/20 23:00 DC 02/27/20 19:45 Risperidone (RisperDAL CONSTA) 25 mg Q2WKS IM 02/28/20 09:00 03/03/20 08:34 DC 02/28/20 13:12 Bupropion HCl (Wellbutrin Xl) 150 mg DAILY PO 02/27/20 10:45 02/29/20 21:00 DC 02/29/20 08:07 Bupropion HCl (Wellbutrin Xl) 300 mg DAILY PO 03/02/20 09:00 02/27/20 14:29 DC Bupropion HCl (Wellbutrin Xl) 300 mg DAILY PO 03/01/20 09:00 03/03/20 08:34 DC 03/02/20 09:37 Lorazepam (Ativan) 1 mg TID PRN PRN PO ANXIETY / AGITATION 02/29/20 11:00 03/03/20 08:34 DC Olanzapine (ZyPREXA ZYDIS) 5 mg PRN Q4HRS PRN PO psychosis 02/29/20 11:00 03/03/20 08:34 DC Risperidone (RisperDAL) 2 mg DAILY PO 02/29/20 11:30 03/03/20 08:34 DC 03/02/20 09:36 Metoprolol Tartrate (Lopressor) 75 mg BID PO 03/02/20 13:45 03/03/20 08:34 DC 03/03/20 08:19 I have reviewed the current psychotropics carefully including drug interactions. Risk benefit ratio favors no change other than as noted in my dictated progress note. Diagnosis: Problems: (1) Bipolar disorder with psychotic features (2) Impulse control disorder (3) Schizoaffective disorder, bipolar type KUNAL BEST MD Mar 03, 2020 21:19
== END 2020-03-03 08:32 | disposition short-term general hospital (02) | DRG 885 ==
LOC: GEROPSY 21:26
PROVIDERS: ADMIT Psychiatry & Neurology Psychiatry; ATTEND Psychiatry & Neurology Psychiatry
DX: F25.0 Schizoaffective disorder, bipolar type (principal); J96.00 Acute respiratory failure, unspecified whether with hypoxia or hypercapnia; R45.851 Suicidal ideations; F41.9 Anxiety disorder, unspecified; F63.9 Impulse disorder, unspecified; N18.2 Chronic kidney disease, stage 2 (mild); E03.9 Hypothyroidism, unspecified; Z20.822 Contact with and (suspected) exposure to COVID-19; E11.22 Type 2 diabetes mellitus with diabetic chronic kidney disease; E78.5 Hyperlipidemia, unspecified; E83.42 Hypomagnesemia; N40.0 Benign prostatic hyperplasia without lower urinary tract symptoms; G47.00 Insomnia, unspecified; Z66 Do not resuscitate; Z79.899 Other long term (current) drug therapy; Z87.01 Personal history of pneumonia (recurrent); Z91.14 Patient's other noncompliance with medication regimen; Z91.19 Patient's noncompliance with other medical treatment and regimen
CPT/HCPCS: 36415; 70450; 71046; 80053; 80061; 81001; 82306; 82550; 82607; 82947; 83036; 83540; 83550; 83735; 84146; 84436; 84443; 84480; 85025; 85027; 85379; 86592; 90471; 90686; 93005; J1630; J2060; J2794; U0003

== ENCOUNTER 2020-03-03 08:38 | Inpatient (IN) | payer MEDICARE, MEDICAID ==
[~2020-03-03] VITALS: Ht 170.2 cm; Wt 59.8 kg
[2020-03-03] VITALS (20 sets, daily range): BP systolic 72–159; BP diastolic 42–77
[~2020-03-03 08:38] MED LIST changes: +CLOZ100T PO; +LORA-254 PO; +MELA3TAB4 PO; +MENT118G TP; +METO25TA4 PO; +SERT50TA PO
[2020-03-03] MEDS ORDERED: NALOXONE 0.4 MG/ML VIAL. IV ONE (09:00)
[2020-03-03] MEDS ORDERED: FLUMAZENIL 0.5 MG/5 ML VIAL. IV ONE (09:00)
[2020-03-03 09:02] LABS: BGAS PH 7.18 (7.35-7.46)
[2020-03-03 09:03] LABS: CALCIUM 9.3 mg/dL (8.5-10.1); CREATININE 1.1 mg/dL (0.7-1.3); GFR 67.8; POTASSIUM 4.5 mmol/L (3.5-5.1)
[2020-03-03 09:09] LABS: BASO % 0 % (0-3); EOS % 0 % (0-3); HEMATOCRIT 43.2 % (39.0-53.0); HEMOGLOBIN 13.5 g/dL (13.0-17.5); LYMPH # 4.2 x10^3/uL (1.0-4.8); LYMPH % 28 % (24-48); MEAN CORPUSCULAR HEMOGLOBIN 27 pg (25-35); MEAN CORPUSCULAR HGB CONC 31 g/dL (31-37); MEAN CORPUSCULAR VOLUME 86 fL (79-100); MONO # 1.2 x10^3/uL (0.0-1.1); MONO % 8 % (0-9); NEUT # 9.6 x10^3uL (1.8-7.7); NEUT % 64 % (31-73); PLATELET COUNT 407 x10^3/uL (140-400); RED BLOOD COUNT 5.03 x10^6/uL (4.30-5.70); RED CELL DISTRIBUTION WIDTH 16.6 % (11.5-14.5); WHITE BLOOD COUNT 15.1 x10^3/uL (4.0-11.0)
[2020-03-03 09:39] LABS: % BANDS 4 % (0-9); % LYMPHS 28 % (24-48); % MONOS 6 % (0-10); % SEGS 62 % (35-66)
[2020-03-03 09:41] LABS: PLATELET CLUMP PRESENT; PLT ESTIMATE INCREASED (ADEQUATE)
[2020-03-03] MEDS ORDERED: PIPERACILLIN/TAZOBACTAM 3.375 GM in IV NORMAL SALINE 50ML 50 ML IV ONE (10:00)
--- NOTE | 2020-03-03 10:12 | RAD ---
XR CHEST 1V Clinical Indication: Reason: shortness of breath Comparison: Two-view chest, March 02, 2020. Findings: The cardiomediastinal silhouette is normal. Lungs are clear. There is no pneumothorax. No pleural eff usion is appreciated. No acute bone abnormality. Degenerative endplate spurring of the thoracic spine . Surgical clips right upper abdomen. IMPRESSION: No acute cardiopulmonary process. Electronically signed by: Sony Crawford MD (03/03/2020 10:10 AM) [id number]
--- NOTE | 2020-03-03 10:23 | HP ---
ADMIT DATE: 03/03/2020 ATTENDING PHYSICIAN: Dr. Crain. CHIEF COMPLAINT: Respiratory distress. HISTORY OF PRESENT ILLNESS: The patient is an unfortunate 64-year-old gentleman with extensive longstanding history of schizoaffective disorder, dementia, psychosis, behavioral issues. I had seen him on the floor the last week. He was fairly out of control. He literally was banging his head against the wall. He had to have 1 on 1 patient's corporate safety director to look after him. He really did not give much history. There is an elderly father who is not involved in his care. He has been institutionalized in a halfway for most of his adult life. I did speak with a court appointed guardian who was able to give much of the history. He could not provide further history. He had increasing respiratory distress. He was obtunded. He had hypercarbic respiratory failure for probable hypoventilation. Supplemental oxygen up to 100% was added along with BiPAP. He seems to be waking up. I reviewed his medications. We did give him empiric Romazicon and Narcan without any beneficial effects. He had been on risperidone and other antipsychotics, which needs to be metabolized before he wakes up. He is a DNR per advanced directive. CURRENT MEDICATIONS: Reviewed. On the floor, he was taking Clozaril clozapine, docusate, Aricept, glipizide, Synthroid, lorazepam, magnesium hydroxide, medroxyprogesterone acetate, melatonin, Biofreeze, metoprolol, Zyprexa, Zoloft, and Protonix. ALLERGIES: He has no recorded drug allergies. PAST SURGICAL HISTORY: Unobtainable. FAMILY HISTORY: Never . He has an elderly father who is not involved in his care. He has a court appointed attorney at law through the [facility] office. He lives in a halfway in [place], [place]. REVIEW OF SYSTEMS: Unobtainable due to the patient's condition. PHYSICAL EXAMINATION: GENERAL: When I saw him, this is an obtunded gentleman who was nonverbal. INITIAL VITAL SIGNS: Showed a blood pressure of 130 systolic. He appears afebrile. His peripheral pulses are palpable and full. HEENT: Head is without trauma. Pupils are reactive. Sclerae are nonicteric. The oropharynx is clear. NECK: Supple, no bruits identified. LUNGS: Shallow respirations. CARDIOVASCULAR: Showed regular heart tones. No obvious gallops. Peripheral pulses are palpable and full. ABDOMEN: Soft, scaphoid, nontender to palpation. Bowel sounds were hypoactive. EXTREMITIES: Showed some cyanosis, no edema. NEUROLOGIC: Obtunded, nonverbal, and nonambulatory. SKIN: Cool to touch. PERTINENT LABORATORY STUDIES: Stat portable chest x-ray showed the heart size to be within normal range. No acute infiltrates identified. There is some atelectasis and scarring at the bases. Stat arterial blood gas done earlier showed a pH of 7.18, pCO2 of 85 mmHg, pO2 of 86 mmHg. The hemoglobin is 13.5 g/dL with a white count of 15,100. Electrolytes are fairly unremarkable. The sodium is 141 mEq, potassium 4.5 mEq, creatinine is 1.1 mg/dL, BUN 15. Nonfasting blood sugar 236, calcium was normal. ASSESSMENT: 1. A 64-year-old gentleman with probable aspiration pneumonia. 2. Acute hypercarbic respiratory failure. 3. Longstanding schizoaffective disorder with behavioral issues. 4. Sedation resulting in hypoventilation. PLAN: 1. Admit to the ICU from the [facility]. 2. BiPAP has been initiated with the weaning down supplemental oxygen requirement. 3. Gentle IV hydration. 4. I will start empiric Zosyn adjusted for renal clearance. 5. Psychiatric meds have been held. 6. Consultation for Dr. George to continue his psych meds once he is stable. MARGE CRAIN MD DR: DOROTHY/merced JOB#: [id number] / [id number] KUNAL Saxena MD
[2020-03-03] MEDS: IV NORMAL SALINE 1,000ML 1,000 ML IV SCH ×2 (10:57→20:01)
[2020-03-03] MEDS: PIPERACILLIN/TAZOBACTAM 3.375 GM in IV NORMAL SALINE 50ML 50 ML IV SCH ×2 (16:53→21:38)
[2020-03-03] MEDS ORDERED: RISP2TAB33 PO (17:45)
[2020-03-03] MEDS ORDERED: METO25TA4 PO (17:45)
[2020-03-03] MEDS ORDERED: OLAN5TAB3 PO (17:45)
[2020-03-03] MEDS ORDERED: SERT50TA PO (17:45)
[2020-03-03] MEDS ORDERED: DOCU100C28 PO (17:45)
[2020-03-03] MEDS ORDERED: MELA3CAP2 PO (17:45)
[2020-03-03] MEDS ORDERED: MEDR2.5T28 PO (17:45)
[2020-03-03] MEDS ORDERED: BUPR300T92 PO (17:45)
[2020-03-03] MEDS ORDERED: MAGN400T5 PO (17:45)
[2020-03-03] MEDS ORDERED: GLIP5TAB22 PO (17:45)
[2020-03-03] MEDS ORDERED: PANT40TA6 PO (17:45)
[2020-03-03] MEDS ORDERED: RISP25DI IM (17:45)
[2020-03-03] MEDS ORDERED: LEVO100T5 PO (17:45)
[2020-03-03] MEDS ORDERED: METH57CR17 TP (17:45)
[2020-03-03] MEDS ORDERED: ACET-1874 PO (17:45)
[2020-03-03] MEDS ORDERED: DONE10TA7 PO (17:45)
[2020-03-03] MEDS ORDERED: IV NORMAL SALINE 1,000ML 1,000 ML IV ONE (18:30)
[2020-03-04] VITALS (23 sets, daily range): BP systolic 82–122; BP diastolic 42–65
[2020-03-04] MEDS: PIPERACILLIN/TAZOBACTAM 3.375 GM in IV NORMAL SALINE 50ML 50 ML IV SCH ×4 (04:17→21:24)
[2020-03-04 06:33] LABS: BASO % 0 % (0-3); EOS % 0 % (0-3); HEMATOCRIT 32.6 % (39.0-53.0); HEMOGLOBIN 10.3 g/dL (13.0-17.5); LYMPH # 1.3 x10^3/uL (1.0-4.8); LYMPH % 10 % (24-48); MEAN CORPUSCULAR HEMOGLOBIN 27 pg (25-35); MEAN CORPUSCULAR HGB CONC 32 g/dL (31-37); MEAN CORPUSCULAR VOLUME 87 fL (79-100); MONO # 1.2 x10^3/uL (0.0-1.1); MONO % 9 % (0-9); NEUT # 10.7 x10^3uL (1.8-7.7); NEUT % 81 % (31-73); PLATELET COUNT 214 x10^3/uL (140-400); RED BLOOD COUNT 3.77 x10^6/uL (4.30-5.70); RED CELL DISTRIBUTION WIDTH 16.2 % (11.5-14.5); WHITE BLOOD COUNT 13.2 x10^3/uL (4.0-11.0)
[2020-03-04 06:42] LABS: ALBUMIN 2.4 g/dL (3.4-5.0); ALBUMIN/GLOBULIN RATIO 0.9 (1.0-1.7); CALCIUM 8.4 mg/dL (8.5-10.1); CREATININE 1.3 mg/dL (0.7-1.3); GFR 55.9; POTASSIUM 4.1 mmol/L (3.5-5.1); TOTAL BILIRUBIN 1.7 mg/dL (0.2-1.0); TOTAL PROTEIN 5.2 g/dL (6.4-8.2)
[2020-03-04] MEDS ORDERED: DEXTROSE 50% 25 GM / 50ML DISP.SYRIN. IV PRN (11:45)
[2020-03-04] MEDS ORDERED: INSULIN LISPRO 300 UNITS/3 ML VIAL. SQ PRN (11:45)
--- NOTE | 2020-03-04 12:36 | PN ---
DATE: 03/04/2020 SUBJECTIVE: The patient is a 64-year-old male patient, who was transferred yesterday from [facility] on account of altered mental status. He was diagnosed with acute hypoxic hypercapnic respiratory failure and probable aspiration pneumonia. It was felt that the patient might have been over sedated and therefore, the patient was transferred to the ICU, started on BiPAP machine. He was given also IV Narcan as well as flumazenil and was started also on IV Zosyn. PHYSICAL EXAMINATION: GENERAL: When I saw him today, he was resting flat, comfortably in bed, in no apparent respiratory distress. He was pale, but no jaundice or cyanosis. No lymphadenopathy, no thyromegaly. No jugular venous distention. No lower limb edema. VITAL SIGNS: His heart rate was 54, blood pressure was 196/50, his temperature was 98.1. He did spike a temperature yesterday up to 100.6. His respiratory rate was 20 and oxygen saturation was 98% on 2 liters of oxygen. HEENT: Showed normocephalic, atraumatic. NECK: Supple. HEART: Showed normal first and second heart sounds. No gallop or murmur. CHEST: Shows central trachea, equal bilateral expansion, air entry, vesicular sounds. I could not really appreciate any crepitation or rhonchi. ABDOMEN: Scaphoid, soft, nontender. NEUROLOGIC: The patient is awake, opens his eyes and tracks, but does not really follow command. He is almost in a catatonic state. However, when I mentioned the word barbiturates, he actually attempted to mouth some word as he always asks for oral barbiturate. When I saw him last time at the [facility], he was insisting that he wants oral barbiturate to enhance the performance of his brain according to him. His intake and output are incompletely recorded. LABORATORY DATA: His lab work this morning showed the white cell count is down to 13,200, hemoglobin 10, hematocrit 33, MCV 87, and platelet count 214,000 with a manual differential showed 81% polymorphs, 10% lymphocytes, 9% monocytes. Serum sodium was 146, potassium 4.1, chloride 111, bicarbonate 27, anion gap of 8, BUN 17, creatinine 1.3, estimated GFR was 55 mL per minute. His glucose was 225, calcium was 8.4. Total bilirubin is 1.7. AST, ALT, alkaline phosphatase were normal. Total protein 6.2, albumin was 2.4. His arterial blood gas this morning showed a pH of 7.31, pCO2 of 49, pO2 of 54, bicarbonate of 25, and oxygen saturation was 94% on FiO2 of 40%. ASSESSMENT: 1. Acute hypoxic hypercapnic respiratory failure that apparently has resolved. 2. Aspiration pneumonia. 3. Longstanding schizoaffective disorder. 4. Probably excessive sedation. 5. The patient has multiple other medical problems including: A. Hypothyroidism. B. Type 2 diabetes mellitus. C. Hyperlipidemia. D. Hypertension. E. Benign prostatic hypertrophy. F. Stage 2 chronic kidney disease. G. Dysphagia. PLAN: My plan is to continue obviously with IV antibiotic. I will probably change his IV fluid, given that his sodium is rising and today it is 147, to D5W. I will also consult Dr. George to assist with his management. STEPHANIE GAMING MD DR: JAY/merced JOB#: [id number] / [id number]
[2020-03-04] MEDS: IV NORMAL SALINE 1,000ML 1,000 ML IV SCH (13:25)
[2020-03-04] MEDS: IV DEXTROSE 5% 1,000 ML IV SCH ×2 (14:17→21:23)
[2020-03-05] MEDS: PIPERACILLIN/TAZOBACTAM 3.375 GM in IV NORMAL SALINE 50ML 50 ML IV SCH ×2 (03:23→10:55)
[2020-03-05 05:50] VITALS: BP 99/57
[2020-03-05 05:51] VITALS: BP 99/57
[2020-03-05 07:12] LABS: HEMATOCRIT 29.9 % (39.0-53.0); RED BLOOD COUNT 3.51 x10^6/uL (4.30-5.70); RED CELL DISTRIBUTION WIDTH 16.6 % (11.5-14.5); WHITE BLOOD COUNT 7.8 x10^3/uL (4.0-11.0)
[2020-03-05 07:14] LABS: ALBUMIN 2.3 g/dL (3.4-5.0); ALBUMIN/GLOBULIN RATIO 0.9 (1.0-1.7); CALCIUM 8.4 mg/dL (8.5-10.1); CREATININE 1.1 mg/dL (0.7-1.3); GFR 67.8; POTASSIUM 3.3 mmol/L (3.5-5.1); TOTAL BILIRUBIN 1.5 mg/dL (0.2-1.0)
[2020-03-05] MEDS: IV DEXTROSE 5% 1,000 ML IV SCH ×2 (10:55→17:45)
[2020-03-05 11:08] VITALS: BP 110/48
--- NOTE | 2020-03-05 13:57 | DS ---
DATE OF DISCHARGE: 03/05/2020 HOSPITAL COURSE: The patient is a 64-year-old male patient who was transferred from [facility] with altered mental status, was found to have acute hypoxic hypercapnic respiratory failure and aspiration pneumonia. The patient continued to be extremely withdrawn, seemed almost like in catatonic state, and does not eat or drink, does not cooperate, although he opens his eyes and turn in bed occasionally spontaneously. He has extremely poor appetite. He is not eating or drinking. He is not cooperative or compliant with medication. He was on hospice and he continued to be probably appropriate for hospice given that he has not shown any improvement since he came to the [facility] and the fact that he probably was oversedated at one point in time. We have spoken with the social and political studies professor and a decision was made to transfer him back to his original facility to continue to go on hospice. PHYSICAL EXAMINATION: GENERAL: When I saw him today, he was resting flat in bed, in no apparent respiratory distress. He was somewhat pale, but no jaundice, cyanosis, or thyromegaly. No jugular venous distension. No lower limb edema. VITAL SIGNS: His heart rate was 68, blood pressure was 110/48, temperature was 99.1, respiratory rate was 20, and oxygen saturation was 97% on 4 liters of oxygen. HEAD, EYES, EARS, NOSE AND THROAT: Showed normocephalic, atraumatic. NECK: Supple. HEART: Showed normal first and second sounds. No gallop or murmur. CHEST: Showed central trachea, equally reduced expansion, reduced air entry, vesicular sounds. I could not appreciate any crepitation or rhonchi. ABDOMEN: Scaphoid, soft, nontender. NEUROLOGIC: He is awake, opens his eyes, but does not really follow command or cooperate, although grossly all his cranial nerves are intact. He managed to reposition himself occasionally spontaneously, but he continued to be noncompliant with care and medications. Continued to have extremely poor appetite. He is not eating or drinking. LABORATORY DATA: This morning showed a white cell count of 7800, hemoglobin 10, hematocrit 30, MCV 85, and platelet count of 194,000. His chemistry showed a serum sodium 141, potassium 3.3, chloride 107, bicarbonate 27, anion gap of 7, BUN 9, creatinine was 1.1, estimated GFR was 68 mL per minute, his glucose was 136, and calcium was 8.4. Total bilirubin is 1.5. AST, ALT, alkaline phosphatase were normal. Total protein 5, albumin was 2.3. His rapid coronavirus testing was negative. DISCHARGE MEDICATIONS: He was discharged back to skilled nursing to go on hospice and to continue on following medications: Acetaminophen 650 mg every 6 hours, Wellbutrin-XL 300 mg once a day, Colace 100 mg once a day, Aricept 10 mg once a day, glipizide 5 mg once a day, levothyroxine sodium 100 mcg once a day, magnesium oxide 400 mg twice a day, medroxyprogesterone 2.5 mg, he takes 5 mg twice a day, melatonin 6 mg at bedtime, metoprolol tartrate 25 mg, he takes 3 tablets twice a day, olanzapine 5 mg every 4 hours, Protonix 40 mg once a day, risperidone 2 mg daily, risperidone for Risperdal Consta 25 mg 2 mL intramuscular every 2 weeks, and sertraline for Zoloft 50 mg daily. FINAL DISCHARGE DIAGNOSES: 1. Acute hypoxic hypercapnic respiratory failure, resolved. 2. Aspiration pneumonia. 3. Longstanding schizoaffective disorder. 4. The patient has multiple other medical problems including: A. Hypothyroidism. D. Type 2 diabetes mellitus. C. Hypertension. D. Benign prostatic hypertrophy. E. Stage 2 chronic kidney disease. F. Dysphagia. STEPHANIE GAMING MD DR: JAY/merced JOB#: [id number] / [id number]
[2020-03-05 20:00] VITALS: BP 111/62
[2020-03-05 23:03] VITALS: BP 100/54
[2020-03-06 07:00] VITALS: BP 106/67
--- NOTE | 2020-03-06 17:41 | PN ---
DATE: 03/06/2020 SUBJECTIVE: The patient is continued to be extremely lethargic, nonverbal, refuses medication, refuses to eat and drink and we plan to discharge him back to his facility; however, transportation cannot be arranged until next week, and a decision was made to discharge him to inpatient hospice; however, we have not received yet the consent for approval by his court appointed DPOA. We will therefore continue with current plan of management. We did consult the hospitalist to evaluate him and to contact his DPOA, so that we can transfer him to inpatient hospice, as the patient is not really improving and he continued to be almost in a catatonic state. He was actually on hospice and was discharged because of failure to thrive, which does not make sense obviously. PHYSICAL EXAMINATION: GENERAL: When I saw him today, he looked pale, no jaundice, cyanosis or thyromegaly. No jugular venous distention. No limb edema. VITAL SIGNS: His heart rate was 66, blood pressure was 106/67, temperature was 98.9, respiratory rate was 18, and oxygen saturation was 99% on 3 liters of oxygen. HEAD, EYES, EARS, NOSE, AND THROAT: Showed normocephalic, atraumatic. NECK: Supple. HEART: Showed normal first and second heart sounds. No gallop or murmur. CHEST: Clear to auscultation. No crepitation or rhonchi. ABDOMEN: Distended, soft, nontender. NEUROLOGIC: He is awake, alert, open his eyes, tracks times and attempts to mouth some words. All his cranial nerves are intact. He moves his upper extremities to much good extent than lower extremities. He is mostly bedbound. His intake over the last 24 hours was 2200, no output was recorded. LABORATORY DATA: His most recent lab work showed a white cell count of 7800, hemoglobin 10, hematocrit 30, MCV 85, and platelet count 194,000. His chemistry showed a serum sodium 141, potassium 3.3, chloride 107, bicarbonate 27, anion gap of 7, BUN 9, creatinine 1.1, estimated GFR was 67 mL per minute. His glucose 136, calcium was 8.5. Total bilirubin is slightly elevated; however, AST, ALT, alkaline phosphatase are normal. Total protein 5, albumin 2.3. He is COVID negative. ASSESSMENT: 1. Acute hypoxic hypercapnic respiratory failure, resolved. 2. Aspiration pneumonia. 3. Longstanding schizoaffective disorder. 4. The patient has multiple other medical problems including: A. Hypothyroidism. B. Type 2 diabetes mellitus. C. Hypertension. D. Benign prostatic hypertrophy. E. Stage 2 chronic kidney disease. F. Dysphagia. PLAN: To await evaluation by hospice and the consent by his DPOA, and we will discharge him to inpatient hospice care. STEPHANIE GAMING MD DR: JAY/merced JOB#: [id number] / [id number]
--- NOTE | 2020-03-07 09:09 | DS ---
DATE OF DISCHARGE: 03/06/2020 HOSPITAL COURSE: The patient is a 64-year-old male patient who was transferred from [facility] with altered mental status, was found to have acute hypoxic hypercapnic respiratory failure, aspiration pneumonia. The patient continued to be extremely withdrawn, seemed almost like in a catatonic state. He does not eat or drink. Does not cooperate, although he opens eyes and turn in bed occasionally spontaneously. He has extremely poor appetite. He is not cooperative or compliant with medications. He was on hospice and he continued to be probably appropriate for hospice given that he has not shown any improvement since he came to the [facility]. We have spoken with his DPOA, given he continued to do poorly and a decision was made to discharge him to inpatient hospice. PHYSICAL EXAMINATION: GENERAL: When I saw him on the day of discharge, he looked well and was clearly in no apparent respiratory distress, somewhat pale, but no jaundice, cyanosis or thyromegaly. No jugular venous distention. No limb edema. VITAL SIGNS: Her heart rate was 66, blood pressure was 106/67, temperature was 98.9, respiratory rate was 16, and oxygen saturation was 99% on 3 liters of oxygen. HEAD, EYES, EARS, NOSE AND THROAT: Showed normocephalic and atraumatic. NECK: Supple. HEART: Showed normal first and second heart sounds with no gallop, rub or murmur. CHEST: Showed central trachea, equally reduced expansion, reduced air entry, vesicular sounds. No crepitation or rhonchi. ABDOMEN: Scaphoid, soft, nontender. NEUROLOGICAL: He continued to be encephalopathic. DISCHARGE MEDICATIONS: The patient was discharged to an inpatient hospice care. We have discontinued all his medication and was started on comfort care in the form of morphine, Ativan. FINAL DISCHARGE DIAGNOSES: 1. Acute hypoxic hypercapnic respiratory failure. 2. Aspiration pneumonia. 3. Longstanding schizoaffective disorder. 4. The patient has multiple other medical problems including: A. Hypothyroidism. B. Type 2 diabetes mellitus. C. Hypertension. D. Benign prostatic hypertrophy. E. Stage 2 chronic kidney disease. F. Dysphagia with recurrent aspiration. STEPHANIE GAMING MD DR: JAY/merced JOB#: [id number] / [id number]
== END 2020-03-06 16:15 | disposition hospice, inpatient (51) | DRG 177 ==
LOC: ICU 08:38
PROVIDERS: ADMIT Hospitalist; ATTEND Hospitalist
PROC: 5A09357 Assistance with Respiratory Ventilation, Less than 24 Consecutive Hours, Continuous Positive Airway Pressure (ICD-10-PCS; 2020-03-03)
PROC: 5A09357 Assistance with Respiratory Ventilation, Less than 24 Consecutive Hours, Continuous Positive Airway Pressure (ICD-10-PCS; principal; 2020-03-04)
DX: J69.0 Pneumonitis due to inhalation of food and vomit (principal); J96.02 Acute respiratory failure with hypercapnia; J96.01 Acute respiratory failure with hypoxia; E03.9 Hypothyroidism, unspecified; E11.22 Type 2 diabetes mellitus with diabetic chronic kidney disease; E78.5 Hyperlipidemia, unspecified; F03.90 Unspecified dementia, unspecified severity, without behavioral disturbance, psychotic disturbance, mood disturbance, and anxiety; F25.9 Schizoaffective disorder, unspecified; I12.9 Hypertensive chronic kidney disease with stage 1 through stage 4 chronic kidney disease, or unspecified chronic kidney disease; N18.2 Chronic kidney disease, stage 2 (mild); N40.0 Benign prostatic hyperplasia without lower urinary tract symptoms; R13.10 Dysphagia, unspecified; R62.7 Adult failure to thrive; W22.01XA Walked into wall, initial encounter; Z66 Do not resuscitate; Z20.822 Contact with and (suspected) exposure to COVID-19
CPT/HCPCS: 36415; 36600; 71045; 80048; 80053; 82803; 82947; 84443; 85007; 85025; 85027; 87426; 94660; J1815; J2060; J2310; J2543; J3490; U0003; J7030

== ENCOUNTER 2020-03-06 16:20 | Inpatient (IN) | payer OTHER ==
[~2020-03-06] VITALS: Ht 170.2 cm; Wt 59.8 kg
[~2020-03-06 16:20] MED LIST changes: +ACET-1874 PO; +BUPR300T92 PO; +GLIP5TAB22 PO; +MAGN400T5 PO; +MELA3CAP2 PO; +METH57CR17 TP; +OLAN5TAB3 PO; +RISP25DI IM; +RISP2TAB33 PO
--- NOTE | 2020-03-06 16:30 | NUR ---
Luis Carlos Cabrera 64 yo Male was admitted to inpatient hospice, under [facility] and Dr. Vera. [facility] has spoken with pt's legal guardian, Elizabeth Henderson. Hospice medication orders were obtained: Morphine ANIMAL HOSPITAL CLERK, Ativan IVP, Atropine SL, and Tylenol Supp. Inpatient hospice protocols started.
[2020-03-06] MEDS ORDERED: ACETAMINOPHEN 650 MG SUPP.RECT. PR PRN (18:00)
[2020-03-06] MEDS: ATROPINE 1% OPHTH SOLUTION 5ML BOTTLE. SL SCH (18:51)
[2020-03-06] MEDS: MORPHINE SULFATE 30 MG/30 ML 30 ML IV PRN (19:38)
[2020-03-07] MEDS: ATROPINE 1% OPHTH SOLUTION 5ML BOTTLE. SL SCH ×10 (00:29→18:00)
[2020-03-07 02:27] VITALS: BP 106/67
[2020-03-07] MEDS: MORPHINE SULFATE 30 MG/30 ML 30 ML IV PRN ×2 (08:06→19:00)
--- NOTE | 2020-03-07 09:30 | HP ---
ADMIT DATE: HISTORY OF PRESENT ILLNESS: The patient is a 65-year-old male patient who was admitted to [facility] on 02/23. He is a resident at [facility] and who was admitted on account of stating that he wants to . He is noncompliant with his medication, hitting staff, agitated, yelling and cursing at staff, isolating himself. He was taken off hospice on 02/11/2020 for failure to thrive and all this is in a background of schizoaffective disorder, bipolar type, mixed with psychotic features, anxiety disorder, impulse control disorder. He was at [facility] and he was transferred to [facility] with altered mental status and was found to have acute hypoxic hypercapnic respiratory failure for which he was started on BiPAP; however, the patient continued to do poorly, he continued to be encephalopathic, mostly nonverbal. He is not eating or drinking and therefore, a decision to withdraw care and had admission to inpatient hospice was made after discussing this option with his DPOA, who consented and the patient was admitted to inpatient hospice. PHYSICAL EXAMINATION: GENERAL: When I saw him today, he was resting slightly propped up in bed, in no apparent distress. He continued to be encephalopathic, pale, but no jaundice, cyanosis or thyromegaly. No jugular venous distention or limb edema. VITAL SIGNS: Her heart rate was 65, blood pressure 106/67, temperature was 97.9, respiratory rate 20, and oxygen saturation was 93% on room air. HEAD, EYES, EARS, NOSE AND THROAT: Showed normocephalic and atraumatic. NECK: Supple. HEART: Showed normal first and second heart sounds. No gallop, rub or murmur. CHEST: Clear to auscultation. No crepitation or rhonchi. ABDOMEN: Scaphoid, soft, nontender. NEUROLOGIC: He was grossly intact, although he continued to be encephalopathic. ASSESSMENT: 1. Acute on chronic hypoxic hypercapnic respiratory failure. 2. Aspiration pneumonia. 3. Longstanding schizoaffective disorder. 4. The patient has multiple other medical problems including; A. Hypothyroidism. B. Type 2 diabetes mellitus. C. Hypertension. D. Benign prostatic hypertrophy. E. Stage 2 chronic kidney disease. F. Dysphagia with recurrent aspiration. PLAN: To continue with comfort care. He is now on morphine, Ativan, scopolamine patch. STEPHANIE GAMING MD DR: JAY/merced JOB#: [id number] / [id number]
--- NOTE | 2020-03-07 12:14 | NUR ---
Patient becoming restless and appearing to have increased shortness of breath. Morphine GRADES 6 THROUGH 8 TEACHER increased to 4 mg/hr and IV Ativan given for air hunger. Will continue to critically monitor, patient resting comfortably at this time.
[2020-03-07] MEDS ORDERED: IV NORMAL SALINE 1,000ML 1,000 ML IV SCH (12:15)
--- NOTE | 2020-03-07 14:48 | NUR ---
Patient continuing to exhibit air hunger, worse with repositioning. Morphine increased to 8 mg/hr to assist. Will continue to monitor.
--- NOTE | 2020-03-07 17:55 | NUR ---
Patient transferred over to [facility] Bed 111 from ICU. Patient transferred with all belongings in bed. Patient tolerated transport well and is resting comfortably in bed on Morphine OPERATIONS LIAISON at this time. Will continue to monitor.
--- NOTE | 2020-03-07 19:40 | NUR ---
Notified MD of .
--- NOTE | 2020-03-07 21:20 | NUR ---
Pt at 1938. Multiple attempts made by myself and hospice nurse to contact the legal guardian; pt has a court appointed guardian from [place], [place]. Answering service told me they only page on-call manager to give permission to admit to psych facilities outside of business hours; explained the situation and she paged on-call manager but no return call. Hospice nurse Radha stated in these cases they have called the equipment service associate office to store body until further arrangements can be made. [facility] was notified and on-call manager called back to speak with me. Unfortunetly I do not remember her name, but she made arrangements for the pt's body to be picked up by [employer] [facility]. Paperwork will be sent with the body and they will communicate with the guardian during office hours on Monday. BENJAMIN Hospice nurse Garcia present and notified of these plans.
--- NOTE | 2020-03-30 09:41 | DS ---
DATE OF DISCHARGE: 03/07/2020 HOSPITAL COURSE: The patient is a 64-year-old male patient who was originally admitted to [facility] on 02/23. He is a resident at [facility] [place] and who was admitted on account of stating that he wants to . He is noncompliant with his medication, hitting staff, agitated, yelling and cursing at staff, isolating himself. He was taken off hospice on 02/11/2020 for failure to thrive and all this is in a background of schizoaffective disorder, bipolar type, mixed with psychotic features, anxiety disorder and impulse control disorder. [facility] at [facility] and he was transferred to [address] [place] [address] and with altered mental status and was found to be in acute hypoxic hypercarbic respiratory failure for which he was started on BiPAP; however, the patient continued to do poorly, he continued to be encephalopathic, mostly nonverbal. He is not eating and drinking and therefore, a decision was made to withdraw care and the patient was admitted to inpatient hospice and after discussing this option with his DPOA, who consented and therefore, the patient was started on morphine drip as well as Ativan. The patient's condition deteriorated and on examining, the patient was found to have no spontaneous breathing, no palpable pulses or audible heart sounds and was pronounced at around 2120 hours on 03/07/2020. CAUSE OF : Cardiopulmonary arrest, acute on chronic hypoxic hypercapnic respiratory failure, aspiration pneumonia, dysphagia with recurrent aspiration. STEPHANIE GAMING MD DR: JAY/merced JOB#: [id number] / [id number]
== END 2020-03-07 23:10 | DRG 189 ==
LOC: ICU 16:20 → 1 SOUTH 03-07 18:05
PROVIDERS: ADMIT Internal Medicine; ATTEND Internal Medicine
DX: J96.22 Acute and chronic respiratory failure with hypercapnia (principal); J69.0 Pneumonitis due to inhalation of food and vomit; G93.40 Encephalopathy, unspecified; J96.21 Acute and chronic respiratory failure with hypoxia; I46.9 Cardiac arrest, cause unspecified; E03.9 Hypothyroidism, unspecified; E11.22 Type 2 diabetes mellitus with diabetic chronic kidney disease; F25.0 Schizoaffective disorder, bipolar type; F41.9 Anxiety disorder, unspecified; F63.9 Impulse disorder, unspecified; I12.9 Hypertensive chronic kidney disease with stage 1 through stage 4 chronic kidney disease, or unspecified chronic kidney disease; N18.2 Chronic kidney disease, stage 2 (mild); N40.0 Benign prostatic hyperplasia without lower urinary tract symptoms; R13.10 Dysphagia, unspecified; R62.7 Adult failure to thrive; Z51.5 Encounter for palliative care; Z91.14 Patient's other noncompliance with medication regimen; Z68.20 Body mass index [BMI] 20.0-20.9, adult
CPT/HCPCS: J2060; J2270; Q5005